=== PATIENT | male | born 1995 | race Caucasian/White ===

== ENCOUNTER 2018-01-11 13:30 | Emergency (ER) | payer MEDICAID, SELFPAY ==
[2018-01-11 13:31] VITALS: BP 163/69; PULSE 98; RESP 16; TEMP 36.6; O2SAT 97; BMI 40.6
[2018-01-11 15:10] LABS: Absolute Lymphocyte Count 2.82 X10^3/ul (0.83-4.51); Absolute Neutrophil Count 5.2 X10^3/uL (2.0-7.7); Basophil# 0.02 X10^3/uL; Basophil% 0.2 % (0-1); Eosinophil# 0.36 X10^3/uL; Eosinophils% 3.9 % (0-5); Hematocrit 43.9 % (40-54); Lymphocyte # 2.82 X10^3/ul (4.0); Lymphocyte % 30.8 % (19-41); Mean Corp Hgb Conc 34.2 g/gl (32-36); Mean Corpuscular Hgb 32.7 pg (27.0-32.0); Mean Corpuscular Volume 95.6 fL (80-94); Mean Platelet Vol. 10.1 fl (6.2-12.0); Monocyte# 0.77 X10^3/uL; Monocyte% 8.4 % (0-10); Neutrophil # 5.17 X10^3/uL (2.7-7.7); Neutrophil % 56.6 % (47-70); POSITIVE COUNT NO; POSITIVE DIFFERENTIAL NO; POSITIVE MORPHOLOGY NO; Platelet Count 207 K/mm3 (150-450); RBC Distribution Width CV 12.3 % (11.6-14.6); RBC Distribution Width SD 42.1 fl (35.1-43.9); Red Blood Count 4.59 M/mm3 (4.6-6.2); White Blood Count 9.2 K/mm3 (4.4-11.0)
[2018-01-11 15:17] LABS: Anion Gap 5 (5-15); BUN 14 mg/dL (7-18); BUN/Creat Ratio 10.1 RATIO (10-20); Calcium,Total 8.2 mg/dL (8.5-10.1); Chloride 108 mmol/L (98-107); Creatinine, Serum 1.38 mg/dL (0.70-1.30); EST Glomerular Filtration Rate 68 mL/min (>60); Est Glom Filt Rate - Afr Amer 83 mL/min (>60); Estimated Creatinine Clearance 86.69 ml/min; Glucose 94 mg/dL (74-106); Potassium 4.1 mmol/L (3.5-5.1); Sodium Level 142 mmol/L (136-145)
--- NOTE | 2018-01-11 15:28 | ED.DCSUM_ITS ---
- ER Visit Summary Date of Service: 01/11/18 Chief Complaint: Blood in stool History of Present Illness: The patient is a 22 M with no primary care physician. He reports that he has had blood on the tissue when he wipes approximately 1 week. States initially looks clotted and then becomes bright red blood. States there is no blood in the commode. States he has had this previously with hemorrhoids. Patient complains of a dull lower abdominal pain that is 7 out of 10 at worst and 3 out of 10 currently. Is worsened by eating or having a bowel movement. Is relieved by nothing. He has had nausea without vomiting. No diarrhea. No dysuria or frequency. No family history of Crohn's or ulcerative colitis. No fever or chills. Physical Examination: Vitals: Stable. Afebrile. General: Well-nourished and well-developed. Head: Normocephalic atraumatic. Neck: Supple, no lymphadenopathy. No JVD. Nontender. Cardiovascular: Regular rate and rhythm. No murmurs. Respiratory: No respiratory distress. Clear to auscultation bilaterally. Abdominal: Soft, nontender, nondistended, normal bowel sounds. No guarding, rebound, or peritoneal signs. Rectal: Anal fissure at the 12 o'clock in the prone position. Back: Nontender. Extremities: Nontender, no edema. Skin: Normal color, no rash. Neurologic: Alert and oriented ?3. Cranial nerves II through XII are intact. Normal strength and sensation. Psych: Normal affect. Test Results: CBC is normal. Hemoglobin is 15. Chem-7 is more for chloride of 108, creatinine 1.3, calcium 8.2. Creatinine in 2016 was 1.36. Emergency Department Course and Treatment: Patient is resting comfortably without complaint. Treatment Plan: Patient be discharged on Colace instructed up Dr. Montelongo in 10- 14 days if not improving. Disposition: To home in improved and stable condition. Impression: 1. Anal fissure. This note was generated with [employer] dictation software. It may contain incorrect words, spelling, and punctuation that were not noted in review of the chart prior to signing ED Disposition - Plan for ED Patient: Disposition: Home or Assisted Living Chief Complaint: GI Bleed Instructions: ED Fissure Anal Ch Prescriptions: Docusate Sodium [Colace] 100 mg PO DAILY #20 capsule Referrals: Cruz Montelongo MD [STAFF PHYSICIAN] - 10-14 Days if not better
[2018-01-11 15:36] VITALS: PULSE 87; RESP 16; O2SAT 98
== END 2018-01-11 15:37 | disposition home or self-care (01) ==
PROVIDERS: Emergency Provider Emergency Medicine
DX: K60.0 Acute anal fissure (principal); Q60.0 Renal agenesis, unilateral; Z72.0 Tobacco use
CPT/HCPCS: 36415; 80048; 85025; 99282

== ENCOUNTER 2018-06-14 16:54 | Emergency (ER) | payer SELFPAY ==
[2018-06-14 16:55] VITALS: BP 155/92; PULSE 89; RESP 18; TEMP 36.6; O2SAT 97; BMI 40.5
[2018-06-14] MEDS: Ondansetron 4 MG/2 ML Vial IV (17:26)
[2018-06-14] MEDS: 0.9% Normal Saline 1,000 ML 999 ML IV (17:26)
[2018-06-14 17:46] LABS: Absolute Lymphocyte Count 1.97 X10^3/ul (0.83-4.51); Absolute Neutrophil Count 5.8 X10^3/uL (2.0-7.7); Basophil# 0.02 X10^3/uL; Basophil% 0.2 % (0-1); Eosinophil# 0.06 X10^3/uL; Eosinophils% 0.7 % (0-5); Hematocrit 49.7 % (40-54); Hemoglobin 17.1 g/dl (13.0-16.5); Lymphocyte # 1.97 X10^3/ul (4.0); Lymphocyte % 22.8 % (19-41); Mean Corp Hgb Conc 34.4 g/gl (32-36); Mean Corpuscular Hgb 32.7 pg (27.0-32.0); Mean Platelet Vol. 10.2 fl (6.2-12.0); Monocyte# 0.73 X10^3/uL; Monocyte% 8.5 % (0-10); Neutrophil # 5.84 X10^3/uL (2.7-7.7); Neutrophil % 67.7 % (47-70); Platelet Count 231 K/mm3 (150-450); RBC Distribution Width CV 12.2 % (11.6-14.6); Red Blood Count 5.23 M/mm3 (4.6-6.2); White Blood Count 8.6 K/mm3 (4.4-11.0)
[2018-06-14 17:47] LABS: POSITIVE COUNT NO; POSITIVE DIFFERENTIAL NO; POSITIVE MORPHOLOGY NO
[2018-06-14 18:05] LABS: Anion Gap 5 (5-15); BUN 11 mg/dL (7-18); BUN/Creat Ratio 6.8 RATIO (10-20); Calcium,Total 9.3 mg/dL (8.5-10.1); Chloride 108 mmol/L (98-107); Creatinine, Serum 1.62 mg/dL (0.70-1.30); EST Glomerular Filtration Rate 57 mL/min (>60); Est Glom Filt Rate - Afr Amer 69 mL/min (>60); Estimated Creatinine Clearance 71.52 ml/min; Glucose 101 mg/dL (74-106); Potassium 3.8 mmol/L (3.5-5.1); Sodium Level 141 mmol/L (136-145)
[2018-06-14 18:06] LABS: Squamous Epithelial Cells - UA 0 SEEN /hpf (0-5)
[2018-06-14 19:02] LABS: Color, Urine Yellow (Yellow); Glucose, Dipstick Normal (Normal); Ketone-Dipstick 5 mg/dl (Negative); Leukocyte Esterase-Dipstick 25 /ul (Negative); Nitrite-Dipstick Negative (Negative); Occult Blood-Urine 10 /ul (Negative); Protein-Dipstick 500 mg/dl (Negative); Urine Clarity Sl. Cloudy (Clear); Urine Urobilinogen 4 mg/dl (Normal)
[2018-06-14 19:18] LABS: Urine Bilirubin Dipstick 1 mg/dL (Negative)
[2018-06-14 19:19] VITALS: BP 141/85; PULSE 80; RESP 14; O2SAT 98
[2018-06-14 19:19] LABS: Mucous, Urine 1+ /hpf (<or=2+)
[2018-06-14 19:20] LABS: Hyaline Cast 0-5 SEEN /lpf (0-5)
[2018-06-14 19:23] LABS: Bacteria RARE /hpf (None Seen); White Blood Cells 0-5 SEEN /hpf (0-5)
[2018-06-14 19:24] LABS: Red Blood Cells-Urine 0-5 SEEN /hpf (0-5)
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
[2018-06-14 21:02] VITALS: BP 136/75; PULSE 85; RESP 14; O2SAT 98
== END 2018-06-14 21:04 | disposition home or self-care (01) ==
LOC: ED 17:45
PROVIDERS: Emergency Provider Emergency Medicine
DX: R10.32 Left lower quadrant pain (principal); Y09 Assault by unspecified means; N18.9 Chronic kidney disease, unspecified; Z90.5 Acquired absence of kidney; Z72.0 Tobacco use
CPT/HCPCS: 71250; 74176; 80048; 81001; 85025; 96361; 96374; 99283; J7030; A4216

== ENCOUNTER 2018-07-09 21:04 | Emergency (ER) | payer SELFPAY ==
[2018-07-09 21:06] VITALS: BP 141/81; PULSE 97; RESP 18; TEMP 36.4; O2SAT 95; BMI 40.1
== END 2018-07-09 21:20 | disposition left against medical advice (07) ==
LOC: ED 21:22
PROVIDERS: Emergency Provider Emergency Medicine
DX: R69 Illness, unspecified (principal); Z53.21 Procedure and treatment not carried out due to patient leaving prior to being seen by health care provider

== ENCOUNTER 2018-07-22 11:09 | Emergency (ER) | payer SELFPAY ==
[2018-07-22 11:10] VITALS: BP 148/89; PULSE 114; RESP 20; TEMP 36.6; O2SAT 96; BMI 36.9
--- NOTE | 2018-07-22 11:28 | ED.VISSUMM ---
- ER Visit Summary Date of Service: 07/22/18 Chief Complaint: Cough, shortness of breath History of Present Illness: The patient is a 22 M with cough and dyspnea. Patient states over the past 4-5 days, he has had gradually increasing cough with productive sputum and shortness of breath. He states over the past 2 days, he is begun to have fevers and chills. He denies any chest pain. He just states he feels he cannot catch his breath. He does have a history of pneumonia and states that this feels similar. He denies back pain or dysuria. He has not found anything that improved his symptoms. Physical Examination: Vital signs reviewed General: Well-nourished, well-developed Head: Normocephalic, atraumatic Eyes: Pupils equal and reactive, extraocular muscles intact Neck, supple, no lymphadenopathy Heart: Regular rate and rhythm Respiratory: No distress, wheezing with bronchospasm in all lung marie Abdomen: Soft, nontender, nondistended, no peritoneal signs Back: Nontender Extremities: Nontender, no edema, no cords Skin: Normal color no rash Neuro: Alert and oriented, no focal or lateralizing deficits Test Results: [] Emergency Department Course and Treatment: The patient presents with cough, productive sputum, and fevers and chills. He does have wheezing all lung marie. IV was established. He was given fluids, Solu-Medrol, nebulized aerosols. He had marked improvement of his aeration. He had resolution of his wheezing. His repeat heart rate and respiratory rate within normal limits. Screening labs do show leukocytosis and demonstration of his mild chronic kidney disease. X-ray does not show any definitive pneumonia. Given the patient's infectious symptoms, leukocytosis, productive sputum and wound cover him with azithromycin. He will be kept on prednisone and an albuterol inhaler. He was counseled on concerning symptoms and reasons to return. Again, on reevaluation he is resting comfortably. I do feel that he is safe for outpatient therapy. Treatment Plan: [] Disposition: Discharge Impression: 1. Infectious bronchitis This note was generated with [employer] dictation software. It may contain incorrect words, spelling, and punctuation that were not noted in review of the chart prior to signing ED Disposition - Plan for ED Patient: Chief Complaint: Cold Sx Instructions: ED Upper Resp Infec Abx Tx Prescriptions: Albuterol Inhaler [Ventolin Hfa] 1 - 2 puff INHALATION Q4H PRN PRN #1 inhaler PRN Reason: Wheezing Azithromycin [Zithromax Z-Nico] 250 mg PO UD #1 box Prednisone 10 mg PO UD #33 tab Referrals: Care Physician,No Primary [Primary Care Provider] -
[2018-07-22] MEDS: Ipratropium/Albuterol Sulfate 3 ML AMPUL.NEB INHALATION (11:34)
[2018-07-22 11:35] VITALS: PULSE 104; RESP 18
[2018-07-22] MEDS: Albuterol 2.5 MG/3 ML VIAL.NEB. INHALATION ×2 (11:39→11:47)
[2018-07-22] MEDS: 0.9% Normal Saline 1,000 ML 150 ML IV (11:42)
[2018-07-22] MEDS: MethylPREDNISolone 125 MG/2 ML Vial IV (11:42)
[2018-07-22 11:54] LABS: Absolute Lymphocyte Count 1.88 X10^3/ul (0.83-4.51); Absolute Neutrophil Count 13.5 X10^3/uL (2.0-7.7); Basophil# 0.01 X10^3/uL; Basophil% 0.1 % (0-1); Eosinophil# 0.13 X10^3/uL; Eosinophils% 0.8 % (0-5); Hematocrit 48.4 % (40-54); Hemoglobin 16.9 g/dl (13.0-16.5); Lymphocyte # 1.88 X10^3/ul (4.0); Lymphocyte % 10.9 % (19-41); Mean Corp Hgb Conc 34.9 g/gl (32-36); Mean Corpuscular Hgb 32.9 pg (27.0-32.0); Mean Corpuscular Volume 94.3 fL (80-94); Mean Platelet Vol. 10.3 fl (6.2-12.0); Monocyte# 1.71 X10^3/uL; Monocyte% 9.9 % (0-10); Neutrophil # 13.52 X10^3/uL (2.7-7.7); Neutrophil % 78.1 % (47-70); Platelet Count 224 K/mm3 (150-450); RBC Distribution Width CV 11.8 % (11.6-14.6); RBC Distribution Width SD 40.4 fl (35.1-43.9); Red Blood Count 5.13 M/mm3 (4.6-6.2); White Blood Count 17.3 K/mm3 (4.4-11.0)
[2018-07-22 11:55] LABS: Differential Indicated SCAN CRITERIA MET; POSITIVE COUNT NO; POSITIVE DIFFERENTIAL YES; POSITIVE MORPHOLOGY NO
--- NOTE | 2018-07-22 12:00 | RAD_ITS ---
STUDY: X-RAY CHEST REASON FOR EXAM: Male, 22 years old. Cough. TECHNIQUE: PA and lateral views of the chest. COMPARISON: Comparison is made with prior study dated March 17, 2017. FINDINGS: EKG electrodes are seen. The lungs are clear and expanded. There is no demonstrated pleural abnormality. Normal size heart. Normal mediastinum and clyde. Normal visualized pulmonary arteries. Normal visualized aortic arch and descending thoracic aorta. Normal visualized thoracic spine. Normal visualized ribs, clavicles, and shoulders. There is no demonstrated abnormality of the visualized soft tissue structures of the upper abdomen. RAD/Chest PA and Lateral IMPRESSION: Normal x-ray examination of the chest. Electronically Signed: Fawad Lopez MD at 12:23 EDT Tel [phone], Service support ,
[2018-07-22 12:07] LABS: Anion Gap 11 (5-15); BUN 17 mg/dL (7-18); BUN/Creat Ratio 10.6 RATIO (10-20); Calcium,Total 9.1 mg/dL (8.5-10.1); Chloride 104 mmol/L (98-107); Creatinine, Serum 1.61 mg/dL (0.70-1.30); EST Glomerular Filtration Rate 57 mL/min (>60); Est Glom Filt Rate - Afr Amer 69 mL/min (>60); Estimated Creatinine Clearance 71.97 ml/min; Glucose 98 mg/dL (74-106); Potassium 3.8 mmol/L (3.5-5.1); Sodium Level 138 mmol/L (136-145)
[2018-07-22 12:16] LABS: Reactive Lymphocyte RARE
[2018-07-22 12:56] VITALS: BP 120/79; PULSE 109; RESP 16; O2SAT 92
== END 2018-07-22 13:00 | disposition home or self-care (01) ==
LOC: ED 12:27
PROVIDERS: Emergency Provider Emergency Medicine
DX: J20.8 Acute bronchitis due to other specified organisms (principal); D72.829 Elevated white blood cell count, unspecified; N18.9 Chronic kidney disease, unspecified
CPT/HCPCS: 71046; 80048; 85025; 94640; 96361; 96374; 99284; A4216

== ENCOUNTER → 2018-08-30 13:26 | Outpatient (CLI) | payer SELFPAY ==
--- NOTE | 2018-08-30 13:30 | US_ITS ---
STUDY: RENAL ULTRASOUND - COMPLETE REASON FOR EXAM: Male, 22 years old. Renal disease TECHNIQUE: Ultrasound evaluation of the kidneys was performed with real-time and static noble-scale imaging. COMPARISON: None. 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 LEFT KIDNEY: with mild renal hypertrophy. The left kidney measures 14.1 x 5.2 x 6.8 cm. There is a normal cortex of the left kidney. The renal cortex measures 2.3 cm. There is no left renal mass or cyst. There are no left renal calculi. There is no left hydronephrosis. DISTAL LEFT URETER: There is non-visualization of the distal left ureter. There is no demonstrated left ureterovesical junction calculus. There is a visualized left ureteral jet. AORTA: Obscured. BLADDER: The distended urinary bladder has a volume of 103.9 ml. US/Kidney and Bladder IMPRESSION: Agenesis of the RIGHT kidney. LEFT kidney is hypertrophic. There are NO stones, masses or cysts. There is NO hydronephrosis. Urinary bladder is unremarkable. Electronically Signed: Jefferson Velázquez MD at 5:26 EST , Service support ,
== END ==
LOC: US 13:27
PROVIDERS: Referring Provider Internal Medicine Nephrology; Visit Provider Internal Medicine Nephrology
DX: N18.3 Chronic kidney disease, stage 3 (moderate) (principal); Q60.0 Renal agenesis, unilateral
CPT/HCPCS: 76770

== ENCOUNTER 2018-09-28 21:57 | Emergency (ER) | payer SELFPAY ==
[2018-09-28 21:58] VITALS: BP 167/96; PULSE 92; RESP 16; TEMP 36.9; O2SAT 100; BMI 39.0
[2018-09-28] MEDS: Ondansetron 4 MG/2 ML Vial IV (22:24)
[2018-09-28] MEDS: 0.9% Normal Saline 1,000 ML 1000 ML IV (22:24)
[2018-09-28 22:46] LABS: Anion Gap 8 (5-15); BUN 14 mg/dL (7-18); Calcium,Total 8.7 mg/dL (8.5-10.1); Chloride 104 mmol/L (98-107); EST Glomerular Filtration Rate 67 mL/min (>60); Est Glom Filt Rate - Afr Amer 81 mL/min (>60); Estimated Creatinine Clearance 85.46 ml/min; Glucose 90 mg/dL (74-106); Potassium 3.8 mmol/L (3.5-5.1); Sodium Level 138 mmol/L (136-145)
--- NOTE | 2018-09-28 22:56 | ED.VISSUMM ---
- ER Visit Summary Date of Service: 09/28/18 Chief Complaint: Presents from work for nausea and vomiting History of Present Illness: The patient is a 22 M who has history of end-stage renal disease, stage III who presents with nausea and vomiting. States he is vomiting because of his renal disease. He has history of hypertension tension. Is present on no antihypertensive meds. He denies headache. Eyes double vision blurred vision loss of vision. Eyes trouble with speech or swallowing. Eyes paresthesia, anesthesia motors. Denies trouble with balance or walking. He denies diarrhea. He denies hematemesis, melena hematochezia. He reports decreased urine output. He complained of 5-minute anterior right midclavicular chest pain that was worse with movement not exertion. Physical Examination: Vital signs noted blood pressure is elevated 167/96. Head is atraumatic normocephalic. Pupils are equal round reactive. Extraocular muscles are intact. Funduscopic exam reveals normal cup-to-disc ratio has no papilledema. TMs are pearly white with landmarks noted. Nares patent with no drainage. Posterior pharynx without erythema or exudate. Uvula is midline. There is no dysphonia or dysphasia. Trachea is midline. There is no stridor with auscultation of the neck. Neck is supple. There is no carotid bruit. Heart is regular without murmur, gallop or rub. S1 and S2 are normal. Lungs are clear to auscultation with good movement of air bilaterally. Abdomen is soft nontender bowel sounds are present normal. There is no CVA tenderness noted. Patient is alert and oriented ?3. Motor is 5 over 5. Sensory is intact. DTRs are symmetric with no clonus or Babinski sign. Cranial 2 through 12 are intact. Cerebellar testing is normal. Test Results: Basic metabolic panel is remarkable for a creatinine 1.4. Emergency Department Course and Treatment: Since he has dry mucosa and tongue 1 L of normal saline was administered and he was given 4 mg Zofran. He is not had any nausea vomiting. His creatinine is baseline. Treatment Plan: Antiemetic Disposition: Discharge to home with note for work that he was seen here. Impression: 1. Nausea vomiting 2. Stage III renal disease 3. Hypertension This note was generated with [employer] software. It may contain incorrect words, spelling, and punctuation that were not noted in review of the chart prior to signing ED Disposition - Plan for ED Patient: Disposition: Home or Assisted Living Chief Complaint: General Illness Instructions: ED Nausea Vomiting, ED HTN Established, ED Insufficiency Renal Prescriptions: Ondansetron [Zofran Odt] 4 mg PO Q8H PRN PRN #10 tablet PRN Reason: Nausea Lisinopril [Zestril] 10 mg PO DAILY #30 tablet Referrals: Care Physician,No Primary [Primary Care Provider] - Claudia Quan [NON-STAFF] - 1 Week Additional Instructions: Your prescriptions were electronically transmitted to [facility] [place].
[2018-09-28] MEDS: Lisinopril 10 MG Tablet PO (23:13)
== END 2018-09-28 23:16 | disposition home or self-care (01) ==
PROVIDERS: Emergency Provider Emergency Medicine
DX: R11.2 Nausea with vomiting, unspecified (principal); I12.9 Hypertensive chronic kidney disease with stage 1 through stage 4 chronic kidney disease, or unspecified chronic kidney disease; N18.3 Chronic kidney disease, stage 3 (moderate); R07.9 Chest pain, unspecified
CPT/HCPCS: 80048; 96361; 96374; 99284; J7030; A4216; J2405

== ENCOUNTER 2021-10-31 17:56 | Emergency (ER) | payer MEDICAID, SELFPAY ==
[2021-10-31 17:57] VITALS: BP 167/110; PULSE 90; RESP 18; TEMP 36.2; O2SAT 98; BMI 42.5
--- NOTE | 2021-10-31 18:37 | EDS_ITS ---
HPI HPI - URI History of Present Illness Chief Complaint: Cough Informant: patient Narrative Narrative: Patient exposed to Covid recently and now has cough, sore throat, malaise for the past 2 days. Brings in his daughter who is symptomatic today and yesterday as well, who was also exposed. He has asthma, no asthma symptoms are now. ROS ROS ED Constitutional Constitutional ED: Reports malaise; Denies chills or fever(s) Eyes Eyes: Denies change in vision or diplopia ENT ENT ED: Reports sore throat; Denies ear pain or rhinorrhea Cardiovascular Cardiovascular: Denies chest pain or palpitations Respiratory/Chest Respiratory/Chest: Reports cough; Denies dyspnea Gastrointestinal Gastrointestinal: Denies abdominal pain, diarrhea, nausea or vomiting Genitourinary Genitourinary ED: Denies dysuria or hematuria Musculoskeletal Musculoskeletal: Denies back pain or neck pain Integumentary Denies abscess or rash Neurologic Neurologic: Denies headache(s), paresthesias or weakness Psychiatric Psychiatric: Denies anxiety or suicidal thoughts PFSH PFS Medical History (Updated 10/31/21 @ 19:[address] Sung Maloney MD) Asthma attack Home Medications lisinopril [Zestril] 10 mg PO DAILY #30 tab 09/28/18 [Rx Last Taken Unknown] ondansetron 4 mg PO Q8H PRN PRN #10 tab 09/28/18 [Rx Last Taken Unknown] Allergy/AdvReac Type Severity Reaction Status Date / Time amoxicillin Allergy Rash Verified 10/31/21 18:00 Penicillins Allergy Rash Verified 10/31/21 18:00 Social History Smoking Status: Current every day smoker tobacco type: cigarettes EXAM Physical Exam Const Vital Signs: 10/31/21 17:57 10/31/21 18:46 Temperature 97.2 F L Temperature Source Temporal Pulse Rate 90 Respiratory Rate 18 Respiratory Effort Normal Respiratory Depth Normal Respiratory Pattern Normal Blood Pressure 167/110 H Blood Pressure Mean 129 Pulse Ox 98 Oxygen Delivery Method Room Air Positive well nourished, well developed and obese General Appearance ED: well developed and NAD Nutritional Appearance: obese HEENT Reports moist mucous membranes normocephalic and atraumatic Eyes PERRL and EOMs intact bilaterally Neck full ROM and supple Resp normal respiratory effort and no use of accessory muscles Resp Narrative: Conversive in full sentences GI non-distended Back/Spine normal to inspection General Back: other FROM Extremity normal to inspection General Extremety ED: Negative for edema, pulses abnormal or tenderness General Extremity: Negative for edema or pulses abnormal Neuro oriented x3, CN's II-XII intact bilaterally and no sensory deficits noted Sensorium / Orientation: awake and alert Motor Exam: strength 5/5 throughout Skin no rashes or lesions noted and no wounds MDM MDM MDM Narrative Medical decision making narrative: Rapid Covid is negative, however this does not rule out the possibility of Covid given the history and exposure. Given appropriate discharge instructions, and reasons to return. Supportive care advised at this time and watching oxygen levels. Since he does not have a pos itive test I am unable to order him monoclonal antibody infusion therapy, which he otherwise would be a candidate for because of his BMI and history of asthma. Therefore I have ordered a send out PCR to be performed and he should quarantine in the meantime. Discharge Plan Triage Chief Complaint: Cough ED Provider: Sung Maloney Dx/Rx/DC Orders Clinical Impression: Viral URI with cough, Suspected COVID-19 virus infection Instructions: Coronavirus Disease 2019 (COVID-19): Caring for Yourself or Others Prescriptions: No Action lisinopril [Zestril] 10 MG tablet 10 mg PO DAILY Qty: 30 RF: 2 ondansetron 4 MG tablet 4 mg PO Q8H PRN PRN (Reason: Nausea) Qty: 10 RF: 0 Primary Care Provider: Care Physician,No Primary Referrals: Claudia Quan [NON-STAFF] - 1 Week if not improving Care Physician,No Primary [Primary Care Provider] - Activity Restrictions/Additional Instructions: Try to get a home portable pulse oximeter and closely watch your oxygen levels periodically. If you stay below 90% for more than a minute or so, and/or you are feeling like your breathing is getting worse, return to the emergency department for further evaluation. You would be a candidate for monoclonal antibody infusion therapy, see the attached instructions for more information; however, you need a positive test which you do not have right now. The infusion is a one-time dose to help protect you from getting more ill and becoming hospitalized with life- threatening illness due to Covid given your risk for worsening. If your PCR test returns positive in several days, either call your doctor or return to the emergency department to get in order for the infusion. Disposition Disposition: Home, Self Care
[2021-10-31 18:46] VITALS: O2SAT 98
[2021-10-31 19:55] VITALS: BP 124/86; PULSE 78; RESP 16; TEMP 36.9; O2SAT 96
== END 2021-10-31 19:55 | disposition home or self-care (01) ==
PROVIDERS: Emergency Provider Emergency Medicine; Visit Provider Emergency Medicine
DX: J06.9 Acute upper respiratory infection, unspecified (principal); Z68.41 Body mass index [BMI] 40.0-44.9, adult; Z20.822 Contact with and (suspected) exposure to COVID-19; F17.210 Nicotine dependence, cigarettes, uncomplicated; J45.909 Unspecified asthma, uncomplicated; E66.9 Obesity, unspecified
CPT/HCPCS: U0003; 87426; 87635; 99282; A4216; U0005

== ENCOUNTER 2021-12-04 13:30 | Emergency (ER) | payer MEDICAID, SELFPAY ==
[2021-12-04 13:30] VITALS: BP 155/106; PULSE 97; RESP 16; TEMP 36.3; O2SAT 96; BMI 42.8
--- NOTE | 2021-12-04 14:05 | EX.ED.DYSGE1 ---
HPI History of Present Illness Chief Complaint: GI Bleed Informant: patient Onset/Context/Timing Onset: Days Timing: Waxes and wanes Current Severity: Mild Narrative Narrative: Patient presents secondary to rectal bleeding. He states for the past several days has had bright red blood per rectum. He denies any pain with bowel movement but does state he has pain when wiping. He has had 1 prior anal fissure. He has not been taking excessive aspirin or NSAIDs. He denies abdominal pain. [facility] Medical History Asthma attack Home Medications hydrocortisone [Anusol-HC] 1 applic GA DAILY PRN #30 g 12/04/21 [Rx Last Taken Unknown] Allergy/AdvReac Type Severity Reaction Status Date / Time amoxicillin Allergy Rash Verified 12/04/21 13:31 Penicillins Allergy Rash Verified 12/04/21 13:31 Social History Smoking Status: Current every day smoker tobacco type: cigarettes ROS ROS ED Constitutional Constitutional ED: Denies chills or fever(s) Eyes Eyes: Denies change in vision ENT ENT ED: Denies sore throat Cardiovascular Cardiovascular: Denies chest pain Respiratory/Chest Respiratory/Chest: Denies cough or dyspnea Gastrointestinal Gastrointestinal: Reports other Details: Bright red blood per rectum ; Denies abdominal pain, diarrhea, nausea or vomiting Genitourinary Genitourinary ED: Denies dysuria or hematuria Musculoskeletal Musculoskeletal: Denies back pain Allergic/Immunologic Allergic/Immunologic ED: Denies urticaria EXAM Physical Exam Const Vital Signs: 12/04/21 13:30 Temperature 97.3 F L Temperature Source Temporal Pulse Rate 97 Respiratory Rate 16 Blood Pressure 155/106 H Blood Pressure Mean 122 Pulse Ox 96 Oxygen Delivery Method Room Air Positive well nourished and well developed General Appearance ED: well developed HEENT Reports moist mucous membranes Eyes PERRL and EOMs intact bilaterally Neck supple Chest Wall inspection of chest normal and palpation of chest normal Resp normal respiratory effort and clear to auscultation bilaterally Cardio regular rate and regular rhythm GI normal to inspection, nondistended, normoactive bowel sounds and non-tender GI Narrative: Rectal examination: No obvious hemorrhoids or visible fissures. Mild pain with digit insertion. No blood noted. Palpation: soft Extremity normal to inspection Neuro oriented x3 Sensorium / Orientation: alert Psych mental status grossly normal MDM MDM MDM Narrative Medical decision making narrative: CBC and chemistry studies obtained. Lab Data Labs: Laboratory Results - last 24 hr 12/04/21 12/04/21 14:10 14:10 WBC 11.9 H RBC 5.03 Hgb 17.1 H Hct 47.7 MCV 94.8 H MCH 34.0 H MCHC 35.8 RDW Std Deviation 42.1 RDW Coeff of Maryanne 12.1 Plt Count 257 MPV 9.8 Immature Gran % (Auto) 0.400 Neut % (Auto) 69.5 Lymph % (Auto) 21.8 [place] % (Auto) 7.0 Eos % (Auto) 0.9 Baso % (Auto) 0.4 Absolute Neuts (auto) 8.3 H Absolute Lymphs (auto) 2.60 Nucleated RBC % 0 Sodium 139 Potassium 3.8 Chloride 108 H Carbon Dioxide 24.0 Anion Gap 7 BUN 15 Creatinine 1.62 H Estim Creat Clear Calc 69.10 Est GFR (MDRD) Af Amer 67 Est GFR (MDRD) Non-Af 55 L BUN/Creatinine Ratio 9.3 L Glucose 97 Calcium 9.1 Treatment and Re-Evaluation Comments:: Lab work is unremarkable with hemoglobin actually concentrated at 17.1. No obvious source of bleeding noted on external exam. Patient does have pain with wiping and with digital rectal exam. I suspect he likely has a small fissure as he has a history of this. Proctofoam will be prescribed. He is referred to GI for follow-up as needed. Return instructions to the ED are also given. Discharge Plan Triage Chief Complaint: GI Bleed ED Provider: Na Haynes Dx/Rx/DC Orders Clinical Impression: Rectal bleeding Instructions: ED Lower GI Bleeding (Stable) Prescriptions: New hydrocortisone [Anusol-HC] 2.5 % cream with perineal applicator 1 applic GA DAILY PRN (Reason: pain) Qty: 30 RF: 0 Primary Care Provider: Care Physician,No Primary Referrals: Friend,Terrell, DO [STAFF PHYSICIAN] - As Needed Care Physician,No Primary [Primary Care Provider] - Disposition Disposition: Home, Self Care
[2021-12-04 14:24] LABS: Absolute Neutrophil Count 8.3 X10^3/uL (2.0-7.7); Basophil# 0.05 X10^3/uL; Basophil% 0.4 % (0-1); Eosinophil# 0.11 X10^3/uL; Eosinophils% 0.9 % (0-5); Hematocrit 47.7 % (40-54); Hemoglobin 17.1 g/dL (13.0-16.5); Lymphocyte % 21.8 % (19-41); Mean Corp Hgb Conc 35.8 g/dL (32-36); Mean Corpuscular Volume 94.8 fL (80-94); Mean Platelet Vol. 9.8 fl (6.2-12.0); Monocyte# 0.84 X10^3/uL; NRBC Flagged by Analyzer 0 % (0-5); Neutrophil # 8.28 X10^3/uL (2.7-7.7); Neutrophil % 69.5 % (47-70); Platelet Count 257 K/mm3 (150-450); RBC Distribution Width CV 12.1 % (11.6-14.6); RBC Distribution Width SD 42.1 fl (35.1-43.9); Red Blood Count 5.03 M/mm3 (4.6-6.2); White Blood Count 11.9 K/mm3 (4.4-11.0)
[2021-12-04 14:40] LABS: Anion Gap 7 (5-15); BUN 15 mg/dL (7-18); BUN/Creat Ratio 9.3 RATIO (10-20); Calcium,Total 9.1 mg/dL (8.5-10.1); Chloride 108 mmol/L (98-107); Creatinine, Serum 1.62 mg/dL (0.70-1.30); EST Glomerular Filtration Rate 55 mL/min (>60); Est Glom Filt Rate - Afr Amer 67 mL/min (>60); Glucose 97 mg/dL (74-106); Potassium 3.8 mmol/L (3.5-5.1); Sodium Level 139 mmol/L (136-145)
== END 2021-12-04 15:15 | disposition home or self-care (01) ==
PROVIDERS: Emergency Provider Emergency Medicine; Visit Provider Emergency Medicine
DX: K62.5 Hemorrhage of anus and rectum (principal); F17.210 Nicotine dependence, cigarettes, uncomplicated
CPT/HCPCS: 80048; 85025; 99283; A4216

== ENCOUNTER 2021-12-11 10:30 | Emergency (ER) | payer MEDICAID, SELFPAY ==
[2021-12-11 10:32] VITALS: BP 178/106; PULSE 86; RESP 17; TEMP 35.3; O2SAT 98; BMI 41.4
--- NOTE | 2021-12-11 10:56 | EKG12_ITS ---
Test Reason : CP Blood Pressure : / mmHG Vent. Rate : 075 BPM Atrial Rate : 075 BPM P-R Int : 154 ms QRS Dur : 082 ms QT Int : 340 ms P-R-T Axes : 038 -16 024 degrees QTc Int : 379 ms Normal sinus rhythm with sinus arrhythmia Normal ECG Confirmed by QUITA MAXWELL, SHIELA ([id number]), editor publications ARIANNE OSBORNE ([id number]) on 12/12/2021 10:19:38 A M Referred By: VNO/PL Confirmed By:TRINIDAD DEVLIN MD
--- NOTE | 2021-12-11 11:05 | EX.ED.DYSGE1 ---
HPI History of Present Illness Chief Complaint: Cough Informant: patient Narrative Narrative: Patient presents with cough and an episode of chest pain. He states he has been coughing a little bit more for a few days. He does smoke and was counseled to quit. He states he coughs not uncommonly but he been coughing a little bit more. But he has not been short of breath or had fevers chills muscle aches or congestion. He coughed last night and got sharp chest pain in the left side of his chest. It lasted about 10 minutes. It is now gone. He evidently has a history of getting this chest pain. He states over the last 5 or 6 years he has had it evaluated at different places about 5 times with no results. He has no travel surgery immobilization personal family history of DVT or PE. Of note the patient was here for some rectal bleeding the other day started Anusol. He is not having this now. He has no abdominal pain [facility] Medical History Asthma attack Home Medications hydrocortisone [Anusol-HC] 1 applic IN DAILY PRN #30 g 12/04/21 [Rx Last Taken Unknown] Allergy/AdvReac Type Severity Reaction Status Date / Time amoxicillin Allergy Rash Verified 12/11/21 10:32 Penicillins Allergy Rash Verified 12/11/21 10:32 Social History Smoking Status: Current every day smoker tobacco type: cigarettes ROS ROS ED Constitutional Constitutional ED: Denies chills or fever(s) Eyes Eyes: Denies blurry vision or change in vision ENT ENT ED: Denies ear pain, rhinorrhea or sore throat Cardiovascular Cardiovascular: Reports chest pain; Denies palpitations or racing heartbeat Respiratory/Chest Respiratory/Chest: Reports cough; Denies dyspnea or sputum Gastrointestinal Gastrointestinal: Denies abdominal pain, nausea or vomiting Genitourinary Genitourinary ED: Denies dysuria Musculoskeletal Musculoskeletal: Denies myalgias Integumentary Denies rash Neurologic Neurologic: Denies headache(s) or weakness Psychiatric Psychiatric: Reports anxiety Endocrine Endocrinology: Denies polydipsia or polyuria Allergic/Immunologic Allergic/Immunologic ED: Denies mouth swelling or urticaria EXAM Physical Exam Const Vital Signs: 12/11/21 10:32 12/11/21 11:13 12/11/21 11:16 Temperature 95.6 F L Temperature Source Temporal Pulse Rate 86 65 Respiratory Rate 17 19 H Respiratory Effort Normal Non-Labored Respiratory Pattern Normal Blood Pressure 178/106 H Blood Pressure Mean 130 Pulse Ox 98 Oxygen Delivery Method Room Air Room Air 12/11/21 11:29 12/11/21 11:30 Temperature 95.6 F L Temperature Source Temporal Pulse Rate 80 80 Respiratory Rate 18 18 Respiratory Effort Respiratory Pattern Blood Pressure 168/103 H 168/103 H Blood Pressure Mean 124 124 Pulse Ox 96 96 Oxygen Delivery Method Room Air Room Air Positive well nourished and well developed General Appearance ED: well developed and NAD HEENT Reports moist mucous membranes Eyes General Eye ED: Negative for pale conjunctiva or scleral icterus Neck no JVD Chest Wall inspection of chest normal Chest Narrative: Mild tenderness to the left chest wall although he is not having pain now until I pressed on it. Resp normal respiratory effort and clear to auscultation bilaterally Effort and Inspection: Negative for pain with movement Auscultation: Negative for rales or rhonchi Cardio regular rate, regular rhythm and no murmurs GI normal to inspection, nondistended, normoactive bowel sounds and non-tender Palpation: soft Back/Spine no CVA tenderness Extremity normal to inspection General Extremety ED: Negative for edema or tenderness General Extremity: Negative for edema Neuro oriented x3 Sensorium / Orientation: alert Skin no rashes or lesions noted and no wounds MDM MDM MDM Narrative Medical decision making narrative: I reviewed blood work that was just done days ago. We added a troponin because of the symptoms. This was negative despite having symptoms last night. Chest x-ray is negative. EKG shows no acute process and is unchanged from prior. Covid is negative. This patient has had the symptoms off and on for about 5 or 6 years. I think he is safe for discharge. Lab Data Attestation: I reviewed the patient's lab results. Labs: Laboratory Results - last 24 hr 12/11/21 11:07 Troponin I High Sens 7 Radiography Diagnostic Testing: Clinical Impression(s) from Imaging Studies Chest X-Ray 12/11/21 11:20 IMPRESSION: Normal x-ray examination of the chest. Electronically Signed: Fawad Lopez MD at 11:56 EST , EKG Initial EKG: Comments: EKG done for transient chest pain read by me shows normal sinus rhythm with a rate of 75. Mild respiratory variation. No ventricular ectopy. No acute ST elevation or depression. IN interval QRS duration and QTc normal. Discharge Plan Triage Chief Complaint: Cough ED Provider: Marco Serrano Dx/Rx/DC Orders Clinical Impression: Chest pain, Chronic cough, Tobacco abuse Instructions: ED Chest Pain, Uncertain Cause, ED How to Quit Smoking Prescriptions: No Action hydrocortisone [Anusol-HC] 2.5 % cream with perineal applicator 1 applic IN DAILY PRN (Reason: pain) Qty: 30 RF: 0 Primary Care Provider: Care Physician,No Primary Referrals: Marleny Salmeron MD [STAFF PHYSICIAN] - 3-5 Days if not improving Care Physician,No Primary [Primary Care Provider] - Disposition Disposition: Home, Self Care
[2021-12-11] MEDS: Ipratropium/Albuterol Sulfate 3 ML AMPUL.NEB INHALATION (11:12)
[2021-12-11 11:13] VITALS: PULSE 65; RESP 19
--- NOTE | 2021-12-11 11:20 | RAD_ITS ---
STUDY: X-RAY CHEST REASON FOR EXAM: Male, 26 years old. Chest pain TECHNIQUE: Single AP portable view of the chest. COMPARISON: Comparison is made with prior study dated 07/22/2018. FINDINGS: The lungs are clear and expanded. There is no demonstrated pleural abnormality. Normal size heart. Normal mediastinum and clyde. Normal visualized pulmonary arteries. Normal visualized aortic arch and descending thoracic aorta. Normal visualized thoracic spine. Normal visualized ribs, clavicles, and shoulders. There is no demonstrated abnormality of the visualized soft tissue structures of the upper abdomen. RAD/Chest 1 View (Portable) IMPRESSION: Normal x-ray examination of the chest. Electronically Signed: Fawad Lopez MD at 11:56 EST ,
[2021-12-11 11:29] VITALS: BP 168/103; PULSE 80; RESP 18; O2SAT 96
[2021-12-11 11:30] VITALS: BP 168/103; PULSE 80; RESP 18; TEMP 35.3; O2SAT 96
[2021-12-11 11:34] LABS: Troponin-I HS 7 pg/mL (3.0-78.0)
[2021-12-11 12:48] VITALS: BP 157/81; PULSE 89; RESP 15; O2SAT 99
== END 2021-12-11 12:52 | disposition home or self-care (01) ==
PROVIDERS: Emergency Provider Emergency Medicine; Visit Provider Emergency Medicine
DX: R07.9 Chest pain, unspecified (principal); R05.3 Chronic cough; F17.210 Nicotine dependence, cigarettes, uncomplicated
CPT/HCPCS: 71045; 84484; 87426; 93005; 94640; 99284; A4216

== ENCOUNTER 2022-04-19 12:55 | Emergency (ER) | payer MEDICAID, SELFPAY ==
[2022-04-19 12:55] VITALS: BP 175/124; PULSE 93; RESP 16; TEMP 36.9; O2SAT 99; BMI 39.7
--- NOTE | 2022-04-19 13:22 | RAD_ITS ---
STUDY: X-RAY - RIGHT FOOT CLINICAL: Male, 26 years old. Trauma TECHNIQUE: 3 view(s) of the foot. COMPARISON: None. FINDINGS: Normal talus, calcaneus, and tarsal bones. Normal visualized subtalar, talonavicular, calcaneocuboid, tarsal and tarsometatarsal articulations. Normal metatarsi. There is mild degenerative arthrosis of the metatarsophalangeal joint of the hallux . Normal tibial and fibular sesamoid bones. Normal interphalangeal joint of the great toe. Normal phalanges of the great toe. Normal second through fifth metatarsophalangeal joints. Normal interphalangeal joints and phalanges of the lesser toes. The soft tissue structures are unremarkable. RAD/Foot min 3 Views IMPRESSION: No evidence of acute osseous injury. Electronically Signed: Mau Grissom MD at 13:45 EDT ,
--- NOTE | 2022-04-19 14:26 | ED.VIS.LOWEX ---
HPI History of Present Illness Chief Complaint: Lower Extremity Injury Informant: patient Narrative Narrative: Patient has right foot pain. He was playing basketball couple days before this started and he may have been stepped on but does not recall any specific pain. The next day it really started to hurt. It is all at the first MTP. He also has a history of gout and this feels just like gout to him. No other injury. No other areas of pain. He has used prednisone before which is very helpful for him. [facility] Medical History Asthma attack Home Medications hydrocodone-acetaminophen 5-325mg 5mg-325mg 1 tab PO Q6H PRN pain 3 days #10 tabs 04/19/22 [Rx Last Taken Unknown] prednisone 20 mg tablet 60 mg PO DAILY #15 tabs 04/19/22 [Rx Last Taken Unknown] Allergy/AdvReac Type Severity Reaction Status Date / Time amoxicillin Allergy Rash Verified 04/19/22 12:57 Penicillins Allergy Rash Verified 04/19/22 12:57 Social History Smoking Status: Current every day smoker tobacco type: cigarettes ROS ROS ED Constitutional Constitutional ED: Denies chills, fever(s), subjective or sweats ENT ENT ED: Denies rhinorrhea Cardiovascular Cardiovascular: Denies chest pain Respiratory/Chest Respiratory/Chest: Denies cough, dyspnea or dyspnea on exertion Gastrointestinal Gastrointestinal: Denies nausea or vomiting Musculoskeletal Musculoskeletal: Reports other Details: Right foot pain as above ; Denies back pain Integumentary Denies abscess Neurologic Neurologic: Denies paresthesias or weakness Endocrine Endocrinology: Denies polydipsia or polyphagia Hematologic/Lymphatic Hematologic/Lymphatic: Denies easy bleeding or easy bruising Allergic/Immunologic Allergic/Immunologic ED: Denies urticaria EXAM Physical Exam Const Vital Signs: 04/19/22 12:55 Temperature 98.5 F Temperature Source Temporal Pulse Rate 93 Respiratory Rate 16 Blood Pressure 175/124 H Blood Pressure Mean 141 Pulse Ox 99 Oxygen Delivery Method Room Air Positive well nourished, well developed and obese General Appearance ED: well developed Nutritional Appearance: obese HEENT normocephalic and atraumatic Neck Neck Narrative: No JVD Chest Wall inspection of chest normal Resp normal respiratory effort Auscultation: Negative for rales Cardio regular rate and regular rhythm GI non-tender and non-distended Extremity Extremity Narrative: Patient does appear to have may be some fullness around his first MTP. No ecchymosis. No erythema or warmth though. No deformity. Neuro Sensorium / Orientation: alert Psych mental status grossly normal Skin no wounds MDM MDM MDM Narrative Medical decision making narrative: We did do three-view x-ray of the foot. This is looked at by me and read by radiology as negative. His history is actually more consistent with gout. We will treat him with prednisone which has helped him before. I am also to recheck his blood pressure. Patient denies ever being treated for blood pressure but it is usually up when he has it checked. It is vitally important that he follows up to have this managed. I will give him number to primary care physician. Even if he is feeling better he needs to have his blood pressure checked as he may need treatment. Radiography Diagnostic Testing: Clinical Impression(s) from Imaging Studies Foot X-Ray 04/19/22 13:22 IMPRESSION: No evidence of acute osseous injury. Electronically Signed: Mau Grissom MD at 13:45 EDT , Discharge Plan Triage Chief Complaint: Lower Extremity Injury ED Provider: Marco Serrano Dx/Rx/DC Orders Clinical Impression: Acute gout of right foot, Elevated blood pressure reading Instructions: Hypertension Dc, ED Gout Prescriptions: New hydrocodone-acetaminophen 5-325 mg tablet 1 tab PO Q6H PRN (Reason: pain) 3 Days Qty: 10 0RF prednisone 20 mg tablet 60 mg PO DAILY Qty: 15 0RF Primary Care Provider: Care Physician,No Primary Referrals: Anne Madrid MD [STAFF PHYSICIAN] - As soon as possible Care Physician,No Primary [Primary Care Provider] - Activity Restrictions/Additional Instructions: Your blood pressure reading is elevated today. It is very important that you follow-up to have this rechecked. Even if you feel fine, you need to have your blood pressure checked and maybe managed. Disposition Disposition: Home, Self Care
[2022-04-19] MEDS: HYDROcodone Bitartrate/Apap 5/325 Tablet PO (14:53)
[2022-04-19] MEDS: predniSONE 20 MG Tablet 60 MG PO (14:53)
[2022-04-19 15:01] VITALS: BP 152/79; PULSE 84; RESP 17; O2SAT 97
== END 2022-04-19 15:02 | disposition home or self-care (01) ==
PROVIDERS: Emergency Provider Emergency Medicine; Visit Provider Emergency Medicine
DX: M10.071 Idiopathic gout, right ankle and foot (principal); R03.0 Elevated blood-pressure reading, without diagnosis of hypertension; F17.210 Nicotine dependence, cigarettes, uncomplicated
CPT/HCPCS: 73630; 99283

== ENCOUNTER 2022-09-02 21:00 | Emergency (ER) | payer MEDICAID, SELFPAY ==
[2022-09-02 21:01] VITALS: BP 153/89; PULSE 82; RESP 99; TEMP 36.8; BMI 37.3
--- NOTE | 2022-09-02 21:57 | ED.VIS.DYS ---
HPI History of Present Illness Chief Complaint: Shortness of Breath Informant: patient Onset/Context/Timing Onset: Yesterday Context: sudden Timing: Continuous Quality: Positive for Dyspnea on exertion Worsened by: Exertion Relieved by: Nothing Associated Symptoms cough and white sputum; Negative for rhinorrhea, post nasal drip, ear pain, fever, sore throat, subjective, chills or sweats Chest Pain: Positive for Continuous and Tightness Narrative Narrative: Patient presents with shortness of breath that began yesterday. Patient states it began rather suddenly. Patient states his breathing is worse with any exertion. Patient states that became worse again tonight at work. Patient admits to a cough with some white sputum. Patient also admits to some pain across his upper chest. Patient describes this as a tightness. Patient states this started approximately 2 hours prior to arrival. Patient states he also gets some intermittent numbness down his left arm. Patient states it only last for a few seconds and then resolves. Patient states this comes and goes fairly frequently however. [facility] Medical History (Updated 09/02/22 @ 22:[address] Tha Brooks DO) Asthma attack Liver abscess Home Medications hydrocodone-acetaminophen 5-325mg 5mg-325mg 1 tab PO Q6H PRN pain 3 days #10 tabs 04/19/22 [Rx Last Taken Unknown] prednisone 20 mg tablet 60 mg PO DAILY #15 tabs 04/19/22 [Rx Last Taken Unknown] albuterol sulfate 90 mcg/actuation aerosol inhaler (Ventolin HFA) 1 - 2 puff inhalation Q4H PRN PRN Wheezing ##1 09/02/22 [Rx Last Taken Unknown] Allergy/AdvReac Type Severity Reaction Status Date / Time amoxicillin Allergy Rash Verified 09/02/22 21:05 Penicillins Allergy Rash Verified 09/02/22 21:05 Surgical History (Updated 09/02/22 @ 21:[address] Tha Brooks DO) Hx of appendectomy Social History Smoking Status: Current every day smoker tobacco type: cigarettes ROS ROS ED Constitutional Constitutional ED: Denies chills or fever(s) Eyes Eyes: Denies blurry vision or change in vision ENT ENT ED: Denies rhinorrhea or sore throat Cardiovascular Cardiovascular: Reports chest pain; Denies palpitations Respiratory/Chest Respiratory/Chest: Reports cough and dyspnea Gastrointestinal Gastrointestinal: Reports nausea and vomiting Genitourinary Genitourinary ED: Denies dysuria or hematuria Musculoskeletal Musculoskeletal: Denies back pain or neck pain Integumentary Denies abscess or rash Neurologic Neurologic: Denies headache(s) or weakness Allergic/Immunologic Allergic/Immunologic ED: Denies mouth swelling or urticaria EXAM Physical Exam Const Vital Signs: 09/02/22 21:01 09/02/22 22:06 09/02/22 22:11 Temperature 98.3 F Temperature Source Temporal Pulse Rate 82 69 Respiratory Rate 99 H 18 Respiratory Effort Normal Non-Labored Respiratory Depth Normal Respiratory Pattern Normal Blood Pressure 153/89 H Blood Pressure Mean 110 Oxygen Delivery Method Room Air Room Air Positive well nourished, well developed and obese General Appearance ED: well developed and NAD Nutritional Appearance: obese HEENT Reports moist mucous membranes Neck supple and no JVD Resp normal respiratory effort Auscultation: wheezes expiratory wheezes and throughout Cardio regular rate, regular rhythm and no murmurs GI normal to inspection, nondistended, normoactive bowel sounds and non-tender Palpation: soft Extremity normal to inspection General Extremety ED: Negative for edema or tenderness General Extremity: Negative for edema Neuro oriented x3, CN's II-XII intact bilaterally and no sensory deficits noted Sensorium / Orientation: alert Motor Exam: strength 5/5 throughout Psych mental status grossly normal Skin no rashes or lesions noted MDM MDM MDM Narrative Medical decision making narrative: Patient was given a DuoNeb aerosol here. Patient felt better after this. CBC shows a mild leukocytosis of 14.1. Comprehensive metabolic profile shows a creatinine of 1.81. This is consistent with prior results. PA and lateral chest x-ray was obtained. There are 2 views. On my interpretation, lung marie are clear. There is normal cardiac silhouette. Bony thorax is normal. There is no acute process noted. Radiologist also interpreted the x-ray and agrees. Patient had mild wheezing on reevaluation. Patient was given a repeat albuterol aerosol. Patient was given a prescription for an albuterol inhaler. Patient was instructed to follow-up with his primary care physician in 5 to 7 days. Patient understood and was agreeable with the plan. All questions were answered. Lab Data Attestation: I reviewed the patient's lab results. Labs: Laboratory Results - last 24 hr 09/02/22 09/02/22 22:09 22:09 WBC 14.1 H RBC 4.66 Hgb 15.7 Hct 44.6 MCV 95.7 H MCH 33.7 H MCHC 35.2 RDW Std Deviation 41.1 RDW Coeff of Maryanne 11.7 Plt Count 239 MPV 9.7 Immature Gran % (Auto) 0.300 Neut % (Auto) 71.9 H Lymph % (Auto) 18.9 L [place] % (Auto) 7.3 Eos % (Auto) 1.2 Baso % (Auto) 0.4 Absolute Neuts (auto) 10.1 H Absolute Lymphs (auto) 2.67 Nucleated RBC % 0 Sodium 139 Potassium 4.0 Chloride 109 H Carbon Dioxide 25.0 Anion Gap 5 BUN 16 Creatinine 1.81 H Estim Creat Clear Calc 63.86 Est GFR (MDRD) Af Amer 58 L Est GFR (MDRD) Non-Af 48 L BUN/Creatinine Ratio 8.8 L Glucose 94 Calcium 8.8 Total Bilirubin 0.30 AST 18 ALT 23 Alkaline Phosphatase 118 H Total Protein 6.6 Albumin 3.4 Globulin 3.2 Albumin/Globulin Ratio 1.1 Radiography Chest X-Ray - ED: 2 View, Read by ED Physician, Read by Radiologist and No Acute Disease Diagnostic Testing: Clinical Impression(s) from Imaging Studies Chest X-Ray 09/02/22 22:20 IMPRESSION: No acute abnormal cardiopulmonary finding. Electronically Signed: Jhon Davis MD at 22:38 EST Reading Location ID and State: [facility] / [place] Tel , Service support , Discharge Plan Triage Chief Complaint: Shortness of Breath ED Provider: Tha Brooks Dx/Rx/DC Orders Clinical Impression: Dyspnea, Wheezing on auscultation Instructions: ED Dyspnea Prescriptions: New albuterol sulfate [Ventolin HFA] 1 INHALER inhaler 1 - 2 puff inhalation Q4H PRN PRN (Reason: Wheezing) Qty: 1 0RF No Action hydrocodone-acetaminophen 5-325 mg tablet 1 tab PO Q6H PRN (Reason: pain) 3 Days Qty: 10 0RF prednisone 20 mg tablet 60 mg PO DAILY Qty: 15 0RF Stand Alone Forms: ED Work / School Excuse Primary Care Provider: Care Physician,No Primary Referrals: Columba Nair MD [Med Staff - Active Staff] - 5-7 Days Care Physician,No Primary [Primary Care Provider] - Disposition Disposition: Home, Self Care
[2022-09-02] MEDS: Ipratropium/Albuterol Sulfate 3 ML AMPUL.NEB INHALATION (22:05)
[2022-09-02 22:06] VITALS: PULSE 69; RESP 18
[2022-09-02 22:11] VITALS: O2SAT 100
[2022-09-02 22:19] LABS: Absolute Lymphocyte Count 2.67 X10^3/uL (0.83-4.51); Absolute Neutrophil Count 10.1 X10^3/uL (2.0-7.7); Basophil# 0.05 X10^3/uL; Basophil% 0.4 % (0-1); Eosinophil# 0.17 X10^3/uL; Eosinophils% 1.2 % (0-5); Hematocrit 44.6 % (40-54); Hemoglobin 15.7 g/dL (13.0-16.5); Lymphocyte # 2.67 X10^3/ul (0.83-4.51); Lymphocyte % 18.9 % (19-41); Mean Corp Hgb Conc 35.2 g/dL (32-36); Mean Corpuscular Hgb 33.7 pg (27.0-32.0); Mean Corpuscular Volume 95.7 fL (80-94); Mean Platelet Vol. 9.7 fl (6.2-12.0); Monocyte# 1.03 X10^3/uL; Monocyte% 7.3 % (0-10); NRBC Flagged by Analyzer 0 % (0-5); Neutrophil # 10.13 X10^3/uL (2.7-7.7); Neutrophil % 71.9 % (47-70); Platelet Count 239 K/mm3 (150-450); RBC Distribution Width CV 11.7 % (11.6-14.6); RBC Distribution Width SD 41.1 fl (35.1-43.9); Red Blood Count 4.66 M/mm3 (4.6-6.2); White Blood Count 14.1 K/mm3 (4.4-11.0)
--- NOTE | 2022-09-02 22:20 | RAD_ITS ---
STUDY: X-RAY CHEST REASON FOR EXAM: Male, 26 years old. Dyspnea TECHNIQUE: PA and lateral views of the chest. COMPARISON: 12/11/2021 FINDINGS: The lungs are clear and expanded. There is no demonstrated pleural abnormality. Normal size heart. Normal mediastinum and clyde. Normal visualized pulmonary arteries. Normal visualized aortic arch and descending thoracic aorta. There is no demonstrated abnormality of the visualized soft tissue structures of the upper abdomen. RAD/Chest PA and Lateral IMPRESSION: No acute abnormal cardiopulmonary finding. Electronically Signed: Jhon Davis MD at 22:38 EST ,
[2022-09-02 22:38] LABS: ALB/GLOB Ratio 1.1 RATIO (0.9-2.4); AST(SGOT) 18 U/L (15-37); Alanine Aminotransfer ALT/SGPT 23 U/L (16-61); Albumin, Serum 3.4 g/dL (3.2-5.0); Alkaline Phosphatase 118 U/L (45-117); Anion Gap 5 (5-15); BUN 16 mg/dL (7-18); BUN/Creat Ratio 8.8 RATIO (10-20); Calcium,Total 8.8 mg/dL (8.5-10.1); Chloride 109 mmol/L (98-107); Creatinine, Serum 1.81 mg/dL (0.70-1.30); EST Glomerular Filtration Rate 48 mL/min (>60); Est Glom Filt Rate - Afr Amer 58 mL/min (>60); Estimated Creatinine Clearance 63.86 ml/min; Globulin 3.2 g/dL (2.2-4.2); Glucose 94 mg/dL (74-106); Protein, Total 6.6 g/dL (6.4-8.2); Sodium Level 139 mmol/L (136-145)
[2022-09-02 22:53] VITALS: PULSE 95; RESP 18
[2022-09-02] MEDS: Albuterol 2.5 MG/3 ML VIAL.NEB. INHALATION (22:53)
[2022-09-02 22:54] VITALS: PULSE 79; RESP 17; O2SAT 99
== END 2022-09-02 23:11 | disposition home or self-care (01) ==
PROVIDERS: Emergency Provider Emergency Medicine; Visit Provider Emergency Medicine
DX: R06.00 Dyspnea, unspecified (principal); R06.2 Wheezing; F17.210 Nicotine dependence, cigarettes, uncomplicated; E66.9 Obesity, unspecified
CPT/HCPCS: 71046; 80053; 85025; 94640; 99284; A4216

== ENCOUNTER 2023-02-19 17:39 | Emergency (ER) | payer MEDICAID, SELFPAY ==
[2023-02-19 17:39] VITALS: BP 154/103; PULSE 90; RESP 20; TEMP 36.1; O2SAT 94; BMI 38.2
--- NOTE | 2023-02-19 17:48 | EKG12_ITS ---
Test Reason : SOB Blood Pressure : / mmHG Vent. Rate : 080 BPM Atrial Rate : 080 BPM P-R Int : 138 ms QRS Dur : 082 ms QT Int : 334 ms P-R-T Axes : 060 -05 045 degrees QTc Int : 385 ms Normal sinus rhythm with sinus arrhythmia Normal ECG Confirmed by QUITA MAXWELL, SHIELA ([id number]), school photograph editor ARIANNE OSBORNE ([id number]) on 02/23/2023 11:42:52 AM Referred By: RICARDO Confirmed By:TRINIDAD DEVLIN MD
--- NOTE | 2023-02-19 17:48 | RAD_ITS ---
EXAM: XR CHEST, 1 VIEW CLINICAL INDICATION: sob, fever chills TECHNIQUE: Frontal view of the chest. This report was created using [email or web address] report generation technology. COMPARISON: 09.02.22 FINDINGS: LUNGS AND PLEURAL SPACES: Unremarkable. No consolidation or edema. No pneumothorax. No effusion. HEART: Unremarkable. Cardiac silhouette not enlarged. MEDIASTINUM: Central airways and mediastinal contour are unremarkable. BONES/JOINTS: Unremarkable. SOFT TISSUES: Unremarkable. RAD/Chest 1 View (Portable) IMPRESSION: No radiographic evidence of acute cardiopulmonary disease. Electronically Signed: Mark Giraldo MD at 18:36 EDT ,
--- NOTE | 2023-02-19 19:02 | ED.VIS.DYS ---
HPI History of Present Illness Chief Complaint: Shortness of Breath Narrative Narrative: 27-year-old male presenting with shortness of breath. Patient states he has been short of breath since yesterday. He feels like someone is standing on his chest. He does have a slight cough. He has dyspnea on exertion. Patient states he smokes a pack of cigarettes a day. He has history of bronchitis. No history of COPD or asthma. Has not had a fever or chills. He does state that he was woken up multiple times last night with shortness of breath and a feeling of being hot. Patient denies cardiac history. No history of DVT/PE and no risk factors. [facility] Medical History Asthma attack Liver abscess Home Medications hydrocodone-acetaminophen 5-325mg 5mg-325mg 1 tab PO Q6H PRN pain 3 days #10 tabs 04/19/22 [Rx Last Taken Unknown] prednisone 20 mg tablet 60 mg PO DAILY #15 tabs 04/19/22 [Rx Last Taken Unknown] albuterol sulfate 90 mcg/actuation aerosol inhaler (Ventolin HFA) 1 - 2 puff inhalation Q4H PRN PRN Wheezing ##1 09/02/22 [Rx Last Taken Unknown] albuterol sulfate 90 mcg/actuation aerosol inhaler (Ventolin HFA) 1 - 2 puff inhalation Q4H PRN PRN Wheezing #8.5 grams 02/19/23 [Rx Last Taken Unknown] prednisone 50 mg tablet 50 mg PO DAILY #5 tabs 02/19/23 [Rx Last Taken Unknown] Allergy/AdvReac Type Severity Reaction Status Date / Time amoxicillin Allergy Rash Verified 02/19/23 17:41 Penicillins Allergy Rash Verified 02/19/23 17:41 Surgical History Hx of appendectomy Social History Smoking Status: Current every day smoker tobacco type: cigarettes ROS ROS ED Constitutional Constitutional ED: Reports chills and sweats; Denies fever(s) Eyes Eyes: Denies change in vision ENT ENT ED: Denies rhinorrhea, sore throat or other Cardiovascular Cardiovascular: Reports chest pain Respiratory/Chest Respiratory/Chest: Reports cough, dyspnea and dyspnea on exertion Gastrointestinal Gastrointestinal: Denies abdominal pain, nausea or vomiting Genitourinary Genitourinary ED: Denies dysuria or hematuria Musculoskeletal Musculoskeletal: Denies arthralgias or myalgias Integumentary Denies abscess Neurologic Neurologic: Denies headache(s) Psychiatric Psychiatric: Denies anxiety or depression EXAM Physical Exam Const Vital Signs: 02/19/23 17:39 02/19/23 17:49 02/19/23 19:33 Temperature 97 F L Temperature Source Temporal Pulse Rate 90 Respiratory Rate 20 H Respiratory Effort Short of Breath Respiratory Depth Deep Respiratory Pattern Normal Blood Pressure 154/103 H Blood Pressure Mean 120 Pulse Ox 94 93 Oxygen Delivery Method Room Air Room Air 02/19/23 19:33 02/19/23 19:20 02/19/23 20:02 Temperature Temperature Source Pulse Rate 82 95 Respiratory Rate 18 18 Respiratory Effort Respiratory Depth Respiratory Pattern Normal Blood Pressure 150/89 H Blood Pressure Mean 109 Pulse Ox 93 93 Oxygen Delivery Method Room Air Room Air Positive well nourished General Appearance ED: NAD; Negative for pallor HEENT Reports moist mucous membranes Eyes PERRL and EOMs intact bilaterally Neck no lymphadenopathy and supple Resp Resp Narrative: Slightly tachypneic. Patient speaking in full sentences. Auscultation: wheezes expiratory wheezes Cardio regular rate and regular rhythm GI non-tender Neuro oriented x3 and CN's II-XII intact bilaterally Sensorium / Orientation: alert Psych mental status grossly normal Skin no wounds General Skin Exam: Negative for jaundice or pallor MDM MDM MDM Narrative Medical decision making narrative: Patient presenting shortness of breath. His symptoms started last evening. He also complains of chest pain as if somebody standing on his chest. Is been constant since last evening. He smokes a pack of cigarettes per day. No cardiac history. No DVT/PE history. Patient wheezing on examination. He is treated with Solu-Medrol 125, breathing treatments. Differential at this point includes pneumonia, COVID, influenza, ACS, bronchitis. CBC to assess white blood cell count, hemoglobin, platelets, differential. BMP to assess renal function, electrolytes, glucose. High-sensitivity troponin and EKG to assess for cardiac source. Chest x-ray was also obtained. As for rapid COVID and influenza are negative. Chest x-ray my interpretation shows no acute cardiopulmonary process. EKG on my interpretation is a normal sinus rhythm with a ventricular rate of 80 bpm without sign of ischemic change or ectopy. CBC shows slight leukocytosis 16.1. Hemoglobin hemoconcentrated at 17.3. Platelets are normal. Creatinine 1.59 and near baseline. Electrolytes unremarkable. High-sensitivity troponin is 9 after greater than 12 hours of chest pain. I do not believe he needs a delta troponin. EKG on my interpretation shows a normal sinus rhythm with a ventricular rate of 80 bpm without sign of ischemia or ectopy. I have low clinical suspicion for PE. Patient reevaluated after breathing treatments. I will ambulate him with a pulse ox. Patient ambulated on pulse ox maintained sats of 93%. Will be discharged home with prednisone and albuterol. Return precautions discussed. Impression: 1. Acute bronchitis Lab Data Labs: Laboratory Results - last 24 hr 02/19/23 02/19/23 19:15 19:15 WBC 16.1 H RBC 5.15 Hgb 17.3 H Hct 49.2 MCV 95.5 H MCH 33.6 H MCHC 35.2 RDW Std Deviation 41.1 RDW Coeff of Maryanne 11.7 Plt Count 256 MPV 10.1 Immature Gran % (Auto) 0.600 Neut % (Auto) 78.7 H Lymph % (Auto) 12.2 L Sandoval % (Auto) 6.6 Eos % (Auto) 1.5 Baso % (Auto) 0.4 Absolute Neuts (auto) 12.7 H Absolute Lymphs (auto) 1.96 Nucleated RBC % 0 Sodium 138 Potassium 3.7 Chloride 108 H Carbon Dioxide 25.0 Anion Gap 5 BUN 17 Creatinine 1.59 H Estim Creat Clear Calc 72.06 Est GFR (MDRD) Af Amer 67 Est GFR (MDRD) Non-Af 56 L BUN/Creatinine Ratio 10.7 Glucose 86 Calcium 9.3 Troponin I High Sens 9 Radiography Diagnostic Testing: Clinical Impression(s) from Imaging Studies Chest X-Ray 02/19/23 17:48 IMPRESSION: No radiographic evidence of acute cardiopulmonary disease. Electronically Signed: Mark Giraldo MD at 18:36 EDT , Discharge Plan Triage Chief Complaint: Shortness of Breath ED Provider: Ryley Ann Dx/Rx/DC Orders Instructions: ED Bronchitis with Wheezing (Adult) Prescriptions: New prednisone 50 mg tablet 50 mg PO DAILY Qty: 5 0RF albuterol sulfate [Ventolin HFA] 90 mcg/actuation HFA aerosol inhaler 1 - 2 puff inhalation Q4H PRN PRN (Reason: Wheezing) Qty: 8.5 0RF No Action hydrocodone-acetaminophen 5-325 mg tablet 1 tab PO Q6H PRN (Reason: pain) 3 Days Qty: 10 0RF prednisone 20 mg tablet 60 mg PO DAILY Qty: 15 0RF albuterol sulfate [Ventolin HFA] 1 INHALER inhaler 1 - 2 puff inhalation Q4H PRN PRN (Reason: Wheezing) Qty: 1 0RF Primary Care Provider: Care Physician,No Primary Referrals: Basilio Dietz DO [Med Staff - [facility]] - 3-5 Days Care Physician,No Primary [Primary Care Provider] - Disposition Disposition: Home, Self Care
[2023-02-19] MEDS: MethylPREDNISolone 125 MG/2 ML Vial IV (19:15)
[2023-02-19 19:20] VITALS: PULSE 82; RESP 18
[2023-02-19] MEDS: Albuterol 2.5 MG/3 ML VIAL.NEB. INHALATION ×2 (19:20→20:56)
[2023-02-19] MEDS: Ipratropium/Albuterol Sulfate 3 ML AMPUL.NEB INHALATION (19:20)
[2023-02-19 19:31] LABS: Absolute Lymphocyte Count 1.96 X10^3/uL (0.83-4.51); Absolute Neutrophil Count 12.7 X10^3/uL (2.0-7.7); Basophil# 0.07 X10^3/uL; Basophil% 0.4 % (0-1); Eosinophil# 0.24 X10^3/uL; Eosinophils% 1.5 % (0-5); Hematocrit 49.2 % (40-54); Hemoglobin 17.3 g/dL (13.0-16.5); Lymphocyte # 1.96 X10^3/ul (0.83-4.51); Lymphocyte % 12.2 % (19-41); Mean Corp Hgb Conc 35.2 g/dL (32-36); Mean Corpuscular Hgb 33.6 pg (27.0-32.0); Mean Corpuscular Volume 95.5 fL (80-94); Mean Platelet Vol. 10.1 fl (6.2-12.0); Monocyte# 1.06 X10^3/uL; Monocyte% 6.6 % (0-10); NRBC Flagged by Analyzer 0 % (0-5); Neutrophil # 12.65 X10^3/uL (2.7-7.7); Neutrophil % 78.7 % (47-70); Platelet Count 256 K/mm3 (150-450); RBC Distribution Width CV 11.7 % (11.6-14.6); RBC Distribution Width SD 41.1 fl (35.1-43.9); Red Blood Count 5.15 M/mm3 (4.6-6.2); White Blood Count 16.1 K/mm3 (4.4-11.0)
[2023-02-19 19:33] VITALS: O2SAT 93
[2023-02-19 19:51] LABS: Anion Gap 5 (5-15); BUN 17 mg/dL (7-18); BUN/Creat Ratio 10.7 RATIO (10-20); Calcium,Total 9.3 mg/dL (8.5-10.1); Chloride 108 mmol/L (98-107); Creatinine, Serum 1.59 mg/dL (0.70-1.30); EST Glomerular Filtration Rate 56 mL/min (>60); Est Glom Filt Rate - Afr Amer 67 mL/min (>60); Estimated Creatinine Clearance 72.06 ml/min; Glucose 86 mg/dL (74-106); Potassium 3.7 mmol/L (3.5-5.1); Sodium Level 138 mmol/L (136-145); Troponin-I HS 9 pg/mL (3.0-78.0)
--- NOTE | 2023-02-19 19:54 | CPS ---
x1 Albuterol given to pt. in ER as well
[2023-02-19 20:02] VITALS: BP 150/89; PULSE 95; RESP 18; O2SAT 93
[2023-02-19 20:51] VITALS: O2SAT 95
--- NOTE | 2023-02-19 21:08 | CPS ---
[2056] x1 Albuterol given to pt. prior to discharge. Pt.'s breath sounds are still clear at this time. Breath sounds are clearer after tx. in ER. Pt.'s HR and RR remain in normal range through out this time.
== END 2023-02-19 21:06 | disposition home or self-care (01) ==
PROVIDERS: Emergency Provider Student in an Organized Health Care Education/Training Program; Visit Provider Student in an Organized Health Care Education/Training Program
DX: J20.9 Acute bronchitis, unspecified (principal); F17.210 Nicotine dependence, cigarettes, uncomplicated
CPT/HCPCS: 71045; 80048; 84484; 85025; 87811; 93005; 94640; 94760; 96374; 99283; A4216

== ENCOUNTER 2023-03-08 12:28 | Emergency (ER) | payer SELFPAY ==
[2023-03-08 12:29] VITALS: BP 158/95; PULSE 86; RESP 18; TEMP 36.1; O2SAT 98; BMI 35.9
--- NOTE | 2023-03-08 12:35 | ED.VIS.CHEST ---
HPI History of Present Illness Chief Complaint: Chest Pain [facility] Medical History (Updated 03/08/23 @ 16:[address] Chad Winkler DO) Asthma attack Kidney disease Liver abscess Home Medications albuterol sulfate 90 mcg/actuation aerosol inhaler (Ventolin HFA) 1 - 2 puff inhalation Q4H PRN PRN Wheezing ##1 09/02/22 [Rx Last Taken Unknown] Allergy/AdvReac Type Severity Reaction Status Date / Time amoxicillin Allergy Rash Verified 03/08/23 12:30 Penicillins Allergy Rash Verified 03/08/23 12:30 Surgical History Hx of appendectomy Social History Smoking Status: Current every day smoker tobacco type: cigarettes EXAM Physical Exam Const Vital Signs: 03/08/23 12:29 03/08/23 12:39 03/08/23 13:03 Temperature 96.9 F L Temperature Source Temporal Pulse Rate 86 Respiratory Rate 18 Respiratory Effort Normal Non-Labored Blood Pressure 158/95 H Blood Pressure Mean 116 Pulse Ox 98 Oxygen Delivery Method Room Air Room Air 03/08/23 14:00 03/08/23 15:00 Temperature Temperature Source Pulse Rate 76 83 Respiratory Rate 16 16 Respiratory Effort Blood Pressure 128/77 H 150/104 H Blood Pressure Mean 94 119 Pulse Ox 98 96 Oxygen Delivery Method Room Air Room Air MDM MDM MDM Narrative Medical decision making narrative: HISTORY OF PRESENT ILLNESS: 27-year-old male here with chest pain. The patient states he had 2 days of intermittent chest pain. He states is pleuritic in nature. Exertional in nature. Is not ripping or tearing. Does not radiate to his neck arm or back. Patient denies sudden onset of pain, no tearing sensation, no migratory symptoms, no new numbness, weakness or loss of sensation. Patient denies family history or personal history of Marfan syndrome or Vikas-Danlos. The patient denies recent surgery in the last 4 weeks or immobilization in the last 3 days, denies previous diagnosis of DVT or PE, hemoptysis, unilateral leg swelling or malignancy with treatment the last 6 months. No estrogen use noted. Patient does note bright red blood per rectum which he states started 2 days ago. Denies any blood thinners. He also endorses several episodes of nonbloody nonbilious vomitus over the last 2 days. He denies cough, fever. He denies any shortness of breath. REVIEW OF SYSTEMS: Pertinent positives: Chest pain, nausea vomiting, hematochezia Pertinent negatives: Syncope, shortness of breath, lower extremity edema PHYSICAL EXAM: Nursing triage notes reviewed, Vital signs reviewed Constitutional: please see mdm HENT: MMM Eyes: Pupils equal round and reactive to light, Extraocular muscles intact Neck: No stridor, no JVD, full neck ROM Lungs: Clear to auscultation, No wheezing or rales. No increased work of breathing, no conversational dyspnea, no accessory muscle use, no nasal flaring. No respiratory distress noted Heart: Regular rate and rhythm, No murmurs, No rubs and No gallops, 2+ distal pulses (radial, femoral, posterior tibial) in all extremities Abdomen: Soft, there is no tenderness, rigidity, rebound or guarding, no obvious peritoneal signs, no palpable pulsatile abdominal masses, no auscultated abdominal bruit : No CVAT Extremities: No edema Neuro: No focal neurological deficits, cranial nerves II through XII intact, 5/5 strength in all extremities. Intact sensation to light touch in all extremities, 2+ reflexes bilateral patella tendons. Normal gait. No ataxia. Skin: No rash or lesions noted MEDICAL DECISION MAKING: Chief Complaint: External records reviewed: seen on 02/19/2023 for shortness of breath. Discharged after negative work-up. COVID and flu test was negative at that time MDM Narrative: I considered the following differential diagnosis: ACS, arrhythmia, anemia, electrolyte abnormalities, PE, aortic dissection, GI etiology such as Boerhaave syndrome/Margot-Gama tear The patient was hemodynamically stable, afebrile, nontoxic-appearing. There are no focal cardiopulmonary abnormalities. There is no stigmata of VTE on exam. There is no pulse deficits. I considered aortic dissection as a potential etiology however the patient had no historical factors such as connective tissue disorders, family history. His exam was without pulse deficit, focal neurologic deficit. He did not appear to be in extremis or complaining of active chest pain which makes aortic dissection unlikely. I was also concerned about pulmonary embolism given the pleuritic nature of his chest pain. I obtained a D-dimer to further lower his post test probability. D-dimer was negative. The remainder the patient's labs and images were also negative. No signs of pneumothorax, pneumonia or volume overload. No signs of myocardial ischemia with negative troponin x2. No significant anemia or electrolyte abnormalities. PE less likely given low risk Wells score. Aortic dissection is thought to be less likely given no sudden ripping or tearing pain, migratory pain, palpable pulse inequalities, no focal neurologic deficits concurrent with chest pain. Chance of dissection less than 10/1999. Pericarditis less likely given no pathognomonic EKG changes (no diffuse ST elevations, MS depressions). GI etiology (i.e. Boerhaave syndrome) less likely given no chest or neck crepitus, no vomiting or forced retching. I completed a HEART Score to screen for Major Adverse Cardiac Event (MACE) in this patient. The evidence indicates that the patient is very low risk for MACE and this is consistent with my clinical intuition. The risk of further workup or hospitalization for MACE is likely higher than the risk of the patient having a MACE. It is, therefore, in the patient?s best interest not to do additional emergent testing or to be hospitalized for MACE at this time. Shared Decision-Making No hospitalization indicated I have discussed with the patient my clinical impression and the result of the HEART Score to screen for MACE, as well as the risks of further testing and hospitalization. The HEART Score shows that the risk for MACE is less than 1%. Although the risk of MACE has not been completely eliminated, the risks of further testing or hospitalization for MACE likely exceed any potential benefit, and the patient agrees with not pursuing further emergent evaluation or hospitalization for MACE at this time. Factors affecting care: Tobacco use Social determinants of health: Poor health literacy History obtained from others: None Shared decision making: I will have a discussion with the patient and or visitors regarding risk/benefits of further testing or admission. They will be made aware of of the risk/benefits inherent in this decision they will be given the opportunity to voice understanding. Consults: None Lab Data Attestation: I reviewed the patient's lab results. Lab results narrative: EKG with normal sinus rhythm, left axis deviation, normal intervals, no STEMI CBC without leukocytosis, severe anemia, no thrombocytopenia. D-dimer negative making VTE less likely BMP without evidence of significant electrolyte abnormalities, no anion gap, no acute kidney injury. Troponin is negative, no evidence of myocardial ischemia, delta troponin negative BNP within normal limits suggestive of no volume overload, increased ventricular stretch Labs: Laboratory Results - last 24 hr 03/08/23 03/08/23 03/08/23 13:01 13:01 13:01 WBC 10.6 RBC 4.54 L Hgb 14.8 Hct 44.1 MCV 97.1 H MCH 32.6 H MCHC 33.6 RDW Std Deviation 42.8 RDW Coeff of Maryanne 11.9 Plt Count 205 MPV 10.1 Immature Gran % (Auto) 0.500 Neut % (Auto) 69.1 Lymph % (Auto) 19.4 Briscoe % (Auto) 8.3 Eos % (Auto) 2.1 Baso % (Auto) 0.6 Absolute Neuts (auto) 7.3 Absolute Lymphs (auto) 2.05 Nucleated RBC % 0 D-Dimer Quant (PE/DVT) 0.30 Sodium 143 Potassium 4.2 Chloride 110 H Carbon Dioxide 27.0 Anion Gap 6 BUN 26 H Creatinine 1.66 H Estim Creat Clear Calc 69.02 Est GFR (MDRD) Af Amer 64 Est GFR (MDRD) Non-Af 53 L BUN/Creatinine Ratio 15.7 Glucose 143 H Calcium 8.6 Troponin I High Sens 8 B-Natriuretic Peptide 03/08/23 03/08/23 13:01 15:07 WBC RBC Hgb Hct MCV MCH MCHC RDW Std Deviation RDW Coeff of Maryanne Plt Count MPV Immature Gran % (Auto) Neut % (Auto) Lymph % (Auto) Briscoe % (Auto) Eos % (Auto) Baso % (Auto) Absolute Neuts (auto) Absolute Lymphs (auto) Nucleated RBC % D-Dimer Quant (PE/DVT) Sodium Potassium Chloride Carbon Dioxide Anion Gap BUN Creatinine Estim Creat Clear Calc Est GFR (MDRD) Af Amer Est GFR (MDRD) Non-Af BUN/Creatinine Ratio Glucose Calcium Troponin I High Sens 8 B-Natriuretic Peptide 10.9 Radiography Chest X-Ray - ED: Read by ED Physician Diagnostic Testing: Clinical Impression(s) from Imaging Studies Chest X-Ray 03/08/23 13:05 IMPRESSION: No acute thoracic pathology. Electronically Signed: Zak Redding MD at 13:23 EDT , I have personally reviewed the patient's chest x-ray. Chest x-ray is unremarkable for pulmonary edema, pneumothorax, pneumonia or focal cardiopulmonary abnormality. Discharge Plan Triage Chief Complaint: Chest Pain ED Provider: Chad Winkler Dx/Rx/DC Orders Clinical Impression: Chest pain Instructions: Chest Pain [facility] Prescriptions: No Action albuterol sulfate [Ventolin HFA] 1 INHALER inhaler 1 - 2 puff inhalation Q4H PRN PRN (Reason: Wheezing) Qty: 1 0RF Primary Care Provider: Care Physician,No Primary Referrals: Adams Cartagena MD [Med Staff - Pharmacy Director] - Activity Restrictions/Additional Instructions: Thank you for trusting us with your care today! Please take Tylenol (2 pills, 650 mg), ibuprofen (2 pills, 400 mg) every 6 hours as needed for pain and fever control. Please return to the emergency department if your symptoms change or worsen. Please follow with your primary care physician for further outpatient evaluation and management. Disposition Disposition: Home, Self Care
--- NOTE | 2023-03-08 12:53 | EKG12_ITS ---
Test Reason : CP Blood Pressure : / mmHG Vent. Rate : 076 BPM Atrial Rate : 076 BPM P-R Int : 150 ms QRS Dur : 082 ms QT Int : 346 ms P-R-T Axes : 071 -10 027 degrees QTc Int : 389 ms Normal sinus rhythm with sinus arrhythmia Normal ECG Confirmed by VELASQUEZ MAXWELL, ERNESTINA ([id number]), editor in chief ARIANNE OSBORNE ([id number]) on 03/10/2023 10:47:37 AM Referred By: GRZEGORZ Confirmed By:ERNESTINA ENG MD
[2023-03-08] MEDS: 0.9% Normal Saline 1,000 ML 1000 ML IV (13:01)
[2023-03-08] MEDS: Aspirin 81 MG TAB.CHEW 324 MG PO (13:02)
--- NOTE | 2023-03-08 13:05 | RAD_ITS ---
STUDY: X-RAY CHEST REASON FOR EXAM: Male, 27 years old. Chest pain TECHNIQUE: Frontal view of the chest COMPARISON: 02/20/2020 FINDINGS: The lungs are clear. There are no pleural effusions. There is no pneumothorax. The heart is normal in size. The visualized osseous structures are within normal limits. RAD/Chest 1 View (Portable) IMPRESSION: No acute thoracic pathology. Electronically Signed: Zak Redding MD at 13:23 EDT ,
[2023-03-08 13:17] LABS: Absolute Lymphocyte Count 2.05 X10^3/uL (0.83-4.51); Absolute Neutrophil Count 7.3 X10^3/uL (2.0-7.7); Basophil# 0.06 X10^3/uL; Basophil% 0.6 % (0-1); Eosinophil# 0.22 X10^3/uL; Eosinophils% 2.1 % (0-5); Hematocrit 44.1 % (40-54); Hemoglobin 14.8 g/dL (13.0-16.5); Lymphocyte # 2.05 X10^3/ul (0.83-4.51); Lymphocyte % 19.4 % (19-41); Mean Corp Hgb Conc 33.6 g/dL (32-36); Mean Corpuscular Hgb 32.6 pg (27.0-32.0); Mean Corpuscular Volume 97.1 fL (80-94); Mean Platelet Vol. 10.1 fl (6.2-12.0); Monocyte# 0.88 X10^3/uL; Monocyte% 8.3 % (0-10); NRBC Flagged by Analyzer 0 % (0-5); Neutrophil % 69.1 % (47-70); Platelet Count 205 K/mm3 (150-450); RBC Distribution Width CV 11.9 % (11.6-14.6); RBC Distribution Width SD 42.8 fl (35.1-43.9); Red Blood Count 4.54 M/mm3 (4.6-6.2); White Blood Count 10.6 K/mm3 (4.4-11.0)
[2023-03-08 13:29] LABS: Anion Gap 6 (5-15); BUN 26 mg/dL (7-18); BUN/Creat Ratio 15.7 RATIO (10-20); Calcium,Total 8.6 mg/dL (8.5-10.1); Chloride 110 mmol/L (98-107); Creatinine, Serum 1.66 mg/dL (0.70-1.30); EST Glomerular Filtration Rate 53 mL/min (>60); Est Glom Filt Rate - Afr Amer 64 mL/min (>60); Estimated Creatinine Clearance 69.02 ml/min; Glucose 143 mg/dL (74-106); Potassium 4.2 mmol/L (3.5-5.1); Sodium Level 143 mmol/L (136-145); Troponin-I HS (w/2H Reflex) 8 pg/mL (3.0-78.0)
[2023-03-08 13:42] LABS: BNP,B-Type NATRIURETIC PEPTIDE 10.9 pg/mL (0-100)
[2023-03-08 14:00] VITALS: BP 128/77; PULSE 76; RESP 16; O2SAT 98
[2023-03-08 15:00] VITALS: BP 150/104; PULSE 83; RESP 16; O2SAT 96
[2023-03-08 15:07] LABS: Reflex Troponin-HS? (from REC) Y
[2023-03-08 15:38] LABS: Troponin-I HS 8 pg/mL (3.0-78.0)
[2023-03-08 16:46] VITALS: RESP 16
== END 2023-03-08 16:48 | disposition home or self-care (01) ==
PROVIDERS: Emergency Provider Emergency Medicine; Visit Provider Emergency Medicine
DX: R07.9 Chest pain, unspecified (principal); F17.210 Nicotine dependence, cigarettes, uncomplicated
CPT/HCPCS: 71045; 80048; 83880; 84484; 85025; 85379; 93005; 96360; 99283; J7030; A4216

== ENCOUNTER 2023-05-25 10:41 | Emergency (ER) | payer SELFPAY ==
[2023-05-25 10:43] VITALS: BP 151/101; PULSE 76; RESP 14; TEMP 36.6; O2SAT 97; BMI 41.4
--- NOTE | 2023-05-25 11:35 | EDS_ITS ---
HPI History of Present Illness Chief Complaint: Lower Extremity Injury Detail of Chief Complaint: Left second toe pain and swelling Informant: patient Narrative Narrative: Patient presents to the emergency department complaint of pain in his left second toe. Patient states that he was moving some things around in the lobby at work yesterday but does not recall an injury at any point. Patient went home and took his shoe off and noted that his left second toe was swollen and discolored and a purpleish color. Really does not hurt unless he tries to stand on it. [facility] Medical History (Updated 05/25/23 @ 12:[address] Lakshmi Hayden, DO) Asthma attack Kidney disease Liver abscess Home Medications albuterol sulfate 90 mcg/actuation aerosol inhaler (Ventolin HFA) 1 - 2 puff inhalation Q4H PRN PRN Wheezing ##1 09/02/22 [Rx Last Taken Unknown] Allergy/AdvReac Type Severity Reaction Status Date / Time amoxicillin Allergy Rash Verified 05/25/23 10:42 Penicillins Allergy Rash Verified 05/25/23 10:42 Surgical History Hx of appendectomy Social History Smoking Status: Current every day smoker tobacco type: cigarettes ROS ROS ED Review of Systems ROS Unobtainable: other Constitutional Constitutional ED: Reports lethargy; Denies chills, fever(s), sweats or weight loss Eyes Eyes: Denies blurry vision, change in vision or diplopia ENT ENT ED: Denies rhinorrhea or sore throat Cardiovascular Cardiovascular: Denies chest pain, orthopnea or racing heartbeat Respiratory/Chest Respiratory/Chest: Denies cough, dyspnea, dyspnea on exertion, orthopnea or sputum Gastrointestinal Gastrointestinal: Denies abdominal pain, diarrhea, nausea or vomiting Genitourinary Genitourinary ED: Denies dysuria, hematuria or urinary frequency Musculoskeletal Musculoskeletal: Reports other Details: Left second toe and foot pain ; Denies arthralgias, back pain, myalgias or neck pain Integumentary Denies abscess, Abrasions or rash Neurologic Neurologic: Denies headache(s) or weakness Psychiatric Psychiatric: Denies anxiety, depression or suicidal thoughts Endocrine Endocrinology: Denies polydipsia, polyphagia or polyuria Hematologic/Lymphatic Hematologic/Lymphatic: Denies easy bleeding, easy bruising or lymphadenopathy Allergic/Immunologic Allergic/Immunologic ED: Denies mouth swelling, tongue swelling or urticaria EXAM Physical Exam Const Vital Signs: 05/25/23 10:43 Temperature 98 F Temperature Source Temporal Pulse Rate 76 Respiratory Rate 14 Blood Pressure 151/101 H Blood Pressure Mean 117 Pulse Ox 97 Oxygen Delivery Method Room Air Positive well nourished and well developed General Appearance ED: well developed and NAD HEENT Reports TM's clear and moist mucous membranes normocephalic and atraumatic; Negative for trauma or tenderness Tympanic Membrane ED: Yes TM's clear Eyes PERRL and EOMs intact bilaterally General Eye ED: Negative for pale conjunctiva or scleral icterus Neck no lymphadenopathy, supple and no JVD General: Negative for tenderness Chest Wall inspection of chest normal and palpation of chest normal Chest: Negative for tenderness Resp normal respiratory effort and clear to auscultation bilaterally Effort and Inspection: Negative for respiratory distress or pain with movement Auscultation: Negative for rhonchi, wheezes or diminished lung sounds Cardio regular rate, regular rhythm, S1 normal heart sound, S2 normal heart sound and no murmurs Peripheral Pulses: pulses 2+ throughout GI normal to inspection, nondistended, normoactive bowel sounds, soft to palpation, non-tender, non-distended and no masses Back/Spine no CVA tenderness and no thoracic nor lumbar tenderness Extremity Extremity Narrative: Left foot-second toe-patient has some diffuse soft tissue swelling of the toe with diffuse tenderness on palpation. There is no ecchymosis or bruising noted. There are no cellulitic changes. No evidence of ingrown toenail. Normal cap refill. Normal sensation to light touch. General Extremety ED: Negative for edema General Extremity: Negative for edema Neuro oriented x3, CN's II-XII intact bilaterally, no sensory deficits noted and gait normal Sensorium / Orientation: awake, alert, oriented to person, oriented to place and oriented to time Motor Exam: strength 5/5 throughout and strength abnormal Psych mental status grossly normal Skin no rashes or lesions noted and no wounds MDM MDM MDM Narrative Medical decision making narrative: With pain in left second toe with no known injury. On x-rays no fractures noted. There is no evidence of cellulitis or infection. There is no ingrown nail. This point suspect possibly sprain. Patient does not want crutches. He is advised to use ibuprofen or Tylenol for discomfort. He is to follow-up with his primary care physician within next 5 to 7 days. Radiography Diagnostic Testing: Clinical Impression(s) from Imaging Studies Foot X-Ray 05/25/23 11:40 IMPRESSION: Normal x-ray examination of the foot. Electronically Signed: Fawad Lopez MD at 11:58 EDT , Three-view x-rays of the left foot obtained interpreted by myself as no evidence of fracture or dislocation. Radiology in agreement. Discharge Plan Triage Chief Complaint: Lower Extremity Injury ED Provider: Lakshmi Hayden Dx/Rx/DC Orders Clinical Impression: Foot pain, left Instructions: ED Pain, Acute, Uncertain Cause Prescriptions: No Action albuterol sulfate [Ventolin HFA] 1 INHALER inhaler 1 - 2 puff inhalation Q4H PRN PRN (Reason: Wheezing) Qty: 1 0RF Primary Care Provider: Care Physician,No Primary Referrals: Kenn Gonzalez DPM [Med Staff - Active Staff] - 5-7 Days Care Physician,No Primary [Primary Care Provider] - Disposition Disposition: Home, Self Care
--- NOTE | 2023-05-25 11:40 | RAD_ITS ---
STUDY: X-RAY - LEFT FOOT CLINICAL: Male, 27 years old. Left second toe pain. No known injury. TECHNIQUE: 3 view(s) of the foot. COMPARISON: None. FINDINGS: Normal talus, calcaneus, and tarsal bones. Normal visualized subtalar, talonavicular, calcaneocuboid, tarsal and tarsometatarsal articulations. Normal metatarsi. Normal metatarsophalangeal joint of the great toe. Normal tibial and fibular sesamoid bones. Normal interphalangeal joint of the great toe. Normal phalanges of the great toe. Normal second through fifth metatarsophalangeal joints. Normal interphalangeal joints and phalanges of the lesser toes. The soft tissue structures are unremarkable. RAD/Foot min 3 Views IMPRESSION: Normal x-ray examination of the foot. Electronically Signed: Fawad Lopez MD at 11:58 EDT ,
== END 2023-05-25 12:35 | disposition home or self-care (01) ==
PROVIDERS: Emergency Provider Emergency Medicine; Visit Provider Emergency Medicine
DX: M79.672 Pain in left foot (principal); F17.210 Nicotine dependence, cigarettes, uncomplicated
CPT/HCPCS: 73630; 99282

== ENCOUNTER 2023-05-29 08:19 | Emergency (ER) | payer SELFPAY ==
[2023-05-29 08:23] VITALS: BP 118/76; PULSE 78; RESP 16; TEMP 36.6; O2SAT 98
[2023-05-29] MEDS: Acetaminophen 500 MG Tablet 1000 MG PO (09:06)
[2023-05-29] MEDS: Diphth,Pertuss(Acell),Tet Vac 0.5 ML Vial IM (09:07)
[2023-05-29] MEDS: Lidocaine/Epi/Tetracaine 50 ML 1 APPLIC TOPICAL (09:30)
--- NOTE | 2023-05-29 10:25 | EX.ED.GENINJ ---
HPI History of Present Illness Chief Complaint: Laceration Narrative Narrative: 27-year-old male with laceration to the right lateral thigh. He states he cut it on smoking apparatus. He did not give a much more information. Last tetanus is unknown. No active bleeding. Minor pain. No numbness or tingling. PFSH PFS Medical History Asthma attack Kidney disease Liver abscess Home Medications albuterol sulfate 90 mcg/actuation aerosol inhaler (Ventolin HFA) 1 - 2 puff inhalation Q4H PRN PRN Wheezing ##1 09/02/22 [Rx Last Taken Unknown] Allergy/AdvReac Type Severity Reaction Status Date / Time amoxicillin Allergy Rash Verified 05/29/23 08:23 Penicillins Allergy Rash Verified 05/29/23 08:23 Surgical History Hx of appendectomy Social History Smoking Status: Current every day smoker tobacco type: cigarettes ROS ROS ED Constitutional Constitutional ED: Denies chills, fever(s) or sweats Eyes Eyes: Denies blurry vision or change in vision ENT ENT ED: Denies ear pain or sore throat Cardiovascular Cardiovascular: Denies chest pain, palpitations or racing heartbeat Respiratory/Chest Respiratory/Chest: Denies cough, dyspnea or sputum Gastrointestinal Gastrointestinal: Denies abdominal pain, constipation, diarrhea, nausea or vomiting Genitourinary Genitourinary ED: Denies dysuria, hematuria or urinary frequency Musculoskeletal Musculoskeletal: Denies arthralgias, myalgias or neck pain Integumentary Reports other Details: Laceration right thigh ; Denies abscess, Abrasions or rash Neurologic Neurologic: Denies headache(s), paresthesias or weakness Psychiatric Psychiatric: Denies anxiety, depression, suicidal ideation or suicidal thoughts Endocrine Endocrinology: Denies polydipsia or polyuria EXAM Physical Exam Const Vital Signs: 05/29/23 08:23 Temperature 97.8 F Temperature Source Temporal Pulse Rate 78 Respiratory Rate 16 Blood Pressure 118/76 Blood Pressure Mean 90 Pulse Ox 98 Oxygen Delivery Method Room Air Positive well nourished HEENT atraumatic Eyes PERRL and EOMs intact bilaterally Resp normal respiratory effort Cardio regular rhythm Rate: regular rate Neuro oriented x3 and CN's II-XII intact bilaterally Psych mental status grossly normal Skin Skin Narrative: 4 cm ellipsoid shaped laceration on the right lateral thigh with a horizontal lie. PROC Procedures Lacerations right thigh: Length: 1.6 in Depth: Skin Shape: Ellipsoid Prep: Sterile Conditions and Shure-Clens Laceration repair: Irrigated, Lidocaine with epi and Local Irrigated (ml): 250 Number of Sutures/Linden: 8 Suture Information: Ethilon, Simple and - (3-0) MDM MDM MDM Narrative Medical decision making narrative: Patient with laceration to the right thigh. Lidocaine was applied. Patient given a gram of Tylenol. Patient was cleaned and sutured. Please see procedure note. Patient tolerated procedure well. Tetanus was updated today. Patient counseled follow-up in 2 weeks for suture removal. Wound care instructions were given. Impression: 1. 4 cm right leg laceration Discharge Plan Triage Chief Complaint: Laceration ED Provider: Ryley Ann Dx/Rx/DC Orders Instructions: ED Laceration Extremity, ED Wound Care Prescriptions: No Action albuterol sulfate [Ventolin HFA] 1 INHALER inhaler 1 - 2 puff inhalation Q4H PRN PRN (Reason: Wheezing) Qty: 1 0RF Primary Care Provider: Care Physician,No Primary Referrals: Tha Lopez MD [Med Staff - Marketing Development Manager] - 10-14 Days suture removal Care Physician,No Primary [Primary Care Provider] - Disposition Disposition: Home, Self Care Discharge Date/Time: 05/29/23 10:40
[2023-05-29 10:37] VITALS: BMI 31.5
== END 2023-05-29 10:40 | disposition home or self-care (01) ==
PROVIDERS: Emergency Provider Student in an Organized Health Care Education/Training Program; Visit Provider Student in an Organized Health Care Education/Training Program
DX: S71.111A Laceration without foreign body, right thigh, initial encounter (principal); W26.8XXA Contact with other sharp object(s), not elsewhere classified, initial encounter; F17.210 Nicotine dependence, cigarettes, uncomplicated
CPT/HCPCS: 12002; 90715; 99283

== ENCOUNTER 2023-10-12 19:17 | Emergency (ER) | payer SELFPAY ==
[2023-10-12 19:19] VITALS: BP 166/103; PULSE 89; RESP 20; TEMP 36.2; O2SAT 96; BMI 43.4
--- NOTE | 2023-10-12 19:46 | EX.ED.DYSGE1 ---
HPI History of Present Illness Chief Complaint: Nausea/Vomiting Detail of Chief Complaint: Nausea and vomiting 2 days ago and today and respiratory symptoms Informant: patient Onset/Context/Timing Onset: Days (Onset of illness 3 days ago.) Context: Sudden Onset Timing: Intermittent and Waxes and wanes Quality: Initially GI then respiratory now both Location: Respiratory and GI Current Severity: Mild Maximum Severity: Moderate Worsened by: Dyspnea on exertion Relieved by: Nothing Associated Symptoms Associated Symptoms: Diarrhea today Narrative Narrative: Patient is a 27-year-old who was exposed to person with COVID and relative with RSV. His symptoms started 3 days ago with nausea and vomiting initially. He then developed upper respiratory symptoms with rhinorrhea, congestion sore throat and cough. Cough is productive of colored sputum. He does endorse wheezing. He is presently a smoker of 1.5 packs/day. He now complains of diarrhea. He denies headache, visual, ocular auditory symptoms. He denies ear pain or drainage from his ears. He denies neck pain or neck stiffness. He denies light sensitivity. He denies chest pain. He denies dyspnea on exertion. He does complain of some vague epigastric discomfort. He reports tarry appearing emesis today. He denies black or maroon-colored stool. He denies history of hiatal hernia, reflux or peptic ulcer disease. Prior similar symptoms: No Recent Illness/Hospitalization: No [facility] Medical History Asthma attack Kidney disease Liver abscess Home Medications prednisone 20 mg tablet 60 mg (3 x 20 mg) PO DAILY #12 TABLETS 10/12/23 [Rx Last Taken Unknown] Allergy/AdvReac Type Severity Reaction Status Date / Time amoxicillin Allergy Hives Verified 10/12/23 19:18 Penicillins Allergy Hives Verified 10/12/23 19:18 Surgical History Hx of appendectomy Social History household members: spouse and children housing: house current occupational status: employed Smoking Status: Current every day smoker tobacco type: cigarettes ROS ROS ED Constitutional Constitutional ED: Reports fever(s) and subjective; Denies chills or sweats Eyes Eyes: Denies blurry vision, change in vision or diplopia ENT ENT ED: Reports rhinorrhea; Denies ear pain Cardiovascular Cardiovascular: Denies chest pain, orthopnea, palpitations, paroxysmal nocturnal dyspnea or racing heartbeat Respiratory/Chest Respiratory/Chest: Reports cough, dyspnea, dyspnea on exertion and sputum; Denies orthopnea or paroxysmal nocturnal dyspnea Gastrointestinal Gastrointestinal: Reports abdominal pain, diarrhea, nausea and vomiting; Denies constipation or melena Genitourinary Genitourinary ED: Denies dysuria, hematuria or urinary frequency Musculoskeletal Musculoskeletal: Reports myalgias; Denies arthralgias, back pain or neck pain Integumentary Denies abscess or rash Neurologic Neurologic: Reports headache(s); Denies paresthesias or weakness Psychiatric Psychiatric: Denies anxiety Endocrine Endocrinology: Denies cold intolerance or heat intolerance Hematologic/Lymphatic Hematologic/Lymphatic: Reports systems reviewed and no addt'l complaints, except as documented EXAM Physical Exam Const Vital Signs: 10/12/23 19:19 10/12/23 20:13 Temperature 97.2 F L Temperature Source Temporal Pulse Rate 89 89 Respiratory Rate 20 H 20 H Respiratory Pattern Normal Blood Pressure 166/103 H Blood Pressure Mean 124 Pulse Ox 96 Oxygen Delivery Method Room Air Positive well nourished, well developed and obese Constitutional Narrative: Patient does not appear well. Vital signs remarkable for an elevated blood pressure. General Appearance ED: well developed, NAD and pallor; Negative for cyanotic or diaphoretic Nutritional Appearance: obese HEENT Reports dry mucous membranes HEENT Narrative: Head is atraumatic and normocephalic. Ears are normal. TMs are normal. Nares patent with clear drainage. Posterior pharynx erythema or exudate. Uvula is midline. Mouth ED: Yes dry mucous membranes Mouth: dry mucous membranes Eyes PERRL and EOMs intact bilaterally General Eye ED: Negative for pale conjunctiva or scleral icterus Neck no lymphadenopathy, supple and no JVD Neck Narrative: Trachea is midline. There is no stridor. Chest Wall inspection of chest normal and palpation of chest normal Resp normal respiratory effort and No clear to auscultation bilaterally Auscultation: rales left base and wheezes expiratory wheezes, scattered wheezes (Left greater than right.) and throughout Cardio regular rate, regular rhythm, S1 normal heart sound, S2 normal heart sound and no murmurs GI normal to inspection, nondistended, normoactive bowel sounds, non-distended and no masses; Negative for non-tender or hepatosplenomegaly Palpation: soft and tender epigastric Back/Spine no CVA tenderness Extremity normal to inspection General Extremety ED: Negative for edema or tenderness General Extremity: Negative for edema Neuro oriented x3, CN's II-XII intact bilaterally and no sensory deficits noted Sensorium / Orientation: alert Psych mental status grossly normal Skin no rashes or lesions noted, no wounds and skin turgor normal General Skin Exam: pallor; Negative for jaundice MDM MDM MDM Narrative Medical decision making narrative: Patient has symptoms consistent with viral infection. Since he has been exposed to COVID we will test for COVID. Because he is wheezing with productive cough and tachypneic will obtain chest x-ray to assess for pneumonia. He has history of pneumonia on multiple occasions. Since he has history of asthma and is wheezing albuterol was ordered. CBC to assess white count differential. Basic metabolic panel to assess renal function and assess for endorgan dysfunction. History & Record Review Additional record(s) reviewed:: Prior ED visit (Numerous visits for bronchitis, viral illness, asthma etc.) and Prior labs Lab Data Attestation: I reviewed the patient's lab results. Lab results narrative: White count is elevated with mild shift. There is no bandemia. Basic metabolic panel is remarkable for an elevated creatinine of 1.84 which is slightly above baseline for patient. Estimated GFR is 47. BUN to creatinine ratio is approximately 12-1. Labs: Laboratory Results - last 24 hr 10/12/23 20:04 WBC 14.2 H RBC 4.94 Hgb 15.7 Hct 46.6 MCV 94.3 H MCH 31.8 MCHC 33.7 RDW Std Deviation 39.5 RDW Coeff of Maryanne 11.4 L Plt Count 248 MPV 9.7 Immature Gran % (Auto) 0.600 Neut % (Auto) 77.9 H Lymph % (Auto) 14.1 L Traill % (Auto) 5.9 Eos % (Auto) 1.0 Baso % (Auto) 0.5 Absolute Neuts (auto) 11.1 H Absolute Lymphs (auto) 1.99 Nucleated RBC % 0 Sodium 140 Potassium 3.8 Chloride 109 H Carbon Dioxide 26.0 Anion Gap 5 BUN 23 H Creatinine 1.84 H Estim Creat Clear Calc 62.27 Est GFR (MDRD) Af Amer 57 L Est GFR (MDRD) Non-Af 47 L BUN/Creatinine Ratio 12.5 Glucose 99 Calcium 9.3 Radiography Chest X-Ray - ED: 2 View and Read by ED Physician (2 view chest x-rays independent reviewed interpreted by me at 2021 as negative for any acute process. Cardiac silhouette and size normal. Lung parenchyma normal. There is no effusion. Perihilar regions normal. Osseous structures are unremarkable.) Diagnostic Testing: Clinical Impression(s) from Imaging Studies Chest X-Ray 10/12/23 20:20 IMPRESSION: No radiographic evidence of acute cardiopulmonary disease. Electronically Signed: Honorio Ponce DO at 20:31 EST Reading Location ID and State: [facility] / [place] Tel [phone], Service support , Treatment and Re-Evaluation :: Patient had traumatic injury with epistaxis due to placement of NG. There is no active bleeding or coffee-ground emesis noted. NG was pulled. Comments:: Patient's wheezing improved with aerosols. Patient still has wheezing after treatment. Will discharge with burst of prednisone. He was instructed use his inhaler every 2-4 hours while awake for the next 3 to 5 days. He also was instructed follow-up with [facility] in 1 to 2 weeks to have his blood pressure rechecked. Discharge Plan Triage Chief Complaint: Nausea/Vomiting Other Complaint: Dizziness ED Provider: Valeriy Carlton Dx/Rx/DC Orders Clinical Impression: Upper respiratory infection with cough and congestion, Acute bronchospasm, Elevated blood-pressure reading without diagnosis of hypertension, Tobacco use Instructions: ED Hypertension, To Be Confirmed, ED URI, Viral W/ Wheezing (Adult) Prescriptions: New prednisone 20 mg tablet 60 mg PO DAILY Qty: 12 0RF Primary Care Provider: Care Physician,No Primary Referrals: Claudia Quan [Non-Staff] - 1 Week if not improving Care Physician,No Primary [Primary Care Provider] - Activity Restrictions/Additional Instructions: 1. 2 puffs of inhaler every 2-4 hours while awake for the next 3 to 5 days and every 4-6 hours for shortness of breath or wheezing 2. Because you smoke you may have a cough up to 1 month. 3. Your blood pressure readings are elevated. You should follow-up at the [facility] for recheck in 1 to 2 weeks Disposition Disposition: Home, Self Care
[2023-10-12 20:11] LABS: Absolute Lymphocyte Count 1.99 X10^3/uL (0.83-4.51); Absolute Neutrophil Count 11.1 X10^3/uL (2.0-7.7); Basophil# 0.07 X10^3/uL; Basophil% 0.5 % (0-1); Eosinophil# 0.14 X10^3/uL; Hematocrit 46.6 % (40-54); Hemoglobin 15.7 g/dL (13.0-16.5); Lymphocyte # 1.99 X10^3/ul (0.83-4.51); Lymphocyte % 14.1 % (19-41); Mean Corp Hgb Conc 33.7 g/dL (32-36); Mean Corpuscular Hgb 31.8 pg (27.0-32.0); Mean Corpuscular Volume 94.3 fL (80-94); Mean Platelet Vol. 9.7 fl (6.2-12.0); Monocyte# 0.83 X10^3/uL; Monocyte% 5.9 % (0-10); NRBC Flagged by Analyzer 0 % (0-5); Neutrophil # 11.05 X10^3/uL (2.7-7.7); Neutrophil % 77.9 % (47-70); Platelet Count 248 K/mm3 (150-450); RBC Distribution Width CV 11.4 % (11.6-14.6); RBC Distribution Width SD 39.5 fl (35.1-43.9); Red Blood Count 4.94 M/mm3 (4.6-6.2); White Blood Count 14.2 K/mm3 (4.4-11.0)
[2023-10-12 20:13] VITALS: PULSE 89; RESP 20
[2023-10-12] MEDS: Albuterol 2.5 MG/3 ML VIAL.NEB. INHALATION (20:13)
--- NOTE | 2023-10-12 20:20 | RAD_ITS ---
INDICATION: Cough, wheezing EXAMINATION/TECHNIQUE: X-RAY - XR Chest 2 Views COMPARISON: March 08, 2023 FINDINGS: LINES/DEVICES: None. LUNGS: No consolidation, edema or effusion. No pneumothorax. MEDIASTINUM AND CARDIOVASCULAR STRUCTURES: Cardiac silhouette not enlarged. Central airways and mediastinal contour are unremarkable. BONES AND SOFT TISSUES: Unremarkable. RAD/Chest PA and Lateral IMPRESSION: No radiographic evidence of acute cardiopulmonary disease. Electronically Signed: Honorio Ponce DO at 20:31 EST ,
[2023-10-12 20:26] LABS: Anion Gap 5 (5-15); BUN 23 mg/dL (7-18); BUN/Creat Ratio 12.5 RATIO (10-20); Calcium,Total 9.3 mg/dL (8.5-10.1); Chloride 109 mmol/L (98-107); Creatinine, Serum 1.84 mg/dL (0.70-1.30); EST Glomerular Filtration Rate 47 mL/min (>60); Est Glom Filt Rate - Afr Amer 57 mL/min (>60); Estimated Creatinine Clearance 62.27 ml/min; Glucose 99 mg/dL (74-106); Potassium 3.8 mmol/L (3.5-5.1); Sodium Level 140 mmol/L (136-145)
[2023-10-12] MEDS: predniSONE 20 MG Tablet 60 MG PO (21:45)
[2023-10-12 21:48] VITALS: RESP 14
== END 2023-10-12 21:49 | disposition home or self-care (01) ==
PROVIDERS: Emergency Provider Emergency Medicine; Visit Provider Emergency Medicine
DX: J06.9 Acute upper respiratory infection, unspecified (principal); R05.9 Cough, unspecified; R09.81 Nasal congestion; J98.01 Acute bronchospasm; R03.0 Elevated blood-pressure reading, without diagnosis of hypertension; F17.210 Nicotine dependence, cigarettes, uncomplicated; E66.9 Obesity, unspecified
CPT/HCPCS: 71046; 80048; 85025; 87428; 94640; 99285; A4216

== ENCOUNTER 2024-12-06 02:37 | Emergency (ER) | payer SELFPAY ==
[2024-12-06 02:38] VITALS: BP 175/118; PULSE 80; RESP 16; TEMP 37.1; O2SAT 97
[2024-12-06 02:42] VITALS: BP 175/118; PULSE 80; RESP 16; TEMP 37.1; O2SAT 96
[2024-12-06] MEDS: Ondansetron ODT 4 MG Tablet PO (02:52)
--- NOTE | 2024-12-06 02:54 | EX.ED.DYSGE1 ---
HPI History of Present Illness Chief Complaint: General Illness Narrative Narrative: Patient is a 29-year-old male with past medical history of anxiety, hypertension but states that he cannot afford his blood pressure medication therefore he has not been taking that he chose to take his mental health medications instead who presents to the emergency department chief complaint nausea vomiting diarrhea diffuse bodyaches. Patient states that his son and recently tested positive for influenza A also noted that last night they went to dinner to [employer] and felt that the chicken was undercooked but states that he ate a few bites of this before realizing and does not know if he has food poisoning. [facility] Medical History Kidney disease Liver abscess Asthma attack Home Medications ?Medication ?Instructions ?Recorded ?Last Taken ?Type prednisone 20 mg tablet 60 mg (3 x 20 mg) PO DAILY #12 10/12/23 Unknown Rx TABLETS dicyclomine 20 mg tablet 20 mg PO TID #20 tabs 12/06/24 Unknown Rx ondansetron 4 mg disintegrating 4 mg PO Q6H PRN nausea and 12/06/24 Unknown Rx tablet vomiting #20 tabs Allergy/AdvReac Type Severity Reaction Status Date / Time amoxicillin Allergy Hives Verified 12/06/24 02:39 Penicillins Allergy Hives Verified 12/06/24 02:39 Surgical History Hx of appendectomy Social History household members: spouse and children housing: house current occupational status: employed Smoking Status: Current every day smoker tobacco type: cigarettes ROS ROS ED ROS Narrative Constitutional: Complains of chills and diffuse bodyaches as noted above Cardiovascular: Denies chest pain or palpitations Respiratory: Denies coughing wheezing shortness of breath Abdomen: Complains of nausea vomiting diarrhea as noted above : Denies any urinary symptoms Neurological: Denies numbness, weakness, tingling Musculoskeletal: Denies back pain Skin: Denies rashes or lesions EXAM Physical Exam Narrative Exam Narrative: General: Patient was lying in bed rest comfortably did not appear to be in acute distress Head: Atraumatic, normocephalic Eyes: PERRL bilaterally, EOMI bilaterally, no conjunctival injection noted Neck: Soft, supple, trachea midline Cardiovascular: Regular rate and rhythm no murmurs gallops rubs noted Respiratory: Clear to auscultation bilaterally Abdomen: Soft, nondistended, no tenderness palpation Extremities: +5/5 strength noted in the bilateral upper and lower extremities, no pedal edema on exam radial pulses +2/4 in the bilateral extremities Neurological: Patient follow commands knew that he was at [facility] year is 2024 Skin: Warm, dry, intact Const Vital Signs: 12/06/24 02:38 12/06/24 02:42 12/06/24 02:56 Temperature 98.7 F 98.7 F Temperature Source Oral Oral Pulse Rate 80 80 Respiratory Rate 16 16 Respiratory Effort Normal Respiratory Pattern Normal Blood Pressure 175/118 H 175/118 H Blood Pressure Mean 137 137 Pulse Ox 97 96 Oxygen Delivery Method Room Air Room Air MDM MDM MDM Narrative Medical decision making narrative: Patient is a 29-year-old male who presented to the emergency department with a chief complaint of nausea vomiting diarrhea concern for influenza A versus food poisoning. On the differential diagnose includes but limited to food poisoning, influenza A, viral gastroenteritis. Patient be given Zofran and Bentyl. He will be reevaluated. Patient tested negative for COVID flu and RSV. Repeat abdominal exam at 4:18 AM patient has no tenderness palpation. He states that he feels much improved and wanted to go home at this point time. Patient be given prescriptions for Bentyl and Zofran he is advised to start with a bland diet advance as tolerated. He is vies follow-up primary care physician outpatient setting return for worsening symptoms or other concerns. He is agreeable this plan all question concerns answered he is discharged home in stable condition. Patient is requesting work note which she will be provided. Discharge Plan Triage Chief Complaint: General Illness Other Complaint: Abd Pain ED Provider: Chandana Huang Dx/Rx/DC Orders Clinical Impression: Nausea & vomiting Prescriptions: New ondansetron 4 mg tablet,disintegrating 4 mg PO Q6H PRN (Reason: nausea and vomiting) Qty: 20 0RF dicyclomine 20 mg tablet 20 mg PO TID Qty: 20 0RF No Action prednisone 20 mg tablet 60 mg PO DAILY Qty: 12 0RF Stand Alone Forms: ED Work / School Excuse Primary Care Provider: Care Physician,No Primary Referrals: Care Physician,No Primary [Primary Care Provider] - Ignacia Morales [facility], POLYSOMNOGRAPHIC TECHNOLOGIST-C [[facility]] - Activity Restrictions/Additional Instructions: Use prescriptions as prescribed. You tested negative for COVID flu and RSV. Start with bland diet and advance as tolerated. Follow-up with a primary care physician that you referred to. Return with worsening symptoms or concerns Print Language: Kiswahili Disposition Disposition: Home, Self Care
[2024-12-06] MEDS: Dicyclomine 10 MG Capsule 20 MG PO (03:00)
[2024-12-06 04:31] VITALS: BP 181/108; PULSE 79; RESP 18; TEMP 37.1; O2SAT 97
== END 2024-12-06 04:38 | disposition home or self-care (01) ==
PROVIDERS: Emergency Provider Emergency Medicine; Visit Provider Emergency Medicine
DX: R11.2 Nausea with vomiting, unspecified (principal); F17.210 Nicotine dependence, cigarettes, uncomplicated
CPT/HCPCS: 87631; 99284

== ENCOUNTER 2024-12-22 13:21 | Emergency (ER) | payer SELFPAY ==
[2024-12-22 13:23] VITALS: BP 155/102; PULSE 89; RESP 15; TEMP 36.8; O2SAT 99
--- NOTE | 2024-12-22 13:30 | RAD_ITS ---
PROCEDURE: FOOT MIN 3 VIEWS REASON FOR EXAM: Pain. History of gout. TECHNIQUE: Three views of the left foot were obtained. COMPARISON: Comparison is made with prior study dated May 25, 2023 FINDINGS: LEFT FOOT: No visible fracture. No suspicious bone lesion. Normal alignment. Soft tissues are unremarkable. RAD/Foot min 3 Views IMPRESSION: Unremarkable examination. Reading Location: [id number]
--- NOTE | 2024-12-22 14:17 | ED.VIS.LOWEX ---
HPI History of Present Illness Chief Complaint: Lower Extremity Injury Narrative Narrative: 29-year-old male presents with pain in his left great toe and foot with mild swelling. He does have history of gout, but states he usually gets it in the right foot. Over the last few days, he has noticed pain and swelling at the first MTP joint and pain across the top of his left foot. No fevers or chills, denies recent injury. At times he has leftover prednisone for his gout and has taken 1 tablet daily over the last 2 days, but has not resolved his symptoms. No trauma to the area. Patient states that he has pain with weightbearing and walking, and cannot even put a sheet on his foot when he sleeps. [facility] Medical History Kidney disease Liver abscess Asthma attack Home Medications ?Medication ?Instructions ?Recorded ?Last Taken ?Type prednisone 20 mg tablet 60 mg (3 x 20 mg) PO DAILY #12 10/12/23 Unknown Rx TABLETS dicyclomine 20 mg tablet 20 mg PO TID #20 tabs 12/06/24 Unknown Rx ondansetron 4 mg disintegrating 4 mg PO Q6H PRN nausea and 12/06/24 Unknown Rx tablet vomiting #20 tabs prednisone 20 mg tablet 40 mg (2 x 20 mg) PO DAILY 7 days 12/22/24 Unknown Rx #14 tabs Allergy/AdvReac Type Severity Reaction Status Date / Time amoxicillin Allergy Hives Verified 12/06/24 02:39 Penicillins Allergy Hives Verified 12/06/24 02:39 Surgical History Hx of appendectomy Social History household members: spouse and children housing: house current occupational status: employed Smoking Status: Current every day smoker tobacco type: cigarettes ROS ROS ED ROS Narrative Review of systems positive for left great toe MTP joint pain and swelling with mild redness. Denies any fevers or chills, positive swelling to his left foot with pain across the dorsum. No recent injury. EXAM Physical Exam Narrative Exam Narrative: Afebrile. Vital signs noted. Nontoxic-appearing. Cardiovascular examination reveals a regular rate and rhythm. Lungs clear to auscultation bilaterally. Abdomen soft and nontender with positive bowel sounds. Inspection of the left foot does reveal mild swelling with erythema at the first MTP joint. No crepitance over foot. No pain in ankles and above. Const Vital Signs: 12/22/24 13:23 Temperature 98.2 F Temperature Source Temporal Pulse Rate 89 Respiratory Rate 15 Blood Pressure 155/102 H Blood Pressure Mean 119 Pulse Ox 99 Oxygen Delivery Method Room Air MDM MDM MDM Narrative Medical decision making narrative: Differential diagnosis includes but not limited to cellulitis versus podagra/gouty arthritis exacerbation versus foot sprain versus fracture. I reviewed the patient's prior ED visits and he has been treated with prednisone for gout. X-rays were obtained per protocol of the left foot and interpreted by myself independently as no evidence of acute fracture, no gas in the tissue. No significant soft tissue swelling. I do not feel that he has a necrotizing fasciitis. I reviewed the radiology report which confirms my independent interpretation as well. At this point in time, I wrote him a prescription for continued burst of prednisone over the next 7 days. Additionally, he was given a dose of colchicine here 1.2 mg orally. I feel he can be discharged to follow-up with the [facility] clinic as he states he is currently homeless and does not have health insurance. Return instructions to the emergency department were reviewed. Disposition is discharged home in stable condition. History & Record Review Discussion w/independent historian: Patient Additional record(s) reviewed:: Prior ED visit Radiography Diagnostic Testing: Clinical Impression(s) from Imaging Studies Foot X-Ray 12/22/24 13:30 IMPRESSION: Unremarkable examination. Reading Location: [id number] Discharge Plan Triage Chief Complaint: Lower Extremity Injury ED Provider: Ryan Crump Dx/Rx/DC Orders Clinical Impression: Foot pain, left, Podagra Instructions: ED Foot Sprain, ED Gout, ED Gout Diet Prescriptions: New prednisone 20 mg tablet 40 mg PO DAILY 7 Days Qty: 14 0RF No Action prednisone 20 mg tablet 60 mg PO DAILY Qty: 12 0RF ondansetron 4 mg tablet,disintegrating 4 mg PO Q6H PRN (Reason: nausea and vomiting) Qty: 20 0RF dicyclomine 20 mg tablet 20 mg PO TID Qty: 20 0RF Primary Care Provider: Care Physician,No Primary Referrals: Care Physician,No Primary [Primary Care Provider] - Demetrio Henderson, ADMISSION SPECIALIST-C [facility] - 1 Week if not improving Activity Restrictions/Additional Instructions: Take prednisone as directed for the next 7 days. Follow-up with a primary care provider. Print Language: Guyanese Disposition Disposition: Home, Self Care
[2024-12-22] MEDS: Colchicine 0.6 MG TABLET 1.2 MG PO (14:43)
--- NOTE | 2024-12-22 15:31 | CM.ED ---
Social Work SW met with patient due to patient telling triage nurse he was homeless. Patient stated he and his in August. Patient stated at that time, he went to stay with his Dad however two weeks ago, he was asked to leave. Patient stated he may be able to go live with his Mom but he was supposed to start a new job at [employer] tomorrow and wasnt sure he would be able to transfer to a location near where she lives. Patient states if he is not able to transfer, he will continue to live out of his car, couch surf when he can, and save money for a place of his own. SDOH completed and patient was given resources for [facility], [place] card, [facility], and food pantries and hot meal locations. Emerita from [employer] also contacted to meet with patient to determine if eligible for Medicaid. No further needs identified at this time. Olinda Millan, AIR EXPORT OPERATIONS AGENT, FACTORY LAY OUT ENGINEER
== END 2024-12-22 14:50 | disposition home or self-care (01) ==
LOC: ED 14:35
PROVIDERS: Emergency Provider Emergency Medicine; Referring Provider Emergency Medicine; Visit Provider Emergency Medicine
DX: M79.672 Pain in left foot (principal); M10.072 Idiopathic gout, left ankle and foot; F17.210 Nicotine dependence, cigarettes, uncomplicated
CPT/HCPCS: 73630; 99283

== ENCOUNTER 2025-03-30 12:59 | Emergency (ER) | payer SELFPAY ==
[2025-03-30 13:00] VITALS: BP 149/119; PULSE 95; RESP 18; TEMP 36.6; O2SAT 94; BMI 43.3
[2025-03-30 13:03] VITALS: BP 149/119; PULSE 95; RESP 18; TEMP 36.6; O2SAT 94
[2025-03-30 13:09] VITALS: O2SAT 94
--- NOTE | 2025-03-30 13:42 | RAD_ITS ---
PROCEDURE: CHEST 1 VIEW (PORTABLE) 03/30/2025 REASON FOR EXAM: DYSPNEA TECHNIQUE: Frontal view of the chest. COMPARISON: 10/12/2023 FINDINGS: Lungs: Lungs clear of pneumonia and congestion. Pleura: No pleural effusions, thickening, or pneumothorax. Heart: Normal in size and configuration. Mediastinum/Pennie: Unremarkable. Great vessels: Unremarkable. Bones/soft tissues: Unremarkable. RAD/Chest 1 View (Portable) IMPRESSION: 1. No active cardiopulmonary disease. Reading Location: [place] [id number]
[2025-03-30] MEDS: Albuterol 2.5 MG/3 ML VIAL.NEB. INHALATION (13:53)
[2025-03-30] MEDS: Ipratropium/Albuterol Sulfate 3 ML AMPUL.NEB INHALATION (13:53)
[2025-03-30 13:54] VITALS: PULSE 86; RESP 17
[2025-03-30] MEDS: predniSONE 20 MG Tablet 60 MG PO (14:08)
--- NOTE | 2025-03-30 14:12 | ED.VIS.DYS ---
HPI History of Present Illness Chief Complaint: Shortness of Breath Informant: patient Narrative Narrative: 29-year-old male presenting to the emergency room with cough and shortness of breath. Patient states he has recurrent episodes of wheezing and bronchitis. He does not utilize tobacco but does smoke cannabis. He states he is never been tested for asthma. States that family has given him inhalers in the past that been helpful but over the past 24 hours in particular he has not been able to sleep very well and keeps waking up short of breath. No sputum production no fevers. [facility] Medical History Kidney disease Liver abscess Asthma attack Home Medications ?Medication ?Instructions ?Recorded ?Last Taken ?Type prednisone 20 mg tablet 60 mg (3 x 20 mg) PO DAILY #12 10/12/23 Unknown Rx TABLETS dicyclomine 20 mg tablet 20 mg PO TID #20 tabs 12/06/24 Unknown Rx ondansetron 4 mg disintegrating 4 mg PO Q6H PRN nausea and 12/06/24 Unknown Rx tablet vomiting #20 tabs prednisone 20 mg tablet 40 mg (2 x 20 mg) PO DAILY 7 days 12/22/24 Unknown Rx #14 tabs albuterol sulfate 90 mcg/actuation 2 puff inhalation Q4H PRN PRN 03/30/25 Unknown Rx aerosol inhaler (Ventolin HFA) Wheezing ##1 prednisone 20 mg tablet 60 mg (3 x 20 mg) PO DAILY #15 03/30/25 Unknown Rx TABLETS Allergy/AdvReac Type Severity Reaction Status Date / Time amoxicillin Allergy Hives Verified 03/30/25 13:03 Penicillins Allergy Hives Verified 03/30/25 13:03 Surgical History Hx of appendectomy Social History household members: spouse, children and none housing: homeless current occupational status: employed and unemployed Smoking Status: Current every day smoker tobacco type: cigarettes ROS ROS ED Constitutional Constitutional ED: Denies chills, fever(s) or weight loss Eyes Eyes: Denies change in vision or diplopia ENT ENT ED: Denies ear pain, rhinorrhea or sore throat Cardiovascular Cardiovascular: Denies chest pain, orthopnea, palpitations or racing heartbeat Respiratory/Chest Respiratory/Chest: Reports cough, dyspnea and dyspnea on exertion; Denies orthopnea Gastrointestinal Gastrointestinal: Denies abdominal pain, diarrhea, nausea or vomiting Genitourinary Genitourinary ED: Denies dysuria, hematuria or urinary frequency Musculoskeletal Musculoskeletal: Denies arthralgias or myalgias Integumentary Denies abscess or rash Neurologic Neurologic: Denies headache(s) or weakness Psychiatric Psychiatric: Denies anxiety, depression, suicidal ideation or suicidal thoughts Endocrine Endocrinology: Denies polydipsia, polyphagia or polyuria Allergic/Immunologic Allergic/Immunologic ED: Denies mouth swelling, tongue swelling or urticaria EXAM Physical Exam Const Vital Signs: 03/30/25 13:00 03/30/25 13:03 03/30/25 13:09 Temperature 97.9 F 97.9 F Temperature Source Temporal Temporal Pulse Rate 95 95 Respiratory Rate 18 18 Respiratory Effort Short of Breath Respiratory Pattern Blood Pressure 149/119 H 149/119 H Blood Pressure Mean 129 129 Pulse Ox 94 94 Oxygen Delivery Method Room Air Room Air Room Air 03/30/25 13:54 Temperature Temperature Source Pulse Rate 86 Respiratory Rate 17 Respiratory Effort Respiratory Pattern Normal Blood Pressure Blood Pressure Mean Pulse Ox Oxygen Delivery Method Positive well nourished and well developed General Appearance ED: well developed and NAD HEENT Reports normocephalic, head/scalp atraumatic and moist mucous membranes Eyes PERRL and EOMs intact bilaterally Neck no lymphadenopathy, supple and no JVD Resp Resp Narrative: Nonproductive cough Auscultation: wheezes expiratory wheezes Cardio regular rate, regular rhythm and no murmurs GI normal to inspection, nondistended, normoactive bowel sounds and non-tender Palpation: soft Back/Spine no CVA tenderness and normal ROM Extremity normal to inspection General Extremety ED: Negative for edema General Extremity: Negative for edema Neuro oriented x3 and CN's II-XII intact bilaterally Sensorium / Orientation: alert Motor Exam: strength 5/5 throughout Psych mental status grossly normal Mood & Affect: Negative for depressed or tearful Skin no rashes or lesions noted and no wounds MDM MDM MDM Narrative Medical decision making narrative: Differential diagnosis includes but not limited to bronchitis bronchospasm asthma pleural effusion Based on the physical exam and his history I do wonder if he has an underlying asthma diagnosis. He has never been tested. My independent interpretation of the chest x-ray is no acute process. He received a DuoNeb and albuterol aerosols as well as prednisone. His lung sounds are now clear. He has been on prednisone before and has done well with it. I will write for albuterol MDI with spacer as well as prednisone. I strongly encouraged him to follow-up either with primary care or pulmonology. Patient understand return instructions History & Record Review Discussion w/independent historian: Patient Additional record(s) reviewed:: Prior ED visit Radiography Diagnostic Testing: Clinical Impression(s) from Imaging Studies Chest X-Ray 03/30/25 13:42 IMPRESSION: 1. No active cardiopulmonary disease. Reading Location: [place] [address] Discharge Plan Triage Chief Complaint: Shortness of Breath ED Provider: Cruz Duarte Dx/Rx/DC Orders Clinical Impression: Acute bronchospasm, Acute dyspnea Instructions: ED Bronchospasm (Adult) Prescriptions: New prednisone 20 mg tablet 60 mg PO DAILY Qty: 15 0RF albuterol sulfate [Ventolin HFA] 90 mcg/actuation HFA aerosol inhaler 2 puff inhalation Q4H PRN PRN (Reason: Wheezing) Qty: 1 0RF Rx Instructions: dispense with spacer No Action prednisone 20 mg tablet 60 mg PO DAILY Qty: 12 0RF ondansetron 4 mg tablet,disintegrating 4 mg PO Q6H PRN (Reason: nausea and vomiting) Qty: 20 0RF dicyclomine 20 mg tablet 20 mg PO TID Qty: 20 0RF prednisone 20 mg tablet 40 mg PO DAILY 7 Days Qty: 14 0RF Primary Care Provider: Care Physician,No Primary Referrals: Michael Ho DO [Med Staff - Active Staff] - As soon as possible (or pulmonology) Columba Nair MD [Med Staff - Active Staff] - (for primary care) Care Physician,No Primary [Primary Care Provider] - Print Language: Bermudian Disposition Disposition: Home, Self Care
[2025-03-30 14:35] VITALS: BP 173/108; PULSE 73; RESP 18; TEMP 36.4; O2SAT 98
== END 2025-03-30 14:37 | disposition home or self-care (01) ==
PROVIDERS: Emergency Provider Emergency Medicine; Referring Provider Emergency Medicine; Visit Provider Emergency Medicine
DX: J98.01 Acute bronchospasm (principal); R06.00 Dyspnea, unspecified; F17.210 Nicotine dependence, cigarettes, uncomplicated; Z59.00 Homelessness unspecified
CPT/HCPCS: 71045; 94640; 99282

== ENCOUNTER 2025-04-16 17:28 | Emergency (ER) | payer SELFPAY ==
[2025-04-16 17:28] VITALS: BP 202/78; PULSE 75; RESP 16; TEMP 36.6; O2SAT 98; BMI 43.5
[2025-04-16 17:31] VITALS: BP 179/133
--- OUTSIDE RECORDS SUMMARY | 2025-04-16 17:52 | XMS RPT_ITS | CCD ---
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 [facility] Care Team Providers Care Set Up Mechanic Name Role Phone PHYSICIAN, NONE Unavailable Unavailable JJ, VU Unavailable Unavailable [facility] Unavailable Unavai lable ANDBENOIT DO Admitting Unavailable AA NO PCP, NO PCP Primary Care Unavailable ANDES, BENOIT Attending Unavailable MERCER, VALERIY E Attending Unavailable MERCER, VALERIY E Admitting Unavailable AA NO PCP, NO PCP Primary Care Unavailable Unavailable Primary Care Provider Unavailabl e Unavailable Primary Care Provider Unavailabl e NO FAMILY PHYSICIAN, 837 Primary Care Unavail able TAUJC DRAPER, KAILYN Attending Unavailable MÓNICA SERRANO MD Admitting Unavailable Care Physician, No Primary Primary Care Provider Unavailable Dr. Darin Huang DO Attending Provider [phone] Dr. Darin Huang DO Emergency Provider Ryan Crump MD Attending Provider Ryan Crump MD Referring Provider Ryan Crump MD Emergency Provider Dr. Cruz Duarte DO Referring Provider Dr. Cruz Duarte DO Emergency Provider Care Physician, No Primary Primary Care Unava ilable Darin Huang Attending Unavailable Care Physician, No Primary Primary Care Unava ilable Ryan Crump Attending Unavailable Ryan Crump Referring Unavailable Care Physician, No Primary Primary Care Unava ilable Provider, Ed Physician Attending Unavailab Cruz Trimble Attending Unavailable Cruz Duarte Referring Unavailable Care Physician, No Primary Primary Care Unava ilable Allergies Allergy Classification Reported Allergen(s) Allergy Type Date of Onset Reaction(s) Facility (3 sources) Penicillins; Translations: [PENICILLINS] Drug allergy (disorder) 08-19-2015 [facility] Repository (6 sources) Amoxicillin Drug Allergy 04-19-2022 Rash, [facility] (5 sources) Penicillins Allergy to substance 02-19-2023 Rash, [facility] (3 sources) Penicillins Drug Allergy 08-19-2015 [facility] (1 source) Amoxicillin Drug Allergy 03-30-2025 [facility] Repository (1 source) Penicillins Drug allergy (disorder) 03-30-2025 [facility] Repository Medications Current Medications Medication Drug Class(es) Dates Sig (Normalized) Sig (Original) acetaminophen 325 mg / HYDROcodone bitartrate 5 mg oral tablet (2 sources) Opioid Agonist Start: 04-19-2022 take 1 tablet by mouth every six hours Hydrocodone-Aceta minophen Active 1 TABLET PO EVERY 6 HOURS 10 3 April 19, 2022 [id number] 200 actuat albuterol 0.09 mg/actuat metered dose inhaler (7 sources) beta2-Adrenergic Agonist Start: 03-30-2025 Albuterol Sulfate (Ventolin Hfa) 90 mcg/actuation HFA aerosol inhaler Active 2 NMA INHALATION EVERY 4 HOURS NEEDED as needed for Wheezing March 30, 2025 12:00am dispense with spacer Start: 09-02-2022 End: 10-12-2023 Albuterol Sulfate (Ventolin Hfa) 1 INHALER inhaler Discontinued 1 - 2 NMA INHALATION EVERY 4 HOURS NEEDED as needed for Wheezing September 02, 2022 1:00am October 12, 2023 8:28pm Start: 09-02-2022 End: 10-12-2023 take 1 puff(s) by inhalation every four hours as needed Albuterol Sulfate (Ventolin Hfa) 1 INHALER inhaler Discontinued 1 - 2 PUFF INHALATION EVERY 4 HOURS NEEDED September 02, 2022 12:00am October 12, 2023 7:28pm amphetamine aspartate 7.5 mg / amphetamine sulfate 7.5 mg / dextroamphetamine saccharate 7.5 mg / dextroamphetamine sulfate 7.5 mg oral tablet (3 sources) Central Nervous System Stimulant take 1 tablet by mouth once daily Amphetamine-Dextroamphetamine (ADDERALL) 30 mg tablet Take 30 mg by mouth once daily. 0 Active Comment on above: Take 30 mg by mouth once daily. dicyclomine hydrochloride 20 mg oral tablet (1 source) Anticholinergic Sta rt: 5 take 1 tablet by mouth three times daily Dicyclomine 20 mg tablet Active 20 mg PO THREE TIMES A DAY December 06, 2024 1:00am ondansetron 4 mg disintegrating oral tablet (4 sources) Serotonin-3 Receptor Antagonist Sta rt: 5 take 1 tablet by mouth every six hours as needed for nausea and vomiting Ondansetron 4 mg tablet,disintegrating Active 4 mg PO EVERY 6 HOURS as needed for nausea and vomiting December 06, 2024 1:00am Start: 08-19-2015 take 1 tablet by tianna th every four hours as needed ondansetron orally disintegrating (ZOFRAN ODT) 4 mg disintegrating tablet Take 1 tablet by mouth every 4 hours as needed for Nausea/Vomiting. 8 tablet 0 08/19/2015 Active Comment on above: Take 1 tablet by tianna th every 4 hours as needed for Nausea/Vomiting. predniSONE 20 mg oral tablet (8 sources) Start: 12-22-19 take 2 tablets by mouth once daily Prednisone 20 mg tablet Active 40 mg PO DAILY 14 December 22, 2024 1:00am Start: 03-10-2024 predniSONE (DE LTASONE) 10 mg tablet Take 4 tabs daily for 3 days, then 2 tabs daily for 3 days, then 1 tab daily for 3 days with food. 21 tablet 0 03/10/2024 Active Start: 10-12-2023 take 3 tablets by mo uth once daily Prednisone 20 mg tablet Active 60 mg PO DAILY March 30, 2025 12:00am Start: 10-12-2023 take 60 mg by mouth once daily Prednisone Active 60 MG PO DAILY October 12, 2023 12:00am Start: 02-19-2023 take 50 mg by mouth once daily Prednisone Active 50 MG PO DAILY February 19, 2023 12:00am Start: 04-19-2022 take 60 mg by mouth once daily Prednisone Active 60 MG PO DAILY April 19, 2022 12:00am Problems Active Problems Problem Classification Problem Date Documented Da te Episodic/Chronic Allergic reactions (1 source) Allergy status to penicillin; Translations: [ALLERGY STATUS TO PENICILLIN] Onset: 07-31-2021 Episodic Appendicitis and other appendiceal conditions (6 sources) Appendicitis; Translations: [Unspecified appendicitis] 12-03-2015 Episodic Asthma (6 sources) Exacerbation of asthma; Translations: [Unspecified asthma with (acute) exacerbation] 10-31-2021 Chronic Chronic kidney disease (6 sources) Chronic renal failure; Translations: [Chronic renal failure, stage 3 (moderate)] 04-19-2022 Chronic Diseases of white blood cells (6 sources) Leukocytosis; Translations: [Elevated white blood cell count, unspecified] 12-03-2015 Chronic Essential hypertension (1 source) Hypertensive disorder; Translations: [Essential (primary) hypertension] 10-20-2023 Chronic Gastrointestinal hemorrhage (7 sources) Rectal hemorrhage; Translations: [Hemorrhage of anus and rectum] 12-12-2021 Episodic Gout and other crystal arthropathies (9 sources) Gout, unspecified; Translations: [Gouty arthritis of right foot] Onset: 07-31-2021 04-27-2022 Chronic Immunizations and screening for infectious disease (6 sources) Suspected disease caused by 2019-nCoV; Translations: [Suspected COVID-19 virus infection] 10-31-2021 Episodic Nonspecific chest pain (11 sources) Chest pain; Translations: [Chest pain, unspecified] 12-19-2021 Episodic Other aftercare (1 source) prison (current) use of systemic steroids; Translations: [GROUP HOME USE OF SYSTEMIC STEROIDS] Onset: 07-31-2021 Episodic Other circulatory disease (6 sources) Elevated blood pressure; Translations: [Elevated blood-pressure reading, without diagnosis of hypertension] 04-27-2022 Episodic Other circulatory disease (2 sources) Elevated blood-pressure reading without diagnosis of hypertension; Translations: [Elevated blood-pressure reading, without diagnosis of hypertension] 10-12-2023 Episodic Other connective tissue disease (1 source) Pain in right toe(s); Translations: [PAIN IN RIGHT TOES] Onset: 06-04-2021 Episodic Other connective tissue disease (4 sources) Foot pain; Translations: [Pain in left foot] 05-25-2023 Episodic Other connective tissue disease (1 source) Pain in left foot; Translations: [Pain in left foot] Onset: 01-05-2025 Episodic Other injuries and conditions due to external causes (1 source) Unspecified injury of right foot, initial encounter; Translations: [UNSPECIFIED INJURY RT FOOT INITIAL] Onset: 07-31-2021 Episodic Other lower respiratory disease (6 sources) Wheezing; Translations: [Wheezing] 09-02-2022 Episodic Other lower respiratory disease (6 sources) Chronic cough; Translations: [Chronic cough] 12-19-2021 Episodic Other lower respiratory disease (6 sources) Dyspnea; Translations: [Dyspnea, unspecified] 09-10-2022 Episodic Other lower respiratory disease (1 source) Shortness of breath; Translations: [Shortness of breath] Onset: 04-03-2025 Episodic Other upper respiratory disease (3 sources) Acute bronchospasm; Translations: [Acute bronchospasm] 10-12-2023 Episodic Other upper respiratory infections (8 sources) Viral upper respiratory tract infection; Translations: [Acute upper respiratory infection, unspecified] 11-08-2021 Episodic Pneumonia (except that caused by tuberculosis or sexually transmitted disease) (6 sources) Community acquired pneumonia; Translations: [Pneumonia, unspecified organism] 12-03-2015 Episodic Residual codes; unclassified (6 sources) Tobacco user; Translations: [Tobacco use] 12-19-2021 Episodic Residual codes; unclassified (5 sources) Acquired absence of other specified parts of digestive tract; Translations: [Status post laparoscopic appendectomy] 12-03-2015 Episodic Residual codes; unclassified (2 sources) Tobacco use and exposure - finding; Translations: [Tobacco use] 10-12-2023 Episodic Unclassified (1 source) or pulmonology Unclassified (1 source) for primary care Viral infection (1 source) Disease caused by 2019-nCoV; Translations: [COVID-19] 10-20-2023 Episodic Past or Other Problems Problem Classification Problem Date Documented Da te Episodic/Chronic Nausea and vomiting (2 sources) Nausea and vomiting; Translations: [Nausea with vomiting, unspecified] Onset: 12-21-2024 12-14-2024 Episodic Results Test Name Value Interpretation Reference Range Facility Chest 1 View (Portable)on Chest 1 View (Portable) [facility] Imaging Services [address], [place] [id number] Chest 1 View (Portable) MR#: [id number] Acct: [id number] Name: BREANNEDARIN KEYUR Rep #: [id number] : 1995 M 29 From: Tha Dial MD PCP: Care Physician,No Primary Status: [facility] ER Study: Chest 1 View (Portable) Date of Exam: 03/30/25 Exam# [id number] Ordering Dr: Cruz Duarte DO PROCEDURE: CHEST 1 VIEW (PORTABLE) 03/30/2025 REASON FOR EXAM: DYSPNEA TECHNIQUE: Frontal view of the chest. COMPARISON: 10/12/2023 FINDINGS: Lungs: Lungs clear of pneumonia and congestion. Pleura: No pleural effusions, thickening, or pneumothorax. Heart: Normal in size and configuration. Mediastinum/Pennie: Unremarkable. Great vessels: Unremarkable. Bones/soft tissues: Unremarkable. RAD/Chest 1 View (Portable) IMPRESSION: 1. No active cardiopulmonary disease. Reading Location: [place] [address] CC: Dr. Cruz Duarte DO; No Primary Care Physician Crime Laboratory Analyst: Signed Normal [facility] Emergency Department Summary on 03-30-2025 Emergency Department Summary [facility] Medical Records Department [address] [place] [address] Emergency Department Summary 03/30/25 MR#: [id number] Acct: [id number] Name: DARIN RAYMUNDO Rep #: [id number] : 1995 29 From: Cruz Duarte DO PCP: Care Physician,No Primary Status:[facility] ER Location: ED HPI History of Present Illness Chief Complaint: Shortness of Breath Informant: patient Narrative Narrative: 29-year-old male presenting to the emergency room with cough and shortness of breath. Patient states he has recurrent episodes of wheezing and bronchitis. He does not utilize tobacco but does smoke cannabis. He states he is never been tested for asthma. States that family has given him inhalers in the past that been helpful but over the past 24 hours in particular he has not been able to sleep very well and keeps waking up short of breath. No sputum production no fevers. [facility] Medical History Kidney disease Liver abscess Asthma attack Home Medications ???Medication ???Instructions ???Recorded ???Last Taken ???Type prednisone 20 mg tablet 60 mg (3 x 20 mg) PO DAILY #12 Unknown Rx TABLETS dicyclomine 20 mg tablet 20 mg PO TID #20 tabs 12/06/24 Unk nown Rx ondansetron 4 mg disintegrating 4 mg PO Q6H PRN nausea and 5 Unknown Rx tablet vomiting #20 tabs prednisone 20 mg tablet 40 mg (2 x 20 mg) PO DAILY 7 days 12/22/24 Unknown Rx #14 tabs albuterol sulfate 90 mcg/actuation 2 puff inhalation Q4H PRN PRN Unknown Rx aerosol inhaler (Ventolin HFA) Wheezing ##1 prednisone 20 mg tablet 60 mg (3 x 20 mg) PO DAILY #15 03/19 Unknown Rx TABLETS Allergy/AdvReac Type Severity Reaction Status Date / Time amoxicillin Allergy Hives Verified 03/30/25 13:03 Penicillins Allergy Hives Verified 03/30/25 13:03 Surgical History Hx of appendectomy Social History household members: spouse, children and none housing: homeless current occupational status: employed and unemployed Smoking Status: Current every day smoker tobacco type: cigarettes ROS ROS ED Constitutional Constitutional ED: Denies chills, fever(s) or weight loss Eyes Eyes: Denies change in vision or diplopia ENT ENT ED: Denies ear pain, rhinorrhea or sore throat Cardiovascular Cardiovascular: Denies chest pain, orthopnea, palpitations or racing heartbeat Respiratory/Chest Respiratory/Chest: Reports cough, dyspnea and dyspnea on exertion; Denies orthopnea Gastrointestinal Gastrointestinal: Denies abdominal pain, diarrhea, nausea or vomiting Genitourinary Genitourinary ED: Denies dysuria, hematuria or urinary frequency Musculoskeletal Musculoskeletal: Denies arthralgias or myalgias Integumentary Denies abscess or rash Neurologic Neurologic: Denies headache(s) or weakness Psychiatric Psychiatric: Denies anxiety, depression, suicidal ideation or suicidal thoughts Endocrine Endocrinology: Denies polydipsia, polyphagia or polyuria Allergic/Immunologic Allergic/Immunologic ED: Denies mouth swelling, tongue swelling or urticaria EXAM Physical Exam Const Vital Signs: 03/30/25 13:00 03/30/25 13:03 03/30/25 13:09 Temperature 97.9 F 97.9 F Temperature Source Temporal Temporal Pulse Rate 95 95 Respiratory Rate 18 18 Respiratory Effort Short of Breath Respiratory Pattern Blood Pressure 149/119 H 149/119 H Blood Pressure Mean 129 129 Pulse Ox 94 94 Oxygen Delivery Method Room Air Room Air Room Air 03/30/25 13:54 Temperature Temperature Source Pulse Rate 86 Respiratory Rate 17 Respiratory Effort Respiratory Pattern Normal Blood Pressure Blood Pressure Mean Pulse Ox Oxygen Delivery Method Positive well nourished and well developed General Appearance ED: well developed and NAD HEENT Reports normocephalic, head/scalp atraumatic and moist mucous membranes Eyes PERRL and EOMs intact bilaterally Neck no lymphadenopathy, supple and no JVD Resp Resp Narrative: Nonproductive cough Auscultation: wheezes expiratory wheezes Cardio regular rate, regular rhythm and no murmurs GI normal to inspection, nondistended, normoactive bowel sounds and non-tender Palpation: soft Back/Spine no CVA tenderness and normal ROM Extremity normal to inspection General Extremety ED: Negative for edema General Extremity: Negative for edema Neuro oriented x3 and CN's II-XII intact bilaterally Sensorium / Orientation: alert Motor Exam: strength 5/5 throughout Psych mental status grossly normal Mood Affect: Negative for depressed or tearful Skin no rashes or lesions noted and no wou (more content not included)... Normal [facility] Emergency Department Summary on 12-22-2024 Emergency Department Summary [facility] Medical Records Department [address] [place] [address] Emergency Department Summary 12/22/24 MR#: [id number] Acct: [id number] Name: DARIN RAYMUNDO Rep #: [id number] : 1995 29 From: Ryan Crump MD PCP: Care Physician,No Primary Status:PRE ER Location: ED HPI History of Present Illness Chief Complaint: Lower Extremity Injury Narrative Narrative: 29-year-old male presents with pain in his left great toe and foot with mild swelling. He does have history of gout, but states he usually gets it in the right foot. Over the last few days, he has noticed pain and swelling at the first MTP joint and pain across the top of his left foot. No fevers or chills, denies recent injury. At times he has leftover prednisone for his gout and has taken 1 tablet daily over the last 2 days, but has not resolved his symptoms. No trauma to the area. Patient states that he has pain with weightbearing and walking, and cannot even put a sheet on his foot when he sleeps. [facility] Medical History Kidney disease Liver abscess Asthma attack Home Medications ???Medication ???Instructions ???Recorded ???Last Taken ???Type prednisone 20 mg tablet 60 mg (3 x 20 mg) PO DAILY #12 Unknown Rx TABLETS dicyclomine 20 mg tablet 20 mg PO TID #20 tabs 12/06/24 Unk nown Rx ondansetron 4 mg disintegrating 4 mg PO Q6H PRN nausea and 5 Unknown Rx tablet vomiting #20 tabs prednisone 20 mg tablet 40 mg (2 x 20 mg) PO DAILY 7 days 12/22/24 Unknown Rx #14 tabs Allergy/AdvReac Type Severity Reaction Status Date / Time amoxicillin Allergy Hives Verified 12/06/24 02:39 Penicillins Allergy Hives Verified 12/06/24 02:39 Surgical History Hx of appendectomy Social History household members: spouse and children housing: house current occupational status: employed Smoking Status: Current every day smoker tobacco type: cigarettes ROS ROS ED ROS Narrative Review of systems positive for left great toe MTP joint pain and swelling with mild redness. Denies any fevers or chills, positive swelling to his left foot with pain across the dorsum. No recent injury. EXAM Physical Exam Narrative Exam Narrative: Afebrile. Vital signs noted. Nontoxic-appearing. Cardiovascular examination reveals a regular rate and rhythm. Lungs clear to auscultation bilaterally. Abdomen soft and nontender with positive bowel sounds. Inspection of the left foot does reveal mild swelling with erythema at the first MTP joint. No crepitance over foot. No pain in ankles and above. Const Vital Signs: 12/22/24 13:23 Temperature 98.2 F Temperature Source Temporal Pulse Rate 89 Respiratory Rate 15 Blood Pressure 155/102 H Blood Pressure Mean 119 Pulse Ox 99 Oxygen Delivery Method Room Air MDM MDM MDM Narrative Medical decision making narrative: Differential diagnosis includes but not limited to cellulitis versus podagra/gouty arthritis exacerbation versus foot sprain versus fracture. I reviewed the patient's prior ED visits and he has been treated with prednisone for gout. X-rays were obtained per protocol of the left foot and interpreted by myself independently as no evidence of acute fracture, no gas in the tissue. No significant soft tissue swelling. I do not feel that he has a necrotizing fasciitis. I reviewed the radiology report which confirms my independent interpretation as well. At this point in time, I wrote him a prescription for continued burst of prednisone over the next 7 days. Additionally, he was given a dose of colchicine here 1.2 mg orally. I feel he can be discharged to follow-up with the [facility] clinic as he states he is currently homeless and does not have health insurance. Return instructions to the emergency department were reviewed. Disposition is discharged home in stable condition. History Record Review Discussion w/independent historian: Patient Additional record(s) reviewed:: Prior ED visit Radiography Diagnostic Testing: Clinical Impression(s) from Imaging Studies Foot X-Ray 12/22/24 13:30 IMPRESSION: Unremarkable examination. Reading Location: [id number] Discharge Plan Triage Chief Complaint: Lower Extremity Injury ED Provider: Ryan Crump Dx/Rx/DC Orders Clinical Impression: Foot pain, left, Podagra Instructions: ED Foot Sprain, ED Gout, ED Gout Diet Prescriptions: New prednisone 20 mg tablet 40 mg PO DAILY 7 Days Qty: 14 0RF No Action prednisone 20 mg tablet 60 mg PO DAILY Qty: 12 0RF ondansetron 4 mg tablet, (more content not included)... Normal [facility] Foot min 3 Viewson 5 Foot min 3 Views [facility] Imaging Services [address] [place] [address] Foot min 3 Views MR#: [id number] Acct: [id number] Name: DARIN RAYMUNDO Rep #: [id number] : 1995 M 29 From: Fawad dixon MD PCP: Care Physician,No Primary Status: PRE ER Study: Foot min 3 Views Date of Exam: 12/22/24 Exam# [id number] Ordering Dr: Provider,Ed P. PROCEDURE: FOOT MIN 3 VIEWS REASON FOR EXAM: Pain. History of gout. TECHNIQUE: Three views of the left foot were obtained. COMPARISON: Comparison is made with prior study dated May 25, 2023 FINDINGS: LEFT FOOT: No visible fracture. No suspicious bone lesion. Normal alignment. Soft tissues are unremarkable. RAD/Foot min 3 Views IMPRESSION: Unremarkable examination. Reading Location: [id number] CC: ED PHYSICIAN PROVIDER; No Primary Care Physician Crime Laboratory Analyst: Signed Normal [facility] Emergency Department Summary on 12-06-2024 Emergency Department Summary [facility] Medical Records Department [address] [place] [address] Emergency Department Summary 12/06/24 MR#: [id number] Acct: [id number] Name: RANDYDARIN HUGHES Rep #: [id number] : 1995 29 From: Darin Huang DO PCP: Care Physician,No Primary Status:REG ER Location: ED HPI History of Present Illness Chief Complaint: General Illness Narrative Narrative: Patient is a 29-year-old male with past medical history of anxiety, hypertension but states that he cannot afford his blood pressure medication therefore he has not been taking that he chose to take his mental health medications instead who presents to the emergency department chief complaint nausea vomiting diarrhea diffuse bodyaches. Patient states that his son and recently tested positive for influenza A also noted that last night they went to dinner to [employer] and felt that the chicken was undercooked but states that he ate a few bites of this before realizing and does not know if he has food poisoning. [facility] Medical History Kidney disease Liver abscess Asthma attack Home Medications ???Medication ???Instructions ???Recorded ???Last Taken ???Type prednisone 20 mg tablet 60 mg (3 x 20 mg) PO DAILY #12 Unknown Rx TABLETS dicyclomine 20 mg tablet 20 mg PO TID #20 tabs 12/06/24 Unk nown Rx ondansetron 4 mg disintegrating 4 mg PO Q6H PRN nausea and 5 Unknown Rx tablet vomiting #20 tabs Allergy/AdvReac Type Severity Reaction Status Date / Time amoxicillin Allergy Hives Verified 12/06/24 02:39 Penicillins Allergy Hives Verified 12/06/24 02:39 Surgical History Hx of appendectomy Social History household members: spouse and children housing: house current occupational status: employed Smoking Status: Current every day smoker tobacco type: cigarettes ROS ROS ED ROS Narrative Constitutional: Complains of chills and diffuse bodyaches as noted above Cardiovascular: Denies chest pain or palpitations Respiratory: Denies coughing wheezing shortness of breath Abdomen: Complains of nausea vomiting diarrhea as noted above : Denies any urinary symptoms Neurological: Denies numbness, weakness, tingling Musculoskeletal: Denies back pain Skin: Denies rashes or lesions EXAM Physical Exam Narrative Exam Narrative: General: Patient was lying in bed rest comfortably did not appear to be in acute distress Head: Atraumatic, normocephalic Eyes: PERRL bilaterally, EOMI bilaterally, no conjunctival injection noted Neck: Soft, supple, trachea midline Cardiovascular: Regular rate and rhythm no murmurs gallops rubs noted Respiratory: Clear to auscultation bilaterally Abdomen: Soft, nondistended, no tenderness palpation Extremities: +5/5 strength noted in the bilateral upper and lower extremities, no pedal edema on exam radial pulses +2/4 in the bilateral extremities Neurological: Patient follow commands knew that he was at [facility] year is 2024 Skin: Warm, dry, intact Const Vital Signs: 12/06/24 02:38 12/06/24 02:42 12/06/24 02:56 Temperature 98.7 F 98.7 F Temperature Source Oral Oral Pulse Rate 80 80 Respiratory Rate 16 16 Respiratory Effort Normal Respiratory Pattern Normal Blood Pressure 175/118 H 175/118 H Blood Pressure Mean 137 137 Pulse Ox 97 96 Oxygen Delivery Method Room Air Room Air MDM MDM MDM Narrative Medical decision making narrative: Patient is a 29-year-old male who presented to the emergency department with a chief complaint of nausea vomiting diarrhea concern for influenza A versus food poisoning. On the differential diagnose includes but limited to food poisoning, influenza A, viral gastroenteritis. Patient be given Zofran and Bentyl. He will be reevaluated. Patient tested negative for COVID flu and RSV. Repeat abdominal exam at 4:18 AM patient has no tenderness palpation. He states that he feels much improved and wanted to go home at this point time. Patient be given prescriptions for Bentyl and Zofran he is advised to start with a bland diet advance as tolerated. He is vies follow-up primary care physician outpatient setting return for worsening symptoms or other concerns. He is agreeable this plan all question concerns answered he is discharged home in stable condition. Patient is requesting work note which she will be provided. Discharge Plan Triage Chief Complaint: General Illness Other Complaint: Abd Pain ED Provider: Darin Huang Dx/Rx/DC Orders Clinical Impression: Nausea vomiting Prescriptions: New ondansetron 4 mg tablet,disintegratin g 4 mg PO Q6H PRN (Reason: nausea (more content not included)... Normal [facility] Influenza virus A and B and SARS-CoV-2 (COVID-19) and Respiratory syncytial virus RNAOrdered By: Darin Huang on 12-06-2024 SARS-CoV-2 (COVID-19) RNA HUE+probe Ql (Unsp spec) [facility] M100.678on 12-06-2024 M100.678 Pending SARS-CoV-2 (COVID 19) Negative INFLUENZA A Negative INFLUENZA B Negative RSV PCR Negative Normal [facility] Comment on above: Performed By: #### M 100.678 #### [facility] [address] [place], [address] ALCOHOLon 10-29-2024 Ethanol [Mass/Vol] mg/dL Normal [facility] Comment on above: Result Comment: Note : Alcohol values performed at [facility] are performed on serum or plasma and reported in mg/dl, which is different then the state reporting units of g/dl which is performed on whole blood. Result reporting units are based on test methodology and are not interchangable. Performed By: #### 1 09016, [id number], 599618, 340841 #### [facility] [address] [place] [address] 67649 Transplant Immunologist: Junior Little MD AUTO DIFFon 10-29-2024 Baso Count 0.10 x1000 Normal 0.00-0.20 [facility] Comment on above: Performed By: #### 1 59521, [id number], 787249, 521760 #### [facility] [address] [place] [address] 12739 Transplant Immunologist: Junior Little MD Basos % 1.2 % Normal [facility] Comment on above: Performed By: #### 1 54133, 2858435, 064389, 505038 #### [facility] [address] [place] [address] 11275 Transplant Immunologist: Junior Little MD Eos Count 0.20 x1000 Normal 0.00-0.50 [facility] Comment on above: Performed By: #### 1 47350, 0884950, 467787, 894311 #### [facility] [address] [place] [address] 94538 Transplant Immunologist: Junior Little MD Eosinophils/100 WBC (Bld) 1.5 % Normal [facility] Comment on above: Performed By: #### 1 71110, 0474589, 476542, 335119 #### [facility] [address] [place] [address] 89720 Transplant Immunologist: Junior Little MD Lymph Count 2.20 x1000 Normal 1.20-4.80 [facility] Comment on above: Performed By: #### 1 97448, 5392604, 643725, 531907 #### [facility] [address] [place] [address] 48949 Transplant Immunologist: Junior Little MD Lymphocytes/100 WBC (Bld) 18.8 % Normal [facility] Comment on above: Performed By: #### 1 93892, 4190441, 139005, 933511 #### [facility] [address] [place] [address] 97296 Transplant Immunologist: Junior Little MD [place] Count 0.60 x1000 Normal 0.10-1.00 [facility] Comment on above: Performed By: #### 1 95155, 8392939, 726918, 568430 #### [facility] [address] [place] [address] 84224 Transplant Immunologist: Junior Little MD Monocytes/100 WBC (Bld) 4.7 % Normal [facility] Comment on above: Performed By: #### 1 91813, 1347839, 910977, 128761 #### [facility] [address] [place] [address] 96415 Transplant Immunologist: Junior Little MD Neutrophil Count (ANC) 8.80 x1000 Normal 1.40-8.80 [facility] Comment on above: Performed By: #### 1 11342, 0012072, 462121, 028416 #### [facility] [address] [place] [address] 36979 Transplant Immunologist: Junior Little MD Neutrophils/100 WBC (Bld) 73.8 % Normal [facility] Comment on above: Performed By: #### 1 42945, 1947313, 301459, 721912 #### [facility] [address] [place] [address] 44196 Transplant Immunologist: Junior Little MD COMPMETAon 10-29-2024 GFR Estimated 40 Normal [facility] Comment on above: Result Comment: The GFR is calculated and is Age, Sex, and Race adjusted. Performed By: #### 1 77560, 7525099, 426033, 000600 #### [facility] [address] [place] [address] 76316 Transplant Immunologist: Junior Little MD Albumin [Mass/Vol] 3.0 g/dL Low 3.4-5.0 [facility] Comment on above: Performed By: #### 1 66437, 8848641, 108776, 208691 #### [facility] [address] [place] [address] Transplant Immunologist: Junior Little MD Albumin/Globulin [Mass ratio] 0.7 {ratio} Normal [facility] Comment on above: Performed By: #### 1 12681, 7038553, 080012, 829398 #### [facility] [address] [place] [address] 93286 Transplant Immunologist: Junior Little MD Alk Phos 137 unit/L High 45-117 [facility] Comment on above: Performed By: #### 1 38074, 0072498, 302883, 747824 #### [facility] [address] [place] [address] 96651 Transplant Immunologist: Junior Little MD Bilirubin [Mass/Vol] 0.30 mg/dL Normal 0.30-1.20 [facility] Comment on above: Result Comment: Use of this assay is not recommended for patients undergoing treatment with eltrombopag due to the potential for falsely elevated results. Performed By: #### 1 25868, 3500580, 521403, 667666 #### [facility] [address] [place] [address] 14689 Transplant Immunologist: Junior Little MD Calcium [Mass/Vol] 8.8 mg/dL Normal 8.5-10.5 [facility] Comment on above: Performed By: #### 1 25666, 7695906, 081875, 235942 #### [facility] [address] [place] [address] 86355 Transplant Immunologist: Junior Little MD Chloride [Moles/Vol] 106 mmol/L Normal 100-109 [facility] Comment on above: Performed By: #### 1 33733, 4460878, 950693, 027998 #### [facility] [address] [place] [address] 10575 Transplant Immunologist: Junior Little MD CO2 [Moles/Vol] 26.5 mmol/L Normal 21.0-32.0 [facility] Comment on above: Performed By: #### 1 85375, 5105925, 417174, 807332 #### [facility] [address] [place] [address] Transplant Immunologist: Junior Little MD Creatinine [Mass/Vol] 2.0 mg/dL High 0.7-1.3 [facility] Comment on above: Performed By: #### 1 12872, 7721944, 546087, 819233 #### [facility] [address] [place] [address] 15904 Transplant Immunologist: Junior Little MD Globulin (S) [Mass/Vol] 4.1 g/dL Normal [facility] Comment on above: Performed By: #### 1 70891, 2234406, 226908, 417943 #### [facility] [address] [place] [address] 48716 Transplant Immunologist: Junior Little MD Glucose [Mass/Vol] 168 mg/dL High 72-100 [facility] Comment on above: Result Comment: Radha puncture should occur prior to sulfasalazine administration due to the potential for falsely depressed results. Venipuncture should occur prior to sulfapyridine administration due to the potential falsely elevated results. Baseline assay values before administration of sulfasalazine and sulfapyridine therapy would not be affected. Performed By: #### 1 96081, 0672708, 648207, 792847 #### [facility] [address] [place] [address] 27373 Transplant Immunologist: Junior Little MD GOT 15 unit/L Normal 15-37 [facility] Comment on above: Result Comment: Radha puncture should occur prior to sulfasalazine administration due to the potential for falsely depressed results. Baseline assay values before administration of sulfasalazine and sulfapyridine therapy would not be affected. Performed By: #### 1 30038, 4624610, 508314, 205561 #### [facility] [address] [place] [address] 37504 Transplant Immunologist: Junior Little MD GPT 25 unit/L Normal 16-63 [facility] Comment on above: Result Comment: Radha puncture should occur prior to sulfasalazine administration due to the potential for falsely depressed results. Baseline assay values before administration of sulfasalazine and sulfapyridine therapy would not be affected. Performed By: #### 1 93209, 0377855, 741464, 994713 #### [facility] [address] [place] [address] 34384 Transplant Immunologist: Junior Little MD Osmolality [Osmolality] 293 mosm/kg Normal 275-295 [facility] Comment on above: Performed By: #### 1 96663, 7215057, 677406, 594033 #### [facility] [address] [place] [address] 66428 Transplant Immunologist: Junior Little MD Potassium [Moles/Vol] 4.0 mmol/L Normal 3.5-5.1 [facility] Comment on above: Performed By: #### 1 16887, 6207563, 523386, 474599 #### [facility] [address] [place] [address] 13628 Transplant Immunologist: Junior Little MD Protein [Mass/Vol] 7.1 g/dL Normal 6.0-8.5 [facility] Comment on above: Performed By: #### 1 51500, 9422515, 939018, 938880 #### [facility] [address] [place] [address] 96846 Transplant Immunologist: Junior Little MD Sodium [Moles/Vol] 144 mmol/L Normal 135-145 [facility] Comment on above: Performed By: #### 1 44102, 5529760, 939608, 651704 #### [facility] [address] [place] [address] 83185 Transplant Immunologist: Junior Little MD Urea nitrogen [Mass/Vol] 19 mg/dL Normal 10-20 [facility] Comment on above: Performed By: #### 1 70084, 3934456, 036091, 521263 #### [facility] [address] [place] [address] Transplant Immunologist: Junior Little MD Urea nitrogen/Creatinine [Mass ratio] 9.5 mg/mg Normal [facility] Comment on above: Performed By: #### 1 82736, 3121239, 644627, 936647 #### [facility] [address] [place] [address] Transplant Immunologist: Junior Little MD COVID-19 Molecular BREDon SARS-CoV-2 (COVID-19) RNA HUE+probe Ql (Unsp spec) Negative Normal Negative [facility] Comment on above: Result Comment: This assay is designed to detect the RdRp target of SARS-CoV-2 using rapid molecular isothermal amplification technology. A Negative result does not preclude the possibility of COVID 19 infection since the adequacy of sample collection and/or low viral burden may result in the presence of viral nucleic acids below the analytical sensitivity of this test method. Test results should be used along with other clinical and laboratory data in making the diagnosis. This testing was performed in the [facility] laboratory located at [place] [address]] Performed By: #### C [id number] #### [facility] [address] [place] [address] Transplant Immunologist: Junior Little MD ED Data JOURNEYMAN PRESS OPERATOR - Texton 025 ED Data JOURNEYMAN PRESS OPERATOR - Text ED Data JOURNEYMAN PRESS OPERATOR Entered On: 10/29/2024 17:13 EST Performed On: 10/29/2024 17:10 EST by Jeet Weinberg RN ED General Intake Information Lakisha Coma : Document Lakisha Coma Scale Problem History : Document Problem History Procedure History : Document Procedure History Safety Screening : Document Safety Screening Referral Source : Home Mode of Arrival * : Car / Walk-In ED KINDER1 Falls Risk : Document Falls Assessment Infection Screening : Document Infection Screening Depression Screening : Document Depression Screening Would you accept a blood transfusion if necessary? : Yes Social History : Document Social History Currently or : Not Applicable Jeet Weinberg RN - 10/29/2024 17:10 EST [place] Coma Scale Eye Opening : Spontaneously Best Verbal Response : Oriented Best Motor Response : Obeys simple commands [place] Coma Score (Ref) : 15 Jeet Weinberg RN - 10/29/2024 17:10 EST Problem History (As Of: 10/29/2024 17:13:44 EST) Problems(Active) Knowledge deficit (SNOMED CT :4399614891 ) Name of Problem: Knowledge deficit ; Recorder: SYSTEM; Confirmation: Confirmed ; Classification: Nursing ; Code: 1190509462 ; Last Updated: 12/06/2013 18:01 EST ; Life Cycle Date: 03/07/2012 ; Life Cycle Status: Active ; Vocabulary: SNOMED CT ; Comments: 03/07/2012 2:11 - SYSTEM Problem added automatically by system based on learning needs addressed on emergency department admission. Diagnoses(Active) Psychiatric problem Date: 10/29/2024 ; Diagnosis Type: Reason For Visit ; Confirmation: Confirmed ; Clinical Dx: Psychiatric problem ; Classification: Medical ; Clinical Service: Non-Specified ; Code: PNED ; Probability: 0 ; Diagnosis Code: [id number] Procedure History ED Urinary Catheter Present on Admit to ED? : No Devices Present on Arrival To ED : None Jeet Weinberg RN - 10/29/2024 17:10 EST - Procedure History (As Of: 10/29/2024 17:13:44 EST) Safety Screening Abuse/Violence Concerns? : Patient denies Does the patient have a medically restricted extremity? : No Jeet Weinberg RN - 10/29/2024 17:10 EST KINDER1 Fall Risk Assessment *Presents to ED Because of Falls : No *Age > 70 : No *Altered Mental Status : No *Impaired Mobility : No *Nursing Judgment : No Jeet Weinberg RN - 10/29/2024 17:10 EST Infection Screening Travel outside [place] within past 21 days : No Positive COVID test in the last 10 days? : No Exposure to and/or close contact with a person who has a laboratory-confirmed COVID test within the last 48 hours. : No Jeet Weinberg RN - 10/29/2024 17:10 EST Depression Screening Patient able to verbalize? : Yes Feeling Down, Depressed, Hopeless : Not at all Little Interest - Pleasure in Activities : Not at all Initial Depression Screen Score : 0 Depression Screening Score 0 : No IP Pt being evaluated or treated for BH conditions : No Jeet Weinberg RN - 10/29/2024 17:10 EST Social History Are you being seen for an alcohol related problem? : No Do you or one of your family members feel like you have a drinking problem? : No Jeet Weinberg RN - 10/29/2024 17:10 EST Social History (As Of: 10/29/2024 17:13:44 EST) Normal [facility] ED Discharge Educationon ED Discharge Education Normal [facility] ED Emergency Severity Index Adult-Texton 10-29-2024 ED Emergency Severity Index Adult-Text EDDIE - Adult Entered On: 10/29/2024 17:13 EST Performed On: 10/29/2024 17:10 EST by Jeet Weinberg RN EDIDE DCP GENERIC CODE Visit Reason : Mental health Tracking Triage Date/Time : 10/29/2024 17:13 EST Tracking Reg Status : Requested Tracking Acuity : 2-Emergent Tracking Group : Jeet Huerta RN - 10/29/2024 17:10 EST Normal [facility] ED Patient Summaryon 025 ED Patient Summary [facility] Emergency Department Discharge Instructions [address] [place] [address] (Patient Copy) Name: DARIN RAYMUNDO : 1995 Allergies: penicillins Diagnosis: Depression; Verbalizes suicidal thoughts Visit Date: 10/29/2024 17:03:[address] [facility]#: [id number] Current Date Time: 10/29/2024 22:04:28 Address: [facility] [address] [facility] [address] Phone: [phone] Primary Care Provider: Name: NO FAMILY PHYSICIAN, 837 Phone: Emergency Department Care Providers: Primary Physician: MÓNICA SERRANO MD Thank you for choosing [facility] for your emergency care. You are very important to us. Our goal is to demonstrate our high quality medical care, and provide you with a very good patient experience. You may receive a survey about our service. Please take the time to complete the survey and return it so we can continue to enhance our service. Thank you again for allowing the [facility] Emergency Department to care for your medical needs. If you have questions about your care or follow up information please contact us at [phone]. Follow-Up Instructions BREANNEDARIN has been given these follow-up instructions: Patient Education Materials BREANNE DARIN has been given the following patient education materials: BEFORE YOU LEAVE Set up your [facility] [employer] account! [facility] is a secure, online health management tool that connects you to portions of your hospital-based electronic medical record, allowing you to see test results, manage appointments, access discharge care instructions and much more. You can access [employer] from a computer, tablet or smartphone. Enrollment/registrat ion is required. If you do not have a [facility] account, please provide us with an email address before you leave so that we may set up an account for you. New to [facility]! You may now securely connect some of the health management apps you use (e.g., fitness trackers, dietary trackers, etc.) to your health record in [facility]. This new feature provides expanded access to your health and wellness data, which will help you and your care team make informed decisions about your health care. If you are interested in using a health management minh not currently connected to [facility] [facility], contact a Steel Fitter at [email or web address]. We will determine if the minh meets the technical requirements to connect to [facility] and assure the security of your private health information. Medication Information REJI RAYMUNDOER has been given the following medication information: No Discharge Medications. Understanding your home medicine is important to keeping you healthy. If you are taking medications that are not on the preceding list, please call your doctor to see if you are to continue that medication. It is important that you do not skip or make up doses. If you are ordered an antibiotic, finish taking all the medicine, unless your doctor tells you otherwise. Call your doctor if you have questions or problems. Take the medicine list with you to all follow up appointments. If you or a loved one is struggling with a mental health or substance abuse issue, please call [facility] at [phone] or the National Suicide Prevention Lifeline at . BREANNE Rubio TYLER, have received the follow-up provider(s) list, medication information and patient education materials/instructio ns and have verbalized understanding. Patient Signature Date Time Provider Signature Date Time Normal [facility] ED Physician Reporton 2024 ED Physician Report BREANNEDARIN :1995 Registration Date:10/29/2024 Basic Information CC of Suicidal thoughts History of Present Illness Patient presents with feelings of depression and thoughts of suicide. He says he believes he has been depressed for a while. He feels worthless. He says he feels like his family thinks he is undeserving. He is required to have supervised visits with his oldest child although he does not feel like he has done anything wrong. Yesterday evening he thought about driving his car into a telephone pole at a high speed. He says his plan today would be to take something like penicillin which he is severely allergic to and then let himself past. He has not attempted suicide in the past. He is not currently on medication. He does see a counselor. Physical Exam Vitals & Measurements Initial: T: 36.7 ?C (Oral) HR: 120 (Peripheral) BP: 153/ 110 RR: 18 SpO2: 96% General: Awake, alert, no acute distress. Well developed, appears stated age. Skin: Warm, dry. Appropriate color for ethnicity. Head: Normocephalic and atraumatic. Hair is of normal texture. Respiratory: The chest wall is symmetric. No signs of respiratory distress. Musculoskeletal: Upper and lower extremities are without deformity or swelling. Neurological: Awake, alert, normal speech. Psychiatric: tearful Medical Decision Making Medically cleared for psychiatric admission. Reexamination/Reeval uation Patient will be admitted to [place] for suicidal thoughts and feelings of depression. Dr. Serrano has accepted. Systolic Blood Pressure: 153 mmHg High Diastolic Blood Pressure: 110 mmHg High Temperature Oral: 36.7 degC Respiratory Rate: 18 br/min SpO2: 96 % Peripheral Pulse Rate: 120 bpm High Discharge/Plan *Discharge Disposition NO DISCHARGE DISPOSITION DOCUMENTED Assessment This Visit Diagnosis Depression F32.A Verbalizes suicidal thoughts R45.851 Orders: ALCOHOL, STAT, 10/29/2024 17:16:00 EST BRED Request for Bed Placement, 10/29/2024 19:55:00 EST, MÓNICA SERRANO MD, [facility] [place], Admit as Inpatient CBCWD(CBC WITH DIFF), STAT, 10/29/2024 17:16:00 EST COMPMETA(CMP), STAT, 10/29/2024 17:16:00 EST COVID-19 Molecular BRED, STAT, 10/29/2024 17:16:00 EST, Specimen type: HEMATOLOGY TECHNICIAN Swab EKG, 10/29/2024 17:16:00 EST, Other Reason, Cart, Heart Meds Unknown at this time, PRERNA, No EKG/[place] Requested Level of Care Order, 10/29/2024, Mental Health/Psych Admit as Inpatient, GREGORY MD, MÓNICA, Reg - no need to update OAK or LEIA Resuscitation Status, Resuscitation Status: Full Code, Discussed With: Patient, 10/29/2024 Transfer Care of Patient to Attending, 10/29/2024, Upon discharge from the ED, all continued medications and orders become the responsibility of the admitting/attending physician. U DOA(URINE TOX SCREEN), STAT, 10/29/2024 17:16:00 EST, Specimen type: Urine UA, STAT, 10/29/2024 17:16:00 EST Medication Administration Administered: Medications: nicotine, 21 mg, Transderm (10/29/2024 19:17 EST) Medication Reconciliation Unchanged azithromycin (Zithromax 250 mg oral tablet)1 Tabs Oral DAILY for 7 Days. Refills: 0. Allergies penicillins Lab Results Chemistry LATEST RESULTS BUN 10/29/24 17:17 19 Na 10/29/24 17:17 144 K 10/29/24 17:17 4.0 Chloride 10/29/24 17:17 106 CO2, venous 10/29/24 17:17 26.5 Glucose 10/29/24 17:17 168 High Creatinine 10/29/24 17:17 2.0 High Estimated Creatinine Clearance 10/29/24 18:07 55.71 Total Protein 10/29/24 17:17 7.1 Calcium 10/29/24 17:17 8.8 Bilirubin, Total 10/29/24 17:17 0.30 Alk Phos 10/29/24 17:17 137 High GOT 10/29/24 17:17 15 GPT 10/29/24 17:17 25 BUN/Creat Ratio 10/29/24 17:17 9.5 Calculated Osmolality 10/29/24 17:17 293 Globulin 10/29/24 17:17 4.1 A/G Ratio 10/29/24 17:17 0.7 ALB 10/29/24 17:17 3.0 Low Alcohol 10/29/24 17:17 <3 GFR Estimated 10/29/24 17:17 40 Hematology LATEST RESULTS WBC 10/29/24 17:17 11.9 High RBC 10/29/24 17:17 5.28 HGB 10/29/24 17:17 17.2 HCT 10/29/24 17:17 50.2 MCV 10/29/24 17:17 95.1 MCH 10/29/24 17:17 32.6 MCHC 10/29/24 17:17 34.3 RDW 10/29/24 17:17 13.2 Platelet 10/29/24 17:17 272 MPV 10/29/24 17:17 8.1 Nucleated RBC 10/29/24 17:17 0 Lymph % 10/29/24 17:17 18.8 [place] % 10/29/24 17:17 4.7 Neutrophil % 10/29/24 17:17 73.8 Eosin % 10/29/24 17:17 1.5 Basos % 10/29/24 17:17 1.2 Lymph Count 10/29/24 17:17 2.20 [place] Count 10/29/24 17:17 0.60 Neutrophil Count (ANC) 10/29/24 17:17 8.80 Eos Count 10/29/24 17:17 0.20 Baso Count 10/29/24 17:17 0.10 Immunology LATEST RESULTS COVID-19 Molecular BRED 10/29/24 17:17 Negative Urine Analysis LATEST RESULTS Color, U 10/29/24 17:17 Yellow Appearance, U 10/29/24 (more content not included)... Normal [facility] ED Progress Noteon ED Progress Note Pt. alert and oriented presents with suicidal ideations due to environmental factors. No attempts. States frequent pot use since the age of 14. Denies physical complaints. Spoke with Yahir at [facility] , due to patient having no insurance and being a resident in [facility]. AP on-call transition social worker to call back. Pt. resting quietly and in no distress. Awaiting news from [facility]. 1900 Assumed care of patient. A & O x3. Safety maintained. Patient provided water at this time, declines food or snack. 0 Patient medicated per EMAR, denies questions or concerns. 200 Report given to Charo at [facility]. Patient going to N4. Received approval from [facility]. 2029 No changes in assessment. 2129 Patient resting in position of comfort with call light within reach. Safety maintained. Respirations even and unlabored, no acute distress. 2135 Report given to physician ambulance. Normal [facility] ED Triage JOURNEYMAN PRESS OPERATOR - [facility] 10-29 ED Triage JOURNEYMAN PRESS OPERATOR - Text ED Triage JOURNEYMAN PRESS OPERATOR Entered On: 10/29/2024 17:15 EST Performed On: 10/29/2024 17:14 EST by Jeet Weinberg RN Triage Temperature Oral : 36.7 degC(Converted to: 98.1 degF) Systolic Blood Pressure : 153 mmHg (HI) Diastolic Blood Pressure : 110 mmHg (HI) Heart Rate : 120 bpm (HI) Respiratory Rate : 18 br/min Oxygen Saturation : 96 % ED Document Sepsis Screening : Document Sepsis Screening ED Document Reason for Visit : Document Reason for Visit Scale Type : Patient Stated Weight Patient Stated Weight : 138 kg(Converted to: 304 lb 4 oz) Height/Length Dosing : 177 cm(Converted to: 5 ft 10 in) Pain Symptoms : No Jeet Weinberg RN - 10/29/2024 17:14 EST (As Of: 10/29/2024 17:15:39 EST) Problems(Active) Knowledge deficit (SNOMED CT :9233480533 ) Name of Problem: Knowledge deficit ; Recorder: SYSTEM; Confirmation: Confirmed ; Classification: Nursing ; Code: [id number] ; Last Updated: 12/06/2013 18:01 EST ; Life Cycle Date: 03/07/2012 ; Life Cycle Status: Active ; Vocabulary: SNOMED CT ; Comments: 03/07/2012 2:11 - SYSTEM Problem added automatically by system based on learning needs addressed on emergency department admission. Diagnoses(Active) Psychiatric problem Date: 10/29/2024 ; Diagnosis Type: Reason For Visit ; Confirmation: Confirmed ; Clinical Dx: Psychiatric problem ; Classification: Medical ; Clinical Service: Non-Specified ; Code: PNED ; Probability: 0 ; Diagnosis Code: [id number] Reason for Visit (As Of: 10/29/2024 17:15:40 EST) Problems(Active) Knowledge deficit (SNOMED CT :8473577953 ) Name of Problem: Knowledge deficit ; Recorder: SYSTEM; Confirmation: Confirmed ; Classification: Nursing ; Code: [id number] ; Last Updated: 12/06/2013 18:01 EST ; Life Cycle Date: 03/07/2012 ; Life Cycle Status: Active ; Vocabulary: SNOMED CT ; Comments: 03/07/2012 2:11 - SYSTEM Problem added automatically by system based on learning needs addressed on emergency department admission. Diagnoses(Active) Psychiatric problem Date: 10/29/2024 ; Diagnosis Type: Reason For Visit ; Confirmation: Confirmed ; Clinical Dx: Psychiatric problem ; Classification: Medical ; Clinical Service: Non-Specified ; Code: PNED ; Probability: 0 ; Diagnosis Code: [id number] Sepsis Screening Sepsis Vitals Screening ED : None/ NA(Peds) Sultana BRIGGS, Jeet Jacobs - 10/29/2024 17:14 EST Normal [facility] HEMOon 10-29-2024 DIFF? No Normal [facility] Comment on above: Performed By: #### 1 [id number], [id number], [id number], [id number] #### [facility] [address] [place], [place] [id number] Transplant Immunologist: Junior Little MD Erythrocyte distribution width (RBC) [Ratio] 13.2 % Normal 11.5-14.5 [facility] Comment on above: Performed By: #### 1 38116, [id number], 753575, 685039 #### [facility] [address] [place], [place] [address] Transplant Immunologist: Junior Little MD Hematocrit (Bld) [Volume fraction] 50.2 % Normal 41.0-52.0 [facility] Comment on above: Performed By: #### 1 76343, [id number], 230346, 078036 #### [facility] [address] [place], [place] [address] Transplant Immunologist: Junior Little MD Hemoglobin (Bld) [Mass/Vol] 17.2 g/dL Normal 13.5-17.5 [facility] Comment on above: Performed By: #### 1 02690, [id number], 405623, [id number] #### [facility] [address] [place] [address] 150[address] Transplant Immunologist: Junior Little MD Instr WBC 11.9 Normal [facility] Comment on above: Performed By: #### 1 02151, [id number], 390325, [id number] #### [facility] [address] [place] [address] 00890 Transplant Immunologist: Junior Little MD MCH (RBC) [Entitic mass] 32.6 pg Normal 27.0-34.0 [facility] Comment on above: Performed By: #### 1 96976, [id number], 309410, 848517 #### [facility] [address] [place] [address] 13787 Transplant Immunologist: Junior Little MD MCHC (RBC) [Mass/Vol] 34.3 g/dL Normal 32.0-37.0 [facility] Comment on above: Performed By: #### 1 75853, [id number], 937989, 931514 #### [facility] [address] [place] [address] 91423 Transplant Immunologist: Junior Little MD MCV (RBC) [Entitic vol] 95.1 fL Normal 80.0-100.0 [facility] Comment on above: Performed By: #### 1 22814, [id number], 783782, 248409 #### [facility] [address] [place] [address] 79942 Transplant Immunologist: Junior Little MD Nucleated RBC 0 /100WBC Normal [facility] Comment on above: Performed By: #### 1 87078, [id number], 651207, 339684 #### [facility] [address] [place] [address] 86814 Transplant Immunologist: Junior Little MD Platelet 272 x10 Normal 150-450 [facility] Comment on above: Performed By: #### 1 54147, 4686462, 287948, 105726 #### [facility] [address] [place] [address] Transplant Immunologist: Junior Little MD Platelet mean volume (Bld) [Entitic vol] 8.1 fL Normal 7.4-10.4 [facility] Comment on above: Performed By: #### 1 34014, [id number], 683758, 377887 #### [facility] [address] [place] [address] 72461 Transplant Immunologist: Junior Little MD RBC 5.28 x10 Normal 4.70-6.10 [facility] Comment on above: Result Comment: Note : RBC morphology is normal unless otherwise stated. Evaluation performed only if differential is requested. Performed By: #### 1 44881, [id number], 239607, 874009 #### [facility] [address] [place] [address] 83148 Transplant Immunologist: Junior Little MD WBC 11.9 x10 High 4.5-11.0 [facility] Comment on above: Performed By: #### 1 29388, [id number], 016833, 518351 #### [facility] [address] [place] [address] 01940 Transplant Immunologist: Junior Little MD U DOAon 10-29-2024 Amphetamines, U Negative Normal [facility] Comment on above: Performed By: #### 1 69473 #### [facility] [address] [place] [address] 75896 Transplant Immunologist: Junior Little MD Barbituates, U Negative Normal [facility] Comment on above: Performed By: #### 1 33289 #### [facility] [address] [place] [address] 30205 Transplant Immunologist: Junior Little MD Benzodiazepines, U Negative Normal [facility] Comment on above: Performed By: #### 1 54001 #### [facility] [address] [place] [address] 68159 Transplant Immunologist: Junior Little MD Cocaine, U Negative Normal [facility] Comment on above: Performed By: #### 1 40149 #### [facility] [address] [place] [address] 28330 Transplant Immunologist: Junior Little MD Ecstasy, U Negative Normal [facility] Comment on above: Performed By: #### 1 01682 #### [facility] [address] [place] [address] 24094 Transplant Immunologist: Junior Little MD Opiates, U Negative Normal [facility] Comment on above: Performed By: #### 1 28957 #### [facility] [address] [place] [address] 91041 Transplant Immunologist: Junior Little MD PCP, U Negative Normal [facility] Comment on above: Performed By: #### 1 08259 #### [facility] [address] [place], [place] [address] Transplant Immunologist: Junior Little MD THC, U Positive Normal [facility] Comment on above: Performed By: #### 1 10533 #### [facility] [address] [place] [address] 82420 Transplant Immunologist: Junior Little MD UAon 10-29-2024 Appearance, U Clear Normal [facility] Comment on above: Performed By: #### 1 10845 #### [facility] [address] [place] [address] 87547 Transplant Immunologist: Junior Little MD Bacteria, U Occasional Normal [facility] Comment on above: Performed By: #### 1 35065 #### [facility] [address] [place] [address] 16854 Transplant Immunologist: Junior Little MD Bilirubin, U Negative Normal [facility] Comment on above: Result Comment: Bili wilkerson, U: Initial positive urine bilirubin results are not confirmed. Interfering substances may include elevated urobilinogen. Trace = 0.5-1.0 mg/dL Small = 2.0-4.0 mg/dL Moderate = 6.0-8.0 mg/dL Large = 10 mg/dl and greater Performed By: #### 1 55931 #### [facility] [address] [place], [place] [address] Transplant Immunologist: Junior Little MD Blood, U Small Abnormal Negative [facility] Comment on above: Result Comment: Bloo d, U: Trace = 0.03-0.05 mg/dL Small = 0.06-0.1 mg/dL Moderate = 0.2-0.5 mg/dL Large = 1.0 mg/dL and greater Performed By: #### 1 73206 #### [facility] [address] [place] [address] Transplant Immunologist: Junior Little MD Color, U Yellow Normal [facility] Comment on above: Performed By: #### 1 60362 #### [facility] [address] [place] [address] Transplant Immunologist: Junior Little MD Glucose Qual, U Negative Normal Negative [facility] Comment on above: Performed By: #### 1 70783 #### [facility] [address] [place] [address] Transplant Immunologist: Junior Little MD Ketones, U Negative Normal Negative [facility] Comment on above: Performed By: #### 1 86978 #### [facility] [address] [place], [place] [address] Transplant Immunologist: Junior Little MD Leukocyte Esterase, U Negative Normal Negative [facility] Comment on above: Result Comment: Leuk ocyte Esterase, U: Trace = 25 Ara/uL Small = 75 Ara/uL Moderate = 250 Ara/uL Large = 500 Ara/uL and greater Performed By: #### 1 65608 #### [facility] [address] [place] [address] 21948 Transplant Immunologist: Junior Little MD Mucous, U Occasional Normal [facility] Comment on above: Performed By: #### 1 03977 #### [facility] [address] [place] [address] 57152 Transplant Immunologist: Junior Little MD Nitrite, U Negative Normal Negative [facility] Comment on above: Performed By: #### 1 17501 #### [facility] [address] [place] [address] 26519 Transplant Immunologist: Junior Little MD pH, U 6.0 Normal 4.5-8.0 [facility] Comment on above: Performed By: #### 1 86197 #### [facility] [address] [place], [place] [address] Transplant Immunologist: Junior Little MD Protein, U >=300 mg/dl Abnormal Negative [facility] Comment on above: Performed By: #### 1 70779 #### [facility] [address] [place] [address] Transplant Immunologist: Junior Little MD RBC/HPF, U 4 #/HPF High 0-3 [facility] Comment on above: Performed By: #### 1 98138 #### [facility] [address] [place], [place] [address] Transplant Immunologist: Junior Little MD Specific [place], U S>=1.030 Normal 1.001-1.035 [facility] Comment on above: Performed By: #### 1 40108 #### [facility] [address] [place], [place] [address] Transplant Immunologist: Junior Little MD U MICRO Indicated Normal [facility] Comment on above: Performed By: #### 1 45544 #### [facility] [address] [place], [place] [address] Transplant Immunologist: Junior Little MD Urobilinogen Qual, U 1.0 EU/dl Normal 0.1-1.0 mg/[facility] Comment on above: Result Comment: Urob ilinogen, U: EU/dl and mg/dl are equivalent units. Performed By: #### 1 25636 #### [facility] [address] [place], [place] [id number] Transplant Immunologist: Junior Little MD WBC/HPF, U 4 #/HPF Normal 0-5 [facility] Comment on above: Performed By: #### 1 31360 #### [facility] [address] [place] [address] Transplant Immunologist: Junior Little MD CNOVon 03-10-2024 CNOV Office Visit (UCWSTR) DARIN RAYMUNDO ([id number]) 1995 Date Time Provider Department 03/10/24 11:45 AM J[facility]IER [facility]ICE [facility] During your visit today, we recorded the following information about you: Temperature Pulse Respiration Blood pressure 97 degrees 68/minute 22/minute 143/94 Weight 143 kg Javier Justice APRN.GENERAL ADMINISTRATOR 03/10/2024 1:15 PM Signed This note was created using [employer]. Subjective Darin J Breanne is a 28 year old male. 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 Has used Ibuprofen The history is provided by the patient. No awnings mechanic was used. Pain (foot) Pain location: right great toe. This is a new problem. Episode onset: 2 days ago. There has been no history of extremity trauma. The problem occurs constantly. The problem has been unchanged. The quality of the pain is described as aching and sharp. The pain is at a severity of 6/10. The pain is moderate. Associated symptoms include joint swelling. Pertinent negatives include no fever, inability to bear weight, itching, joint locking, limited range of motion, numbness or stiffness. The symptoms are aggravated by activity. He has tried NSAIDS for the symptoms. The treatment provided no relief. Family history includes gout. Family history does not include rheumatoid arthritis. His past medical history is significant for gout. There is no history of diabetes, osteoarthritis or rheumatoid arthritis. PAST MEDICAL HISTORY Diagnosis Date Right lower quadrant pain 03/05/14 PAST SURGICAL HISTORY Procedure Laterality Date LAPAROSCOPIC APPENDECTOMY 03/05/14 ALLERGIES Penicillins MEDICATIONS predniSONE (DELTASONE) 10 mg tablet Take 4 tabs daily for 3 days, then 2 tabs daily for 3 days, then 1 tab daily for 3 days with food. Amphetamine-Dextroam phetamine (ADDERALL) 30 mg tablet Take 30 mg by mouth once daily. (Patient not taking: Reported on 10/20/2023) ondansetron orally disintegrating (ZOFRAN ODT) 4 mg disintegrating tablet Take 1 tablet by mouth every 4 hours as needed for Nausea/Vomiting. (Patient not taking: Reported on 10/20/2023) No family history on file. Social History Tobacco Use Smoking status: Every Day Packs/day: .5 Types: Cigarettes Substance Use Topics Alcohol use: Yes Comment: weekly Drug use: Yes Types: Marijuana Review of Systems Constitutional: Negative for activity change, appetite change, chills, diaphoresis, fatigue and fever. Respiratory: Negative for apnea, cough, choking and chest tightness. Cardiovascular: Negative for chest pain, palpitations and leg swelling. Gastrointestinal: Negative for abdominal pain, diarrhea, nausea and vomiting. Musculoskeletal: Positive for gout. Negative for stiffness. Right great toe +pain +redness Skin: Negative for color change, itching and pallor. Allergic/Immunologic : Negative for environmental allergies, food allergies and immunocompromised state. Neurological: Negative for dizziness, facial asymmetry, light-headedness, numbness and headaches. Hematological: Negative for adenopathy. Does not bruise/bleed easily. Psychiatric/Behavior al: Negative for agitation and behavioral problems. Objective BP 143/94 Pulse 68 Temp 36.1 ?C (97 ?F) Resp 22 Wt (!) 143 kg (315 lb 4.1 oz) SpO2 97% Physical Exam Vitals and nursing note reviewed. Constitutional: General: He is not in acute distress. Appearance: Normal appearance. He is not ill-appearing, toxic-appearing or diaphoretic. HENT: Head: Normocephalic and atraumatic. Right Ear: External ear normal. Left Ear: External ear normal. Nose: Nose normal. No congestion or rhinorrhea. Mouth/Throat: Mouth: Mucous membranes are moist. Pharynx: Oropharynx is clear. No oropharyngeal exudate or posterior oropharyngeal erythema. Eyes: General: Right eye: No discharge. Left eye: No discharge. Extraocular Movements: Extraocular movements intact. Conjunctiva/sclera: Conjunctivae normal. Pupils: Pupils are equal, round, and reactive to light. Cardiovascular: Rate and Rhythm: Normal rate and regular rhythm. Pulses: Normal pulses. Heart sounds: Normal heart sounds. No murmur heard. No friction rub. No gallop. Pulmonary: Effort: Pulmonary effort is normal. No respiratory distress. Breath sounds: Normal breath sounds. No stridor. No wheezing, rhonchi or rales. Chest: Chest wall: No tenderness. Abdominal: General: Abdomen is flat. There is no distension. Palpations: Abdomen is soft. There is no mass. Tenderness: There is no abdominal tenderness. There is no guarding or rebound. Hernia: No hernia is present. M (more content not included)... Normal [facility] CNOVon 10-20-2023 CNOV Office Visit (WSTR) DARIN RAYMUNDO ([id number]) 1995 M Date Time Provider Department 10/20/23 2:45 PM ANGEL FRIED [facility] During your visit today, we recorded the following information about you: Temperature Pulse Respiration Blood pressure 98.4 degrees 108/minute 16/minute 180/108 Weight 138.1 kg Angel Fried PA-C 10/20/2023 4:25 PM Signed This note was created using [employer]. Subjective Darinbalta Paulina is a 27 year old male. HPI Presents with a chief complaint of cough congestion fever body aches for 3 days. He tested positive for COVID at home today. His family members also tested positive. He does have a history of chronic hypertension that is not treated. He also has a history of chronic kidney disease. Does not currently have a primary doctor. Also has a history of asthma. States he has lost his smell and taste. No chest pain. He has had COVID before. Not vaccinated for COVID. He came in as he wanted a work note. Review of Systems Constitutional: Positive for fatigue and fever. HENT: Positive for congestion and sore throat. Negative for ear pain. Respiratory: Positive for cough and shortness of breath. Negative for wheezing. Cardiovascular: Negative. Gastrointestinal: Negative. Genitourinary: Negative. Musculoskeletal: Positive for myalgias. Skin: Negative. Neurological: Positive for headaches. All other systems reviewed and are negative. PAST MEDICAL HISTORY Diagnosis Date Right lower quadrant pain 03/05/14 Current Outpatient Medications Medication Sig Dispense Refill Amphetamine-Dextroam phetamine (ADDERALL) 30 mg tablet Take 30 mg by mouth once daily. (Patient not taking: Reported on 10/20/2023) ondansetron orally disintegrating (ZOFRAN ODT) 4 mg disintegrating tablet Take 1 tablet by mouth every 4 hours as needed for Nausea/Vomiting. (Patient not taking: Reported on 10/20/2023) 8 tablet 0 No current facility-administere d medications for this visit. PAST SURGICAL HISTORY Procedure Laterality Date LAPAROSCOPIC APPENDECTOMY 03/05/14 No family history on file. Social History Tobacco Use Smoking status: Every Day Packs/day: .5 Types: Cigarettes Substance Use Topics Alcohol use: Yes Comment: weekly Drug use: Yes Types: Marijuana Objective BP 180/108 Pulse 108 Temp 36.9 ?C (98.4 ?F) (Tympanic) Resp 16 Wt (!) 138.1 kg (304 lb 6.4 oz) SpO2 97% Physical Exam Vitals reviewed. Constitutional: Appearance: Normal appearance. HENT: Head: Normocephalic and atraumatic. Right Ear: Tympanic membrane, ear canal and external ear normal. Left Ear: Tympanic membrane, ear canal and external ear normal. Nose: Congestion present. Mouth/Throat: Mouth: Mucous membranes are moist. Pharynx: Oropharynx is clear. Cardiovascular: Rate and Rhythm: Normal rate and regular rhythm. Heart sounds: Normal heart sounds. Pulmonary: Effort: Pulmonary effort is normal. Breath sounds: Normal breath sounds. Musculoskeletal: Cervical back: Neck supple. Skin: General: Skin is warm and dry. Findings: No rash. Neurological: Mental Status: He is alert. Assessment and Plan ASSESSMENT/PLAN: 1. COVID-19 - ICD9: 079.89, ICD10: U07.1 (primary diagnosis) Patient was not interested in oral antiviral treatment. He states he came in as he needed a work note. This was provided. 2. Hypertension, unspecified type - ICD9: 401.9, ICD10: I10 I Did discuss with patient that he should establish with a primary care to address his hypertension. He states he has had high blood pressure since he was a child. At 1 point was on blood pressure medication but has not had a doctor in several years. Discussed the ramifications of untreated hypertension including stroke, heart attack, kidney disease, blindness, and other chronic issues. Patient voiced understanding. He does not have any acute symptoms of hypertension today. Angel Fried PA-C Allergies As of Date: 10/20/2023 Noted Allergy Reaction PENICILLINS 08/19/2015 4 - Hives Date Reviewed: 10/20/2023 Reviewed by: Dorita Coleman LPN - Fully Assessed Reason for Visit: Cough [28] Cmt: Cough, fever, SOB and no smell or taste x 3 days Primary Visit Diagnosis:COVID-19 [U07.1] Other Visit Diagnosis:Hypertensi on, unspecified type [I10] Prescriptions as of 10/20/2023 - Amphetamine-Dextroam phetamine (ADDERALL) 30 mg tablet Take 30 mg by mouth once daily. - ondansetron orally disintegrating (ZOFRAN ODT) 4 mg disintegrating tablet Take 1 tablet by mouth every 4 hours as needed for Nausea/Vomiting. Problem List As Of Date: 10/20/2023 (None) Letter Text Encounter Status:Closed by ANGEL FRIED on 10/20/23 Normal [facility] Absolute lymphocyte countOrd ered By: Valeriy Mercer on 10-12-2023 Lymphocytes Auto (Unsp spec) [#/Vol] 1.99 10*3/uL 0.83-4.51 [facility] Basophil percentageOrdered B y: Valeriy Whiteo on 10-12-2023 Basophils/100 WBC (Bld) 0.5 % 0-1 [facility] Chloride [Moles/Vol] 109 mmol/L 98-107 [facility] [place] Eosinophils/100 WBC (Bld) 1.0 % 0-5 [facility] Glucose [Mass/Vol] 99 mg/dL 74-106 [facility] [place] Neutrophils (Bld) [#/Vol] 11.1 10*3/uL 2.0-7.7 [facility] Neutrophils/100 WBC (Bld) 77.9 % 47-70 [facility] Potassium [Moles/Vol] 3.8 mmol/L 3.5-5.1 [facility] Sodium [Moles/Vol] 140 mmol/L 136-145 [facility] [place] WBC (Bld) [#/Vol] 14.2 10*3/uL 4.4-11.0 [facility] Blood erythrocytes count (nu mber/volume)Ordered By: Valeriy Mercer on 10-12-2023 RBC (Bld) [#/Vol] 4.94 10*6/uL 4.6-6.2 [facility] Blood hemoglobin measurement (mass/volume)Ordered By: Valeriy Mercer on 10-12-2023 Hemoglobin (Bld) [Mass/Vol] 15.7 g/dL 13.0-16.5 [facility] Blood lymphocytes/100 leukoc ytesOrdered By: Valeriy Mercer on 10-12-2023 Lymphocytes/100 WBC (Bld) 14.1 % 19-41 [facility] Blood monocytes/100 leukocyt esOrdered By: Valeriysymone Mercer on 10-12-2023 Monocytes/100 WBC (Bld) 5.9 % 0-10 [facility] Blood platelet mean volumeOr dered By: Valeriy Mercer on 10-12-2023 Platelet mean volume (Bld) [Entitic vol] 9.7 fL 6.2-12.0 [facility] Determination of erythrocyte mean corpuscular volume (MCV)Ordered By: Valeriy Mercer on 10-12-2023 MCV (RBC) [Entitic vol] 94.3 fL 80-94 [facility] Hematocrit Auto (Bld) [Volum e fraction]Ordered By: [facility] on 10-12-2023 Hematocrit (Bld) [Volume fraction] 46.6 % 40-54 [facility] Influenza virus A and B and SARS-CoV-2 (COVID-19) Ag panel - Upper respiratory specimOrdered By: [facility] on 10-12-2023 SARS-CoV-2 (COVID-19) RNA HUE+probe Ql (Resp) [facility] Laboratory - Chemistry and C hemistry - challengeOrdered By: [facility] on 10-12-2023 CO2 [Moles/Vol] 26.0 mmol/L 21.0-32.0 [facility] Urea nitrogen/Creatinine [Mass ratio] 12.5 mg/mg 10-20 [facility] Laboratory - Hematology and Cell countsOrdered By: [facility] on 10-12-2023 Erythrocyte distribution width (RBC) [Entitic vol] 39.5 fL 35.1-43.9 [facility] Erythrocyte distribution width (RBC) [Ratio] 11.4 % 11.6-14.6 [facility] Immature granulocytes/100 WBC (Bld) 0.600 % 0.0-0.9 [facility] Comment on above: IG% - Immature Granu locytes (promyelocytes, myelocytes and metamyelocytes) > 1% indicates that a LEFT SHIFT is Present. MCH (RBC) [Entitic mass] 31.8 pg 27.0-32.0 [facility] Nucleated RBC/100 WBC (Bld) [Ratio] 0 % 0-5 [facility] MCHC Auto (RBC) [Mass/Vol]Or dered By: [facility] on 10-12-2023 MCHC (RBC) [Mass/Vol] 33.7 g/dL 32-36 [facility] No Panel InformationOrdered By: [facility] on 10-12-2023 Estimated Creatinine Clearance Calc 62.27 ml/min [facility] Estimated GFR (MDRD) Amer 57 mL/min >60 [facility] Comment on above: GFR Calc Estimated GFR (MDRD) Non-Af Amer 47 mL/min >60 [facility] Comment on above: Non- GFR Calc Platelets bldOrdered By: Valeriy Mercer on 10-12-2023 Platelets (Bld) [#/Vol] 248 10*3/uL 150-450 [facility] Serum or plasma calcium khanh urement (mass/volume)Ordered By: Valeriy Mercer on 10-12-2023 Calcium [Mass/Vol] 9.3 mg/dL 8.5-10.1 [facility] Serum or plasma creatinine m easurement (mass/volume)Ordered By: Valeriy Mercer on 10-12-2023 Creatinine [Mass/Vol] 1.84 mg/dL 0.70-1.30 [facility] Comment on above: The validity of the calculated GFR & GFRAA in patients over 70 years has not been determined. Clinical correlation is essential. Serum or plasma urea nitroge n measurement (mass/volume)Ordered By: Valeriy Mercer on 10-12-2023 Urea nitrogen [Mass/Vol] 23 mg/dL 7-18 [facility] Thin prep Papanicolaou smear with manual screeningOrdered By: Valeriy Mercer on 10-12-2023 Thin prep Papanicolaou smear with manual screening 5 5-15 [facility] CNOVon 06-14-2023 CNOV Office Visit (UCWSTR) DARIN RAYMUNDO ([id number]) 1995 Date Time Provider Department 06/14/23 1:30 PM MIGUE SAMANO [facility] During your visit today, we recorded the following information about you: Temperature Pulse Respiration Blood pressure 97.8 degrees 88/minute 16/minute 152/88 Weight 129.7 kg Migue Samano APRN.GENERAL ADMINISTRATOR 06/14/2023 1:31 PM Signed ASSESSMENT/PLAN: 1. Visit for suture removal - ICD9: V58.32, ICD10: Z48.02 - 8 sutures removed. One suture has a short tail piece of suture remaining beneath scab. Patient advised to do warm compresses to this area and the scab will loosen and peel off, taking remaining piece of suture with it. He verbalized understanding. Migue Samano APRN.Migue Lees APRN.CNP 06/19/2023 3:08 PM Addendum Subjective Suture Removal Darin Raymundo is a 27 year old male who presents with need for suture removal. He has 8 sutures that were placed in his right thigh in the emergency room 2 weeks ago. He denies pain or symptoms. Review of Systems Constitutional: Negative for chills and fever. Musculoskeletal: Negative for myalgias. Skin: Negative for itching and rash. BP 152/88 Pulse 88 Temp 36.6 ?C (97.8 ?F) Resp 16 Wt 129.7 kg (286 lb) SpO2 98% PAST MEDICAL HISTORY Diagnosis Date - Right lower quadrant pain 03/05/14 PAST SURGICAL HISTORY Procedure Laterality Date - LAPAROSCOPIC APPENDECTOMY 03/05/14 ALLERGIES Penicillins MEDICATIONS - Amphetamine-Dextroam phetamine (ADDERALL) 30 mg tablet Take 30 mg by mouth once daily. - ondansetron orally disintegrating (ZOFRAN ODT) 4 mg disintegrating tablet Take 1 tablet by mouth every 4 hours as needed for Nausea/Vomiting. No family history on file. Social History Tobacco Use - Smoking status: Every Day Packs/day: .5 Types: Cigarettes Substance Use Topics - Alcohol use: Yes Comment: weekly - Drug use: Yes Types: Marijuana Objective Physical Exam Vitals and nursing note reviewed. Constitutional: General: He is not in acute distress. Appearance: Normal appearance. He is not ill-appearing. Skin: General: Skin is warm and dry. Capillary Refill: Capillary refill takes less than 2 seconds. Findings: Erythema (healing laceration with slight erythema at suture line consisted with wound healing) present. No rash. Neurological: Mental Status: He is alert. ASSESSMENT/PLAN: 1. Visit for suture removal - ICD9: V58.32, ICD10: Z48.02 - 8 sutures removed. One suture has a short tail piece of suture remaining beneath scab. Patient advised to do warm compresses to this area and the scab will loosen and peel off, taking remaining piece of suture with it. He verbalized understanding. Migue Samano APRN.GENERAL ADMINISTRATOR Referring Provider: SELF [200] Allergies As of Date: 06/14/2023 Noted Allergy Reaction PENICILLINS 08/19/2015 4 - Hives Date Reviewed: 06/14/2023 Reviewed by: Julieta London - Fully Assessed Reason for Visit: Suture Removal [105] Cmt: right thigh x +2 weeks, ?8 sutures Primary Visit Diagnosis:Visit for suture removal [Z48.02] Prescriptions as of 06/19/2023 - Amphetamine-Dextroam phetamine (ADDERALL) 30 mg tablet Take 30 mg by mouth once daily. - ondansetron orally disintegrating (ZOFRAN ODT) 4 mg disintegrating tablet Take 1 tablet by mouth every 4 hours as needed for Nausea/Vomiting. Problem List As Of Date: 06/14/2023 (None) Other instructions from your clinician: ASSESSMENT/PLAN: 1. Visit for suture removal - ICD9: V58.32, ICD10: Z48.02 - 8 sutures removed. One suture has a short tail piece of suture remaining beneath scab. Patient advised to do warm compresses to this area and the scab will loosen and peel off, taking remaining piece of suture with it. He verbalized understanding. Migue Samano APRN.GENERAL ADMINISTRATOR Encounter Status:Closed by MIGUE SAMANO on 06/14/23 Normal [facility] Absolute lymphocyte countOrd ered By: Dr. Winkler on 03-08-2023 Lymphocytes Auto (Unsp spec) [#/Vol] 2.05 10*3/uL 0.83-4.51 [facility] Basophil percentageOrdered B y: Dr. Winkler on 03-08-2023 Basophils/100 WBC (Bld) 0.6 % 0-1 [facility] Chloride [Moles/Vol] 110 mmol/L 98-107 [facility] Eosinophils/100 WBC (Bld) 2.1 % 0-5 [facility] Glucose [Mass/Vol] 143 mg/dL 74-106 [facility] Comment on above: Fasting Glucose resu lt greater than or equal to 126 mg/dL suggests DIABETES MELLITUS per A.D.A. criteria. Neutrophils (Bld) [#/Vol] 7.3 10*3/uL 2.0-7.7 [facility] Neutrophils/100 WBC (Bld) 69.1 % 47-70 [facility] Potassium [Moles/Vol] 4.2 mmol/L 3.5-5.1 [facility] Sodium [Moles/Vol] 143 mmol/L 136-145 [facility] WBC (Bld) [#/Vol] 10.6 10*3/uL 4.4-11.0 [facility] Blood erythrocytes count (nu mber/volume)Ordered By: Dr. Winkler on 03-08-2023 RBC (Bld) [#/Vol] 4.54 10*6/uL 4.6-6.2 [facility] Blood hemoglobin measurement (mass/volume)Ordered By: Dr. Winkler on 03-08-2023 Hemoglobin (Bld) [Mass/Vol] 14.8 g/dL 13.0-16.5 [facility] Blood lymphocytes/100 leukoc ytesOrdered By: Dr. Winkler on 03-08-2023 Lymphocytes/100 WBC (Bld) 19.4 % 19-41 [facility] Blood monocytes/100 leukocyt esOrdered By: Dr. Winkler on 03-08-2023 Monocytes/100 WBC (Bld) 8.3 % 0-10 [facility] Blood platelet mean volumeOr dered By: Dr. Winkler on 03-08-2023 Platelet mean volume (Bld) [Entitic vol] 10.1 fL 6.2-12.0 [facility] Determination of erythrocyte mean corpuscular volume (MCV)Ordered By: Dr. Winkler on 03-08-2023 MCV (RBC) [Entitic vol] 97.1 fL 80-94 [facility] Hematocrit Auto (Bld) [Volum e fraction]Ordered By: Dr. Winkler on 03-08-2023 Hematocrit (Bld) [Volume fraction] 44.1 % 40-54 [facility] Laboratory - Chemistry and C hemistry - challengeOrdered By: Dr. Winkler on 03-08-2023 CO2 [Moles/Vol] 27.0 mmol/L 21.0-32.0 [facility] Natriuretic peptide B (Bld) [Mass/Vol] 10.9 pg/mL 0-100 [facility] Urea nitrogen/Creatinine [Mass ratio] 15.7 mg/mg 10-20 [facility] Laboratory - Hematology and Cell countsOrdered By: Dr. Winkler on 03-08-2023 Erythrocyte distribution width (RBC) [Entitic vol] 42.8 fL 35.1-43.9 [facility] Erythrocyte distribution width (RBC) [Ratio] 11.9 % 11.6-14.6 [facility] Immature granulocytes/100 WBC (Bld) 0.500 % 0.0-0.9 [facility] Comment on above: IG% - Immature Granu locytes (promyelocytes, myelocytes and metamyelocytes) > 1% indicates that a LEFT SHIFT is Present. MCH (RBC) [Entitic mass] 32.6 pg 27.0-32.0 [facility] Nucleated RBC/100 WBC (Bld) [Ratio] 0 % 0-5 [facility] MCHC Auto (RBC) [Mass/Vol]Or dered By: Dr. Winkler on 03-08-2023 MCHC (RBC) [Mass/Vol] 33.6 g/dL 32-36 [facility] No Panel InformationOrdered By: Dr. Winkler on 03-08-2023 Troponin I High Sensitivity 8 pg/mL 3.0-78.0 [facility] Comment on above: Please Note: New Renetta t Units and Gender Specific Reference Ranges. For more information see Policy Stat Procedure [place] High Sensitivity Troponin (TNIH) and attachments. D-Dimer Quantitative (PE/DVT) 0.30 FEU/ug/m 0.27-0.49 [facility] Comment on above: NORMAL D-Dimer level (<0.50) indicates no DVT or PE. Estimated Creatinine Clearance Calc 69.02 ml/min [facility] Estimated GFR (MDRD) Amer 64 mL/min >60 [facility] Comment on above: GFR Calc Estimated GFR (MDRD) Non-Af Amer 53 mL/min >60 [facility] Comment on above: Non- GFR Calc Platelets bldOrdered By: Dr. Winkler on 03-08-2023 Platelets (Bld) [#/Vol] 205 10*3/uL 150-450 [facility] Serum or plasma calcium khanh urement (mass/volume)Ordered By: Dr. Winkler on 03-08-2023 Calcium [Mass/Vol] 8.6 mg/dL 8.5-10.1 [facility] Serum or plasma creatinine m easurement (mass/volume)Ordered By: Dr. Winkler on 03-08-2023 Creatinine [Mass/Vol] 1.66 mg/dL 0.70-1.30 [facility] Comment on above: The validity of the calculated GFR & GFRAA in patients over 70 years has not been determined. Clinical correlation is essential. Serum or plasma urea nitroge n measurement (mass/volume)Ordered By: Dr. Winkler on 03-08-2023 Urea nitrogen [Mass/Vol] 26 mg/dL 7-18 [facility] Thin prep Papanicolaou smear with manual screeningOrdered By: Dr. Winkler on 03-08-2023 Thin prep Papanicolaou smear with manual screening 6 5-15 [facility] Absolute lymphocyte countOrd ered By: Dr. Ann on 02-19-2023 Lymphocytes Auto (Unsp spec) [#/Vol] 1.96 10*3/uL 0.83-4.51 [facility] Basophil percentageOrdered B y: Dr. Ann on 02-19-2023 Basophils/100 WBC (Bld) 0.4 % 0-1 [facility] Chloride [Moles/Vol] 108 mmol/L 98-107 [facility] Eosinophils/100 WBC (Bld) 1.5 % 0-5 [facility] Glucose [Mass/Vol] 86 mg/dL 74-106 [facility] [place] Neutrophils (Bld) [#/Vol] 12.7 10*3/uL 2.0-7.7 [facility] Neutrophils/100 WBC (Bld) 78.7 % 47-70 [facility] Potassium [Moles/Vol] 3.7 mmol/L 3.5-5.1 [facility] Sodium [Moles/Vol] 138 mmol/L 136-145 [facility] [place] WBC (Bld) [#/Vol] 16.1 10*3/uL 4.4-11.0 [facility] Blood erythrocytes count (nu mber/volume)Ordered By: Dr. Ann on 02-19-2023 RBC (Bld) [#/Vol] 5.15 10*6/uL 4.6-6.2 [facility] Blood hemoglobin measurement (mass/volume)Ordered By: Dr. Ann on 02-19-2023 Hemoglobin (Bld) [Mass/Vol] 17.3 g/dL 13.0-16.5 [facility] Blood lymphocytes/100 leukoc ytesOrdered By: Dr. Ann on 02-19-2023 Lymphocytes/100 WBC (Bld) 12.2 % 19-41 [facility] Blood monocytes/100 leukocyt esOrdered By: Dr. Ann on 02-19-2023 Monocytes/100 WBC (Bld) 6.6 % 0-10 [facility] Blood platelet mean volumeOr dered By: Dr. Ann on 02-19-2023 Platelet mean volume (Bld) [Entitic vol] 10.1 fL 6.2-12.0 [facility] COVID-19 virus antigen assay Ordered By: Dr. Ann on 02-19-2023 SARS-CoV-2 (COVID-19) Ag IA.rapid Ql (Resp) [facility] Determination of erythrocyte mean corpuscular volume (MCV)Ordered By: Dr. Ann on 02-19-2023 MCV (RBC) [Entitic vol] 95.5 fL 80-94 [facility] Hematocrit Auto (Bld) [Volum e fraction]Ordered By: Dr. Ann on 02-19-2023 Hematocrit (Bld) [Volume fraction] 49.2 % 40-54 [facility] Laboratory - Chemistry and C hemistry - challengeOrdered By: Dr. Ann on 02-19-2023 CO2 [Moles/Vol] 25.0 mmol/L 21.0-32.0 [facility] Urea nitrogen/Creatinine [Mass ratio] 10.7 mg/mg 10-20 [facility] Laboratory - Hematology and Cell countsOrdered By: Dr. Ann on 02-19-2023 Erythrocyte distribution width (RBC) [Entitic vol] 41.1 fL 35.1-43.9 [facility] Erythrocyte distribution width (RBC) [Ratio] 11.7 % 11.6-14.6 [facility] Immature granulocytes/100 WBC (Bld) 0.600 % 0.0-0.9 [facility] Comment on above: IG% - Immature Granu locytes (promyelocytes, myelocytes and metamyelocytes) > 1% indicates that a LEFT SHIFT is Present. MCH (RBC) [Entitic mass] 33.6 pg 27.0-32.0 [facility] Nucleated RBC/100 WBC (Bld) [Ratio] 0 % 0-5 [facility] MCHC Auto (RBC) [Mass/Vol]Or dered By: Dr. Ann on 02-19-2023 MCHC (RBC) [Mass/Vol] 35.2 g/dL 32-36 [facility] No Panel InformationOrdered By: Dr. Ann on 02-19-2023 Estimated Creatinine Clearance Calc 72.06 ml/min [facility] Estimated GFR (MDRD) Amer 67 mL/min >60 [facility] Comment on above: GFR Calc Estimated GFR (MDRD) Non-Af Amer 56 mL/min >60 [facility] Comment on above: Non- GFR Calc Troponin I High Sensitivity 9 pg/mL 3.0-78.0 [facility] Comment on above: Please Note: New Renetta t Units and Gender Specific Reference Ranges. For more information see Policy Stat Procedure [place] High Sensitivity Troponin (TNIH) and attachments. Platelets bldOrdered By: Dr. Ann on 02-19-2023 Platelets (Bld) [#/Vol] 256 10*3/uL 150-450 [facility] Serum or plasma calcium khanh urement (mass/volume)Ordered By: Dr. Ann on 02-19-2023 Calcium [Mass/Vol] 9.3 mg/dL 8.5-10.1 [facility] [place] Serum or plasma creatinine m easurement (mass/volume)Ordered By: Dr. Ann on 02-19-2023 Creatinine [Mass/Vol] 1.59 mg/dL 0.70-1.30 [facility] Comment on above: The validity of the calculated GFR & GFRAA in patients over 70 years has not been determined. Clinical correlation is essential. Serum or plasma urea nitroge n measurement (mass/volume)Ordered By: Dr. Ann on 02-19-2023 Urea nitrogen [Mass/Vol] 17 mg/dL 7-18 [facility] Thin prep Papanicolaou smear with manual screeningOrdered By: Dr. Ann on 02-19-2023 Thin prep Papanicolaou smear with manual screening 5 5-15 [facility] ED Note-Provideron ED Note-Provider Normal [facility] [place] Pat Eduon 12-28-2017 Pat Edu Normal [facility] [place] Patient Summary Documentson 12-28-2017 Patient Summary Documents [facility] ([place]) Vital Signs Date Time Vital Sign Value Performing Clinician Faci lity 03-30-2025 14:35-0400 Body temperature 97.6 [degF] No Primary Care Physician [facility] 03-30-2025 14:35-0400 Diastolic blood pressure 108 mm[Hg] No Primary Care Physician [facility] 03-30-2025 14:35-0400 Heart rate 73 /min No Primary Care Physician [facility] 03-30-2025 14:35-0400 Respiratory rate 18 /min No Primary Care Physician [facility] 03-30-2025 14:35-0400 SaO2% (BldA) [Mass fraction] 98 % No Primary Care Physician [facility] 03-30-2025 14:35-0400 Systolic blood pressure 173 mm[Hg] No Primary Care Physician [facility] 03-30-2025 13:00-0400 Body height 177.8 cm No Primary Care Physician [facility] 03-30-2025 13:00-0400 Body mass index (BMI) [Ratio] 43.3 kg/m2 No Primary Care Physician [facility] 03-30-2025 13:00-0400 Body weight 136.98 kg No Primary Care Physician [facility] 12-22-2024 13:23-0500 Body temperature 98.2 [degF] No Primary Care Physician [facility] 12-22-2024 13:23-0500 Diastolic blood pressure 102 mm[Hg] No Primary Care Physician [facility] 12-22-2024 13:23-0500 Heart rate 89 /min No Primary Care Physician [facility] 12-22-2024 13:23-0500 Respiratory rate 15 /min No Primary Care Physician [facility] 12-22-2024 13:23-0500 SaO2% (BldA) [Mass fraction] 99 % No Primary Care Physician [facility] 12-22-2024 13:23-0500 Systolic blood pressure 155 mm[Hg] No Primary Care Physician [facility] 12-06-2024 04:31-0500 Body temperature 98.7 [degF] No Primary Care Physician [facility] 12-06-2024 04:31-0500 Diastolic blood pressure 108 mm[Hg] No Primary Care Physician [facility] 12-06-2024 04:31-0500 Heart rate 79 /min No Primary Care Physician [facility] 12-06-2024 04:31-0500 Respiratory rate 18 /min No Primary Care Physician [facility] 12-06-2024 04:31-0500 SaO2% (BldA) [Mass fraction] 97 % No Primary Care Physician [facility] 12-06-2024 04:31-0500 Systolic blood pressure 181 mm[Hg] No Primary Care Physician [facility] 03-10-2024 11:52-0400 Body temperature 97 [degF] Javier Justice SUPERVISOR [employer] DEPARTMENT.GENERAL ADMINISTRATOR Work Phone: [facility] 03-10-2024 11:52-0400 Body weight 143 kg Javier Ujstice SUPERVISOR PA[employer] DEPARTMENT.GENERAL ADMINISTRATOR Work Phone: [facility] 03-10-2024 11:52-0400 Diastolic blood pressure 94 mm[Hg] Javier Justice SUPERVISOR PA[employer] DEPARTMENT.GENERAL ADMINISTRATOR Work Phone: [facility] 03-10-2024 11:52-0400 Heart rate 68 /min Javier Justice SUPERVISOR [employer] DEPARTMENT.GENERAL ADMINISTRATOR Work Phone: [facility] 03-10-2024 11:52-0400 Respiratory rate 22 /min Javier Justice SUPERVISOR [employer] DEPARTMENT.GENERAL ADMINISTRATOR Work Phone: [facility] 03-10-2024 11:52-0400 SaO2% (BldA) [Mass fraction] 97 % Javier Justice SUPERVISOR [employer] DEPARTMENT.GENERAL ADMINISTRATOR Work Phone: [facility] 03-10-2024 11:52-0400 Systolic blood pressure 143 mm[Hg] Javier Justice SUPERVISOR PA[employer] DEPARTMENT.GENERAL ADMINISTRATOR Work Phone: [facility] 10-20-2023 14:46-0500 Body temperature 98.4 [degF] Angel Athy PA-C Work Phone: [facility] 10-20-2023 14:46-0500 Body weight 138.07 kg Angel Athy PA-C Work Phone: [facility] 10-20-2023 14:46-0500 Diastolic blood pressure 108 mm[Hg] Angel Athy PA-C Work Phone: [facility] 10-20-2023 14:46-0500 Heart rate 108 /min Angel Athy PA-C Work Phone: [facility] 10-20-2023 14:46-0500 Respiratory rate 16 /min Angel Athy PA-C Work Phone: [facility] 10-20-2023 14:46-0500 SaO2% (BldA) [Mass fraction] 97 % Angel Athy PA-C Work Phone: [facility] 10-20-2023 14:46-0500 Systolic blood pressure 180 mm[Hg] Angel Athy PA-C Work Phone: [facility] 10-12-2023 21:48-0500 Respiratory rate 14 /min [facility] 10-12-2023 20:13-0500 Heart rate 89 /min [facility] 10-12-2023 19:19-0500 Body height 177.8 cm [facility] 10-12-2023 19:19-0500 Body mass index (BMI) [Ratio] 43.4 kg/m2 [facility] 10-12-2023 19:19-0500 Body temperature 97.2 [degF] [facility] [facility] 10-12-2023 19:19-0500 Body weight 137.52 kg [facility] 10-12-2023 19:19-0500 Diastolic blood pressure 103 mm[Hg] [facility] 10-12-2023 19:19-0500 SaO2% (BldA) [Mass fraction] 96 % [facility] 10-12-2023 19:19-0500 Systolic blood pressure 166 mm[Hg] [facility] 05-25-2023 10:43-0400 Body height 177.8 cm [facility] 05-25-2023 10:43-0400 Body mass index (BMI) [Ratio] 41.4 kg/m2 [facility] 05-25-2023 10:43-0400 Body temperature 98 [degF] [facility] 05-25-2023 10:43-0400 Body weight 131.08 kg [facility] 05-25-2023 10:43-0400 Diastolic blood pressure 101 mm[Hg] [facility] 05-25-2023 10:43-0400 Heart rate 76 /min [facility] 05-25-2023 10:43-0400 Respiratory rate 14 /min [facility] 05-25-2023 10:43-0400 SaO2% (BldA) [Mass fraction] 97 % [facility] 05-25-2023 10:43-0400 Systolic blood pressure 151 mm[Hg] [facility] 03-08-2023 16:46-0400 Respiratory rate 16 /min [facility] 03-08-2023 15:00-0400 Diastolic blood pressure 104 mm[Hg] [facility] 03-08-2023 15:00-0400 Heart rate 83 /min [facility] 03-08-2023 15:00-0400 SaO2% (BldA) [Mass fraction] 96 % [facility] 03-08-2023 15:00-0400 Systolic blood pressure 150 mm[Hg] [facility] 03-08-2023 12:29-0400 Body height 177.8 cm [facility] 03-08-2023 12:29-0400 Body mass index (BMI) [Ratio] 35.9 kg/m2 [facility] 03-08-2023 12:29-0400 Body temperature 96.9 [degF] [facility] 03-08-2023 12:29-0400 Body weight 113.39 kg [facility] 02-19-2023 20:02-0400 Diastolic blood pressure 89 mm[Hg] [facility] 02-19-2023 20:02-0400 Heart rate 95 /min [facility] 02-19-2023 20:02-0400 Respiratory rate 18 /min [facility] 02-19-2023 20:02-0400 SaO2% (BldA) [Mass fraction] 93 % [facility] 02-19-2023 20:02-0400 Systolic blood pressure 150 mm[Hg] [facility] 02-19-2023 17:39-0400 Body height 177.8 cm [facility] 02-19-2023 17:39-0400 Body mass index (BMI) [Ratio] 38.2 kg/m2 [facility] 02-19-2023 17:39-0400 Body temperature 97 [degF] [facility] 02-19-2023 17:39-0400 Body weight 121.1 kg [facility] 04-19-2022 15:01-0400 Diastolic blood pressure 79 mm[Hg] [facility] Work Phone: 04-19-2022 15:01-0400 Heart rate 84 /min [facility] Work Phone: 04-19-2022 15:01-0400 Respiratory rate 17 /min [facility] Work Phone: 04-19-2022 15:01-0400 SaO2% (BldA) [Mass fraction] 97 % [facility] Work Phone: 04-19-2022 15:01-0400 Systolic blood pressure 152 mm[Hg] [facility] Work Phone: 04-19-2022 12:55-0400 Body height 180.34 cm [facility] Work Phone: 04-19-2022 12:55-0400 Body mass index (BMI) [Ratio] 39.7 kg/m2 [facility] Work Phone: 04-19-2022 12:55-0400 Body temperature 98.5 [degF] [facility] Work Phone: 04-19-2022 12:55-0400 Body weight 129.27 kg [facility] Work Phone: Encounters Encounter Date Encounter Type Care Provider Facility Start: 03-30-2025 End: 03-30-2025 Emergency department patient visit No Primary Care Physician -Emergency Department Work Phone: Start: 12-22-2024 ambulatory No Primary Car e Physician Facility:[facility] Start: 12-22-2024 End: 12-22-2024 Emergency department patient visit Dr. Ryan Crump MD -Emergency Department Work Phone: Start: 12-06-2024 End: 12-06-2024 Emergency department patient visit Dr. Darin Huang DO -Emergency Department Work Phone: Start: 10-29-2024 End: 11-01-2024 Evaluation and management of inpatient 837 NO FAMILY PHYSICIAN Facility:[id number] Start: 03-10-2024 End: 03-10-2024 ambulatory Facility:[facility] Start: 03-10-2024 End: 03-10-2024 Patient encounter procedure Javier Justice APRN.GENERAL ADMINISTRATOR Work Phone: [facility] Comment on above: Gouty arthritis of r ight great toe (Primary Dx) Start: 10-20-2023 End: 10-20-2023 ambulatory Facility:[facility] Start: 10-20-2023 End: 10-20-2023 Patient encounter procedure Angel Fried PA-C Work Phone: [facility] Comment on above: COVID-19 (Primary Dx ); Hypertension, unspecified type Start: 10-12-2023 End: 10-12-2023 Emergency department patient visit [facility]-Emergency Department Work Phone: Start: 06-14-2023 End: 06-14-2023 ambulatory Facility:[facility] Start: 05-25-2023 End: 05-25-2023 Emergency department patient visit [facility]-Emergency Department Work Phone: Start: 03-08-2023 End: 03-08-2023 Patient encounter procedure Marylu Delaney SUPERVISOR PAINT DEPARTMENT.GENERAL ADMINISTRATOR Work Phone: [facility] Comment on above: Chest pain, unspecif ied type (Primary Dx); Bloody stool Start: 03-08-2023 End: 03-08-2023 Emergency department patient visit [facility]Emergency Department Start: 02-19-2023 End: 02-19-2023 Emergency department patient visit [facility]Emergency Department Start: 04-19-2022 End: 04-19-2022 Emergency department patient visit [facility]Emergency Department Start: 07-25-2021 End: 07-25-2021 Emergency department patient visit [facility] Start: 05-29-2021 End: 05-29-2021 Emergency department patient visit VALERIY E [facility] Start: 12-28-2017 End: 12-28-2017 Emergency department patient visit NONE PHYSICIAN Facility:A Procedures Date Procedure Procedure Detail Performing Clinician Start: 03-30-2025 Plain chest X-ray No Primary Care Physician Start: 12-22-2024 X-ray of foot, three or more views No Primary Care Physician Start: 12-06-2024 SARS-CoV-2, Influenza & RSV (PCR) No Primary Care Physician Start: 10-12-2023 Plain chest X-ray Start: 10-12-2023 SARS-CoV-2 & FLU Antigen (Rapid) Start: 05-25-2023 X-ray of both feet Start: 03-08-2023 Plain chest X-ray Start: 02-19-2023 Plain chest X-ray Start: 02-19-2023 Viral antigen assay Start: 04-19-2022 X-ray of both feet History of appendectomy Status p ost laparoscopic appendectomy Plan of Treatment Date Care Activity Detail Author Start: 05-29-2033 Urine microalbumin profile DTaP,Tdap,Td Vaccine (9 - Td or Tdap) [facility] Start: 03-30-2025 [facility] Start: 12-22-2024 [facility] Start: 12-06-2024 [facility] Start: 12-06-2024 Respiratory secretion precautions [facility] Start: 06-26-2024 Influenza vaccination Influenza Vaccine (Season Ended) [facility] Start: 10-26-2023 Behavioral Health Screening Behavioral Health Screening [facility] Start: 10-12-2023 [facility] Start: 06-26-2023 Covid-19 Vaccine ( season) Covid-19 Vaccine () [facility] Start: 06-26-2023 Influenza vaccination [facility] Start: 03-08-2023 Electrocardiographic procedure [facility] Start: 03-08-2023 [facility] Start: 02-19-2023 [facility] Start: 02-19-2023 End: 02-19-2023 [facility] Start: 10-26-2022 DEPRESSION ASSESSMENT DEPRESSION ASSESSMENT [facility] Start: 2014 Urine microalbumin profile DTAP,TDAP,TD (1 - Tdap) [facility] Start: 2013 HEPATITIS C SCREENING HEPATITIS C SCREENING [facility] Start: 2013 Hepatitis C screening Hepatitis C Screening [facility] Start: 2013 HIV SCREENING HIV SCREENING [facility] Start: 2013 HIV screening HIV Screening [facility] Start: 2001 PNEUMOCOCCAL (1 - PCV) PNEUMOCOCCAL (1 - PCV) [facility] Start: 2001 Pneumococcal vaccination Pneumococcal Vaccine (1 of 2 - PCV) [facility] Start: 04-22-1996 COVID-19 VACCINE (#1) COVID-19 VACCINE (#1) [facility] Start: 1995 HEPATITIS B (1 of 3 - 3-dose series) HEPATITIS B (1 of 3 - 3-dose series) [facility] Patient Education [facility] Work Phone: Patient referral [facility] Work Phone: Immunizations Immunization Date Immunization Notes Care Provider Lavinia chau 05-29-2023 tetanus toxoid, redu chloé diphtheria toxoid, and acellular pertussis vaccine, adsorbed [facility] 07-04-2015 tetanus toxoid, redu chloé diphtheria toxoid, and acellular pertussis vaccine, adsorbed [facility] 07-17-2009 influenza virus vaccine, unspecified formulation Angel Fried PA-C Work Phone: [facility] Payers Date Payer Category Payer Self-pay [id number] 2022 Medicaid [employer] [facility] MEDICAID [id number] 2022-Present [phone] [address] [place] [address] Medicaid [id number] 2013 Unknown [id number] 1995 Unknown [id number] 1995 Unknown [id number] 1995 Unknown [id number] 1959 Unknown [id number] Unknown [id number] Unknown [id number] Unknown [id number] Unknown [id number] Social History Date Type Detail Facility Start: 04-19-2022 End: 10-12-2023 Tobacco smoking status OKIS Unknown if ever smoked [facility] Start: 1995 Sex Assigned At Male W [facility] Start: 08-19-2015 End: 03-30-2025 Tobacco smoking status OKIS Smokes tobacco daily [facility] History of tobacco use Cigarette Smoker [facility] Start: 08-19-2015 End: 03-10-2024 Cigarettes smoked current (pack per day) - Reported 0.5 [facility] Start: 08-19-2015 End: 03-10-2024 Alcohol intake Current drinker of alcohol (finding) [facility] Start: 08-19-2015 Alcohol Comment weekly [facility] Start: 1995 Sex Assigned At Not on file [facility] Start: 03-05-2014 Rare [facility] Start: 03-05-2014 None [facility] Start: 03-05-2014 With Family [facility] Start: 10-20-2023 End: 03-10-2024 Tobacco use panel [facility] Mental Status Date Assessment Result Facility 12-06-2024 Cognitive function Level Of Cons ciousness Awake;Alert;Appropriate;Follow s Commands [facility] Work Phone: 03-08-2023 Cognitive function Awake;Alert;A ppropriate;Follow s Commands [facility] Work Phone: Clinical Notes 02-19-2023 to 03-30-2025 Javier Justice APRN.GENERAL ADMINISTRATOR - 03/10/2024 12:02 PM Angel Helm PA-C - 10/20/2023 4:21 PM EST Note Date & Type Note Facility 03-30-2025 Radiology Diagnostic study note [facility] Imaging Services [address] [place], [place] [address] Chest 1 View (Portable) MR#: [id number] Acct: [id number] Name: DARIN RAYMUNDO Rep #: [id number] : 1995 M 29 From: Elicia Dial MD PCP: Care Physician,No Primary Status: REG ER Study:Chest 1 View (Portable) Date of Exam: 03/30/25 Exam# [id number] Ordering Dr: Geovani Duarte DO PROCEDURE: CHEST 1 VIEW (PORTABLE) 03/30/2025 REASON FOR EXAM: DYSPNEA TECHNIQUE: Frontal view of the chest. COMPARISON: 10/12/2023 FINDINGS: Lungs: Lungs clear of pneumonia and congestion. Pleura: No pleural effusions, thickening, or pneumothorax. Heart: Normal in size and configuration. Mediastinum/Pennie: Unremarkable. Great vessels: Unremarkable. Bones/soft tissues: Unremarkable. RAD/Chest 1 View (Portable) IMPRESSION: 1. No active cardiopulmonary disease. Reading Location: [facility] CC: Dr. Cruz Duarte DO; No Primary Care Physician ~ Crime Laboratory Analyst: Signed [facility] 10-29-2024 Note ED Nursing Discharge Summary Entered On: 10/29/2024 22:04 EST Performed On: 10/29/2024 21:36 EST by Julieta Tucker RN, DC Information [id number] ED IV's : No IV ED IV Site Assessment : No IV ED Vitals Completed : Yes ED Final Assessment Completed : Yes ED Progress Note Completed : Yes Complete all PRN/Pain response forms? : N/A ED Disassociate Patient from Monitor : N/A Updated Depart Time : Yes Mode of Discharge : Stretcher Discharge Transportation : Ground ambulance ED Belongings sent w patient [id number] : Yes Valuables Complete : No Julieta Tucker RN - 10/29/2024 22:03 EST Education Instructions given to : Patient TeachBack Methodology : Printed Material Barriers to Learning : None evident Julieta Tucker RN - 10/29/2024 22:03 EST Post-Hospital Education Adult Grid Plan of Care : Verbalizes understanding Julieta Tucker RN - 10/29/2024 22:03 EST Valuables/Belongings Belongings Sent Home With : sent to [employer], [employer], cellphone car keys Julieta Tucker RN - 10/29/2024 22:03 EST ED Assistance Summary Assistance Given? : No Julieta Tucker RN - 10/29/2024 22:03 EST [facility] 03-10-2024 Note HNO ID: [id number] Author: JAVIER JUSTICE APRN.GENERAL ADMINISTRATOR Service: ? Author Type: Nurse Practitioner Type: Progress Notes Filed: 03/10/2024 13:15 Note Text: This note was created using NoteWriter. Subjective Darin Raymundo is a 28 year old male. 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 Has used Ibuprofen The history is provided by the patient. No awnings mechanic was used. Pain (foot) Pain location: right great toe. This is a new problem. Episode onset: 2 days ago. There has been no history of extremity trauma. The problem occurs constantly. The problem has been unchanged. The quality of the pain is described as aching and sharp. The pain is at a severity of 6/10. The pain is moderate. Associated symptoms include joint swelling. Pertinent negatives include no fever, inability to bear weight, itching, joint locking, limited range of motion, numbness or stiffness. The symptoms are aggravated by activity. He has tried NSAIDS for the symptoms. The treatment provided no relief. Family history includes gout. Family history does not include rheumatoid arthritis. His past medical history is significant for gout. There is no history of diabetes, osteoarthritis or rheumatoid arthritis. PAST MEDICAL HISTORY Diagnosis Date Right lower quadrant pain 03/05/14 PAST SURGICAL HISTORY Procedure Laterality Date LAPAROSCOPIC APPENDECTOMY 03/05/14 ALLERGIES Penicillins MEDICATIONS predniSONE (DELTASONE) 10 mg tablet Take 4 tabs daily for 3 days, then 2 tabs daily for 3 days, then 1 tab daily for 3 days with food. Amphetamine-Dextroamphetamine (ADDERALL) 30 mg tablet Take 30 mg by mouth once daily. (Patient not taking: Reported on 10/20/2023) ondansetron orally disintegrating (ZOFRAN ODT) 4 mg disintegrating tablet Take 1 tablet by mouth every 4 hours as needed for Nausea/Vomiting. (Patient not taking: Reported on 10/20/2023) No family history on file. Social History Tobacco Use Smoking status: Every Day Packs/day: .5 Types: Cigarettes Substance Use Topics Alcohol use: Yes Comment: weekly Drug use: Yes Types: Marijuana Review of Systems Constitutional: Negative for activity change, appetite change, chills, diaphoresis, fatigue and fever. Respiratory: Negative for apnea, cough, choking and chest tightness. Cardiovascular: Negative for chest pain, palpitations and leg swelling. Gastrointestinal: Negative for abdominal pain, diarrhea, nausea and vomiting. Musculoskeletal: Positive for gout. Negative for stiffness. Right great toe +pain +redness Skin: Negative for color change, itching and pallor. Allergic/Immunologic: Negative for environmental allergies, food allergies and immunocompromised state. Neurological: Negative for dizziness, facial asymmetry, light-headedness, numbness and headaches. Hematological: Negative for adenopathy. Does not bruise/bleed easily. Psychiatric/Behavioral: Negative for agitation and behavioral problems. Objective BP 143/94 Pulse 68 Temp 36.1 ?C (97 ?F) Resp 22 Wt (!) 143 kg (315 lb 4.1 oz) SpO2 97% Physical Exam Vitals and nursing note reviewed. Constitutional: General: He is not in acute distress. Appearance: Normal appearance. He is not ill-appearing, toxic-appearing or diaphoretic. HENT: Head: Normocephalic and atraumatic. Right Ear: External ear normal. Left Ear: External ear normal. Nose: Nose normal. No congestion or rhinorrhea. Mouth/Throat: Mouth: Mucous membranes are moist. Pharynx: Oropharynx is clear. No oropharyngeal exudate or posterior oropharyngeal erythema. Eyes: General: Right eye: No discharge. Left eye: No discharge. Extraocular Movements: Extraocular movements intact. Conjunctiva/sclera: Conjunctivae normal. Pupils: Pupils are equal, round, and reactive to light. Cardiovascular: Rate and Rhythm: Normal rate and regular rhythm. Pulses: Normal pulses. Heart sounds: Normal heart sounds. No murmur heard. No friction rub. No gallop. Pulmonary: Effort: Pulmonary effort is normal. No respiratory distress. Breath sounds: Normal breath sounds. No stridor. No wheezing, rhonchi or rales. Chest: Chest wall: No tenderness. Abdominal: General: Abdomen is flat. There is no distension. Palpations: Abdomen is soft. There is no mass. Tenderness: There is no abdominal tenderness. There is no guarding or rebound. Hernia: No hernia is present. Musculoskeletal: General: Swelling and tenderness present. No deformity or signs of injury. Normal range of motion. Cervical back: Normal range of motion and neck supple. No rigidity or tenderness. Right lower leg: No edema. Left lower leg: No edema. Comments: Right great to (more content not included)... [facility] 03-10-2024 History of Present illness Narrative This note was created using [employer]. Subjective Darin Raymundo is a 28 year old male. 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 Has used Ibuprofen The history is provided by the patient. No awnings mechanic was used. Pain (foot) Pain location: right great toe. This is a new problem. Episode onset: 2 days ago. There has been no history of extremity trauma. The problem occurs constantly. The problem has been unchanged. The quality of the pain is described as aching and sharp. The pain is at a severity of 6/10. The pain is moderate. Associated symptoms include joint swelling. Pertinent negatives include no fever, inability to bear weight, itching, joint locking, limited range of motion, numbness or stiffness. The symptoms are aggravated by activity. He has tried NSAIDS for the symptoms. The treatment provided no relief. Family history includes gout. Family history does not include rheumatoid arthritis. His past medical history is significant for gout. There is no history of diabetes, osteoarthritis or rheumatoid arthritis. PAST MEDICAL HISTORY Diagnosis Date Right lower quadrant pain 03/05/14 PAST SURGICAL HISTORY Procedure Laterality Date LAPAROSCOPIC APPENDECTOMY 03/05/14 ALLERGIES Penicillins MEDICATIONS predniSONE (DELTASONE) 10 mg tablet Take 4 tabs daily for 3 days, then 2 tabs daily for 3 days, then 1 tab daily for 3 days with food. Amphetamine-Dextroamphetamine (ADDERALL) 30 mg tablet Take 30 mg by mouth once daily. (Patient not taking: Reported on 10/20/2023) ondansetron orally disintegrating (ZOFRAN ODT) 4 mg disintegrating tablet Take 1 tablet by mouth every 4 hours as needed for Nausea/Vomiting. (Patient not taking: Reported on 10/20/2023) No family history on file. Social History Tobacco Use Smoking status: Every Day Packs/day: .5 Types: Cigarettes Substance Use Topics Alcohol use: Yes Comment: weekly Drug use: Yes Types: Marijuana Review of Systems Constitutional: Negative for activity change, appetite change, chills, diaphoresis, fatigue and fever. Respiratory: Negative for apnea, cough, choking and chest tightness. Cardiovascular: Negative for chest pain, palpitations and leg swelling. Gastrointestinal: Negative for abdominal pain, diarrhea, nausea and vomiting. Musculoskeletal: Positive for gout. Negative for stiffness. Right great toe +pain +redness Skin: Negative for color change, itching and pallor. Allergic/Immunologic: Negative for environmental allergies, food allergies and immunocompromised state. Neurological: Negative for dizziness, facial asymmetry, light-headedness, numbness and headaches. Hematological: Negative for adenopathy. Does not bruise/bleed easily. Psychiatric/Behavioral: Negative for agitation and behavioral problems. Objective BP 143/94 Pulse 68 Temp 36.1 C (97 F) Resp 22 Wt (!) 143 kg (315 lb 4.1 oz) SpO2 97% Physical Exam Vitals and nursing note reviewed. Constitutional: General: He is not in acute distress. Appearance: Normal appearance. He is not ill-appearing, toxic-appearing or diaphoretic. HENT: Head: Normocephalic and atraumatic. Right Ear: External ear normal. Left Ear: External ear normal. Nose: Nose normal. No congestion or rhinorrhea. Mouth/Throat: Mouth: Mucous membranes are moist. Pharynx: Oropharynx is clear. No oropharyngeal exudate or posterior oropharyngeal erythema. Eyes: General: Right eye: No discharge. Left eye: No discharge. Extraocular Movements: Extraocular movements intact. Conjunctiva/sclera: Conjunctivae normal. Pupils: Pupils are equal, round, and reactive to light. Cardiovascular: Rate and Rhythm: Normal rate and regular rhythm. Pulses: Normal pulses. Heart sounds: Normal heart sounds. No murmur heard. No friction rub. No gallop. Pulmonary: Effort: Pulmonary effort is normal. No respiratory distress. Breath sounds: Normal breath sounds. No stridor. No wheezing, rhonchi or rales. Chest: Chest wall: No tenderness. Abdominal: General: Abdomen is flat. There is no distension. Palpations: Abdomen is soft. There is no mass. Tenderness: There is no abdominal tenderness. There is no guarding or rebound. Hernia: No hernia is present. Musculoskeletal: General: Swelling and tenderness present. No deformity or signs of injury. Normal range of motion. Cervical back: Normal range of motion and neck supple. No rigidity or tenderness. Right lower leg: No edema. Left lower leg: No edema. Comments: Right great toe with generalized TTP +erythema +swelling No abscess No red streaking No crepitus Brisk cap refill Lymphadenopathy: Cervical: No cervical adenopathy. Skin: General: Skin is warm and dry. Capillary Refill: Capillary refill takes less than 2 seconds. Coloration: Skin is not jaundiced or pale. Findings: No bruising, lesion or rash. Neurological: General: No focal deficit present. Mental Status: He is alert and oriented to person, place, and time. Cranial Nerves: No cranial nerve deficit. Sensory: No sensory deficit. Motor: No weakness. Coordination: Coordination normal. Gait: Gait normal. Deep Tendon Reflexes: Reflexes normal. Psychiatric: Mood and Affect: Mood normal. Behavior: Behavior normal. Thought Content: Thought content normal. Assessment and Plan ASSESSMENT/PLAN: 1. Gouty arthritis of right great toe - ICD9: 274.00, ICD10: M10.9 X 2 days ?? Ingestion of high purine foods RX Prednisone taper Avoid triggers F/U with PCP Javier Justice APRN.GENERAL ADMINISTRATOR documented in this encounter [facility] 10-20-2023 Note HNO ID: [id number] Author: Angel Fried PA-C Service: ? Author Type: Physician Director [employer] Type: Progress Notes Filed: 10/20/2023 4:25 PM Note Text: This note was created using [employer]. Subjective Darin Raymundo is a 27 year old male. HPI Presents with a chief complaint of cough congestion fever body aches for 3 days. He tested positive for COVID at home today. His family members also tested positive. He does have a history of chronic hypertension that is not treated. He also has a history of chronic kidney disease. Does not currently have a primary doctor. Also has a history of asthma. States he has lost his smell and taste. No chest pain. He has had COVID before. Not vaccinated for COVID. He came in as he wanted a work note. Review of Systems Constitutional: Positive for fatigue and fever. HENT: Positive for congestion and sore throat. Negative for ear pain. Respiratory: Positive for cough and shortness of breath. Negative for wheezing. Cardiovascular: Negative. Gastrointestinal: Negative. Genitourinary: Negative. Musculoskeletal: Positive for myalgias. Skin: Negative. Neurological: Positive for headaches. All other systems reviewed and are negative. PAST MEDICAL HISTORY Diagnosis Date Right lower quadrant pain 03/05/14 Current Outpatient Medications Medication Sig Dispense Refill Amphetamine-Dextroamphetamine (ADDERALL) 30 mg tablet Take 30 mg by mouth once daily. (Patient not taking: Reported on 10/20/2023) ondansetron orally disintegrating (ZOFRAN ODT) 4 mg disintegrating tablet Take 1 tablet by mouth every 4 hours as needed for Nausea/Vomiting. (Patient not taking: Reported on 10/20/2023) 8 tablet 0 No current facility-administered medications for this visit. PAST SURGICAL HISTORY Procedure Laterality Date LAPAROSCOPIC APPENDECTOMY 03/05/14 No family history on file. Social History Tobacco Use Smoking status: Every Day Packs/day: .5 Types: Cigarettes Substance Use Topics Alcohol use: Yes Comment: weekly Drug use: Yes Types: Marijuana Objective BP 180/108 Pulse 108 Temp 36.9 ?C (98.4 ?F) (Tympanic) Resp 16 Wt (!) 138.1 kg (304 lb 6.4 oz) SpO2 97% Physical Exam Vitals reviewed. Constitutional: Appearance: Normal appearance. HENT: Head: Normocephalic and atraumatic. Right Ear: Tympanic membrane, ear canal and external ear normal. Left Ear: Tympanic membrane, ear canal and external ear normal. Nose: Congestion present. Mouth/Throat: Mouth: Mucous membranes are moist. Pharynx: Oropharynx is clear. Cardiovascular: Rate and Rhythm: Normal rate and regular rhythm. Heart sounds: Normal heart sounds. Pulmonary: Effort: Pulmonary effort is normal. Breath sounds: Normal breath sounds. Musculoskeletal: Cervical back: Neck supple. Skin: General: Skin is warm and dry. Findings: No rash. Neurological: Mental Status: He is alert. Assessment and Plan ASSESSMENT/PLAN: 1. COVID-19 - ICD9: 079.89, ICD10: U07.1 (primary diagnosis) Patient was not interested in oral antiviral treatment. He states he came in as he needed a work note. This was provided. 2. Hypertension, unspecified type - ICD9: 401.9, ICD10: I10 I Did discuss with patient that he should establish with a primary care to address his hypertension. He states he has had high blood pressure since he was a child. At 1 point was on blood pressure medication but has not had a doctor in several years. Discussed the ramifications of untreated hypertension including stroke, heart attack, kidney disease, blindness, and other chronic issues. Patient voiced understanding. He does not have any acute symptoms of hypertension today. Angel Fried PA-C [facility] 10-20-2023 History of Present illness Narrative This note was created using [employer]. Subjective Darin Raymundo is a 27 year old male. HPI Presents with a chief complaint of cough congestion fever body aches for 3 days. He tested positive for COVID at home today. His family members also tested positive. He does have a history of chronic hypertension that is not treated. He also has a history of chronic kidney disease. Does not currently have a primary doctor. Also has a history of asthma. States he has lost his smell and taste. No chest pain. He has had COVID before. Not vaccinated for COVID. He came in as he wanted a work note. Review of Systems Constitutional: Positive for fatigue and fever. HENT: Positive for congestion and sore throat. Negative for ear pain. Respiratory: Positive for cough and shortness of breath. Negative for wheezing. Cardiovascular: Negative. Gastrointestinal: Negative. Genitourinary: Negative. Musculoskeletal: Positive for myalgias. Skin: Negative. Neurological: Positive for headaches. All other systems reviewed and are negative. PAST MEDICAL HISTORY Diagnosis Date Right lower quadrant pain 03/05/14 Current Outpatient Medications Medication Sig Dispense Refill Amphetamine-Dextroamphetamine (ADDERALL) 30 mg tablet Take 30 mg by mouth once daily. (Patient not taking: Reported on 10/20/2023) ondansetron orally disintegrating (ZOFRAN ODT) 4 mg disintegrating tablet Take 1 tablet by mouth every 4 hours as needed for Nausea/Vomiting. (Patient not taking: Reported on 10/20/2023) 8 tablet 0 No current facility-administered medications for this visit. PAST SURGICAL HISTORY Procedure Laterality Date LAPAROSCOPIC APPENDECTOMY 03/05/14 No family history on file. Social History Tobacco Use Smoking status: Every Day Packs/day: .5 Types: Cigarettes Substance Use Topics Alcohol use: Yes Comment: weekly Drug use: Yes Types: Marijuana Objective BP 180/108 Pulse 108 Temp 36.9 C (98.4 F) (Tympanic) Resp 16 Wt (!) 138.1 kg (304 lb 6.4 oz) SpO2 97% Physical Exam Vitals reviewed. Constitutional: Appearance: Normal appearance. HENT: Head: Normocephalic and atraumatic. Right Ear: Tympanic membrane, ear canal and external ear normal. Left Ear: Tympanic membrane, ear canal and external ear normal. Nose: Congestion present. Mouth/Throat: Mouth: Mucous membranes are moist. Pharynx: Oropharynx is clear. Cardiovascular: Rate and Rhythm: Normal rate and regular rhythm. Heart sounds: Normal heart sounds. Pulmonary: Effort: Pulmonary effort is normal. Breath sounds: Normal breath sounds. Musculoskeletal: Cervical back: Neck supple. Skin: General: Skin is warm and dry. Findings: No rash. Neurological: Mental Status: He is alert. Assessment and Plan ASSESSMENT/PLAN: 1. COVID-19 - ICD9: 079.89, ICD10: U07.1 (primary diagnosis) Patient was not interested in oral antiviral treatment. He states he came in as he needed a work note. This was provided. 2. Hypertension, unspecified type - ICD9: 401.9, ICD10: I10 I Did discuss with patient that he should establish with a primary care to address his hypertension. He states he has had high blood pressure since he was a child. At 1 point was on blood pressure medication but has not had a doctor in several years. Discussed the ramifications of untreated hypertension including stroke, heart attack, kidney disease, blindness, and other chronic issues. Patient voiced understanding. He does not have any acute symptoms of hypertension today. Angel Fried PA-C documented in this encounter [facility] 10-12-2023 Discharge summary Note Date/Time October 12, 2023 7:51pm [facility] Medical Records Department [address] [place] [id number] Emergency Department Summary 10/12/23 MR#: [id number] Acct: [id number] Name: DARIN RAYMUNDO Rep #:[id number] : 1995 27 From: Valeriy Mercer MD PCP: Care Physician,No Primary Status :REG ER Location: ED HPI History of Present Illness Chief Complaint: Nausea/Vomiting Detail of Chief Complaint: Nausea and vomiting 2 days ago and today and respiratory symptoms Informant: patient Onset/Context/Timing Onset: Days (Onset of illness 3 days ago.) Context: Sudden Onset Timing: Intermittent and Waxes and wanes Quality: Initially GI then respiratory now both Location: Respiratory and GI Current Severity: Mild Maximum Severity: Moderate Worsened by: Dyspnea on exertion Relieved by: Nothing Associated Symptoms Associated Symptoms: Diarrhea today Narrative Narrative: Patient is a 27-year-old who was exposed to person with COVID and relative with RSV. His symptoms started 3 days ago with nausea and vomiting initially. He then developed upper respiratory symptoms with rhinorrhea, congestion sore throat and cough. Cough is productive of colored sputum. He does endorse wheezing. He is presently a smoker of 1.5 packs/day. He now complains of diarrhea. He denies headache, visual, ocular auditory symptoms. He denies ear pain or drainage from his ears. He denies neck pain or neck stiffness. He denies lightsensitivity. He denies chest pain. He denies dyspnea on exertion. He does complain of some vague epigastric discomfort. He reports tarry appearing emesis today. He denies black or maroon-colored stool. He denies history of hiatal hernia, reflux or peptic ulcer disease. Prior similar symptoms: No Recent Illness/Hospitalization: No PFSH PFS Medical History Asthma attack Kidney disease Liver abscess Home Medications prednisone 20 mg tablet 60 mg (3 x 20 mg) PO DAILY #12 TABLETS 10/12/23 [Rx Last Taken Unknown] Allergy/AdvReac Type Severity Reaction Status Date / Time amoxicillin Allergy Hives Verified 10/12/23 19:18 Penicillins Allergy Hives Verified 10/12/23 19:18 Surgical History Hx of appendectomy Social History household members: spouse and children housing: house current occupational status: employed Smoking Status: Current every day smoker tobacco type: cigarettes ROS ROS ED Constitutional Constitutional ED: Reports fever(s) and subjective; Denies chills or sweats Eyes Eyes: Denies blurry vision, change in vision or diplopia ENT ENT ED: Reports rhinorrhea; Denies ear pain Cardiovascular Cardiovascular: Denies chest pain, orthopnea, palpitations, paroxysmal nocturnaldyspnea or racing heartbeat Respiratory/Chest Respiratory/Chest: Reports cough, dyspnea, dyspnea on exertion and sputum; Denies orthopnea or paroxysmal nocturnal dyspnea Gastrointestinal Gastrointestinal: Reports abdominal pain, diarrhea, nausea and vomiting; Denies constipation or melena Genitourinary Genitourinary ED: Denies dysuria, hematuria or urinary frequency Musculoskeletal Musculoskeletal: Reports myalgias; Denies arthralgias, back pain or neck pain Integumentary Denies abscess or rash Neurologic Neurologic: Reports headache(s); Denies paresthesias or weakness Psychiatric Psychiatric: Denies anxiety Endocrine Endocrinology: Denies cold intolerance or heat intolerance Hematologic/Lymphatic Hematologic/Lymphatic: Reports systems reviewed and no addt'l complaints, exceptas documented EXAM Physical Exam Const Vital Signs: 10/12/23 19:19 10/12/23 20:13 Temperature 97.2 F L Temperature Source Temporal Pulse Rate 89 89 Respiratory Rate 20 H 20 H Respiratory Pattern Normal Blood Pressure 166/103 H Blood Pressure Mean 124 Pulse Ox 96 Oxygen Delivery Method Room Air Positive well nourished, well developed and obese Constitutional Narrative: Patient does not appear well. Vital signs remarkable for an elevated blood pressure. General Appearance ED: well developed, NAD and pallor; Negative for cyanotic or diaphoretic Nutritional Appearance: obese HEENT Reports dry mucous membranes HEENT Narrative: Head is atraumatic and normocephalic. Ears are normal. TMs are normal. Nares patent with clear drainage. Posterior pharynx erythema or exudate. Uvula is midline. Mouth ED: Yes dry mucous membranes Mouth: dry mucous membranes Eyes PERRL and EOMs intact bilaterally General Eye ED: Negative for pale conjunctiva or scleral icterus Neck no lymphadenopathy, supple and no JVD Neck Narrative: Trachea is midline. There is no stridor. Chest Wall inspection of chest normal and palpation of chest normal Resp normal respiratory effort and No clear to auscultation bilaterally Auscultation: rales left base and wheezes expiratory wheezes, scattered wheezes (Left greater than right.) and throughout Cardio regular rate, regular rhythm, S1 normal heart sound, S2 normal heart sound and no murmurs GI normal to inspection, nondistended, normoactive bowel sounds, non-distended and no masses; Negative for non-tender or hepatosplenomegaly Palpation: soft and tender epigastric Back/Spine no CVA tenderness Extremity normal to inspection General Extremety ED: Negative for edema or tenderness General Extremity: Negative for edema Neuro oriented x3, CN's II-XII intact bilaterally and no sensory deficits noted Sensorium / Orientation: alert Psych mental status grossly normal Skin no rashes or lesions noted, no wounds and skin turgor normal General Skin Exam: pallor; Negative for jaundice MDM MDM MDM Narrative Medical decision making narrative: Patient has symptoms consistent with viral infection. Since he has been exposedto COVID we will test for COVID. Because he is wheezing with productive cough and tachypneic will obtain chest x-ray to assess for pneumonia. He has history of pneumonia on multiple occasions. Since he has history of asthma and is wheezing albuterol was ordered. CBC to assess white count differential. Basic metabolic panel to assess renal function and assess for endorgan dysfunction. History & Record Review Additional record(s) reviewed:: Prior ED visit (Numerous visits for bronchitis, viral illness, asthma etc.) and Prior labs Lab Data Attestation: I reviewed the patient's lab results. Lab results narrative: White count is elevated with mild shift. There is no bandemia. Basic metabolicpanel is remarkable for an elevated creatinine of 1.84 which is slightly above baseline for patient. Estimated GFR is 47. BUN to creatinine ratio is approximately 12-1. Labs: Laboratory Results - last 24 hr 10/12/23 20:04 WBC 14.2 H RBC 4.94 Hgb 15.7 Hct 46.6 MCV 94.3 H MCH 31.8 MCHC 33.7 RDW Std Deviation 39.5 RDW Coeff of Maryanne 11.4 L Plt Count 248 MPV 9.7 Immature Gran % (Auto) 0.600 Neut % (Auto) 77.9 H Lymph % (Auto) 14.1 L [place] % (Auto) 5.9 Eos % (Auto) 1.0 Baso % (Auto) 0.5 Absolute Neuts (auto) 11.1 H Absolute Lymphs (auto) 1.99 Nucleated RBC % 0 Sodium 140 Potassium 3.8 Chloride 109 H Carbon Dioxide 26.0 Anion Gap 5 BUN 23 H Creatinine 1.84 H Estim Creat Clear Calc 62.27 Est GFR (MDRD) Af Amer 57 L Est GFR (MDRD) Non-Af 47 L BUN/Creatinine Ratio 12.5 Glucose 99 Calcium 9.3 Radiography Chest X-Ray - ED: 2 View and Read by ED Physician (2 view chest x-rays independent reviewed interpreted by me at 2021 as negative for any acute process. Cardiac silhouette and size normal. Lung parenchyma normal. There isno effusion. Perihilar regions normal. Osseous structures are unremarkable.) Diagnostic Testing: Clinical Impression(s) from Imaging Studies Chest X-Ray 10/12/23 20:20 IMPRESSION: No radiographic evidence of acute cardiopulmonary disease. Electronically Signed: Honorio Ponce DO at 20:31 EST Reading Location ID and State: [facility] / [place] Tel [phone], Service support , Treatment and Re-Evaluation :: Patient had traumatic injury with epistaxis due to placement of NG. There is noactive bleeding or coffee-ground emesis noted. NG was pulled. Comments:: Patient's wheezing improved with aerosols. Patient still has wheezing after treatment. Will discharge with burst of prednisone. He was instructed use his inhaler every 2-4 hours while awake for the next 3 to 5 days. He also was instructed follow-up with [facility] in 1 to 2 weeks to have his blood pressure rechecked. Discharge Plan Triage Chief Complaint: Nausea/Vomiting Other Complaint: Dizziness ED Provider: Valeriy Mercer Dx/Rx/DC Orders Clinical Impression: Upper respiratory infection with cough and congestion, Acute bronchospasm, Elevated blood-pressure reading without diagnosis of hypertension, Tobacco use Instructions: ED Hypertension, To Be Confirmed, ED URI, Viral W/ Wheezing (Adult) Prescriptions: New prednisone 20 mg tablet 60 mg PO DAILY Qty: 12 0RF Primary Care Provider: Care Physician,No Primary Referrals: Claudia Quan [Non-Staff] - 1 Week if not improving Care Physician,No Primary [Primary Care Provider] - Activity Restrictions/Additional Instructions: 1. 2 puffs of inhaler every 2-4 hours while awake for the next 3 to 5 days and every 4-6 hours for shortness of breath or wheezing 2. Because you smoke you may have a cough up to 1 month. 3. Your blood pressure readings are elevated. You should follow-up at the [facility] for recheck in 1 to 2 weeks Disposition Disposition: Home, Self Care What to do if you have Problems For any increased pain, shortness of breath, bleeding, nausea or vomiting, chestpain, or any unexpected problems, contact your Primary Care Provider. Call [facility] ([phone]) or report to the closest Emergency Room. Call 911 if necessary. 10/12/232133 <Electronically signed by Valeriy Mercer MD> Cosigner Signature (if applicable): CC: No Primary Care Physician ~ Signed [facility] Work Phone: [phone]) 766-471808-20-2023 NoteHNO ID: [id number] Author: Migue Samano APRN.GENERAL ADMINISTRATOR Service: ? Author Type: Nurse Practitioner Type: Progress Notes Filed: 06/19/2023 3:08 PM Note Text: Subjective Suture Removal Darin Raymundo is a 27 year old male who presents with need for suture removal. He has 8 sutures that were placed in his right thigh in the emergency room 2 weeks ago. He denies pain or symptoms. Review of Systems Constitutional: Negative for chills and fever. Musculoskeletal: Negative for myalgias. Skin: Negative for itching and rash. BP 152/88 Pulse 88 Temp 36.6 ?C (97.8 ?F) Resp 16 Wt 129.7 kg (286 lb) SpO2 98% PAST MEDICAL HISTORY Diagnosis Date - Right lower quadrant pain 03/05/14 PAST SURGICAL HISTORY Procedure Laterality Date - LAPAROSCOPIC APPENDECTOMY 03/05/14 ALLERGIES Penicillins MEDICATIONS - Amphetamine-Dextroamphetamine (ADDERALL) 30 mg tablet Take 30 mg by mouth once daily. - ondansetron orally disintegrating (ZOFRAN ODT) 4 mg disintegrating tablet Take 1 tablet by mouth every 4 hours as needed for Nausea/Vomiting. No family history on file. Social History Tobacco Use - Smoking status: Every Day Packs/day: .5 Types: Cigarettes Substance Use Topics - Alcohol use: Yes Comment: weekly - Drug use: Yes Types: Marijuana Objective Physical Exam Vitals and nursing note reviewed. Constitutional: General: He is not in acute distress. Appearance: Normal appearance. He is not ill-appearing. Skin: General: Skin is warm and dry. Capillary Refill: Capillary refill takes less than 2 seconds. Findings: Erythema (healing laceration with slight erythema at suture line consisted with wound healing) present. No rash. Neurological: Mental Status: He is alert. ASSESSMENT/PLAN: 1. Visit for suture removal - ICD9: V58.32, ICD10: Z48.02 - 8 sutures removed. One suture has a short tail piece of suture remaining beneath scab. Patient advised to do warm compresses to this area and the scab will loosen and peel off, taking remaining piece of suture with it. He verbalized understanding. Migue Samano APRN.[facility]05-14-[address] Winkler [facility] March 08, 2023 4:21pm Note Date/Time March 08, 2023 12:38 pm [facility] Medical Records Department [address] [place] [address] Emergency Department Summary 03/08/23 MR#: [id number] Acct: [id number] Name: DARIN RAYMUNDO Rep #:[id number] : 1995 27 From: Chad Ashby PCP: Care Physician,No Primary Status :REG ER Location: ED HPI History of Present Illness Chief Complaint: Chest Pain [facility] Medical History (Updated 03/08/23 @ 16:[address] Chad Winkler DO) Asthma attack Kidney disease Liver abscess Home Medications albuterol sulfate 90 mcg/actuation aerosol inhaler (Ventolin HFA) 1 - 2 puff inhalation Q4H PRN PRN Wheezing ##1 09/02/22 [Rx Last Taken Unknown] Allergy/AdvReac Type Severity Reaction Status Date / Time amoxicillin Allergy Rash Verified 03/08/23 12:30 Penicillins Allergy Rash Verified 03/08/23 12:30 Surgical History Hx of appendectomy Social History Smoking Status: Current every day smoker tobacco type: cigarettes EXAM Physical Exam Const Vital Signs: 03/08/23 12:29 03/08/23 12:39 03/08/23 13:03 Temperature 96.9 F L Temperature Source Temporal Pulse Rate 86 Respiratory Rate 18 Respiratory Effort Normal Non-Labored Blood Pressure 158/95 H Blood Pressure Mean 116 Pulse Ox 98 Oxygen Delivery Method Room Air Room Air 03/08/23 14:00 03/08/23 15:00 Temperature Temperature Source Pulse Rate 76 83 Respiratory Rate 16 16 Respiratory Effort Blood Pressure 128/77 H 150/104 H Blood Pressure Mean 94 119 Pulse Ox 98 96 Oxygen Delivery Method Room Air Room Air [facility] Narr[place] Medical decision making narrative: HISTORY OF PRESENT ILLNESS: 27-year-old male here with chest pain. The patient states he had 2 days of intermittent chest pain. He states is pleuritic in nature. Exertional in nature. Is not ripping or tearing. Does not radiate to his neck arm or back. Patient denies sudden onset of pain, no tearing sensation, no migratory symptoms, no new numbness, weakness or loss of sensation. Patient denies familyhistory or personal history of Marfan syndrome or Vikas-Danlos. The patient denies recent surgery in the last 4 weeks or immobilization in the last 3 days, denies previous diagnosis of DVT or PE, hemoptysis, unilateral leg swelling or malignancy with treatment the last 6 months. No estrogen use noted. Patient does note bright red blood per rectum which he states started 2 days ago. Denies any blood thinners. He also endorses several episodes of nonbloody nonbilious vomitus over the last 2 days. He denies cough, fever. He denies anyshortness of breath. REVIEW OF SYSTEMS: Pertinent positives: Chest pain, nausea vomiting, hematochezia Pertinent negatives: Syncope, shortness of breath, lower extremity edema PHYSICAL EXAM: Nursing triage notes reviewed, Vital signs reviewed Constitutional: please see [facility] HENT: MMM Eyes: Pupils equal round and reactive to light, Extraocular muscles intact Neck: No stridor, no JVD, full neck ROM Lungs: Clear to auscultation, No wheezing or rales. No increased work of breathing, no conversational dyspnea, no accessory muscle use, no nasal flaring. No respiratory distress noted Heart: Regular rate and rhythm, No murmurs, No rubs and No gallops, 2+ distal pulses (radial, femoral, posterior tibial) in all extremities Abdomen: Soft, there is no tenderness, rigidity, rebound or guarding, no obviousperitoneal signs, no palpable pulsatile abdominal masses, no auscultated abdominal bruit : No CVAT Extremities: No edema Neuro: No focal neurological deficits, cranial nerves II through XII intact, 5/5strength in all extremities. Intact sensation to light touch in all extremities,2+ reflexes bilateral patella tendons. Normal gait. No ataxia. Skin: No rash or lesions noted MEDICAL DECISION MAKING: Chief Complaint: External records reviewed: seen on 02/19/2023 for shortness of breath. Discharged after negative work-up. COVID and flu test was negative at that time MDM Narrative: I considered the following differential diagnosis: ACS, arrhythmia, anemia, electrolyte abnormalities, PE, aortic dissection, GI etiology such as Boerhaave syndrome/Margot-Gama tear The patient was hemodynamically stable, afebrile, nontoxic-appearing. There areno focal cardiopulmonary abnormalities. There is no stigmata of VTE on exam. There is no pulse deficits. I considered aortic dissection as a potential etiology however the patient had no historical factors such as connective tissuedisorders, family history. His exam was without pulse deficit, focal neurologicdeficit. He did not appear to be in extremis or complaining of active chest pain which makes aortic dissection unlikely. I was also concerned about pulmonary embolism given the pleuritic nature of his chest pain. I obtained a D-dimer to further lower his post test probability. D-dimer was negative. The remainder the patient's labs and images were also negative. No signs of pneumothorax, pneumonia or volume overload. No signs of myocardial ischemia with negative troponin x2. No significant anemia or electrolyte abnormalities. PE less likely given low risk Wells score. Aortic dissection is thought to be less likely given no sudden ripping or tearing pain, migratory pain, palpable pulse inequalities, no focal neurologic deficits concurrent with chest pain. Chance of dissection less than 10/1999. Pericarditis less likely given no pathognomonic EKG changes (no diffuse ST elevations, [place] depressions). GI etiology (i.e. Boerhaave syndrome) less likely given no chest or neck crepitus, no vomiting or forced retching. I completed a HEART Score to screen for Major Adverse Cardiac Event (MACE) in this patient. The evidence indicates that the patient is very low risk for MACE and this is consistent with my clinical intuition. The risk of further workup or hospitalization for MACE is likely higher than therisk of the patient having a MACE. It is, therefore, in the patient?s best interest not to do additional emergent testing or to be hospitalized for MACE atthis time. Shared Decision-Making No hospitalization indicated I have discussed with the patient my clinical impression and the result of the HEART Score to screen for MACE, as well as the risks of further testing and hospitalization. The HEART Score shows that the risk for MACE is less than 1%. Although the risk of MACE has not been completely eliminated, the risks of further testing or hospitalization for MACE likely exceed any potential benefit,and the patient agrees with not pursuing further emergent evaluation or hospitalization for MACE at this time. Factors affecting care: Tobacco use Social determinants of health: Poor health literacy History obtained from others: None Shared decision making: I will have a discussion with the patient and or visitors regarding risk/benefits of further testing or admission. They will be made aware of of the risk/benefits inherent in this decision they will be given the opportunity to voice understanding. Consults: None Lab Data Attestation: I reviewed the patient's lab results. Lab results narrative: EKG with normal sinus rhythm, left axis deviation, normal intervals, no STEMI CBC without leukocytosis, severe anemia, no thrombocytopenia. D-dimer negative making VTE less likely BMP without evidence of significant electrolyte abnormalities, no anion gap, no acute kidney injury. Troponin is negative, no evidence of myocardial ischemia, delta troponin negative BNP within normal limits suggestive of no volume overload, increased ventricularstretch Labs: Laboratory Results - last 24 hr 03/08/23 03/08/23 03/08/23 13:01 13:01 13:01 WBC 10.6 RBC 4.54 L Hgb 14.8 Hct 44.1 MCV 97.1 H MCH 32.6 H MCHC 33.6 RDW Std Deviation 42.8 RDW Coeff of Maryanne 11.9 Plt Count 205 MPV 10.1 Immature Gran % (Auto) 0.500 Neut % (Auto) 69.1 Lymph % (Auto) 19.4 [place] % (Auto) 8.3 Eos % (Auto) 2.1 Baso % (Auto) 0.6 Absolute Neuts (auto) 7.3 Absolute Lymphs (auto) 2.05 Nucleated RBC % 0 D-Dimer Quant (PE/DVT) 0.30 Sodium 143 Potassium 4.2 Chloride 110 H Carbon Dioxide 27.0 Anion Gap 6 BUN 26 H Creatinine 1.66 H Estim Creat Clear Calc 69.02 Est GFR (MDRD) Af Amer 64 Est GFR (MDRD) Non-Af 53 L BUN/Creatinine Ratio 15.7 Glucose 143 H Calcium 8.6 Troponin I High Sens 8 B-Natriuretic Peptide 03/08/23 03/08/23 13:01 15:07 WBC RBC Hgb Hct MCV MCH MCHC RDW Std Deviation RDW Coeff of Maryanne Plt Count MPV Immature Gran % (Auto) Neut % (Auto) Lymph % (Auto) [place] % (Auto) Eos % (Auto) Baso % (Auto) Absolute Neuts (auto) Absolute Lymphs (auto) Nucleated RBC % D-Dimer Quant (PE/DVT) Sodium Potassium Chloride Carbon Dioxide Anion Gap BUN Creatinine Estim Creat Clear Calc Est GFR (MDRD) Af Amer Est GFR (MDRD) Non-Af BUN/Creatinine Ratio Glucose Calcium Troponin I High Sens 8 B-Natriuretic Peptide 10.9 Radiography Chest X-Ray - ED: Read by ED Physician Diagnostic Testing: Clinical Impression(s) from Imaging Studies Chest X-Ray 03/08/23 13:05 IMPRESSION: No acute thoracic pathology. Electronically Signed: Zak Redding MD at 13:23 EDT Reading Location ID and State: [facility] / [place] Tel , Service support , I have personally reviewed the patient's chest x-ray. Chest x-ray is unremarkable for pulmonary edema, pneumothorax, pneumonia or focal cardiopulmonary abnormality. Discharge Plan Triage Chief Complaint: Chest Pain ED Provider: Chad Winkler Dx/Rx/DC Orders Clinical Impression: Chest pain Instructions: Chest Pain [facility] Ch Prescriptions: No Action albuterol sulfate [Ventolin HFA] 1 INHALER inhaler 1 - 2 puff inhalation Q4H PRN PRN (Reason: Wheezing) Qty: 1 0RF Primary Care Provider: Care Physician,No Primary Referrals: Adams Cartagena MD [Med Staff - Diesel Fitter Mechanic] - Activity Restrictions/Additional Instructions: Thank you for trusting us with your care today! Please take Tylenol (2 pills, 650 mg), ibuprofen (2 pills, 400 mg) every 6 hoursas needed for pain and fever control. Please return to the emergency department if your symptoms change or worsen. Please follow with your primary care physician for further outpatient evaluationand management. Disposition Disposition: Home, Self Care What to do if you have Problems For any increased pain, shortness of breath, bleeding, nausea or vomiting, chestpain, or any unexpected problems, contact your Primary Care Provider. Call [facility] ([phone]) or report to the closest Emergency Room. Call 911 if necessary. 03/08/23 1621 <Electronically signed by Chad Winkler DO> Cosigner Signature (if applicable): CC: No Primary Care Physician ~ Signed [facility] Work Phone: [phone]) 882-891905-14-2023 History of Present illness Narrative* Marylu Delaney APRN.CNP - 03/08/2023 12:23 PM EDT Came in with complaints of heavy tight chest pain on the left side. Patient says it started yesterday. Patient also said he is having a significant amount of blood in his stool more blood than feces.At this time patient is being referred to the emergency room for full work-up. Patient was okay with this care plan and wants to take himself. [facility] Ann [facility] February 19, 2023 9:03pm Note Date/Time February 19, 2023 7:0 6pm [facility] Medical Records Department [address] [place] [address] Emergency Department Summary 02/19/23 MR#: [id number] Acct: [id number] Name: RANDYDARIN HUGHES KEYUR Rep #:[id number] : 1995 27 From: Ryley Ann DO PCP: Care Physician,No Primary Status :REG ER Location: ED HPI History of Present Illness Chief Complaint: Shortness of Breath Narrative Narrative: 27-year-old male presenting with shortness of breath. Patient states he has been short of breath since yesterday. He feels like someone is standing on his chest. He does have a slight cough. He has dyspnea on exertion. Patient states he smokes a pack of cigarettes a day. He has history of bronchitis. No history of COPD or asthma. Has not had a fever or chills. He does state that he was woken up multiple times last night with shortness of breath and a feelingof being hot. Patient denies cardiac history. No history of DVT/PE and no risk factors. [facility] Medical History Asthma attack Liver abscess Home Medications hydrocodone-acetaminophen 5-325mg 5mg-325mg 1 tab PO Q6H PRN pain 3 days #10 tabs 04/19/22 [Rx Last Taken Unknown] prednisone 20 mg tablet 60 mg PO DAILY #15 tabs 04/19/22 [Rx Last Taken Unknown] albuterol sulfate 90 mcg/actuation aerosol inhaler (Ventolin HFA) 1 - 2 puff inhalation Q4H PRN PRN Wheezing ##1 09/02/22 [Rx Last Taken Unknown] albuterol sulfate 90 mcg/actuation aerosol inhaler (Ventolin HFA) 1 - 2 puff inhalation Q4H PRN PRN Wheezing #8.5 grams 02/19/23 [Rx Last Taken Unknown] prednisone 50 mg tablet 50 mg PO DAILY #5 tabs 02/19/23 [Rx Last Taken Unknown] Allergy/AdvReac Type Severity Reaction Status Date / Time amoxicillin Allergy Rash Verified 02/19/23 17:41 Penicillins Allergy Rash Verified 02/19/23 17:41 Surgical History Hx of appendectomy Social History Smoking Status: Current every day smoker tobacco type: cigarettes ROS ROS ED Constitutional Constitutional ED: Reports chills and sweats; Denies fever(s) Eyes Eyes: Denies change in vision ENT ENT ED: Denies rhinorrhea, sore throat or other Cardiovascular Cardiovascular: Reports chest pain Respiratory/Chest Respiratory/Chest: Reports cough, dyspnea and dyspnea on exertion Gastrointestinal Gastrointestinal: Denies abdominal pain, nausea or vomiting Genitourinary Genitourinary ED: Denies dysuria or hematuria Musculoskeletal Musculoskeletal: Denies arthralgias or myalgias Integumentary Denies abscess Neurologic Neurologic: Denies headache(s) Psychiatric Psychiatric: Denies anxiety or depression EXAM Physical Exam Const Vital Signs: 02/19/23 17:39 02/19/23 17:49 02/19/23 19:33 Temperature 97 F L Temperature Source Temporal Pulse Rate 90 Respiratory Rate 20 H Respiratory Effort Short of Breath Respiratory Depth Deep Respiratory Pattern Normal Blood Pressure 154/103 H Blood Pressure Mean 120 Pulse Ox 94 93 Oxygen Delivery Method Room Air Room Air 02/19/23 19:33 02/19/23 19:20 02/19/23 20:02 Temperature Temperature Source Pulse Rate 82 95 Respiratory Rate 18 18 Respiratory Effort Respiratory Depth Respiratory Pattern Normal Blood Pressure 150/89 H Blood Pressure Mean 109 Pulse Ox 93 93 Oxygen Delivery Method Room Air Room Air Positive well nourished General Appearance ED: NAD; Negative for pallor HEENT Reports moist mucous membranes Eyes PERRL and EOMs intact bilaterally Neck no lymphadenopathy and supple Resp Resp Narrative: Slightly tachypneic. Patient speaking in full sentences. Auscultation: wheezes expiratory wheezes Cardio regular rate and regular rhythm GI non-tender Neuro oriented x3 and CN's II-XII intact bilaterally Sensorium / Orientation: alert Psych mental status grossly normal Skin no wounds General Skin Exam: Negative for jaundice or pallor MDM MDM MDM Narrative Medical decision making narrative: Patient presenting shortness of breath. His symptoms started last evening. He also complains of chest pain as if somebody standing on his chest. Is been constant since last evening. He smokes a pack of cigarettes per day. No cardiac history. No DVT/PE history. Patient wheezing on examination. He is treated with Solu-Medrol 125, breathing treatments. Differential at this point includes pneumonia, COVID, influenza, ACS, bronchitis. CBC to assess white blood cell count, hemoglobin, platelets, differential. BMP to assess renal function, electrolytes, glucose. High-sensitivity troponin and EKG to assess for cardiac source. Chest x-ray was also obtained. As for rapid COVID and influenza are negative. Chest x-ray my interpretation shows no acute cardiopulmonary process. EKG on my interpretation is a normal sinus rhythm witha ventricular rate of 80 bpm without sign of ischemic change or ectopy. CBC shows slight leukocytosis 16.1. Hemoglobin hemoconcentrated at 17.3. Plateletsare normal. Creatinine 1.59 and near baseline. Electrolytes unremarkable. High-sensitivity troponin is 9 after greater than 12 hours of chest pain. I do not believe he needs a delta troponin. EKG on my interpretation shows a normal sinus rhythm with a ventricular rate of 80 bpm without sign of ischemia or ectopy. I have low clinical suspicion for PE. Patient reevaluated after breathing treatments. I will ambulate him with a pulse ox. Patient ambulated on pulse ox maintained sats of 93%. Will be discharged home with prednisone andalbuterol. Return precautions discussed. Impression: 1. Acute bronchitis Lab Data Labs: Laboratory Results - last 24 hr 02/19/23 02/19/23 19:15 19:15 WBC 16.1 H RBC 5.15 Hgb 17.3 H Hct 49.2 MCV 95.5 H MCH 33.6 H MCHC 35.2 RDW Std Deviation 41.1 RDW Coeff of Maryanne 11.7 Plt Count 256 MPV 10.1 Immature Gran % (Auto) 0.600 Neut % (Auto) 78.7 H Lymph % (Auto) 12.2 L [place] % (Auto) 6.6 Eos % (Auto) 1.5 Baso % (Auto) 0.4 Absolute Neuts (auto) 12.7 H Absolute Lymphs (auto) 1.96 Nucleated RBC % 0 Sodium 138 Potassium 3.7 Chloride 108 H Carbon Dioxide 25.0 Anion Gap 5 BUN 17 Creatinine 1.59 H Estim Creat Clear Calc 72.06 Est GFR (MDRD) Af Amer 67 Est GFR (MDRD) Non-Af 56 L BUN/Creatinine Ratio 10.7 Glucose 86 Calcium 9.3 Troponin I High Sens 9 Radiography Diagnostic Testing: Clinical Impression(s) from Imaging Studies Chest X-Ray 02/19/23 17:48 IMPRESSION: No radiographic evidence of acute cardiopulmonary disease. Electronically Signed: Mark Giraldo MD at 18:36 EDT Reading Location ID and State: [facility] / [place] , Service support , Discharge Plan Triage Chief Complaint: Shortness of Breath ED Provider: Ryley Ann Dx/Rx/DC Orders Instructions: ED Bronchitis with Wheezing (Adult) Prescriptions: New prednisone 50 mg tablet 50 mg PO DAILY Qty: 5 0RF albuterol sulfate [Ventolin HFA] 90 mcg/actuation HFA aerosol inhaler 1 - 2 puff inhalation Q4H PRN PRN (Reason: Wheezing) Qty: 8.5 0RF No Action hydrocodone-acetaminophen 5-325 mg tablet 1 tab PO Q6H PRN (Reason: pain) 3 Days Qty: 10 0RF prednisone 20 mg tablet 60 mg PO DAILY Qty: 15 0RF albuterol sulfate [Ventolin HFA] 1 INHALER inhaler 1 - 2 puff inhalation Q4H PRN PRN (Reason: Wheezing) Qty: 1 0RF Primary Care Provider: Care Physician,No Primary Referrals: Basilio Dietz DO [Med Staff - Diesel Fitter Mechanic] - 3-5 Days Care Physician,No Primary [Primary Care Provider] - Disposition Disposition: Home, Self Care What to do if you have Problems For any increased pain, shortness of breath, bleeding, nausea or vomiting, chestpain, or any unexpected problems, contact your Primary Care Provider. Call [facility] ([phone]) or report to the closest Emergency Room. Call 911 if necessary. 02/19/232102 <Electronically signed by Ryley Ann DO> Cosigner Signature (if applicable): CC: No Primary Care Physician ~ Signed [facility] Work Phone: Evaluation noteNo assessment information available [facility] Work Phone: Evaluation note* Diagnosis Chest pain, unspecified type- Primary Bloody stool Blood in stool [facility] Diagnosis COVID-19- Primary Hypertension, unspecified type [facility]* Diagnosis Gouty arthritis of right great toe- [facility] Additional Instructions Your blood pressure reading is elevated today. It is very important that you follow-up to have this rechecked. Even if you feel fine, you need to have your blood pressure checked and maybe managed.[facility] Work Phone: Hospital Discharge instructions Additional Instructions Thank you for trusting us with your care today! Please take Tylenol (2 pills, 650 mg), ibuprofen (2 pills, 400 mg) every 6 hours as needed for pain and fever control. Please return to the emergency department if your symptoms change or worsen. Please follow with your primary care physician for further outpatient evaluation and management.[facility] Work Phone: Hospital Discharge instructions Additional Instructions 1. 2 puffs of inhaler every 2-4 hours while awake for the next 3 to 5 days and every 4-6 hours for shortness of breath or wheezing 2. Because you smoke you may have a cough up to 1 month. 3. Your blood pressure readings are elevated. You [facility] the [facility]ck [facility] Work Phone: Summary Purpose Family History No Family History Records Found Relationship Condition Age at Onset Recorded Date/T speedy Unknown Family History?Asthma Unknown March 052013 1:09pm Family History?Diabetes Unknown March 05, 2014 1:09pm Relationship Condition Age at Onset Recorded Date/T speedy Unknown Family History?Asthma Unknown March 052013 12:09pm Family History?Diabetes Unknown March 05, 2014 12:09pm Advance Directives No Advanced Directives Records Found Advance Directive Response Recorded Date/ Time Advance Directives No November 04, 2016 12:07am Living Will No April 19, 2022 1:01pm Power of Teacher Education Instructor No April 19 1:01pm Advance Directive Response Recorded Date/ Time Advance Directives No November 04, 2016 12:07am Living Will No February 19, 2023 5:49pm Power of Teacher Education Instructor No February 19 5:49pm Advance Directive Response Recorded Date/ Time Advance Directives No November 04, 2016 12:07am Living Will No March 08, 2023 1 2:39pm Power of Teacher Education Instructor No March 08, 2023 12:39pm Advance Directive Response Recorded Date/ Time Advance Directives No November 04, 2016 12:07am Living Will No May 25, 2023 11:19am Power of Teacher Education Instructor No May 25 11:19am Advance Directive Response Recorded Date/ Time Advance Directives No November 03, 2016 11:07pm Living Will No October 12, 2 023 7:28pm Power of Teacher Education Instructor No October 12, 2023 7:28pm Advance Directive Response Recorded Date/ Time Living Will No December 06 2 025 3:56am Do you have a Healthcare Power of Teacher Education Instructor? No December 06, 2024 3:56am Living Will No December 22, 2 025 3:13pm Do you have a Healthcare Power of Teacher Education Instructor? No December 22, 2024 3:13pm Do you have a Healthcare Power of Teacher Education Instructor? No March 30, 2025 1:08pm Advance Directives No November 04, 2016 12:07am Chief Complaint and Reason for Visit Chief Complaint GOUT Chief Complaint SOB Chief Complaint SOB CHEST PAIN Chief Complaint SOB CHEST PAIN FOOT PAIN Chief Complaint vomiting, dizziness Chief Complaint Admit Date ABDOMINAL PAIN December 06, 2024 2:37am L FOOT PAIN December 22, 2024 1:21pm SOB March 30, 2025 12:59 pm Additional Source Comments (unrecognized sect ion and content) No Status Records FoundNo Status Records FoundNo Status Records FoundNo Status Records FoundNo Status Records Found INFORMATION SOURCE (unrecogn ized section and content) DATE CREATED AUTHOR 04/16/2018 [facility] ([place]) DATE CREATED AUTHOR AUTHOR'S ORGANIZ ATION 08/01/2021 [facility] DATE CREATED AUTHOR AUTHOR'S ORGANIZ ATION 03/12/2024 [facility] DATE CREATED AUTHOR AUTHOR'S ORGANIZ ATION 11/05/2024 [facility] DATE CREATED AUTHOR AUTHOR'S ORGANIZ ATION 04/04/2025 [facility] Goals (unrecognized section and content) Goals may be documented in a n alternate sectionGoals may be documented in an alternate sectionGoals may be documented in an alternate sectionGoals may be documented in an alternate sectionGoals may be documented in an alternate sectionGoals may be documented in an alternate section Care Teams (unrecognized sec tion and content) Team Status: Active Member Role Status Dates No Primary Care Physician Family Provider Active No Primary Care Physician Primary Care Provider Active Team Status: Inactive Member Role Status Dates No Primary Care Physician Primary Care Provider Active Dr. Ryley Ann DO Emergency Provider Active Team Status: Inactive Member Role Status Dates No Primary Care Physician Primary Care Provider Active Dr. Ryley Ann DO Attending Provider, Emergency Provider Active Team Status: Inactive Member Role Status Dates No Primary Care Physician Primary Care Provider Active Dr. Chad Winkler DO Emergency Provider Active Team Status: Inactive Member Role Status Dates No Primary Care Physician Primary Care Provider Active Dr. Chad Winkler DO Attending Provider, Emergency P margie Active Team Status: Inactive Member Role Status Dates No Primary Care Physician Primary Care Provider Active Dr. Lakshmi Hayden DO Emergency Provider Active Team Status: Inactive Member Role Status Dates No Primary Care Physician Primary Care Provider Active Dr. Valeriy Mercer MD Emergency Provider Active Team Status: Active Member Role Status Dates No Primary Care Physician Primary Care Provider Active Team Status: Inactive Member Role Status Dates No Primary Care Physician Primary Care Provider Active Start: December 06, 2024 End: December 06, 2024 Dr. Darin Huang DO Attending Provider Active Start: December 06, 2024 End: December 06, 2024 Dr. Darin Huang DO Emergency Provider Active Start: December 06, 2024 End: December 06, 2024 Team Status: Inactive Member Role Status Dates No Primary Care Physician Primary Care Provider Active Start: December 22, 2024 End: December 22, 2024 Ryan Crump MD Attending Provider Active Star t: December 22, 2024 End: December 22, 2024 Ryan Crump MD Referring Provider Active Star t: December 22, 2024 End: December 22, 2024 Ryan Crump MD Emergency Provider Active Star t: December 22, 2024 End: December 22, 2024 Team Status: Inactive Member Role Status Dates No Primary Care Physician Primary Care Provider Active Start: March 30, 2025 End: March 30, 2025 Dr. Crzu Duarte DO Referring Provider Active Start: March 30, 2025 End: March 30, 2025 Dr. Cruz Duarte DO Emergency Provider Active Start: March 30, 2025 End: March 30, 2025 Source Comments (unrecognize d section and content) In the event this informatio n is protected by the Federal Confidentiality of Alcohol and Drug Abuse Patient Records regulations: The Federal rules restrict any use of the information to criminally investigate or prosecute any alcohol or drug abuse patient.[facility] Hospital[facility] the event this information is protected by the Federal Confidentiality of Alcohol and Drug Abuse Patient Records regulations: The Federal rules restrict any use of the information to criminally investigate or prosecute any alcohol or drug abuse patient.[facility] HospitalIn the event this information is protected by the Federal Confidentiality of Alcohol and Drug Abuse Patient Records regulations: The Federal rules restrict any use of the information to criminally investigate or prosecute any alcohol or drug abuse patient.[facility] Reason for Visit (unrecogniz ed section and content) Reason Comments Cough Cough, fever, SOB an d no smell or taste x 3 days Reason Comments Pain (foot) R foot redness, swel ling, painful x 2 days Specialty Diagnoses / Procedures Referred By Suze t Referred To Contact [facility] Diagnoses possible gout: swelling, pain x 2 days Procedures EST SAME DAY [facility] [address] [place] [address] Referral ID Status Reason Start Date Expiration Date Visits Requested Visits Authorized [id number] Pending Review Financial Clearance Required - Self Pay 03/10/2024 06/08/2024 1 1 FOR RECORDS PERTAINING TO PATIENTS WHO ARE OR HAVE BEEN ENROLLED IN A CHEMICAL DEPENDENCY/SUBSTANCEABUSE PROGRAM, SOME INFORMATION MAY BE OMITTED. This clinical summary was aggregated from multiple sources. Caution should be exercised in using it in the provision of clinical care. This summary normalizes information from multiple sources, and as a consequence, information in this document may materially change the coding, format and clinical context of patient data. In addition, data may be omitted in some cases. CLINICAL DECISIONS SHOULD BE BASED ON THE PRIMARY CLINICAL RECORDS. [facility] [employer] [facility]. provides no warranty or guarantee of the accuracy or completeness of information in this document.
--- NOTE | 2025-04-16 18:02 | EDS_ITS ---
HPI <PRADEEP Blake - Last Filed: 04/16/25 19:51> History of Present Illness Chief Complaint: Rash Narrative Narrative: Patient presenting today with a pruritic rash to his back, chest, and arms he has had over the past 2 days. He denies any exposure to known allergens or new soaps/body products. He denies any fevers or chills. He reports that he is healthy otherwise. PFSH <PRADEEP Blake - Last Filed: 04/16/25 19:51> PFSH Medical History Kidney disease Liver abscess Asthma attack Home Medications ?Medication ?Instructions ?Recorded ?Last Taken ?Type prednisone 20 mg tablet 60 mg (3 x 20 mg) PO DAILY # 12 10/12/23 Unknown Rx TABLETS dicyclomine 20 mg tablet 20 mg PO TID #20 tabs Unknown Rx ondansetron 4 mg disintegrating 4 mg PO Q6H PRN nausea and 12/06/24 Unknown Rx tablet vomiting #20 tabs prednisone 20 mg tablet 40 mg (2 x 20 mg) PO DAILY 7 days 12/22/24 Unknown Rx #14 tabs albuterol sulfate 90 mcg/actuation 2 puff inhalation Q 4H PRN PRN 03/30/25 Unknown Rx aerosol inhaler (Ventolin HFA) Wheezing ##1 prednisone 20 mg tablet 60 mg (3 x 20 mg) PO DAILY # 15 03/30/25 Unknown Rx TABLETS doxycycline hyclate 100 mg capsule 100 mg PO BID #10 c aps 04/16/25 Unknown Rx Allergy/AdvReac Type Severity Reaction Status Date / Time amoxicillin Allergy Hives Verified 04/16/25 17:29 Penicillins Allergy Hives Verified 04/16/25 17:29 Surgical History Hx of appendectomy Social History household members: spouse, children and none housing: homeless current occupational status: employed and unemployed Smoking Status: Current every day smoker tobacco type: cigarettes ROS <PRADEEP Blake - Last Filed: 04/16/25 19:51> ROS ED Constitutional Constitutional ED: Denies chills or fever(s) Cardiovascular Cardiovascular: Denies chest pain Respiratory/Chest Respiratory/Chest: Denies dyspnea Gastrointestinal Gastrointestinal: Denies abdominal pain, nausea or vomiting Integumentary Reports rash Neurologic Neurologic: Denies paresthesias EXAM <PRADEEP Blake - Last Filed: 04/16/25 19:51> Physical Exam Const Vital Signs: 04/16/25 17:28 04/16/25 17:31 04/16/25 18:09 Temperature 97.9 F 98.2 F Temperature Source Oral Pulse Rate 75 82 Respiratory Rate 16 16 Blood Pressure 202/78 H 179/133 H 174/108 H Blood Pressure Mean 119 148 130 Pulse Ox 98 100 Oxygen Delivery Method Room Air Positive well nourished, well developed and no apparent distress General Appearance ED: well developed HEENT Reports normocephalic and head/scalp atraumatic Mouth ED: Yes moist mucous membranes normal Eyes PERRL and EOMs intact bilaterally Neck full ROM and supple Chest Wall inspection of chest normal Resp normal respiratory effort and clear to auscultation bilaterally Cardio regular rate and regular rhythm GI soft to palpation, non-tender, non-distended and no masses Back/Spine normal ROM and normal to inspection Extremity normal to inspection and full ROM Neuro oriented x3, CN's II-XII intact bilaterally, moves all extremities, no focal mo tor deficits and no sensory deficits noted Sensorium / Orientation: awake and alert Psych mental status grossly normal and thought process normal Skin Skin Narrative: Papular rash consistent with folliculitis to the arms, trunk, and back. No warmth, purulence, fluctuance. <Dr. Valeriy Carlton MD - Last Filed: 04/16/25 20:23> Physical Exam Const Vital Signs: 04/16/25 17:28 04/16/25 17:31 04/16/25 18:09 Temperature 97.9 F 98.2 F Temperature Source Oral Pulse Rate 75 82 Respiratory Rate 16 16 Blood Pressure 202/78 H 179/133 H 174/108 H Blood Pressure Mean 119 148 130 Pulse Ox 98 100 Oxygen Delivery Method Room Air MDM <PRADEEP Blake - Last Filed: 04/16/25 19:51> MDM MDM Narrative Medical decision making narrative: Patient presenting today due to a pruritic papular rash to his arms, chest, abdomen, and upper back he has had over the past 2 days. He is otherwise nontoxic-appearing and afebrile. He admits that he has been sweating a lot, it has been very hot outside. His exam is consistent with folliculitis. We will place him on a course of doxycycline given his penicillin allergy. Encouraged good hygiene with antibacterial soap. drawer hardware worker did come and give him resources on a PCP referral and prescription assistance given he does not have insurance. Return instructions were discussed and patient discharged home in stable condition. <Dr. Valeriy Carlton MD - Last Filed: 04/16/25 20:23> [facility] MDM Narrative Medical decision making narrative: Patient presenting today due to a pruritic papular rash to his arms, chest, abdomen, and upper back he has had over the past 2 days. He is otherwise nontoxic-appearing and afebrile. He admits that he has been sweating a lot, it has been very hot outside. His exam is consistent with folliculitis. We will place him on a course of doxycycline given his penicillin allergy. Encouraged good hygiene with antibacterial soap. drawer hardware worker did come and give him resources on a PCP referral and prescription assistance given he does not have insurance. Return instructions were discussed and patient discharged home in stable condition. Dr. Crump: I have personally performed a face to face assessment of the patient and have reviewed the MARY JO Note. I performed a substantive portion of the visit including all aspects of the following. My jeffries findings include: History is patient presents with a rash to his extremities, torso. This been present for last 2 days. He states he sweats heavily at work. He states he has no means of filling any prescriptions. He states the rash is slightly pruritic. He has no other symptoms or complaints. Exam is exam is consistent with folliculitis. Since this is widespread he was treated with doxycycline since he has allergy to penicillin. craft manager was consulted to help with getting assistance to fill his prescription and referral to Medical Decision Making: Generalized folliculitis. He was discharged home with appropriate home care instruction antibiotics. Other additions or changes: [None] Management Discussion w/another healthcare provider: drawer hardware worker/Case management (For prescription assistance and establishing with local physician.) Discharge Plan Triage Chief Complaint: Rash ED Midlevel Provider: Olesya Mendoza ED Provider: Valeriy Carlton Dx/Rx/DC Orders Clinical Impression: Folliculitis Instructions: ED Folliculitis Prescriptions: New doxycycline hyclate 100 mg capsule 100 mg PO BID Qty: 10 0RF No Action prednisone 20 mg tablet 60 mg PO DAILY Qty: 12 0RF ondansetron 4 mg tablet,disintegrating 4 mg PO Q6H PRN (Reason: nausea and vomiting) Qty: 20 0RF dicyclomine 20 mg tablet 20 mg PO TID Qty: 20 0RF prednisone 20 mg tablet 40 mg PO DAILY 7 Days Qty: 14 0RF prednisone 20 mg tablet 60 mg PO DAILY Qty: 15 0RF albuterol sulfate [Ventolin HFA] 90 mcg/actuation HFA aerosol inhaler 2 puff inhalation Q4H PRN PRN (Reason: Wheezing) Qty: 1 0RF Rx Instructions: dispense with spacer Stand Alone Forms: ED Work / School Excuse Primary Care Provider: Care Physician,No Primary Referrals: [facility] [Provider Group] - 5-7 Days Care Physician,No Primary [Primary Care Provider] - Activity Restrictions/Additional Instructions: Practice good hygiene, keep your skin clean and dry, use an antibacterial soap to wash when you shower. Follow-up with the clinic I referred you to if no improvement. Return for any worsening symptoms. Print Language: Arabic Disposition Disposition: Home, Self Care Discharge Date/Time: 04/16/25 18:14
--- NOTE | 2025-04-16 18:05 | CM.ED ---
Social Work Date of referral: 04/16/2025 Reason for referral: Resources needed and no Primary Care Physician Referred by: ED Doctor Patient provided consent to social work visit. leather production worker provided patient with an abundance of various resource lists and cards for prescription discount savings as well as a handout for the [facility] for PCP, dental and case management services which patient accepted and expressed appreciation for. No other needs identified at this time. Na Narayan, CHILD CARE CENTRE MANAGER, HOMEMAKER [employer]
[2025-04-16] MEDS: Doxycycline 100 MG CAPSULE PO (18:08)
[2025-04-16 18:09] VITALS: BP 174/108; PULSE 82; RESP 16; TEMP 36.8; O2SAT 100
== END 2025-04-16 18:14 | disposition home or self-care (01) ==
PROVIDERS: Emergency Provider Emergency Medicine; Visit Provider Emergency Medicine
DX: L73.9 Follicular disorder, unspecified (principal); F17.210 Nicotine dependence, cigarettes, uncomplicated
CPT/HCPCS: 99282

== ENCOUNTER 2025-04-21 07:47 | Emergency (ER) | payer SELFPAY ==
[2025-04-21 07:49] VITALS: BP 211/100; PULSE 80; RESP 16; TEMP 36.9; O2SAT 100; BMI 43.0
--- NOTE | 2025-04-21 08:22 | RAD_ITS ---
PROCEDURE: ANKLE MIN 3 VIEWS 04/21/2025 REASON FOR EXAM: PAIN TECHNIQUE: ANKLE MIN 3 VIEWS COMPARISON: None FINDINGS: Bones: No fracture seen. Joints: Normal alignment. Mortise appears intact. No effusion. Soft tissues: Soft tissues are unremarkable. Other: RAD/Ankle min 3 Views IMPRESSION: NEGATIVE ANKLE SERIES Reading Location: [id number]
--- NOTE | 2025-04-21 08:22 | VDLE_ITS ---
Reason For Study Reason For Study: RLE PAin RIGHT GSV is normal. CFV is compressible, spontaneous, phasic, competent and demonstrates normal augmentation. FV is compressible, spontaneous, phasic, competent and demonstrates normal augmentation. POP V is compressible, spontaneous, phasic, competent and demonstrates normal augmentation. T/P Trunk is compressible. PTV is compressible. RT PerV is compressible. Procedure This is a venous duplex using B-mode, color flow and spectral Doppler. Exam performed portable in ED. The exam was diagnostic. A preliminary report was called and/or faxed to Dr. Maloney. VL/Venous Duplex US, Unilateral Interpretation Summary Deep veins of the right lower extremity are patent and compressible segmentally . There is no evidence of right lower extremity deep vein thrombosis. Valvular competence appears intact within the p roximal deep venous system on the right . The right great saphenous vein appears patent and compressible segmentally. Ordering Physician: Sung Maloney Referring Physician: N/A Performed By: Shadi Jackson RVT
--- NOTE | 2025-04-21 08:23 | ED.VIS.LOWEX ---
HPI History of Present Illness Chief Complaint: Lower Extremity Injury Informant: patient and EMS Narrative Narrative: 29-year-old male presenting with severe right lower extremity pain that he woke up with 3 hours ago. No injury. No fevers or chills. He went to bed and it felt okay. Seems to be centered at his right ankle, but pain radiating up toward the knee. Cannot move the ankle due to pain hence calling EMS. States he has a history of gout that has had in his toes before. He denies any fevers or chills or recent illness or systemic symptoms. No history of DVT or PE. [facility] Medical History (Updated 04/21/25 @ 11:[address] Sung Maloney MD) Gout History of substance abuse Asthma Kidney disease Liver abscess Asthma attack Home Medications ?Medication ?Instructions ?Recorded ?Last Taken ?Type albuterol sulfate 90 mcg/actuation 2 puff inhalation Q4H PRN PRN 03/30/25 Unknown Rx aerosol inhaler (Ventolin HFA) Wheezing ##1 amlodipine 10 mg tablet 10 mg PO DAILY #30 tabs 04/21/25 Unknown Rx hydrocodone-acetaminophen 5-325mg 1 tab PO Q4H PRN PRN Pain 2 days 04/21/25 Unknown Rx 5mg-325mg #10 TABLETS prednisone 10 mg tablet 10 mg PO UD #30 tabs 04/21/25 Unknown Rx Allergy/AdvReac Type Severity Reaction Status Date / Time amoxicillin Allergy Hives Verified 04/21/25 07:49 Penicillins Allergy Hives Verified 04/21/25 07:49 Surgical History Hx of appendectomy Social History household members: spouse, children and none housing: homeless current occupational status: employed and unemployed Smoking Status: Current every day smoker tobacco type: cigarettes ROS ROS ED Constitutional Constitutional ED: Denies chills or fever(s) Eyes Eyes: Denies change in vision or diplopia ENT ENT ED: Denies rhinorrhea or sore throat Cardiovascular Cardiovascular: Denies chest pain or palpitations Respiratory/Chest Respiratory/Chest: Denies cough or dyspnea Gastrointestinal Gastrointestinal: Denies abdominal pain, diarrhea, nausea or vomiting Genitourinary Genitourinary ED: Denies dysuria or hematuria Musculoskeletal Musculoskeletal: Reports extremity pain; Denies neck pain Integumentary Denies Abrasions, rash or wounds Neurologic Neurologic: Denies paresthesias or weakness Psychiatric Psychiatric: Reports anxiety; Denies suicidal thoughts EXAM Physical Exam Const Vital Signs: 04/21/25 07:49 04/21/25 10:44 04/21/25 10:44 Temperature 98.5 F 97.9 F Temperature Source Oral Pulse Rate 80 79 Respiratory Rate 16 16 Blood Pressure 211/100 H 186/109 H 186/109 H Blood Pressure Mean 137 134 134 Pulse Ox 100 97 Oxygen Delivery Method Room Air Positive well nourished and well developed Constitutional Narrative: In painful distress. General Appearance ED: well developed HEENT Reports moist mucous membranes normocephalic and atraumatic Eyes PERRL and EOMs intact bilaterally Neck full ROM and supple Resp normal respiratory effort and clear to auscultation bilaterally Cardio regular rate, regular rhythm and no murmurs GI non-tender and non-distended Auscultation: normoactive bowel sounds Palpation: soft Back/Spine normal ROM and normal to inspection General Back: other FROM Extremity Extremity Narrative: Refuses to move right ankle due to pain. Severe pain with attempting to passively range it. The ankle is mildly swollen, and just barely touching it reproduces severe pain. Less tender in the calf but the entire posterior aspect of the lower leg is tender, excluding the popliteal fossa. All compartments of the lower leg and thigh are soft and nondistended. There is no pedal edema above the ankle. The ankle is warm compared with the contralateral ankle. There is no erythema. Strong DP pulse 2+ bilaterally. Brisk cap refill bilaterally. No rash or lesions. Achilles intact by palpation. Foot and calcaneus nontender. Good range at the knee without pain there and no tenderness in the thigh. No palpable cords. Neuro oriented x3, no focal motor deficits and no sensory deficits noted Sensorium / Orientation: alert Motor Exam: strength 5/5 throughout Psych thought process normal Mood & Affect: anxious Skin no wounds Rashes: no rashes MDM MDM MDM Narrative Medical decision making narrative: I suspect this is gout. Spontaneous onset pain in the extremity it is focused at the joint and the ankle, but he has pain going up the calf which is very tender as well. My suspicion is that it is all ankle but I am also getting a venous scan of the veins to rule out DVT here. In the meantime we will give him Toradol, morphine, and some colchicine to see if that helps his pain which is quite severe. Three-view x-ray of the right ankle is negative for my interpretation and according to the ultrasound biological science technician fish, the DVT scan is negative. These medications helped his pain significantly. He does have a significant leukocytosis, however his ESR is normal his CRP is just barely out of range elevated. He has a creatinine of 2.10, but looking at old labs, he was 1.84 couple years ago so that is not new. When I asked him about this, he states yes, I have had chronic kidney disease since I was young and my blood pressure is always high but when I asked him prior to giving him Toradol if he had any history of kidney problems he said no. He and I both agree, he probably told us that accidentally because he was in a lot of pain. I did review his records prior to giving him Toradol and there is no documented history of chronic kidney disease in his chart here at this hospital, but he did tell the nurse later who then placed it into his chart. His blood pressure is persistently elevated, and he has no symptoms from that. His uric acid is 10.8, and in context this is all consistent with gout. He can move the ankle little better but it still hurts to do so. I discussed the low possibility of septic arthritis given his inflammatory indicators but high white blood count, but am not able to rule it out without arthrocentesis. He adamantly refuses arthrocentesis. He is okay with attempting treatment for gout with prednisone, I gave him an initial dose here, he understands that if this is infection that that might make it worse and he should come back immediately, but in the meantime we will give him an Carlos wrap crutches, steroid and analgesic prescriptions and advised him to follow-up or return if worse he is comfortable with that plan and understands risks. He states he does not have a doctor but [facility] I reinforced the importance of following up because of his blood pressure, his kidney issues as he is at risk of becoming a dialysis patient if he does not get this controlled, and in addition to all of this, when his gout flareup is better, he may benefit from preventative treatment that needs to be started later. Lab Data Attestation: I reviewed the patient's lab results. Labs: Laboratory Results - last 24 hr 04/21/25 08:50 WBC 18.5 H RBC 4.98 Hgb 16.3 Hct 46.1 MCV 92.6 MCH 32.7 H MCHC 35.4 RDW Std Deviation 41.1 RDW Coeff of Maryanne 12.0 Plt Count 237 MPV 10.0 Immature Gran % (Auto) 0.300 Neut % (Auto) 87.3 H Lymph % (Auto) 7.0 L [place] % (Auto) 5.0 Eos % (Auto) 0.2 Baso % (Auto) 0.2 Absolute Neuts (auto) 16.2 H Absolute Lymphs (auto) 1.30 Nucleated RBC % 0 ESR 5 Sodium 137 Potassium 4.1 Chloride 105 Carbon Dioxide 21.1 Anion Gap 12 BUN 18 Creatinine 2.10 H Estim Creat Clear Calc 72.09 Est GFR (MDRD) Non-Af 43 L BUN/Creatinine Ratio 8.4 L Glucose 104 H Uric Acid 10.8 H Calcium 9.1 C-React Prot Ext Range 4.76 H Radiography Diagnostic Testing: Clinical Impression(s) from Imaging Studies Ankle X-Ray 04/21/25 08:22 IMPRESSION: NEGATIVE ANKLE SERIES Reading Location: [id number] Discharge Plan Triage Chief Complaint: Lower Extremity Injury ED Provider: Sung Maloney Dx/Rx/DC Orders Clinical Impression: Gouty arthritis of right ankle, Chronic kidney disease (CKD), Accelerated hypertension Instructions: Eating to Prevent Gout, ED Gout Prescriptions: New hydrocodone-acetaminophen 5-325 mg tablet 1 tab PO Q4H PRN PRN (Reason: Pain) 2 Days Qty: 10 0RF prednisone 10 mg tablet 10 mg PO UD Qty: 30 0RF Rx Instructions: Take 4 tablets daily for 3 days, then 3 daily for 3 days, then 2 daily for 3 days, then 1 a day for 3 days amlodipine 10 mg tablet 10 mg PO DAILY Qty: 30 0RF No Action albuterol sulfate [Ventolin HFA] 90 mcg/actuation HFA aerosol inhaler 2 puff inhalation Q4H PRN PRN (Reason: Wheezing) Qty: 1 0RF Rx Instructions: dispense with spacer Primary Care Provider: Care Physician,No Primary [facility] - As soon as possible Activity Restrictions/Additional Instructions: If the steroids make your ankle worse or you develop a fever, stop them and return to the ER immediately. Print Language: Mohawk Disposition Disposition: Home, Self Care
[2025-04-21] MEDS: Morphine 4 MG/ML Syringe IV (08:49)
[2025-04-21] MEDS: Ketorolac 30 MG/ML Syringe IV (08:49)
[2025-04-21 09:06] LABS: Absolute Neutrophil Count 16.2 X10^3/uL (2.0-7.7); Basophil# 0.04 X10^3/uL; Basophil% 0.2 % (0-1); Eosinophil# 0.04 X10^3/uL; Eosinophils% 0.2 % (0-5); Hematocrit 46.1 % (40-54); Hemoglobin 16.3 g/dL (13.0-16.5); Mean Corp Hgb Conc 35.4 g/dL (32-36); Mean Corpuscular Hgb 32.7 pg (27.0-32.0); Mean Corpuscular Volume 92.6 fL (80-94); Monocyte# 0.93 X10^3/uL; NRBC Flagged by Analyzer 0 % (0-5); Neutrophil # 16.18 X10^3/uL (2.7-7.7); Neutrophil % 87.3 % (47-70); Platelet Count 237 K/mm3 (150-450); RBC Distribution Width SD 41.1 fl (35.1-43.9); Red Blood Count 4.98 M/mm3 (4.6-6.2); White Blood Count 18.5 K/mm3 (4.4-11.0)
[2025-04-21] MEDS: Colchicine 0.6 MG TABLET 1.2 MG PO (09:22)
[2025-04-21 09:30] LABS: Erythrocyte Sedimentation Rate 5 mm/hr (0-20)
[2025-04-21 09:39] LABS: CRP 4.76 mg/L (0.0-3.0); Uric Acid 10.8 mg/dL (3.5-7.2)
[2025-04-21 09:46] LABS: Anion Gap 12 (5-15); BUN 18 mg/dL (4-19); BUN/Creat Ratio 8.4 RATIO (10-20); Calcium,Total 9.1 mg/dL (7.6-11.0); Carbon Dioxide 21.1 mmol/L (21.0-32.0); Chloride 105 mmol/L (98-108); EST Glomerular Filtration Rate 43 (>60); Estimated Creatinine Clearance 72.09 ml/min (50-250); Glucose 104 mg/dL (70-99); Potassium 4.1 mmol/L (3.3-5.1); Sodium Level 137 mmol/L (133-145)
[2025-04-21] MEDS: MethylPREDNISolone 125 MG/2 ML Vial IV (10:43)
[2025-04-21 10:44] VITALS: BP 186/109; PULSE 79; RESP 16; TEMP 36.6; O2SAT 97
== END 2025-04-21 11:06 | disposition home or self-care (01) ==
PROVIDERS: Emergency Provider Emergency Medicine; Visit Provider Emergency Medicine
DX: M10.071 Idiopathic gout, right ankle and foot (principal); N18.9 Chronic kidney disease, unspecified; I12.9 Hypertensive chronic kidney disease with stage 1 through stage 4 chronic kidney disease, or unspecified chronic kidney disease; F17.210 Nicotine dependence, cigarettes, uncomplicated; J45.909 Unspecified asthma, uncomplicated; Z79.51 Long term (current) use of inhaled steroids; Z59.00 Homelessness unspecified
CPT/HCPCS: 73610; 80048; 84550; 85025; 85652; 86140; 93971; 96374; 96375; 96376; 99285; A4216

== ENCOUNTER 2025-04-28 13:17 | Emergency (ER) | payer SELFPAY ==
[2025-04-28 13:18] VITALS: BP 156/110; PULSE 98; RESP 16; TEMP 36.8; O2SAT 99; BMI 43.2
--- NOTE | 2025-04-28 14:41 | RAD_ITS ---
EXAM: XR Left Foot Complete, 3 or More Views CLINICAL INDICATION: PAIN TECHNIQUE: Frontal, lateral and oblique views of the left foot. COMPARISON: No relevant prior studies available. FINDINGS: BONES/JOINTS: See below. SOFT TISSUES: Soft tissue swelling without acute fracture. No radiopaque foreign body. RAD/Foot min 3 Views IMPRESSION: 1. Soft tissue swelling without acute fracture. 2. If symptoms persist, further evaluation with CT is recommended. Reading Location: [id number]
--- NOTE | 2025-04-28 14:41 | RAD_ITS ---
EXAM: XR Left Foot Complete, 3 or More Views CLINICAL INDICATION: PAIN TECHNIQUE: Frontal, lateral and oblique views of the left foot. COMPARISON: No relevant prior studies available. FINDINGS: BONES/JOINTS: See below. SOFT TISSUES: Soft tissue swelling without acute fracture. No radiopaque foreign body. RAD/Foot min 3 Views IMPRESSION: 1. Soft tissue swelling without acute fracture. 2. If symptoms persist, further evaluation with CT is recommended. Reading Location: [id number]
--- NOTE | 2025-04-28 14:43 | EDS_ITS ---
HPI <PRADEEP Monroe - Last Filed: 04/28/25 16:15> History of Present Illness Chief Complaint: Lower Extremity Injury Narrative Narrative: 29-year-old male states a few days ago he was playing basketball and jumped to make a shot and then landed on his left foot awkwardly. He developed pain and swelling in the left ankle and foot. He has tried elevating and icing it but the swelling will go down. He states if he ties his shoe really tight we he can walk on it. No weakness or numbness or tingling. PFSH <PRADEEP Monroe - Last Filed: 04/28/25 16:15> [facility] [place] Medical History (Updated 04/28/25 @ 15:44 by PRADEEP Monroe) Gout History of substance abuse Asthma Kidney disease Liver abscess Asthma attack Home Medications ?Medication ?Instructions ?Recorded ?Last Taken ?Type albuterol sulfate 90 mcg/actuation 2 puff inhalation Q 4H PRN PRN 03/30/25 Unknown Rx aerosol inhaler (Ventolin HFA) Wheezing ##1 amlodipine 10 mg tablet 10 mg PO DAILY #30 tabs 03/27 05/19 Unknown Rx hydrocodone-acetaminophen 5-325mg 1 tab PO Q4H PRN PRN Pain 2 days 04/21/25 Unknown Rx 5mg-325mg #10 TABLETS prednisone 10 mg tablet 10 mg PO UD #30 tabs 5 Unknown Rx hydrocodone-acetaminophen 5-325mg 1 tab PO Q6H PRN PRN Pain 3 days 04/28/25 Unknown Rx 5mg-325mg #10 TABLETS Allergy/AdvReac Type Severity Reaction Status Date / Time amoxicillin Allergy Hives Verified 04/28/25 13:19 Penicillins Allergy Hives Verified 04/28/25 13:19 Surgical History Hx of appendectomy Social History household members: spouse, children and none housing: homeless current occupational status: employed and unemployed Smoking Status: Current every day smoker tobacco type: cigarettes ROS <PRADEEP Monroe - Last Filed: 04/28/25 16:15> ROS ED ROS Narrative Neuro: Negative for motor/sensory dysfunction. Skin: Negative for wound. Musc: Positive for left ankle and foot pain, swelling, trauma. EXAM <PRADEEP Monroe - Last Filed: 04/28/25 16:15> Physical Exam Narrative Exam Narrative: CONST: Patient sitting in no acute distress. EYES: Normal inspection. NECK: Normal inspection. RESP: No respiratory distress, CTAB. CVS: Regular rate and rhythm, no murmur, no gallop. SKIN: Color normal, no rash, warm, dry, intact. EXTREMITIES: Soft tissue swelling of the left lateral ankle and proximal lateral foot. Tender over the proximal 4th and 5th metatarsals without deformity or crepitus. Achilles intact. Normal sensation. 2+ DP pulse. NEURO: Alert and answering questions appropriately. PSYCH: Normal affect. Const Vital Signs: 04/28/25 13:18 04/28/25 16:05 Temperature 98.3 F 98.3 F Temperature Source Oral Pulse Rate 98 98 Respiratory Rate 16 16 Blood Pressure 156/110 H 133/90 H Blood Pressure Mean 125 104 Pulse Ox 99 99 <Dr. Tha Brooks DO - Last Filed: 04/28/25 16:04> Physical Exam Const Vital Signs: 04/28/25 13:18 04/28/25 16:05 Temperature 98.3 F 98.3 F Temperature Source Oral Pulse Rate 98 98 Respiratory Rate 16 16 Blood Pressure 156/110 H 133/90 H Blood Pressure Mean 125 104 Pulse Ox 99 99 [facility] <PRADEEP Monroe - Last Filed: 04/28/25 16:15> [facility] Narrative Medical decision making narrative: Differential includes ankle and foot sprain versus fracture The 29-year-old male injured his left ankle 2 days ago while playing basketball. He has pain and swelling over the lateral ankle and foot. He is especially tender over the proximal foot. Neurovascularly intact. X-rays are negative. He already has crutches and I provided an Aircast. I discussed RICE protocol. He has been taking Tylenol without much relief and cannot take NSAIDs due to CKD. I prescribed a few Hagerman for breakthrough pain. I provided podiatry follow-up and he was discharged in stable condition. Radiography Diagnostic Testing: Clinical Impression(s) from Imaging Studies Foot X-Ray 04/28/25 14:41 IMPRESSION: 1. Soft tissue swelling without acute fracture. 2. If symptoms persist, further evaluation with CT is recommended. Reading Location: [facility] Ankle X-Ray 04/28/25 15:00 IMPRESSION: 1. Soft tissue swelling without acute fracture. 2. If symptoms persist, further evaluation with CT is recommended. Reading Location: [facility] ED attending interpretation of left ankle shows no fracture or dislocation. ED attending interpretation of left foot shows no fracture or dislocation. <Dr. Tha Brooks, DO - Last Filed: 04/28/25 16:04> MDM Radiography Diagnostic Testing: Clinical Impression(s) from Imaging Studies Foot X-Ray 04/28/25 14:41 IMPRESSION: 1. Soft tissue swelling without acute fracture. 2. If symptoms persist, further evaluation with CT is recommended. Reading Location: [facility] Ankle X-Ray 04/28/25 15:00 IMPRESSION: 1. Soft tissue swelling without acute fracture. 2. If symptoms persist, further evaluation with CT is recommended. Reading Location: [facility] Treatment and Re-Evaluation Narrative: I have personally performed a face to face assessment of the patient and have reviewed the MARY JO Note. I performed a substantive portion of the visit including all aspects of the following. My jeffries findings include: History: Patient presents with left ankle injury that occurred 2 days ago. Patient states he was playing basketball and inverted his ankle. Patient states his pain is mainly over the lateral aspect of his left foot and ankle. Patient denies any paresthesias or weakness. Patient denies any head injury or loss of consciousness. Patient denies any other injuries. Exam: Vital signs are stable. Patient is afebrile. Patient is in no acute distress. Musculoskeletal exam reveals tenderness, edema, and ecchymosis over the lateral aspect of the left foot and ankle. There is no bony crepitance or step-off. There is no obvious deformity noted. Range of motion was limited in all motions of the left foot and ankle secondary to pain. Pedal pulses are equal bilaterally. Sensation was intact to light touch in all digits. Medical Decision Making: Differential diagnosis includes strain, sprain, and contusion. X-rays of the left foot will be obtained to assess for fracture. X- rays of the left ankle will be obtained to assess for fracture. X-rays of the left ankle were obtained. There are 3 views. On my independent interpretation, there is no acute fracture. There is no dislocation. There is some mild soft tissue swelling. Radiologist also interpreted the x-rays and agrees. X-rays of the left foot were obtained. There are 3 views. On my independent interpretation, there is no acute fracture. There is no dislocation. There is some mild soft tissue swelling. Radiologist also interpreted the x-rays and agrees. Patient was advised of his findings. Patient was given an Aircast. Patient was instructed to ice and elevate the left foot and ankle. Patient was instructed to follow-up with his primary care physician in 5 to 7 days. Patient understood and was agreeable with the plan. All questions were answered. Discharge Plan Triage Chief Complaint: Lower Extremity Injury ED Midlevel Provider: Kyara Segal ED Provider: Tha Brooks Dx/Rx/DC Orders Clinical Impression: Left ankle sprain Instructions: ED Ankle Sprain (Adult) Prescriptions: New hydrocodone-acetaminophen 5-325 mg tablet 1 tab PO Q6H PRN PRN (Reason: Pain) 3 Days Qty: 10 0RF No Action hydrocodone-acetaminophen 5-325 mg tablet 1 tab PO Q4H PRN PRN (Reason: Pain) 2 Days Qty: 10 0RF prednisone 10 mg tablet 10 mg PO UD Qty: 30 0RF Rx Instructions: Take 4 tablets daily for 3 days, then 3 daily for 3 days, then 2 daily for 3 days, then 1 a day for 3 days amlodipine 10 mg tablet 10 mg PO DAILY Qty: 30 0RF albuterol sulfate [Ventolin HFA] 90 mcg/actuation HFA aerosol inhaler 2 puff inhalation Q4H PRN PRN (Reason: Wheezing) Qty: 1 0RF Rx Instructions: dispense with spacer Stand Alone Forms: ED Work / School Excuse Primary Care Provider: Care Physician,No Primary Referrals: Emil Méndez DPM [Med Staff - Active Staff] - Care Physician,No Primary [Primary Care Provider] - Activity Restrictions/Additional Instructions: Rest, ice, elevate your foot to help decrease swelling. Take Tylenol as needed and use the Hagerman for breakthrough pain. Follow-up with the air press operator if it is not improving. Print Language: Kosovan Disposition Disposition: Home, Self Care Discharge Date/Time: 04/28/25 16:06
--- NOTE | 2025-04-28 14:43 | EDS_ITS ---
HPI <PRADEEP Monroe - Last Filed: 04/28/25 16:15> History of Present Illness Chief Complaint: Lower Extremity Injury Narrative Narrative: 29-year-old male states a few days ago he was playing basketball and jumped to make a shot and then landed on his left foot awkwardly. He developed pain and swelling in the left ankle and foot. He has tried elevating and icing it but the swelling will go down. He states if he ties his shoe really tight we he can walk on it. No weakness or numbness or tingling. PFSH <PRADEEP Monroe - Last Filed: 04/28/25 16:15> [facility] Medical History (Updated 04/28/25 @ 15:44 by PRADEEP Monroe) Gout History of substance abuse Asthma Kidney disease Liver abscess Asthma attack Home Medications ?Medication ?Instructions ?Recorded ?Last Taken ?Type albuterol sulfate 90 mcg/actuation 2 puff inhalation Q 4H PRN PRN 03/30/25 Unknown Rx aerosol inhaler (Ventolin HFA) Wheezing ##1 amlodipine 10 mg tablet 10 mg PO DAILY #30 tabs 03/27 05/19 Unknown Rx hydrocodone-acetaminophen 5-325mg 1 tab PO Q4H PRN PRN Pain 2 days 04/21/25 Unknown Rx 5mg-325mg #10 TABLETS prednisone 10 mg tablet 10 mg PO UD #30 tabs 5 Unknown Rx hydrocodone-acetaminophen 5-325mg 1 tab PO Q6H PRN PRN Pain 3 days 04/28/25 Unknown Rx 5mg-325mg #10 TABLETS Allergy/AdvReac Type Severity Reaction Status Date / Time amoxicillin Allergy Hives Verified 04/28/25 13:19 Penicillins Allergy Hives Verified 04/28/25 13:19 Surgical History Hx of appendectomy Social History household members: spouse, children and none housing: homeless current occupational status: employed and unemployed Smoking Status: Current every day smoker tobacco type: cigarettes ROS <PRADEEP Monroe - Last Filed: 04/28/25 16:15> ROS ED ROS Narrative Neuro: Negative for motor/sensory dysfunction. Skin: Negative for wound. Musc: Positive for left ankle and foot pain, swelling, trauma. EXAM <PRADEEP Monroe - Last Filed: 04/28/25 16:15> Physical Exam Narrative Exam Narrative: CONST: Patient sitting in no acute distress. EYES: Normal inspection. NECK: Normal inspection. RESP: No respiratory distress, CTAB. CVS: Regular rate and rhythm, no murmur, no gallop. SKIN: Color normal, no rash, warm, dry, intact. EXTREMITIES: Soft tissue swelling of the left lateral ankle and proximal lateral foot. Tender over the proximal 4th and 5th metatarsals without deformity or crepitus. Achilles intact. Normal sensation. 2+ DP pulse. NEURO: Alert and answering questions appropriately. PSYCH: Normal affect. Const Vital Signs: 04/28/25 13:18 04/28/25 16:05 Temperature 98.3 F 98.3 F Temperature Source Oral Pulse Rate 98 98 Respiratory Rate 16 16 Blood Pressure 156/110 H 133/90 H Blood Pressure Mean 125 104 Pulse Ox 99 99 <Dr. Tha Brooks DO - Last Filed: 04/28/25 16:04> Physical Exam Const Vital Signs: 04/28/25 13:18 04/28/25 16:05 Temperature 98.3 F 98.3 F Temperature Source Oral Pulse Rate 98 98 Respiratory Rate 16 16 Blood Pressure 156/110 H 133/90 H Blood Pressure Mean 125 [address] Ox [address] [facility] <PRADEEP Monroe - Last Filed: 04/28/25 16:15> [facility] Narrative Medical decision making narrative: Differential includes ankle and foot sprain versus fracture The 29-year-old male injured his left ankle 2 days ago while playing basketball. He has pain and swelling over the lateral ankle and foot. He is especially tender over the proximal foot. Neurovascularly intact. X-rays are negative. He already has crutches and I provided an Aircast. I discussed RICE protocol. He has been taking Tylenol without much relief and cannot take NSAIDs due to CKD. I prescribed a few Prescott for breakthrough pain. I provided podiatry follow-up and he was discharged in stable condition. Radiography Diagnostic Testing: Clinical Impression(s) from Imaging Studies Foot X-Ray 04/28/25 14:41 IMPRESSION: 1. Soft tissue swelling without acute fracture. 2. If symptoms persist, further evaluation with CT is recommended. Reading Location: [facility] Ankle X-Ray 04/28/25 15:00 IMPRESSION: 1. Soft tissue swelling without acute fracture. 2. If symptoms persist, further evaluation with CT is recommended. Reading Location: [facility] ED attending interpretation of left ankle shows no fracture or dislocation. ED attending interpretation of left foot shows no fracture or dislocation. <Dr. Tha Brooks, DO - Last Filed: 04/28/25 16:04> MDM Radiography Diagnostic Testing: Clinical Impression(s) from Imaging Studies Foot X-Ray 04/28/25 14:41 IMPRESSION: 1. Soft tissue swelling without acute fracture. 2. If symptoms persist, further evaluation with CT is recommended. Reading Location: [facility] Ankle X-Ray 04/28/25 15:00 IMPRESSION: 1. Soft tissue swelling without acute fracture. 2. If symptoms persist, further evaluation with CT is recommended. Reading Location: [facility] Treatment and Re-Evaluation Narrative: I have personally performed a face to face assessment of the patient and have reviewed the MARY JO Note. I performed a substantive portion of the visit including all aspects of the following. My jeffries findings include: History: Patient presents with left ankle injury that occurred 2 days ago. Patient states he was playing basketball and inverted his ankle. Patient states his pain is mainly over the lateral aspect of his left foot and ankle. Patient denies any paresthesias or weakness. Patient denies any head injury or loss of consciousness. Patient denies any other injuries. Exam: Vital signs are stable. Patient is afebrile. Patient is in no acute distress. Musculoskeletal exam reveals tenderness, edema, and ecchymosis over the lateral aspect of the left foot and ankle. There is no bony crepitance or step-off. There is no obvious deformity noted. Range of motion was limited in all motions of the left foot and ankle secondary to pain. Pedal pulses are equal bilaterally. Sensation was intact to light touch in all digits. Medical Decision Making: Differential diagnosis includes strain, sprain, and contusion. X-rays of the left foot will be obtained to assess for fracture. X- rays of the left ankle will be obtained to assess for fracture. X-rays of the left ankle were obtained. There are 3 views. On my independent interpretation, there is no acute fracture. There is no dislocation. There is some mild soft tissue swelling. Radiologist also interpreted the x-rays and agrees. X-rays of the left foot were obtained. There are 3 views. On my independent interpretation, there is no acute fracture. There is no dislocation. There is some mild soft tissue swelling. Radiologist also interpreted the x-rays and agrees. Patient was advised of his findings. Patient was given an Aircast. Patient was instructed to ice and elevate the left foot and ankle. Patient was instructed to follow-up with his primary care physician in 5 to 7 days. Patient understood and was agreeable with the plan. All questions were answered. Discharge Plan Triage Chief Complaint: Lower Extremity Injury ED Midlevel Provider: Kyara Segal ED Provider: Tha Brooks Dx/Rx/DC Orders Clinical Impression: Left ankle sprain Instructions: ED Ankle Sprain (Adult) Prescriptions: New hydrocodone-acetaminophen 5-325 mg tablet 1 tab PO Q6H PRN PRN (Reason: Pain) 3 Days Qty: 10 0RF No Action hydrocodone-acetaminophen 5-325 mg tablet 1 tab PO Q4H PRN PRN (Reason: Pain) 2 Days Qty: 10 0RF prednisone 10 mg tablet 10 mg PO UD Qty: 30 0RF Rx Instructions: Take 4 tablets daily for 3 days, then 3 daily for 3 days, then 2 daily for 3 days, then 1 a day for 3 days amlodipine 10 mg tablet 10 mg PO DAILY Qty: 30 0RF albuterol sulfate [Ventolin HFA] 90 mcg/actuation HFA aerosol inhaler 2 puff inhalation Q4H PRN PRN (Reason: Wheezing) Qty: 1 0RF Rx Instructions: dispense with spacer Stand Alone Forms: ED Work / School Excuse Primary Care Provider: Care Physician,No Primary Referrals: Emil Méndez DPM [Med Staff - Active Staff] - Care Physician,No Primary [Primary Care Provider] - Activity Restrictions/Additional Instructions: Rest, ice, elevate your foot to help decrease swelling. Take Tylenol as needed and use the Prescott for breakthrough pain. Follow-up with the preforms laminator if it is not improving. Print Language: Nauruan Disposition Disposition: Home, Self Care Discharge Date/Time: 04/28/25 16:06
--- OUTSIDE RECORDS SUMMARY | 2025-04-28 14:47 | XMS RPT_ITS | CCD ---
Author Organization [facility] Care Team Providers Care Java Tech Lead Name Role Phone PHYSICIAN, NONE Unavailable Unavailable JJ, VU Unavailable Unavailable [facility] Unavailable Unavai lable BENOIT MCKEON Admitting Unavailable AA NO PCP, NO PCP Primary Care Unavailable ANDBENOIT DO Attending Unavailable VALERIY MERCER E Attending Unavailable VALERIY MERCER Admitting Unavailable AA NO PCP, NO PCP Primary Care Unavailable Unavailable Primary Care Provider Unavailabl e Unavailable Primary Care Provider Unavailabl e NO FAMILY PHYSICIAN, 837 Primary Care Unavail able SIMON DRAPER, KAILYN Attending Unavailable MÓNICA SERRANO MD Admitting Unavailable Care Physician, No Primary Primary Care Provider Unavailable Dr. Chandana Huang DO Attending Provider Dr. Chandana Huang DO Emergency Provider Ryan Crump MD Attending Provider Ryan Crump MD Referring Provider Ryan Crump MD Emergency Provider Dr. Cruz Duarte DO Referring Provider Dr. Cruz Duarte DO Emergency Provider Care Physician, No Primary Primary Care Provider Unavailable Dr. Cruz Duarte DO Attending Provider Dr. Valeriy Mercer MD Emergency Provider Dr. Valeriy Mercer MD Attending Provider Dr. Sung Maloney MD Emergency Provider Care Physician, No Primary Primary Care Unava ilable Chandana Huang Attending Unavailable Ryan Crump Attending Unavailable Ryan Crump Referring Unavailable Care Physician, No Primary Primary Care Unava ilable Cruz Duarte Attending Unavailable Cruz Duarte Referring Unavailable Care Physician, No Primary Primary Care Unava ilable Brandt Valeriy Attending Unavailable Care Physician, No Primary Primary Care Unava ilable Sung Maloney Attending Unavailable Care Physician, No Primary Primary Care Unava ilable Provider, Ed Physician Attending Unavail le Care Physician, No Primary Primary Care Unava ilable Allergies Allergy Classification Reported Allergen(s) Allergy Type Date of Onset Reaction(s) Facility (3 sources) Penicillins; Translations: [PENICILLINS] Drug allergy (disorder) 08-19-2015 [facility] Repository (8 sources) Amoxicillin Drug Allergy 04-19-2022 [facility] (7 sources) Penicillins Allergy to substance 02-19-2023 [facility] (3 sources) Penicillins Drug Allergy 08-19-2015 [facility] (1 source) Amoxicillin Drug Allergy 04-21-2025 [facility] Repository (1 source) Penicillins Drug allergy (disorder) 04-21-2025 [facility] Repository Medications Current Medications Medication Drug Class(es) Dates Sig (Normalized) Sig (Original) acetaminophen 325 mg / HYDROcodone bitartrate 5 mg oral tablet (3 sources) Opioid Agonist Start: 04-21-2025 take 1 tablet by mouth every four hours as needed for pain Hydrocodone-Acetam inophen 5-325 mg tablet Active 1 {tbl} PO EVERY 4 HOURS NEEDED as needed for Pain 10 2 0 April 21, 2025 Gouty arthritis of right ankle Gout, unspecified Start: 04-19-2022 take 1 tablet by tianna th every six hours Hydrocodone-Acetaminophen Active 1 TABLE T PO EVERY 6 HOURS 10 3 April 19, 2022 [id number] actuat albuterol 0.09 mg/actuat metered dose inhaler (11 sources) beta2-Adrenergic Agonist Start: 03-30-2025 Albut ulysses Sulfate (Ventolin Hfa) 90 mcg/actuation HFA aerosol inhaler Active 2 NMA INHALATION EVERY 4 HOURS NEEDED as needed for Wheezing 1 0 March 30, 2025 12:00am dispense with spacer Start: 09-02-2022 End: 10-12-2023 Albuterol Sulfate (Ventolin Hfa) 1 INHALER inhaler Discontinued 1 - 2 NMA INHALATION EVERY 4 HOURS NEEDED as needed for Wheezing 1 0 September 02, 2022 1:00am October 12, 2023 8:28pm Start: 09-02-2022 End: 10-12-2023 take 1 puff(s) by inhalation every four hours as needed Albuterol Sulfate (Ventolin Hfa) 1 INHALER inhaler Discontinued 1 - 2 PUFF INHALATION EVERY 4 HOURS NEEDED September 02, 2022 12:00am October 12, 2023 7:28pm amLODIPine 10 mg oral tablet (1 source) Dihydropyridine Calcium Channel Lacy Start: 04-21-2025 take 1 tablet by mouth once daily Amlodipine 10 mg tablet Active 10 mg PO DAILY 30 0 April 21, 2025 12:00am amphetamine aspartate 7.5 mg / amphetamine sulfate 7.5 mg / dextroamphetamine saccharate 7.5 mg / dextroamphetamine sulfate 7.5 mg oral tablet (3 sources) Central Nervous System Stimulant take 1 tablet by mouth once daily Amphetamine-Dex troamphetamine (ADDERALL) 30 mg tablet Take 30 mg by mouth once daily. 0 Active Comment on above: Take 30 mg by mouth once daily. predniSONE 10 mg oral tablet (15 sources) Start: 04-21-2025 take 4 tablets by mouth once daily, then take 3 tablets by mouth once daily, then take 2 tablets by mouth once daily, then take 1 tablet by mouth once daily Prednisone 10 mg tablet Active 10 mg PO DIRECTED 30 April 21, 2025 12:00am Take 4 tablets daily for 3 days, then 3 daily for 3 days, then 2 daily for 3 days, then 1 a day for 3 days Start: 12-22-2024 End: 04-21-2025 take 2 tablets by mouth once daily Prednisone 20 mg tablet Discontinued 40 mg PO DAILY 14 7 0 December 22, 2024 1:00am April 21, 2025 7:54am Start: 03-10-2024 predniSONE (DE LTASONE) 10 mg tablet Take 4 tabs daily for 3 days, then 2 tabs daily for 3 days, then 1 tab daily for 3 days with food. 21 tablet 0 03/10/2024 Active Start: 10-12-2023 End: 04-21-2025 take 3 tablets by mouth once daily Prednisone 20 mg tablet Discontinued 60 mg PO DAILY 15 0 March 30, 2025 12:00am April 21, 2025 7:54am Start: 10-12-2023 take 60 mg by mouth once daily Prednisone Active 60 MG PO DAILY October 12, 2023 12:00am Start: 02-19-2023 take 50 mg by mouth once daily Prednisone Active 50 MG PO DAILY February 19, 2023 12:00am Start: 04-19-2022 take 60 mg by mouth once daily Prednisone Active 60 MG PO DAILY April 19, 2022 12:00am Completed/Discontinued Medications Medication Drug Class(es) Dates Sig (Normalized) Sig (Original) dicyclomine hydrochloride 20 mg oral tablet (3 sources) Anticholinergic Start: 12-06-2024 End: 04-21-2025 take 1 tablet by mouth three times daily Dicyclomine 20 mg tablet Discontinued 20 mg PO THREE TIMES A DAY December 06, 2024 1:00am April 21, 2025 7:53am doxycycline hyclate 100 mg oral capsule (2 sources) Tetracycline-class Drug Start: 04-16-2025 End: 04-21-2025 take 1 capsule by mouth twice daily Doxycycline Hyclate 100 mg capsule Discontinued 100 mg PO TWICE A DAY 10 April 16, 2025 12:00am April 21, 2025 7:53am ondansetron 4 mg disintegrating oral tablet (6 sources) Serotonin-3 Receptor Antagonist Start: 12-06-2024 End: 04-21-2025 take 1 tablet by mouth every six hours as needed for nausea and vomiting Ondansetron 4 mg tablet,disintegra ting Discontinued 4 mg PO EVERY 6 HOURS as needed for nausea and vomiting December 06, 2024 1:00am April 21, 2025 7:53am Start: 08-19-2015 take 1 tablet by tianna th every four hours as needed ondansetron orally disintegrating (ZOFRAN ODT) 4 mg disintegrating tablet Take 1 tablet by mouth every 4 hours as needed for Nausea/Vomiting. 8 tablet 0 08/19/2015 Active Comment on above: Take 1 tablet by tianna th every 4 hours as needed for Nausea/Vomiting. Problems Active Problems Problem Classification Problem Date Documented Da te Episodic/Chronic Allergic reactions (1 source) Allergy status to penicillin; Translations: [ALLERGY STATUS TO PENICILLIN] Onset: 07-31-2021 Episodic Appendicitis and other appendiceal conditions (8 sources) Appendicitis; Translations: [Unspecified appendicitis] 12-03-2015 Episodic Asthma (8 sources) Exacerbation of asthma; Translations: [Unspecified asthma with (acute) exacerbation] 10-31-2021 Chronic Chronic kidney disease (9 sources) Chronic renal failure; Translations: [Chronic renal failure, stage 3 (moderate)] 04-19-2022 Chronic Diseases of white blood cells (8 sources) Leukocytosis; Translations: [Elevated white blood cell count, unspecified] 12-03-2015 Chronic Essential hypertension (2 sources) Hypertensive disorder; Translations: [Essential (primary) hypertension] 10-20-2023 Chronic Gastrointestinal hemorrhage (9 sources) Rectal hemorrhage; Translations: [Hemorrhage of anus and rectum] 12-12-2021 Episodic Gout and other crystal arthropathies (14 sources) Gout, unspecified; Translations: [Gouty arthritis of right foot] Onset: 07-31-2021 04-27-2022 Chronic Immunizations and screening for infectious disease (8 sources) Suspected disease caused by 2019-nCoV; Translations: [Suspected COVID-19 virus infection] 10-31-2021 Episodic Nonspecific chest pain (15 sources) Chest pain; Translations: [Chest pain, unspecified] 12-19-2021 Episodic Other aftercare (1 source) 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 systemic steroids; Translations: [JAIL USE OF SYSTEMIC STEROIDS] Onset: 07-31-2021 Episodic Other circulatory disease (8 sources) Elevated blood pressure; Translations: [Elevated blood-pressure reading, without diagnosis of hypertension] 04-27-2022 Episodic Other circulatory disease (4 sources) Elevated blood-pressure reading without diagnosis of hypertension; Translations: [Elevated blood-pressure reading, without diagnosis of hypertension] 10-12-2023 Episodic Other connective tissue disease (1 source) Pain in right toe(s); Translations: [PAIN IN RIGHT TOES] Onset: 06-04-2021 Episodic Other connective tissue disease (8 sources) Foot pain; Translations: [Pain in left foot] 05-25-2023 Episodic Other injuries and conditions due to external causes (1 source) Unspecified injury of right foot, initial encounter; Translations: [UNSPECIFIED INJURY RT FOOT INITIAL] Onset: 07-31-2021 Episodic Other lower respiratory disease (8 sources) Wheezing; Translations: [Wheezing] 09-02-2022 Episodic Other lower respiratory disease (8 sources) Chronic cough; Translations: [Chronic cough] 12-19-2021 Episodic Other lower respiratory disease (10 sources) Dyspnea; Translations: [Dyspnea, unspecified] 09-10-2022 Episodic Other lower respiratory disease (1 source) Shortness of breath; Translations: [Shortness of breath] Onset: 04-03-2025 Episodic Other non-traumatic joint disorders (1 source) Pain in right ankle and joints of right foot; Translations: [Pain in right ankle and joints of right foot] Onset: 04-25-2025 Episodic Other skin disorders (2 sources) Folliculitis; Translations: [Follicular disorder, unspecified] 04-16-2025 Episodic Other skin disorders (1 source) Rash and other nonspecific skin eruption; Translations: [Rash and other nonspecific skin eruption] Onset: 04-20-2025 Episodic Other upper respiratory disease (7 sources) Acute bronchospasm; Translations: [Acute bronchospasm] 10-12-2023 Episodic Other upper respiratory infections (12 sources) Viral upper respiratory tract infection; Translations: [Acute upper respiratory infection, unspecified] 11-08-2021 Episodic Pneumonia (except that caused by tuberculosis or sexually transmitted disease) (8 sources) Community acquired pneumonia; Translations: [Pneumonia, unspecified organism] 12-03-2015 Episodic Residual codes; unclassified (8 sources) Tobacco user; Translations: [Tobacco use] 12-19-2021 Episodic Residual codes; unclassified (7 sources) Acquired absence of other specified parts of digestive tract; Translations: [Status post laparoscopic appendectomy] 12-03-2015 Episodic Residual codes; unclassified (4 sources) Tobacco use and exposure - finding; Translations: [Tobacco use] 10-12-2023 Episodic Unclassified (3 sources) or pulmonology Unclassified (3 sources) for primary care Viral infection (1 source) Disease caused by 2019-nCoV; Translations: [COVID-19] 10-20-2023 Episodic Past or Other Problems Problem Classification Problem Date Documented Da te Episodic/Chronic Nausea and vomiting (4 sources) Nausea and vomiting; Translations: [Nausea with vomiting, unspecified] Onset: 12-21-2024 12-14-2024 Episodic Other connective tissue disease (1 source) Pain in left foot; Translations: [Pain in left foot] Onset: 01-05-2025 Episodic Results Test Name Value Interpretation Reference Range Facility Absolute lymphocyte countOrd ered By: Sung Maloney on 04-21-2025 Lymphocytes Auto (Unsp spec) [#/Vol] 1.30 10*3/uL 0.83-4.51 [facility] Absolute neutrophil countOrd ered By: Sung Maloney on 04-21-2025 Neutrophils (Bld) [#/Vol] 16.2 10*3/uL High 2.0-7.7 [facility] Anion gap in Serum or Plasma Ordered By: Sung Maloney on 04-21-2025 Anion gap [Moles/Vol] 12 mmol/L 03-09 [facility] Ankle min 3 Viewson 04-21-20 Ankle min 3 Views [facility] Imaging Services [address] [place], [place] [address] Ankle min 3 Views MR#: [id number] Acct: [id number] Name: CHANDANA RAYMUNDO Rep #: [id number] : 1995 M 29 From: Fawad dixon MD PCP: Care Physician,No Primary Status: REG ER Study: Ankle min 3 Views Date of Exam: 04/21/25 Exam# [id number] Ordering Dr: Sung Maloney MD PROCEDURE: ANKLE MIN 3 VIEWS 04/21/2025 REASON FOR EXAM: PAIN TECHNIQUE: ANKLE MIN 3 VIEWS COMPARISON: None FINDINGS: Bones: No fracture seen. Joints: Normal alignment. Mortise appears intact. No effusion. Soft tissues: Soft tissues are unremarkable. Other: RAD/Ankle min 3 Views IMPRESSION: NEGATIVE ANKLE SERIES Reading Location: [id number] CC: Dr. Sung Maloney MD; No Primary Care Physician Vegetable Thinner: Signed Normal [facility] Automated lymphocyte count a s percentage of total leukocytesOrdered By: Sung Maloney on 04-21-2025 Lymphocytes/100 WBC Auto (Unsp spec) 7.0 % Low 19-41 [facility] BUN/creatinine ratioOrdered By: Sung Maloney on 04-21-2025 Urea nitrogen/Creatinine [Mass ratio] 8.4 mg/mg Low 10-20 [facility] Basic Metabolic Profile (BMP )on 04-21-2025 BUN/CRE 8.4 RATIO Low 10-20 [facility] Comment on above: Performed By: #### L 501.1400, L501.6710, L100.0100, L500.2500, L101.9900 #### [facility] [address] [place], [address] Calcium [Mass/Vol] 9.1 mg/dL Normal 7.6-11.0 [facility] Comment on above: Performed By: #### L 501.1400, L501.6710, L100.0100, L500.2500, L101.9900 #### [facility] [address] [place], [address] Chloride [Moles/Vol] 105 mmol/L Normal 98-108 [facility] Comment on above: Performed By: #### L 501.1400, L501.6710, L100.0100, L500.2500, L101.9900 #### [facility] [address] [place], [address] CO2 [Moles/Vol] 21.1 mmol/L Normal 21.0-32.0 [facility] Comment on above: Performed By: #### L 501.1400, L501.6710, L100.0100, L500.2500, L101.9900 #### [facility] [address] [place], [address] Creatinine [Mass/Vol] 2.10 mg/dL High 0.70-1.20 [facility] Comment on above: Performed By: #### L 501.1400, L501.6710, L100.0100, L500.2500, L101.9900 #### [facility] [address] [place], [address] ECRCL 72.09 ml/min Normal 50-250 [facility] Comment on above: Performed By: #### L 501.1400, L501.6710, L100.0100, L500.2500, L101.9900 #### [facility] [address] [place], [address] GAP 12 Normal 5-15 [facility] Comment on above: Performed By: #### L 501.1400, L501.6710, L100.0100, L500.2500, L101.9900 #### [facility] [address] [place], [address] GFR/1.73 sq M.predicted among non-blacks MDRD (S/P/Bld) [Vol rate/Area] 43 mL/min/{1.73_m2} Low >60 [facility] Comment on above: Result Comment: mL/m in/1.73m2 CKD-EPI Creatinine Equation (2020) Performed By: #### L 501.1400, L501.6710, L100.0100, L500.2500, L101.9900 #### [facility] [address] [place], [address] Glucose [Mass/Vol] 104 mg/dL High 70-99 [facility] Comment on above: Performed By: #### L 501.1400, L501.6710, L100.0100, L500.2500, L101.9900 #### [facility] [address] [place], [address] Potassium [Moles/Vol] 4.1 mmol/L Normal 3.3-5.1 [facility] Comment on above: Result Comment: Hemo lysis present, Results??could be affected. ?? Performed By: #### L 501.1400, L501.6710, L100.0100, L500.2500, L101.9900 #### [facility] [address] [place], [address] Sodium [Moles/Vol] 137 mmol/L Normal 133-145 [facility] Comment on above: Performed By: #### L 501.1400, L501.6710, L100.0100, L500.2500, L101.9900 #### [facility] [address] [place], [address] Urea nitrogen [Mass/Vol] 18 mg/dL Normal 4-19 [facility] Comment on above: Performed By: #### L 501.1400, L501.6710, L100.0100, L500.2500, L101.9900 #### [facility] [address] [place], [address] Basophil percentageOrdered B y: Sung Maloney on 04-21-2025 Basophils/100 WBC (Bld) 0.2 % 0-1 [facility] CBC W/Diff, Automatedon 03-27 Absolute Lymph 1.30 X10 3/uL Normal 0.83-4.51 [facility] Comment on above: Performed By: #### L 501.1400, L501.6710, L100.0100, L500.2500, L101.9900 #### [facility] [address] [place], [address] Absolute Neut 16.2 X10 3/uL High 2.0-7.7 [facility] Comment on above: Performed By: #### L 501.1400, L501.6710, L100.0100, L500.2500, L101.9900 #### [facility] [address] [place], [address] Basophils/100 WBC (Bld) 0.2 % Normal 0-1 [facility] Comment on above: Performed By: #### L 501.1400, L501.6710, L100.0100, L500.2500, L101.9900 #### [facility] [address] [place], [address] Eosinophils/100 WBC (Bld) 0.2 % Normal 0-5 [facility] Comment on above: Performed By: #### L 501.1400, L501.6710, L100.0100, L500.2500, L101.9900 #### [facility] [address] [place], [address] Erythrocyte distribution width (RBC) [Ratio] 12.0 % Normal 11.6-14.6 [facility] Comment on above: Performed By: #### L 501.1400, L501.6710, L100.0100, L500.2500, L101.9900 #### [facility] [address] [place], [address] Hematocrit (Bld) [Volume fraction] 46.1 % Normal 40-54 [facility] Comment on above: Performed By: #### L 501.1400, L501.6710, L100.0100, L500.2500, L101.9900 #### [facility] [address] [place], [address] Hemoglobin (Bld) [Mass/Vol] 16.3 g/dL Normal 13.0-16.5 [facility] Comment on above: Performed By: #### L 501.1400, L501.6710, L100.0100, L500.2500, L101.9900 #### [facility] [address] [place], [address] IG% 0.300 Normal 0.0-0.9 [facility] Comment on above: Result Comment: IG% - Immature Granulocytes (promyelocytes, myelocytes and metamyelocytes) > 1% indicates that a LEFT SHIFT is Present. Performed By: #### L 501.1400, L501.6710, L100.0100, L500.2500, L101.9900 #### [facility] [address] [place], [address] Lymphocytes/100 WBC (Bld) 7.0 % Low 19-41 [facility] Comment on above: Performed By: #### L 501.1400, L501.6710, L100.0100, L500.2500, L101.9900 #### [facility] [address] [place], [address] MCH (RBC) [Entitic mass] 32.7 pg High 27.0-32.0 [facility] Comment on above: Performed By: #### L 501.1400, L501.6710, L100.0100, L500.2500, L101.9900 #### [facility] [address] [place], [address] MCHC (RBC) [Mass/Vol] 35.4 g/dL Normal 32-36 [facility] Comment on above: Performed By: #### L 501.1400, L501.6710, L100.0100, L500.2500, L101.9900 #### [facility] [address] [place], [address] MCV (RBC) [Entitic vol] 92.6 fL Normal 80-94 [facility] Comment on above: Performed By: #### L 501.1400, L501.6710, L100.0100, L500.2500, L101.9900 #### [facility] [address] [place], [address] Monocytes/100 WBC (Bld) 5.0 % Normal 0-10 [facility] Comment on above: Performed By: #### L 501.1400, L501.6710, L100.0100, L500.2500, L101.9900 #### [facility] [address] [place], [address] Neutrophils/100 WBC (Bld) 87.3 % High 47-70 [facility] Comment on above: Performed By: #### L 501.1400, L501.6710, L100.0100, L500.2500, L101.9900 #### [facility] [address] [place], [address] Nucleated RBC (Bld) [#/Vol] 0 10*3/uL Normal 0-5 [facility] Comment on above: Performed By: #### L 501.1400, L501.6710, L100.0100, L500.2500, L101.9900 #### [facility] [address] [place], [address] Platelet mean volume (Bld) [Entitic vol] 10.0 fL Normal 6.2-12.0 [facility] Comment on above: Performed By: #### L 501.1400, L501.6710, L100.0100, L500.2500, L101.9900 #### [facility] [address] [place], [address] Platelets (Bld) [#/Vol] 237 10*3/uL Normal 150-450 [facility] Comment on above: Performed By: #### L 501.1400, L501.6710, L100.0100, L500.2500, L101.9900 #### [facility] [address] [place], [address] RBC (Bld) [#/Vol] 4.98 10*6/uL Normal 4.6-6.2 [facility] Comment on above: Performed By: #### L 501.1400, L501.6710, L100.0100, L500.2500, L101.9900 #### [facility] [address] [place], [address] RDW SD 41.1 fl Normal 35.1-43.9 [facility] Comment on above: Performed By: #### L 501.1400, L501.6710, L100.0100, L500.2500, L101.9900 #### [facility] [address] [place], [address] WBC (Bld) [#/Vol] 18.5 10*3/uL High 4.4-11.0 [facility] Comment on above: Performed By: #### L 501.1400, L501.6710, L100.0100, L500.2500, L101.9900 #### [facility] [address] [place], [address] CRPon 04-21-2025 C-REACTIVE PROT 4.76 mg/L High 0.0-3.0 [facility] Comment on above: Performed By: #### L 501.1400, L501.6710, L100.0100, L500.2500, L101.9900 ####[facility] [address] [place], [address] Carbon dioxide, total [Moles /volume] in Central venous bloodOrdered By: Sung Maloney on 04-21-2025 CO2 [Moles/Vol] 21.1 mmol/L 21.0-32.0 [facility] Chloride assayOrdered By: Angy Maloney on 04-21-2025 Chloride [Moles/Vol] 105 mmol/L 98-108 [facility] Emergency Department Summary on 04-21-2025 Emergency Department Summary [facility] Medical Records Department [address] [place] [address] Emergency Department Summary 04/21/25 MR#: [id number] Acct: [id number] Name: CHANDANA RAYMUNDO Rep #: [id number] : 1995 29 From: Sung Maloney MD PCP: Care Physician,No Primary Status:REG ER Location: ED HPI History of Present Illness Chief Complaint: Lower Extremity Injury Informant: patient and EMS Narrative Narrative: 29-year-old male presenting with severe right lower extremity pain that he woke up with 3 hours ago. No injury. No fevers or chills. He went to bed and it felt okay. Seems to be centered at his right ankle, but pain radiating up toward the knee. Cannot move the ankle due to pain hence calling EMS. States he has a history of gout that has had in his toes before. He denies any fevers or chills or recent illness or systemic symptoms. No history of DVT or PE. [facility] Medical History (Updated 04/21/25 @ 11:[address] Sung Maloney MD) Gout History of substance abuse Asthma Kidney disease Liver abscess Asthma attack Home Medications ???Medication ???Instructions ???Recorded ???Last Taken ???Type albuterol sulfate 90 mcg/actuation 2 puff inhalation Q4H PRN PRN Unknown Rx aerosol inhaler (Ventolin HFA) Wheezing ##1 amlodipine 10 mg tablet 10 mg PO DAILY #30 tabs 04/21/25 U nknown Rx hydrocodone-acetami nophen 5-325mg 1 tab PO Q4H PRN PRN Pain 2 days 04/21/25 Unknown Rx 5mg-325mg #10 TABLETS prednisone 10 mg tablet 10 mg PO UD #30 tabs 04/21/25 Unkn own Rx Allergy/AdvReac Type Severity Reaction Status Date / Time amoxicillin Allergy Hives Verified 04/21/25 07:49 Penicillins Allergy Hives Verified 04/21/25 07:49 Surgical History Hx of appendectomy Social History household members: spouse, children and none housing: homeless current occupational status: employed and unemployed Smoking Status: Current every day smoker tobacco type: cigarettes ROS ROS ED Constitutional Constitutional ED: Denies chills or fever(s) Eyes Eyes: Denies change in vision or diplopia ENT ENT ED: Denies rhinorrhea or sore throat Cardiovascular Cardiovascular: Denies chest pain or palpitations Respiratory/Chest Respiratory/Chest: Denies cough or dyspnea Gastrointestinal Gastrointestinal: Denies abdominal pain, diarrhea, nausea or vomiting Genitourinary Genitourinary ED: Denies dysuria or hematuria Musculoskeletal Musculoskeletal: Reports extremity pain; Denies neck pain Integumentary Denies Abrasions, rash or wounds Neurologic Neurologic: Denies paresthesias or weakness Psychiatric Psychiatric: Reports anxiety; Denies suicidal thoughts EXAM Physical Exam Const Vital Signs: 04/21/25 07:49 04/21/25 10:44 04/21/25 10:44 Temperature 98.5 F 97.9 F Temperature Source Oral Pulse Rate 80 79 Respiratory Rate 16 16 Blood Pressure 211/100 H 186/109 H 186/109 H Blood Pressure Mean 137 134 134 Pulse Ox 100 97 Oxygen Delivery Method Room Air Positive well nourished and well developed Constitutional Narrative: In painful distress. General Appearance ED: well developed HEENT Reports moist mucous membranes normocephalic and atraumatic Eyes PERRL and EOMs intact bilaterally Neck full ROM and supple Resp normal respiratory effort and clear to auscultation bilaterally Cardio regular rate, regular rhythm and no murmurs GI non-tender and non-distended Auscultation: normoactive bowel sounds Palpation: soft Back/Spine normal ROM and normal to inspection General Back: other FROM Extremity Extremity Narrative: Refuses to move right ankle due to pain. Severe pain with attempting to passively range it. The ankle is mildly swollen, and just barely touching it reproduces severe pain. Less tender in the calf but the entire posterior aspect of the lower leg is tender, excluding the popliteal fossa. All compartments of the lower leg and thigh are soft and nondistended. There is no pedal edema above the ankle. The ankle is warm compared with the contralateral ankle. There is no erythema. Strong DP pulse 2+ bilaterally. Brisk cap refill bilaterally. No rash or lesions. Achilles intact by palpation. Foot and calcaneus nontender. Good range at the knee without pain there and no tenderness in the thigh. No palpable cords. Neuro oriented x3, no focal motor deficits and no sensory deficits noted Sensorium / Orientation: alert Motor Exam: strength 5/5 throughout Psych thought process normal Mood Affect: anxious Skin no wounds Rashes: no rashes MDM MDM MDM Narrative Medical decision making narrative: I suspect this is gout. Spontaneous onset pain in the extremity it i (more content not included)... Normal [facility] Eosinophil percentageOrdered By: Sung Maloney on 04-21-2025 Eosinophils/100 WBC (Bld) 0.2 % 0-5 [facility] Erythrocyte Sed Rateon 04-21 SED RATE 5 mm/hr Normal 0-20 [facility] Comment on above: Performed By: #### L 501.1400, L501.6710, L100.0100, L500.2500, L101.9900 #### [facility] [address] [place], [address] Erythrocyte distribution wid th ratioOrdered By: Sung Maloney on 04-21-2025 Erythrocyte distribution width (RBC) [Ratio] 12.0 % 11.6-14.6 [facility] Erythrocyte distribution wid th standard deviationOrdered By: Sung Maloney on 04-21-2025 Erythrocyte distribution width (RBC) [Ratio] 41.1 fl 35.1-43.9 [facility] Erythrocyte sedimentation ra teOrdered By: Sung Maloney on 04-21-2025 ESR (Bld) [Velocity] 5 mm/h 0-20 [facility] Glomerular filtration rate ( GFR) estimation/1.73 sq m using serum, plasma, or whole bOrdered By: Sung Maloney on 04-21-2025 GFR/1.73 sq M.predicted among non-blacks MDRD (S/P/Bld) [Vol rate/Area] 43 mL/min/{1.73_m2} Low >60 [facility] Comment on above: mL/min/1.73m2 CKD-EP I Creatinine Equation (2020) Hematocrit Auto (Bld) [Volum e fraction]Ordered By: Sung Maloney on 04-21-2025 Hematocrit (Bld) [Volume fraction] 46.1 % 40-54 [facility] Hemoglobin measurementOrdere d By: Sung Maloney on 04-21-2025 Hemoglobin (Bld) [Mass/Vol] 16.3 g/dL 13.0-16.5 [facility] Immature granulocytes/100 WB C Auto (Bld)Ordered By: Sung Maloney 04-21-2025 Immature granulocytes/100 WBC (Bld) 0.300 % 0.0-0.9 [facility] Comment on above: IG% - Immature Granu locytes (promyelocytes, myelocytes and metamyelocytes) > 1% indicates that a LEFT SHIFT is Present. MCV (mean corpuscular volume ) determinationOrdered By: Sung Maloney on 04-21-2025 MCV (RBC) [Entitic vol] 92.6 fL 80-94 [facility] Mean corpuscular hemoglobin (MCH) determinationOrdered By: uSng Maloney 04-21-2025 MCH (RBC) [Entitic mass] 32.7 pg High 27.0-32.0 [facility] Mean corpuscular hemoglobin concentration (MCHC) determinationOrdered By: Sung Maloney on 04-21-2025 MCHC (RBC) [Mass/Vol] 35.4 g/dL 32-36 [facility] Mean platelet volume determi nationOrdered By: Sung Maloney on 04-21-2025 Platelet mean volume (Bld) [Entitic vol] 10.0 fL 6.2-12.0 [facility] Monocyte percentageOrdered B y: Sung Maloney on 04-21-2025 Monocytes/100 WBC (Bld) 5.0 % 0-10 [facility] Neutrophil percentageOrdered By: Sung Maloney on 04-21-2025 Neutrophils/100 WBC (Bld) 87.3 % High 47-70 [facility] Nucleated red blood cell per centageOrdered By: Sung Maloney on 04-21-2025 Nucleated RBC/100 WBC (Bld) [Ratio] 0 % 0-5 [facility] Platelet countOrdered By: Angy Maloney on 04-21-2025 Platelets (Bld) [#/Vol] 237 10*3/uL 150-450 [facility] Potassium measurement (mass/ volume)Ordered By: Sung Maloney on 04-21-2025 Potassium (Unsp spec) [Mass/Vol] 4.1 mmol/L 3.3-5.1 [facility] Comment on above: Hemolysis present, R esults could be affected. RBC Auto (Bld) [#/Vol]Ordere d By: Sung Maloney on 04-21-2025 RBC (Bld) [#/Vol] 4.98 10*6/uL 4.6-6.2 [facility] Serum creatinine measurement (mass/volume)Ordered By: Sung Maloney on 04-21-2025 Creatinine [Mass/Vol] 2.10 mg/dL High 0.70-1.20 [facility] Serum glucose measurement (m ass/volume)Ordered By: Sung Maloney on 04-21-2025 Glucose [Mass/Vol] 104 mg/dL High 70-99 [facility] Serum or plasma C reactive p rotein measurement (mass/volume)Ordered By: Sung Maloney on 04-21-2025 CRP [Mass/Vol] 4.76 mg/L High 0.0-3.0 [facility] Serum or plasma calcium khanh urement (mass/volume)Ordered By: Sung Maloney on 04-21-2025 Calcium [Mass/Vol] 9.1 mg/dL 7.6-11.0 [facility] Serum or plasma urea nitroge n measurement (mass/volume)Ordered By: Sung Maloney on 04-21-2025 Urea nitrogen [Mass/Vol] 18 mg/dL 4-19 [facility] Serum or plasma uric acid me asurement (mass/volume)Ordered By: Sung Maloney on 04-21-2025 Urate [Mass/Vol] 10.8 mg/dL High 3.5-7.2 [facility] Comment on above: The drugs N-Acetylcy steine and Metamizole may falsely depress this assay. Sodium levelOrdered By: Asim Maloney on 04-21-2025 Sodium [Moles/Vol] 137 mmol/L 133-145 [facility] Uric Acidon 04-21-2025 URIC 10.8 mg/dL High 3.5-7.2 [facility] Comment on above: Result Comment: The drugs N-Acetylcysteine and Metamizole may falsely depress this assay. Performed By: #### L 501.1400, L501.6710, L100.0100, L500.2500, L101.9900 ####[facility] [id number] [place], [address] Venous Duplex US, Unilateral on 04-21-2025 Venous Duplex US, Unilateral [facility] [address] [place] [address] Venous Duplex US, Unilateral 04/21/25 0838 MR#: [id number] Acct: [id number] Name: CHANDANA RAYMUNDO Rep #: [id number] : 1995 29 From: Keith Nava MD Attending Dr: Status: DEP ER Ordering Dr: Sung Maloney MD Date: 04/21/25 Location: ED Sex: M C Admitted: Reason For Study Reason For Study: RLE PAin RIGHT GSV is normal. CFV is compressible, spontaneous, phasic, competent and demonstrates normal augmentation. FV is compressible, spontaneous, phasic, competent and demonstrates normal augmentation. POP V is compressible, spontaneous, phasic, competent and demonstrates normal augmentation. T/P Trunk is compressible. PTV is compressible. RT PerV is compressible. Procedure This is a venous duplex using B-mode, color flow and spectral Doppler. Exam performed portable in ED. The exam was diagnostic. A preliminary report was called and/or faxed to Dr. Maloney. VL/Venous Duplex US, Unilateral Interpretation Summary Deep veins of the right lower extremity are patent and compressible segmentally. There is no evidence of right lower extremity deep vein thrombosis. Valvular competence appears intact within the proximal deep venous system on the right . The right great saphenous vein appears patent and compressible segmentally. __ Ordering Physician: Sung Maloney Referring Physician: N/A Performed By: Shadi Jackson, T 04/21/251920 Date Keith Nava MD CC: Dr. Sung Maloney MD; No Primary Care Physician Date Dictated: 04/21/25837 Date Transcribed: 04/21/251920 Vegetable Thinner: Signed Normal [facility] White blood cell (WBC) count Ordered By: Sung Maloney on 04-21-2025 WBC (Bld) [#/Vol] 18.5 10*3/uL High 4.4-11.0 [facility] Emergency Department Summary on 04-16-[address] [facility] Medical Records Department [address] [place] [address] Emergency Department Summary 04/16/25 MR#: [id number] Acct: [id number] Name: CHANDANA RAYMUNDO Rep #: [id number] : 1995 29 From: Olesya FERNÁNDEZ PCP: Care Physician,No Primary Status:DEP ER Location: ED HPI History of Present Illness Chief Complaint: Rash Narrative Narrative: Patient presenting today with a pruritic rash to his back, chest, and arms he has had over the past 2 days. He denies any exposure to known allergens or new soaps/body products. He denies any fevers or chills. He reports that he is healthy otherwise. [facility] Medical History Kidney disease Liver abscess Asthma [...] PO DAILY #15 03/19 Unknown Rx TABLETS doxycycline hyclate 100 mg capsule 100 mg PO BID #10 caps 04/16/25 Unknown Rx Allergy/AdvReac Type Severity Reaction Status Date / Time amoxicillin Allergy Hives Verified 04/16/25 17:29 Penicillins Allergy Hives Verified 04/16/25 17:29 Surgical History Hx of appendectomy Social History household members: spouse, children and none housing: homeless current occupational status: employed and unemployed Smoking Status: Current every day smoker tobacco type: cigarettes ROS ROS ED Constitutional Constitutional ED: Denies chills or fever(s) Cardiovascular Cardiovascular: Denies chest pain Respiratory/Chest Respiratory/Chest: Denies dyspnea Gastrointestinal Gastrointestinal: Denies abdominal pain, nausea or vomiting Integumentary Reports rash Neurologic Neurologic: Denies paresthesias EXAM Physical Exam Const Vital Signs: 04/16/25 17:28 04/16/25 17:31 04/16/25 18:09 Temperature 97.9 F 98.2 F Temperature Source Oral Pulse Rate 75 82 Respiratory Rate 16 16 Blood Pressure 202/78 H 179/133 H 174/108 H Blood Pressure Mean 119 148 130 Pulse Ox 98 100 Oxygen Delivery Method Room Air Positive well nourished, well developed and no apparent distress General Appearance ED: well developed HEENT Reports normocephalic and head/scalp atraumatic Mouth ED: Yes moist mucous membranes normal Eyes PERRL and EOMs intact bilaterally Neck full ROM and supple Chest Wall inspection of chest normal Resp normal respiratory effort and clear to auscultation bilaterally Cardio regular rate and regular rhythm GI soft to palpation, non-tender, non-distended and no masses Back/Spine normal ROM and normal to inspection Extremity normal to inspection and full ROM Neuro oriented x3, CN's II-XII intact bilaterally, moves all extremities, no focal motor deficits and no sensory deficits noted Sensorium / Orientation: awake and alert Psych mental status grossly normal and thought process normal Skin Skin Narrative: Papular rash consistent with folliculitis to the arms, trunk, and back. No warmth, purulence, fluctuance. Physical Exam Const Vital Signs: 04/16/25 17:28 04/16/25 17:31 04/16/25 18:09 Temperature 97.9 F 98.2 F Temperature Source Oral Pulse Rate 75 82 Respiratory Rate 16 16 Blood Pressure 202/78 H 179/133 H 174/108 H Blood Pressure Mean 119 148 130 Pulse Ox 98 100 Oxygen Delivery Method Room Air MDM MDM MDM Narrative Medical decision making narrative: Patient presenting today due to a pruritic papular rash to his arms, chest, abdomen, and upper back he has had over the past 2 days. He is otherwise nontoxic-appearing and afebrile. He admits that he has been sweating a lot, it has been very hot outside. His exam is consistent with folliculitis. We will place him on a course of doxycycline given his penicillin allergy. Encouraged good hygiene with antibacterial soap. general ii farmworker did come and give him resources on a PCP referral and prescription assistance given he does not have insurance. Return instructions were discussed and patient discharged home in stable condition. MDM MDM Narrative Medica (more content not included)... Normal [facility] Chest 1 View (Portable)on Chest 1 View (Portable) [facility] Imaging Services [address] [place] [address] Chest 1 View (Portable) MR#: [id number] Acct: [id number] Name: RANDYGUERREROCHANDANA TORRES Rep #: [id number] : 1995 M 29 From: Tha Dial MD PCP: Care Physician,No Primary Status: REG ER Study: Chest 1 View (Portable) Date of Exam: 03/30/25 Exam# [id number] Ordering Dr: Cruz Duarte DO PROCEDURE: CHEST [...] 1. No active cardiopulmonary disease. Reading Location: [place] [address] CC: Dr. Cruz Duarte DO; No Primary Care Physician Vegetable Thinner: Signed Normal [facility] Emergency Department Summary on 03-30-2025 Emergency Department Summary [facility] Medical Records Department [address] [place] [address] Emergency Department Summary 03/30/25 MR#: [id number] Acct: [id number] Name: CHANDANA RAYMUNDO Rep #: [id number] : 1995 29 From: Cruz Duarte DO PCP: Care Physician,No Primary Status:DEP ER Location: ED HPI History of Present [...] of breath. No sputum production no fevers. PFSH PFSH Medical History Kidney disease Liver abscess Asthma [...] Endocrine Endocrinology: Denies polydipsia, polyphagia or polyuria Allergic/Immunologi c Allergic/Immunologi c ED: Denies mouth swelling, tongue swelling or [...] no wou (more content not included)... Normal [facility] Emergency Department Summary on 12-22-[address] [facility] Medical Records Department [address] [place] [address] Emergency Department Summary 12/22/24 MR#: [id number] Acct: [id number] Name: CHANDANA RAYMUNDO Rep #: [id number] : 1995 29 From: Ryan Crump MD [...] sheet on his foot when he sleeps. [facility] Medical History Kidney disease Liver abscess Asthma [...] can be discharged to follow-up with the [facility] clinic as he states he is currently homeless and does not have health insurance. Return instructions to the emergency department were reviewed. Disposition is discharged home in stable condition. History Record Review Discussion w/independent historian: Patient Additional record(s) reviewed:: Prior ED visit Radiography Diagnostic Testing: Clinical Impression(s) from Imaging Studies Foot X-Ray 12/22/24 13:30 IMPRESSION: Unremarkable examination. Reading Location: [id number] Discharge Plan Triage Chief Complaint: Lower Extremity [...] mg tablet, (more content not included)... Normal [facility] Foot min 3 Viewson Foot min 3 Views [facility] Imaging Services [address] [place] [address] Foot min 3 Views MR#: [id number] Acct: [id number] Name: CHANDANA RAYMUNDO Rep #: [id number] : 1995 M 29 From: Fawad dixon MD PCP: Care Physician,No Primary Status: PRE ER Study: Foot min 3 Views Date of Exam: 12/22/24 Exam# [id number] Ordering Dr: Provider,Ed P. PROCEDURE: FOOT MIN 3 VIEWS REASON FOR EXAM: Pain. History of gout. TECHNIQUE: Three views of the left foot were obtained. COMPARISON: Comparison is made with prior study dated May 25, 2023 FINDINGS: LEFT FOOT: No visible fracture. No suspicious bone lesion. Normal alignment. Soft tissues are unremarkable. RAD/Foot min 3 Views IMPRESSION: Unremarkable examination. Reading Location: [id number] CC: ED PHYSICIAN PROVIDER; No Primary Care Physician Vegetable Thinner: Signed Normal [facility] Emergency Department Summary on 12-06-2024 Emergency Department Summary [facility] Medical Records Department [address] [place] [address] Emergency Department Summary 12/06/24 MR#: [id number] Acct: [id number] Name: CHANDANA RAYMUNDO Rep #: [id number] : 1995 29 From: Chandana Huang DO PCP: Care Physician,No Primary Status:REG [...] last night they went to dinner to [employer] and felt that the chicken was undercooked but states that he ate a few bites of this before realizing and does not know if he has food poisoning. [facility] Medical History Kidney disease Liver abscess Asthma [...] follow commands knew that he was at [facility] year is 2024 Skin: Warm, dry, [...] Illness Other Complaint: Abd Pain ED Provider: Chandana Huang Dx/Rx/DC Orders Clinical Impression: Nausea vomiting Prescriptions: New ondansetron 4 mg tablet,disintegrati ng 4 mg PO Q6H PRN (Reason: nausea (more content not included)... Normal [facility] Influenza virus A and B and SARS-CoV-2 (COVID-19) and Respiratory syncytial virus RNAOrdered By: Chandana Huang on 12-06-2024 SARS-CoV-2 (COVID-19) RNA HUE+probe Ql (Unsp spec) [facility] M100.678on 12-06-2024 M100.678 Pending SARS-CoV-2 (COVID 19) Negative INFLUENZA A Negative INFLUENZA B Negative RSV PCR Negative Normal [facility] Comment on above: Performed By: #### M 100.678 #### [facility] [place], [address] ALCOHOLon 10-29-2024 Ethanol [Mass/Vol] mg/dL Normal [facility] Comment on above: Result Comment: Note : Alcohol values performed at [facility] are performed on serum or plasma and reported in mg/dl, which is different then the state reporting units of g/dl which is performed on whole blood. Result reporting units are based on test methodology and are not interchangable. Performed By: #### 1 81952, [id number], 359974, 993322 #### [facility] Services [address] [place], [place] [address] Community Outreach Specialist: Junior Little MD AUTO DIFFon 10-29-2024 Baso Count 0.10 x1000 Normal 0.00-0.20 [facility] Comment on above: Performed By: #### 1 32918, [id number], 876975, 357530 #### [facility] Services [address] [place], [place] [address] Community Outreach Specialist: Junior Little MD Basos % 1.2 % [facility] Comment on above: Performed By: #### 1 16789, [id number], 156945, 684369 #### [facility] Services [address] [place], [place] [address] Community Outreach Specialist: Junior Little MD Eos Count 0.20 x1000 Normal 0.00-0.50 [facility] Comment on above: Performed By: #### 1 42695, [id number], 084047, 236091 #### [facility] Services [address] [place] [address] Community Outreach Specialist: Junior Little MD Eosinophils/100 WBC (Bld) 1.5 % Normal [facility] Comment on above: Performed By: #### 1 78270, [id number], 266210, 587112 #### [facility] Services [address] [place] [address] Community Outreach Specialist: Junior Little MD Lymph Count 2.20 x1000 Normal 1.20-4.80 [facility] Comment on above: Performed By: #### 1 03972, [id number], 021597, 739236 #### [facility] [address] [place] [address] Community Outreach Specialist: Junior Little MD Lymphocytes/100 WBC (Bld) 18.8 % Normal [facility] Comment on above: Performed By: #### 1 67443, [id number], 689228, 440646 #### [facility] [address] [place] [address] Community Outreach Specialist: Junior Little MD Bannock Count 0.60 x1000 Normal 0.10-1.00 [facility] Comment on above: Performed By: #### 1 81112, [id number], 574379, 059734 #### [facility] [address] [place] [address] Community Outreach Specialist: Junior Little MD Monocytes/100 WBC (Bld) 4.7 % Normal [facility] Comment on above: Performed By: #### 1 29142, [id number], 795372, 510015 #### [facility] [address] [place] [address] Community Outreach Specialist: Junior Little MD Neutrophil Count (ANC) 8.80 x1000 Normal 1.40-8.80 So [facility] Comment on above: Performed By: #### 1 24463, [id number], 102864, 940069 #### [facility] [address] [place] [address] Community Outreach Specialist: Junior Little MD Neutrophils/100 WBC (Bld) 73.8 % Normal [facility] Comment on above: Performed By: #### 1 41968, [id number], 981493, 109890 #### [facility] [address] [place] [address] Community Outreach Specialist: MD Jack Andres 10-29-2024 GFR Estimated 40 Normal [facility] Comment on above: Result Comment: The GFR is calculated and is Age, Sex, and Race adjusted. Performed By: #### 1 79801, [id number], 915935, 080365 #### [facility] [address] [place] [address] Community Outreach Specialist: Junior Little MD Albumin [Mass/Vol] 3.0 g/dL Low 3.4-5.0 [facility] Comment on above: Performed By: #### 1 27654, [id number], 157044, 863716 #### [facility] [address] [place] [address] Community Outreach Specialist: Junior Little MD Albumin/Globulin [Mass ratio] 0.7 {ratio} Normal [facility] Comment on above: Performed By: #### 1 24133, [id number], 676964, 266728 #### [facility] Services [address] [place] [address] Community Outreach Specialist: Junior Little MD Alk Phos 137 unit/L High 45-117 [facility] Comment on above: Performed By: #### 1 42698, [id number], 606672, 282979 #### [facility] Services [address] [place] [address] Community Outreach Specialist: Junior Little MD Bilirubin [Mass/Vol] 0.30 mg/dL Normal 0.30-1.20 [facility] Comment on above: Result Comment: Use of this assay is not recommended for patients undergoing treatment with eltrombopag due to the potential for falsely elevated results. Performed By: #### 1 52160, [id number], 438908, 096863 #### [facility] Services [address] [place] [address] Community Outreach Specialist: Junior Little MD Calcium [Mass/Vol] 8.8 mg/dL Normal 8.5-10.5 [facility] Comment on above: Performed By: #### 1 07587, 1438137, 943220, 090930 #### [facility] Services [address] [place] [address] Community Outreach Specialist: Junior Little MD Chloride [Moles/Vol] 106 mmol/L Normal 100-109 [facility] Comment on above: Performed By: #### 1 65835, 0137727, 385890, 442729 #### [facility] [address] [place] [address] 85453 Community Outreach Specialist: Junior Little MD CO2 [Moles/Vol] 26.5 mmol/L Normal 21.0-32.0 [facility] Comment on above: Performed By: #### 1 81488, [id number], 588675, 397314 #### [facility] [address] [place] [address] 73462 Community Outreach Specialist: Junior Little MD Creatinine [Mass/Vol] 2.0 mg/dL High 0.7-1.3 [facility] Comment on above: Performed By: #### 1 86052, [id number], 873160, 810237 #### [facility] [address] [place] [address] 44936 Community Outreach Specialist: Junior Little MD Globulin (S) [Mass/Vol] 4.1 g/dL Normal S [facility] Comment on above: Performed By: #### 1 72671, [id number], 250915, 598805 #### [facility] [address] [place] [address] 54085 Community Outreach Specialist: Junior Little MD Glucose [Mass/Vol] 168 mg/dL High 72-100 [facility] Comment on above: Result Comment: Radha puncture should occur prior to sulfasalazine administration due to the potential for falsely depressed results. Venipuncture should occur prior to sulfapyridine administration due to the potential falsely elevated results. Baseline assay values before administration of sulfasalazine and sulfapyridine therapy would not be affected. Performed By: #### 1 05277, [id number], 908112, 341670 #### [facility] [address] [place] [address] 02199 Community Outreach Specialist: Junior Little MD GOT 15 unit/L Normal 15-37 [facility] Comment on above: Result Comment: Radha puncture should occur prior to sulfasalazine administration due to the potential for falsely depressed results. Baseline assay values before administration of sulfasalazine and sulfapyridine therapy would not be affected. Performed By: #### 1 59498, [id number], 705137, 772008 #### [facility] [address] [place] [address] 33775 Community Outreach Specialist: Junior Ltitle MD GPT 25 unit/L Normal 16-63 [facility] Comment on above: Result Comment: Radha puncture should occur prior to sulfasalazine administration due to the potential for falsely depressed results. Baseline assay values before administration of sulfasalazine and sulfapyridine therapy would not be affected. Performed By: #### 1 53849, [id number], 899952, 334286 #### [facility] [address] [place] [address] 57898 Community Outreach Specialist: Junior Little MD Osmolality [Osmolality] 293 mosm/kg Normal 275-295 [facility] Comment on above: Performed By: #### 1 93844, [id number], 904883, 953160 #### [facility] [address] [place], [place] [address] Community Outreach Specialist: Junior Little MD Potassium [Moles/Vol] 4.0 mmol/L Normal 3.5-5.1 [facility] Comment on above: Performed By: #### 1 57691, [id number], 152659, 713796 #### [facility] [address] [place] [address] 07993 Community Outreach Specialist: Junior Little MD Protein [Mass/Vol] 7.1 g/dL Normal 6.0-8.5 [facility] Comment on above: Performed By: #### 1 67729, [id number], 419100, 171620 #### [facility] [address] [place] [address] Community Outreach Specialist: Junior Little MD Sodium [Moles/Vol] 144 mmol/L Normal 135-145 [facility] Comment on above: Performed By: #### 1 93935, [id number], 088751, 325168 #### [facility] [address] [place] [address] 50617 Community Outreach Specialist: Junior Little MD Urea nitrogen [Mass/Vol] 19 mg/dL Normal 10-20 [facility] Comment on above: Performed By: #### 1 17559, 9076062, 290623, 924870 #### [facility] [address] [place] [address] 35475 Community Outreach Specialist: Junior Little MD Urea nitrogen/Creatinine [Mass ratio] 9.5 mg/mg Normal [facility] Comment on above: Performed By: #### 1 74428, [id number], 813102, 445074 #### [facility] [address] [place] [address] 99868 Community Outreach Specialist: Junior Little MD COVID-19 Molecular BREDon SARS-CoV-2 (COVID-19) RNA HUE+probe Ql (Unsp spec) Negative Normal Negative [facility] Comment on above: Result Comment: This assay [...] diagnosis. This testing was performed in the [facility] laboratory located at [place] [address]] Performed By: #### C [id number] #### [facility] [address] [place] [address] 63850 Community Outreach Specialist: Junior Little MD ED Data BIOLOGY MANAGER - Texton 025 ED Data BIOLOGY MANAGER - Text ED Data BIOLOGY MANAGER Entered On: 10/29/2024 17:13 EST Performed On: 10/29/2024 17:10 EST by Jeet Weinberg RN ED General Intake Information Greenwood Coma : Document Greenwood Coma Scale Problem History : Document Problem [...] Jeet Weinberg RN - 10/29/2024 17:10 EST Lakisha Coma Scale Eye Opening : Spontaneously Best Verbal Response : Oriented Best Motor Response : Obeys simple commands Greenwood Coma Score (Ref) : 15 Jeet Weinberg RN - 10/29/2024 17:10 EST Problem History (As Of: 10/29/2024 17:13:44 EST) Problems(Active) Knowledge deficit (SNOMED CT :2590511405 ) Name of Problem: Knowledge deficit ; Recorder: SYSTEM; Confirmation: Confirmed ; Classification: Nursing ; Code: 1345783791 ; Last Updated: 12/06/2013 18:01 EST ; [...] PNED ; Probability: 0 ; Diagnosis Code: [id number] Procedure History ED Urinary Catheter Present on [...] contact with a person who has a laboratory-confirme d COVID test within the last 48 hours. [...] History (As Of: 10/29/2024 17:13:44 EST) Normal [facility] ED Discharge Educationon ED Discharge Education Normal So [facility] ED Emergency Severity Index Adult-Texton 10-29-2024 ED Emergency Severity Index Adult-Text EDDIE - Adult Entered On: 10/29/2024 17:13 EST Performed On: 10/29/2024 17:10 EST by Jeet Weinberg RN EDDIE DCP GENERIC CODE Visit Reason : Mental health Tracking Triage Date/Time : 10/29/2024 17:13 EST Tracking Reg Status : Requested Tracking Acuity : 2-Emergent Tracking Group : Jeet Huerta RN - 10/29/2024 17:10 EST Normal [facility] ED Patient Summaryon 025 ED Patient Summary [facility] Emergency Department Discharge Instructions [address] [place] [address] (Patient Copy) Name: CHANDANA RAYMUNDO : 1995 Allergies: penicillins Diagnosis: Depression; Verbalizes suicidal thoughts Visit Date: 10/29/2024 17:03:12 [facility]#: [id number] Current Date Time: 10/29/2024 22:04:28 Address: [place] [address] Phone: [phone] Primary Care Provider: Name: NO FAMILY PHYSICIAN, 837 Phone: Emergency Department Care Providers: Primary Physician: MÓNICA SERRANO MD Thank you for choosing [facility] for your emergency care. You are very important to us. Our goal is to demonstrate our high quality medical care, and provide you with a very good patient experience. You may receive a survey about our service. Please take the time to complete the survey and return it so we can continue to enhance our service. Thank you again for allowing the [facility] Emergency Department to care for your medical needs. If you have questions about your care or follow up information please contact us at [phone]. Follow-Up Instructions CHANDANA RAYMUNDO has been given these follow-up instructions: Patient Education Materials CHANDANA RAYMUNDO has been given the following patient education materials: BEFORE YOU LEAVE Set up your [facility] Compar[employer] account! [employer] is a secure, online health management tool that connects you to portions of your hospital-based electronic medical record, allowing you to see test results, manage appointments, access discharge care instructions and much more. You can access [employer] from a computer, tablet or smartphone. Enrollment/registra tion is required. If you do not have a [employer] account, please provide us with an email address before you leave so that we may set up an account for you. New to ClickHome! You may now securely connect some of the health management apps you use (e.g., fitness trackers, dietary trackers, etc.) to your health record in [facility]. This new feature provides expanded access to your health and wellness data, which will help you and your care team make informed decisions about your health care. If you are interested in using a health management minh not currently connected to ClickHome, contact a Issuing Operator at [email or web address]. We will determine if the minh meets the technical requirements to connect to [facility] ClickHome and assure the security of your private health information. Medication Information CHANDANA RAYMUNDO has been given the following medication information: [...] health or substance abuse issue, please call [facility] at [phone] or the National Suicide Prevention Lifeline at . BREANNE Rubio TYLER, have received the follow-up provider(s) list, medication information and patient education materials/instructi ons and have verbalized understanding. Patient Signature Date Time Provider Signature Date Time Normal [facility] ED Physician Reporton 2024 ED Physician Report CHANDANA RAYMUNDO :1995 Registration Date:10/29/2024 Basic Information CC of [...] Decision Making Medically cleared for psychiatric admission. Reexamination/Reeva luation Patient will be admitted to [facility] for suicidal thoughts and feelings of depression. [...] Placement, 10/29/2024 19:55:00 EST, MÓNICA SERRANO MD, [facility], Admit as Inpatient CBCWD(CBC WITH DIFF), STAT, 10/29/2024 17:16:00 EST COMPMETA(CMP), STAT, 10/29/2024 17:16:00 EST COVID-19 Molecular BRED, STAT, 10/29/2024 17:16:00 EST, Specimen type: CHEF Swab EKG, 10/29/2024 17:16:00 EST, Other Reason, Cart, Heart Meds Unknown at this time, PRERNA, No EKG/Vian Requested Level of Care Order, 10/29/2024, Mental Health/Psych Admit as Inpatient, MÓNICA SERRANO MD, Reg - no need to update [place] [...] 17:17 0 Lymph % 10/29/24 17:17 18.8 Bannock % 10/29/24 17:17 4.7 Neutrophil % 10/29/24 17:17 73.8 Eosin % 10/29/24 17:17 1.5 Basos % 10/29/24 17:17 1.2 Lymph Count 10/29/24 17:17 2.20 Bannock Count 10/29/24 17:17 0.60 Neutrophil Count (ANC) 10/29/24 17:17 8.80 Eos Count 10/29/24 17:17 0.20 Baso Count 10/29/24 17:17 0.10 Immunology LATEST RESULTS COVID-19 Molecular BRED 10/29/24 17:17 Negative Urine Analysis LATEST RESULTS Color, U 10/29/24 17:17 Yellow Appearance, U 10/29/24 (more content not included)... Normal [facility] ED Progress Noteon ED Progress Note Pt. alert and oriented presents with suicidal ideations due to environmental factors. No attempts. States frequent pot use since the age of 14. Denies physical complaints. Spoke with Yahir at [facility] , due to patient having no insurance and being a resident in [facility]. AP on-call socially responsible investment adviser to call back. Pt. resting quietly and in no distress. Awaiting news from alternative paths. 1900 Assumed care of patient. A & O x3. Safety maintained. Patient provided water at this time, declines food or snack. 1920 Patient medicated per EMAR, denies questions or concerns. 200 Report given to Charo at [facility]. Patient going to . Received approval from [employer] [facility]. 2029 No changes in assessment. 2130 Patient resting in position of comfort with call light within reach. Safety maintained. Respirations even and unlabored, no acute distress. 6 Report given to physician ambulance. Normal [facility] ED Triage BIOLOGY MANAGER - Texton 10-29 ED Triage BIOLOGY MANAGER - Text ED Triage BIOLOGY MANAGER Entered On: 10/29/2024 17:15 EST Performed On: [...] 17:15:39 EST) Problems(Active) Knowledge deficit (SNOMED CT :2377698809 ) Name of Problem: Knowledge deficit ; Recorder: SYSTEM; Confirmation: Confirmed ; Classification: Nursing ; Code: [id number] ; Last Updated: 12/06/2013 18:01 EST ; [...] PNED ; Probability: 0 ; Diagnosis Code: [id number] Reason for Visit (As Of: 10/29/2024 17:15:40 EST) Problems(Active) Knowledge deficit (SNOMED CT :2461675004 ) Name of Problem: Knowledge deficit ; Recorder: SYSTEM; Confirmation: Confirmed ; Classification: Nursing ; Code: [id number] ; Last Updated: 12/06/2013 18:01 EST ; [...] PNED ; Probability: 0 ; Diagnosis Code: [id number] Sepsis Screening Sepsis Vitals Screening ED : None/ NA(Peds) Sultana BRIGGS, Jeet Jacobs - 10/29/2024 17:14 EST Normal [facility] HEMOon 10-29-2024 DIFF? No Normal [facility] Comment on above: Performed By: #### 1 90192, 7534502, 626461, 641536 #### [facility] [address] [place] [address] 44130 Community Outreach Specialist: Junior Little MD Erythrocyte distribution width (RBC) [Ratio] 13.2 % Normal 11.5-14.5 [facility] Comment on above: Performed By: #### 1 57723, 7818378, 637842, 448489 #### [facility] [address] [place] [address] 10625 Community Outreach Specialist: Junior Little MD Hematocrit (Bld) [Volume fraction] 50.2 % Normal 41.0-52.0 [facility] Comment on above: Performed By: #### 1 89118, 2040989, 066171, 462917 #### [facility] [address] [place] [address] 38342 Community Outreach Specialist: Junior Little MD Hemoglobin (Bld) [Mass/Vol] 17.2 g/dL Normal 13.5-17.5 [facility] Comment on above: Performed By: #### 1 07065, 1658246, 606041, 585771 #### [facility] [address] [place], [place] [address] Community Outreach Specialist: Junior Little MD Instr WBC 11.9 Normal [facility] Comment on above: Performed By: #### 1 94342, 8201545, 413620, 876412 #### [facility] [address] [place], [place] [address] Community Outreach Specialist: Junior Little MD MCH (RBC) [Entitic mass] 32.6 pg Normal 27.0-34.0 [facility] Comment on above: Performed By: #### 1 24740, 5771293, 746441, 502173 #### [facility] [address] [place] [address] 81653 Community Outreach Specialist: Junior Little MD MCHC (RBC) [Mass/Vol] 34.3 g/dL Normal 32.0-37.0 [facility] Comment on above: Performed By: #### 1 59293, 2888988, 458224, 674683 #### [facility] [address] [place] [address] 75678 Community Outreach Specialist: Junior Little MD MCV (RBC) [Entitic vol] 95.1 fL Normal 80.0-100.0 S [facility] Comment on above: Performed By: #### 1 99431, 1799812, 756429, 641000 #### [facility] [address] [place] [address] 88811 Community Outreach Specialist: Junior Little MD Nucleated RBC 0 /100WBC Normal [facility] Comment on above: Performed By: #### 1 86081, 8699971, 894021, 455623 #### [facility] [address] [place] [address] 87474 Community Outreach Specialist: Junior Little MD Platelet 272 x10 Normal 150-450 [facility] Comment on above: Performed By: #### 1 75324, 1409377, 738236, 706790 #### [facility] [address] [place] [address] 95622 Community Outreach Specialist: Junior Little MD Platelet mean volume (Bld) [Entitic vol] 8.1 fL Normal 7.4-10.4 [facility] Comment on above: Performed By: #### 1 19903, 5970611, 346904, 792235 #### [facility] [address] [place] [address] 48417 Community Outreach Specialist: Junior Little MD RBC 5.28 x10 Normal 4.70-6.10 [facility] Comment on above: Result Comment: Note : RBC morphology is normal unless otherwise stated. Evaluation performed only if differential is requested. Performed By: #### 1 49679, 1622390, 639134, 288966 #### [facility] [address] [place] [address] 49934 Community Outreach Specialist: uJnior Little MD WBC 11.9 x10 High 4.5-11.0 [facility] Comment on above: Performed By: #### 1 75109, 8514830, 201698, 253976 #### [facility] [address] [place] [address] 16256 Community Outreach Specialist: MD Atul Andres 10-29-2024 Amphetamines, U Negative Normal [facility] Comment on above: Performed By: #### 1 43346 #### [facility] [address] [place] [address] 15883 Community Outreach Specialist: Junior Little MD Barbituates, U Negative Normal [facility] Comment on above: Performed By: #### 1 41399 #### [facility] [address] [place] [address] 95896 Community Outreach Specialist: Junior Little MD Benzodiazepines, U Negative Normal [facility] Comment on above: Performed By: #### 1 39227 #### [facility] [address] [place] [address] 54195 Community Outreach Specialist: Junior Little MD Cocaine, U Negative Normal [facility] Comment on above: Performed By: #### 1 06143 #### [facility] [address] [place] [address] 27757 Community Outreach Specialist: Junior Little MD Ecstasy, U Negative Normal [facility] Comment on above: Performed By: #### 1 08476 #### [facility] [address] [place] [address] 43942 Community Outreach Specialist: Junior Little MD Opiates, U Negative Normal [facility] Comment on above: Performed By: #### 1 36564 #### [facility] [address] [place] [address] 31196 Community Outreach Specialist: Junior Little MD PCP, U Negative Normal [facility] Comment on above: Performed By: #### 1 23547 #### [facility] [address] [place] [address] 54352 Community Outreach Specialist: Junior Little MD THC, U Positive Normal [facility] Comment on above: Performed By: #### 1 59057 #### [facility] [address] [place] [address] 26169 Community Outreach Specialist: Junior Little MD UAon 10-29-2024 Appearance, U Clear Normal [facility] Comment on above: Performed By: #### 1 97394 #### [facility] [address] [place] [address] 80750 Community Outreach Specialist: Junior Little MD Bacteria, U Occasional Normal [facility] Comment on above: Performed By: #### 1 62507 #### [facility] [address] [place] [address] 39172 Community Outreach Specialist: Junior Little MD Bilirubin, U Negative Normal [facility] Comment on above: Result Comment: Bili wilkerson, U: Initial positive urine bilirubin results are not confirmed. Interfering substances may include elevated urobilinogen. Trace = 0.5-1.0 mg/dL Small = 2.0-4.0 mg/dL Moderate = 6.0-8.0 mg/dL Large = 10 mg/dl and greater Performed By: #### 1 83367 #### [facility] [address] [place] [address] 95988 Community Outreach Specialist: Junior Little MD Blood, U Small Abnormal Negative [facility] Comment on above: Result Comment: Bloo d, U: Trace = 0.03-0.05 mg/dL Small = 0.06-0.1 mg/dL Moderate = 0.2-0.5 mg/dL Large = 1.0 mg/dL and greater Performed By: #### 1 28803 #### [facility] [address] [place] [address] 28297 Community Outreach Specialist: Junior Little MD Color, U Yellow Normal [facility] Comment on above: Performed By: #### 1 50871 #### [facility] [address] [place] [address] 26342 Community Outreach Specialist: Junior Little MD Glucose Qual, U Negative Normal Negative [facility] Comment on above: Performed By: #### 1 55639 #### [facility] [address] [place] [address] 45526 Community Outreach Specialist: Juinor Little MD Ketones, U Negative Normal Negative [facility] Comment on above: Performed By: #### 1 85503 #### [facility] [address] [place] [address] 13320 Community Outreach Specialist: Junior Little MD Leukocyte Esterase, U Negative Normal Negative [facility] Comment on above: Result Comment: Leuk ocyte Esterase, U: Trace = 25 Ara/uL Small = 75 Ara/uL Moderate = 250 Ara/uL Large = 500 Ara/uL and greater Performed By: #### 1 30097 #### [facility] [address] [place] [address] 49003 Community Outreach Specialist: Junior Little MD Mucous, U Occasional Normal [facility] Comment on above: Performed By: #### 1 60869 #### [facility] [address] [place] [address] 64506 Community Outreach Specialist: Junior Little MD Nitrite, U Negative Normal Negative [facility] Comment on above: Performed By: #### 1 75111 #### [facility] [address] [place] [address] 80876 Community Outreach Specialist: Junior Little MD pH, U 6.0 Normal 4.5-8.0 [facility] Comment on above: Performed By: #### 1 67842 #### [facility] [address] [place] [address] 26046 Community Outreach Specialist: Junior Little MD Protein, U >=300 mg/dl Abnormal Negative [facility] Comment on above: Performed By: #### 1 21560 #### [facility] [address] [place] [address] 70666 Community Outreach Specialist: Junior Little MD RBC/HPF, U 4 #/HPF High 0-3 [facility] Comment on above: Performed By: #### 1 12970 #### [facility] [address] [place] [address] 54041 Community Outreach Specialist: Junior Little MD Specific Amo, U S>=1.030 Normal 1.001-1.035 [facility] Comment on above: Performed By: #### 1 98945 #### [facility] [address] [place] [address] Community Outreach Specialist: Junior Little MD U MICRO Indicated Normal [facility] Comment on above: Performed By: #### 1 30391 #### [facility] [address] [place] [address] [id number] Community Outreach Specialist: Junior Little MD Urobilinogen Qual, U 1.0 EU/dl Normal 0.1-1.0 mg/dl [facility] Comment on above: Result Comment: Urob ilinogen, U: EU/dl and mg/dl are equivalent units. Performed By: [id number] #### [facility] Services [address] [place] [address] [id number] Community Outreach Specialist: Junior Little MD WBC/HPF, U 4 #/HPF Normal 0-5 [facility] Comment on above: Performed By: #### [id number] #### [facility] Services [address] [place] [id number] Community Outreach Specialist: Junior Little MD OVon 03-10-[address] [facility] Office Visit (UCTR) ---- CHANDANA RAYMUNDO ([id number]) 1995 M Date Time Provider Department 03/10/24 11:45 AM [facility] During your visit today, we recorded the following information about you: Temperature Pulse Respiration Blood pressure 97 degrees 68/minute 22/minute 143/94 Weight 143 kg Ignacia Justice APRN.PRINT MACHINE OPERATOR 03/10/2024 1:15 PM Signed This note was created using Genasysriter. Subjective hCandana Raymundo is a 28 year old male. 28 year old male with PMH gout presents for complaints gout Acute onset of symptoms was 2 days ago +right great toe +redness +swelling +tenderness Denies trauma or injury History of gout, Endorses feels similar to prior bouts States he was at a green party and there was a cook out. Has used Ibuprofen The history is provided by the patient. No specialized language instructor was used. Pain (foot) Pain location: right [...] tab daily for 3 days with food. Amphetamine-Dextroa mphetamine (ADDERALL) 30 mg tablet Take 30 mg [...] Negative for color change, itching and pallor. Allergic/Immunologi c: Negative for environmental allergies, food allergies and immunocompromised state. Neurological: Negative for dizziness, facial asymmetry, light-headedness, numbness and headaches. Hematological: Negative for adenopathy. Does not bruise/bleed easily. Psychiatric/Behavio ral: Negative for agitation and behavioral problems. Objective [...] present. M (more content not included)... Normal [facility] CNOVon 10-20-2023 CNOV Office Visit (UCWSTR) ---- CHANDANA RAYMUNDO ([id number]) 1995 M Date Time Provider Department 10/20/23 2:45 PM [facility] During your visit today, we recorded the following information about you: Temperature Pulse Respiration Blood pressure 98.4 degrees 108/minute 16/minute 180/108 Weight 138.1 kg Angel Fried, [place] 10/20/2023 4:25 PM Signed This note was created using Ryla. Subjective Chandana Raymundo is a 27 year old male. [...] Current Outpatient Medications Medication Sig Dispense Refill Amphetamine-Dextroa mphetamine (ADDERALL) 30 mg tablet Take 30 mg by mouth once daily. (Patient not taking: Reported on 10/20/2023) ondansetron orally disintegrating (ZOFRAN ODT) 4 mg disintegrating tablet Take 1 tablet by mouth every 4 hours as needed for Nausea/Vomiting. (Patient not taking: Reported on 10/20/2023) 8 tablet 0 No current facility-administer ed medications for this visit. PAST SURGICAL HISTORY [...] days Primary Visit Diagnosis:COVID-19 [U07.1] Other Visit Diagnosis:Hypertens ion, unspecified type [I10] Prescriptions as of 10/20/2023 - Amphetamine-Dextroa mphetamine (ADDERALL) 30 mg tablet Take 30 mg by mouth once daily. - ondansetron orally disintegrating (ZOFRAN ODT) 4 mg disintegrating tablet Take 1 tablet by mouth every 4 hours as needed for Nausea/Vomiting. Problem List As Of Date: 10/20/2023 (None) Letter Text Encounter Status:Closed by ANGEL FRIED on 10/20/23 Normal [facility] Absolute lymphocyte countOrd ered By: Valeriy Mercer on 10-12-2023 Lymphocytes Auto (Unsp spec) [#/Vol] 1.99 10*3/uL 0.83-4.51 [facility] Basophil percentageOrdered B y: Valeriy Mercer on 10-12-2023 Basophils/100 WBC (Bld) 0.5 % 0-1 [facility] Chloride [Moles/Vol] 109 mmol/L 98-107 [facility] Eosinophils/100 WBC (Bld) 1.0 % 0-5 [facility] Glucose [Mass/Vol] 99 mg/dL 74-106 [facility] Neutrophils (Bld) [#/Vol] 11.1 10*3/uL 2.0-7.7 [facility] Neutrophils/100 WBC (Bld) 77.9 % 47-70 [facility] Potassium [Moles/Vol] 3.8 mmol/L 3.5-5.1 [facility] Sodium [Moles/Vol] 140 mmol/L 136-145 [facility] WBC (Bld) [#/Vol] 14.2 10*3/uL 4.4-11.0 [facility] Blood erythrocytes count (nu mber/volume)Ordered By: Valeriy Mercer on 10-12-2023 RBC (Bld) [#/Vol] 4.94 10*6/uL 4.6-6.2 [facility] Blood hemoglobin measurement (mass/volume)Ordered By: Valeriy Mercer on 10-12-2023 Hemoglobin (Bld) [Mass/Vol] 15.7 g/dL 13.0-16.5 [facility] Blood lymphocytes/100 leukoc ytesOrdered By: Valeriysymone Mercer on 10-12-2023 Lymphocytes/100 WBC (Bld) 14.1 % 19-41 [facility] Blood monocytes/100 leukocyt esOrdered By: Valeriysymone Mercer on 10-12-2023 Monocytes/100 WBC (Bld) 5.9 % 0-10 [facility] Blood platelet mean volumeOr dered By: Valeriysymone Mercer on 10-12-2023 Platelet mean volume (Bld) [Entitic vol] 9.7 fL 6.2-12.0 [facility] Determination of erythrocyte mean corpuscular volume (MCV)Ordered By: Valeriysymone Mercer on 10-12-2023 MCV (RBC) [Entitic vol] 94.3 fL 80-94 [facility] Hematocrit Auto (Bld) [Volum e fraction]Ordered By: Valeriysymone Mercer on 10-12-2023 Hematocrit (Bld) [Volume fraction] 46.6 % 40-54 [facility] Influenza virus A and B and SARS-CoV-2 (COVID-19) Ag panel - Upper respiratory specimOrdered By: Valeriysymone Mercer on 10-12-2023 SARS-CoV-2 (COVID-19) RNA HUE+probe Ql (Resp) [facility] Laboratory - Chemistry and C hemistry - challengeOrdered By: Valeriysymone Mercer on 10-12-2023 CO2 [Moles/Vol] 26.0 mmol/L 21.0-32.0 [facility] Urea nitrogen/Creatinine [Mass ratio] 12.5 mg/mg 10-20 [facility] Laboratory - Hematology and Cell countsOrdered By: Valeriysymone Mercer on 10-12-2023 Erythrocyte distribution width (RBC) [Entitic vol] 39.5 fL 35.1-43.9 [facility] Erythrocyte distribution width (RBC) [Ratio] 11.4 % 11.6-14.6 [facility] Immature granulocytes/100 WBC (Bld) 0.600 % 0.0-0.9 [facility] Comment on above: IG% - Immature Granu locytes (promyelocytes, myelocytes and metamyelocytes) > 1% indicates that a LEFT SHIFT is Present. MCH (RBC) [Entitic mass] 31.8 pg 27.0-32.0 [facility] Nucleated RBC/100 WBC (Bld) [Ratio] 0 % 0-5 [facility] MCHC Auto (RBC) [Mass/Vol]Or dered By: Valeriy Mercer on 10-12-2023 MCHC (RBC) [Mass/Vol] 33.7 g/dL 32-36 [facility] No Panel InformationOrdered By: Valeriy Mercer on 10-12-2023 Estimated Creatinine Clearance Calc 62.27 ml/min [facility] Estimated GFR (MDRD) Amer 57 mL/min >60 [facility] Comment on above: GFR Calc Estimated GFR (MDRD) Non-Af Amer 47 mL/min >60 [facility] Comment on above: Non- GFR Calc Platelets bldOrdered By: Valeriy Mercer on 10-12-2023 Platelets (Bld) [#/Vol] 248 10*3/uL 150-450 [facility] Serum or plasma calcium khanh urement (mass/volume)Ordered By: Valeriy Mercer on 10-12-2023 Calcium [Mass/Vol] 9.3 mg/dL 8.5-10.1 [facility] Serum or plasma creatinine m easurement (mass/volume)Ordered By: Valeriy Mercer on 10-12-2023 Creatinine [Mass/Vol] 1.84 mg/dL 0.70-1.30 [facility] Comment on above: The validity of the calculated GFR & GFRAA in patients over 70 years has not been determined. Clinical correlation is essential. Serum or plasma urea nitroge n measurement (mass/volume)Ordered By: Valeriy Mercer on 10-12-2023 Urea nitrogen [Mass/Vol] 23 mg/dL - [facility] Thin prep Papanicolaou smear with manual screeningOrdered By: Valeriy Mercer on 10-12-2023 Thin prep Papanicolaou smear with manual screening 5 5-15 [facility] CNOVon 06-14-2023 CNOV Office Visit (UCWSTR) ---- CHANDANA RAYMUNDO ([id number]) 1995 M Date Time Provider Department 06/14/23 1:30 PM TIFFANY SAMANO UCWSTR During your visit today, we recorded the following information about you: Temperature Pulse Respiration Blood pressure 97.8 degrees 88/minute 16/minute 152/88 Weight 129.7 kg Tiffany Samano APRN.CNP 06/14/2023 1:31 PM Signed ASSESSMENT/PLAN: 1. Visit for suture removal - ICD9: V58.32, ICD10: Z48.02 - 8 sutures removed. One suture has a short tail piece of suture remaining beneath scab. Patient advised to do warm compresses to this area and the scab will loosen and peel off, taking remaining piece of suture with it. He verbalized understanding. Tiffany Samano APRN.Tiffany Lees APRN.PRINT MACHINE OPERATOR 06/19/2023 3:08 PM Addendum Subjective Suture Removal Chandana Raymundo is a 27 year old male [...] LAPAROSCOPIC APPENDECTOMY 03/05/14 ALLERGIES Penicillins MEDICATIONS - Amphetamine-Dextroa mphetamine (ADDERALL) 30 mg tablet Take 30 mg [...] of suture with it. He verbalized understanding. Tiffany Samano APRN.PRINT MACHINE OPERATOR Referring Provider: SELF [[id number]] Allergies As of Date: 06/14/2023 Noted Allergy Reaction PENICILLINS 08/19/2015 4 - Hives Date Reviewed: 06/14/2023 Reviewed by: Julieta London - Fully Assessed Reason for Visit: Suture Removal [105] Cmt: right thigh x +2 weeks, ?8 sutures Primary Visit Diagnosis:Visit for suture removal [Z48.02] Prescriptions as of 06/19/2023 - Amphetamine-Dextroa mphetamine (ADDERALL) 30 mg tablet Take 30 mg [...] of suture with it. He verbalized understanding. Tiffany Samano APRN.PRINT MACHINE OPERATOR Encounter Status:Closed by TIFFANY SAMANO on 06/14/23 Normal [facility] Absolute lymphocyte countOrd ered By: Dr. Winkler on 03-08-2023 Lymphocytes Auto (Unsp spec) [#/Vol] 2.05 10*3/uL 0.83-4.51 [facility] Basophil percentageOrdered B y: Dr. Winkler on 03-08-2023 Basophils/100 WBC (Bld) 0.6 % 0-1 [facility] Chloride [Moles/Vol] 110 mmol/L 98-107 [facility] Eosinophils/100 WBC (Bld) 2.1 % 0-5 [facility] Glucose [Mass/Vol] 143 mg/dL 74-106 [facility] Comment on above: Fasting Glucose resu lt greater than or equal to 126 mg/dL suggests DIABETES MELLITUS per A.D.A. criteria. Neutrophils (Bld) [#/Vol] 7.3 10*3/uL 2.0-7.7 [facility] Neutrophils/100 WBC (Bld) 69.1 % 47-70 [facility] Potassium [Moles/Vol] 4.2 mmol/L 3.5-5.1 [facility] Sodium [Moles/Vol] 143 mmol/L 136-145 [facility] WBC (Bld) [#/Vol] 10.6 10*3/uL 4.4-11.0 [facility] Blood erythrocytes count (nu mber/volume)Ordered By: Dr. Winkler on 03-08-2023 RBC (Bld) [#/Vol] 4.54 10*6/uL 4.6-6.2 [facility] Blood hemoglobin measurement (mass/volume)Ordered By: Dr. Winkler on 03-08-2023 Hemoglobin (Bld) [Mass/Vol] 14.8 g/dL 13.0-16.5 [facility] Blood lymphocytes/100 leukoc ytesOrdered By: Dr. Winkler on 03-08-2023 Lymphocytes/100 WBC (Bld) 19.4 % 19-41 [facility] Blood monocytes/100 leukocyt esOrdered By: Dr. Winkler on 03-08-2023 Monocytes/100 WBC (Bld) 8.3 % 0-10 [facility] Blood platelet mean volumeOr dered By: Dr. Winkler on 03-08-2023 Platelet mean volume (Bld) [Entitic vol] 10.1 fL 6.2-12.0 [facility] Determination of erythrocyte mean corpuscular volume (MCV)Ordered By: Dr. Winkler on 03-08-2023 MCV (RBC) [Entitic vol] 97.1 fL 80-94 [facility] Hematocrit Auto (Bld) [Volum e fraction]Ordered By: Dr. Winkler on 03-08-2023 Hematocrit (Bld) [Volume fraction] 44.1 % 40-54 [facility] Laboratory - Chemistry and C hemistry - challengeOrdered By: Dr. Winkler on 03-08-2023 CO2 [Moles/Vol] 27.0 mmol/L 21.0-32.0 [facility] Natriuretic peptide B (Bld) [Mass/Vol] 10.9 pg/mL 0-100 [facility] Urea nitrogen/Creatinine [Mass ratio] 15.7 mg/mg 10-20 [facility] Laboratory - Hematology and Cell countsOrdered By: Dr. Winkler on 03-08-2023 Erythrocyte distribution width (RBC) [Entitic vol] 42.8 fL 35.1-43.9 [facility] Erythrocyte distribution width (RBC) [Ratio] 11.9 % 11.6-14.6 [facility] Immature granulocytes/100 WBC (Bld) 0.500 % 0.0-0.9 [facility] Comment on above: IG% - Immature Granu locytes (promyelocytes, myelocytes and metamyelocytes) > 1% indicates that a LEFT SHIFT is Present. MCH (RBC) [Entitic mass] 32.6 pg 27.0-32.0 [facility] Nucleated RBC/100 WBC (Bld) [Ratio] 0 % 0-5 [facility] MCHC Auto (RBC) [Mass/Vol]Or dered By: Dr. Winkler on 03-08-2023 MCHC (RBC) [Mass/Vol] 33.6 g/dL 32-36 [facility] No Panel InformationOrdered By: Dr. Winkler on 03-08-2023 Troponin I High Sensitivity 8 pg/mL 3.0-78.0 [facility] Comment on above: Please Note: New Renetta t Units and Gender Specific Reference Ranges. For more information see Policy Stat Procedure [place] High Sensitivity Troponin (TNIH) and attachments. D-Dimer Quantitative (PE/DVT) 0.30 FEU/ug/m 0.27-0.49 [facility] Comment on above: NORMAL D-Dimer level (<0.50) indicates no DVT or PE. Estimated Creatinine Clearance Calc 69.02 ml/min [facility] Estimated GFR (MDRD) Amer 64 mL/min >60 [facility] Comment on above: GFR Calc Estimated GFR (MDRD) Non-Af Amer 53 mL/min >60 [facility] Comment on above: Non- GFR Calc Platelets bldOrdered By: Dr. Winkler on 03-08-2023 Platelets (Bld) [#/Vol] 205 10*3/uL 150-450 [facility] Serum or plasma calcium khanh urement (mass/volume)Ordered By: Dr. Winkler on 03-08-2023 Calcium [Mass/Vol] 8.6 mg/dL 8.5-10.1 [facility] Serum or plasma creatinine m easurement (mass/volume)Ordered By: Dr. Winkler on 03-08-2023 Creatinine [Mass/Vol] 1.66 mg/dL 0.70-1.30 [facility] Comment on above: The validity of the calculated GFR & GFRAA in patients over 70 years has not been determined. Clinical correlation is essential. Serum or plasma urea nitroge n measurement (mass/volume)Ordered By: Dr. Winkler on 03-08-2023 Urea nitrogen [Mass/Vol] 26 mg/dL 7-18 [facility] Thin prep Papanicolaou smear with manual screeningOrdered By: Dr. Winkler on 03-08-2023 Thin prep Papanicolaou smear with manual screening 6 5-15 [facility] Absolute lymphocyte countOrd ered By: Dr. Ann on 02-19-2023 Lymphocytes Auto (Unsp spec) [#/Vol] 1.96 10*3/uL 0.83-4.51 [facility] Basophil percentageOrdered B y: Dr. Ann on 02-19-2023 Basophils/100 WBC (Bld) 0.4 % 0-1 [facility] Chloride [Moles/Vol] 108 mmol/L 98-107 [facility] Eosinophils/100 WBC (Bld) 1.5 % 0-5 [facility] Glucose [Mass/Vol] 86 mg/dL 74-106 [facility] Neutrophils (Bld) [#/Vol] 12.7 10*3/uL 2.0-7.7 [facility] Neutrophils/100 WBC (Bld) 78.7 % 47-70 [facility] Potassium [Moles/Vol] 3.7 mmol/L 3.5-5.1 [facility] Sodium [Moles/Vol] 138 mmol/L 136-145 [facility] WBC (Bld) [#/Vol] 16.1 10*3/uL 4.4-11.0 [facility] Blood erythrocytes count (nu mber/volume)Ordered By: Dr. Ann on 02-19-2023 RBC (Bld) [#/Vol] 5.15 10*6/uL 4.6-6.2 [facility] Blood hemoglobin measurement (mass/volume)Ordered By: Dr. Ann on 02-19-2023 Hemoglobin (Bld) [Mass/Vol] 17.3 g/dL 13.0-16.5 [facility] Blood lymphocytes/100 leukoc ytesOrdered By: Dr. Ann on 02-19-2023 Lymphocytes/100 WBC (Bld) 12.2 % 19-41 [facility] Blood monocytes/100 leukocyt esOrdered By: Dr. Ann on 02-19-2023 Monocytes/100 WBC (Bld) 6.6 % 0-10 [facility] Blood platelet mean volumeOr dered By: Dr. Ann on 02-19-2023 Platelet mean volume (Bld) [Entitic vol] 10.1 fL 6.2-12.0 [facility] COVID-19 virus antigen assay Ordered By: Dr. Ann on 02-19-2023 SARS-CoV-2 (COVID-19) Ag IA.rapid Ql (Resp) [facility] Determination of erythrocyte mean corpuscular volume (MCV)Ordered By: Dr. Ann on 02-19-2023 MCV (RBC) [Entitic vol] 95.5 fL 80-94 [facility] Hematocrit Auto (Bld) [Volum e fraction]Ordered By: Dr. Ann on 02-19-2023 Hematocrit (Bld) [Volume fraction] 49.2 % 40-54 [facility] Laboratory - Chemistry and C hemistry - challengeOrdered By: Dr. Ann on 02-19-2023 CO2 [Moles/Vol] 25.0 mmol/L 21.0-32.0 [facility] Urea nitrogen/Creatinine [Mass ratio] 10.7 mg/mg 10-20 [facility] Laboratory - Hematology and Cell countsOrdered By: Dr. Ann on 02-19-2023 Erythrocyte distribution width (RBC) [Entitic vol] 41.1 fL 35.1-43.9 [facility] Erythrocyte distribution width (RBC) [Ratio] 11.7 % 11.6-14.6 [facility] Immature granulocytes/100 WBC (Bld) 0.600 % 0.0-0.9 [facility] Comment on above: IG% - Immature Granu locytes (promyelocytes, myelocytes and metamyelocytes) > 1% indicates that a LEFT SHIFT is Present. MCH (RBC) [Entitic mass] 33.6 pg 27.0-32.0 [facility] Nucleated RBC/100 WBC (Bld) [Ratio] 0 % 0-5 [facility] MCHC Auto (RBC) [Mass/Vol]Or dered By: Dr. Ann on 02-19-2023 MCHC (RBC) [Mass/Vol] 35.2 g/dL 32-36 [facility] No Panel InformationOrdered By: Dr. Ann on 02-19-2023 Estimated Creatinine Clearance Calc 72.06 ml/min [facility] Estimated GFR (MDRD) Amer 67 mL/min >60 [facility] Comment on above: GFR Calc Estimated GFR (MDRD) Non-Af Amer 56 mL/min >60 [facility] Comment on above: Non- GFR Calc Troponin I High Sensitivity 9 pg/mL 3.0-78.0 [facility] Comment on above: Please Note: New Renetta t Units and Gender Specific Reference Ranges. For more information see Policy Stat Procedure [place] High Sensitivity Troponin (TNIH) and attachments. Platelets bldOrdered By: Dr. Ann on 02-19-2023 Platelets (Bld) [#/Vol] 256 10*3/uL 150-450 [facility] Serum or plasma calcium khanh urement (mass/volume)Ordered By: Dr. Ann on 02-19-2023 Calcium [Mass/Vol] 9.3 mg/dL 8.5-10.1 [facility] Serum or plasma creatinine m easurement (mass/volume)Ordered By: Dr. Ann on 02-19-2023 Creatinine [Mass/Vol] 1.59 mg/dL 0.70-1.30 [facility] Comment on above: The validity of the calculated GFR & GFRAA in patients over 70 years has not been determined. Clinical correlation is essential. Serum or plasma urea nitroge n measurement (mass/volume)Ordered By: Dr. Ann on 02-19-2023 Urea nitrogen [Mass/Vol] 17 mg/dL 7-18 [facility] Thin prep Papanicolaou smear with manual screeningOrdered By: Dr. Ann on 02-19-2023 Thin prep Papanicolaou smear with manual screening 5 5-15 [facility] ED Note-Provideron 8 ED Note-Provider Normal [facility] ([place]) Pat Eduon 12-28-2017 [facility] ([place]) Patient Summary Documentson 12-28-2017 Patient Summary Documents [facility] ([place]) Vital Signs Date Time Vital Sign Value Performing Clinician Iban osborn 04-21-2025 10:44-0400 Body temperature 97.9 [degF] No Primary Care Physician [facility] 04-21-2025 10:44-0400 Diastolic blood pressure 109 mm[Hg] No Primary Care Physician [facility] 04-21-2025 10:44-0400 Heart rate 79 /min No Primary Care Physician [facility] 04-21-2025 10:44-0400 Respiratory rate 16 /min No Primary Care Physician [facility] 04-21-2025 10:44-0400 SaO2% (BldA) [Mass fraction] 97 % No Primary Care Physician [facility] 04-21-2025 10:44-0400 Systolic blood pressure 186 mm[Hg] No Primary Care Physician [facility] 04-21-2025 07:49-0400 Body height 177.8 cm No Primary Care Physician [facility] 04-21-2025 07:49-0400 Body mass index (BMI) [Ratio] 43 kg/m2 No Primary Care Physician [facility] 04-21-2025 07:49-0400 Body weight 136 kg No Primary Care Physician [facility] 04-16-2025 18:09-0400 Body temperature 98.2 [degF] No Primary Care Physician [facility] 04-16-2025 18:09-0400 Diastolic blood pressure 108 mm[Hg] No Primary Care Physician [facility] 04-16-2025 18:09-0400 Heart rate 82 /min No Primary Care Physician [facility] 04-16-2025 18:09-0400 Respiratory rate 16 /min No Primary Care Physician [facility] 04-16-2025 18:09-0400 SaO2% (BldA) [Mass fraction] 100 % No Primary Care Physician [facility] 04-16-2025 18:09-0400 Systolic blood pressure 174 mm[Hg] No Primary Care Physician [facility] 04-16-2025 17:28-0400 Body height 177.8 cm No Primary Care Physician [facility] 04-16-2025 17:28-0400 Body mass index (BMI) [Ratio] 43.5 kg/m2 No Primary Care Physician [facility] 04-16-2025 17:28-0400 Body weight 137.75 kg No Primary Care Physician [facility] 03-30-2025 14:35-0400 Body temperature 97.6 [degF] No Primary Care Physician [facility] 03-30-2025 14:35-0400 Diastolic blood pressure 108 mm[Hg] No Primary Care Physician [facility] 03-30-2025 14:35-0400 Heart rate 73 /min No Primary Care Physician [facility] 03-30-2025 14:35-0400 Respiratory rate 18 /min No Primary Care Physician [facility] 03-30-2025 14:35-0400 SaO2% (BldA) [Mass fraction] 98 % No Primary Care Physician [facility] 03-30-2025 14:35-0400 Systolic blood pressure 173 mm[Hg] No Primary Care Physician [facility] 03-30-2025 13:00-0400 Body height 177.8 cm No Primary Care Physician [facility] 03-30-2025 13:00-0400 Body mass index (BMI) [Ratio] 43.3 kg/m2 No Primary Care Physician [facility] 03-30-2025 13:00-0400 Body weight 136.98 kg No Primary Care Physician [facility] 12-22-2024 13:23-0500 Body temperature 98.2 [degF] No Primary Care Physician [facility] 12-22-2024 13:23-0500 Diastolic blood pressure 102 mm[Hg] No Primary Care Physician [facility] 12-22-2024 13:23-0500 Heart rate 89 /min No Primary Care Physician [facility] 12-22-2024 13:23-0500 Respiratory rate 15 /min No Primary Care Physician [facility] 12-22-2024 13:23-0500 SaO2% (BldA) [Mass fraction] 99 % No Primary Care Physician [facility] 12-22-2024 13:23-0500 Systolic blood pressure 155 mm[Hg] No Primary Care Physician [facility] 12-06-2024 04:31-0500 Body temperature 98.7 [degF] No Primary Care Physician [facility] 12-06-2024 04:31-0500 Diastolic blood pressure 108 mm[Hg] No Primary Care Physician [facility] 12-06-2024 04:31-0500 Heart rate 79 /min No Primary Care Physician [facility] 12-06-2024 04:31-0500 Respiratory rate 18 /min No Primary Care Physician [facility] 12-06-2024 04:31-0500 SaO2% (BldA) [Mass fraction] 97 % No Primary Care Physician [facility] 12-06-2024 04:31-0500 Systolic blood pressure 181 mm[Hg] No Primary Care Physician [facility] 03-10-2024 11:52-0400 Body temperature 97 [degF] Ignacia Justice APRN.CNP Work Phone: [facility] 03-10-2024 11:52-0400 Body weight 143 kg Ignacia Justice APRN.CNP Work Phone: [facility] 03-10-2024 11:52-0400 Diastolic blood pressure 94 mm[Hg] Ignacia Justice DENTAL CERAMIST ASSISTANT.PRINT MACHINE OPERATOR Work Phone: [facility] 03-10-2024 11:52-0400 Heart rate 68 /min Ignacia Justice DENTAL CERAMIST ASSISTANT.PRINT MACHINE OPERATOR Work Phone: [facility] 03-10-2024 11:52-0400 Respiratory rate 22 /min Ignacia Justice DENTAL CERAMIST ASSISTANT.PRINT MACHINE OPERATOR Work Phone: [facility] [facility] 03-10-2024 11:52-0400 SaO2% (BldA) [Mass fraction] 97 % Ignacia Justice DENTAL CERAMIST ASSISTANT.PRINT MACHINE OPERATOR Work Phone: [facility] 03-10-2024 11:52-0400 Systolic blood pressure 143 mm[Hg] Ignacia Justice DENTAL CERAMIST ASSISTANT.PRINT MACHINE OPERATOR Work Phone: [facility] 10-20-2023 14:46-0500 Body temperature 98.4 [degF] Angel Athy PA-C Work Phone: [facility] 10-20-2023 14:46-0500 Body weight 138.07 kg Angel Athy PA-C Work Phone: [facility] 10-20-2023 14:46-0500 Diastolic blood pressure 108 mm[Hg] Angel Athy PA-C Work Phone: [facility] 10-20-2023 14:46-0500 Heart rate 108 /min Angel Athy PA-C Work Phone: [facility] 10-20-2023 14:46-0500 Respiratory rate 16 /min Angel Athy PA-C Work Phone: [facility] 10-20-2023 14:46-0500 SaO2% (BldA) [Mass fraction] 97 % Angel Athy PA-C Work Phone: [facility] 10-20-2023 14:46-0500 Systolic blood pressure 180 mm[Hg] Angel Athy PA-C Work Phone: [facility] 10-12-2023 21:48-0500 Respiratory rate 14 /min [facility] 10-12-2023 20:13-0500 Heart rate 89 /min [facility] 10-12-2023 19:19-0500 Body height 177.8 cm [facility] 10-12-2023 19:19-0500 Body mass index (BMI) [Ratio] 43.4 kg/m2 [facility] 10-12-2023 19:19-0500 Body temperature 97.2 [degF] [facility] 10-12-2023 19:19-0500 Body weight 137.52 kg [facility] 10-12-2023 19:19-0500 Diastolic blood pressure 103 mm[Hg] [facility] 10-12-2023 19:19-0500 SaO2% (BldA) [Mass fraction] 96 % [facility] 10-12-2023 19:19-0500 Systolic blood pressure 166 mm[Hg] [facility] 05-25-2023 10:43-0400 Body height 177.8 cm [facility] 05-25-2023 10:43-0400 Body mass index (BMI) [Ratio] 41.4 kg/m2 [facility] 05-25-2023 10:43-0400 Body temperature 98 [degF] [facility] 05-25-2023 10:43-0400 Body weight 131.08 kg [facility] 05-25-2023 10:43-0400 Diastolic blood pressure 101 mm[Hg] [facility] 05-25-2023 10:43-0400 Heart rate 76 /min [facility] 05-25-2023 10:43-0400 Respiratory rate 14 /min [facility] 05-25-2023 10:43-0400 SaO2% (BldA) [Mass fraction] 97 % [facility] 05-25-2023 10:43-0400 Systolic blood pressure 151 mm[Hg] [facility] 03-08-2023 16:46-0400 Respiratory rate 16 /min [facility] 03-08-2023 15:00-0400 Diastolic blood pressure 104 mm[Hg] [facility] 03-08-2023 15:00-0400 Heart rate 83 /min [facility] 03-08-2023 15:00-0400 SaO2% (BldA) [Mass fraction] 96 % [facility] 03-08-2023 15:00-0400 Systolic blood pressure 150 mm[Hg] [facility] 03-08-2023 12:29-0400 Body height 177.8 cm [facility] 03-08-2023 12:29-0400 Body mass index (BMI) [Ratio] 35.9 kg/m2 [facility] 03-08-2023 12:29-0400 Body temperature 96.9 [degF] [facility] 03-08-2023 12:29-0400 Body weight 113.39 kg [facility] 02-19-2023 20:02-0400 Diastolic blood pressure 89 mm[Hg] [facility] 02-19-2023 20:02-0400 Heart rate 95 /min [facility] 02-19-2023 20:02-0400 Respiratory rate 18 /min [facility] 02-19-2023 20:02-0400 SaO2% (BldA) [Mass fraction] 93 % [facility] 02-19-2023 20:02-0400 Systolic blood pressure 150 mm[Hg] [facility] 02-19-2023 17:39-0400 Body height 177.8 cm [facility] 02-19-2023 17:39-0400 Body mass index (BMI) [Ratio] 38.2 kg/m2 [facility] 02-19-2023 17:39-0400 Body temperature 97 [degF] [facility] 02-19-2023 17:39-0400 Body weight 121.1 kg [facility] 04-19-2022 15:01-0400 Diastolic blood pressure 79 mm[Hg] [facility] Work Phone: 04-19-2022 15:01-0400 Heart rate 84 /min [facility] Work Phone: 04-19-2022 15:01-0400 Respiratory rate 17 /min [facility] Work Phone: 04-19-2022 15:01-0400 SaO2% (BldA) [Mass fraction] 97 % [facility] Work Phone: 04-19-2022 15:01-0400 Systolic blood pressure 152 mm[Hg] [facility] Work Phone: 04-19-2022 12:55-0400 Body height 180.34 cm [facility] Work Phone: 04-19-2022 12:55-0400 Body mass index (BMI) [Ratio] 39.7 kg/m2 [facility] Work Phone: 04-19-2022 12:55-0400 Body temperature 98.5 [degF] [facility] Work Phone: 04-19-2022 12:55-0400 Body weight 129.27 kg [facility] Work Phone: Encounters Encounter Date Encounter Type Care Provider Facility Start: 04-21-2025 End: 04-21-2025 Emergency department patient visit No Primary Care Physician -Emergency Department Work Phone: Start: 04-16-2025 End: 04-16-2025 Emergency department patient visit No Primary Care Physician -Emergency Department Work Phone: Start: 03-30-2025 End: 03-30-2025 Emergency department patient visit No Primary Care Physician -Emergency Department Work Phone: Start: 12-22-2024 ambulatory Ed Physician Provider F acility:[facility] Start: 12-22-2024 End: 12-22-2024 Emergency department patient visit Dr. Ryan Crump MD -Emergency Department Work Phone: Start: 12-06-2024 End: 12-06-2024 Emergency department patient visit Dr. Chandana Huang DO -Emergency Department Work Phone: Start: 10-29-2024 End: 11-01-2024 Evaluation and management of inpatient 837 NO FAMILY PHYSICIAN Facility:[id number] Start: 03-10-2024 End: 03-10-2024 ambulatory Facility:[facility] Start: 03-10-2024 End: 03-10-2024 Patient encounter procedure Ignacia Kellen DENTAL CERAMIST ASSISTANT.PRINT MACHINE OPERATOR Work Phone: [facility] Comment on above: Gouty arthritis of r ight great toe (Primary Dx) Start: 10-20-2023 End: 10-20-2023 ambulatory Facility:[facility] Start: 10-20-2023 End: 10-20-2023 Patient encounter procedure Angel Fried PA-C Work Phone: [facility] Comment on above: COVID-19 (Primary Dx ); Hypertension, unspecified type Start: 10-12-2023 End: 10-12-2023 Emergency department patient visit [facility]Emergency Department Work Phone: Start: 06-14-2023 End: 06-14-2023 ambulatory Facility:[facility] Start: 05-25-2023 End: 05-25-2023 Emergency department patient visit [facility]Emergency Department Work Phone: Start: 03-08-2023 End: 03-08-2023 Patient encounter procedure Marylu Delaney DENTAL CERAMIST ASSISTANT.PRINT MACHINE OPERATOR Work Phone: [facility] Comment on above: Chest pain, unspecif ied type (Primary Dx); Bloody stool Start: 03-08-2023 End: 03-08-2023 Emergency department patient visit [facility]Emergency Department Start: 02-19-2023 End: 02-19-2023 Emergency department patient visit [facility]gency Department Start: 04-19-2022 End: 04-19-2022 Emergency department patient visit [facility]gency Department Start: 07-25-2021 End: 07-25-2021 Emergency department patient visit [facility] Start: 05-29-2021 End: 05-29-2021 Emergency department patient visit [facility] Start: 12-28-2017 End: 12-28-2017 Emergency department patient visit NONE PHYSICIAN Facility:A Procedures Date Procedure Procedure Detail Performing Clinician Start: 04-21-2025 Estimated creatinine clearance No Primary Care Physician Start: 04-21-2025 X-ray of ankle, three or more views No Primary Care Physician Start: 03-30-2025 Plain chest X-ray No Primary [...] DTaP,Tdap,Td Vaccine (9 - Td or Tdap) [facility] Start: 04-21-2025 [facility] Start: 04-16-2025 [facility] Start: 03-30-2025 [facility] Start: 12-22-2024 [facility] Start: 12-06-2024 [facility] Start: 12-06-2024 Respiratory secretion precautions [facility] Start: 06-26-2024 Influenza vaccination Influenza Vaccine (Season Ended) [facility] Start: 10-26-2023 Behavioral Health Screening Behavioral Health Screening [facility] Start: 10-12-2023 [facility] Start: 06-26-2023 Covid-19 Vaccine ( season) Covid-19 Vaccine ( season) [facility] Start: 06-26-2023 Influenza vaccination [facility] Start: 03-08-2023 Electrocardiographic procedure [facility] Start: 03-08-2023 [facility] Start: 02-19-2023 [facility] Start: 02-19-2023 End: 02-19-2023 [facility] Start: 10-26-2022 DEPRESSION ASSESSMENT DEPRESSION ASSESSMENT [facility] Start: 2014 Urine microalbumin profile DTAP,TDAP,TD (1 - Tdap) [facility] Start: 2013 HEPATITIS C SCREENING HEPATITIS C SCREENING [facility] Start: 2013 Hepatitis C screening Hepatitis C Screening [facility] Start: 2013 HIV SCREENING HIV SCREENING [facility] Start: 2013 HIV screening HIV Screening [facility] Start: 2001 PNEUMOCOCCAL (1 - PCV) PNEUMOCOCCAL (1 - PCV) [facility] Start: 2001 Pneumococcal vaccination Pneumococcal Vaccine (1 of 2 - PCV) [facility] Start: 04-22-1996 COVID-19 VACCINE (#1) COVID-19 VACCINE (#1) [facility] Start: 1995 HEPATITIS B (1 of 3 - 3-dose series) HEPATITIS B (1 of 3 - 3-dose series) [facility] Patient Education [facility] Work Phone: Patient referral [facility] Work Phone: Immunizations Immunization Date Immunization Notes Care Provider Fa cility 05-29-2023 tetanus toxoid, redu chloé diphtheria toxoid, and acellular pertussis vaccine, adsorbed [facility] 07-04-2015 tetanus toxoid, redu chloé diphtheria toxoid, and acellular pertussis vaccine, adsorbed [facility] 07-17-2009 influenza virus vaccine, unspecified formulation Angel Fried PA-C Work Phone: [facility] Payers Date Payer Category Payer Self-pay [id number] 2022 Medicaid [facility] MEDIC A[facility] [id number] 2022-Present [phone] [address] [place] [address] Medicaid [id number] 2013 Unknown [id number] 1995 Unknown [id number] 1995 Unknown [id number] 1995 Unknown [id number] 1959 Unknown [id number] Unknown [id number] Unknown [id number] Unknown [id number] Unknown [id number] Unknown [id number] Unknown [id number] Social History Date Type Detail Facility Start: 04-19-2022 End: 10-12-2023 Tobacco smoking status [facility] Unknown if ever smoked [facility] Start: 1995 Sex Assigned At Male [facility] Start: 08-19-2015 End: 04-21-2025 Tobacco smoking status [facility] Smokes tobacco daily [facility] History of tobacco use Cigarette Smoker [facility] Start: 08-19-2015 End: 03-10-2024 Cigarettes smoked current (pack per day) - Reported 0.5 [facility] Start: 08-19-2015 End: 03-10-2024 Alcohol intake Current drinker of alcohol (finding) [facility] Start: 08-19-[address] [facility] Start: 1995 Sex Assigned At Not on file [facility] Start: 03-05-2014 Rare [facility] Start: 03-05-2014 None [facility] Start: 03-05-2014 With Family [facility] Start: 10-20-2023 End: 03-10-2024 Tobacco use panel [facility] Mental Status Date Assessment Result Facility 12-06-2024 Cognitive function Level Of Cons ciousness Awake;Alert;Appropriate;Follow s Commands [facility] Work Phone: 03-08-2023 Cognitive function Awake;Alert;A ppropriate;Follow s Commands [facility] Work Phone: Clinical Notes 02-19-2023 to 04-21-2025 Kellen IgnaciaJESÚS olson.BONNY - 03/10/2024 12:02 PM EDTAAngel carter PA-C - 10/20/2023 4:21 PM EST Note Date & Type Note Facility 04-21-2025 Discharge summary [facility] 04-21-2025 Radiology Diagnostic study note [facility] Imaging Services [address] [place] [address] Ankle min 3 Views MR#: [id number] Acct: [id number] Name: CHANDANA RAYMUNDO Rep #: [id number] : 1995 M 29 From: Esteban Lopez MD PCP: Care Physician,No Primary Status: REG ER Study:Ankle min 3 Views Date of Exam: Exam# [id number] Ordering Dr: Estuardo Maloney MD PROCEDURE: ANKLE MIN 3 VIEWS 04/21/2025 REASON FOR EXAM: PAIN TECHNIQUE: ANKLE MIN 3 VIEWS COMPARISON: None FINDINGS: Bones: No fracture seen. Joints: Normal alignment. Mortise appears intact. No effusion. Soft tissues: Soft tissues are unremarkable. Other: RAD/Ankle min 3 Views IMPRESSION: NEGATIVE ANKLE SERIES Reading Location: [id number] CC: Dr. Sung Maloney MD; No Primary Care Physician ~ Vegetable Thinner: Signed [facility] 03-30-2025 Radiology Diagnostic study note [facility] Imaging Services [address] [place] [address] Chest 1 View (Portable) MR#: [id number] Acct: [id number] Name: CHANDANA RAYMUNDO Rep #: [id number] : 1995 M 29 From: Elicia Dial MD PCP: Care Physician,No Primary Status: REG ER Study:Chest 1 View (Portable) Date of Exam: 03/30/25 Exam# [id number] Ordering Dr: Geovani Duarte DO PROCEDURE: CHEST [...] 1. No active cardiopulmonary disease. Reading Location: [place] [address] CC: Dr. Cruz Duarte DO; No Primary Care Physician ~ Vegetable Thinner: Signed [facility] 10-29-2024 Note ED Nursing Discharge Summary Entered On: 10/29/2024 22:04 EST Performed On: 10/29/2024 21:36 EST by Julieta Tucker RN PR Information [id number] ED IV's : No IV ED IV Site Assessment : No IV ED Vitals Completed : Yes ED Final Assessment Completed : Yes ED Progress Note Completed : Yes Complete all PRN/Pain response forms? : N/A ED Disassociate Patient from Monitor : N/A Updated Depart Time : Yes Mode of Discharge : Stretcher Discharge Transportation : Ground ambulance ED Belongings sent w patient [id number] : Yes Valuables Complete : No Julieta Tucker RN - 10/29/2024 22:03 EST Education Instructions given to : Patient TeachBack Methodology : Printed Material Barriers to Learning : None evident Julieta Tucker RN - 10/29/2024 22:03 EST Post-Hospital Education Adult Grid Plan of Care : Verbalizes understanding Julieta Tucker RN - 10/29/2024 22:03 EST Valuables/Belongings Belongings Sent Home With : sent to [employer] clothes, [place], cellphone car keys Julieta Tucker RN - 10/29/2024 22:03 EST ED Assistance Summary Assistance Given? : No Julieta Tucker RN - 10/29/2024 22:03 EST [facility] 03-10-2024 Note HNO ID: [id number] Author: IGNACIA JUSTICE APRN.PRINT MACHINE OPERATOR Service: ? Author Type: Nurse Practitioner Type: Progress Notes Filed: 03/10/2024 13:15 Note Text: This note was created using Genasysriter. Subjective Chandana Raymundo is a 28 year old male. 28 year old male with PMH gout presents for complaints gout Acute onset of symptoms was 2 days ago +right great toe +redness +swelling +tenderness Denies trauma or injury History of gout, Endorses feels similar to prior bouts States he was at a green party and there was a cook out. Has used Ibuprofen The history is provided by the patient. No specialized language instructor was used. Pain (foot) Pain location: right [...] Right great to (more content not included)... [facility] 03-10-2024 History of Present illness Narrative This note was created using Genasysriter. Subjective Chandana Raymundo is a 28 year old male. 28 year old male with PMH gout presents for complaints gout Acute onset of symptoms was 2 days ago +right great toe +redness +swelling +tenderness Denies trauma or injury History of gout, Endorses feels similar to prior bouts States he was at a green party and there was a cook out. Has used Ibuprofen The history is provided by the patient. No specialized language instructor was used. Pain (foot) Pain location: right [...] Prednisone taper Avoid triggers F/U with PCP Ignacia Justice APRN.PRINT MACHINE OPERATOR documented in this encounter [facility] 10-20-2023 Note HNO ID: [id number] Author: Angel Fried PA-C Service: ? Author Type: Physician Physical Science Aide Type: Progress Notes Filed: 10/20/2023 4:25 PM Note Text: This note was created using Genasysriter. Subjective Chandana Raymundo is a 27 year old male. [...] symptoms of hypertension today. Angel Fried PA-C [facility] 10-20-2023 History of Present illness Narrative This note was created using Ryla. Subjective Chandana Raymundo is a 27 year old male. [...] Angel Fried PA-C documented in this encounter [facility] 10-12-2023 Discharge summary Note Date/Time October 12, 2023 7:51pm [facility] Medical Records Department [address] [place] [address] Emergency Department Summary 10/12/23 MR#: [id number] Acct: [id number] Name: CHANDANA RAYMUNDO Rep #:[id number] : 1995 27 [...] similar symptoms: No Recent Illness/Hospitalization: No PFSH PFSH Medical History Asthma attack Kidney disease Liver [...] 77.9 H Lymph % (Auto) 14.1 L [place] % (Auto) 5.9 Eos % (Auto) 1.0 [...] 20:31 EST Reading Location ID and State: [facility] / [place] Tel [phone], Service support , Treatment and Re-Evaluation :: [...] days. He also was instructed follow-up with [facility] in 1 to 2 weeks to have [...] are elevated. You should follow-[facility] at the [facility] for recheck in 1 to 2 weeks Disposition Disposition: Home, Self Care What to do if you have Problems For any increased pain, shortness of breath, bleeding, nausea or vomiting, chestpain, or any unexpected problems, contact your Primary Care Provider. Call [facility] ([phone]) or report to the closest Emergency Room. Call 911 if necessary. 10/12/232133 <Electronically signed by Valeriy Mercer MD> Cosigner Signature (if applicable): CC: No Primary Care Physician ~ Signed [facility] Work Phone: 1(426) 186-356208-20-2023 NoteHNO ID: [id number] Author: Tiffany Samano APRN.PRINT MACHINE OPERATOR Service: ? Author Type: Nurse Practitioner Type: Progress Notes Filed: 06/19/2023 3:08 PM Note Text: Subjective Suture Removal Chandana Raymundo is a 27 year old male [...] of suture with it. He verbalized understanding. Tiffany Samano APRN.[facility]05-14-[address] Winkler [facility] March 08, 2023 4:21pm Note Date/Time March 08, 2023 12:[address] [facility] Medical Records Department [address] [place] [address] Emergency Department Summary 03/08/23 MR#: [id number] Acct: [id number] Name: CHANDANA RAYMUNDO Rep #:[id number] : 1995 27 From: Chad Ashby PCP: Care Physician,No Primary Status :REG ER Location: ED HPI History of Present Illness Chief Complaint: Chest Pain [facility] Medical History (Updated 03/08/23 @ 16:[address] Chad Winkler, DO) Asthma attack Kidney disease Liver abscess [...] MDM MDM Narrative Medical decision making narrative: HISTORY OF [...] reviewed, Vital signs reviewed Constitutional: please see mdm HENT: MMM Eyes: Pupils equal round and [...] pathognomonic EKG changes (no diffuse ST elevations, MD depressions). GI etiology (i.e. Boerhaave syndrome) less [...] % (Auto) 69.1 Lymph % (Auto) 19.4 [place]ock % (Auto) 8.3 Eos % (Auto) 2.1 [...] (Auto) Neut % (Auto) Lymph % (Auto) Bannock % (Auto) Eos % (Auto) Baso % [...] Signed: Zak Redding MD at 13:23 EDT , I have personally reviewed the patient's [...] Care Physician,No Primary Referrals: Adams Cartagena MD [[facility] Staff - Painter Foreman] - Activity Restrictions/Additional Instructions: Thank you for [...] your Primary Care Provider. Call [facility] ([phone]) or report to the closest Emergency Room. Call 911 if necessary. 03/08/23 1621 <Electronically signed by Chad Winkler DO> Cosigner Signature (if applicable): CC: No Primary Care Physician ~ Signed [facility] Work Phone: 1(830) 602-219505-14-2023 History of Present illness Narrative* Marylu Delaney APRN.BONNY - 03/08/2023 12:23 PM EDT Came in [...] wants to take himself. [facility] Ann [facility] February 19, 2023 9:03pm Note Date/Time February 19, 2023 7:0 6pm [facility] Medical Records Department [address] [place] [address] Emergency Department Summary 02/19/23 MR#: [id number] Acct: [id number] Name: CHANDANA RAYMUNDO Rep #:[id number] : 1995 27 From: [...] history of DVT/PE and no risk factors. PFSH PFSH Medical History Asthma attack Liver abscess Home [...] 78.7 H Lymph % (Auto) 12.2 L [place] % (Auto) 6.6 Eos % (Auto) 1.5 [...] Signed: Mark Giraldo MD at 18:36 EDT , Discharge Plan Triage Chief Complaint: Shortness [...] Referrals: Basilio Dietz DO [Med Staff - Painter Foreman] - 3-5 Days Care Physician,No Primary [Primary Care Provider] - Disposition Disposition: Home, Self Care What to do if you have Problems For any increased pain, shortness of breath, bleeding, nausea or vomiting, chestpain, or any unexpected problems, contact your Primary Care Provider. Call [facility] ([phone]) or report to the closest Emergency Room. Call 911 if necessary. 02/19/232102 <Electronically signed by Ryley Ann DO> Cosigner Signature (if applicable): CC: No Primary Care Physician ~ Signed [facility] Work Phone: Discharge summary Author Sung Maloney [facility] Note Date/Time April 21, 2025 11:0 6am [facility] Medical Records Department [address] [place] [address] Emergency Department Summary 04/21/25 MR#: [id number] Acct: [id number] Name: CHANDANA RAYMUNDO Rep #:[id number] : 1995 29 From: Sung Maloney MD PCP: Care Physician,No Primary Status :REG ER Location: ED HPI History of Present Illness Chief Complaint: Lower Extremity Injury Informant: patient and EMS Narrative Narrative: 29-year-old male presenting with severe right lower extremity pain that he woke up with 3 hours ago. No injury. No fevers or chills. He went to bed and it felt okay. Seems to be centered at his right ankle, but pain radiating up toward the knee. Cannot move the ankle due to pain hence calling EMS. States he has a history of gout that has had in his toes before. He denies any fevers or chills or recent illness or systemic symptoms. No history of DVT or PE. [facility] Medical History (Updated 04/21/25 @ 11:[address] Sung Maloney MD) Gout History of substance abuse Asthma Kidney disease Liver abscess Asthma attack Home Medications ?Medication ?Instructions ?Recorded ?Last Taken ?Type albuterol sulfate 90 mcg/actuation 2 puff inhalation Q 4H PRN PRN 03/30/25 Unknown Rx aerosol inhaler (Ventolin HFA) Wheezing ##1 amlodipine 10 mg tablet 10 mg PO DAILY #30 tabs 03/27 05/19 Unknown Rx hydrocodone-acetaminophen 5-325mg 1 tab PO Q4H PRN PRN Pain 2 days 04/21/25 Unknown Rx 5mg-325mg #10 TABLETS prednisone 10 mg tablet 10 mg PO UD #30 tabs 5 Unknown Rx Allergy/AdvReac Type Severity Reaction Status Date / Time amoxicillin Allergy Hives Verified 04/21/25 07:49 Penicillins Allergy Hives Verified 04/21/25 07:49 Surgical History Hx of appendectomy Social History household members: spouse, children and none housing: homeless current occupational status: employed and unemployed Smoking Status: Current every day smoker tobacco type: cigarettes ROS ROS ED Constitutional Constitutional ED: Denies chills or fever(s) Eyes Eyes: Denies change in vision or diplopia ENT ENT ED: Denies rhinorrhea or sore throat Cardiovascular Cardiovascular: Denies chest pain or palpitations Respiratory/Chest Respiratory/Chest: Denies cough or dyspnea Gastrointestinal Gastrointestinal: Denies abdominal pain, diarrhea, nausea or vomiting Genitourinary Genitourinary ED: Denies dysuria or hematuria Musculoskeletal Musculoskeletal: Reports extremity pain; Denies neck pain Integumentary Denies Abrasions, rash or wounds Neurologic Neurologic: Denies paresthesias or weakness Psychiatric Psychiatric: Reports anxiety; Denies suicidal thoughts EXAM Physical Exam Const Vital Signs: 04/21/25 07:49 04/21/25 10:44 04/21/25 10:44 Temperature 98.5 F 97.9 F Temperature Source Oral Pulse Rate 80 79 Respiratory Rate 16 16 Blood Pressure 211/100 H 186/109 H 186/109 H Blood Pressure Mean 137 134 134 Pulse Ox 100 97 Oxygen Delivery Method Room Air Positive well nourished and well developed Constitutional Narrative: In painful distress. General Appearance ED: well developed HEENT Reports moist mucous membranes normocephalic and atraumatic Eyes PERRL and EOMs intact bilaterally Neck full ROM and supple Resp normal respiratory effort and clear to auscultation bilaterally Cardio regular rate, regular rhythm and no murmurs GI non-tender and non-distended Auscultation: normoactive bowel sounds Palpation: soft Back/Spine normal ROM and normal to inspection General Back: other FROM Extremity Extremity Narrative: Refuses to move right ankle due to pain. Severe pain with attempting to passively range it. The ankle is mildly swollen, and just barely touching it reproduces severe pain. Less tender in the calf but the entire posterior aspectof the lower leg is tender, excluding the popliteal fossa. All compartments of the lower leg and thigh are soft and nondistended. There is no pedal edema above the ankle. The ankle is warm compared with the contralateral ankle. There is no erythema. Strong DP pulse 2+ bilaterally. Brisk cap refill bilaterally. No rash or lesions. Achilles intact by palpation. Foot and calcaneus nontender. Good range at the knee without pain there and no tenderness in the thigh. No palpable cords. Neuro oriented x3, no focal motor deficits and no sensory deficits noted Sensorium / Orientation: alert Motor Exam: strength 5/5 throughout Psych thought process normal Mood & Affect: anxious Skin no wounds Rashes: no rashes MDM MDM MDM Narrative Medical decision making narrative: I suspect this is gout. Spontaneous onset pain in the extremity it is focused at the joint and the ankle, but he has pain going up the calf which is very tender as well. My suspicion is that it is all ankle but I am also getting a venous scan of the veins to rule out DVT here. In the meantime we will give himToradol, morphine, and some colchicine to see if that helps his pain which is quite severe. Three-view x-ray of the right ankle is negative for my interpretation and according to the ultrasound vascular sonographer, the DVT scan is negative. These medications helped his pain significantly. He does have a significant leukocytosis, however his ESR is normal his CRP is just barely out of range elevated. He has a creatinine of 2.10, but looking at old labs, he was 1.84 couple years ago so that is not new. When I asked him about this, he states yes,I have had chronic kidney disease since I was young and my blood pressure is always high but when I asked him prior to giving him Toradol if he had any history of kidney problems he said no. He and I both agree, he probably told brittanyat accidentally because he was in a lot of pain. I did review his records prior to giving him Toradol and there is no documented history of chronic kidneydisease in his chart here at this hospital, but he did tell the nurse later who then placed it into his chart. His blood pressure is persistently elevated, andhe has no symptoms from that. His uric acid is 10.8, and in context this is allconsistent with gout. He can move the ankle little better but it still hurts todo so. I discussed the low possibility of septic arthritis given his inflammatory indicators but high white blood count, but am not able to rule it out without arthrocentesis. He adamantly refuses arthrocentesis. He is okay with attempting treatment for gout with prednisone, I gave him an initial dose here, he understands that if this is infection that that might make it worse andhe should come back immediately, but in the meantime we will give him an Carlos wrap crutches, steroid and analgesic prescriptions and advised him to follow-up or return if worse he is comfortable with that plan and understands risks. He states he does not have a doctor but he is planning on following up at the [facility]. I reinforced the importance of following up because of his blood pressure, his kidney issues as he is at risk of becoming a dialysis patient if he does not get this controlled, and in addition to all of this, whenhis gout flareup is better, he may benefit from preventative treatment that needs to be started later. Lab Data Attestation: I reviewed the patient's lab results. Labs: Laboratory Results - last 24 hr 04/21/25 08:50 WBC 18.5 H RBC 4.98 Hgb 16.3 Hct 46.1 MCV 92.6 MCH 32.7 H MCHC 35.4 RDW Std Deviation 41.1 RDW Coeff of Maryanne 12.0 Plt Count 237 MPV 10.0 Immature Gran % (Auto) 0.300 Neut % (Auto) 87.3 H Lymph % (Auto) 7.0 L [place] % (Auto) 5.0 Eos % (Auto) 0.2 Baso % (Auto) 0.2 Absolute Neuts (auto) 16.2 H Absolute Lymphs (auto) 1.30 Nucleated RBC % 0 ESR 5 Sodium 137 Potassium 4.1 Chloride 105 Carbon Dioxide 21.1 Anion Gap 12 BUN 18 Creatinine 2.10 H Estim Creat Clear Calc 72.09 Est GFR (MDRD) Non-Af 43 L BUN/Creatinine Ratio 8.4 L Glucose 104 H Uric Acid 10.8 H Calcium 9.1 C-React Prot Ext Range 4.76 H Radiography Diagnostic Testing: Clinical Impression(s) from Imaging Studies Ankle X-Ray 04/21/25 08:22 IMPRESSION: NEGATIVE ANKLE SERIES Reading Location: [facility] Discharge Plan Triage Chief Complaint: Lower Extremity Injury ED Provider: Sung Maloney Dx/Rx/DC Orders Clinical Impression: Gouty arthritis of right ankle, Chronic kidney disease (CKD), Accelerated hypertension Instructions: Eating to Prevent Gout, ED Gout Prescriptions: New hydrocodone-acetaminophen 5-325 mg tablet 1 tab PO Q4H PRN PRN (Reason: Pain) 2 Days Qty: 10 0RF prednisone 10 mg tablet 10 mg PO UD Qty: 30 0RF Rx Instructions: Take 4 tablets daily for 3 days, then 3 daily for 3 days, then 2 daily for 3 days, then 1 a day for 3 days amlodipine 10 mg tablet 10 mg PO DAILY Qty: 30 0RF No Action albuterol sulfate [Ventolin HFA] 90 mcg/actuation HFA aerosol inhaler 2 puff inhalation Q4H PRN PRN (Reason: Wheezing) Qty: 1 0RF Rx Instructions: dispense with spacer Primary Care Provider: Care Physician,No Primary [facility]errals[facility]Non-Staff[facility] - As soon as possible Activity Restrictions/Additional Instructions: If the steroids make your ankle worse or you develop a fever, stop them and return to the ER immediately. Print Language: Vietnamese Disposition Disposition: Home, Self Care What to do if you have Problems For any increased pain, shortness of breath, bleeding, nausea or vomiting, chestpain, or any unexpected problems, contact your Primary Care Provider. Call [facility] ([phone]) or report to the closest Emergency Room. Call 911 if necessary. 04/21/25 1106 <Electronically signed by Sung Maloney MD> Cosigner Signature (if applicable): CC: Irma Roque, ; No Primary Care Physician ~ Signed [facility] Work Phone: Evaluation noteNo assessment information available [facility] Work Phone: Evaluation note* Diagnosis Chest pain, unspecified type- Primary Bloody stool Blood in stool [facility]- Primary Hypertension, unspecified type [facility] Diagnosis Gouty arthritis of right great toe- Primary [facility] Additional Instructions Your blood pressure reading is elevated today. It is very important that you follow-up to have this rechecked. Even if you feel fine, you need to have your blood pressure checked and maybe managed.[facility] Work Phone: Hospital Discharge instructions Additional Instructions Thank you for trusting us with your care today! Please take Tylenol (2 pills, 650 mg), ibuprofen (2 pills, 400 mg) every 6 hours as needed for pain and fever control. Please return to the emergency department if your symptoms change or worsen. Please follow with your primary care physician for further outpatient evaluation and management.[facility] Work Phone: Hospital Discharge instructions Additional Instructions 1. 2 puffs of inhaler every 2-4 hours while awake for the next 3 to 5 days and every 4-6 hours for shortness of breath or wheezing 2. Because you smoke you may have a cough up to 1 month. 3. Your blood pressure readings are elevated. [facility]: Hospital Discharge instructions Additional Instructions Practice good hygiene, keep your skin clean and dry, use an antibacterial soap to wash when you shower. Follow-up with the clinic I referred you to if no improvement. Return for any worsening symptoms.[facility] Work Phone: Hospital Discharge instructionsAdditional Instructions If the steroids make your ankle worse or you develop a fever, stop them and return to the ER immediately.[facility] Work Phone: Summary Purpose Family History [...] No April 19, 2022 1:01pm Power of Train Driver No April 19 1:01pm Advance Directive Response Recorded Date/ Time Advance Directives No November 04, 2016 12:07am Living Will No February 19, 2023 5:49pm Power of Train Driver No February 19 5:49pm Advance Directive Response Recorded Date/ Time Advance Directives No November 04, 2016 12:07am Living Will No March 08, 2023 1 2:39pm Power of Train Driver No March 08, 2023 12:39pm Advance Directive Response Recorded Date/ Time Advance Directives No November 04, 2016 12:07am Living Will No May 25, 2023 11:19am Power of Train Driver No May 25 11:19am Advance Directive Response Recorded Date/ Time Advance Directives No November 03, 2016 11:07pm Living Will No October 12, 2 023 7:28pm Power of Train Driver No October 12, 2023 7:28pm Advance Directive Response Recorded Date/ Time Living Will No December 06, 2 025 3:56am Do you have a Healthcare Power of Train Driver? No December 06, 2024 3:56am Living Will No December 22, 2 025 3:13pm Do you have a Healthcare Power of Train Driver? No December 22, 2024 3:13pm Do you have a Healthcare Power of Train Driver? No March 30, 2025 1:08pm Advance Directives No November 04, 2016 12:07am Advance Directive Response Recorded Date/ Time Living Will No December 22, 2 025 3:13pm Do you have a Healthcare Power of Train Driver? No December 22, 2024 3:13pm Do you have a Healthcare Power of Train Driver? No April 16, 2025 6:09pm Do you have a Healthcare Power of Train Driver? No March 30, 2025 1:08pm Advance Directives No November 04, 2016 12:07am Advance Directive Response Recorded Date/ Time Living Will No December 22, 2 025 3:13pm Do you have a Healthcare Power of Train Driver? No December 22, 2024 3:13pm Do you have a Healthcare Power of Train Driver? No April 16, 2025 6:09pm Do you have a Healthcare Power of Train Driver? No April 21, 2025 7:54am Do you have a Healthcare Power of Train Driver? No March 30, 2025 1:08pm Advance Directives No November 04, 2016 12:07am Chief Complaint and Reason for Visit Chief Complaint GOUT Chief Complaint SOB Chief Complaint SOB CHEST PAIN Chief Complaint SOB CHEST PAIN FOOT PAIN Chief Complaint vomiting, dizziness Chief Complaint Admit Date ABDOMINAL PAIN December 06, 2024 2:37am L FOOT PAIN December 22, 2024 1:21pm SOB March 30, 2025 12:59 pm Chief Complaint Admit Date L FOOT PAIN December 22, 2024 1:21pm SOB March 30, 2025 12:59 pm RASH April 16, 2025 5:28 pm Chief Complaint Admit Date L FOOT PAIN December 22, 2024 1:21pm SOB March 30, 2025 12:59 pm RASH April 16, 2025 5:28 pm rt ankle April 21, 2025 7:47 am Additional Source Comments (unrecognized sect ion and content) No Status Records FoundNo Status Records FoundNo Status Records FoundNo Status Records FoundNo Status Records Found INFORMATION SOURCE (unrecogn ized section and content) DATE CREATED AUTHOR 04/16/2018 [facility] ([place]) DATE CREATED AUTHOR AUTHOR'S ORGANIZ ATION 08/01/2021 [facility] DATE CREATED AUTHOR AUTHOR'S ORGANIZ ATION 03/12/2024 [facility] DATE CREATED AUTHOR AUTHOR'S ORGANIZ ATION 11/05/2024 [facility] DATE CREATED AUTHOR AUTHOR'S ORGANIZ ATION 04/27/2025 [facility] Goals (unrecognized section and content) Goals may [...] 06, 2024 End: December 06, 2024 Dr. Chandana Huang , Attending Provider Active Start: December 06, 2024 End: December 06, 2024 Dr. Chandana Huang DO Emergency Provider Active Start: December [...] March 30, 2025 Dr. Cruz Duarte DO Referring Provider Active Start: March 30, 2025 End: March 30, 2025 Dr. Cruz Duarte DO Emergency Provider Active Start: March 30, 2025 End: March 30, 2025 Team Status: Inactive Member Role Status Dates No Primary Care Physician Primary Care Provider Active Start: March 30, 2025 End: March 30, 2025 Dr. Cruz Duarte DO Attending Provider Active Start: March 30, 2025 End: March 30, 2025 Dr. Cruz Duarte DO Referring Provider Active Start: March 30, 2025 End: March 30, 2025 Dr. Cruz Duarte DO Emergency Provider Active Start: March 30, 2025 End: March 30, 2025 Team Status: Inactive Member Role Status Dates No Primary Care Physician Primary Care Provider Active Start: April 16, 2025 End: April 16, 2025 Dr. Valeriy Mercer MD Emergency Provider Active Sta rt: April 16, 2025 End: April 16, 2025 Team Status: Active Member Role/Relationship Status Dates No Primary Care Physician Primary Care Provider Active Team Status: Inactive Member Role/Relationship Status Dates No Primary Care Physician Primary [...] December 22, 2024 Team Status: Inactive Member Role/Relationship Status Dates No Primary Care Physician Primary Care Provider Active Start: March 30, 2025 End: March 30, 2025 Dr. Cruz Duarte DO Attending Provider Active Start: March 30, 2025 End: March 30, 2025 Dr. Cruz Duarte DO Referring Provider Active Start: March 30, 2025 End: March 30, 2025 Dr. Cruz Duarte DO Emergency Provider Active Start: March 30, 2025 End: March 30, 2025 Team Status: Inactive Member Role/Relationship Status Dates No Primary Care Physician Primary Care Provider Active Start: April 16, 2025 End: April 16, 2025 Dr. Valeriy Mercer MD Attending Provider Active Sta rt: April 16, 2025 End: April 16, 2025 Dr. Valeriy Mercer MD Emergency Provider Active Sta rt: April 16, 2025 End: April 16, 2025 Team Status: Inactive Member Role/Relationship Status Dates No Primary Care Physician Primary Care Provider Active Start: April 21, 2025 End: April 21, 2025 Dr. Sung Maloney MD Emergency Provider Active Start: April 21, 2025 End: April 21, 2025 Source Comments (unrecognize d section and content) In the event this informatio n is protected by the Federal Confidentiality of Alcohol and Drug Abuse Patient Records regulations: The Federal rules restrict any use of the information to criminally investigate or prosecute any alcohol or drug abuse patient.[facility] the event this information is protected by the Federal Confidentiality of Alcohol and Drug Abuse Patient Records regulations: The Federal rules restrict any use of the information to criminally investigate or prosecute any alcohol or drug abuse patient.[facility] the event this information is protected by the Federal Confidentiality of Alcohol and Drug Abuse Patient Records regulations: The Federal rules restrict any use of the information to criminally investigate or prosecute any alcohol or drug abuse patient.[facility] Reason for Visit (unrecogniz ed section [...] Procedures EST SAME DAY [facility] [address] [place] [address] Referral ID Status Reason Start Date Expiration Date Visits Requested Visits Authorized [id number] Pending Review Financial Clearance Required - Self [...] BE BASED ON THE PRIMARY CLINICAL RECORDS. [employer] [facility]. provides no warranty or guarantee of the accuracy or completeness of information in this document.
--- OUTSIDE RECORDS SUMMARY | 2025-04-28 14:47 | XMS RPT_ITS | CCD ---
Author Organization [facility] CliniSyil Care Team Providers Care Senior Qa Analyst Name Role Phone PHYSICIAN, NONE Unavailable Unavailable JJ, VU Unavailable Unavailable [facility] Unavailable Unavai lable BENOIT MCKEON Admitting Unavailable AA NO PCP, NO PCP Primary Care Unavailable ANDBENOIT DO Attending Unavailable VALERYI MERCER E Attending Unavailable VALERIY MERCER Admitting [...] Penicillins; Translations: [PENICILLINS] Drug allergy (disorder) 08-19-2015 [facility] (8 sources) Amoxicillin Drug Allergy 04-19-[address] [facility] (7 sources) Penicillins Allergy to substance 02-19-[address] 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) use of systemic steroids; Translations: [SENIOR CARE USE OF SYSTEMIC STEROIDS] Onset: 07-31-2021 Episodic [...] Auto (Unsp spec) [#/Vol] 1.30 10*3/uL 0.83-4.51 [facility] Absolute neutrophil countOrd ered By: Sung Maloney on 04-21-2025 Neutrophils (Bld) [#/Vol] 16.2 10*3/uL High 2.0-7.7 [facility] Anion gap in Serum or Plasma Ordered By: Sung Maloney on 04-21-2025 Anion gap [Moles/Vol] 12 mmol/L 03-09 [facility] Ankle min 3 Viewson 04-21-20 Ankle min 3 Views [facility] Imaging Services [address] [place], [place] [address] Ankle min 3 Views MR#: [id number] Acct: [id number] Name: CHANDANA RAYMUNDO Rep #: [id number] : 1995 M 29 From: Fawad dixon MD PCP: Care Physician,No Primary Status: REG ER Study: Ankle min 3 Views Date of Exam: 04/21/25 Exam# [id number] Ordering Dr: Sung Maloney MD PROCEDURE: ANKLE MIN 3 VIEWS 04/21/2025 REASON FOR EXAM: PAIN TECHNIQUE: ANKLE MIN 3 VIEWS COMPARISON: None FINDINGS: Bones: No fracture seen. Joints: Normal alignment. Mortise appears intact. No effusion. Soft tissues: Soft tissues are unremarkable. Other: RAD/Ankle min 3 Views IMPRESSION: NEGATIVE ANKLE SERIES Reading Location: [id number] CC: Dr. Sung Maloney MD; No Primary Care Physician Protector Plate Attacher: Signed Normal [facility] Automated lymphocyte count a s percentage of total leukocytesOrdered By: Sung Maloney on 04-21-2025 Lymphocytes/100 WBC Auto (Unsp spec) 7.0 % Low 19-41 [facility] BUN/creatinine ratioOrdered By: Sung Maloney on 04-21-2025 Urea nitrogen/Creatinine [Mass ratio] 8.4 mg/mg Low 10-20 [facility] Basic Metabolic Profile (BMP )on 04-21-2025 BUN/CRE 8.4 RATIO Low 10-20 [facility] Comment on above: Performed By: #### L 501.1400, L501.6710, L100.0100, L500.2500, L101.9900 #### [facility] [address] [place], [address] Calcium [Mass/Vol] 9.1 mg/dL Normal 7.6-11.0 [facility] Comment on above: Performed By: #### L 501.1400, L501.6710, L100.0100, L500.2500, L101.9900 #### [facility] [address] [place], [address] Chloride [Moles/Vol] 105 mmol/L Normal 98-108 [facility] Comment on above: Performed By: #### L 501.1400, L501.6710, L100.0100, L500.2500, L101.9900 #### [facility] [address] [place], [address] CO2 [Moles/Vol] 21.1 mmol/L Normal 21.0-32.0 [facility] Comment on above: Performed By: #### L 501.1400, L501.6710, L100.0100, L500.2500, L101.9900 #### [facility] [address] [place], [address] Creatinine [Mass/Vol] 2.10 mg/dL High 0.70-1.20 [facility] Comment on above: Performed By: #### L 501.1400, L501.6710, L100.0100, L500.2500, L101.9900 #### [facility] [address] [place], [address] ECRCL 72.09 ml/min Normal 50-250 [facility] Comment on above: Performed By: #### L 501.1400, L501.6710, L100.0100, L500.2500, L101.9900 #### [facility] [address] [place], [address] GAP 12 Normal 5-15 [facility] Comment on above: Performed By: #### L 501.1400, L501.6710, L100.0100, L500.2500, L101.9900 #### [facility] [address] [place], [address] GFR/1.73 sq M.predicted among non-blacks MDRD (S/P/Bld) [Vol rate/Area] 43 mL/min/{1.73_m2} Low >60 [facility] Comment on above: Result Comment: mL/m in/1.73m2 CKD-EPI Creatinine Equation (2020) Performed By: #### L 501.1400, L501.6710, L100.0100, L500.2500, L101.9900 #### [facility] [address] [place], [address] Glucose [Mass/Vol] 104 mg/dL High 70-99 [facility] Comment on above: Performed By: #### L 501.1400, L501.6710, L100.0100, L500.2500, L101.9900 #### [facility] [address] [place], [address] Potassium [Moles/Vol] 4.1 mmol/L Normal 3.3-5.1 [facility] Comment on above: Result Comment: Hemo lysis present, Results??could be affected. ?? Performed By: #### L 501.1400, L501.6710, L100.0100, L500.2500, L101.9900 #### [facility] [address] [place], [address] Sodium [Moles/Vol] 137 mmol/L Normal 133-145 [facility] Comment on above: Performed By: #### L 501.1400, L501.6710, L100.0100, L500.2500, L101.9900 #### [facility] [address] [place], [address] Urea nitrogen [Mass/Vol] 18 mg/dL Normal 4-19 [facility] Comment on above: Performed By: #### L 501.1400, L501.6710, L100.0100, L500.2500, L101.9900 #### [facility] [address] [place], [address] Basophil percentageOrdered B y: Sung Maloney on 04-21-2025 Basophils/100 WBC (Bld) 0.2 % 0-1 [facility] CBC W/Diff, Automatedon 03-27 Absolute Lymph 1.30 X10 3/uL Normal 0.83-4.51 [facility] Comment on above: Performed By: #### L 501.1400, L501.6710, L100.0100, L500.2500, L101.9900 #### [facility] [address] [place], [address] Absolute Neut 16.2 X10 3/uL High 2.0-7.7 [facility] Comment on above: Performed By: #### L 501.1400, L501.6710, L100.0100, L500.2500, L101.9900 #### [facility] [address] [place], [address] Basophils/100 WBC (Bld) 0.2 % Normal 0-1 [facility] Comment on above: Performed By: #### L 501.1400, L501.6710, L100.0100, L500.2500, L101.9900 #### [facility] [address] [place], [address] Eosinophils/100 WBC (Bld) 0.2 % Normal 0-5 [facility] Comment on above: Performed By: #### L 501.1400, L501.6710, L100.0100, L500.2500, L101.9900 #### [facility] [address] [place], [address] Erythrocyte distribution width (RBC) [Ratio] 12.0 % Normal 11.6-14.6 [facility] Comment on above: Performed By: #### L 501.1400, L501.6710, L100.0100, L500.2500, L101.9900 #### [facility] [address] [place], [address] Hematocrit (Bld) [Volume fraction] 46.1 % Normal 40-54 [facility] Comment on above: Performed By: #### L 501.1400, L501.6710, L100.0100, L500.2500, L101.9900 #### [facility] [address] [place], [address] Hemoglobin (Bld) [Mass/Vol] 16.3 g/dL Normal 13.0-16.5 [facility] Comment on above: Performed By: #### L 501.1400, L501.6710, L100.0100, L500.2500, L101.9900 #### [facility] [address] [place], [address] IG% 0.300 Normal 0.0-0.9 [facility] Comment on above: Result Comment: IG% - Immature Granulocytes (promyelocytes, myelocytes and metamyelocytes) > 1% indicates that a LEFT SHIFT is Present. Performed By: #### L 501.1400, L501.6710, L100.0100, L500.2500, L101.9900 #### [facility] [address] [place], [address] Lymphocytes/100 WBC (Bld) 7.0 % Low 19-41 [facility] Comment on above: Performed By: #### L 501.1400, L501.6710, L100.0100, L500.2500, L101.9900 #### [facility] [address] [place], [address] MCH (RBC) [Entitic mass] 32.7 pg High 27.0-32.0 [facility] Comment on above: Performed By: #### L 501.1400, L501.6710, L100.0100, L500.2500, L101.9900 #### [facility] [address] [place], [address] MCHC (RBC) [Mass/Vol] 35.4 g/dL Normal 32-36 [facility] Comment on above: Performed By: #### L 501.1400, L501.6710, L100.0100, L500.2500, L101.9900 #### [facility] [address] [place], [address] MCV (RBC) [Entitic vol] 92.6 fL Normal 80-94 [facility] Comment on above: Performed By: #### L 501.1400, L501.6710, L100.0100, L500.2500, L101.9900 #### [facility] [address] [place], [address] Monocytes/100 WBC (Bld) 5.0 % Normal 0-10 [facility] Comment on above: Performed By: #### L 501.1400, L501.6710, L100.0100, L500.2500, L101.9900 #### [facility] [address] [place], [address] Neutrophils/100 WBC (Bld) 87.3 % High 47-70 [facility] Comment on above: Performed By: #### L 501.1400, L501.6710, L100.0100, L500.2500, L101.9900 #### [facility] [address] [place], [address] Nucleated RBC (Bld) [#/Vol] 0 10*3/uL Normal 0-5 [facility] Comment on above: Performed By: #### L 501.1400, L501.6710, L100.0100, L500.2500, L101.9900 #### [facility] [address] [place], [address] Platelet mean volume (Bld) [Entitic vol] 10.0 fL Normal 6.2-12.0 [facility] Comment on above: Performed By: #### L 501.1400, L501.6710, L100.0100, L500.2500, L101.9900 #### [facility] [address] [place], [address] Platelets (Bld) [#/Vol] 237 10*3/uL Normal 150-450 [facility] Comment on above: Performed By: #### L 501.1400, L501.6710, L100.0100, L500.2500, L101.9900 #### [facility] [address] [place], [address] RBC (Bld) [#/Vol] 4.98 10*6/uL Normal 4.6-6.2 [facility] Comment on above: Performed By: #### L 501.1400, L501.6710, L100.0100, L500.2500, L101.9900 #### [facility] [address] [place], [address] RDW SD 41.1 fl Normal 35.1-43.9 [facility] Comment on above: Performed By: #### L 501.1400, L501.6710, L100.0100, L500.2500, L101.9900 #### [facility] [address] [place], [address] WBC (Bld) [#/Vol] 18.5 10*3/uL High 4.4-11.0 [facility] Comment on above: Performed By: #### L 501.1400, L501.6710, L100.0100, L500.2500, L101.9900 #### [facility] [address] [place], [address] CRPon 04-21-2025 C-REACTIVE PROT 4.76 mg/L High 0.0-3.0 [facility] Comment on above: Performed By: #### L 501.1400, L501.6710, L100.0100, L500.2500, L101.9900 ####[facility] [address] [place], [address] Carbon dioxide, total [Moles /volume] in Central venous bloodOrdered By: Sung Maloney on 04-21-2025 CO2 [Moles/Vol] 21.1 mmol/L 21.0-32.0 [facility] Chloride assayOrdered By: Angy Maloney on 04-21-2025 Chloride [Moles/Vol] 105 mmol/L 98-108 [facility] Emergency Department Summary on 04-21-2025 Emergency Department Summary [facility] Medical Records Department [address] [place] [address] Emergency Department Summary 04/21/25 MR#: [id number] Acct: [id number] Name: CHANDANA RAYMUNDO Rep #: [id number] : 1995 29 From: Sung Maloney MD [...] symptoms. No history of DVT or PE. [facility] Medical History (Updated 04/21/25 @ 11:03 [...] it i (more content not included)... Normal [facility] Eosinophil percentageOrdered By: Sung Maloney on 04-21-2025 Eosinophils/100 WBC (Bld) 0.2 % 0-5 [facility] Erythrocyte Sed Rateon 04-21 SED RATE 5 mm/hr Normal 0-20 [facility] Comment on above: Performed By: #### L 501.1400, L501.6710, L100.0100, L500.2500, L101.9900 #### [facility] [address] [place], [address] Erythrocyte distribution wid th ratioOrdered By: Sung Maloney on 04-21-2025 Erythrocyte distribution width (RBC) [Ratio] 12.0 % 11.6-14.6 [facility] Erythrocyte distribution wid th standard deviationOrdered By: Sung Maloney on 04-21-2025 Erythrocyte distribution width (RBC) [Ratio] 41.1 fl 35.1-43.9 [facility] Erythrocyte sedimentation ra teOrdered By: Sung Maloney on 04-21-2025 ESR (Bld) [Velocity] 5 mm/h 0-20 [facility] Glomerular filtration rate ( GFR) estimation/1.73 sq m using serum, plasma, or whole bOrdered By: Sung Maloney on 04-21-2025 GFR/1.73 sq M.predicted among non-blacks MDRD (S/P/Bld) [Vol rate/Area] 43 mL/min/{1.73_m2} Low >60 [facility] Comment on above: mL/min/1.73m2 CKD-EP I Creatinine Equation (2020) Hematocrit Auto (Bld) [Volum e fraction]Ordered By: Sung Maloney on 04-21-2025 Hematocrit (Bld) [Volume fraction] 46.1 % 40-54 [facility] Hemoglobin measurementOrdere d By: Sung Maloney on 04-21-2025 Hemoglobin (Bld) [Mass/Vol] 16.3 g/dL 13.0-16.5 [facility] Immature granulocytes/100 WB C Auto (Bld)Ordered By: Sung Maloney 04-21-2025 Immature granulocytes/100 WBC (Bld) 0.300 % 0.0-0.9 [facility] Comment on above: IG% - Immature Granu locytes (promyelocytes, myelocytes and metamyelocytes) > 1% indicates that a LEFT SHIFT is Present. MCV (mean corpuscular volume ) determinationOrdered By: Sung Maloney on 04-21-2025 MCV (RBC) [Entitic vol] 92.6 fL 80-94 [facility] Mean corpuscular hemoglobin (MCH) determinationOrdered By: Sung Maloney 04-21-2025 MCH (RBC) [Entitic mass] 32.7 pg High 27.0-32.0 [facility] Mean corpuscular hemoglobin concentration (MCHC) determinationOrdered By: Sung Maloney on 04-21-2025 MCHC (RBC) [Mass/Vol] 35.4 g/dL 32-36 [facility] Mean platelet volume determi nationOrdered By: Sung Maloney on 04-21-2025 Platelet mean volume (Bld) [Entitic vol] 10.0 fL 6.2-12.0 [facility] Monocyte percentageOrdered B y: Sung Maloney on 04-21-2025 Monocytes/100 WBC (Bld) 5.0 % 0-10 [facility] Neutrophil percentageOrdered By: Sung Maloney on 04-21-2025 Neutrophils/100 WBC (Bld) 87.3 % High 47-70 [facility] Nucleated red blood cell per centageOrdered By: Sung Maloney on 04-21-2025 Nucleated RBC/100 WBC (Bld) [Ratio] 0 % 0-5 [facility] Platelet countOrdered By: Angy Maloney on 04-21-2025 Platelets (Bld) [#/Vol] 237 10*3/uL 150-450 [facility] Potassium measurement (mass/ volume)Ordered By: Sung Maloney on 04-21-2025 Potassium (Unsp spec) [Mass/Vol] 4.1 mmol/L 3.3-5.1 [facility] Comment on above: Hemolysis present, R esults could be affected. RBC Auto (Bld) [#/Vol]Ordere d By: Sung Maloney on 04-21-2025 RBC (Bld) [#/Vol] 4.98 10*6/uL 4.6-6.2 [facility] Serum creatinine measurement (mass/volume)Ordered By: Sung Maloney on 04-21-2025 Creatinine [Mass/Vol] 2.10 mg/dL High 0.70-1.20 [facility] Serum glucose measurement (m ass/volume)Ordered By: Sung Maloney on 04-21-2025 Glucose [Mass/Vol] 104 mg/dL High 70-99 [facility] Serum or plasma C reactive p rotein measurement (mass/volume)Ordered By: Sung Maloney on 04-21-2025 CRP [Mass/Vol] 4.76 mg/L High 0.0-3.0 [facility] Serum or plasma calcium khanh urement (mass/volume)Ordered By: Sung Maloney on 04-21-2025 Calcium [Mass/Vol] 9.1 mg/dL 7.6-11.0 [facility] Serum or plasma urea nitroge n measurement (mass/volume)Ordered By: Sung Maloney on 04-21-2025 Urea nitrogen [Mass/Vol] 18 mg/dL 4-19 [facility] Serum or plasma uric acid me asurement (mass/volume)Ordered By: Sung Maloney on 04-21-2025 Urate [Mass/Vol] 10.8 mg/dL High 3.5-7.2 [facility] Comment on above: The drugs N-Acetylcy steine and Metamizole may falsely depress this assay. Sodium levelOrdered By: Asim Maloney on 04-21-2025 Sodium [Moles/Vol] 137 mmol/L 133-145 [facility] Uric Acidon 04-21-2025 URIC 10.8 mg/dL High 3.5-7.2 [facility] Comment on above: Result Comment: The drugs N-Acetylcysteine and Metamizole may falsely depress this assay. Performed By: #### L 501.1400, L501.6710, L100.0100, L500.2500, L101.9900 ####[facility] [address] [place], [address] Venous Duplex US, Unilateral on 04-21-2025 Venous Duplex US, Unilateral [facility] [address] [place] [address] Venous Duplex US, Unilateral 04/21/25 0838 MR#: [id number] Acct: [id number] Name: CHANDANA RAYMUNDO Rep #: [id number] : 1995 29 From: Keith Nava MD [...] Physician Date Dictated: 04/21/25837 Date Transcribed: 04/21/251920 Protector Plate Attacher: Signed Normal [facility] White blood cell (WBC) count Ordered By: Sung Maloney on 04-21-2025 WBC (Bld) [#/Vol] 18.5 10*3/uL High 4.4-11.0 [facility] Emergency Department Summary on 04-16-2025 Emergency Department Summary [facility] Medical Records Department [address] [place] [address] Emergency Department Summary 04/16/25 MR#: [id number] Acct: [id number] Name: CHANDANA RAYMUNDO Rep #: [id number] : 1995 29 From: Olesya FERNÁNDEZ PCP: [...] He reports that he is healthy otherwise. [facility] Medical History Kidney disease Liver abscess [...] allergy. Encouraged good hygiene with antibacterial soap. workers compensation legal secretary did come and give him resources on a PCP referral and prescription assistance given he does not have insurance. Return instructions were discussed and patient discharged home in stable condition. MDM MDM Narrative Medica (more content not included)... Normal [facility] Chest 1 View (Portable)on Chest 1 View (Portable) [facility] Imaging Services [address] [place] [address] Chest 1 View (Portable) MR#: [id number] Acct: [id number] Name: RANDYGUERREROCHANDANA TORRES Rep #: [id number] : 1995 M 29 From: Tha Dial MD PCP: Care Physician,No Primary Status: REG ER Study: Chest 1 View (Portable) Date of Exam: 03/30/25 Exam# [id number] Ordering Dr: Cruz Duarte DO PROCEDURE: CHEST [...] 1. No active cardiopulmonary disease. Reading Location: [place] [address] CC: Dr. Cruz Duarte DO; No Primary Care Physician Protector Plate Attacher: Signed Normal [facility] Emergency Department Summary on 03-30-2025 Emergency Department Summary [facility] Medical Records Department [address] [place] [address] Emergency Department Summary 03/30/25 MR#: [id number] Acct: [id number] Name: CHANDANA RAYMUNDO Rep #: [id number] : 1995 29 From: Cruz Duarte DO [...] no wou (more content not included)... Normal [facility] Emergency Department Summary on 12-22-2024 Emergency Department Summary [facility] Medical Records Department [address] [place] [address] Emergency Department Summary 12/22/24 MR#: [id number] Acct: [id number] Name: CHANDANA RAYMUNDO Rep #: [id number] : 1995 29 From: Ryan Crump MD [...] sheet on his foot when he sleeps. [facility] Medical History Kidney disease Liver abscess [...] can be discharged to follow-up with the [facility] clinic as he states he is currently homeless and does not have health insurance. Return instructions to the emergency department were reviewed. Disposition is discharged home in stable condition. History Record Review Discussion w/independent historian: Patient Additional record(s) reviewed:: Prior ED visit Radiography Diagnostic Testing: Clinical Impression(s) from Imaging Studies Foot X-Ray 12/22/24 13:30 IMPRESSION: Unremarkable examination. Reading Location: [id number] Discharge Plan Triage Chief Complaint: Lower Extremity [...] mg tablet, (more content not included)... Normal [facility] Foot min 3 Viewson Foot min 3 Views [facility] Imaging Services [address] [place] [address] Foot min 3 Views MR#: [id number] Acct: [id number] Name: CHANDANA RAYMUNDO Rep #: [id number] : 1995 M 29 From: Fawad dixon MD PCP: Care Physician,No Primary Status: PRE ER Study: Foot min 3 Views Date of Exam: 12/22/24 Exam# [id number] Ordering Dr: Provider,Ed P. PROCEDURE: FOOT MIN 3 VIEWS REASON FOR EXAM: Pain. History of gout. TECHNIQUE: Three views of the left foot were obtained. COMPARISON: Comparison is made with prior study dated May 25, 2023 FINDINGS: LEFT FOOT: No visible fracture. No suspicious bone lesion. Normal alignment. Soft tissues are unremarkable. RAD/Foot min 3 Views IMPRESSION: Unremarkable examination. Reading Location: [id number] CC: ED PHYSICIAN PROVIDER; No Primary Care Physician Protector Plate Attacher: Signed Normal [facility] Emergency Department Summary on 12-06-2024 Emergency Department Summary [facility] Medical Records Department [address] [place] [address] Emergency Department Summary 12/06/24 MR#: [id number] Acct: [id number] Name: CHANDANA RAYMUNDO Rep #: [id number] : 1995 29 From: Chandana Huang DO [...] last night they went to dinner to [employer] and felt that the chicken was undercooked but states that he ate a few bites of this before realizing and does not know if he has food poisoning. [facility] Medical History Kidney disease Liver abscess [...] follow commands knew that he was at [facility] year is 2024 Skin: Warm, dry, [...] (Reason: nausea (more content not included)... Normal [facility] Influenza virus A and B and SARS-CoV-2 (COVID-19) and Respiratory syncytial virus RNAOrdered By: Chandana Huang on 12-06-2024 SARS-CoV-2 (COVID-19) RNA HUE+probe Ql (Unsp spec) [facility] M100.678on 12-06-2024 M100.678 Pending SARS-CoV-2 (COVID 19) Negative INFLUENZA A Negative INFLUENZA B Negative RSV PCR Negative Normal [facility] Comment on above: Performed By: #### M 100.678 #### [facility] [place], [address] ALCOHOLon 10-29-2024 Ethanol [Mass/Vol] mg/dL Normal [facility] Comment on above: Result Comment: Note : Alcohol values performed at [facility] are performed on serum or plasma and reported in mg/dl, which is different then the state reporting units of g/dl which is performed on whole blood. Result reporting units are based on test methodology and are not interchangable. Performed By: #### 1 13868, [id number], 597153, 258288 #### [facility] [address] [place], [place] [address] Hr Recruiter: Junior Little MD AUTO DIFFon 10-29-2024 Baso Count 0.10 x1000 Normal 0.00-0.20 [facility] Comment on above: Performed By: #### 1 01007, [id number], 575648, 096486 #### [facility] [address] [place], [place] [address] Hr Recruiter: Junior Little MD Basos % 1.2 % [facility] Comment on above: Performed By: #### 1 95828, 8754511, 932664, 108701 #### [facility] [address] [place], [place] [address] Hr Recruiter: Junior Little MD Eos Count 0.20 x1000 Normal 0.00-0.50 [facility] Comment on above: Performed By: #### 1 54358, [id number], 175555, 780510 #### [facility] [address] [place] [address] Hr Recruiter: Junior Little MD Eosinophils/100 WBC (Bld) 1.5 % Normal [facility] Comment on above: Performed By: #### 1 90967, 4885526, 754118, 044592 #### [facility] [address] [place] [address] Hr Recruiter: Junior Little MD Lymph Count 2.20 x1000 Normal 1.20-4.80 [facility] Comment on above: Performed By: #### 1 66465, [id number], 830518, 512950 #### [facility] [address] [place] [address] Hr Recruiter: Junior Little MD Lymphocytes/100 WBC (Bld) 18.8 % Normal [facility] Comment on above: Performed By: #### 1 28912, [id number], 104415, 853862 #### [facility] [facility] [address] [place] [address] 75465 Hr Recruiter: Junior Little MD [place] Count 0.60 x1000 Normal 0.10-1.00 [facility] Comment on above: Performed By: #### 1 88584, [id number], 741718, 724462 #### [facility] [address] [place] [address] 49738 Hr Recruiter: Junior Little MD Monocytes/100 WBC (Bld) 4.7 % Normal [facility] Comment on above: Performed By: #### 1 64206, 9805682, 597812, 288324 #### [facility] [address] [place] [address] 23846 Hr Recruiter: Junior Little MD Neutrophil Count (ANC) 8.80 x1000 Normal 1.40-8.80 [facility] Comment on above: Performed By: #### 1 09557, 0727232, 541692, 107139 #### [facility] [address] [place] [address] 78878 Hr Recruiter: Junior Little MD Neutrophils/100 WBC (Bld) 73.8 % Normal [facility] Comment on above: Performed By: #### 1 90760, 8212277, 679757, 080963 #### [facility] [address] [place] [address] Hr Recruiter: MD Jack Andres 10-29-2024 GFR Estimated 40 Normal [facility] Comment on above: Result Comment: The GFR is calculated and is Age, Sex, and Race adjusted. Performed By: #### 1 40371, 7621832, 848719, 629584 #### [facility] [address] [place] [address] 18631 Hr Recruiter: Junior Little MD Albumin [Mass/Vol] 3.0 g/dL Low 3.4-5.0 [facility] Comment on above: Performed By: #### 1 09493, 0860224, 724753, 815914 #### [facility] [address] [place] [address] 66308 Hr Recruiter: Junior Little MD Albumin/Globulin [Mass ratio] 0.7 {ratio} Normal [facility] Comment on above: Performed By: #### 1 60821, 9050331, 736422, 368837 #### [facility] [address] [place] [address] 80828 Hr Recruiter: Junior Little MD Alk Phos 137 unit/L High 45-117 [facility] Comment on above: Performed By: #### 1 14873, 8681016, 279944, 203802 #### [facility] [address] [place] [address] 41655 Hr Recruiter: Junior Little MD Bilirubin [Mass/Vol] 0.30 mg/dL Normal 0.30-1.20 [facility] Comment on above: Result Comment: Use of this assay is not recommended for patients undergoing treatment with eltrombopag due to the potential for falsely elevated results. Performed By: #### 1 92394, 9401411, 678698, 310931 #### [facility] [address] [place] [address] 53655 Hr Recruiter: Junior Little MD Calcium [Mass/Vol] 8.8 mg/dL Normal 8.5-10.5 [facility] Comment on above: Performed By: #### 1 54787, 0837103, 216819, 948543 #### [facility] [address] [place] [address] 96274 Hr Recruiter: Junior Little MD Chloride [Moles/Vol] 106 mmol/L Normal 100-109 [facility] Comment on above: Performed By: #### 1 89405, 2466061, 198932, 923899 #### [facility] [address] [place] [address] 74060 Hr Recruiter: Junior Little MD CO2 [Moles/Vol] 26.5 mmol/L Normal 21.0-32.0 [facility] Comment on above: Performed By: #### 1 87059, 2706884, 630453, 735244 #### [facility] [address] [place] [address] 25475 Hr Recruiter: Junior Little MD Creatinine [Mass/Vol] 2.0 mg/dL High 0.7-1.3 [facility] Comment on above: Performed By: #### 1 25786, 8372316, 219445, 442213 #### [facility] [address] [place] [address] 15846 Hr Recruiter: Junior Little MD Globulin (S) [Mass/Vol] 4.1 g/dL Normal [facility] Comment on above: Performed By: #### 1 15642, 8092167, 614848, 625396 #### [facility] [address] [place] [address] 96927 Hr Recruiter: Junior Little MD Glucose [Mass/Vol] 168 mg/dL High 72-100 [facility] Comment on above: Result Comment: Radha puncture should occur prior to sulfasalazine administration due to the potential for falsely depressed results. Venipuncture should occur prior to sulfapyridine administration due to the potential falsely elevated results. Baseline assay values before administration of sulfasalazine and sulfapyridine therapy would not be affected. Performed By: #### 1 33618, 7784252, 621468, 650835 #### [facility] [address] [place] [address] 67732 Hr Recruiter: Junior Little MD GOT 15 unit/L Normal 15-37 [facility] Comment on above: Result Comment: Radha puncture should occur prior to sulfasalazine administration due to the potential for falsely depressed results. Baseline assay values before administration of sulfasalazine and sulfapyridine therapy would not be affected. Performed By: #### 1 97507, 4569982, 109613, 745877 #### [facility] [address] [place] [address] 34157 Hr Recruiter: Junior Little MD GPT 25 unit/L Normal 16-63 [facility] Comment on above: Result Comment: Radha puncture should occur prior to sulfasalazine administration due to the potential for falsely depressed results. Baseline assay values before administration of sulfasalazine and sulfapyridine therapy would not be affected. Performed By: #### 1 63075, 5627757, 412649, 319918 #### [facility] [address] [place] [address] 85455 Hr Recruiter: Junior Little MD Osmolality [Osmolality] 293 mosm/kg Normal 275-295 [facility] Comment on above: Performed By: #### 1 96833, 7592290, 773111, 063442 #### [facility] [address] [place], [place] [address] Hr Recruiter: Junior Little MD Potassium [Moles/Vol] 4.0 mmol/L Normal 3.5-5.1 [facility] Comment on above: Performed By: #### 1 47811, 6544074, 336711, 690682 #### [facility] [address] [place] [address] 93337 Hr Recruiter: Junior Little MD Protein [Mass/Vol] 7.1 g/dL Normal 6.0-8.5 [facility] Comment on above: Performed By: #### 1 42561, 8316815, 849743, 267823 #### [facility] [address] [place] [address] Hr Recruiter: Junior Little MD Sodium [Moles/Vol] 144 mmol/L Normal 135-145 [facility] Comment on above: Performed By: #### 1 54235, 2671077, 645649, 090149 #### [facility] [address] [place] [address] 43448 Hr Recruiter: Junior Little MD Urea nitrogen [Mass/Vol] 19 mg/dL Normal 10-20 [facility] Comment on above: Performed By: #### 1 80954, 8555861, 404183, 961923 #### [facility] [address] [place] [address] 33777 Hr Recruiter: Junior Little MD Urea nitrogen/Creatinine [Mass ratio] 9.5 mg/mg Normal [facility] Comment on above: Performed By: #### 1 65615, 0451221, 561226, 522792 #### [facility] [address] [place] [address] 72394 Hr Recruiter: Junior Little MD COVID-19 Molecular BREDon SARS-CoV-2 (COVID-19) RNA HUE+probe Ql (Unsp spec) Negative Normal Negative [facility] Comment on above: Result Comment: This [...] diagnosis. This testing was performed in the [facility] laboratory located at [place] [address]] Performed By: #### C [id number] #### [facility] [address] [place] [address] 54127 Hr Recruiter: Junior Little MD ED Data CLEANING ATTENDANT - Texton 025 ED Data CLEANING ATTENDANT - Text ED Data CLEANING ATTENDANT Entered On: 10/29/2024 17:13 EST Performed On: 10/29/2024 17:10 EST by Jeet Weinberg RN ED General Intake Information Willard Coma : Document Willard Coma Scale Problem History : Document Problem [...] Best Motor Response : Obeys simple commands Willard Coma Score (Ref) : 15 Jeet Weinberg RN - 10/29/2024 17:10 EST Problem History (As Of: 10/29/2024 17:13:44 EST) Problems(Active) Knowledge deficit (SNOMED CT :2753316163 ) Name of Problem: Knowledge deficit ; Recorder: SYSTEM; Confirmation: Confirmed ; Classification: Nursing ; Code: 9531517898 ; Last Updated: 12/06/2013 18:01 EST ; [...] PNED ; Probability: 0 ; Diagnosis Code: [id number] Procedure History ED Urinary Catheter Present on [...] History (As Of: 10/29/2024 17:13:44 EST) Normal [facility] ED Discharge Educationon ED Discharge Education Normal [facility] ED Emergency Severity Index Adult-Texton 10-29-2024 [...] Huerta RN - 10/29/2024 17:10 EST Normal [facility] ED Patient Summaryon 025 ED Patient Summary [facility] Emergency Department Discharge Instructions [address] [place] [address] (Patient Copy) Name: CHANDANA RAYMUNDO : 1995 Allergies: penicillins Diagnosis: Depression; Verbalizes suicidal thoughts Visit Date: 10/29/2024 17:03:12 [facility]#: [id number] Current Date Time: 10/29/2024 22:04:28 Address: [place] [address] Phone: [phone] Primary Care Provider: Name: NO FAMILY PHYSICIAN, 837 Phone: Emergency Department Care Providers: Primary Physician: MÓNICA SERRANO MD Thank you for choosing [facility] for your emergency care. You are very important to us. Our goal is to demonstrate our high quality medical care, and provide you with a very good patient experience. You may receive a survey about our service. Please take the time to complete the survey and return it so we can continue to enhance our service. Thank you again for allowing the [facility] Emergency Department to care for your medical needs. If you have questions about your care or follow up information please contact us at [phone]. Follow-Up Instructions CHANDANA RAYMUNDO has been given these follow-up instructions: Patient Education Materials CHANDANA RAYMUNDO has been given the following patient education materials: BEFORE YOU LEAVE Set up your [facility] [employer] account! [employer] is a secure, online health management tool that connects you to portions of your hospital-based electronic medical record, allowing you to see test results, manage appointments, access discharge care instructions and much more. You can access [employer] from a computer, tablet or smartphone. Enrollment/registra tion is required. If you do not have a [employer] account, please provide us with an email address before you leave so that we may set up an account for you. New to [employer]! You may now securely connect some of the health management apps you use (e.g., fitness trackers, dietary trackers, etc.) to your health record in [facility] [employer]. This new feature provides expanded access to your health and wellness data, which will help you and your care team make informed decisions about your health care. If you are interested in using a health management mnih not currently connected to [employer], contact a [employer] at [email or web address]. We will determine if the minh meets the technical requirements to connect to [facility] [employer] and assure the security of your private [...] health or substance abuse issue, please call [facility] at [phone] or the National Suicide Prevention Lifeline at . BREANNE Rubio TYLER, have received the follow-up provider(s) list, medication information and patient education materials/instructi ons and have verbalized understanding. Patient Signature Date Time Provider Signature Date Time Normal [facility] ED Physician Reporton 2024 ED Physician [...] Reexamination/Reeva luation Patient will be admitted to [facility] for suicidal thoughts and feelings of depression. [...] 19:55:00 EST, MÓNICA SERRANO MD, [facility], Admit as Inpatient CBCWD(CBC WITH DIFF), STAT, 10/29/2024 17:16:00 EST COMPMETA(CMP), STAT, 10/29/2024 17:16:00 EST COVID-19 Molecular BRED, STAT, 10/29/2024 17:16:00 EST, Specimen type: RESIN REMOVER Swab EKG, 10/29/2024 17:16:00 EST, Other Reason, Cart, Heart Meds Unknown at this time, PRERNA, No EKG/Osborne Requested Level of Care Order, 10/29/2024, Mental [...] 17:17 0 Lymph % 10/29/24 17:17 18.8 [place] % 10/29/24 17:17 4.7 Neutrophil % 10/29/24 17:17 73.8 Eosin % 10/29/24 17:17 1.5 Basos % 10/29/24 17:17 1.2 Lymph Count 10/29/24 17:17 2.20 [place] Count 10/29/24 17:17 0.60 Neutrophil Count (ANC) 10/29/24 17:17 8.80 Eos Count 10/29/24 17:17 0.20 Baso Count 10/29/24 17:17 0.10 Immunology LATEST RESULTS COVID-19 Molecular BRED 10/29/24 17:17 Negative Urine Analysis LATEST RESULTS Color, U 10/29/24 17:17 Yellow Appearance, U 10/29/24 (more content not included)... Normal [facility] ED Progress Noteon ED Progress Note Pt. alert and oriented presents with suicidal ideations due to environmental factors. No attempts. States frequent pot use since the age of 14. Denies physical complaints. Spoke with Yahir at [facility] , due to patient having no insurance and being a resident in [facility]. AP on-call protective services social worker to call back. Pt. resting quietly and in no distress. Awaiting news from [facility]. 1900 Assumed care of patient. A & O x3. Safety maintained. Patient provided water at this time, declines food or snack. 1920 Patient medicated per EMAR, denies questions or concerns. 200 Report given to Charo at [facility]. Patient going to . Received approval from [facility]. 2029 No changes in assessment. 2130 Patient resting in position of comfort with call light within reach. Safety maintained. Respirations even and unlabored, no acute distress. 6 Report given to physician ambulance. Normal [facility] ED Triage CLEANING ATTENDANT - Texton 10-29 ED Triage CLEANING ATTENDANT - Text ED Triage CLEANING ATTENDANT Entered On: 10/29/2024 17:15 EST Performed On: [...] 17:15:39 EST) Problems(Active) Knowledge deficit (SNOMED CT :6787087800 ) Name of Problem: Knowledge deficit ; Recorder: SYSTEM; Confirmation: Confirmed ; Classification: Nursing ; Code: 9494463696 ; Last Updated: 12/06/2013 18:01 EST ; [...] PNED ; Probability: 0 ; Diagnosis Code: [id number] Reason for Visit (As Of: 10/29/2024 17:15:40 EST) Problems(Active) Knowledge deficit (SNOMED CT :2886483043 ) Name of Problem: Knowledge deficit ; Recorder: SYSTEM; Confirmation: Confirmed ; Classification: Nursing ; Code: [id number] ; Last Updated: 12/06/2013 18:01 EST ; [...] PNED ; Probability: 0 ; Diagnosis Code: [id number] Sepsis Screening Sepsis Vitals Screening ED : None/ NA(Peds) Sultana BRIGGS, Jeet Jacobs - 10/29/2024 17:14 EST Normal [facility] HEMOon 10-29-2024 DIFF? No Normal [facility] Comment on above: Performed By: #### 1 94482, 7615284, 797029, 033259 #### [facility] [address] [place] [address] 44130 Hr Recruiter: Junior Little MD Erythrocyte distribution width (RBC) [Ratio] 13.2 % Normal 11.5-14.5 [facility] Comment on above: Performed By: #### 1 07539, 0563139, 393349, 148299 #### [facility] [address] [place] [address] 69934 Hr Recruiter: Junior Little MD Hematocrit (Bld) [Volume fraction] 50.2 % Normal 41.0-52.0 [facility] Comment on above: Performed By: #### 1 27144, 4790564, 505200, 869365 #### [facility] [address] [place] [address] 09109 Hr Recruiter: Junior Little MD Hemoglobin (Bld) [Mass/Vol] 17.2 g/dL Normal 13.5-17.5 [facility] Comment on above: Performed By: #### 1 74083, 0888547, 659408, 240469 #### [facility] [address] [place], [place] [address] Hr Recruiter: Junior Little MD Instr WBC 11.9 Normal [facility] Comment on above: Performed By: #### 1 66332, 8959429, 544441, 190842 #### [facility] [address] [place], [place] [address] Hr Recruiter: Junior Little MD MCH (RBC) [Entitic mass] 32.6 pg Normal 27.0-34.0 [facility] Comment on above: Performed By: #### 1 51606, 1559505, 615697, 515625 #### [facility] [address] [place] [address] 24799 Hr Recruiter: Junior Little MD MCHC (RBC) [Mass/Vol] 34.3 g/dL Normal 32.0-37.0 [facility] Comment on above: Performed By: #### 1 20609, 1348121, 430517, 016721 #### [facility] [address] [place] [address] 56860 Hr Recruiter: Junior Little MD MCV (RBC) [Entitic vol] 95.1 fL Normal 80.0-100.0 [facility] Comment on above: Performed By: #### 1 82981, 2011763, 254403, 861074 #### [facility] [address] [place] [address] 89206 Hr Recruiter: Junior Little MD Nucleated RBC 0 /100WBC Normal [facility] Comment on above: Performed By: #### 1 49071, 3946903, 542922, 329824 #### [facility] [address] [place] [address] 41746 Hr Recruiter: Junior Little MD Platelet 272 x10 Normal 150-450 [facility] Comment on above: Performed By: #### 1 73639, 9080148, 578262, 590143 #### [facility] [address] [place] [address] 78694 Hr Recruiter: Junior Little MD Platelet mean volume (Bld) [Entitic vol] 8.1 fL Normal 7.4-10.4 [facility] Comment on above: Performed By: #### 1 74085, 4412857, 523897, 682736 #### [facility] [address] [place] [address] 55788 Hr Recruiter: Junior Little MD RBC 5.28 x10 Normal 4.70-6.10 [facility] Comment on above: Result Comment: Note : RBC morphology is normal unless otherwise stated. Evaluation performed only if differential is requested. Performed By: #### 1 85228, 4667697, 378043, 961311 #### [facility] [address] [place] [address] 51408 Hr Recruiter: Junior Little MD WBC 11.9 x10 High 4.5-11.0 [facility] Comment on above: Performed By: #### 1 93589, 0668233, 434789, 978439 #### [facility] [address] [place] [address] 69074 Hr Recruiter: MD Atul Andres 10-29-2024 Amphetamines, U Negative Normal [facility] Comment on above: Performed By: #### 1 13262 #### [facility] [address] [place] [address] 94353 Hr Recruiter: Junior Little MD Barbituates, U Negative Normal [facility] Comment on above: Performed By: #### 1 18522 #### [facility] [address] [place] [address] 82930 Hr Recruiter: Junior Little MD Benzodiazepines, U Negative Normal [facility] Comment on above: Performed By: #### 1 70596 #### [facility] [address] [place] [address] 83658 Hr Recruiter: Junior Little MD Cocaine, U Negative Normal [facility] Comment on above: Performed By: #### 1 81212 #### [facility] [address] [place] [address] 83033 Hr Recruiter: Junior Little MD Ecstasy, U Negative Normal [facility] Comment on above: Performed By: #### 1 93428 #### [facility] [address] [place] [address] 58533 Hr Recruiter: Junior Little MD Opiates, U Negative Normal [facility] Comment on above: Performed By: #### 1 81267 #### [facility] [address] [place] [address] 79773 Hr Recruiter: Junior Little MD PCP, U Negative Normal [facility] Comment on above: Performed By: #### 1 70387 #### [facility] [address] [place] [address] 35732 Hr Recruiter: Junior Little MD THC, U Positive Normal [facility] Comment on above: Performed By: #### 1 93632 #### [facility] [address] [place] [address] 82529 Hr Recruiter: Junior Little MD UAon 10-29-2024 Appearance, U Clear Normal [facility] Comment on above: Performed By: #### 1 47390 #### [facility] [address] [place] [address] 70419 Hr Recruiter: Junior Little MD Bacteria, U Occasional Normal [facility] Comment on above: Performed By: #### 1 07915 #### [facility] [address] [place] [address] 41149 Hr Recruiter: Junior Little MD Bilirubin, U Negative Normal [facility] Comment on above: Result Comment: Bili wilkerson, U: Initial positive urine bilirubin results are not confirmed. Interfering substances may include elevated urobilinogen. Trace = 0.5-1.0 mg/dL Small = 2.0-4.0 mg/dL Moderate = 6.0-8.0 mg/dL Large = 10 mg/dl and greater Performed By: #### 1 76539 #### [facility] [address] [place] [address] 70664 Hr Recruiter: Junior Little MD Blood, U Small Abnormal Negative [facility] Comment on above: Result Comment: Bloo d, U: Trace = 0.03-0.05 mg/dL Small = 0.06-0.1 mg/dL Moderate = 0.2-0.5 mg/dL Large = 1.0 mg/dL and greater Performed By: #### 1 65997 #### [facility] [address] [place] [address] 00990 Hr Recruiter: Junior Little MD Color, U Yellow Normal [facility] Comment on above: Performed By: #### 1 48691 #### [facility] [address] [place] [address] 27612 Hr Recruiter: Junior Little MD Glucose Qual, U Negative Normal Negative [facility] Comment on above: Performed By: #### 1 27097 #### [facility] [address] [place] [address] 43553 Hr Recruiter: Junior Little MD Ketones, U Negative Normal Negative [facility] Comment on above: Performed By: #### 1 25570 #### [facility] [address] [place] [address] 17196 Hr Recruiter: Junior Little MD Leukocyte Esterase, U Negative Normal Negative [facility] Comment on above: Result Comment: Leuk ocyte Esterase, U: Trace = 25 Ara/uL Small = 75 Ara/uL Moderate = 250 Ara/uL Large = 500 Ara/uL and greater Performed By: #### 1 06156 #### [facility] [address] [place] [address] 30374 Hr Recruiter: Junior Little MD Mucous, U Occasional Normal [facility] Comment on above: Performed By: #### 1 77695 #### [facility] [address] [place] [address] 73145 Hr Recruiter: Junior Little MD Nitrite, U Negative Normal Negative [facility] Comment on above: Performed By: #### 1 96138 #### [facility] [address] [place] [address] 95272 Hr Recruiter: Junior Little MD pH, U 6.0 Normal 4.5-8.0 [facility] Comment on above: Performed By: #### 1 71587 #### [facility] [address] [place] [address] 27218 Hr Recruiter: Junior Little MD Protein, U >=300 mg/dl Abnormal Negative [facility] Comment on above: Performed By: #### 1 90506 #### [facility] [address] [place] [address] 65100 Hr Recruiter: Junior Little MD RBC/HPF, U 4 #/HPF High 0-3 [facility] Comment on above: Performed By: #### 1 04667 #### [facility] [address] [place] [address] 50255 Hr Recruiter: Junior Little MD Specific [place], U S>=1.030 Normal 1.001-1.035 [facility] Comment on above: Performed By: #### 1 56549 #### [facility] [address] [place] [address] Hr Recruiter: Junior Little MD U MICRO Indicated Normal [facility] Comment on above: Performed By: #### 1 57634 #### [facility] [address] [place] [address] [id number] Hr Recruiter: Junior Little MD Urobilinogen Qual, U 1.0 EU/dl Normal 0.1-1.0 mg/dl [facility] Comment on above: Result Comment: Urob ilinogen, U: EU/dl and mg/dl are equivalent units. Performed By: #### [id number] #### [facility] [address] [place] [address] [id number] Hr Recruiter: Junior Little MD WBC/HPF, U 4 #/HPF Normal 0-5 [facility] Comment on above: Performed By: #### [id number] #### [facility] [address] [place] [id number] Hr Recruiter: Junior Little MD OVon 03-10-2024 [facility] Office Visit (UCTR) ---- CHANDANA RAYMUNDO ([id number]) 1995 M Date Time Provider Department 03/10/24 11:45 AM IGNACIA JUSTICE [facility] During your visit today, we recorded the following information about you: Temperature Pulse Respiration Blood pressure 97 degrees 68/minute 22/minute 143/94 Weight 143 kg Ignacia Justice APRN.RN ANGIOGRAPHY 03/10/2024 1:15 PM Signed This note was created using [employer]. Subjective Chandana Raymundo is a 28 year [...] history is provided by the patient. No language teacher was used. Pain (foot) Pain location: right [...] present. M (more content not included)... Normal [facility] CNOVon 10-20-2023 CNOV Office Visit (UCWSTR) ---- CHANDANA RAYMUNDO ([id number]) 1995 M Date Time Provider Department 10/20/23 2:45 PM ANGEL FRIED [facility] During your visit today, we recorded the following information about you: Temperature Pulse Respiration Blood pressure 98.4 degrees 108/minute 16/minute 180/108 Weight 138.1 kg Angel Fried, [place] 10/20/2023 4:25 PM Signed This note was created using [employer]. Subjective Chandana Raymundo is a 27 year [...] Status:Closed by ANGEL FRIED on 10/20/23 Normal [facility] Absolute lymphocyte countOrd ered By: Valeriy Mercer on 10-12-2023 Lymphocytes Auto (Unsp spec) [#/Vol] 1.99 10*3/uL 0.83-4.51 [facility] Basophil percentageOrdered B y: Valeriy Mercer on 10-12-2023 Basophils/100 WBC (Bld) 0.5 % 0-1 [facility] Chloride [Moles/Vol] 109 mmol/L 98-107 [facility] Eosinophils/100 WBC (Bld) 1.0 % 0-5 [facility] Glucose [Mass/Vol] 99 mg/dL 74-106 [facility] Neutrophils (Bld) [#/Vol] 11.1 10*3/uL 2.0-7.7 [facility] Neutrophils/100 WBC (Bld) 77.9 % 47-70 [facility] Potassium [Moles/Vol] 3.8 mmol/L 3.5-5.1 [facility] Sodium [Moles/Vol] 140 mmol/L 136-145 [facility] WBC (Bld) [#/Vol] 14.2 10*3/uL 4.4-11.0 [facility] Blood erythrocytes count (nu mber/volume)Ordered By: Valeriy Mercer on 10-12-2023 RBC (Bld) [#/Vol] 4.94 10*6/uL 4.6-6.2 [facility] Blood hemoglobin measurement (mass/volume)Ordered By: Valeriy Mercer on 10-12-2023 Hemoglobin (Bld) [Mass/Vol] 15.7 g/dL 13.0-16.5 [facility] Blood lymphocytes/100 leukoc ytesOrdered By: Valeriysymone Mercer on 10-12-2023 Lymphocytes/100 WBC (Bld) 14.1 % 19-41 [facility] Blood monocytes/100 leukocyt esOrdered By: Valeriysymone Mercer on 10-12-2023 Monocytes/100 WBC (Bld) 5.9 % 0-10 [facility] Blood platelet mean volumeOr dered By: Valeriysymoen Mercer on 10-12-2023 Platelet mean volume (Bld) [Entitic vol] 9.7 fL 6.2-12.0 [facility] Determination of erythrocyte mean corpuscular volume (MCV)Ordered By: Valeriysymone Mercer on 10-12-2023 MCV (RBC) [Entitic vol] 94.3 fL 80-94 [facility] Hematocrit Auto (Bld) [Volum e fraction]Ordered By: Valeriysymone Mercer on 10-12-2023 Hematocrit (Bld) [Volume fraction] 46.6 % 40-54 [facility] Influenza virus A and B and SARS-CoV-2 (COVID-19) Ag panel - Upper respiratory specimOrdered By: Valeriysymone Mercer on 10-12-2023 SARS-CoV-2 (COVID-19) RNA HUE+probe Ql (Resp) [facility] - Chemistry and C hemistry - challengeOrdered By: Valeriysymone Mercer on 10-12-2023 CO2 [Moles/Vol] 26.0 mmol/L 21.0-32.0 [facility] Urea nitrogen/Creatinine [Mass ratio] 12.5 mg/mg 10-20 [facility] - Hematology and Cell countsOrdered By: Valeriysymone Mercer on 10-12-2023 Erythrocyte distribution width (RBC) [Entitic vol] 39.5 fL 35.1-43.9 [facility] Erythrocyte distribution width (RBC) [Ratio] 11.4 % 11.6-14.6 [facility] Immature granulocytes/100 WBC (Bld) 0.600 % 0.0-0.9 [facility] Comment on above: IG% - Immature Granu locytes (promyelocytes, myelocytes and metamyelocytes) > 1% indicates that a LEFT SHIFT is Present. MCH (RBC) [Entitic mass] 31.8 pg 27.0-32.0 [facility] Nucleated RBC/100 WBC (Bld) [Ratio] 0 % 0-5 [facility] MCHC Auto (RBC) [Mass/Vol]Or dered By: Valeriy Mercer on 10-12-2023 MCHC (RBC) [Mass/Vol] 33.7 g/dL 32-36 [facility] No Panel InformationOrdered By: Valeriy Mercer on 10-12-2023 Estimated Creatinine Clearance Calc 62.27 ml/min [facility] Estimated GFR (MDRD) Amer 57 mL/min >60 [facility] Comment on above: GFR Calc Estimated GFR (MDRD) Non-Af Amer 47 mL/min >60 [facility] Comment on above: Non- GFR Calc Platelets bldOrdered By: Valeriy Mercer on 10-12-2023 Platelets (Bld) [#/Vol] 248 10*3/uL 150-450 [facility] Serum or plasma calcium khanh urement (mass/volume)Ordered By: Valeriy Mercer on 10-12-2023 Calcium [Mass/Vol] 9.3 mg/dL 8.5-10.1 [facility] Serum or plasma creatinine m easurement (mass/volume)Ordered By: Valeriy Mercer on 10-12-2023 Creatinine [Mass/Vol] 1.84 mg/dL 0.70-1.30 [facility] Comment on above: The validity of the calculated GFR & GFRAA in patients over 70 years has not been determined. Clinical correlation is essential. Serum or plasma urea nitroge n measurement (mass/volume)Ordered By: Valeriy Mercer on 10-12-2023 Urea nitrogen [Mass/Vol] 23 mg/dL - [facility] Thin prep Papanicolaou smear with manual screeningOrdered By: Valeriy Mercer on 10-12-2023 Thin prep Papanicolaou smear with manual screening 5 5-15 [facility] CNOVon 06-14-2023 CNOV Office Visit (UCWSTR) ---- CHANDANA RAYMUNDO ([id number]) 1995 M Date Time Provider Department 06/14/23 [...] He verbalized understanding. Tiffany Samano APRN.Tiffany Lees APRN.RN ANGIOGRAPHY 06/19/2023 3:08 PM Addendum Subjective Suture Removal [...] with it. He verbalized understanding. Tiffany Samano APRN.RN ANGIOGRAPHY Referring Provider: SELF [[id number]] Allergies As of [...] with it. He verbalized understanding. Tiffany Samano APRN.RN ANGIOGRAPHY Encounter Status:Closed by TIFFANY SAMANO on 06/14/23 Normal [facility] Absolute lymphocyte countOrd ered By: Dr. Winkler on 03-08-2023 Lymphocytes Auto (Unsp spec) [#/Vol] 2.05 10*3/uL 0.83-4.51 [facility] Basophil percentageOrdered B y: Dr. Winkler on 03-08-2023 Basophils/100 WBC (Bld) 0.6 % 0-1 [facility] Chloride [Moles/Vol] 110 mmol/L 98-107 [facility] Eosinophils/100 WBC (Bld) 2.1 % 0-5 [facility] Glucose [Mass/Vol] 143 mg/dL 74-106 [facility] Comment on above: Fasting Glucose resu lt greater than or equal to 126 mg/dL suggests DIABETES MELLITUS per A.D.A. criteria. Neutrophils (Bld) [#/Vol] 7.3 10*3/uL 2.0-7.7 [facility] Neutrophils/100 WBC (Bld) 69.1 % 47-70 [facility] Potassium [Moles/Vol] 4.2 mmol/L 3.5-5.1 [facility] Sodium [Moles/Vol] 143 mmol/L 136-145 [facility] WBC (Bld) [#/Vol] 10.6 10*3/uL 4.4-11.0 [facility] Blood erythrocytes count (nu mber/volume)Ordered By: Dr. Winkler on 03-08-2023 RBC (Bld) [#/Vol] 4.54 10*6/uL 4.6-6.2 [facility] Blood hemoglobin measurement (mass/volume)Ordered By: Dr. Winkler on 03-08-2023 Hemoglobin (Bld) [Mass/Vol] 14.8 g/dL 13.0-16.5 [facility] Blood lymphocytes/100 leukoc ytesOrdered By: Dr. Winkler on 03-08-2023 Lymphocytes/100 WBC (Bld) 19.4 % 19-41 [facility] Blood monocytes/100 leukocyt esOrdered By: Dr. Winkler on 03-08-2023 Monocytes/100 WBC (Bld) 8.3 % 0-10 [facility] Blood platelet mean volumeOr dered By: Dr. Winkler on 03-08-2023 Platelet mean volume (Bld) [Entitic vol] 10.1 fL 6.2-12.0 [facility] Determination of erythrocyte mean corpuscular volume (MCV)Ordered By: Dr. Winkler on 03-08-2023 MCV (RBC) [Entitic vol] 97.1 fL 80-94 [facility] Hematocrit Auto (Bld) [Volum e fraction]Ordered By: Dr. Winkler on 03-08-2023 Hematocrit (Bld) [Volume fraction] 44.1 % 40-54 [facility] - Chemistry and C hemistry - challengeOrdered By: Dr. Winkler on 03-08-2023 CO2 [Moles/Vol] 27.0 mmol/L 21.0-32.0 [facility] Natriuretic peptide B (Bld) [Mass/Vol] 10.9 pg/mL 0-100 [facility] Urea nitrogen/Creatinine [Mass ratio] 15.7 mg/mg 10-20 [facility] - Hematology and Cell countsOrdered By: Dr. Winkler on 03-08-2023 Erythrocyte distribution width (RBC) [Entitic vol] 42.8 fL 35.1-43.9 [facility] Erythrocyte distribution width (RBC) [Ratio] 11.9 % 11.6-14.6 [facility] Immature granulocytes/100 WBC (Bld) 0.500 % 0.0-0.9 [facility] Comment on above: IG% - Immature Granu locytes (promyelocytes, myelocytes and metamyelocytes) > 1% indicates that a LEFT SHIFT is Present. MCH (RBC) [Entitic mass] 32.6 pg 27.0-32.0 [facility] Nucleated RBC/100 WBC (Bld) [Ratio] 0 % 0-5 [facility] MCHC Auto (RBC) [Mass/Vol]Or dered By: Dr. Winkler on 03-08-2023 MCHC (RBC) [Mass/Vol] 33.6 g/dL 32-36 [facility] No Panel InformationOrdered By: Dr. Winkler on 03-08-2023 Troponin I High Sensitivity 8 pg/mL 3.0-78.0 [facility] Comment on above: Please Note: New Renetta t Units and Gender Specific Reference Ranges. For more information see Policy Stat Procedure [place] High Sensitivity Troponin (TNIH) and attachments. D-Dimer Quantitative (PE/DVT) 0.30 FEU/ug/m 0.27-0.49 [facility] Comment on above: NORMAL D-Dimer level (<0.50) indicates no DVT or PE. Estimated Creatinine Clearance Calc 69.02 ml/min [facility] Estimated GFR (MDRD) Amer 64 mL/min >60 [facility] Comment on above: GFR Calc Estimated GFR (MDRD) Non-Af Amer 53 mL/min >60 [facility] Comment on above: Non- GFR Calc Platelets bldOrdered By: Dr. Winkler on 03-08-2023 Platelets (Bld) [#/Vol] 205 10*3/uL 150-450 [facility] Serum or plasma calcium khanh urement (mass/volume)Ordered By: Dr. Winkler on 03-08-2023 Calcium [Mass/Vol] 8.6 mg/dL 8.5-10.1 [facility] Serum or plasma creatinine m easurement (mass/volume)Ordered By: Dr. Winkler on 03-08-2023 Creatinine [Mass/Vol] 1.66 mg/dL 0.70-1.30 [facility] Comment on above: The validity of the calculated GFR & GFRAA in patients over 70 years has not been determined. Clinical correlation is essential. Serum or plasma urea nitroge n measurement (mass/volume)Ordered By: Dr. Winkler on 03-08-2023 Urea nitrogen [Mass/Vol] 26 mg/dL 7-18 [facility] Thin prep Papanicolaou smear with manual screeningOrdered By: Dr. Winkler on 03-08-2023 Thin prep Papanicolaou smear with manual screening 6 5-15 [facility] Absolute lymphocyte countOrd ered By: Dr. Ann on 02-19-2023 Lymphocytes Auto (Unsp spec) [#/Vol] 1.96 10*3/uL 0.83-4.51 [facility] Basophil percentageOrdered B y: Dr. Ann on 02-19-2023 Basophils/100 WBC (Bld) 0.4 % 0-1 [facility] Chloride [Moles/Vol] 108 mmol/L 98-107 [facility] Eosinophils/100 WBC (Bld) 1.5 % 0-5 [facility] Glucose [Mass/Vol] 86 mg/dL 74-106 [facility] Neutrophils (Bld) [#/Vol] 12.7 10*3/uL 2.0-7.7 [facility] Neutrophils/100 WBC (Bld) 78.7 % 47-70 [facility] Potassium [Moles/Vol] 3.7 mmol/L 3.5-5.1 [facility] Sodium [Moles/Vol] 138 mmol/L 136-145 [facility] WBC (Bld) [#/Vol] 16.1 10*3/uL 4.4-11.0 [facility] Blood erythrocytes count (nu mber/volume)Ordered By: Dr. Ann on 02-19-2023 RBC (Bld) [#/Vol] 5.15 10*6/uL 4.6-6.2 [facility] Blood hemoglobin measurement (mass/volume)Ordered By: Dr. Ann on 02-19-2023 Hemoglobin (Bld) [Mass/Vol] 17.3 g/dL 13.0-16.5 [facility] Blood lymphocytes/100 leukoc ytesOrdered By: Dr. Ann on 02-19-2023 Lymphocytes/100 WBC (Bld) 12.2 % 19-41 [facility] Blood monocytes/100 leukocyt esOrdered By: Dr. Ann on 02-19-2023 Monocytes/100 WBC (Bld) 6.6 % 0-10 [facility] Blood platelet mean volumeOr dered By: Dr. Ann on 02-19-2023 Platelet mean volume (Bld) [Entitic vol] 10.1 fL 6.2-12.0 [facility] COVID-19 virus antigen assay Ordered By: Dr. Ann on 02-19-2023 SARS-CoV-2 (COVID-19) Ag IA.rapid Ql (Resp) [facility] Determination of erythrocyte mean corpuscular volume (MCV)Ordered By: Dr. Ann on 02-19-2023 MCV (RBC) [Entitic vol] 95.5 fL 80-94 [facility] Hematocrit Auto (Bld) [Volum e fraction]Ordered By: Dr. Ann on 02-19-2023 Hematocrit (Bld) [Volume fraction] 49.2 % 40-54 [facility] - Chemistry and C hemistry - challengeOrdered By: Dr. Ann on 02-19-2023 CO2 [Moles/Vol] 25.0 mmol/L 21.0-32.0 [facility] Urea nitrogen/Creatinine [Mass ratio] 10.7 mg/mg 10-20 [facility] - Hematology and Cell countsOrdered By: Dr. Ann on 02-19-2023 Erythrocyte distribution width (RBC) [Entitic vol] 41.1 fL 35.1-43.9 [facility] Erythrocyte distribution width (RBC) [Ratio] 11.7 % 11.6-14.6 [facility] Immature granulocytes/100 WBC (Bld) 0.600 % 0.0-0.9 [facility] Comment on above: IG% - Immature Granu locytes (promyelocytes, myelocytes and metamyelocytes) > 1% indicates that a LEFT SHIFT is Present. MCH (RBC) [Entitic mass] 33.6 pg 27.0-32.0 [facility] Nucleated RBC/100 WBC (Bld) [Ratio] 0 % 0-5 [facility] MCHC Auto (RBC) [Mass/Vol]Or dered By: Dr. Ann on 02-19-2023 MCHC (RBC) [Mass/Vol] 35.2 g/dL 32-36 [facility] No Panel InformationOrdered By: Dr. Ann on 02-19-2023 Estimated Creatinine Clearance Calc 72.06 ml/min [facility] Estimated GFR (MDRD) Amer 67 mL/min >60 [facility] Comment on above: GFR Calc Estimated GFR (MDRD) Non-Af Amer 56 mL/min >60 [facility] Comment on above: Non- GFR Calc Troponin I High Sensitivity 9 pg/mL 3.0-78.0 [facility] Comment on above: Please Note: New Renetta t Units and Gender Specific Reference Ranges. For more information see Policy Stat Procedure [place] High Sensitivity Troponin (TNIH) and attachments. Platelets bldOrdered By: Dr. Ann on 02-19-2023 Platelets (Bld) [#/Vol] 256 10*3/uL 150-450 [facility] Serum or plasma calcium khanh urement (mass/volume)Ordered By: Dr. Ann on 02-19-2023 Calcium [Mass/Vol] 9.3 mg/dL 8.5-10.1 [facility] Serum or plasma creatinine m easurement (mass/volume)Ordered By: Dr. Ann on 02-19-2023 Creatinine [Mass/Vol] 1.59 mg/dL 0.70-1.30 [facility] Comment on above: The validity of the calculated GFR & GFRAA in patients over 70 years has not been determined. Clinical correlation is essential. Serum or plasma urea nitroge n measurement (mass/volume)Ordered By: Dr. Ann on 02-19-2023 Urea nitrogen [Mass/Vol] 17 mg/dL 7-18 [facility] Thin prep Papanicolaou smear with manual screeningOrdered By: Dr. Ann on 02-19-2023 Thin prep Papanicolaou smear with manual screening 5 5-15 [facility] ED Note-Provideron 8 ED Note-Provider Normal [facility] ([place]) Pat Eduon 12-28-2017 [facility] ([place]) Patient Summary Documentson 12-28-2017 Patient Summary Documents [facility] ([place]) Vital Signs Date Time Vital Sign Value Performing Clinician Iban osborn 04-21-2025 10:44-0400 Body temperature 97.9 [degF] No Primary Care Physician [facility] 04-21-2025 10:44-0400 Diastolic blood pressure 109 mm[Hg] No Primary Care Physician [facility] 04-21-2025 10:44-0400 Heart rate 79 /min No Primary Care Physician [facility] 04-21-2025 10:44-0400 Respiratory rate 16 /min No Primary Care Physician [facility] 04-21-2025 10:44-0400 SaO2% (BldA) [Mass fraction] 97 % No Primary Care Physician [facility] 04-21-2025 10:44-0400 Systolic blood pressure 186 mm[Hg] No Primary Care Physician [facility] 04-21-2025 07:49-0400 Body height 177.8 cm No Primary Care Physician [facility] 04-21-2025 07:49-0400 Body mass index (BMI) [Ratio] 43 kg/m2 No Primary Care Physician [facility] 04-21-2025 07:49-0400 Body weight 136 kg No Primary Care Physician [facility] 04-16-2025 18:09-0400 Body temperature 98.2 [degF] No Primary Care Physician [facility] 04-16-2025 18:09-0400 Diastolic blood pressure 108 mm[Hg] No Primary Care Physician [facility] 04-16-2025 18:09-0400 Heart rate 82 /min No Primary Care Physician [facility] 04-16-2025 18:09-0400 Respiratory rate 16 /min No Primary Care Physician [facility] 04-16-2025 18:09-0400 SaO2% (BldA) [Mass fraction] 100 % No Primary Care Physician [facility] 04-16-2025 18:09-0400 Systolic blood pressure 174 mm[Hg] No Primary Care Physician [facility] 04-16-2025 17:28-0400 Body height 177.8 cm No Primary Care Physician [facility] 04-16-2025 17:28-0400 Body mass index (BMI) [Ratio] 43.5 kg/m2 No Primary Care Physician [facility] 04-16-2025 17:28-0400 Body weight 137.75 kg No Primary Care Physician [facility] 03-30-2025 14:35-0400 Body temperature 97.6 [degF] No Primary Care Physician [facility] 03-30-2025 14:35-0400 Diastolic blood pressure 108 mm[Hg] No Primary Care Physician [facility] 03-30-2025 14:35-0400 Heart rate 73 /min No Primary Care Physician [facility] 03-30-2025 14:35-0400 Respiratory rate 18 /min No Primary Care Physician [facility] 03-30-2025 14:35-0400 SaO2% (BldA) [Mass fraction] 98 % No Primary Care Physician [facility] 03-30-2025 14:35-0400 Systolic blood pressure 173 mm[Hg] No Primary Care Physician [facility] 03-30-2025 13:00-0400 Body height 177.8 cm No Primary Care Physician [facility] 03-30-2025 13:00-0400 Body mass index (BMI) [Ratio] 43.3 kg/m2 No Primary Care Physician [facility] 03-30-2025 13:00-0400 Body weight 136.98 kg No Primary Care Physician [facility] 12-22-2024 13:23-0500 Body temperature 98.2 [degF] No Primary Care Physician [facility] 12-22-2024 13:23-0500 Diastolic blood pressure 102 mm[Hg] No Primary Care Physician [facility] 12-22-2024 13:23-0500 Heart rate 89 /min No Primary Care Physician [facility] 12-22-2024 13:23-0500 Respiratory rate 15 /min No Primary Care Physician [facility] 12-22-2024 13:23-0500 SaO2% (BldA) [Mass fraction] 99 % No Primary Care Physician [facility] 12-22-2024 13:23-0500 Systolic blood pressure 155 mm[Hg] No Primary Care Physician [facility] 12-06-2024 04:31-0500 Body temperature 98.7 [degF] No Primary Care Physician [facility] 12-06-2024 04:31-0500 Diastolic blood pressure 108 mm[Hg] No Primary Care Physician [facility] 12-06-2024 04:31-0500 Heart rate 79 /min No Primary Care Physician [facility] 12-06-2024 04:31-0500 Respiratory rate 18 /min No Primary Care Physician [facility] 12-06-2024 04:31-0500 SaO2% (BldA) [Mass fraction] 97 % No Primary Care Physician [facility] 12-06-2024 04:31-0500 Systolic blood pressure 181 mm[Hg] No Primary Care Physician [facility] 03-10-2024 11:52-0400 Body temperature 97 [degF] Ignacia Justice APRN.CNP Work Phone: [facility] 03-10-2024 11:52-0400 Body weight 143 kg Ignacia Justice APRN.CNP Work Phone: [facility] 03-10-2024 11:52-0400 Diastolic blood pressure 94 mm[Hg] Ignacia Justice INDUSTRIAL [employer]ERIAL INSTALLER.RN ANGIOGRAPHY Work Phone: [facility] 03-10-2024 11:52-0400 Heart rate 68 /min Ignacia Justice INDUSTRIAL AERIAL INSTALLER.RN ANGIOGRAPHY Work Phone: [facility] 03-10-2024 11:52-0400 Respiratory rate 22 /min Ignacia Justice INDUSTRIAL AERIAL INSTALLER.RN ANGIOGRAPHY Work Phone: [facility] 03-10-2024 11:52-0400 SaO2% (BldA) [Mass fraction] 97 % Ignacia Justice INDUSTRIAL AERIAL INSTALLER.RN ANGIOGRAPHY Work Phone: [facility] 03-10-2024 11:52-0400 Systolic blood pressure 143 mm[Hg] Ignacia Justice INDUSTRIAL AERIAL INSTALLER.RN ANGIOGRAPHY Work Phone: [facility] 10-20-2023 14:46-0500 Body temperature 98.4 [degF] Angel Athy PA-C Work Phone: [facility] 10-20-2023 14:46-0500 Body weight 138.07 kg Angel Athy PA-C Work Phone: [facility] 10-20-2023 14:46-0500 Diastolic blood pressure 108 mm[Hg] Angel Athy PA-C Work Phone: [facility] 10-20-2023 14:46-0500 Heart rate 108 /min Angel Athy PA-C Work Phone: [facility] 10-20-2023 14:46-0500 Respiratory rate 16 /min Angel Athy PA-C Work Phone: [facility] 10-20-2023 14:46-0500 SaO2% (BldA) [Mass fraction] 97 % Angel Athy PA-C Work Phone: [facility] 10-20-2023 14:46-0500 Systolic blood pressure 180 mm[Hg] Angel Athy PA-C Work Phone: [facility] 10-12-2023 21:48-0500 Respiratory rate 14 /min [facility] 10-12-2023 20:13-0500 Heart rate 89 /min [facility] 10-12-2023 19:19-0500 Body height 177.8 cm [facility] 10-12-2023 19:19-0500 Body mass index (BMI) [Ratio] 43.4 kg/m2 [facility] 10-12-2023 19:19-0500 Body temperature 97.2 [degF] [facility] 10-12-2023 19:19-0500 Body weight 137.52 kg [facility] 10-12-2023 19:19-0500 Diastolic blood pressure 103 mm[Hg] [facility] 10-12-2023 19:19-0500 SaO2% (BldA) [Mass fraction] 96 % [facility] 10-12-2023 19:19-0500 Systolic blood pressure 166 mm[Hg] [facility] 05-25-2023 10:43-0400 Body height 177.8 cm [facility] 05-25-2023 10:43-0400 Body mass index (BMI) [Ratio] 41.4 kg/m2 [facility] 05-25-2023 10:43-0400 Body temperature 98 [degF] [facility] 05-25-2023 10:43-0400 Body weight 131.08 kg [facility] 05-25-2023 10:43-0400 Diastolic blood pressure 101 mm[Hg] [facility] 05-25-2023 10:43-0400 Heart rate 76 /min [facility] 05-25-2023 10:43-0400 Respiratory rate 14 /min [facility] 05-25-2023 10:43-0400 SaO2% (BldA) [Mass fraction] 97 % [facility] 05-25-2023 10:43-0400 Systolic blood pressure 151 mm[Hg] [facility] 03-08-2023 16:46-0400 Respiratory rate 16 /min [facility] 03-08-2023 15:00-0400 Diastolic blood pressure 104 mm[Hg] [facility] 03-08-2023 15:00-0400 Heart rate 83 /min [facility] 03-08-2023 15:00-0400 SaO2% (BldA) [Mass fraction] 96 % [facility] 03-08-2023 15:00-0400 Systolic blood pressure 150 mm[Hg] [facility] 03-08-2023 12:29-0400 Body height 177.8 cm [facility] 03-08-2023 12:29-0400 Body mass index (BMI) [Ratio] 35.9 kg/m2 [facility] 03-08-2023 12:29-0400 Body temperature 96.9 [degF] [facility] 03-08-2023 12:29-0400 Body weight 113.39 kg [facility] 02-19-2023 20:02-0400 Diastolic blood pressure 89 mm[Hg] [facility] 02-19-2023 20:02-0400 Heart rate 95 /min [facility] 02-19-2023 20:02-0400 Respiratory rate 18 /min [facility] 02-19-2023 20:02-0400 SaO2% (BldA) [Mass fraction] 93 % [facility] 02-19-2023 20:02-0400 Systolic blood pressure 150 mm[Hg] [facility] 02-19-2023 17:39-0400 Body height 177.8 cm [facility] 02-19-2023 17:39-0400 Body mass index (BMI) [Ratio] 38.2 kg/m2 [facility] 02-19-2023 17:39-0400 Body temperature 97 [degF] [facility] 02-19-2023 17:39-0400 Body weight 121.1 kg [facility] 04-19-2022 15:01-0400 Diastolic blood pressure 79 mm[Hg] [facility] Work Phone: 04-19-2022 15:01-0400 Heart rate 84 /min [facility] Work Phone: 04-19-2022 15:01-0400 Respiratory rate 17 /min [facility] Work Phone: 04-19-2022 15:01-0400 SaO2% (BldA) [Mass fraction] 97 % [facility] Work Phone: 04-19-2022 15:01-0400 Systolic blood pressure 152 mm[Hg] [facility] Work Phone: 04-19-2022 12:55-0400 Body height 180.34 cm [facility] Work Phone: 04-19-2022 12:55-0400 Body mass index (BMI) [Ratio] 39.7 kg/m2 [facility] Work Phone: 04-19-2022 12:55-0400 Body temperature 98.5 [degF] [facility] Work Phone: 04-19-2022 12:55-0400 Body weight 129.27 kg [facility] Work Phone: Encounters Encounter Date Encounter Type [...] Start: 12-22-2024 ambulatory Ed Physician Provider F acility:[facility] Start: 12-22-2024 End: 12-22-2024 Emergency department patient visit Dr. Ryan Crump MD -Emergency Department Work Phone: Start: 12-06-2024 End: 12-06-2024 Emergency department patient visit Dr. Chandana Huang DO -Emergency Department Work Phone: Start: 10-29-2024 End: 11-01-2024 Evaluation and management of inpatient 837 NO FAMILY PHYSICIAN Facility:[id number] Start: 03-10-2024 End: 03-10-2024 ambulatory Facility:[facility] Start: 03-10-2024 End: 03-10-2024 Patient encounter procedure Ignacia Kellen INDUSTRIAL AERIAL INSTALLER.RN ANGIOGRAPHY Work Phone: [facility] Comment on above: Gouty arthritis of r ight great toe (Primary Dx) Start: 10-20-2023 End: 10-20-2023 ambulatory Facility:[facility] Start: 10-20-2023 End: 10-20-2023 Patient encounter procedure Angel Fried PA-C Work Phone: [facility] Comment on above: COVID-19 (Primary Dx ); Hypertension, unspecified type Start: 10-12-2023 End: 10-12-2023 Emergency department patient visit [facility]-Emergency Department Work Phone: Start: 06-14-2023 End: 06-14-2023 ambulatory Facility:[facility] Start: 05-25-2023 End: 05-25-2023 Emergency department patient visit [facility]gency [facility] Work Phone: Start: 03-08-2023 End: 03-08-2023 Patient encounter procedure Marylu Delaney INDUSTRIAL AERIAL INSTALLER.RN ANGIOGRAPHY Work Phone: [facility] Comment on above: Chest pain, unspecif ied type (Primary Dx); Bloody stool Start: 03-08-2023 End: 03-08-2023 Emergency department patient visit [facility]-Emergency Department Start: 02-19-2023 End: 02-19-2023 Emergency department patient visit [facility]gency [facility] Start: 04-19-2022 End: 04-19-2022 Emergency department patient visit [facility] Start: 07-25-2021 End: 07-25-2021 Emergency department patient visit [facility] Start: 05-29-2021 End: 05-29-2021 Emergency department patient visit [facility] Start: 12-28-2017 End: 12-28-2017 Emergency department [...] DTaP,Tdap,Td Vaccine (9 - Td or Tdap) [facility] Start: 04-21-2025 [facility] Start: 04-16-2025 [facility] Start: 03-30-2025 [facility] Start: 12-22-2024 [facility] Start: 12-06-2024 [facility] Start: 12-06-2024 Respiratory secretion precautions [facility] Start: 06-26-2024 Influenza vaccination Influenza Vaccine (Season Ended) [facility] Start: 10-26-2023 Behavioral Health Screening Behavioral Health Screening [facility] Start: 10-12-2023 [facility] Start: 06-26-2023 Covid-19 Vaccine ( season) Covid-19 Vaccine ( season) [facility] Start: 06-26-2023 Influenza vaccination [facility] Start: 03-08-2023 Electrocardiographic procedure [facility] Start: 03-08-2023 [facility] Start: 02-19-2023 [facility] Start: 02-19-2023 End: 02-19-2023 [facility] Start: 10-26-2022 DEPRESSION ASSESSMENT DEPRESSION ASSESSMENT [facility] Start: 2014 Urine microalbumin profile DTAP,TDAP,TD (1 - Tdap) [facility] Start: 2013 HEPATITIS C SCREENING HEPATITIS C SCREENING [facility] Start: 2013 Hepatitis C screening Hepatitis C Screening [facility] Start: 2013 HIV SCREENING HIV SCREENING [facility] Start: 2013 HIV screening HIV Screening [facility] Start: 2001 PNEUMOCOCCAL (1 - PCV) PNEUMOCOCCAL (1 - PCV) [facility] Start: 2001 Pneumococcal vaccination Pneumococcal Vaccine (1 of 2 - PCV) [facility] Start: 04-22-1996 COVID-19 VACCINE (#1) COVID-19 VACCINE (#1) [facility] Start: 1995 HEPATITIS B (1 of 3 - 3-dose series) HEPATITIS B (1 of 3 - 3-dose series) [facility] Patient Education [facility] Work Phone: Patient referral [facility] Work Phone: Immunizations Immunization Date Immunization Notes Care Provider Fa cility 05-29-2023 tetanus toxoid, redu chloé diphtheria toxoid, and acellular pertussis vaccine, adsorbed [facility] 07-04-2015 tetanus toxoid, redu chloé diphtheria toxoid, and acellular pertussis vaccine, adsorbed [facility] 07-17-2009 influenza virus vaccine, unspecified formulation Angel Fried PA-C Work Phone: [facility] Payers Date Payer Category Payer Self-pay [id number] 2022 Medicaid [facility] MEDICAID [id number] 2022-Present [phone] [address] [place] [address] Medicaid [id number] 2013 Unknown [id number] 1995 Unknown [id number] 1995 Unknown [id number] 1995 Unknown [id number] 1959 Unknown [id number] Unknown [id number] Unknown [id number] Unknown [id number] Unknown [id number] Unknown [id number] Unknown [id number] Social History Date Type Detail Facility Start: 04-19-2022 End: 10-12-2023 Tobacco smoking status [facility] Unknown if ever smoked [facility] Start: 1995 Sex Assigned At Male [facility] Start: 08-19-2015 End: 04-21-2025 Tobacco smoking status [facility] Smokes tobacco daily [facility] History of tobacco use Cigarette Smoker [facility] Start: 08-19-2015 End: 03-10-2024 Cigarettes smoked current (pack per day) - Reported 0.5 [facility] Start: 08-19-2015 End: 03-10-2024 Alcohol intake Current drinker of alcohol (finding) [facility] Start: 08-19-2015 Alcohol Comment weekly [facility] Start: 1995 Sex Assigned At Not on file [facility] Start: 03-05-2014 Rare [facility] Start: 03-05-2014 None [facility] Start: 03-05-2014 With Family [facility] Start: 10-20-2023 End: 03-10-2024 Tobacco use panel [facility] Mental Status Date Assessment Result Facility 12-06-2024 Cognitive function Level Of Cons ciousness Awake;Alert;Appropriate;Follow s Commands [facility] Work Phone: 03-08-2023 Cognitive function Awake;Alert;A ppropriate;Follow s Commands [facility] Work Phone: Clinical Notes 02-19-2023 to 04-21-2025 Kellen IgnaciaJESÚS olson.BONNY - 03/10/2024 12:02 PM EDTAAngel carter PA-C - 10/20/2023 4:21 PM EST Note Date & Type Note Facility 04-21-2025 Discharge summary [facility] 04-21-2025 Radiology Diagnostic study note [facility] Imaging Services [address] [place] [address] Ankle min 3 Views MR#: [id number] Acct: [id number] Name: CHANDANA RAYMUNDO Rep #: [id number] : 1995 M 29 From: Esteban Lopez MD PCP: Care Physician,No Primary Status: REG ER Study:Ankle min 3 Views Date of Exam: Exam# [id number] Ordering Dr: Estuardo Maloney MD PROCEDURE: ANKLE MIN 3 VIEWS 04/21/2025 REASON FOR EXAM: PAIN TECHNIQUE: ANKLE MIN 3 VIEWS COMPARISON: None FINDINGS: Bones: No fracture seen. Joints: Normal alignment. Mortise appears intact. No effusion. Soft tissues: Soft tissues are unremarkable. Other: RAD/Ankle min 3 Views IMPRESSION: NEGATIVE ANKLE SERIES Reading Location: [id number] CC: Dr. Sung Maloney MD; No Primary Care Physician ~ Protector Plate Attacher: Signed [facility] 03-30-2025 Radiology Diagnostic study note [facility] Imaging Services [address] [place] [address] Chest 1 View (Portable) MR#: [id number] Acct: [id number] Name: CHANDANA RAYMUNDO Rep #: [id number] : 1995 M 29 From: Elicia Dial MD PCP: Care Physician,No Primary Status: REG ER Study:Chest 1 View (Portable) Date of Exam: 03/30/25 Exam# [id number] Ordering Dr: Geovani Duarte DO PROCEDURE: CHEST [...] 1. No active cardiopulmonary disease. Reading Location: [place] [address] CC: Dr. 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 : N/A ED Disassociate Patient from Monitor : N/A Updated Depart Time : Yes Mode of Discharge : Stretcher Discharge Transportation : Ground ambulance ED Belongings sent w patient [id number] : Yes Valuables Complete : No Julieta Tucker RN - 10/29/2024 22:03 EST Education Instructions given to : Patient TeachBack Methodology : Printed Material Barriers to Learning : None evident Julieta Tucker RN - 10/29/2024 22:03 EST Post-Hospital Education Adult Grid Plan of Care : Verbalizes understanding Julieta Tucker RN - 10/29/2024 22:03 EST Valuables/Belongings Belongings Sent Home With : sent to [employer] clothes, [place], cellphone car keys Julieta Tucker RN - 10/29/2024 22:03 EST ED Assistance Summary Assistance Given? : No Julieta Tucker RN - 10/29/2024 22:03 EST [facility] 03-10-2024 Note HNO ID: [id number] Author: IGNACIA JUSTICE APRN.RN ANGIOGRAPHY Service: ? Author Type: Nurse Practitioner Type: Progress Notes Filed: 03/10/2024 13:15 Note Text: This note was created using Loopcam[employer]. Subjective Chandana Raymundo is a 28 year [...] history is provided by the patient. No language teacher was used. Pain (foot) Pain location: right [...] Right great to (more content not included)... [facility] 03-10-2024 History of Present illness Narrative This note was created using Loopcamriter. Subjective Chandana Raymundo is a 28 year [...] history is provided by the patient. No language teacher was used. Pain (foot) Pain location: right [...] Avoid triggers F/U with PCP Ignacia Justice APRN.RN ANGIOGRAPHY documented in this encounter [facility] 10-20-2023 Note HNO ID: [id number] Author: Angel Fried PA-C Service: ? Author Type: Physician Seed Cutter Type: Progress Notes Filed: 10/20/2023 4:25 PM Note Text: This note was created using [employer]cam[employer]. Subjective Chandana Raymundo is a 27 year [...] symptoms of hypertension today. Angel Fried PA-C [facility] 10-20-2023 History of Present illness Narrative This note was created using [employer]. Subjective Chandana Raymundo is a 27 year [...] Angel Fried PA-C documented in this encounter [facility] 10-12-2023 Discharge summary Note Date/Time October 12, 2023 7:51pm [facility] Medical Records Department [address] [place] [address] Emergency Department Summary 10/12/23 MR#: [id number] Acct: [id number] Name: CHANDANA RAYMUNDO Rep #:[id number] : [...] 77.9 H Lymph % (Auto) 14.1 L [place] % (Auto) 5.9 Eos % (Auto) 1.0 [...] 20:31 EST Reading Location ID and State: [facility] / [place] Tel [phone], Service support , Treatment and Re-Evaluation :: [...] days. He also was instructed follow-up with [facility] in 1 to 2 weeks to [...] are elevated. [facility] 1 to 2 weeks Disposition Disposition: Home, Self Care What to do if you have Problems For any increased pain, shortness of breath, bleeding, nausea or vomiting, chestpain, or any unexpected problems, contact your Primary Care Provider. Call [facility] ([phone]) or report to the closest Emergency Room. Call 911 if necessary. 10/12/232133 <Electronically signed by Valeriy Mercer MD> Cosigner Signature (if applicable): CC: No Primary Care Physician ~ Signed [facility] Work Phone: 1(279) 600-430808-20-2023 NoteHNO ID: [id number] Author: Tiffany Samano APRN.RN ANGIOGRAPHY Service: ? Author Type: Nurse Practitioner Type: [...] with it. He verbalized understanding. Tiffany Samano APRN.[facility]05-14-[address] Winkler [facility] March 08, 2023 4:21pm Note Date/Time March 08, 2023 12:38 pm [facility] Medical Records Department [address] [place] [address] Emergency Department Summary 03/08/23 MR#: [id number] Acct: [id number] Name: CHANDANA RAYMUNDO Rep #:[id number] : 1995 27 From: Chad Ashby PCP: Care Physician,No Primary Status :REG ER Location: ED HPI History of Present Illness Chief Complaint: Chest Pain [facility] Medical History (Updated 03/08/23 @ 16:17 [...] pathognomonic EKG changes (no diffuse ST elevations, ND depressions). GI etiology (i.e. Boerhaave syndrome) less [...] % (Auto) 69.1 Lymph % (Auto) 19.4 [place] % (Auto) 8.3 Eos % (Auto) 2.1 [...] (Auto) Neut % (Auto) Lymph % (Auto) [place] % (Auto) Eos % (Auto) Baso % [...] Care Physician,No Primary Referrals: Adams Cartagena MD [[facility] Staff - Business Office Representative] - Activity Restrictions/Additional Instructions: Thank you for [...] your Primary Care Provider. Call [facility] ([phone]) or report to the closest Emergency Room. Call 911 if necessary. 03/08/23 1621 <Electronically signed by Chad Winkler DO> Cosigner Signature (if applicable): CC: No Primary Care Physician ~ Signed [facility] Work Phone: 1(143) 240-176305-14-2023 History of Present illness Narrative* Marylu Delaney [...] wants to take himself. [facility] Ann [facility] February 19, 2023 9:03pm Note Date/Time February 19, 2023 7:0 6pm [facility] Medical Records Department [address] [place] [address] Emergency Department Summary 02/19/23 MR#: [id number] Acct: [id number] Name: CHANDANA RAYMUNDO Rep #:[id number] : [...] 78.7 H Lymph % (Auto) 12.2 L [place] % (Auto) 6.6 Eos % (Auto) 1.5 [...] Referrals: Basilio Dietz DO [Med Staff - Business Office Representative] - 3-5 Days Care Physician,No Primary [Primary Care Provider] - Disposition Disposition: Home, Self Care What to do if you have Problems For any increased pain, shortness of breath, bleeding, nausea or vomiting, chestpain, or any unexpected problems, contact your Primary Care Provider. Call [facility] ([phone]) or report to the closest Emergency Room. Call 911 if necessary. 02/19/232102 <Electronically signed by Ryley Ann DO> Cosigner Signature (if applicable): CC: No Primary Care Physician ~ Signed [facility] Work Phone: Discharge summary Author Sung Maloney [facility] Note Date/Time April 21, 2025 11:0 6am [facility] Medical Records Department [address] [place] [address] Emergency Department Summary 04/21/25 MR#: [id number] Acct: [id number] Name: CHANDANA RAYMUNDO Rep #:[id number] : [...] symptoms. No history of DVT or PE. [facility] Medical History (Updated 04/21/25 @ 11:03 [...] my interpretation and according to the ultrasound porcelain technician, the DVT scan is negative. These medications [...] is planning on following up at the [facility]. I reinforced the importance of following up [...] 87.3 H Lymph % (Auto) 7.0 L [place] % (Auto) 5.0 Eos % (Auto) 0.2 [...] 08:22 IMPRESSION: NEGATIVE ANKLE SERIES Reading Location: [facility] Discharge Plan Triage Chief Complaint: [...] return to the ER immediately. Print Language: Sami Disposition Disposition: Home, Self Care What to do if you have Problems For any increased pain, shortness of breath, bleeding, nausea or vomiting, chestpain, or any unexpected problems, contact your Primary Care Provider. Call [facility] ([phone]) or report to the closest Emergency Room. Call 911 if necessary. 04/21/25 1106 <Electronically signed by Sung Maloney MD> Cosigner Signature (if applicable): CC: Irma Roque, ; No Primary Care Physician ~ Signed [facility] Work Phone: Evaluation noteNo assessment information available [facility] Work Phone: Evaluation note* Diagnosis Chest pain, unspecified type- Primary Bloody stool Blood in stool [facility]-19- Primary Hypertension, unspecified type [facility] Diagnosis Gouty arthritis of right great toe- Primary [facility] Dis[facility] instructions Additional Instructions Your blood pressure reading is elevated today. It is very important that you follow-up to have this rechecked. Even if you feel fine, you need to have your blood pressure checked and maybe managed.[facility] Work Phone: Hospital Discharge instructions Additional Instructions Thank you for trusting us with your care today! Please take Tylenol (2 pills, 650 mg), ibuprofen (2 pills, 400 mg) every 6 hours as needed for pain and fever control. Please return to the emergency department if your symptoms change or worsen. Please follow with your primary care physician for further outpatient evaluation and management.[facility] Work Phone: Hospital Discharge instructions Additional Instructions 1. 2 puffs of inhaler every 2-4 hours while awake for the next 3 to 5 days and every 4-6 hours for shortness of breath or wheezing 2. Because you smoke you may have a cough up to 1 month. 3. Your blood pressure readings are elevated. [facility] Work [facility]: Hospital Discharge instructions Additional Instructions Practice good hygiene, keep your skin clean and dry, use an antibacterial soap to wash when you shower. Follow-up with the clinic I referred you to if no improvement. Return for any worsening symptoms.[facility] Work Phone: Hospital Discharge instructionsAdditional Instructions If the steroids make your ankle worse or you develop a fever, stop them and return to the ER immediately.[facility] Work Phone: Summary Purpose Family History [...] No April 19, 2022 1:01pm Power of Telemarketing Representative No April 19 1:01pm Advance Directive Response Recorded Date/ Time Advance Directives No November 04, 2016 12:07am Living Will No February 19, 2023 5:49pm Power of Telemarketing Representative No February 19 5:49pm Advance Directive Response Recorded Date/ Time Advance Directives No November 04, 2016 12:07am Living Will No March 08, 2023 1 2:39pm Power of Telemarketing Representative No March 08, 2023 12:39pm Advance Directive Response Recorded Date/ Time Advance Directives No November 04, 2016 12:07am Living Will No May 25, 2023 11:19am Power of Telemarketing Representative No May 25 11:19am Advance Directive Response Recorded Date/ Time Advance Directives No November 03, 2016 11:07pm Living Will No October 12, 2 023 7:28pm Power of Telemarketing Representative No October 12, 2023 7:28pm Advance Directive Response Recorded Date/ Time Living Will No December 06, 2 025 3:56am Do you have a Healthcare Power of Telemarketing Representative? No December 06, 2024 3:56am Living Will No December 22, 2 025 3:13pm Do you have a Healthcare Power of Telemarketing Representative? No December 22, 2024 3:13pm Do you have a Healthcare Power of Telemarketing Representative? No March 30, 2025 1:08pm Advance Directives No November 04, 2016 12:07am Advance Directive Response Recorded Date/ Time Living Will No December 22, 2 025 3:13pm Do you have a Healthcare Power of Telemarketing Representative? No December 22, 2024 3:13pm Do you have a Healthcare Power of Telemarketing Representative? No April 16, 2025 6:09pm Do you have a Healthcare Power of Telemarketing Representative? No March 30, 2025 1:08pm Advance Directives No November 04, 2016 12:07am Advance Directive Response Recorded Date/ Time Living Will No December 22, 2 025 3:13pm Do you have a Healthcare Power of Telemarketing Representative? No December 22, 2024 3:13pm Do you have a Healthcare Power of Telemarketing Representative? No April 16, 2025 6:09pm Do you have a Healthcare Power of Telemarketing Representative? No April 21, 2025 7:54am Do you have a Healthcare Power of Telemarketing Representative? No March 30, 2025 1:08pm Advance Directives [...] section and content) DATE CREATED AUTHOR 04/16/2018 [facility] ([place]) DATE CREATED AUTHOR AUTHOR'S ORGANIZ ATION 08/01/2021 [facility] DATE CREATED AUTHOR AUTHOR'S ORGANIZ ATION 03/12/2024 [facility] DATE CREATED AUTHOR AUTHOR'S ORGANIZ ATION 11/05/2024 [facility] DATE CREATED AUTHOR AUTHOR'S ORGANIZ ATION 04/27/2025 [facility] Goals (unrecognized section and content) Goals may [...] or prosecute any alcohol or drug abuse patient.[facility] the event this information is protected by the Federal Confidentiality of Alcohol and Drug Abuse Patient Records regulations: The Federal rules restrict any use of the information to criminally investigate or prosecute any alcohol or drug abuse patient.[facility] the event this information is protected by the Federal Confidentiality of Alcohol and Drug Abuse Patient Records regulations: The Federal rules restrict any use of the information to criminally investigate or prosecute any alcohol or drug abuse patient.[facility] Reason for Visit (unrecogniz ed section [...] Procedures EST SAME DAY Self Express [facility] [address] [place] [address] Referral ID Status Reason Start Date Expiration Date Visits Requested Visits Authorized [id number] Pending Review Financial Clearance Required - Self [...] BE BASED ON THE PRIMARY CLINICAL RECORDS. [employer] [facility]. provides no warranty or guarantee of the accuracy or completeness of information in this document.
--- NOTE | 2025-04-28 15:00 | RAD_ITS ---
EXAM: XR Left Ankle Complete, 3 or More Views CLINICAL INDICATION: PAIN TECHNIQUE: Frontal, lateral and oblique views of the left ankle. COMPARISON: No relevant prior studies available. FINDINGS: BONES/JOINTS: See below. SOFT TISSUES: Soft tissue swelling without acute fracture. RAD/Ankle min 3 Views IMPRESSION: 1. Soft tissue swelling without acute fracture. 2. If symptoms persist, further evaluation with CT is recommended. Reading Location: [id number]
--- NOTE | 2025-04-28 15:00 | RAD_ITS ---
EXAM: XR Left Ankle Complete, 3 or More Views CLINICAL INDICATION: PAIN TECHNIQUE: Frontal, lateral and oblique views of the left ankle. COMPARISON: No relevant prior studies available. FINDINGS: BONES/JOINTS: See below. SOFT TISSUES: Soft tissue swelling without acute fracture. RAD/Ankle min 3 Views IMPRESSION: 1. Soft tissue swelling without acute fracture. 2. If symptoms persist, further evaluation with CT is recommended. Reading Location: [id number]
[2025-04-28 16:05] VITALS: BP 133/90; PULSE 98; RESP 16; TEMP 36.8; O2SAT 99
== END 2025-04-28 16:06 | disposition home or self-care (01) ==
PROVIDERS: Emergency Provider Emergency Medicine; Visit Provider Emergency Medicine
DX: S93.402A Sprain of unspecified ligament of left ankle, initial encounter (principal); F17.210 Nicotine dependence, cigarettes, uncomplicated; Y93.67 Activity, basketball; Z79.51 Long term (current) use of inhaled steroids; Z79.899 Other long term (current) drug therapy; Z59.00 Homelessness unspecified
CPT/HCPCS: 73610; 73630; 99283

== ENCOUNTER 2025-09-15 21:01 | Emergency (ER) | payer SELFPAY ==
[2025-09-15 21:02] VITALS: PULSE 78; RESP 18; TEMP 36.4; O2SAT 100; BMI 45.3
--- NOTE | 2025-09-15 21:14 | RAD_ITS ---
PROCEDURE: FOOT MIN 3 VIEWS 09/15/2025 REASON FOR EXAM: PAIN, LIMITED ROM TECHNIQUE: Procedure Code: RADFO Modality: DX Procedure: FOOT MIN 3 VIEWS Laterality: Right COMPARISON: None. FINDINGS: No acute fracture or dislocation. Alignment is anatomic. Mild arthrosis of the 1st MTP joint. Preserved remaining visualized joint spaces without evidence for erosion or significant arthrosis. No appreciable soft tissue swelling or unusual mineralization. RAD/Foot min 3 Views IMPRESSION: No acute or aggressive osseous abnormality. Mild arthrosis of the 1st MTP joint without any erosive changes. Reading Location: [id number]
--- NOTE | 2025-09-15 22:42 | EX.ED.DYSGE1 ---
HPI History of Present Illness Chief Complaint: Lower Extremity Injury Informant: patient Narrative Narrative: Patient is a 29-year-old male with past ministry of chronic kidney disease and gout. He states over the last 2 days he has had increased pain redness and swelling along the right great toe region of the foot. He denies any trauma. He states initially the pain was bearable and he was using [id number] medication to help with symptoms. However he states that today while at work the pain was severe that he could not stand anymore and had to leave work early. Therefore with worsening symptoms he presents for evaluation. Patient denies any trauma or excessive activity prior to the pain beginning [facility] Medical History (Updated 09/16/25 @ 04:[address] Tanmay Santos DO) Gout History of substance abuse Asthma Kidney disease Liver abscess Asthma attack Home Medications ?Medication ?Instructions ?Recorded ?Last Taken ?Type albuterol sulfate 90 mcg/actuation 2 puff inhalation Q4H PRN PRN 03/30/25 Unknown Rx aerosol inhaler (Ventolin HFA) Wheezing ##1 amlodipine 10 mg tablet 10 mg PO DAILY #30 tabs 04/21/25 Unknown Rx hydrocodone-acetaminophen 5-325mg 1 tab PO Q4H PRN PRN Pain 2 days 04/21/25 Unknown Rx 5mg-325mg #10 TABLETS prednisone 10 mg tablet 10 mg PO UD #30 tabs 04/21/25 Unknown Rx hydrocodone-acetaminophen 5-325mg 1 tab PO Q6H PRN PRN Pain 3 days 04/28/25 Unknown Rx 5mg-325mg #10 TABLETS oxycodone-acetaminophen 5 mg-325 1 tab PO Q6H PRN pain 3 days #12 09/15/25 Unknown Rx mg tablet (Percocet) tabs prednisone 10 mg tablet See Rx Instructions .Route 09/15/25 Unknown Rx .COMPLEX #28 tabs Allergy/AdvReac Type Severity Reaction Status Date / Time amoxicillin Allergy Hives Verified 09/15/25 21:02 Penicillins Allergy Hives Verified 09/15/25 21:02 Surgical History Hx of appendectomy Social History household members: spouse, children and none housing: homeless current occupational status: employed and unemployed Smoking Status: Current every day smoker tobacco type: cigarettes ROS ROS ED Constitutional Constitutional ED: Denies chills or fever(s) ENT ENT ED: Denies sore throat Cardiovascular Cardiovascular: Denies chest pain Respiratory/Chest Respiratory/Chest: Denies cough or dyspnea Musculoskeletal Musculoskeletal: Reports other Details: Positive right foot pain Integumentary Reports other Details: Positive redness and swelling right foot Neurologic Neurologic: Denies headache(s) Hematologic/Lymphatic Hematologic/Lymphatic: Denies easy bleeding or easy bruising Allergic/Immunologic Allergic/Immunologic ED: Denies urticaria EXAM Physical Exam Const Vital Signs: 09/15/25 21:02 Temperature 97.5 F L Temperature Source Temporal Pulse Rate 78 Respiratory Rate 18 Pulse Ox 100 Oxygen Delivery Method Room Air Positive well nourished, well developed and obese General Appearance ED: well developed Nutritional Appearance: obese HEENT HEENT Narrative: Normocephalic atraumatic Eyes PERRL and EOMs intact bilaterally General Eye ED: Negative for scleral icterus Neck supple Resp normal respiratory effort and clear to auscultation bilaterally Cardio regular rate and regular rhythm Extremity Extremity Narrative: Right lower extremity is neurovascularly intact. Patient has asymmetric soft tissue swelling and erythema with faint asymmetric warmth along the MTP region of the great toe. No lymphangitic streaking noted. No obvious abscess formation present. No crepitance palpated. No ulcer or lesion noted. There is pain with palpation over top of the area of skin discoloration Remainder of the exam is normal Neuro oriented x3, CN's II-XII intact bilaterally and no sensory deficits noted Sensorium / Orientation: alert Motor Exam: strength 5/5 throughout Psych mental status grossly normal Skin Skin Narrative: Soft tissue changes to the right foot at the first MTP as documented above MDM MDM MDM Narrative Medical decision making narrative: Patient arrived to the ER with report of right foot mainly pain in the great toe without trauma. With his reported history of gout and the fact he has got redness and swelling and asymmetric warmth along the great toe region this would most correlate with an acute gout flare. An x-ray was obtained to ensure there is no retained foreign body or acute fracture or dislocation or signs of osteomyelitis. X-ray revealed no acute findings indicating patient's symptoms are most likely related to gout. Therefore do not feel the need for blood work or further imaging at this time. The patient will be treated with prednisone which he has taken in the past to help with gout flares and is otherwise safe for discharge History & Record Review Discussion w/independent historian: Patient Radiography Diagnostic Testing: Clinical Impression(s) from Imaging Studies Foot X-Ray 09/15/25 21:14 IMPRESSION: No acute or aggressive osseous abnormality. Mild arthrosis of the 1st MTP joint without any erosive changes. Reading Location: [facility] Right foot x-ray as interpreted by the emergency medicine physician reveals no acute fracture dislocation retained foreign body free air or moth-eaten appearance of the bones to suggest osteomyelitis Discharge Plan Triage Chief Complaint: Lower Extremity Injury ED Provider: Tanmay Santos Dx/Rx/DC Orders Clinical Impression: Gout attack, Chronic kidney disease Instructions: ED Gout, ED Gout Diet Prescriptions: New prednisone 10 mg tablet See Rx Instructions .ROUTE .COMPLEX Qty: 28 0RF Rx Instructions: 7 pills po day 1, 6 pills po day 2, 5 pills po day 3, 4 pills po day 4, 3 pills po day 5, 2 pills po day 6, 1 pill po day 7 oxycodone-acetaminophen [Percocet] 5-325 mg tablet 1 tab PO Q6H PRN (Reason: pain) 3 Days Qty: 12 0RF No Action hydrocodone-acetaminophen 5-325 mg tablet 1 tab PO Q4H PRN PRN (Reason: Pain) 2 Days Qty: 10 0RF prednisone 10 mg tablet 10 mg PO UD Qty: 30 0RF Rx Instructions: Take 4 tablets daily for 3 days, then 3 daily for 3 days, then 2 daily for 3 days, then 1 a day for 3 days amlodipine 10 mg tablet 10 mg PO DAILY Qty: 30 0RF hydrocodone-acetaminophen 5-325 mg tablet 1 tab PO Q6H PRN PRN (Reason: Pain) 3 Days Qty: 10 0RF albuterol sulfate [Ventolin HFA] 90 mcg/actuation HFA aerosol inhaler 2 puff inhalation Q4H PRN PRN (Reason: Wheezing) Qty: 1 0RF Rx Instructions: dispense with spacer Stand Alone Forms: ED Work / School Excuse Primary Care Provider: Care Physician,No Primary Referrals: Care Physician,No Primary [Primary Care Provider, Medical] Activity Restrictions/Additional Instructions: Your history and exam is consistent with a gout flare/attack. Take the prescribed medication as directed to resolve the inflammation and pain. It would typically take 2 to 3 days for the medication to take effect. If you do not have improvement by Thursday or you feel like symptoms are worsening such as spreading of the redness or worsening pain or development of fever and return to the ER for repeat evaluation. Print Language: Scottish Disposition Disposition: Home, Self Care Discharge Date/Time: 09/15/25 23:05
--- OUTSIDE RECORDS SUMMARY | 2025-09-15 22:52 | XMS RPT_ITS | CCD ---
Author Organization [facility] ion Partnership [facility] Care Team Providers Care Managing Partner [employer] Name Role Phone PHYSICIAN, NONE Unavailable Unavailable JJ, VU Unavailable Unavailable [facility] Unavailable Unavai lable ANDBENOIT DO Admitting Unavailable AA NO PCP, NO PCP Primary Care Unavailable ANDESSHONDAIN Attending Unavailable MERCER, VALERIY E Attending Unavailable MERCER, VALERIY E Admitting Unavailable AA NO PCP, NO PCP Primary Care Unavailable Unavailable Primary Care Provider Unavailabl e Unavailable Primary Care Provider Unavailabl e NO FAMILY PHYSICIAN, 837 Primary Care Unavail able [employer] TECHNICAL SUPPORT CONSULTANT, KAILYN Attending Unavailable MÓNICA SERRANO MD Admitting [...] No Primary Primary Care Provider Unavailable Dr. Sung Maloney MD Attending Provider Elijah MAXWELL, Dr. Keith Pierre Attending Provider Dr. Sung Maloney MD Referring Provider Dr. Tha Brooks DO Emergency Provider Sung Maloney Attending Unavailable Care Physician, No Primary Primary Care Unava ilable Provider, Ed Physician Attending Unavailab le Care Physician, No Primary Primary Care Unava ilable Tha Brooks Attending Unavailable Care Physician, No Primary Primary Care Unava ilable Chandana Huang Attending Unavailable Care Physician, No Primary Primary Care Unava ilable Ryan Crump Attending Unavailable Ryan Crump Referring Unavailable Care Physician, No Primary Primary Care Unava ilable Cruz Duarte Attending Unavailable Cruz Duarte Referring Unavailable Care Physician, No Primary Primary Care Unava ilable Mercer, Valeriy Attending Unavailable Care Physician, No Primary Primary Care Unava ilable Allergies Allergy Classification Reported Allergen(s) Allergy Type Date of Onset Reaction(s) Facility (3 sources) Penicillins; Translations: [PENICILLINS] Drug allergy (disorder) 08-19-2015 [facility] Repository (9 sources) Amoxicillin Drug Allergy 04-19-2022 [facility] (8 sources) Penicillins Allergy to substance 02-19-2023 [facility] (3 sources) Penicillins Drug Allergy 08-19-2015 [facility] (1 source) Amoxicillin Drug Allergy 04-28-2025 [facility] Repository (1 source) Penicillins Drug allergy (disorder) 04-28-2025 [facility] Repository Medications Current Medications Medication Drug Class(es) Dates Sig (Normalized) Sig (Original) acetaminophen 325 mg / HYDROcodone bitartrate 5 mg oral tablet (5 sources) Opioid Agonist Start: 04-28-2025 take 1 tablet by mouth every six hours as needed for pain Hydrocodone-Acetam inophen 5-325 mg tablet Active 1 {tbl} PO EVERY 6 HOURS NEEDED as needed for Pain 10 3 0 April 28, 2025 Sprain of left ankle Sprain of unspecified ligament of left ankle, initial encounter Start: 04-21-2025 take 1 tablet by tianna th every four hours as needed for pain Hydrocodone-Acetaminophen 5-325 mg table t Active 1 {tbl} PO EVERY 4 HOURS NEEDED as needed for Pain 10 2 0 April 21, 2025 Gouty arthritis of right ankle Gout, unspecified Start: 04-19-2022 take 1 tablet by tianna th every six hours Hydrocodone-Acetaminophen Active 1 TABLE T PO EVERY 6 HOURS 10 April 19, 2022 [id number] 200 actuat albuterol 0.09 mg/actuat metered dose inhaler (13 sources) beta2-Adrenergic Agonist Start: 03-30-2025 Albut ulysses Sulfate (Ventolin Hfa) 90 mcg/actuation HFA aerosol inhaler Active 2 NMA INHALATION EVERY 4 HOURS NEEDED as needed for Wheezing 1 March 30, 2025 12:00am dispense with spacer Start: 09-02-2022 End: 10-12-2023 Albuterol Sulfate (Ventolin Hfa) 1 INHALER inhaler Discontinued 1 - 2 NMA INHALATION EVERY 4 HOURS NEEDED as needed for Wheezing 1 September 02, 2022 1:00am October 12, 2023 8:28pm Start: 09-02-2022 End: 10-12-2023 take 1 puff(s) by inhalation every four hours as needed Albuterol Sulfate (Ventolin Hfa) 1 INHALER inhaler Discontinued 1 - 2 PUFF INHALATION EVERY 4 HOURS NEEDED September 02, 2022 12:00am October 12, 2023 7:28pm amLODIPine 10 mg oral tablet (2 sources) Dihydropyridine Calcium Channel Lacy Start: 04-21-2025 take 1 tablet by mouth once daily Amlodipine 10 mg tablet Active 10 mg PO DAILY April 21, 2025 12:00am amphetamine aspartate 7.5 [...] once daily. predniSONE 10 mg oral tablet (19 sources) Start: 04-21-2025 take 4 tablets by mouth once daily, then take 3 tablets by mouth once daily, then take 2 tablets by mouth once daily, then take 1 tablet by mouth once daily Prednisone 10 mg tablet Active 10 mg PO DIRECTED April 21, 2025 12:00am Take 4 tablets [...] (Original) dicyclomine hydrochloride 20 mg oral tablet (4 sources) Anticholinergic Start: 12-06-2024 End: 04-21-2025 take 1 tablet by mouth three times daily Dicyclomine 20 mg tablet Discontinued 20 mg PO THREE TIMES A DAY 20 0 December 06, 2024 1:00am April 21, 2025 7:53am doxycycline hyclate 100 mg oral capsule (3 sources) Tetracycline-class Drug Start: 04-16-2025 End: 04-21-2025 take 1 capsule by mouth twice daily Doxycycline Hyclate 100 mg capsule Discontinued 100 mg PO TWICE A DAY 10 0 April 16, 2025 12:00am April 21, 2025 7:53am ondansetron 4 mg disintegrating oral tablet (7 sources) Serotonin-3 Receptor Antagonist Start: 12-06-2024 End: 04-21-2025 take 1 tablet by mouth every six hours as needed for nausea and vomiting Ondansetron 4 mg tablet,disintegra ting Discontinued 4 mg PO EVERY 6 HOURS as needed for nausea and vomiting 20 0 December 06, 2024 1:00am April 21, 2025 [...] 07-31-2021 Episodic Appendicitis and other appendiceal conditions (9 sources) Appendicitis; Translations: [Unspecified appendicitis] 12-03-2015 Episodic Asthma (9 sources) Exacerbation of asthma; Translations: [Unspecified asthma with (acute) exacerbation] 10-31-2021 Chronic Chronic kidney disease (11 sources) Chronic renal failure; Translations: [Chronic renal failure, stage 3 (moderate)] 04-19-2022 Chronic Diseases of white blood cells (9 sources) Leukocytosis; Translations: [Elevated white blood cell count, unspecified] 12-03-2015 Chronic Essential hypertension (3 sources) Hypertensive disorder; Translations: [Essential (primary) hypertension] 10-20-2023 Chronic Gastrointestinal hemorrhage (10 sources) Rectal hemorrhage; Translations: [Hemorrhage of anus and rectum] 12-12-2021 Episodic Gout and other crystal arthropathies (17 sources) Gout, unspecified; Translations: [Gouty arthritis of right foot] Onset: 07-31-2021 04-27-2022 Chronic Immunizations and screening for infectious disease (9 sources) Suspected disease caused by 2019-nCoV; Translations: [Suspected COVID-19 virus infection] 10-31-2021 Episodic Nonspecific chest pain (17 sources) Chest pain; Translations: [Chest pain, unspecified] 12-19-2021 Episodic Other aftercare (1 source) long term care pharmacist (current) use of systemic steroids; Translations: [LONGTERM USE OF SYSTEMIC STEROIDS] Onset: 07-31-2021 Episodic Other circulatory disease (9 sources) Elevated blood pressure; Translations: [Elevated blood-pressure reading, without diagnosis of hypertension] 04-27-2022 Episodic Other circulatory disease (5 sources) Elevated blood-pressure reading without diagnosis of hypertension; Translations: [Elevated blood-pressure reading, without diagnosis of hypertension] 10-12-2023 Episodic Other connective tissue disease (1 source) Pain in right toe(s); Translations: [PAIN IN RIGHT TOES] Onset: 06-04-2021 Episodic Other connective tissue disease (10 sources) Foot pain; Translations: [Pain in left foot] 05-25-2023 Episodic Other injuries and conditions due to external causes (1 source) Unspecified injury of right foot, initial encounter; Translations: [UNSPECIFIED INJURY RT FOOT INITIAL] Onset: 07-31-2021 Episodic Other lower respiratory disease (9 sources) Wheezing; Translations: [Wheezing] 09-02-2022 Episodic Other lower respiratory disease (9 sources) Chronic cough; Translations: [Chronic cough] 12-19-2021 Episodic Other lower respiratory disease (12 sources) Dyspnea; Translations: [Dyspnea, unspecified] 09-10-2022 Episodic Other skin disorders (3 sources) Folliculitis; Translations: [Follicular disorder, unspecified] 04-16-2025 Episodic Other skin disorders (1 source) Rash and other nonspecific skin eruption; Translations: [Rash and other nonspecific skin eruption] Onset: 08-03-2025 Episodic Other upper respiratory disease (9 sources) Acute bronchospasm; Translations: [Acute bronchospasm] 10-12-2023 Episodic Other upper respiratory infections (14 sources) Viral upper respiratory tract infection; Translations: [Acute upper respiratory infection, unspecified] 11-08-2021 Episodic Pneumonia (except that caused by tuberculosis or sexually transmitted disease) (9 sources) Community acquired pneumonia; Translations: [Pneumonia, unspecified organism] 12-03-2015 Episodic Residual codes; unclassified (9 sources) Tobacco user; Translations: [Tobacco use] 12-19-2021 Episodic Residual codes; unclassified (8 sources) Acquired absence of other specified parts of digestive tract; Translations: [Status post laparoscopic appendectomy] 12-03-2015 Episodic Residual codes; unclassified (5 sources) Tobacco use and exposure - finding; Translations: [Tobacco use] 10-12-2023 Episodic Sprains and strains (1 source) Sprain of left ankle; Translations: [Sprain of unspecified ligament of left ankle, initial encounter] 04-28-2025 Episodic Unclassified (4 sources) or pulmonology Unclassified (4 sources) for primary care Viral infection (1 source) Disease caused by 2019-nCoV; Translations: [COVID-19] 10-20-2023 Episodic Past or Other Problems Problem Classification Problem Date Documented Da te Episodic/Chronic Nausea and vomiting (5 sources) Nausea and vomiting; Translations: [Nausea with vomiting, unspecified] Onset: 12-21-2024 12-14-2024 Episodic Other connective tissue disease (1 source) Pain in left foot; Translations: [Pain in left foot] Onset: 01-05-2025 Episodic Other lower respiratory disease (1 source) Shortness of breath; Translations: [Shortness of breath] Onset: 04-03-2025 Episodic Other non-traumatic joint disorders (1 source) Pain in left ankle and joints of left foot; Translations: [Pain in left ankle and joints of left foot] Onset: 05-03-2025 Episodic Other non-traumatic joint disorders (1 source) Pain in right ankle and joints of right foot; Translations: [Pain in right ankle and joints of right foot] Onset: 04-25-2025 Episodic Results Test Name Value Interpretation Reference Range Facility Ankle min 3 Viewson 04-28-20 Ankle min 3 Views [facility] Imaging Services [address] [place] [address] [id number] Ankle min 3 Views MR#: [id number] Acct: [id number] Name: CHANDANA RAYMUNDO Rep #: [id number] : 1995 M 29 From: Basilio Conway MD PCP: Care Physician,No Primary Status: REG ER Study: Ankle min 3 Views Date of Exam: 04/28/25 Exam# [id number] Ordering Dr: Kyara Segal EXAM: XR Left Ankle Complete, 3 or More Views CLINICAL INDICATION: PAIN TECHNIQUE: Frontal, lateral and oblique views of the left ankle. COMPARISON: No relevant prior studies available. FINDINGS: BONES/JOINTS: See below. SOFT TISSUES: Soft tissue swelling without acute fracture. RAD/Ankle min 3 Views IMPRESSION: 1. Soft tissue swelling without acute fracture. 2. If symptoms persist, further evaluation with CT is recommended. Reading Location: [facility] CC: PRADEEP Monroe; No Primary Care Physician Mechanical Engineering Manager: Signed Normal [facility] Emergency Department Summary on 04-28-2025 Emergency Department Summary [facility] Medical Records Department [address] [place] [address] Emergency Department Summary 04/28/25 MR#: [id number] Acct: [id number] Name: CHANDANA RAYMUNDO Rep #: [id number] : 1995 29 From: Kyara FERNÁNDEZ PCP: Care Physician,No Primary Status:DEP ER Location: ED HPI History of Present Illness Chief Complaint: Lower Extremity Injury Narrative Narrative: 29-year-old male states a few days ago he was playing basketball and jumped to make a shot and then landed on his left foot awkwardly. He developed pain and swelling in the left ankle and foot. He has tried elevating and icing it but the swelling will go down. He states if he ties his shoe really tight we he can walk on it. No weakness or numbness or tingling. [facility] Medical History (Updated 04/28/25 @ 15:44 by PRADEEP Monroe) Gout History of substance abuse Asthma Kidney [...] UD #30 tabs 04/21/25 Unkn own Rx hydrocodone-acetami nophen 5-325mg 1 tab PO Q6H PRN PRN Pain 3 days 04/28/25 Unknown Rx 5mg-325mg #10 TABLETS Allergy/AdvReac Type Severity Reaction Status Date / Time amoxicillin Allergy Hives Verified 04/28/25 13:19 Penicillins Allergy Hives Verified 04/28/25 13:19 Surgical History Hx of appendectomy Social History household members: spouse, children and none housing: homeless current occupational status: employed and unemployed Smoking Status: Current every day smoker tobacco type: cigarettes ROS ROS ED ROS Narrative Neuro: Negative for motor/sensory dysfunction. Skin: Negative for wound. Musc: Positive for left ankle and foot pain, swelling, trauma. EXAM Physical Exam Narrative Exam Narrative: CONST: Patient sitting in no acute distress. EYES: Normal inspection. NECK: Normal inspection. RESP: No respiratory distress, CTAB. CVS: Regular rate and rhythm, no murmur, no gallop. SKIN: Color normal, no rash, warm, dry, intact. EXTREMITIES: Soft tissue swelling of the left lateral ankle and proximal lateral foot. Tender over the proximal 4th and 5th metatarsals without deformity or crepitus. Achilles intact. Normal sensation. 2+ DP pulse. NEURO: Alert and answering questions appropriately. PSYCH: Normal affect. Const Vital Signs: 04/28/25 13:18 04/28/25 16:05 Temperature 98.3 F 98.3 F Temperature Source Oral Pulse Rate 98 98 Respiratory Rate 16 16 Blood Pressure 156/110 H 133/90 H Blood Pressure Mean 125 104 Pulse Ox 99 99 Physical Exam Const Vital Signs: 04/28/25 13:18 04/28/25 16:05 Temperature 98.3 F 98.3 F Temperature Source Oral Pulse Rate 98 98 Respiratory Rate 16 16 Blood Pressure 156/110 H 133/90 H Blood Pressure Mean 125 104 Pulse Ox 99 99 MDM MDM MDM Narrative Medical decision making narrative: Differential includes ankle and foot sprain versus fracture The 29-year-old male injured his left ankle 2 days ago while playing basketball. He has pain and swelling over the lateral ankle and foot. He is especially tender over the proximal foot. Neurovascularly intact. X-rays are negative. He already has crutches and I provided an Aircast. I discussed RICE protocol. He has been taking Tylenol without much relief and cannot take NSAIDs due to CKD. I prescribed a few [place] for breakthrough pain. I provided podiatry follow-up and he was discharged in stable condition. Radiography Diagnostic Testing: Clinical Impression(s) from Imaging Studies Foot X-Ray 04/28/25 14:41 IMPRESSION: 1. Soft tissue swelling without acute fracture. 2. If symptoms persist, further evaluation with CT is recommended. Reading Location: [facility] Ankle X-Ray 04/28/25 15:00 IMPRESSION: 1. Soft tissue swelling without acute fracture. 2. If symptoms persist, further evaluation with CT is recommended. Reading Location: [facility] ED attending interpretation of left ankle shows no fracture or dislocation. ED attending interpretation of left foot shows no fracture or dislocation. MDM Radiography Diagnostic Testing: Clinical Impr (more content not included)... Normal [facility] Foot min 3 Viewson 5 Foot min 3 Views [facility] Imaging Services [address] [place] [address] [id number] Foot min 3 Views MR#: [id number] Acct: [id number] Name: CHANDANA RAYMUNDO Rep #: [id number] : 1995 M 29 From: Basilio Conway MD PCP: Care Physician,No Primary Status: REG ER Study: Foot min 3 Views Date of Exam: 04/28/25 Exam# [id number] Ordering Dr: Kyara Segal EXAM: XR Left Foot Complete, 3 or More Views CLINICAL INDICATION: PAIN TECHNIQUE: Frontal, lateral and oblique views of the left foot. COMPARISON: No relevant prior studies available. FINDINGS: BONES/JOINTS: See below. SOFT TISSUES: Soft tissue swelling without acute fracture. No radiopaque foreign body. RAD/Foot min 3 Views IMPRESSION: 1. Soft tissue swelling without acute fracture. 2. If symptoms persist, further evaluation with CT is recommended. Reading Location: [facility] CC: PRADEEP Monroe; No Primary Care Physician Mechanical Engineering Manager: Signed Normal [facility] Absolute lymphocyte countOrd ered By: Sung Maloney on 04-21-2025 Lymphocytes Auto (Unsp spec) [#/Vol] 1.30 10*3/uL 0.83-4.51 [facility] Absolute neutrophil countOrd ered By: Sung Maloney on 04-21-2025 Neutrophils (Bld) [#/Vol] 16.2 10*3/uL High 2.0-7.7 [facility] Anion gap in Serum or Plasma Ordered By: Sung Maloney on 04-21-2025 Anion gap [Moles/Vol] 12 mmol/L 5- [facility] Ankle min 3 Viewson 04-21-20 25 Ankle min 3 Views [facility] Imaging Services [address] [place] [address] Ankle min 3 Views MR#: [id number] Acct: [id number] Name: CHANDANA RAYMUNDO Rep #: [id number] : 1995 M 29 From: Fawad dixon MD PCP: Care Physician,No Primary Status: REG ER Study: Ankle min 3 Views Date of Exam: 04/21/25 Exam# [id number] Ordering Dr: Sung Maloney MD PROCEDURE: ANKLE MIN 3 VIEWS 04/21/2025 REASON FOR EXAM: PAIN TECHNIQUE: ANKLE MIN 3 VIEWS COMPARISON: None FINDINGS: Bones: No fracture seen. Joints: Normal alignment. Mortise appears intact. No effusion. Soft tissues: Soft tissues are unremarkable. Other: RAD/Ankle min 3 Views IMPRESSION: NEGATIVE ANKLE SERIES Reading Location: [id number] CC: Dr. Sung Maloney MD; No Primary Care Physician Mechanical Engineering Manager: Signed Normal [facility] Automated lymphocyte count a s percentage of total leukocytesOrdered By: Sung Maloney on 04-21-2025 Lymphocytes/100 WBC Auto (Unsp spec) 7.0 % Low 19-41 [facility] BUN/creatinine ratioOrdered By: Sung Maloney on 04-21-2025 Urea nitrogen/Creatinine [Mass ratio] 8.4 mg/mg Low 10-20 [facility] Basic Metabolic Profile (BMP )on 04-21-2025 BUN/CRE 8.4 RATIO Low 10- [facility] Comment on above: Performed By: #### L 501.1400, L501.6710, L100.0100, L500.2500, L101.9900 #### [facility] Laboratory [address] [place], [address] Calcium [Mass/Vol] 9.1 mg/dL Normal 7.6-11.0 [facility] Comment on above: Performed By: #### L 501.1400, L501.6710, L100.0100, L500.2500, L101.9900 #### [facility] [address] [place], [address] Chloride [Moles/Vol] 105 mmol/L Normal 98-108 [facility] Comment on above: Performed By: #### L 501.1400, L501.6710, L100.0100, L500.2500, L101.9900 #### [facility] [address] [place], [address] CO2 [Moles/Vol] 21.1 mmol/L Normal 21.0-32.0 [facility] Comment on above: Performed By: #### L 501.1400, L501.6710, L100.0100, L500.2500, L101.9900 #### [facility] [address] [place], [address] Creatinine [Mass/Vol] 2.10 mg/dL High 0.70-1.[address] [facility] Comment on above: Performed By: #### L 501.1400, L501.6710, L100.0100, L500.2500, L101.9900 #### [facility] [address] [place], [address] ECRCL 72.09 ml/min Normal 50-250 [facility] Comment on above: Performed By: #### L 501.1400, L501.6710, L100.0100, L500.2500, L101.9900 #### [facility] [address] [place], [address] GAP 12 Normal 5-15 [facility] Comment on above: Performed By: #### L 501.1400, L501.6710, L100.0100, L500.2500, L101.9900 #### [facility] [address] [place], [address] GFR/1.73 sq M.predicted among non-blacks MDRD (S/P/Bld) [Vol rate/Area] 43 mL/min/{1.73_m2} Low >60 [facility] Comment on above: Result Comment: mL/m in/1.73m2 CKD-EPI Creatinine Equation (2020) Performed By: #### L 501.1400, L501.6710, L100.0100, L500.2500, L101.9900 #### [facility] [address] [place], [address] Glucose [Mass/Vol] 104 mg/dL High 70-99 [facility] Comment on above: Performed By: #### L 501.1400, L501.6710, L100.0100, L500.2500, L101.9900 #### [facility] [address] [place], [address] Potassium [Moles/Vol] 4.1 mmol/L Normal 3.3-5.[address] [facility] Comment on above: Result Comment: Hemo lysis present, Results??could be affected. ?? Performed By: #### L 501.1400, L501.6710, L100.0100, L500.2500, L101.9900 #### [facility] [address] [place], [address] Sodium [Moles/Vol] 137 mmol/L Normal 133-145 [facility] Comment on above: Performed By: #### L 501.1400, L501.6710, L100.0100, L500.2500, L101.9900 #### [facility] [address] [place], [address] Urea nitrogen [Mass/Vol] 18 mg/dL Normal 4-19 [facility] Comment on above: Performed By: #### L 501.1400, L501.6710, L100.0100, L500.2500, L101.9900 #### [facility] [address] [place], [address] Basophil percentageOrdered B y: Sung Maloney on 04-21-2025 Basophils/100 WBC (Bld) 0.2 % 0-1 [facility] CBC W/Diff, Automatedon 03-27 Absolute Lymph 1.30 X10 3/uL Normal 0.83-4.51 [facility] Comment on above: Performed By: #### L 501.1400, L501.6710, L100.0100, L500.2500, L101.9900 #### [facility] [address] [place], [address] Absolute Neut 16.2 X10 3/uL High 2.0-7.7 [facility] Comment on above: Performed By: #### L 501.1400, L501.6710, L100.0100, L500.2500, L101.9900 #### [facility] [address] [place], [address] Basophils/100 WBC (Bld) 0.2 % Normal 0-1 [facility] Comment on above: Performed By: #### L 501.1400, L501.6710, L100.0100, L500.2500, L101.9900 #### [facility] [address] [place], [address] Eosinophils/100 WBC (Bld) 0.2 % Normal 0-5 [facility] Comment on above: Performed By: #### L 501.1400, L501.6710, L100.0100, L500.2500, L101.9900 #### [facility] [address] [place], [address] Erythrocyte distribution width (RBC) [Ratio] 12.0 % Normal 11.6-14.6 [facility] Comment on above: Performed By: #### L 501.1400, L501.6710, L100.0100, L500.2500, L101.9900 #### [facility] [address] [place], [address] Hematocrit (Bld) [Volume fraction] 46.1 % Normal 40-54 [facility] Comment on above: Performed By: #### L 501.1400, L501.6710, L100.0100, L500.2500, L101.9900 #### [facility] [address] [place], [address] Hemoglobin (Bld) [Mass/Vol] 16.3 g/dL Normal 13.0-16.5 [facility] Comment on above: Performed By: #### L 501.1400, L501.6710, L100.0100, L500.2500, L101.9900 #### [facility] [address] [place], [address] IG% 0.300 Normal 0.0-0.9 [facility] Comment on above: Result Comment: IG% - Immature Granulocytes (promyelocytes, myelocytes and metamyelocytes) > 1% indicates that a LEFT SHIFT is Present. Performed By: #### L 501.1400, L501.6710, L100.0100, L500.2500, L101.9900 #### [facility] [address] [place], [address] Lymphocytes/100 WBC (Bld) 7.0 % Low 19-41 [facility] Comment on above: Performed By: #### L 501.1400, L501.6710, L100.0100, L500.2500, L101.9900 #### [facility] [address] [place], [address] MCH (RBC) [Entitic mass] 32.7 pg High 27.0-32.0 [facility] Comment on above: Performed By: #### L 501.1400, L501.6710, L100.0100, L500.2500, L101.9900 #### [facility] [address] [place], [address] MCHC (RBC) [Mass/Vol] 35.4 g/dL Normal 32-[address] [facility] Comment on above: Performed By: #### L 501.1400, L501.6710, L100.0100, L500.2500, L101.9900 #### [facility] [address] [place], [address] MCV (RBC) [Entitic vol] 92.6 fL Normal 80-94 [facility] Comment on above: Performed By: #### L 501.1400, L501.6710, L100.0100, L500.2500, L101.9900 #### [facility] [address] [place], [address] Monocytes/100 WBC (Bld) 5.0 % Normal 0-10 [facility] Comment on above: Performed By: #### L 501.1400, L501.6710, L100.0100, L500.2500, L101.9900 #### [facility] [address] [place], [address] Neutrophils/100 WBC (Bld) 87.3 % High 47-70 [facility] Comment on above: Performed By: #### L 501.1400, L501.6710, L100.0100, L500.2500, L101.9900 #### [facility] [address] [place], [address] Nucleated RBC (Bld) [#/Vol] 0 10*3/uL Normal 0-5 [facility] Comment on above: Performed By: #### L 501.1400, L501.6710, L100.0100, L500.2500, L101.9900 #### [facility] [address] [place], [address] Platelet mean volume (Bld) [Entitic vol] 10.0 fL Normal 6.2-12.0 [facility] Comment on above: Performed By: #### L 501.1400, L501.6710, L100.0100, L500.2500, L101.9900 #### [facility] [address] [place], [address] Platelets (Bld) [#/Vol] 237 10*3/uL Normal 150-450 [facility] Comment on above: Performed By: #### L 501.1400, L501.6710, L100.0100, L500.2500, L101.9900 #### [facility] [address] [place], [address] RBC (Bld) [#/Vol] 4.98 10*6/uL Normal 4.6-6.2 [facility] Comment on above: Performed By: #### L 501.1400, L501.6710, L100.0100, L500.2500, L101.9900 #### [facility] [address] [place], [address] RDW SD 41.1 fl Normal 35.1-43.9 [facility] Comment on above: Performed By: #### L 501.1400, L501.6710, L100.0100, L500.2500, L101.9900 #### [facility] [address] [place], [address] WBC (Bld) [#/Vol] 18.5 10*3/uL High 4.4-11.0 [facility] Comment on above: Performed By: #### L 501.1400, L501.6710, L100.0100, L500.2500, L101.9900 #### [facility] [address] [place], [address] CRPon 04-21-2025 C-REACTIVE PROT 4.76 mg/L High 0.0-3.0 [facility] Comment on above: Performed By: #### M 100.678 #### [facility] [address] [place], [address] Carbon dioxide, total [Moles /volume] in Central venous bloodOrdered By: Sung Maloney on 04-21-2025 CO2 [Moles/Vol] 21.1 mmol/L 21.0-32.0 [facility] Chloride assayOrdered By: Angy Maloney on 04-21-2025 Chloride [Moles/Vol] 105 mmol/L 98-108 [facility] Emergency Department Summary on 04-21-2025 Emergency Department Summary [facility] Medical Records Department [address] [place] [address] Emergency Department Summary 04/21/25 MR#: [id number] Acct: [id number] Name: CHANDANA RAYMUNDO Rep #: [id number] : 1995 29 From: Sung Maloney MD [...] symptoms. No history of DVT or PE. [facility] Medical History (Updated 04/21/25 @ 11:03 by [...] it i (more content not included)... Normal [facility] Eosinophil percentageOrdered By: Sung Maloney on 04-21-2025 Eosinophils/100 WBC (Bld) 0.2 % 0-5 [facility] Erythrocyte Sed Rateon 04-21 SED RATE 5 mm/hr Normal 0-20 [facility] Comment on above: Performed By: #### L 501.1400, L501.6710, L100.0100, L500.2500, L101.9900 #### [facility] [address] [place], [place], [address] Erythrocyte distribution wid th ratioOrdered By: Sung Maloney on 04-21-2025 Erythrocyte distribution width (RBC) [Ratio] 12.0 % 11.6-14.6 [facility] Erythrocyte distribution wid th standard deviationOrdered By: Sung Maloney on 04-21-2025 Erythrocyte distribution width (RBC) [Ratio] 41.1 fl 35.1-43.9 [facility] Erythrocyte sedimentation ra teOrdered By: Sung Maloney on 04-21-2025 ESR (Bld) [Velocity] 5 mm/h 0-20 [facility] Glomerular filtration rate ( GFR) estimation/1.73 sq m using serum, plasma, or whole bOrdered By: Sung Maloney on 04-21-2025 GFR/1.73 sq M.predicted among non-blacks MDRD (S/P/Bld) [Vol rate/Area] 43 mL/min/{1.73_m2} Low >60 [facility] Comment on above: mL/min/1.73m2 CKD-EP I Creatinine Equation (2020) Hematocrit Auto (Bld) [Volum e fraction]Ordered By: Sung Maloney on 04-21-2025 Hematocrit (Bld) [Volume fraction] 46.1 % 40-54 [facility] Hemoglobin measurementOrdere d By: Sung Maloney on 04-21-2025 Hemoglobin (Bld) [Mass/Vol] 16.3 g/dL 13.0-16.5 [facility] Immature granulocytes/100 WB C Auto (Bld)Ordered By: Sung Maloney on 04-21-2025 Immature granulocytes/100 WBC (Bld) 0.300 % 0.0-0.9 [facility] Comment on above: IG% - Immature Granu locytes (promyelocytes, myelocytes and metamyelocytes) > 1% indicates that a LEFT SHIFT is Present. MCV (mean corpuscular volume ) determinationOrdered By: Sung Maloney on 04-21-2025 MCV (RBC) [Entitic vol] 92.6 fL 80-94 [facility] Mean corpuscular hemoglobin (MCH) determinationOrdered By: Sung Maloney 04-21-2025 MCH (RBC) [Entitic mass] 32.7 pg High 27.0-32.0 [facility] Mean corpuscular hemoglobin concentration (MCHC) determinationOrdered By: Sung Maloney 04-21-2025 MCHC (RBC) [Mass/Vol] 35.4 g/dL 32-[address] [facility] Mean platelet volume determi nationOrdered By: Sung Maloney on 04-21-2025 Platelet mean volume (Bld) [Entitic vol] 10.0 fL 6.2-12.0 [facility] Monocyte percentageOrdered B y: Sung Maloney on 04-21-2025 Monocytes/100 WBC (Bld) 5.0 % 0-10 [facility] Neutrophil percentageOrdered By: Sung Maloney on 04-21-2025 Neutrophils/100 WBC (Bld) 87.3 % High 47-70 [facility] Nucleated red blood cell per centageOrdered By: Sung Maloney on 04-21-2025 Nucleated RBC/100 WBC (Bld) [Ratio] 0 % 0-5 [facility] Platelet countOrdered By: Angy Maloney on 04-21-2025 Platelets (Bld) [#/Vol] 237 10*3/uL 150-450 [facility] Potassium measurement (mass/ volume)Ordered By: Sung Maloney on 04-21-2025 Potassium (Unsp spec) [Mass/Vol] 4.1 mmol/L 3.3-5.1 [facility] Comment on above: Hemolysis present, R esults could be affected. RBC Auto (Bld) [#/Vol]Ordere d By: Sung Maloney on 04-21-2025 RBC (Bld) [#/Vol] 4.98 10*6/uL 4.6-6.2 [facility] Serum creatinine measurement (mass/volume)Ordered By: Sung Maloney on 04-21-2025 Creatinine [Mass/Vol] 2.10 mg/dL High 0.70-1.[address] [facility] Serum glucose measurement (m ass/volume)Ordered By: Sung Maloney on 04-21-2025 Glucose [Mass/Vol] 104 mg/dL High 70-99 [facility] Serum or plasma C reactive p rotein measurement (mass/volume)Ordered By: Sung Maloney on 04-21-2025 CRP [Mass/Vol] 4.76 mg/L High 0.0-3.0 [facility] Serum or plasma calcium khanh urement (mass/volume)Ordered By: Sung Maloney on 04-21-2025 Calcium [Mass/Vol] 9.1 mg/dL 7.6-11.0 [facility] Serum or plasma urea nitroge n measurement (mass/volume)Ordered By: Sung Maloney on 04-21-2025 Urea nitrogen [Mass/Vol] 18 mg/dL 4-19 [facility] Serum or plasma uric acid me asurement (mass/volume)Ordered By: Sung Maloney on 04-21-2025 Urate [Mass/Vol] 10.8 mg/dL High 3.5-7.2 [facility] Comment on above: The drugs N-Acetylcy steine and Metamizole may falsely depress this assay. Sodium levelOrdered By: Asim Maloney on 04-21-2025 Sodium [Moles/Vol] 137 mmol/L 133-145 [facility] Uric Acidon 04-21-2025 URIC 10.8 mg/dL High 3.5-7.2 [facility] Comment on above: Result Comment: The drugs N-Acetylcysteine and Metamizole may falsely depress this assay. Performed By: #### M 100.678 #### [facility] [address] [place], [address] Venous Duplex US, Unilateral on 04-21-2025 Venous Duplex US, Unilateral [facility] [address] [place] [address] Venous Duplex US, Unilateral 04/21/25 0838 MR#: [id number] Acct: [id number] Name: CHANDANA RAYMUNDO Rep #: [id number] : 1995 29 From: Keith Nava MD [...] Referring Physician: N/A Performed By: Shadi Jackson, Juju 04/21/251920 Date Keith Nava MD CC: Dr. Sung Maloney MD; No Primary Care Physician Date Dictated: 04/21/25837 Date Transcribed: 04/21/251920 Mechanical Engineering Manager: Signed Normal [facility] White blood cell (WBC) count Ordered By: Sung Maloney on 04-21-2025 WBC (Bld) [#/Vol] 18.5 10*3/uL High 4.4-11.0 [facility] Emergency Department Summary on 04-16-2025 Emergency Department Summary [facility] Medical Records Department [address] [place] [address] Emergency Department Summary 04/16/25 MR#: [id number] Acct: [id number] Name: CHANDANA RAYMUNDO Rep #: [id number] : 1995 29 From: Olesya FERNÁNDEZ PCP: [...] He reports that he is healthy otherwise. [facility] Medical History Kidney disease Liver abscess Asthma [...] 98 100 Oxygen Delivery Method Room Air [facility] Narrative Medical decision making narrative: Patient presenting [...] allergy. Encouraged good hygiene with antibacterial soap. forge utility worker did come and give him resources on a PCP referral and prescription assistance given he does not have insurance. Return instructions were discussed and patient discharged home in stable condition. [facility] Narrative Medica (more content not included)... Normal [facility] Chest 1 View (Portable)on Chest 1 View (Portable) [facility] Imaging Services [address] [place] [address] Chest 1 View (Portable) MR#: [id number] Acct: [id number] Name: CHANDANA RAYMUNDO Rep #: [id number] : 1995 M 29 From: Tha Dial MD PCP: Care Physician,No Primary Status: REG ER Study: Chest 1 View (Portable) Date of Exam: 03/30/25 Exam# [id number] Ordering Dr: Cruz Duarte DO PROCEDURE: CHEST [...] 1. No active cardiopulmonary disease. Reading Location: [place] [address] CC: Dr. Cruz Duarte DO; No Primary Care Physician Mechanical Engineering Manager: Signed Normal [facility] Emergency Department Summary on 03-30-2025 Emergency Department Summary [facility] Medical Records Department [address] [place] [address] Emergency Department Summary 03/30/25 MR#: [id number] Acct: [id number] Name: CHANDANA RAYMUNDO Rep #: [id number] : 1995 29 From: Cruz Duarte DO PCP: Care Physician,No Primary Status:[facility] ER Location: ED HPI History of Present [...] breath. No sputum production no fevers. PFSH PFS Medical History Kidney disease Liver abscess Asthma [...] no wou (more content not included)... Normal [facility] Emergency Department Summary on 12-22-2024 Emergency Department Summary [facility] Medical Records Department [address] [place] [address] Emergency Department Summary 12/22/24 MR#: [id number] Acct: [id number] Name: CHANDANA RAYMUNDO Rep #: [id number] : 1995 29 From: Ryan Crump MD [...] sheet on his foot when he sleeps. PFSH PFS Medical History Kidney disease Liver abscess Asthma [...] can be discharged to follow-up with the [facility] clinic as he states he is currently homeless and does not have health insurance. Return instructions to the emergency department were reviewed. Disposition is discharged home in stable condition. History Record Review Discussion w/independent historian: Patient Additional record(s) reviewed:: Prior ED visit Radiography Diagnostic Testing: Clinical Impression(s) from Imaging Studies Foot X-Ray 12/22/24 13:30 IMPRESSION: Unremarkable examination. Reading Location: [id number] Discharge Plan Triage Chief Complaint: Lower Extremity [...] mg tablet, (more content not included)... Normal [facility] Foot min 3 Viewson Foot min 3 Views [facility] Imaging Services [address] [place] [address] Foot min 3 Views MR#: [id number] Acct: [id number] Name: CHANDANA RAYMUNDO Rep #: [id number] : 1995 M 29 From: Fawad dixon MD PCP: Care Physician,No Primary Status: PRE ER Study: Foot min 3 Views Date of Exam: 12/22/24 Exam# [id number] Ordering Dr: Provider,Ed P. PROCEDURE: FOOT MIN 3 VIEWS REASON FOR EXAM: Pain. History of gout. TECHNIQUE: Three views of the left foot were obtained. COMPARISON: Comparison is made with prior study dated May 25, 2023 FINDINGS: LEFT FOOT: No visible fracture. No suspicious bone lesion. Normal alignment. Soft tissues are unremarkable. RAD/Foot min 3 Views IMPRESSION: Unremarkable examination. Reading Location: [id number] CC: ED PHYSICIAN PROVIDER; No Primary Care Physician Mechanical Engineering Manager: Signed Normal [facility] Emergency Department Summary on 12-06-2024 Emergency Department Summary [facility] Medical Records Department [address] [facility] [place] [address] Emergency Department Summary 12/06/24 MR#: [id number] Acct: [id number] Name: CHANDANA RAYMUNDO Rep #: [id number] : 1995 29 From: Chandana Huang DO [...] last night they went to dinner to [employer] and felt that the chicken was undercooked but states that he ate a few bites of this before realizing and does not know if he has food poisoning. [facility] Medical History Kidney disease Liver abscess Asthma [...] follow commands knew that he was at [facility] year is 2024 Skin: Warm, dry, [...] (Reason: nausea (more content not included)... Normal [facility] Influenza virus A and B and SARS-CoV-2 (COVID-19) and Respiratory syncytial virus RNAOrdered By: Chandana Huang on 12-06-2024 SARS-CoV-2 (COVID-19) RNA HUE+probe Ql (Unsp spec) [facility] M100.678on 12-06-2024 M100.678 Pending SARS-CoV-2 (COVID 19) Negative INFLUENZA A Negative INFLUENZA B Negative RSV PCR Negative Normal [facility] Comment on above: Performed By: #### M 100.068 #### [facility] [address] [place], [address] ALCOHOLon 10-29-2024 Ethanol [Mass/Vol] mg/dL Normal [facility] Comment on above: Result Comment: Note : Alcohol values performed at [facility] are performed on serum or plasma and reported in mg/dl, which is different then the state reporting units of g/dl which is performed on whole blood. Result reporting units are based on test methodology and are not interchangable. Performed By: #### 1 51424, 0726669, 707466, 518209 #### [facility] Services [address] [place], [place] [address] Grey Goods Tester: Junior Little MD AUTO DIFFon 10-29-2024 Baso Count 0.10 x1000 Normal 0.00-0.20 [facility] Comment on above: Performed By: #### 1 38209, 2767405, 740285, 277961 #### [facility] Services [address] [place] [address] Grey Goods Tester: Junior Little MD Basos % 1.2 % Normal [facility] Comment on above: Performed By: #### 1 12824, 8049887, 194340, 852070 #### [facility] [address] [place], [place] [address] Grey Goods Tester: Junior Little MD Eos Count 0.20 x1000 Normal 0.00-0.50 [facility] Comment on above: Performed By: #### 1 26701, 3223391, 700857, 497048 #### [facility] [address] [place], [place] [address] Grey Goods Tester: Junior Little MD Eosinophils/100 WBC (Bld) 1.5 % Normal [facility] Comment on above: Performed By: #### 1 72532, 6816987, 903188, 321812 #### [facility] [address] [place], [place] [address] Grey Goods Tester: Junior Little MD Lymph Count 2.20 x1000 Normal 1.20-4.80 [facility] Comment on above: Performed By: #### 1 64639, 1474470, 365791, 981717 #### [facility] Services [address] [place] [address] Grey Goods Tester: Junior Little MD Lymphocytes/100 WBC (Bld) 18.8 % Normal [facility] Comment on above: Performed By: #### 1 30739, 6505485, 653662, 913951 #### [facility] [address] [place] [address] Grey Goods Tester: Junior Little MD Morgan Count 0.60 x1000 Normal 0.10-1.00 [facility] Comment on above: Performed By: #### 1 18579, 7651618, 594407, 434785 #### [facility] [address] [place] [address] Grey Good[employer] Tester: Junior Little MD Monocytes/100 WBC (Bld) 4.7 % Normal [facility] Comment on above: Performed By: #### 1 73690, 3084745, 264718, 518782 #### [facility] [address] [place] [address] Grey Good[employer] Tester: Junior Little MD Neutrophil Count (ANC) 8.80 x1000 Normal 1.40-8.80 [facility] Comment on above: Performed By: #### 1 35687, 2459877, 390556, 211651 #### [facility] [address] [place] [address] Grey Goods Tester: Junior Little MD Neutrophils/100 WBC (Bld) 73.8 % Normal [facility] Comment on above: Performed By: #### 1 73314, 7080660, 074019, 479500 #### [facility] [address] [place] [address] Grey Goods Tester: Junior Little MD COMPMETAon 10-29-2024 GFR Estimated 40 Normal [facility] Comment on above: Result Comment: The GFR is calculated and is Age, Sex, and Race adjusted. Performed By: #### 1 75048, 2905125, 325468, 319001 #### [facility] [address] [place] [address] Grey Goods Tester: Junior Little MD Albumin [Mass/Vol] 3.0 g/dL Low 3.4-5.0 [facility] Comment on above: Performed By: #### 1 17657, 9609269, 814203, 059397 #### [facility] [address] [place] [address] Grey Goods Tester: Junior Little MD Albumin/Globulin [Mass ratio] 0.7 {ratio} Normal [facility] Comment on above: Performed By: #### 1 , 9879218, 010050, 222196 #### [facility] [address] [place] [address] Grey Goods Tester: Junior Little MD Alk Phos 137 unit/L High 45-117 [facility] Comment on above: Performed By: #### 1 , 1523112, 385908, 038825 #### [facility] [address] [place] [address] Grey Goods Tester: Junior Little MD Bilirubin [Mass/Vol] 0.30 mg/dL Normal 0.30-1.20 [facility] Comment on above: Result Comment: Use of this assay is not recommended for patients undergoing treatment with eltrombopag due to the potential for falsely elevated results. Performed By: #### 1 , [id number], 683599, 422731 #### [facility] [address] [place] [address] Grey Goods Tester: Junior Little MD Calcium [Mass/Vol] 8.8 mg/dL Normal 8.5-10.5 [facility] Comment on above: Performed By: #### 1 , 9797973, 838305, 553259 #### [facility] [address] [place] [address] Grey Goods Tester: Junior Little MD Chloride [Moles/Vol] 106 mmol/L Normal 100-109 [facility] Comment on above: Performed By: #### 1 48667, 3811269, 216362, 824970 #### [facility] [address] [place] [address] Grey Goods Tester: Junior Little MD CO2 [Moles/Vol] 26.5 mmol/L Normal 21.0-32.0 [facility] Comment on above: Performed By: #### 1 33960, 2995627, 539480, 922682 #### [facility] [address] [place] [address] Grey Goods Tester: Junior Little MD Creatinine [Mass/Vol] 2.0 mg/dL High 0.7-1.3 [facility] Comment on above: Performed By: #### 1 89961, 4391981, 822651, 466790 #### [facility] [address] [place] [address] Grey Goods Tester: Junior Little MD Globulin (S) [Mass/Vol] 4.1 g/dL Normal [facility] Comment on above: Performed By: #### 1 27683, 3851126, 958732, 876179 #### [facility] [address] [place] [address] Grey Goods Tester: Junior Little MD Glucose [Mass/Vol] 168 mg/dL High 72-100 [facility] Comment on above: Result Comment: Radha puncture should occur prior to sulfasalazine administration due to the potential for falsely depressed results. Venipuncture should occur prior to sulfapyridine administration due to the potential falsely elevated results. Baseline assay values before administration of sulfasalazine and sulfapyridine therapy would not be affected. Performed By: #### 1 10526, 1997380, 063308, 074608 #### [facility] [address] [place] [address] Grey Goods Tester: Junior Little MD GOT 15 unit/L Normal 15-37 [facility] Comment on above: Result Comment: Radha puncture should occur prior to sulfasalazine administration due to the potential for falsely depressed results. Baseline assay values before administration of sulfasalazine and sulfapyridine therapy would not be affected. Performed By: #### 1 15368, 3988952, 792144, 591276 #### [facility] [address] [place] [address] Grey Goods Tester: Junior Little MD GPT 25 unit/L Normal 16-63 [facility] Comment on above: Result Comment: Radha puncture should occur prior to sulfasalazine administration due to the potential for falsely depressed results. Baseline assay values before administration of sulfasalazine and sulfapyridine therapy would not be affected. Performed By: #### 1 74209, [id number], [id number], [id number] #### [facility] [address] [place] [address] 80396 Grey Goods Tester: Junior Little MD Osmolality [Osmolality] 293 mosm/kg Normal 275-295 [facility] Comment on above: Performed By: #### 1 28436, [id number], 724089, 998676 #### [facility] [address] [place] [address] 82924 Grey Goods Tester: Junior Little MD Potassium [Moles/Vol] 4.0 mmol/L Normal 3.5-5.1 [facility] Comment on above: Performed By: #### 1 31806, 1007631, 620851, 305922 #### [facility] [address] [place] [address] 82625 Grey Goods Tester: Junior Little MD Protein [Mass/Vol] 7.1 g/dL Normal 6.0-8.5 [facility] Comment on above: Performed By: #### 1 53454, [id number], 059561, 428688 #### [facility] [address] [place] [address] 68918 Grey Goods Tester: Junior Little MD Sodium [Moles/Vol] 144 mmol/L Normal 135-145 [facility] Comment on above: Performed By: #### 1 47948, 0732889, 911017, 695243 #### [facility] [address] [place] [address] Grey Goods Tester: Junior Little MD Urea nitrogen [Mass/Vol] 19 mg/dL Normal 10-20 [facility] Comment on above: Performed By: #### 1 54276, [id number], 754763, 649903 #### [facility] [address] [place] [address] 59633 Grey Goods Tester: Junior Little MD Urea nitrogen/Creatinine [Mass ratio] 9.5 mg/mg Normal [facility] Comment on above: Performed By: #### 1 07051, [id number], 821469, 312269 #### [facility] [address] [place] [address] 93649 Grey Goods Tester: Junior Little MD COVID-19 Molecular BREDon SARS-CoV-2 (COVID-19) RNA HUE+probe Ql (Unsp spec) Negative Normal Negative [facility] Comment on above: Result Comment: This assay [...] diagnosis. This testing was performed in the [facility] laboratory located at [place] [address]] Performed By: #### C [id number] #### [facility] [address] [place] [address] 07720 Grey Goods Tester: Junior Little MD ED Data PERSONALIZED LIVING MANAGER NURSE - [facility] 025 ED Data PERSONALIZED LIVING MANAGER NURSE - Text ED Data PERSONALIZED LIVING MANAGER NURSE Entered On: 10/29/2024 17:13 EST Performed On: 10/29/2024 17:10 EST by Jeet Weinberg RN ED General Intake Information [place] Coma : Document [place] Coma Scale Problem History : Document Problem History Procedure History : Document Procedure History Safety Screening : Document Safety Screening Referral Source : Home Mode of Arrival * : Car / Walk-In ED KINDER Falls Risk : Document Falls Assessment Infection Screening : Document Infection Screening Depression Screening : Document Depression Screening Would you accept a blood transfusion if necessary? : Yes Social History : Document Social History Currently or : Not Applicable Jeet Weinberg RN - 10/29/2024 17:10 EST [place] Coma Scale Eye Opening : Spontaneously Best Verbal Response : Oriented Best Motor Response : Obeys simple commands Lakisha Coma Score (Ref) : 15 Jeet Weinberg RN - 10/29/2024 17:10 EST Problem History (As Of: 10/29/2024 17:13:44 EST) Problems(Active) Knowledge deficit (SNOMED CT :4491354489 ) Name of Problem: Knowledge deficit ; Recorder: SYSTEM; Confirmation: Confirmed ; Classification: Nursing ; Code: 5699437562 ; Last Updated: 12/06/2013 18:01 EST ; [...] PNED ; Probability: 0 ; Diagnosis Code: [id number] Procedure History ED Urinary Catheter Present on [...] History (As Of: 10/29/2024 17:13:44 EST) Normal [facility] ED Discharge Educationon ED Discharge Education Normal So [facility] ED Emergency Severity Index Adult-[facility] 10-29-2024 [...] Huerta RN - 10/29/2024 17:10 EST Normal [facility] ED Patient Summaryon 025 ED Patient Summary [facility] Emergency Department Discharge Instructions [address] [place] [address] (Patient Copy) Name: CHANDANA RAYMUNDO : 1995 Allergies: penicillins Diagnosis: Depression; Verbalizes suicidal thoughts Visit Date: 10/29/2024 17:03:12 Current Date Time: 10/29/2024 22:04:28 Address: [address] [place] [address] Phone: [phone] Primary Care Provider: Name: NO FAMILY PHYSICIAN, 837 Phone: Emergency Department Care Providers: Primary Physician: MÓNICA SERRANO MD Thank you for choosing [facility] for your emergency care. You are very important to us. Our goal is to demonstrate our high quality medical care, and provide you with a very good patient experience. You may receive a survey about our service. Please take the time to complete the survey and return it so we can continue to enhance our service. Thank you again for allowing the [facility] Emergency Department to care for your medical needs. If you have questions about your care or follow up information please contact us at [phone]. Follow-Up Instructions CHANDANA RAYMUNDO has been given these follow-up instructions: Patient Education Materials CHANDANA RAYMUNDO has been given the following patient education materials: BEFORE YOU LEAVE Set up your [facility] [employer] account! [employer] is a secure, online health management tool that connects you to portions of your hospital-based electronic medical record, allowing you to see test results, manage appointments, access discharge care instructions and much more. You can access [employer] from a computer, tablet or smartphone. Enrollment/registra tion is required. If you do not have a [employer] account, please provide us with an email address before you leave so that we may set up an account for you. New to [employer]! You may now securely connect some of the health management apps you use (e.g., fitness trackers, dietary trackers, etc.) to your health record in [facility] [employer]. This new feature provides expanded access to your health and wellness data, which will help you and your care team make informed decisions about your health care. If you are interested in using a health management minh not currently connected to [employer], contact a Manager Data at [email or web address]. We will determine if the minh meets the technical requirements to connect to [facility] [employer] and assure the security of your private [...] health or substance abuse issue, please call [facility] at [phone] or the National Suicide Prevention Lifeline at . IBREANNE TYLER, have received the follow-up provider(s) list, medication information and patient education materials/instructi ons and have verbalized understanding. Patient Signature Date Time Provider Signature Date Time Normal [facility] ED Physician Reporton 2024 ED Physician Report [...] Reexamination/Reeva luation Patient will be admitted to [facility] for suicidal thoughts and feelings of depression. [...] Request for Bed Placement, 10/29/2024 19:55:00 EST, GREGORY MAXWELL, MÓNICA, [facility], Admit as Inpatient CBCWD(CBC WITH DIFF), STAT, 10/29/2024 17:16:00 EST COMPMETA(CMP), STAT, 10/29/2024 17:16:00 EST COVID-19 Molecular BRED, STAT, 10/29/2024 17:16:00 EST, Specimen type: PUBLIC SAFETY DISPATCHER Swab EKG, 10/29/2024 17:16:00 EST, Other Reason, Cart, Heart Meds Unknown at this time, PRERNA, No EKG/Christiana Requested Level of Care Order, 10/29/2024, Mental Health/Psych Admit as Inpatient, GREGORY MAXWELL, MÓNICA, Reg - no need to update [...] 17:17 0 Lymph % 10/29/24 17:17 18.8 Morgan % 10/29/24 17:17 4.7 Neutrophil % 10/29/24 17:17 73.8 Eosin % 10/29/24 17:17 1.5 Basos % 10/29/24 17:17 1.2 Lymph Count 10/29/24 17:17 2.20 Morgan Count 10/29/24 17:17 0.60 Neutrophil Count (ANC) 10/29/24 17:17 8.80 Eos Count 10/29/24 17:17 0.20 Baso Count 10/29/24 17:17 0.10 Immunology LATEST RESULTS COVID-19 Molecular BRED 10/29/24 17:17 Negative Urine Analysis LATEST RESULTS Color, U 10/29/24 17:17 Yellow Appearance, U 10/29/24 (more content not included)... Normal [facility] ED Progress Noteon ED Progress Note Pt. alert and oriented presents with suicidal ideations due to environmental factors. No attempts. States frequent pot use since the age of 14. Denies physical complaints. Spoke with Yahir at [facility] , due to patient having no insurance and being a resident in [facility]. AP on-call nephrology social worker to call back. Pt. resting quietly and in no distress. Awaiting news from [facility]. 1900 Assumed care of patient. A & O x3. Safety maintained. Patient provided water at this time, declines food or snack. 0 Patient medicated per EMAR, denies questions or concerns. 200 Report given to Charo at [facility]. Patient going to . Received approval from [facility]. 2029 No changes in assessment. 2129 Patient resting in position of comfort with call light within reach. Safety maintained. Respirations even and unlabored, no acute distress. 2135 Report given to physician ambulance. Normal [facility] ED Triage PERSONALIZED LIVING MANAGER NURSE - [facility] 10-29 ED Triage PERSONALIZED LIVING MANAGER NURSE - Text ED Triage PERSONALIZED LIVING MANAGER NURSE Entered On: 10/29/2024 17:15 EST Performed On: [...] 17:15:39 EST) Problems(Active) Knowledge deficit (SNOMED CT :5940616210 ) Name of Problem: Knowledge deficit ; Recorder: SYSTEM; Confirmation: Confirmed ; Classification: Nursing ; Code: 6265809184 ; Last Updated: 12/06/2013 18:01 EST ; [...] PNED ; Probability: 0 ; Diagnosis Code: [id number] Reason for Visit (As Of: 10/29/2024 17:15:40 EST) Problems(Active) Knowledge deficit (SNOMED CT :6075166192 ) Name of Problem: Knowledge deficit ; Recorder: SYSTEM; Confirmation: Confirmed ; Classification: Nursing ; Code: [id number] ; Last Updated: 12/06/2013 18:01 EST ; [...] PNED ; Probability: 0 ; Diagnosis Code: [id number] Sepsis Screening Sepsis Vitals Screening ED : None/ NA(Peds) Jeet Weinberg RN - 10/29/2024 17:14 EST Normal [facility] HEMOon 10-29-2024 DIFF? No Normal [facility] Comment on above: Performed By: #### 1 77976, 1615317, 743748, 240793 #### [facility] [address] [place], [place] [address] Grey Goods Tester: Junior Little MD Erythrocyte distribution width (RBC) [Ratio] 13.2 % Normal 11.5-14.5 [facility] Comment on above: Performed By: #### 1 38432, 9647945, 413842, 491285 #### [facility] [address] [place] [address] Grey Goods Tester: Junior Little MD Hematocrit (Bld) [Volume fraction] 50.2 % Normal 41.0-52.0 [facility] Comment on above: Performed By: #### 1 23557, 6004938, 236631, 051330 #### [facility] [address] [place] [address] 06696 Grey Goods Tester: Junior Little MD Hemoglobin (Bld) [Mass/Vol] 17.2 g/dL Normal 13.5-17.5 [facility] Comment on above: Performed By: #### 1 73844, 0015271, 864514, 796453 #### [facility] [address] [place] [address] 65214 Grey Goods Tester: Junior Little MD Instr WBC 11.9 Normal [facility] Comment on above: Performed By: #### 1 22470, 7875653, 735528, 704652 #### [facility] [address] [place] [address] 09906 Grey Goods Tester: Junior Little MD MCH (RBC) [Entitic mass] 32.6 pg Normal 27.0-34.0 [facility] Comment on above: Performed By: #### 1 01561, 8835504, 869922, 140818 #### [facility] [address] [place] [address] 43283 Grey Goods Tester: Junior Little MD MCHC (RBC) [Mass/Vol] 34.3 g/dL Normal 32.0-37.0 [facility] Comment on above: Performed By: #### 1 46672, 7084886, 217852, 026538 #### [facility] [address] [place] [address] 45103 Grey Goods Tester: Junior Little MD MCV (RBC) [Entitic vol] 95.1 fL Normal 80.0-100.0 [facility] Comment on above: Performed By: #### 1 01300, 8514355, 396060, 405097 #### [facility] [address] [place] [address] 36892 Grey Goods Tester: Junior Little MD Nucleated RBC 0 /100WBC Normal [facility] Comment on above: Performed By: #### 1 37823, 9281247, 547602, 630638 #### [facility] [address] [place] [address] 00401 Grey Goods Tester: Junior Little MD Platelet 272 x10 Normal 150-450 [facility] Comment on above: Performed By: #### 1 58061, 3141275, 774744, 473401 #### [facility] [address] [place] [address] 33525 Grey Goods Tester: Junior Little MD Platelet mean volume (Bld) [Entitic vol] 8.1 fL Normal 7.4-10.4 [facility] Comment on above: Performed By: #### 1 87943, 5169004, 610073, 577867 #### [facility] [address] [place] [address] 37665 Grey Goods Tester: Junior Little MD RBC 5.28 x10 Normal 4.70-6.10 [facility] Comment on above: Result Comment: Note : RBC morphology is normal unless otherwise stated. Evaluation performed only if differential is requested. Performed By: #### 1 42603, 1873747, 976250, 462429 #### [facility] [address] [place] [address] 85146 Grey Goods Tester: Junior Little MD WBC 11.9 x10 High 4.5-11.0 [facility] Comment on above: Performed By: #### 1 36828, 5031941, 326103, 944620 #### [facility] [address] [place] [address] 08634 Grey Goods Tester: Junior Little MD U DOAon 10-29-2024 Amphetamines, U Negative Normal [facility] Comment on above: Performed By: #### 1 44293 #### [facility] [address] [place] [address] 80906 Grey Goods Tester: Junior Little MD Barbituates, U Negative Normal [facility] Comment on above: Performed By: #### 1 80363 #### [facility] [address] [place] [address] Grey Goods Tester: Junior Little MD Benzodiazepines, U Negative Normal [facility] Comment on above: Performed By: #### 1 74056 #### [facility] [address] [place] [address] 01163 Grey Goods Tester: Junior Little MD Cocaine, U Negative Normal [facility] Comment on above: Performed By: #### 1 48416 #### [facility] [address] [place] [address] 94443 Grey Goods Tester: Junior Little MD Ecstasy, U Negative Normal [facility] Comment on above: Performed By: #### 1 10623 #### [facility] [address] [place] [address] 93983 Grey Goods Tester: Junior Little MD Opiates, U Negative Normal [facility] Comment on above: Performed By: #### 1 84170 #### [facility] [address] [place] [address] 74802 Grey Goods Tester: Junior Little MD PCP, U Negative Normal [facility] Comment on above: Performed By: #### 1 35353 #### [facility] [address] [place] [address] 22398 Grey Goods Tester: Junior Little MD THC, U Positive Normal [facility] Comment on above: Performed By: #### 1 94934 #### [facility] [address] [place] [address] 12445 Grey Goods Tester: Junior Little MD UAon 10-29-2024 Appearance, U Clear Normal [facility] Comment on above: Performed By: #### 1 86879 #### [facility] [address] [place] [address] 72784 Grey Goods Tester: Junior Little MD Bacteria, U Occasional Normal [facility] Comment on above: Performed By: #### 1 63000 #### [facility] [address] [place] [address] 41742 Grey Goods Tester: Junior Little MD Bilirubin, U Negative Normal [facility] Comment on above: Result Comment: Bili wilkerson, U: Initial positive urine bilirubin results are not confirmed. Interfering substances may include elevated urobilinogen. Trace = 0.5-1.0 mg/dL Small = 2.0-4.0 mg/dL Moderate = 6.0-8.0 mg/dL Large = 10 mg/dl and greater Performed By: #### 1 75165 #### [facility] [address] [place] [address] 14013 Grey Goods Tester: Junior Little MD Blood, U Small Abnormal Negative [facility] Comment on above: Result Comment: Bloo d, U: Trace = 0.03-0.05 mg/dL Small = 0.06-0.1 mg/dL Moderate = 0.2-0.5 mg/dL Large = 1.0 mg/dL and greater Performed By: #### 1 86071 #### [facility] [address] [place] [address] 20719 Grey Goods Tester: Junior Little MD Color, U Yellow Normal [facility] Comment on above: Performed By: #### 1 85119 #### [facility] [address] [place] [address] 49669 Grey Goods Tester: Junior Little MD Glucose Qual, U Negative Normal Negative [facility] Comment on above: Performed By: #### 1 83012 #### [facility] [address] [place] [address] 04206 Grey Goods Tester: Junior Little MD Ketones, U Negative Normal Negative [facility] Comment on above: Performed By: #### 1 09388 #### [facility] [address] [place] [address] 71095 Grey Goods Tester: Junior Little MD Leukocyte Esterase, U Negative Normal Negative [facility] Comment on above: Result Comment: Leuk ocyte Esterase, U: Trace = 25 Ara/uL Small = 75 Ara/uL Moderate = 250 Ara/uL Large = 500 Ara/uL and greater Performed By: #### 1 23985 #### [facility] [address] [place] [address] 29433 Grey Goods Tester: Junior Little MD Mucous, U Occasional Normal [facility] Comment on above: Performed By: #### 1 22418 #### [facility] [address] [place], [place] [address] Grey Goods Tester: Junior Little MD Nitrite, U Negative Normal Negative [facility] Comment on above: Performed By: #### 1 55366 #### [facility] [address] [place], [place] [address] Grey Goods Tester: Junior Little MD pH, U 6.0 Normal 4.5-8.0 [facility] Comment on above: Performed By: #### 1 33918 #### [facility] [address] [place] [address] Grey Goods Tester: Junior Little MD Protein, U >=300 mg/dl Abnormal Negative [facility] Comment on above: Performed By: #### 1 45583 #### [facility] [address] [place] [address] Grey Goods Tester: Junior Little MD RBC/HPF, U 4 #/HPF High 0-3 [facility] Comment on above: Performed By: #### 1 91803 #### [facility] [address] [place], [place] [address] Grey Goods Tester: Junior Little MD Specific Advance, U S>=1.030 Normal 1.001-1.035 [facility] Comment on above: Performed By: #### 1 04269 #### [facility] [address] [place] [address] 76784 Grey Goods Tester: Junior Little MD U MICRO Indicated Normal [facility] Comment on above: Performed By: #### 1 83855 #### [facility] [address] [place], [place] 247[address] Grey Goods Tester: Junior Little MD Urobilinogen Qual, U 1.0 EU/dl Normal 0.1-1.0 mg/dl [facility] Comment on above: Result Comment: Urob ilinogen, U: EU/dl and mg/dl are equivalent units. Performed By: #### 1 10974 #### [facility] [address] [place], [place] [address] Grey Goods Tester: Junior Little MD WBC/HPF, U 4 #/HPF Normal 0-5 [facility] Comment on above: Performed By: #### 1 33371 #### [facility] [address] [place] [address] Grey Goods Tester: Junior Little MD CNOVon 03-10-2024 [facility] ---- CHANDANA RAYMUNDO ([id number]) 1995 M Date Time Provider Department 03/10/24 11:45 AM IGNACIA [facility] During your visit today, we recorded the following information about you: Temperature Pulse Respiration Blood pressure 97 degrees 68/minute 22/minute 143/94 Weight 143 kg Ignacia Justice APRN.FIELD TECHNICAL SUPPORT CONSULTANT 03/10/2024 1:15 PM Signed This note was created using NoteWriter. Subjective Chandana Gabe Raymundo is a 28 year old male. 28 year old male with PMH gout presents for complaints gout Acute onset of symptoms was 2 days ago +right great toe +redness +swelling +tenderness Denies trauma or injury History of gout, Endorses feels similar to prior bouts States he was at a [employer] and there was a cook out. Has used Ibuprofen The history is provided by the patient. No data warehouse manager was used. Pain (foot) Pain location: right [...] present. M (more content not included)... Normal [facility] CNOVon 10-20-2023 [facility] Office Visit ([facility]) ---- CHANDANA RAYMUNDO ([id number]) 1995 M Date Time Provider Department 10/20/23 2:45 PM ANGEL FRIED [facility] During your visit today, we recorded the following information about you: Temperature Pulse Respiration Blood pressure 98.4 degrees 108/minute 16/minute 180/108 Weight 138.1 kg Angel Fried PA-C 10/20/2023 4:25 PM Signed This note was created using [employer]). Subjective Chandana Raymundo is a 27 year [...] Status:Closed by ANGEL FRIED on 10/20/23 Normal [facility] Absolute lymphocyte countOrd ered By: Valeriysymone Mercer on 10-12-2023 Lymphocytes Auto (Unsp spec) [#/Vol] 1.99 10*3/uL 0.83-4.51 [facility] Basophil percentageOrdered B y: Valeriy Mercer on 10-12-2023 Basophils/100 WBC (Bld) 0.5 % 0-1 [facility] Chloride [Moles/Vol] 109 mmol/L 98-107 [facility] Eosinophils/100 WBC (Bld) 1.0 % 0-5 [facility] Glucose [Mass/Vol] 99 mg/dL 74-106 [facility] Neutrophils (Bld) [#/Vol] 11.1 10*3/uL 2.0-7.7 [facility] [facility] Neutrophils/100 WBC (Bld) 77.9 % 47-70 [facility] Potassium [Moles/Vol] 3.8 mmol/L 3.5-5.[address] [facility] Sodium [Moles/Vol] 140 mmol/L 136-145 [facility] WBC (Bld) [#/Vol] 14.2 10*3/uL 4.4-11.0 [facility] Blood erythrocytes count (nu mber/volume)Ordered By: Valeriysymone Mercer on 10-12-2023 RBC (Bld) [#/Vol] 4.94 10*6/uL 4.6-6.2 [facility] Blood hemoglobin measurement (mass/volume)Ordered By: Valeriysymone Mercer on 10-12-2023 Hemoglobin (Bld) [Mass/Vol] 15.7 g/dL 13.0-16.5 [facility] Blood lymphocytes/100 leukoc ytesOrdered By: Valeriysymone Mercer on 10-12-2023 Lymphocytes/100 WBC (Bld) 14.1 % 19-41 [facility] Blood monocytes/100 leukocyt esOrdered By: Valeriy Mercer on 10-12-2023 Monocytes/100 WBC (Bld) 5.9 % 0-10 [facility] Blood platelet mean volumeOr dered By: Valeriy Mercer on 10-12-2023 Platelet mean volume (Bld) [Entitic vol] 9.7 fL 6.2-12.0 [facility] Determination of erythrocyte mean corpuscular volume (MCV)Ordered By: Valeriysymone Mercer on 10-12-2023 MCV (RBC) [Entitic vol] 94.3 fL 80-94 [facility] Hematocrit Auto (Bld) [Volum e fraction]Ordered By: Valeriysymone Mercer on 10-12-2023 Hematocrit (Bld) [Volume fraction] 46.6 % 40-54 [facility] Influenza virus A and B and SARS-CoV-2 (COVID-19) Ag panel - Upper respiratory specimOrdered By: Valeriysymone Mercer on 10-12-2023 SARS-CoV-2 (COVID-19) RNA HUE+probe Ql (Resp) [facility] Laboratory - Chemistry and C hemistry - challengeOrdered By: Valeriysymone Mercer on 10-12-2023 CO2 [Moles/Vol] 26.0 mmol/L 21.0-32.0 [facility] Urea nitrogen/Creatinine [Mass ratio] 12.5 mg/mg 10-20 [facility] Laboratory - Hematology and Cell countsOrdered By: Valeriysymone Mercer on 10-12-2023 Erythrocyte distribution width (RBC) [Entitic vol] 39.5 fL 35.1-43.9 [facility] Erythrocyte distribution width (RBC) [Ratio] 11.4 % 11.6-14.6 [facility] Immature granulocytes/100 WBC (Bld) 0.600 % 0.0-0.9 [facility] Comment on above: IG% - Immature Granu locytes (promyelocytes, myelocytes and metamyelocytes) > 1% indicates that a LEFT SHIFT is Present. MCH (RBC) [Entitic mass] 31.8 pg 27.0-32.0 [facility] Nucleated RBC/100 WBC (Bld) [Ratio] 0 % 0-5 [facility] MCHC Auto (RBC) [Mass/Vol]Or dered By: Valeriysymone Mercer on 10-12-2023 MCHC (RBC) [Mass/Vol] 33.7 g/dL 32-[address] [facility] No Panel InformationOrdered By: Valeriy Mercer on 10-12-2023 Estimated Creatinine Clearance Calc 62.27 ml/min [facility] Estimated GFR (MDRD) Amer 57 mL/min >60 [facility] Comment on above: GFR Calc Estimated GFR (MDRD) Non-Af Amer 47 mL/min >60 [facility] Comment on above: Non- GFR Calc Platelets bldOrdered By: Valeriy Mercer on 10-12-2023 Platelets (Bld) [#/Vol] 248 10*3/uL 150-450 [facility] Serum or plasma calcium khanh urement (mass/volume)Ordered By: Valeriy Mercer on 10-12-2023 Calcium [Mass/Vol] 9.3 mg/dL 8.5-10.1 [facility] Serum or plasma creatinine m easurement (mass/volume)Ordered By: Valeriy Mercer on 10-12-2023 Creatinine [Mass/Vol] 1.84 mg/dL 0.70-1.[address] [facility] Comment on above: The validity of the calculated GFR & GFRAA in patients over 70 years has not been determined. Clinical correlation is essential. Serum or plasma urea nitroge n measurement (mass/volume)Ordered By: Valeriy Mercer on 10-12-2023 Urea nitrogen [Mass/Vol] 23 mg/dL 05-12 [facility] Thin prep Papanicolaou smear with manual screeningOrdered By: Valeriy Mercer on 10-12-2023 Thin prep Papanicolaou smear with manual screening 5 5-15 [facility] CNOVon 06-14-2023 CNOV Office Visit ([facility]WSTR) ---- CHANDANA RAYMUNDO ([id number]) 1995 M Date Time Provider Department 06/14/23 1:30 PM TIFFANY SAMANO WSTR During your visit today, we recorded the [...] of suture with it. He verbalized understanding. TEVIN Corrales Kathy, APRN.CNP 06/19/2023 3:08 PM Addendum Subjective Suture [...] with it. He verbalized understanding. Tiffany Samano APRN.FIELD TECHNICAL SUPPORT CONSULTANT Referring Provider: SELF [[id number]] Allergies As of [...] with it. He verbalized understanding. Tiffany Samano APRN.FIELD TECHNICAL SUPPORT CONSULTANT Encounter Status:Closed by TIFFANY SAMANO on 06/14/23 Normal [facility] Absolute lymphocyte countOrd ered By: Dr. Winkler on 03-08-2023 Lymphocytes Auto (Unsp spec) [#/Vol] 2.05 10*3/uL 0.83-4.51 [facility] Basophil percentageOrdered B y: Dr. Winkler on 03-08-2023 Basophils/100 WBC (Bld) 0.6 % 0-1 [facility] Chloride [Moles/Vol] 110 mmol/L 98-107 [facility] Eosinophils/100 WBC (Bld) 2.1 % 0-5 [facility] Glucose [Mass/Vol] 143 mg/dL 74-106 [facility] Comment on above: Fasting Glucose resu lt greater than or equal to 126 mg/dL suggests DIABETES MELLITUS per A.D.A. criteria. Neutrophils (Bld) [#/Vol] 7.3 10*3/uL 2.0-7.7 [facility] Neutrophils/100 WBC (Bld) 69.1 % 47-70 [facility] Potassium [Moles/Vol] 4.2 mmol/L 3.5-5.[address] [facility] Sodium [Moles/Vol] 143 mmol/L 136-145 [facility] WBC (Bld) [#/Vol] 10.6 10*3/uL 4.4-11.0 [facility] Blood erythrocytes count (nu mber/volume)Ordered By: Dr. Winkler on 03-08-2023 RBC (Bld) [#/Vol] 4.54 10*6/uL 4.6-6.2 [facility] Blood hemoglobin measurement (mass/volume)Ordered By: Dr. Winkler on 03-08-2023 Hemoglobin (Bld) [Mass/Vol] 14.8 g/dL 13.0-16.5 [facility] Blood lymphocytes/100 leukoc ytesOrdered By: Dr. Winkler on 03-08-2023 Lymphocytes/100 WBC (Bld) 19.4 % 19-41 [facility] Blood monocytes/100 leukocyt esOrdered By: Dr. Winkler on 03-08-2023 Monocytes/100 WBC (Bld) 8.3 % 0-10 [facility] Blood platelet mean volumeOr dered By: Dr. Winkler on 03-08-2023 Platelet mean volume (Bld) [Entitic vol] 10.1 fL 6.2-12.0 [facility] Determination of erythrocyte mean corpuscular volume (MCV)Ordered By: Dr. Winkler on 03-08-2023 MCV (RBC) [Entitic vol] 97.1 fL 80-94 [facility] Hematocrit Auto (Bld) [Volum e fraction]Ordered By: Dr. Winkler on 03-08-2023 Hematocrit (Bld) [Volume fraction] 44.1 % 40-54 [facility] Laboratory - Chemistry and C hemistry - challengeOrdered By: Dr. Winkler on 03-08-2023 CO2 [Moles/Vol] 27.0 mmol/L 21.0-32.0 [facility] Natriuretic peptide B (Bld) [Mass/Vol] 10.9 pg/mL 0-100 [facility] Urea nitrogen/Creatinine [Mass ratio] 15.7 mg/mg 10-20 [facility] Laboratory - Hematology and Cell countsOrdered By: Dr. Winkler on 03-08-2023 Erythrocyte distribution width (RBC) [Entitic vol] 42.8 fL 35.1-43.9 [facility] Erythrocyte distribution width (RBC) [Ratio] 11.9 % 11.6-14.6 [facility] Immature granulocytes/100 WBC (Bld) 0.500 % 0.0-0.9 [facility] Comment on above: IG% - Immature Granu locytes (promyelocytes, myelocytes and metamyelocytes) > 1% indicates that a LEFT SHIFT is Present. MCH (RBC) [Entitic mass] 32.6 pg 27.0-32.0 [facility] Nucleated RBC/100 WBC (Bld) [Ratio] 0 % 0-5 [facility] MCHC Auto (RBC) [Mass/Vol]Or dered By: Dr. Winkler on 03-08-2023 MCHC (RBC) [Mass/Vol] 33.6 g/dL 32-[address] [facility] No Panel InformationOrdered By: Dr. Winkler on 03-08-2023 Troponin I High Sensitivity 8 pg/mL 3.0-78.0 [facility] Comment on above: Please Note: New Renetta t Units and Gender Specific Reference Ranges. For more information see Policy Stat Procedure [place] High Sensitivity Troponin (TNIH) and attachments. D-Dimer Quantitative (PE/DVT) 0.30 FEU/ug/m 0.27-0.49 [facility] Comment on above: NORMAL D-Dimer level (<0.50) indicates no DVT or PE. Estimated Creatinine Clearance Calc 69.02 ml/min [facility] Estimated GFR (MDRD) Amer 64 mL/min >60 [facility] Comment on above: GFR Calc Estimated GFR (MDRD) Non-Af Amer 53 mL/min >60 [facility] Comment on above: Non- GFR Calc Platelets bldOrdered By: Dr. Winkler on 03-08-2023 Platelets (Bld) [#/Vol] 205 10*3/uL 150-450 [facility] Serum or plasma calcium khanh urement (mass/volume)Ordered By: Dr. Winkler on 03-08-2023 Calcium [Mass/Vol] 8.6 mg/dL 8.5-10.1 [facility] Serum or plasma creatinine m easurement (mass/volume)Ordered By: Dr. Winkler on 03-08-2023 Creatinine [Mass/Vol] 1.66 mg/dL 0.70-1.[address] [facility] Comment on above: The validity of the calculated GFR & GFRAA in patients over 70 years has not been determined. Clinical correlation is essential. Serum or plasma urea nitroge n measurement (mass/volume)Ordered By: Dr. Winkler on 03-08-2023 Urea nitrogen [Mass/Vol] 26 mg/dL 7-18 [facility] Thin prep Papanicolaou smear with manual screeningOrdered By: Dr. Winkler on 03-08-2023 Thin prep Papanicolaou smear with manual screening 6 5-15 [facility] Absolute lymphocyte countOrd ered By: Dr. Ann on 02-19-2023 Lymphocytes Auto (Unsp spec) [#/Vol] 1.96 10*3/uL 0.83-4.51 [facility] Basophil percentageOrdered B y: Dr. Ann on 02-19-2023 Basophils/100 WBC (Bld) 0.4 % 0-1 [facility] Chloride [Moles/Vol] 108 mmol/L 98-107 [facility] Eosinophils/100 WBC (Bld) 1.5 % 0-5 [facility] Glucose [Mass/Vol] 86 mg/dL 74-106 [facility] Neutrophils (Bld) [#/Vol] 12.7 10*3/uL 2.0-7.7 [facility] Neutrophils/100 WBC (Bld) 78.7 % 47-70 [facility] Potassium [Moles/Vol] 3.7 mmol/L 3.5-5.[address] [facility] Sodium [Moles/Vol] 138 mmol/L 136-145 [facility] WBC (Bld) [#/Vol] 16.1 10*3/uL 4.4-11.0 [facility] Blood erythrocytes count (nu mber/volume)Ordered By: Dr. Ann on 02-19-2023 RBC (Bld) [#/Vol] 5.15 10*6/uL 4.6-6.2 [facility] Blood hemoglobin measurement (mass/volume)Ordered By: Dr. Ann on 02-19-2023 Hemoglobin (Bld) [Mass/Vol] 17.3 g/dL 13.0-16.5 [facility] Blood lymphocytes/100 leukoc ytesOrdered By: Dr. Ann on 02-19-2023 Lymphocytes/100 WBC (Bld) 12.2 % 19-41 [facility] Blood monocytes/100 leukocyt esOrdered By: Dr. Ann on 02-19-2023 Monocytes/100 WBC (Bld) 6.6 % 0-10 [facility] Blood platelet mean volumeOr dered By: Dr. Ann on 02-19-2023 Platelet mean volume (Bld) [Entitic vol] 10.1 fL 6.2-12.0 [facility] COVID-19 virus antigen assay Ordered By: Dr. Ann on 02-19-2023 SARS-CoV-2 (COVID-19) Ag IA.rapid Ql (Resp) [facility] Determination of erythrocyte mean corpuscular volume (MCV)Ordered By: Dr. Ann on 02-19-2023 MCV (RBC) [Entitic vol] 95.5 fL 80-94 [facility] Hematocrit Auto (Bld) [Volum e fraction]Ordered By: Dr. Ann on 02-19-2023 Hematocrit (Bld) [Volume fraction] 49.2 % 40-54 [facility] Laboratory - Chemistry and C hemistry - challengeOrdered By: Dr. Ann on 02-19-2023 CO2 [Moles/Vol] 25.0 mmol/L 21.0-32.0 [facility] Urea nitrogen/Creatinine [Mass ratio] 10.7 mg/mg 10-20 [facility] Laboratory - Hematology and Cell countsOrdered By: Dr. Ann on 02-19-2023 Erythrocyte distribution width (RBC) [Entitic vol] 41.1 fL 35.1-43.9 [facility] Erythrocyte distribution width (RBC) [Ratio] 11.7 % 11.6-14.6 [facility] Immature granulocytes/100 WBC (Bld) 0.600 % 0.0-0.9 [facility] Comment on above: IG% - Immature Granu locytes (promyelocytes, myelocytes and metamyelocytes) > 1% indicates that a LEFT SHIFT is Present. MCH (RBC) [Entitic mass] 33.6 pg 27.0-32.0 [facility] Nucleated RBC/100 WBC (Bld) [Ratio] 0 % 0-5 [facility] MCHC Auto (RBC) [Mass/Vol]Or dered By: Dr. Ann on 02-19-2023 MCHC (RBC) [Mass/Vol] 35.2 g/dL 32-[address] [facility] No Panel InformationOrdered By: Dr. Ann on 02-19-2023 Estimated Creatinine Clearance Calc 72.06 ml/min [facility] Estimated GFR (MDRD) Amer 67 mL/min >60 [facility] Comment on above: GFR Calc Estimated GFR (MDRD) Non-Af Amer 56 mL/min >60 [facility] Comment on above: Non- GFR Calc Troponin I High Sensitivity 9 pg/mL 3.0-78.0 [facility] Comment on above: Please Note: New Renetta t Units and Gender Specific Reference Ranges. For more information see Policy Stat Procedure [place] High Sensitivity Troponin (TNIH) and attachments. Platelets bldOrdered By: Dr. Ann on 02-19-2023 Platelets (Bld) [#/Vol] 256 10*3/uL 150-450 [facility] Serum or plasma calcium khanh urement (mass/volume)Ordered By: Dr. Ann on 02-19-2023 Calcium [Mass/Vol] 9.3 mg/dL 8.5-10.1 [facility] Serum or plasma creatinine m easurement (mass/volume)Ordered By: Dr. Ann on 02-19-2023 Creatinine [Mass/Vol] 1.59 mg/dL 0.70-1.[address] [facility] Comment on above: The validity of the calculated GFR & GFRAA in patients over 70 years has not been determined. Clinical correlation is essential. Serum or plasma urea nitroge n measurement (mass/volume)Ordered By: Dr. Ann on 02-19-2023 Urea nitrogen [Mass/Vol] 17 mg/dL 7-18 [facility] Thin prep Papanicolaou smear with manual screeningOrdered By: Dr. Ann on 02-19-2023 Thin prep Papanicolaou smear with manual screening 5 5-15 [facility] ED Note-Provideron 8 ED Note-Provider [facility] ([place]) Pat Eduon 12-28-2017 [facility] ([place]) Patient Summary Documentson 12-28-2017 Patient Summary Documents [facility] ([place]) Vital Signs Date Time Vital Sign Value Performing Clinician Faci lity 04-28-2025 16:05-0400 Body temperature 98.3 [degF] No Primary Care Physician [facility] 04-28-2025 16:05-0400 Diastolic blood pressure 90 mm[Hg] No Primary Care Physician [facility] 04-28-2025 16:05-0400 Heart rate 98 /min No Primary Care Physician [facility] 04-28-2025 16:05-0400 Respiratory rate 16 /min No Primary Care Physician [facility] 04-28-2025 16:05-0400 SaO2% (BldA) [Mass fraction] 99 % No Primary Care Physician [facility] 04-28-2025 16:05-0400 Systolic blood pressure 133 mm[Hg] No Primary Care Physician [facility] 04-28-2025 13:18-0400 Body height 177.8 cm No Primary Care Physician [facility] 04-28-2025 13:18-0400 Body mass index (BMI) [Ratio] 43.2 kg/m2 No Primary Care Physician [facility] 04-28-2025 13:18-0400 Body weight 136.67 kg No Primary Care Physician [facility] 04-21-2025 10:44-0400 Body temperature 97.9 [degF] No Primary Care Physician [facility] 04-21-2025 10:44-0400 Diastolic blood pressure 109 mm[Hg] No Primary Care Physician [facility] 04-21-2025 10:44-0400 Heart rate 79 /min No Primary Care Physician [facility] 04-21-2025 10:44-0400 Respiratory rate 16 /min No Primary Care Physician [facility] 04-21-2025 10:44-0400 SaO2% (BldA) [Mass fraction] 97 % No Primary Care Physician [facility] 04-21-2025 10:44-0400 Systolic blood pressure 186 mm[Hg] No Primary Care Physician [facility] 04-21-2025 07:49-0400 Body height 177.8 cm No Primary Care Physician [facility] 04-21-2025 07:49-0400 Body mass index (BMI) [Ratio] 43 kg/m2 No Primary Care Physician [facility] 04-21-2025 07:49-0400 Body weight 136 kg No Primary Care Physician [facility] 04-16-2025 18:09-0400 Body temperature 98.2 [degF] No Primary Care Physician [facility] 04-16-2025 18:09-0400 Diastolic blood pressure 108 mm[Hg] No Primary Care Physician [facility] 04-16-2025 18:09-0400 Heart rate 82 /min No Primary Care Physician [facility] 04-16-2025 18:09-0400 Respiratory rate 16 /min No Primary Care Physician [facility] 04-16-2025 18:09-0400 SaO2% (BldA) [Mass fraction] 100 % No Primary Care Physician [facility] 04-16-2025 18:09-0400 Systolic blood pressure 174 mm[Hg] No Primary Care Physician [facility] 04-16-2025 17:28-0400 Body height 177.8 cm No Primary Care Physician [facility] 04-16-2025 17:28-0400 Body mass index (BMI) [Ratio] 43.5 kg/m2 No Primary Care Physician [facility] 04-16-2025 17:28-0400 Body weight 137.75 kg No Primary Care Physician [facility] 03-30-2025 14:35-0400 Body temperature 97.6 [degF] No Primary Care Physician [facility] 03-30-2025 14:35-0400 Diastolic blood pressure 108 mm[Hg] No Primary Care Physician [facility] 03-30-2025 14:35-0400 Heart rate 73 /min No Primary Care Physician [facility] 03-30-2025 14:35-0400 Respiratory rate 18 /min No Primary Care Physician [facility] 03-30-2025 14:35-0400 SaO2% (BldA) [Mass fraction] 98 % No Primary Care Physician [facility] 03-30-2025 14:35-0400 Systolic blood pressure 173 mm[Hg] No Primary Care Physician [facility] 03-30-2025 13:00-0400 Body height 177.8 cm No Primary Care Physician [facility] 03-30-2025 13:00-0400 Body mass index (BMI) [Ratio] 43.3 kg/m2 No Primary Care Physician [facility] 03-30-2025 13:00-0400 Body weight 136.98 kg No Primary Care Physician [facility] 12-22-2024 13:23-0500 Body temperature 98.2 [degF] No Primary Care Physician [facility] 12-22-2024 13:23-0500 Diastolic blood pressure 102 mm[Hg] No Primary Care Physician [facility] 12-22-2024 13:23-0500 Heart rate 89 /min No Primary Care Physician [facility] 12-22-2024 13:23-0500 Respiratory rate 15 /min No Primary Care Physician [facility] 12-22-2024 13:23-0500 SaO2% (BldA) [Mass fraction] 99 % No Primary Care Physician [facility] 12-22-2024 13:23-0500 Systolic blood pressure 155 mm[Hg] No Primary Care Physician [facility] 12-06-2024 04:31-0500 Body temperature 98.7 [degF] No Primary Care Physician [facility] 12-06-2024 04:31-0500 Diastolic blood pressure 108 mm[Hg] No Primary Care Physician [facility] 12-06-2024 04:31-0500 Heart rate 79 /min No Primary Care Physician [facility] 12-06-2024 04:31-0500 Respiratory rate 18 /min No Primary Care Physician [facility] 12-06-2024 04:31-0500 SaO2% (BldA) [Mass fraction] 97 % No Primary Care Physician [facility] 12-06-2024 04:31-0500 Systolic blood pressure 181 mm[Hg] No Primary Care Physician [facility] 03-10-2024 11:52-0400 Body temperature 97 [degF] Ignacia Justice SUBSTANCE ABUSE THERAPIST.FIELD TECHNICAL SUPPORT CONSULTANT Work Phone: [facility] 03-10-2024 11:52-0400 Body weight 143 kg Ignacia Justice SUBSTANCE ABUSE THERAPIST.FIELD TECHNICAL SUPPORT CONSULTANT Work Phone: [facility] 03-10-2024 11:52-0400 Diastolic blood pressure 94 mm[Hg] Ignacia Justice SUBSTANCE ABUSE THERAPIST.FIELD TECHNICAL SUPPORT CONSULTANT Work Phone: [facility] 03-10-2024 11:52-0400 Heart rate 68 /min Ignacia Justice SUBSTANCE ABUSE THERAPIST.FIELD TECHNICAL SUPPORT CONSULTANT Work Phone: [facility] 03-10-2024 11:52-0400 Respiratory rate 22 /min Ignacia Justice SUBSTANCE ABUSE THERAPIST.FIELD TECHNICAL SUPPORT CONSULTANT Work Phone: [facility] 03-10-2024 11:52-0400 SaO2% (BldA) [Mass fraction] 97 % Ignacia Justice SUBSTANCE ABUSE THERAPIST.FIELD TECHNICAL SUPPORT CONSULTANT Work Phone: [facility] 03-10-2024 11:52-0400 Systolic blood pressure 143 mm[Hg] Ignacia Justice SUBSTANCE ABUSE THERAPIST.FIELD TECHNICAL SUPPORT CONSULTANT Work Phone: [facility] 10-20-2023 14:46-0500 Body temperature 98.4 [degF] Angel Athy PA-C Work Phone: [facility] 10-20-2023 14:46-0500 Body weight 138.07 kg Angel Athy PA-C Work Phone: [facility] 10-20-2023 14:46-0500 Diastolic blood pressure 108 mm[Hg] Angel Athy PA-C Work Phone: [facility] 10-20-2023 14:46-0500 Heart rate 108 /min Angel Athy PA-C Work Phone: [facility] 10-20-2023 14:46-0500 Respiratory rate 16 /min Angel Alcarazy PA-C Work Phone: [facility] 10-20-2023 14:46-0500 SaO2% (BldA) [Mass fraction] 97 % Angel Alcarazy PA-C Work Phone: [facility] 10-20-2023 14:46-0500 Systolic blood pressure 180 mm[Hg] Angel Alcarazy PA-C Work Phone: [facility] 10-12-2023 21:48-0500 Respiratory rate 14 /min [facility] 10-12-2023 20:13-0500 Heart rate 89 /min [facility] 10-12-2023 19:19-0500 Body height 177.8 cm [facility] 10-12-2023 19:19-0500 Body mass index (BMI) [Ratio] 43.4 kg/m2 [facility] 10-12-2023 19:19-0500 Body temperature 97.2 [degF] [facility] 10-12-2023 19:19-0500 Body weight 137.52 kg [facility] 10-12-2023 19:19-0500 Diastolic blood pressure 103 mm[Hg] [facility] 10-12-2023 19:19-0500 SaO2% (BldA) [Mass fraction] 96 % [facility] 10-12-2023 19:19-0500 Systolic blood pressure 166 mm[Hg] [facility] 05-25-2023 10:43-0400 Body height 177.8 cm [facility] 05-25-2023 10:43-0400 Body mass index (BMI) [Ratio] 41.4 kg/m2 [facility] 05-25-2023 10:43-0400 Body temperature 98 [degF] [facility] 05-25-2023 10:43-0400 Body weight 131.08 kg [facility] 05-25-2023 10:43-0400 Diastolic blood pressure 101 mm[Hg] [facility] 05-25-2023 10:43-0400 Heart rate 76 /min [facility] 05-25-2023 10:43-0400 Respiratory rate 14 /min [facility] 05-25-2023 10:43-0400 SaO2% (BldA) [Mass fraction] 97 % [facility] 05-25-2023 10:43-0400 Systolic blood pressure 151 mm[Hg] [facility] 03-08-2023 16:46-0400 Respiratory rate 16 /min [facility] 03-08-2023 15:00-0400 Diastolic blood pressure 104 mm[Hg] [facility] 03-08-2023 15:00-0400 Heart rate 83 /min [facility] 03-08-2023 15:00-0400 SaO2% (BldA) [Mass fraction] 96 % [facility] 03-08-2023 15:00-0400 Systolic blood pressure 150 mm[Hg] [facility] 03-08-2023 12:29-0400 Body height 177.8 cm [facility] 03-08-2023 12:29-0400 Body mass index (BMI) [Ratio] 35.9 kg/m2 [facility] 03-08-2023 12:29-0400 Body temperature 96.9 [degF] [facility] 03-08-2023 12:29-0400 Body weight 113.39 kg [facility] 02-19-2023 20:02-0400 Diastolic blood pressure 89 mm[Hg] [facility] 02-19-2023 20:02-0400 Heart rate 95 /min [facility] 02-19-2023 20:02-0400 Respiratory rate 18 /min [facility] 02-19-2023 20:02-0400 SaO2% (BldA) [Mass fraction] 93 % [facility] 02-19-2023 20:02-0400 Systolic blood pressure 150 mm[Hg] [facility] 02-19-2023 17:39-0400 Body height 177.8 cm [facility] 02-19-2023 17:39-0400 Body mass index (BMI) [Ratio] 38.2 kg/m2 [facility] 02-19-2023 17:39-0400 Body temperature 97 [degF] [facility] 02-19-2023 17:39-0400 Body weight 121.1 kg [facility] 04-19-2022 15:01-0400 Diastolic blood pressure 79 mm[Hg] [facility] Work Phone: 04-19-2022 15:01-0400 Heart rate 84 /min [facility] Work Phone: 04-19-2022 15:01-0400 Respiratory rate 17 /min [facility] Work Phone: 04-19-2022 15:01-0400 SaO2% (BldA) [Mass fraction] 97 % [facility] Work Phone: 04-19-2022 15:01-0400 Systolic blood pressure 152 mm[Hg] [facility] Work Phone: 04-19-2022 12:55-0400 Body height 180.34 cm [facility] Work Phone: 04-19-2022 12:55-0400 Body mass index (BMI) [Ratio] 39.7 kg/m2 [facility] Work Phone: 04-19-2022 12:55-0400 Body temperature 98.5 [degF] [facility] Work Phone: 04-19-2022 12:55-0400 Body weight 129.27 kg [facility] Work Phone: Encounters Encounter Date Encounter Type Care Provider Facility Start: 04-28-2025 End: 04-28-2025 Emergency department patient visit No Primary Care Physician -Emergency Department Work Phone: Start: 04-21-2025 End: 04-21-2025 Emergency department patient visit No Primary Care Physician -Emergency Department Work Phone: Start: 04-16-2025 End: 04-16-2025 Emergency department patient visit No Primary Care Physician -Emergency Department Work Phone: Start: 03-30-2025 End: 03-30-2025 Emergency department patient visit No Primary Care Physician -Emergency Department Work Phone: Start: 12-22-2024 ambulatory Ed Physician Provider F acility:[facility] Start: 12-22-2024 End: 12-22-2024 Emergency department patient visit Dr. Ryan Crump MD -Emergency Department Work Phone: Start: 12-06-2024 End: 12-06-2024 Emergency department patient visit Dr. Chandana Huang DO -Emergency Department Work Phone: Start: 10-29-2024 End: 11-01-2024 Evaluation and management of inpatient 837 NO FAMILY PHYSICIAN Facility:[id number] Start: 03-10-2024 End: 03-10-2024 ambulatory Facility:[facility] Start: 03-10-2024 End: 03-10-2024 Patient encounter procedure Ignacia Justice SUBSTANCE ABUSE THERAPIST.FIELD TECHNICAL SUPPORT CONSULTANT Work Phone: [facility] Comment on above: Gouty arthritis of r ight great toe (Primary Dx) Start: 10-20-2023 End: 10-20-2023 ambulatory Facility:[facility] Start: 10-20-2023 End: 10-20-2023 Patient encounter procedure Angel Fried PA-C Work Phone: [facility] Comment on above: COVID-19 (Primary Dx ); Hypertension, unspecified type Start: 10-12-2023 End: 10-12-2023 Emergency department patient visit [facility]-Emergency Department Work Phone: Start: 06-14-2023 End: 06-14-2023 ambulatory Facility:[facility] Start: 05-25-2023 End: 05-25-2023 Emergency department patient visit [facility]-Emergency Department Work Phone: Start: 03-08-2023 End: 03-08-2023 Patient encounter procedure Marylu Baer SUBSTANCE ABUSE THERAPIST.FIELD TECHNICAL SUPPORT CONSULTANT Work Phone: [facility] Comment on above: Chest pain, unspecif ied type (Primary Dx); Bloody stool Start: 03-08-2023 End: 03-08-2023 Emergency department patient visit [facility]Emergency Department Start: 02-19-2023 End: 02-19-2023 Emergency department patient visit [facility]-Emergency Department Start: 04-19-2022 End: 04-19-2022 Emergency department patient visit [facility]-Emergency Department Start: 07-25-2021 End: 07-25-2021 [facility] Start: 05-29-2021 End: 05-29-2021 Emergency department patient visit [facility] Start: 12-28-2017 End: 12-28-2017 Emergency department patient visit NONE PHYSICIAN Facility:A Procedures Date Procedure Procedure Detail Performing Clinician Start: 04-28-2025 X-ray of ankle, three or more views No Primary Care Physician Start: 04-28-2025 X-ray of foot, three or more views No Primary Care Physician Start: 04-21-2025 Estimated creatinine clearance No Primary [...] DTaP,Tdap,Td Vaccine (9 - Td or Tdap) [facility] Start: 04-28-2025 [facility] Start: 04-21-2025 [facility] Start: 04-16-2025 [facility] Start: 03-30-2025 [facility] Start: 12-22-2024 [facility] Start: 12-06-2024 [facility] Start: 12-06-2024 Respiratory secretion precautions [facility] Start: 06-26-2024 Influenza vaccination Influenza Vaccine (Season Ended) [facility] Start: 10-26-2023 Behavioral Health Screening Behavioral Health Screening [facility] Start: 10-12-2023 [facility] Start: 06-26-2023 Covid-19 Vaccine ( season) Covid-19 Vaccine ( season) [facility] Start: 06-26-2023 Influenza vaccination [facility] Start: 03-08-2023 Electrocardiographic procedure [facility] Start: 03-08-2023 [facility] Start: 02-19-2023 [facility] Start: 02-19-2023 End: 02-19-2023 [facility] Start: 10-26-2022 DEPRESSION ASSESSMENT DEPRESSION ASSESSMENT [facility] Start: 2014 Urine microalbumin profile DTAP,TDAP,TD (1 - Tdap) [facility] Start: 2013 HEPATITIS C SCREENING HEPATITIS C SCREENING [facility] Start: 2013 Hepatitis C screening Hepatitis C Screening [facility] Start: 2013 HIV SCREENING HIV SCREENING [facility] Start: 2013 HIV screening HIV Screening [facility] Start: 2001 PNEUMOCOCCAL (1 - PCV) PNEUMOCOCCAL (1 - PCV) [facility] Start: 2001 Pneumococcal vaccination Pneumococcal Vaccine (1 of 2 - PCV) [facility] Start: 04-22-1996 COVID-19 VACCINE (#1) COVID-19 VACCINE (#1) [facility] Start: 1995 HEPATITIS B (1 of 3 - 3-dose series) HEPATITIS B (1 of 3 - 3-dose series) [facility] Patient Education [facility] Work Phone: Patient referral [facility] Work Phone: Immunizations Immunization Date Immunization Notes Care Provider Fa cility 05-29-2023 tetanus toxoid, redu chloé diphtheria toxoid, and acellular pertussis vaccine, adsorbed [facility] 07-04-2015 tetanus toxoid, redu chloé diphtheria toxoid, and acellular pertussis vaccine, adsorbed [facility] 07-17-2009 influenza virus vaccine, unspecified formulation Angel Fried PA-C Work Phone: [facility] Payers Date Payer Category Payer Self-pay [id number] 2022 Medicaid [facility] MEDICAID [id number] 2022-Present [phone] [address] [place] [address] Medicaid [id number] 2013 Unknown [id number] 1995 Unknown [id number] 1995 Unknown [id number] 1995 Unknown [id number] 1959 Unknown [id number] Unknown [id number] Unknown [id number] Unknown [id number] Unknown [id number] Unknown [id number] Unknown [id number] Unknown [id number] Social History Date Type Detail Facility Start: 04-19-2022 End: 10-12-2023 Tobacco smoking status NHIS Unknown if ever smoked [facility] Start: 1995 Sex Assigned At Male W [facility] Start: 08-19-2015 End: 04-28-2025 Tobacco smoking status NHIS Smokes tobacco daily [facility] History of tobacco use Cigarette Smoker [facility] Start: 08-19-2015 End: 03-10-2024 Cigarettes smoked current (pack per day) - Reported 0.5 [facility] Start: 08-19-2015 End: 03-10-2024 Alcohol intake Current drinker of alcohol (finding) [facility] Start: 08-19-2015 Alcohol Comment weekly [facility] Start: 1995 Sex Assigned At Not on file C [facility] Start: 03-05-2014 Rare [facility] Start: 03-05-2014 None [facility] Start: 03-05-2014 With Family [facility] Start: 10-20-2023 End: 03-10-2024 Tobacco use panel [facility] Mental Status Date Assessment Result Facility 12-06-2024 Cognitive function Level Of Cons ciousness Awake;Alert;Appropriate;Follow s Commands [facility] Work Phone: 03-08-2023 Cognitive function Awake;Alert;A ppropriate;Follow s Commands [facility] Work Phone: Clinical Notes 02-19-2023 to 04-28-2025 Ignacia Justice APRN.FIELD TECHNICAL SUPPORT CONSULTANT - 03/10/2024 12:02 PM Angel Helm PA-C - 10/20/2023 4:21 PM EST Note Date & Type Note Facility 04-28-2025 Radiology Diagnostic study note [facility] Imaging Services [address] [place], [place] [address] Foot min 3 Views MR#: [id number] Acct: [id number] Name: CHANDANA RAYMUNDO Rep #: [id number] : 1995 M 29 From: Mena Conway MD PCP: Care Physician,No Primary Status: REG ER Study:Foot min 3 Views Date of Exam: 02/17 Exam# [id number] Ordering Dr: Kyara Fischer EXAM: XR Left Foot Complete, 3 or More Views CLINICAL INDICATION: PAIN TECHNIQUE: Frontal, lateral and oblique views of the left foot. COMPARISON: No relevant prior studies available. FINDINGS: BONES/JOINTS: See below. SOFT TISSUES: Soft tissue swelling without acute fracture. No radiopaque foreign body. RAD/Foot min 3 Views IMPRESSION: 1. Soft tissue swelling without acute fracture. 2. If symptoms persist, further evaluation with CT is recommended. Reading Location: [facility] CC: PRADEEP Monroe; No Primary Care Physician ~ Mechanical Engineering Manager: Signed [facility] 04-28-2025 Radiology Diagnostic study note [facility] Imaging Services [address] [place], [place] [id number] Ankle min 3 Views MR#: [id number] Acct: [id number] Name: CHANDANA RAYMUNDO Rep #: [id number] : 1995 M 29 From: Mena Conway MD PCP: Care Physician,No Primary Status: REG ER Study:Ankle min 3 Views Date of Exam: Exam# [id number] Ordering Dr: Kyara Fischer EXAM: XR Left Ankle Complete, 3 or More Views CLINICAL INDICATION: PAIN TECHNIQUE: Frontal, lateral and oblique views of the left ankle. COMPARISON: No relevant prior studies available. FINDINGS: BONES/JOINTS: See below. SOFT TISSUES: Soft tissue swelling without acute fracture. RAD/Ankle min 3 Views IMPRESSION: 1. Soft tissue swelling without acute fracture. 2. If symptoms persist, further evaluation with CT is recommended. Reading Location: [facility] CC: PRADEEP Monroe; No Primary Care Physician ~ Mechanical Engineering Manager: Signed [facility] 04-21-2025 Discharge summary [facility] 04-21-2025 Radiology Diagnostic study note [facility] Imaging Services [address] [place] [address] Ankle min 3 Views MR#: [id number] Acct: [id number] Name: CHANDANA RAYMUNDO Rep #: [id number] : 1995 M 29 From: Esteban Lopez MD PCP: Care Physician,No Primary Status: REG ER Study:Ankle min 3 Views Date of Exam: Exam# [id number] Ordering Dr: Estuardo Maloney MD PROCEDURE: ANKLE MIN 3 VIEWS 04/21/2025 REASON FOR EXAM: PAIN TECHNIQUE: ANKLE MIN 3 VIEWS COMPARISON: None FINDINGS: Bones: No fracture seen. Joints: Normal alignment. Mortise appears intact. No effusion. Soft tissues: Soft tissues are unremarkable. Other: RAD/Ankle min 3 Views IMPRESSION: NEGATIVE ANKLE SERIES Reading Location: [id number] CC: Dr. Sung Maloney MD; No Primary Care Physician ~ Mechanical Engineering Manager: Signed [facility] 03-30-2025 Radiology Diagnostic study note [facility] Imaging Services [address] [place], [place] [address] Chest 1 View (Portable) MR#: [id number] Acct: [id number] Name: CHANDANA RAYMUNDO Rep #: [id number] : 1995 M 29 From: Elicia Dial MD PCP: Care Physician,No Primary Status: REG ER Study:Chest 1 View (Portable) Date of Exam: 03/30/25 Exam# [id number] Ordering Dr: Geovani Duarte DO PROCEDURE: CHEST [...] 1. No active cardiopulmonary disease. Reading Location: [place] [address] CC: Dr. Cruz Duarte DO; No Primary Care Physician ~ Mechanical Engineering Manager: Signed [facility] 10-29-2024 Note ED Nursing Discharge Summary Entered On: 10/29/2024 22:04 EST Performed On: 10/29/2024 21:36 EST by Julieta Tucker RN SC Information [id number] ED IV's : No IV ED IV Site Assessment : No IV ED Vitals Completed : Yes ED Final Assessment Completed : Yes ED Progress Note Completed : Yes Complete all PRN/Pain response forms? : N/A ED Disassociate Patient from Monitor : N/A Updated Depart Time : Yes Mode of Discharge : Stretcher Discharge Transportation : Ground ambulance ED Belongings sent w patient 002304 : Yes Valuables Complete : No Julieta Tucker RN - 10/29/2024 22:03 EST Education Instructions given to : Patient TeachBack Methodology : Printed Material Barriers to Learning : None evident Julieta Tucker RN - 10/29/2024 22:03 EST Post-Hospital Education Adult Grid Plan of Care : Verbalizes understanding Julieta Tucker RN - 10/29/2024 22:03 EST Valuables/Belongings Belongings Sent Home With : sent to [employer], [employer], cellphone car keys Julieta Tucker RN - 10/29/2024 22:03 EST ED Assistance Summary Assistance Given? : No Julieta Tucker RN - 10/29/2024 22:03 EST [facility] 03-10-2024 Note HNO ID: [id number] Author: IGNACIA JUSTICE APRN.FIELD TECHNICAL SUPPORT CONSULTANT Service: ? Author Type: Nurse Practitioner Type: Progress Notes Filed: 03/10/2024 13:15 Note Text: This note was created using NoteWriter. Subjective Chandana Raymundo is a 28 year old male. 28 year old male with PMH gout presents for complaints gout Acute onset of symptoms was 2 days ago +right great toe +redness +swelling +tenderness Denies trauma or injury History of gout, Endorses feels similar to prior bouts States he was at a republic[employer] and there was a cook out. Has used Ibuprofen The history is provided by the patient. No data warehouse manager was used. Pain (foot) Pain location: right [...] Right great to (more content not included)... [facility] 03-10-2024 History of Present illness Narrative This note was created using Evostor[employer]. Subjective Chandana Raymundo is a 28 year old male. 28 year old male with PMH gout presents for complaints gout Acute onset of symptoms was 2 days ago +right great toe +redness +swelling +tenderness Denies trauma or injury History of gout, Endorses feels similar to prior bouts States he was at a republic[employer] and there was a cook out. Has used Ibuprofen The history is provided by the patient. No data warehouse manager was used. Pain (foot) Pain location: right [...] Avoid triggers F/U with PCP Ignacia Justice APRN.FIELD TECHNICAL SUPPORT CONSULTANT documented in this encounter [facility] 10-20-2023 Note HNO ID: [id number] Author: Angel Fried PA-C Service: ? Author Type: Physician Form Setter Type: Progress Notes Filed: 10/20/2023 4:25 PM Note Text: This note was created using [employer] Subjective Chandana Raymundo is a 27 year [...] symptoms of hypertension today. Angel Fried PA-C [facility] 10-20-2023 History of Present illness Narrative This note was created using [employer]. Subjective Chandana Raymundo is a 27 year [...] Angel Fried PA-C documented in this encounter [facility] 10-12-2023 Discharge summary Note Date/Time October 12, 2023 7:51pm [facility] Medical Records Department [address] [place] [address] Emergency Department Summary 10/12/23 MR#: [id number] Acct: [id number] Name: CHANDANA RAYMUNDO Rep #:[id number] : [...] 77.9 H Lymph % (Auto) 14.1 L Morgan % (Auto) 5.9 Eos % (Auto) 1.0 [...] Signed: Honorio Ponce DO at 20:31 EST , Treatment and Re-Evaluation :: Patient had [...] days. He also was instructed follow-up with [facility] in 1 to 2 weeks [...] are elevated. You should follow-up at the [facility] for recheck in 1 to 2 weeks Disposition Disposition: Home, Self Care What to do if you have Problems For any increased pain, shortness of breath, bleeding, nausea or vomiting, chestpain, or any unexpected problems, contact your Primary Care Provider. Call [facility] ([phone]) or report to the closest Emergency Room. Call 911 if necessary. 10/12/232133 <Electronically signed by Valeriy Mercer MD> Cosigner Signature (if applicable): CC: No Primary Care Physician ~ Signed [facility] Work Phone: 1(856) 172-447508-20-2023 NoteHNO ID: [id number] Author: Tiffany Samano APRN.FIELD TECHNICAL SUPPORT CONSULTANT Service: ? Author Type: Nurse Practitioner Type: [...] with it. He verbalized understanding. Tiffany Samano APRN.[facility]05-14-[address] Winkler [facility] March 08, 2023 4:21pm Note Date/Time March 08, 2023 12:38 pm [facility] Medical Records Department [address] [place] [address] Emergency Department Summary 03/08/23 MR#: [id number] Acct: [id number] Name: CHANDANA RAYMUNDO Rep #:[id number] : 1995 27 From: Chad Ashby PCP: Care Physician,No Primary Status :REG ER Location: ED HPI History of Present Illness Chief Complaint: Chest Pain [facility] Medical History (Updated 03/08/23 @ 16:17 by [...] Oxygen Delivery Method Room Air Room Air [facility] Narrative Medical decision making narrative: HISTORY OF [...] reviewed, Vital signs reviewed Constitutional: please see [facility] HENT: MMM Eyes: Pupils equal round and [...] pathognomonic EKG changes (no diffuse ST elevations, NE depressions). GI etiology (i.e. Boerhaave syndrome) less [...] % (Auto) 69.1 Lymph % (Auto) 19.4 Morgan % (Auto) 8.3 Eos % (Auto) 2.1 [...] (Auto) Neut % (Auto) Lymph % (Auto) Morgan % (Auto) Eos % (Auto) Baso % [...] Referrals: Adams Cartagena MD [Med Staff - American Indian Policy Specialist] - Activity Restrictions/Additional Instructions: Thank you for [...] your Primary Care Provider. Call [facility] ([phone]) or report to the closest Emergency Room. Call 911 if necessary. 03/08/23 1621 <Electronically signed by Chad Winkler DO> Cosigner Signature (if applicable): CC: No Primary Care Physician ~ Signed [facility] Work Phone: 1(573) 655-134205-14-2023 History of Present illness Narrative* Marylu Baer APRN.BONNY - 03/08/2023 12:23 PM EDT Came [...] wants to take himself. [facility] Ann [facility] February 19, 2023 9:03pm Note Date/Time February 19, 2023 7:0 6pm [facility] Medical Records Department [address] [place] [address] Emergency Department Summary 02/19/23 MR#: [id number] Acct: [id number] Name: KATALINABRIANCHANDANAULICES BAER Rep #:[id number] : 1995 27 From: [...] history of DVT/PE and no risk factors. [facility] Medical History Asthma attack Liver abscess Home [...] 78.7 H Lymph % (Auto) 12.2 L Morgan % (Auto) 6.6 Eos % (Auto) 1.5 [...] 18:36 EDT Reading Location ID and State: [facility] / [place] , Service support , Discharge Plan Triage [...] Referrals: Basilio Dietz DO [Med Staff - American Indian Policy Specialist] - 3-5 Days Care Physician,No Primary [Primary Care Provider] - Disposition Disposition: Home, Self Care What to do if you have Problems For any increased pain, shortness of breath, bleeding, nausea or vomiting, chestpain, or any unexpected problems, contact your Primary Care Provider. Call [facility] ([phone]) or report to the closest Emergency Room. Call 911 if necessary. 02/19/232102 <Electronically signed by Ryley Ann DO> Cosigner Signature (if applicable): CC: No Primary Care Physician ~ Signed [facility] Work Phone: Discharge summary Author Sung Maloney [facility] Note Date/Time April 21, 2025 11:0 6am [facility] Medical Records Department [address] [place] [address] Emergency Department Summary 04/21/25 MR#: [id number] Acct: [id number] Name: CHANDANA RAYMUNDO Rep #:[id number] : [...] symptoms. No history of DVT or PE. [facility] Medical History (Updated 04/21/25 @ 11:03 by [...] my interpretation and according to the ultrasound cad technician, the DVT scan is negative. These [...] and I both agree, he probably told john accidentally because he was in a lot [...] is planning on following up at the [facility]. I reinforced the importance of following up [...] 87.3 H Lymph % (Auto) 7.0 L Morgan % (Auto) 5.0 Eos % (Auto) 0.2 [...] 08:22 IMPRESSION: NEGATIVE ANKLE SERIES Reading Location: [id number] Discharge Plan Triage Chief Complaint: Lower Extremity [...] Primary Care Provider: Care Physician,No [facility] - As soon as possible Activity Restrictions/Additional Instructions: If the steroids make your ankle worse or you develop a fever, stop them and return to the ER immediately. Print Language: Iraqi Disposition Disposition: Home, Self Care What to do if you have Problems For any increased pain, shortness of breath, bleeding, nausea or vomiting, chestpain, or any unexpected problems, contact your Primary Care Provider. Call [facility] ([phone]) or report to the closest Emergency Room. Call 911 if necessary. 04/21/25 1106 <Electronically signed by Sung Maloney MD> Cosigner Signature (if applicable): CC: Irma Roque, ; No Primary Care Physician ~ Signed [facility] Work Phone: Evaluation noteNo assessment information available [facility] Work Phone: Evaluation note* Diagnosis Chest pain, unspecified type- Primary Bloody stool Blood in stool [facility] Diagnosis COVID-19- Primary Hypertension, unspecified type documented in this encounter [facility] note* Diagnosis Gouty arthritis of right great toe- Primary [facility] Additional Instructions Your blood pressure reading is elevated today. It is very important that you follow-up to have this rechecked. Even if you feel fine, you need to have your blood pressure checked and maybe managed.[facility] Work Phone: Hospital Discharge instructions Additional Instructions Thank you for trusting us with your care today! Please take Tylenol (2 pills, 650 mg), ibuprofen (2 pills, 400 mg) every 6 hours as needed for pain and fever control. Please return to the emergency department if your symptoms change or worsen. Please follow with your primary care physician for further outpatient evaluation and management.[facility] Work Phone: Hospital Discharge instructions Additional Instructions 1. 2 puffs of inhaler every 2-4 hours while awake for the next 3 to 5 days and every 4-6 hours for shortness of breath or wheezing 2. Because you smoke you may have a cough up to 1 month. 3. Your blood pressure readings are elevated. [facility] [address] [facility] [address] [facility] Work [facility]: Hospital Discharge instructions Additional Instructions Practice good hygiene, keep your skin clean and dry, use an antibacterial soap to wash when you shower. Follow-up with the clinic I referred you to if no improvement. Return for any worsening symptoms.[facility] Work Phone: Hospital Discharge instructionsAdditional Instructions If the steroids make your ankle worse or you develop a fever, stop them and return to the ER immediately.[facility] Work Phone: Hospital Discharge instructionsAdditional Instructions Rest, ice, elevate your foot to help decrease swelling. Take Tylenol as needed and use the [place] for breakthrough pain. Follow-up with the detasseler if it is not improving. [facility] Work Phone: Summary Purpose Family History [...] No April 19, 2022 1:01pm Power of [employer] No April 19 1:01pm Advance Directive Response Recorded Date/ Time Advance Directives No November 04, 2016 12:07am Living Will No February 19, 2023 5:49pm Power of [employer] No February 19 5:49pm Advance Directive Response Recorded Date/ Time Advance Directives No November 04, 2016 12:07am Living Will No March 08, 2023 1 2:39pm Power of [employer] No March 08, 2023 12:39pm Advance Directive Response Recorded Date/ Time Advance Directives No November 04, 2016 12:07am Living Will No May 25, 2023 11:19am Power of [employer] No May 25 11:19am Advance Directive Response Recorded Date/ Time Advance Directives No November 03, 2016 11:07pm Living Will No October 12, 2 023 7:28pm Power of [employer] No October 12, 2023 7:28pm Advance Directive Response Recorded Date/ Time Living Will No December 06, 2 025 3:56am Do you have a Healthcare Power of [employer]? No December 06, 2024 3:56am Living Will No December 22, 2 025 3:13pm Do you have a Healthcare Power of [employer] Developer? No December 22, 2024 3:13pm Do you have a Healthcare Power of [employer]? No March 30, 2025 1:08pm Advance Directives No November 04, 2016 12:07am Advance Directive Response Recorded Date/ Time Living Will No December 22, 2 025 3:13pm Do you have a Healthcare Power of [employer] Developer? No December 22, 2024 3:13pm Do you have a Healthcare Power of [employer] Developer? No April 16, 2025 6:09pm Do you have a Healthcare Power of [employer] Developer? No March 30, 2025 1:08pm Advance Directives No November 04, 2016 12:07am Advance Directive Response Recorded Date/ Time Living Will No December 22, 2 025 3:13pm Do you have a Healthcare Power of [employer] Developer? No December 22, 2024 3:13pm Do you have a Healthcare Power of [employer] Developer? No April 16, 2025 6:09pm Do you have a Healthcare Power of [employer] Developer? No April 21, 2025 7:54am Do you have a Healthcare Power of [employer] Developer? No March 30, 2025 1:08pm Advance Directives No November 04, 2016 12:07am Advance Directive Response Recorded Date/ Time Do you have a Healthcare Power of [employer] Developer? No April 16, 2025 6:09pm Do you have a Healthcare Power of [employer] Developer? No April 21, 2025 7:54am Do you have a Healthcare Power of [employer] Developer? No April 28, 2025 2:35pm Do you have a Healthcare Power of [employer] Developer? No March 30, 2025 1:08pm Advance Directives [...] FOOT PAIN December 22, 2024 1:21pm SOB Katlyn 5th, 2025 12:59 pm RASH April 16, 2025 5:28 pm rt ankle April 21, 2025 7:47 am Chief Complaint Admit Date SOB March 30, 2025 12:59 pm RASH April 16, 2025 5:28 pm rt ankle April 21, 2025 7:47 am RLE PAIN April 21, 2025 8:38 am lower extrem April 28, 2025 1:17p m Additional Source Comments (unrecognized sect ion and content) No Status Records FoundNo Status Records FoundNo Status Records FoundNo Status Records FoundNo Status Records Found INFORMATION SOURCE (unrecogn ized section and content) DATE CREATED AUTHOR 04/16/2018 [facility] ([place]) DATE CREATED AUTHOR AUTHOR'S ORGANIZ ATION 08/01/2021 [facility] DATE CREATED AUTHOR AUTHOR'S ORGANIZ ATION 03/12/2024 [facility] DATE CREATED AUTHOR AUTHOR'S ORGANIZ ATION 11/05/2024 [facility] DATE CREATED AUTHOR AUTHOR'S ORGANIZ ATION 08/05/2025 [facility] Goals (unrecognized section and content) Goals may [...] Primary Care Provider Active Dr. Ryley Ann , Emergency Provider Active Team Status: Inactive Member Role Status Dates No Primary Care Physician Primary Care Provider Active Dr. Ryley Ann , DO Attending Provider, Emergency Provider Active Team Status: Inactive Member Role Status Dates No Primary Care Physician Primary Care Provider Active Dr. Chad Winkler , DO Emergency Provider Active Team Status: Inactive [...] December 06, 2024 Dr. Chandana Huang DO Attending Provider Active Start: December [...] April 21, 2025 End: April 21, 2025 Team Status: Inactive Member Role/Relationship Status [...] April 21, 2025 Dr. Sung Maloney MD Attending Provider Active Start: April 21, 2025 End: April 21, 2025 Dr. Sung Maloney MD Emergency Provider Active Start: April 21, 2025 End: April 21, 2025 Team Status: Active Member Role/Relationship Status Dates Dr. Keith Nava MD Attending Provider Active Start: April 21, 2025 Dr. Sung Maloney MD Referring Provider Active Start: April 21, 2025 Team Status: Inactive Member Role/Relationship Status Dates No Primary Care Physician Primary Care Provider Active Start: April 28, 2025 End: April 28, 2025 Dr. Tha Brooks DO Emergency Provider Active Start: April 28, 2025 End: April 28, 2025 Source Comments (unrecognize d section and content) In the event this informatio n is protected by the Federal Confidentiality of Alcohol and Drug Abuse Patient Records regulations: The Federal rules restrict any use of the information to criminally investigate or prosecute any alcohol or drug abuse patient.[facility] the event this information is protected by the Federal Confidentiality of Alcohol and Drug Abuse Patient Records regulations: The Federal rules restrict any use of the information to criminally investigate or prosecute any alcohol or drug abuse patient.[facility] the event this information is protected by the Federal Confidentiality of Alcohol and Drug Abuse Patient Records regulations: The Federal rules restrict any use of the information to criminally investigate or prosecute any alcohol or drug abuse patient.[facility] Reason for Visit (unrecogniz ed section and content) Reason Comments Cough Cough, fever, SOB an d no smell or taste x 3 days Reason Comments Pain (foot) R foot redness, swel ling, painful x 2 days Specialty Diagnoses / Procedures Referred By Suze juan Referred To Contact [facility] Diagnoses possible gout: swelling, pain x 2 days Procedures EST SAME DAY [facility] [address] [place] [address] Referral ID Status Reason Start Date Expiration Date Visits Requested Visits Authorized [id number] Pending Review Financial Clearance Required - Self [...] BE BASED ON THE PRIMARY CLINICAL RECORDS. [employer] provides no warranty or guarantee of the accuracy or completeness of information in this document.
== END 2025-09-15 23:05 | disposition home or self-care (01) ==
PROVIDERS: Emergency Provider Emergency Medicine; Visit Provider Emergency Medicine
DX: M10.9 Gout, unspecified (principal); N18.9 Chronic kidney disease, unspecified; J45.909 Unspecified asthma, uncomplicated; E66.9 Obesity, unspecified; F17.210 Nicotine dependence, cigarettes, uncomplicated; Z79.899 Other long term (current) drug therapy
CPT/HCPCS: 73630; 99283

== ENCOUNTER 2025-10-08 02:38 | Emergency (ER) | payer SELFPAY ==
[2025-10-08 02:40] VITALS: BP 237/124; PULSE 121; RESP 20; TEMP 36.6; O2SAT 96; BMI 45.6
--- NOTE | 2025-10-08 03:07 | CT_ITS ---
PROCEDURE: SOFT TISSUE NECK WITH CONTRAST 10/08/2025 REASON FOR EXAM: ? LEFT PERITONSILLAR ABSCESS TECHNIQUE: Procedure Code: CTNEW Modality: CT Procedure: SOFT TISSUE NECK WITH CONTRAST CONTRAST: 100 cc of Isovue 370 One or more dose reduction techniques were used (e.g., Automated exposure control, adjustment of the mA and/or kV according to patient size, use of iterative reconstruction technique). COMPARISON: None available. FINDINGS: Airway: Midline and patent. Salivary glands: Unremarkable. Tonsils: Mild enlargement of both tonsils suggestive of tonsillitis. No enhancing fluid collections to suggest abscess formation. Lymph nodes: No cervical lymphadenopathy. Thyroid: Unremarkable. Vasculature: Carotid arteries and internal jugular veins are unremarkable. Orbits: Unremarkable at visualized levels. Paranasal sinuses and mastoids: Grossly clear at visualized levels. Lung apices: Clear. Upper mediastinum: Visualized mediastinum is unremarkable. Bones: Unremarkable. CT/Soft Tissue Neck WITH Contrast IMPRESSION: Probable tonsillitis. No abscess formation. Reading [facility]
--- NOTE | 2025-10-08 03:07 | EKG12_ITS ---
Test Reason : DYSRHYTHMIA Blood Pressure : */* mmHG Vent. Rate : 104 BPM Atrial Rate : 104 BPM P-R Int : 146 ms QRS Dur : 76 ms QT Int : 302 ms P-R-T Axes : 58 -13 42 degrees QTcB Int : 397 ms Sinus tachycardia Nonspecific T wave abnormality Abnormal ECG Confirmed by VELASQUEZ MAXWELL, ERNESTINA ([id number]), commissioning editor ARIANNE OSBORNE ([id number]) on 10/10/2025 1:10:38 PM Referred By: Confirmed By: ERNESTINA ENG MD
[2025-10-08 03:13] VITALS: BP 197/130; PULSE 108; RESP 20; O2SAT 97
--- OUTSIDE RECORDS SUMMARY | 2025-10-08 03:17 | XMS RPT_ITS | CCD ---
Author Organization [facility] Care Team Providers Care Healthcare Specialist Name Role Phone PHYSICIAN, NONE Unavailable Unavailable [...] PHYSICIAN, 837 Primary Care Unavail able TAUNT FAMILY ASSISTANT, KAILYN Attending Unavailable MÓNICA SERRANO MD Admitting [...] Provider Dr. Tha Brooks DO Emergency Provider [phone] Sung Maloney Attending Unavailable Care Physician, No [...] Penicillins; Translations: [PENICILLINS] Drug allergy (disorder) 08-19-2015 [facility] Repository (9 sources) Amoxicillin Drug Allergy 04-19-2022 [facility] (8 sources) Penicillins Allergy to substance 02-19-2023 [facility] (3 sources) Penicillins Drug Allergy 08-19-2015 [facility] (1 source) Amoxicillin Drug Allergy 04-28-2025 [facility] Repository (1 source) Penicillins Drug allergy (disorder) 04-28-2025 [facility] Repository Medications Current Medications Medication Drug [...] EVERY 6 HOURS 10 April 19, 2022 [id number] 200 actuat albuterol 0.09 mg/actuat metered dose [...] unspecified] 12-19-2021 Episodic Other aftercare (1 source) 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 Reading Location: [facility] CC: PRADEEP Monroe; No Primary Care Physician Bee Rancher: Signed Normal [facility] Emergency Department Summary on 04-28-2025 Emergency Department Summary [facility] Medical Records Department [address] [place] [address] Emergency Department Summary 04/28/25 MR#: [id number] Acct: [id number] Name: CHANDANA RAYMUNDO Rep #: [id number] : 1995 29 From: Kyara FERNÁNDEZ PCP: [...] it. No weakness or numbness or tingling. [facility] Medical History (Updated 04/28/25 @ 15:44 by [...] due to CKD. I prescribed a few [place] for breakthrough pain. I provided podiatry follow-up and he was discharged in stable condition. Radiography Diagnostic Testing: Clinical Impression(s) from Imaging Studies Foot X-Ray 04/28/25 14:41 IMPRESSION: 1. Soft tissue swelling without acute fracture. 2. If symptoms persist, further evaluation with CT is recommended. Reading Location: [facility] Ankle X-Ray 04/28/25 15:00 IMPRESSION: 1. Soft tissue swelling without acute fracture. 2. If symptoms persist, further evaluation with CT is recommended. Reading Location: [facility] ED attending interpretation of left ankle shows no fracture or dislocation. ED attending interpretation of left foot shows no fracture or dislocation. MDM Radiography Diagnostic Testing: Clinical Impr (more content not included)... Normal [facility] Foot min 3 Viewson 5 Foot min 3 Views [facility] Imaging Services [address] [place] [address] [id number] Foot min 3 Views MR#: [id number] Acct: [id number] Name: CHANDANA RAYMUNDO Rep #: [id number] : 1995 M 29 From: Basilio Conway MD PCP: Care Physician,No Primary Status: REG ER Study: Foot min 3 Views Date of Exam: 04/28/25 Exam# [id number] Ordering Dr: Kyara Segal EXAM: XR Left [...] evaluation with CT is recommended. Reading Location: [facility] CC: PRADEEP Monroe; No Primary Care Physician Bee Rancher: Signed Normal [facility] Absolute lymphocyte countOrd ered By: Sung Maloney on 04-21-2025 Lymphocytes Auto (Unsp spec) [#/Vol] 1.30 10*3/uL 0.83-4.51 [facility] Absolute neutrophil countOrd ered By: Sung Maloney on 04-21-2025 Neutrophils (Bld) [#/Vol] 16.2 10*3/uL High 2.0-7.7 [facility] Anion gap in Serum or Plasma Ordered By: Sung Maloney on 04-21-2025 Anion gap [Moles/Vol] 12 mmol/L 5- [facility] Ankle min 3 Viewson 04-21-20 25 Ankle min 3 Views [facility] Imaging Services [address] [place] [address] Ankle min 3 Views MR#: [id number] Acct: [id number] Name: CHANDANA RAYMUNDO Rep #: [id number] : 1995 M 29 From: Fawad dixon MD PCP: Care Physician,No Primary Status: REG ER Study: Ankle min 3 Views Date of Exam: 04/21/25 Exam# [id number] Ordering Dr: Sung Maloney MD PROCEDURE: ANKLE MIN 3 VIEWS 04/21/2025 REASON FOR EXAM: PAIN TECHNIQUE: ANKLE MIN 3 VIEWS COMPARISON: None FINDINGS: Bones: No fracture seen. Joints: Normal alignment. Mortise appears intact. No effusion. Soft tissues: Soft tissues are unremarkable. Other: RAD/Ankle min 3 Views IMPRESSION: NEGATIVE ANKLE SERIES Reading Location: [id number] CC: Dr. Sung Maloney MD; No Primary Care Physician Bee Rancher: Signed Normal [facility] Automated lymphocyte count a s percentage of total leukocytesOrdered By: Sung Maloney on 04-21-2025 Lymphocytes/100 WBC Auto (Unsp spec) 7.0 % Low 19-41 [facility] BUN/creatinine ratioOrdered By: Sung Maloney on 04-21-2025 Urea nitrogen/Creatinine [Mass ratio] 8.4 mg/mg Low 10-20 [facility] Basic Metabolic Profile (BMP )on 04-21-2025 BUN/CRE 8.4 RATIO Low 10- [facility] Comment on above: Performed By: #### L 501.1400, L501.6710, L100.0100, L500.2500, L101.9900 #### [facility] [address] [place], [address] Calcium [Mass/Vol] 9.1 mg/dL Normal 7.6-11.0 [facility] Comment on above: Performed By: #### L 501.1400, L501.6710, L100.0100, L500.2500, L101.9900 #### [facility] [address] [place], [address] Chloride [Moles/Vol] 105 mmol/L Normal 98-108 [facility] Comment on above: Performed By: #### L 501.1400, L501.6710, L100.0100, L500.2500, L101.9900 #### [facility] [address] [place], [address] CO2 [Moles/Vol] 21.1 mmol/L Normal 21.0-32.0 [facility] Comment on above: Performed By: #### L 501.1400, L501.6710, L100.0100, L500.2500, L101.9900 #### [facility] [address] [place], [address] Creatinine [Mass/Vol] 2.10 mg/dL High 0.70-1.20 [facility] Comment on above: Performed By: #### L 501.1400, L501.6710, L100.0100, L500.2500, L101.9900 #### [facility] [address] [place], [address] ECRCL 72.09 ml/min Normal 50-250 [facility] Comment on above: Performed By: #### L 501.1400, L501.6710, L100.0100, L500.2500, L101.9900 #### [facility] [address] [place], [address] GAP 12 Normal 5-15 [facility] Comment on above: Performed By: #### L 501.1400, L501.6710, L100.0100, L500.2500, L101.9900 #### [facility] [address] [place], [address] GFR/1.73 sq M.predicted among non-blacks MDRD (S/P/Bld) [Vol rate/Area] 43 mL/min/{1.73_m2} Low >60 [facility] Comment on above: Result Comment: mL/m in/1.73m2 CKD-EPI Creatinine Equation (2020) Performed By: #### L 501.1400, L501.6710, L100.0100, L500.2500, L101.9900 #### [facility] [address] [place], [address] Glucose [Mass/Vol] 104 mg/dL High 70-99 [facility] Comment on above: Performed By: #### L 501.1400, L501.6710, L100.0100, L500.2500, L101.9900 #### [facility] [address] [place], [address] Potassium [Moles/Vol] 4.1 mmol/L Normal 3.3-5.1 [facility] Comment on above: Result Comment: Hemo lysis present, Results??could be affected. ?? Performed By: #### L 501.1400, L501.6710, L100.0100, L500.2500, L101.9900 #### [facility] [address] [place], [address] Sodium [Moles/Vol] 137 mmol/L Normal 133-145 [facility] Comment on above: Performed By: #### L 501.1400, L501.6710, L100.0100, L500.2500, L101.9900 #### [facility] [address] [place], [address] Urea nitrogen [Mass/Vol] 18 mg/dL Normal 4-19 [facility] Comment on above: Performed By: #### L 501.1400, L501.6710, L100.0100, L500.2500, L101.9900 #### [facility] [address] [place], [address] Basophil percentageOrdered B y: Sung Maloney on 04-21-2025 Basophils/100 WBC (Bld) 0.2 % 0-1 [facility] CBC W/Diff, Automatedon 03-27 Absolute Lymph 1.30 X10 3/uL Normal 0.83-4.51 [facility] Comment on above: Performed By: #### L 501.1400, L501.6710, L100.0100, L500.2500, L101.9900 #### [facility] [address] [place], [address] Absolute Neut 16.2 X10 3/uL High 2.0-7.7 [facility] Comment on above: Performed By: #### L 501.1400, L501.6710, L100.0100, L500.2500, L101.9900 #### [facility] [address] [place], [address] Basophils/100 WBC (Bld) 0.2 % Normal 0-1 [facility] Comment on above: Performed By: #### L 501.1400, L501.6710, L100.0100, L500.2500, L101.9900 #### [facility] [address] [place], [address] Eosinophils/100 WBC (Bld) 0.2 % Normal 0-5 [facility] Comment on above: Performed By: #### L 501.1400, L501.6710, L100.0100, L500.2500, L101.9900 #### [facility] [address] [place], [address] Erythrocyte distribution width (RBC) [Ratio] 12.0 % Normal 11.6-14.6 [facility] Comment on above: Performed By: #### L 501.1400, L501.6710, L100.0100, L500.2500, L101.9900 #### [facility] [address] [place], [address] Hematocrit (Bld) [Volume fraction] 46.1 % Normal 40-54 [facility] Comment on above: Performed By: #### L 501.1400, L501.6710, L100.0100, L500.2500, L101.9900 #### [facility] [address] [place], [address] Hemoglobin (Bld) [Mass/Vol] 16.3 g/dL Normal 13.0-16.5 [facility] Comment on above: Performed By: #### L 501.1400, L501.6710, L100.0100, L500.2500, L101.9900 #### [facility] [address] [place], [address] IG% 0.300 Normal 0.0-0.9 [facility] Comment on above: Result Comment: IG% - Immature Granulocytes (promyelocytes, myelocytes and metamyelocytes) > 1% indicates that a LEFT SHIFT is Present. Performed By: #### L 501.1400, L501.6710, L100.0100, L500.2500, L101.9900 #### [facility] [address] [place], [address] Lymphocytes/100 WBC (Bld) 7.0 % Low 19-41 [facility] Comment on above: Performed By: #### L 501.1400, L501.6710, L100.0100, L500.2500, L101.9900 #### [facility] [address] [place], [address] MCH (RBC) [Entitic mass] 32.7 pg High 27.0-32.0 [facility] Comment on above: Performed By: #### L 501.1400, L501.6710, L100.0100, L500.2500, L101.9900 #### [facility] [address] [place], [address] MCHC (RBC) [Mass/Vol] 35.4 g/dL Normal 32-36 [facility] Comment on above: Performed By: #### L 501.1400, L501.6710, L100.0100, L500.2500, L101.9900 #### [facility] [address] [place], [address] MCV (RBC) [Entitic vol] 92.6 fL Normal 80-94 [facility] Comment on above: Performed By: #### L 501.1400, L501.6710, L100.0100, L500.2500, L101.9900 #### [facility] [address] [place], [address] Monocytes/100 WBC (Bld) 5.0 % Normal 0-10 [facility] Comment on above: Performed By: #### L 501.1400, L501.6710, L100.0100, L500.2500, L101.9900 #### [facility] [address] [place], [address] Neutrophils/100 WBC (Bld) 87.3 % High 47-70 [facility] Comment on above: Performed By: #### L 501.1400, L501.6710, L100.0100, L500.2500, L101.9900 #### [facility] [address] [place], [address] Nucleated RBC (Bld) [#/Vol] 0 10*3/uL Normal 0-5 [facility] Comment on above: Performed By: #### L 501.1400, L501.6710, L100.0100, L500.2500, L101.9900 #### [facility] [address] [place], [address] Platelet mean volume (Bld) [Entitic vol] 10.0 fL Normal 6.2-12.0 [facility] Comment on above: Performed By: #### L 501.1400, L501.6710, L100.0100, L500.2500, L101.9900 #### [facility] [address] [place], [address] Platelets (Bld) [#/Vol] 237 10*3/uL Normal 150-450 [facility] Comment on above: Performed By: #### L 501.1400, L501.6710, L100.0100, L500.2500, L101.9900 #### [facility] [address] [place], [address] RBC (Bld) [#/Vol] 4.98 10*6/uL Normal 4.6-6.2 [facility] Comment on above: Performed By: #### L 501.1400, L501.6710, L100.0100, L500.2500, L101.9900 #### [facility] [address] [place], [address] RDW SD 41.1 fl Normal 35.1-43.9 [facility] Comment on above: Performed By: #### L 501.1400, L501.6710, L100.0100, L500.2500, L101.9900 #### [facility] [address] [place], [address] WBC (Bld) [#/Vol] 18.5 10*3/uL High 4.4-11.0 [facility] Comment on above: Performed By: #### L 501.1400, L501.6710, L100.0100, L500.2500, L101.9900 #### [facility] [address] [place], [address] CRPon 04-21-2025 C-REACTIVE PROT 4.76 mg/L High 0.0-3.0 [facility] Comment on above: Performed By: #### M 100.678 #### [facility] [address] [place], [address] Carbon dioxide, total [Moles /volume] in Central venous bloodOrdered By: Sung Maloney on 04-21-2025 CO2 [Moles/Vol] 21.1 mmol/L 21.0-32.0 [facility] Chloride assayOrdered By: Angy Maloney on 04-21-2025 Chloride [Moles/Vol] 105 mmol/L 98-108 [facility] Emergency Department Summary on 04-21-2025 Emergency Department Summary [facility] Medical Records Department [address] [place] [address] Emergency Department Summary 04/21/25 MR#: [id number] Acct: [id number] Name: CHANDANA RAYMUNDO Rep #: [id number] : 1995 29 From: Sung Maloney MD [...] symptoms. No history of DVT or PE. [facility] Medical History (Updated 04/21/25 @ 11:03 by [...] it i (more content not included)... Normal [facility] Eosinophil percentageOrdered By: Sung Maloney on 04-21-2025 Eosinophils/100 WBC (Bld) 0.2 % 0-5 [facility] Erythrocyte Sed Rateon 04-21 SED RATE 5 mm/hr Normal 0-20 [facility] Comment on above: Performed By: #### L 501.1400, L501.6710, L100.0100, L500.2500, L101.9900 #### [facility] [address] [place], [place], [address] Erythrocyte distribution wid th ratioOrdered By: Sung Maloney on 04-21-2025 Erythrocyte distribution width (RBC) [Ratio] 12.0 % 11.6-14.6 [facility] Erythrocyte distribution wid th standard deviationOrdered By: Sung Maloney on 04-21-2025 Erythrocyte distribution width (RBC) [Ratio] 41.1 fl 35.1-43.9 [facility] Erythrocyte sedimentation ra teOrdered By: Sung Maloney on 04-21-2025 ESR (Bld) [Velocity] 5 mm/h 0-20 [facility] Glomerular filtration rate ( GFR) estimation/1.73 sq m using serum, plasma, or whole bOrdered By: Sung Maloney on 04-21-2025 GFR/1.73 sq M.predicted among non-blacks MDRD (S/P/Bld) [Vol rate/Area] 43 mL/min/{1.73_m2} Low >60 [facility] Comment on above: mL/min/1.73m2 CKD-EP I Creatinine Equation (2020) Hematocrit Auto (Bld) [Volum e fraction]Ordered By: Sung Maloney on 04-21-2025 Hematocrit (Bld) [Volume fraction] 46.1 % 40-54 [facility] Hemoglobin measurementOrdere d By: Sung Maloney on 04-21-2025 Hemoglobin (Bld) [Mass/Vol] 16.3 g/dL 13.0-16.5 [facility] Immature granulocytes/100 WB C Auto (Bld)Ordered By: Sung Maloney on 04-21-2025 Immature granulocytes/100 WBC (Bld) 0.300 % 0.0-0.9 [facility] Comment on above: IG% - Immature Granu locytes (promyelocytes, myelocytes and metamyelocytes) > 1% indicates that a LEFT SHIFT is Present. MCV (mean corpuscular volume ) determinationOrdered By: Sung Maloney on 04-21-2025 MCV (RBC) [Entitic vol] 92.6 fL 80-94 [facility] Mean corpuscular hemoglobin (MCH) determinationOrdered By: Sung Maloney 04-21-2025 MCH (RBC) [Entitic mass] 32.7 pg High 27.0-32.0 [facility] Mean corpuscular hemoglobin concentration (MCHC) determinationOrdered By: Sung Maloney 04-21-2025 MCHC (RBC) [Mass/Vol] 35.4 g/dL 32-36 [facility] Mean platelet volume determi nationOrdered By: Sung Maloney on 04-21-2025 Platelet mean volume (Bld) [Entitic vol] 10.0 fL 6.2-12.0 [facility] Monocyte percentageOrdered B y: Sung Maloney on 04-21-2025 Monocytes/100 WBC (Bld) 5.0 % 0-10 [facility] Neutrophil percentageOrdered By: Sung Maloney on 04-21-2025 Neutrophils/100 WBC (Bld) 87.3 % High 47-70 [facility] Nucleated red blood cell per centageOrdered By: Sung Maloney on 04-21-2025 Nucleated RBC/100 WBC (Bld) [Ratio] 0 % 0-5 [facility] Platelet countOrdered By: Angy Maloney on 04-21-2025 Platelets (Bld) [#/Vol] 237 10*3/uL 150-450 [facility] Potassium measurement (mass/ volume)Ordered By: Sung Maloney on 04-21-2025 Potassium (Unsp spec) [Mass/Vol] 4.1 mmol/L 3.3-5.1 [facility] Comment on above: Hemolysis present, R esults could be affected. RBC Auto (Bld) [#/Vol]Ordere d By: Sung Maloney on 04-21-2025 RBC (Bld) [#/Vol] 4.98 10*6/uL 4.6-6.2 [facility] Serum creatinine measurement (mass/volume)Ordered By: Sung Maloney on 04-21-2025 Creatinine [Mass/Vol] 2.10 mg/dL High 0.70-1.20 [facility] Serum glucose measurement (m ass/volume)Ordered By: Sung Maloney on 04-21-2025 Glucose [Mass/Vol] 104 mg/dL High 70-99 [facility] Serum or plasma C reactive p rotein measurement (mass/volume)Ordered By: Sung Maloney on 04-21-2025 CRP [Mass/Vol] 4.76 mg/L High 0.0-3.0 [facility] Serum or plasma calcium khanh urement (mass/volume)Ordered By: Sung Maloney on 04-21-2025 Calcium [Mass/Vol] 9.1 mg/dL 7.6-11.0 [facility] Serum or plasma urea nitroge n measurement (mass/volume)Ordered By: Sung Maloney on 04-21-2025 Urea nitrogen [Mass/Vol] 18 mg/dL 4-19 [facility] Serum or plasma uric acid me asurement (mass/volume)Ordered By: Sung Maloney on 04-21-2025 Urate [Mass/Vol] 10.8 mg/dL High 3.5-7.2 [facility] Comment on above: The drugs N-Acetylcy steine and Metamizole may falsely depress this assay. Sodium levelOrdered By: Asim Maloney on 04-21-2025 Sodium [Moles/Vol] 137 mmol/L 133-145 [facility] Uric Acidon 04-21-2025 URIC 10.8 mg/dL High 3.5-7.2 [facility] Comment on above: Result Comment: The drugs N-Acetylcysteine and Metamizole may falsely depress this assay. Performed By: #### M 100.678 #### [facility] [address] [place], [address] Venous Duplex US, Unilateral on 04-21-2025 Venous Duplex US, Unilateral [facility] Cardiovascular Services [address] [place] [address] Venous Duplex US, Unilateral 04/21/25 0838 MR#: [id number] Acct: [id number] Name: CHANDANA RAYMUNDO Rep #: [id number] : 1995 29 From: Keith Nava MD [...] Physician Date Dictated: 04/21/25837 Date Transcribed: 04/21/251920 Bee Rancher: Signed Normal [facility] White blood cell (WBC) count Ordered By: Sung Maloney on 04-21-2025 WBC (Bld) [#/Vol] 18.5 10*3/uL High 4.4-11.0 [facility] Emergency Department Summary on 04-16-2025 Emergency Department Summary [facility] Medical Records Department [address] [place] [address] Emergency Department Summary 04/16/25 MR#: [id number] Acct: [id number] Name: CHANDANA RAYMUNDO Rep #: [id number] : 1995 29 From: Olesya FERNÁNDEZ PCP: [...] He reports that he is healthy otherwise. [facility] Medical History Kidney disease Liver abscess Asthma [...] allergy. Encouraged good hygiene with antibacterial soap. horticulture worker did come and give him resources on a PCP referral and prescription assistance given he does not have insurance. Return instructions were discussed and patient discharged home in stable condition. [facility] Narrative Medica (more content not included)... Normal [facility] Chest 1 View (Portable)on Chest 1 View (Portable) [facility] Imaging Services [address] [place] [address] Chest 1 View (Portable) MR#: [id number] Acct: [id number] Name: CHANDANA RAYMUNDO Rep #: [id number] : 1995 M 29 From: Tha Dial MD PCP: Care Physician,No Primary Status: REG ER Study: Chest 1 View (Portable) Date of Exam: 03/30/25 Exam# [id number] Ordering Dr: Cruz Duarte DO PROCEDURE: CHEST [...] 1. No active cardiopulmonary disease. Reading Location: [place] [address] CC: Dr. Cruz Duarte DO; No Primary Care Physician Bee Rancher: Signed Normal [facility] Emergency Department Summary on 03-30-2025 Emergency Department Summary [facility] Medical Records Department [address] [place] [address] Emergency Department Summary 03/30/25 MR#: [id number] Acct: [id number] Name: CHANDANA RAYMUNDO Rep #: [id number] : 1995 29 From: Cruz Duarte DO PCP: Care Physician,No Primary Status:[facility] ER Location: ED HPI History [...] no wou (more content not included)... Normal [facility] Emergency Department Summary on 12-22-2024 Emergency Department Summary [facility] Medical Records Department [address] [place] [address] Emergency Department Summary 12/22/24 MR#: [id number] Acct: [id number] Name: CHANDANA RAYMUNDO Rep #: [id number] : 1995 29 From: Ryan Crump MD [...] can be discharged to follow-up with the [facility] clinic as he states he is currently homeless and does not have health insurance. Return instructions to the emergency department were reviewed. Disposition is discharged home in stable condition. History Record Review Discussion w/independent historian: Patient Additional record(s) reviewed:: Prior ED visit Radiography Diagnostic Testing: Clinical Impression(s) from Imaging Studies Foot X-Ray 12/22/24 13:30 IMPRESSION: Unremarkable examination. Reading Location: [id number] Discharge Plan Triage Chief Complaint: Lower Extremity [...] mg tablet, (more content not included)... Normal [facility] Foot min 3 Viewson Foot min 3 Views [facility] Imaging Services [address] [place] [address] Foot min 3 Views MR#: [id number] Acct: [id number] Name: CHANDANA RAYMUNDO Rep #: [id number] : 1995 M 29 From: Fawad dixon MD PCP: Care Physician,No Primary Status: PRE ER Study: Foot min 3 Views Date of Exam: 12/22/24 Exam# [id number] Ordering Dr: Provider,Ed P. PROCEDURE: FOOT MIN 3 VIEWS REASON FOR EXAM: Pain. History of gout. TECHNIQUE: Three views of the left foot were obtained. COMPARISON: Comparison is made with prior study dated May 25, 2023 FINDINGS: LEFT FOOT: No visible fracture. No suspicious bone lesion. Normal alignment. Soft tissues are unremarkable. RAD/Foot min 3 Views IMPRESSION: Unremarkable examination. Reading Location: [id number] CC: ED PHYSICIAN PROVIDER; No Primary Care Physician Bee Rancher: Signed Normal [facility] Emergency Department Summary on 12-06-2024 Emergency Department Summary [facility] Medical Records Department [address] [place] [address] Emergency Department Summary 12/06/24 MR#: [id number] Acct: [id number] Name: CHANDANA RAYMUNDO Rep #: [id number] : 1995 29 From: Chandana Huang DO [...] last night they went to dinner to [employer] and felt that the chicken was undercooked but states that he ate a few bites of this before realizing and does not know if he has food poisoning. [facility] Medical History Kidney disease Liver abscess Asthma [...] follow commands knew that he was at [facility] year is 2024 Skin: Warm, dry, [...] (Reason: nausea (more content not included)... Normal [facility] Influenza virus A and B and SARS-CoV-2 (COVID-19) and Respiratory syncytial virus RNAOrdered By: Chandana Huang on 12-06-2024 SARS-CoV-2 (COVID-19) RNA HUE+probe Ql (Unsp spec) [facility] M100.678on 12-06-2024 M100.678 Pending SARS-CoV-2 (COVID 19) Negative INFLUENZA A Negative INFLUENZA B Negative RSV PCR Negative Normal [facility] Comment on above: Performed By: #### M 100.088 #### [facility] [address] [place], [address] ALCOHOLon 10-29-2024 Ethanol [Mass/Vol] mg/dL Normal [facility] Comment on above: Result Comment: Note : Alcohol values performed at [facility] are performed on serum or plasma and reported in mg/dl, which is different then the state reporting units of g/dl which is performed on whole blood. Result reporting units are based on test methodology and are not interchangable. Performed By: #### 1 25656, [id number], 822630, 534851 #### [facility] [address] [place], [place] [address] Teradata Architect: Junior Little MD AUTO DIFFon 10-29-2024 Baso Count 0.10 x1000 Normal 0.00-0.20 [facility] Comment on above: Performed By: #### 1 52665, 3018709, 022058, 522086 #### [facility] [address] [place] [address] Teradata Architect: Junior Little MD Basos % 1.2 % Normal [facility] Comment on above: Performed By: #### 1 26682, 7229638, 786289, 438287 #### [facility] [address] [place], [place] [address] Teradata Architect: Junior Little MD Eos Count 0.20 x1000 Normal 0.00-0.50 [facility] Comment on above: Performed By: #### 1 61293, 7783902, 352070, 612502 #### [facility] [address] [place], [place] [address] Teradata Architect: Junior Little MD Eosinophils/100 WBC (Bld) 1.5 % Normal [facility] Comment on above: Performed By: #### 1 07400, 7705643, 037806, 407238 #### [facility] [address] [place], [place] [address] Teradata Architect: Junior Little MD Lymph Count 2.20 x1000 Normal 1.20-4.80 [facility] Comment on above: Performed By: #### 1 59200, 0400722, 954256, 361739 #### [facility] [address] [place] [address] Teradata Architect: Junior Little MD Lymphocytes/100 WBC (Bld) 18.8 % Normal [facility] Comment on above: Performed By: #### 1 54885, 8427812, 219864, 700229 #### [facility] [address] [place] [address] Teradata Architect: Junior Little MD Story Count 0.60 x1000 Normal 0.10-1.00 [facility] Comment on above: Performed By: #### 1 15087, 1411391, 398593, 695910 #### [facility] [address] [place] [address] Teradata Architect: Junior Little MD Monocytes/100 WBC (Bld) 4.7 % Normal [facility] Comment on above: Performed By: #### 1 11631, 5076782, 814648, 305253 #### [facility] [address] [place] [address] Teradata Architect: Junior Little MD Neutrophil Count (ANC) 8.80 x1000 Normal 1.40-8.80 So [facility] Comment on above: Performed By: #### 1 44688, 5777783, 038345, 742319 #### [facility] [address] [place] [address] Teradata Architect: Junior Little MD Neutrophils/100 WBC (Bld) 73.8 % Normal [facility] Comment on above: Performed By: #### 1 22773, 7596697, 453250, 888338 #### [facility] [address] [place] [address] Teradata Architect: Junior Little MD COMPMETAon 10-29-2024 GFR Estimated 40 Normal [facility] Comment on above: Result Comment: The GFR is calculated and is Age, Sex, and Race adjusted. Performed By: #### 1 57916, 3595262, 848656, 874367 #### [facility] [address] [place] [address] Teradata Architect: Junior Little MD Albumin [Mass/Vol] 3.0 g/dL Low 3.4-5.0 [facility] Comment on above: Performed By: #### 1 93455, 6472328, 569396, 248916 #### [facility] [address] [place] [address] Teradata Architect: Junior Little MD Albumin/Globulin [Mass ratio] 0.7 {ratio} Normal [facility] Comment on above: Performed By: #### 1 , 5553904, 747798, 547351 #### [facility] [address] [place] [address] Teradata Architect: Junior Little MD Alk Phos 137 unit/L High 45-117 [facility] Comment on above: Performed By: #### 1 , 7346114, 511473, 021499 #### [facility] [address] [place] [address] Teradata Architect: Junior Little MD Bilirubin [Mass/Vol] 0.30 mg/dL Normal 0.30-1.20 [facility] Comment on above: Result Comment: Use of this assay is not recommended for patients undergoing treatment with eltrombopag due to the potential for falsely elevated results. Performed By: #### 1 , 4478550, 233430, 250070 #### [facility] [address] [place] [address] Teradata Architect: Junior Little MD Calcium [Mass/Vol] 8.8 mg/dL Normal 8.5-10.5 [facility] Comment on above: Performed By: #### 1 , 6765712, 164994, 236965 #### [facility] [address] [place] [address] Teradata Architect: Junior Little MD Chloride [Moles/Vol] 106 mmol/L Normal 100-109 [facility] Comment on above: Performed By: #### 1 82662, 8395573, 969500, 219356 #### [facility] [address] [place] [address] Teradata Architect: Junior Little MD CO2 [Moles/Vol] 26.5 mmol/L Normal 21.0-32.0 [facility] Comment on above: Performed By: #### 1 00756, 6313583, 350753, 866594 #### [facility] [address] [place] [address] Teradata Architect: Junior Little MD Creatinine [Mass/Vol] 2.0 mg/dL High 0.7-1.3 [facility] Comment on above: Performed By: #### 1 56801, 3557590, 851869, 044092 #### [facility] [address] [place] [address] Teradata Architect: Junior Little MD Globulin (S) [Mass/Vol] 4.1 g/dL Normal [facility] Comment on above: Performed By: #### 1 74643, 1835345, 293534, 147078 #### [facility] [address] [place] [address] Teradata Architect: Junior Little MD Glucose [Mass/Vol] 168 mg/dL High 72-100 [facility] Comment on above: Result Comment: Rdaha puncture should occur prior to sulfasalazine administration due to the potential for falsely depressed results. Venipuncture should occur prior to sulfapyridine administration due to the potential falsely elevated results. Baseline assay values before administration of sulfasalazine and sulfapyridine therapy would not be affected. Performed By: #### 1 64944, 4975420, 153229, 456701 #### [facility] [address] [place] [address] Teradata Architect: Junior Little MD GOT 15 unit/L Normal 15-37 [facility] Comment on above: Result Comment: Radha puncture should occur prior to sulfasalazine administration due to the potential for falsely depressed results. Baseline assay values before administration of sulfasalazine and sulfapyridine therapy would not be affected. Performed By: #### 1 37217, 3614369, 010467, 560830 #### [facility] [address] [place] [address] Teradata Architect: Junior Little MD GPT 25 unit/L Normal 16-63 [facility] Comment on above: Result Comment: Radha puncture should occur prior to sulfasalazine administration due to the potential for falsely depressed results. Baseline assay values before administration of sulfasalazine and sulfapyridine therapy would not be affected. Performed By: #### 1 36762, 1252492, 492695, 541729 #### [facility] [address] [place] [address] Teradata Architect: Junior Little MD Osmolality [Osmolality] 293 mosm/kg Normal 275-295 [facility] Comment on above: Performed By: #### 1 51406, 4757627, 102521, 665891 #### [facility] [address] [place] [address] Teradata Architect: Junior Little MD Potassium [Moles/Vol] 4.0 mmol/L Normal 3.5-5.1 [facility] Comment on above: Performed By: #### 1 43937, 0106320, 825246, 640758 #### [facility] [address] [place] [address] Teradata Architect: Junior Little MD Protein [Mass/Vol] 7.1 g/dL Normal 6.0-8.5 [facility] Comment on above: Performed By: #### 1 15161, 8614891, 914062, 158655 #### [facility] [address] [place] [address] Teradata Architect: Junior Little MD Sodium [Moles/Vol] 144 mmol/L Normal 135-145 [facility] Comment on above: Performed By: #### 1 37259, 9997537, 572194, 014762 #### [facility] [address] [place] [address] Teradata Architect: Junior Little MD Urea nitrogen [Mass/Vol] 19 mg/dL Normal 10-20 [facility] Comment on above: Performed By: #### 1 37813, 7342883, 026891, 385524 #### [facility] [address] [place] [address] Teradata Architect: Junior Little MD Urea nitrogen/Creatinine [Mass ratio] 9.5 mg/mg Normal [facility] Comment on above: Performed By: #### 1 11272, 3301837, 408382, 342610 #### [facility] [address] [place] [address] Teradata Architect: Junior Little MD COVID-19 Molecular BREDon SARS-CoV-2 (COVID-19) RNA HUE+probe Ql (Unsp spec) Negative Normal Negative [facility] Comment on above: Result Comment: [...] diagnosis. This testing was performed in the [facility] laboratory located at [place] [address]] Performed By: #### C [id number] #### [facility] [address] [place] [address] Teradata Architect: Junior Little MD ED Data LABOR CONCILIATOR - Texton 025 ED Data LABOR CONCILIATOR - Text ED Data LABOR CONCILIATOR Entered On: 10/29/2024 17:13 EST Performed On: 10/29/2024 17:10 EST by Jeet Weinberg RN ED General Intake Information [place] Coma : Document [place] Coma Scale Problem History : Document Problem [...] Jeet Weinberg RN - 10/29/2024 17:10 EST [place] Coma Scale Eye Opening : Spontaneously Best Verbal Response : Oriented Best Motor Response : Obeys simple commands Lakisha Coma Score (Ref) : 15 Jeet Weinberg RN - 10/29/2024 17:10 EST Problem History (As Of: 10/29/2024 17:13:44 EST) Problems(Active) Knowledge deficit (SNOMED CT :0798685501 ) Name of Problem: Knowledge deficit ; Recorder: SYSTEM; Confirmation: Confirmed ; Classification: Nursing ; Code: 7304568136 ; Last Updated: 12/06/2013 18:01 EST ; [...] PNED ; Probability: 0 ; Diagnosis Code: [id number] Procedure History ED Urinary Catheter Present on [...] History (As Of: 10/29/2024 17:13:44 EST) Normal [facility] ED Discharge Educationon ED Discharge Education Normal So [facility] ED Emergency Severity Index Adult-Texton 10-29-2024 [...] Huerta RN - 10/29/2024 17:10 EST Normal [facility] ED Patient Summaryon 025 ED Patient Summary [facility] Emergency Department Discharge Instructions [address] [place] [address] (Patient Copy) Name: CHANDANA RAYMUNDO : 1995 Allergies: penicillins Diagnosis: Depression; Verbalizes suicidal thoughts Visit Date: 10/29/2024 17:03:12 Current Date Time: 10/29/2024 22:04:28 Address: [address] [place] [address] Phone: [phone] Primary Care Provider: Name: NO FAMILY PHYSICIAN, 837 Phone: Emergency Department Care Providers: Primary Physician: MÓNICA SERRANO MD Thank you for choosing [facility] for your emergency care. You are very important to us. Our goal is to demonstrate our high quality medical care, and provide you with a very good patient experience. You may receive a survey about our service. Please take the time to complete the survey and return it so we can continue to enhance our service. Thank you again for allowing the [facility] Emergency Department to care for your medical needs. If you have questions about your care or follow up information please contact us at [phone]. Follow-Up Instructions CHANDANA RAYMUNDO has been given these follow-up instructions: Patient Education Materials CHANDANA RAYMUNDO has been given the following patient education materials: BEFORE YOU LEAVE Set up your [facility] [employer] account! [employer] is a secure, online health management tool that connects you to portions of your hospital-based electronic medical record, allowing you to see test results, manage appointments, access discharge care instructions and much more. You can access [employer] from a computer, tablet or smartphone. Enrollment/registra tion is required. If you do not have a [email or web address] account, please provide us with an email address before you leave so that we may set up an account for you. New to [employer]! You may now securely connect some of the health management apps you use (e.g., fitness trackers, dietary trackers, etc.) to your health record in [facility] [employer]. This new feature provides expanded access to your health and wellness data, which will help you and your care team make informed decisions about your health care. If you are interested in using a health management minh not currently connected to [employer], contact a Building Architect at [email or web address]. We will determine if the minh meets the technical requirements to connect to [facility] [employer] and assure the security of your private [...] health or substance abuse issue, please call [facility] at [phone] or the National Suicide Prevention Lifeline at . IBREANNE TYLER, have received the follow-up provider(s) list, medication information and patient education materials/instructi ons and have verbalized understanding. Patient Signature Date Time Provider Signature Date Time Normal [facility] ED Physician Reporton 2024 ED [...] Reexamination/Reeva luation Patient will be admitted to [facility] for suicidal thoughts and feelings of depression. [...] Placement, 10/29/2024 19:55:00 EST, GREGORY MAXWELL, MÓNICA, [facility], Admit as Inpatient CBCWD(CBC WITH DIFF), STAT, 10/29/2024 17:16:00 EST COMPMETA(CMP), STAT, 10/29/2024 17:16:00 EST COVID-19 Molecular BRED, STAT, 10/29/2024 17:16:00 EST, Specimen type: CABIN SERVICE AGENT Swab EKG, 10/29/2024 17:16:00 EST, Other Reason, Cart, Heart Meds Unknown at this time, PRERNA, No EKG/[place] Requested Level of Care Order, 10/29/2024, Mental [...] 17:17 0 Lymph % 10/29/24 17:17 18.8 Story % 10/29/24 17:17 4.7 Neutrophil % 10/29/24 17:17 73.8 Eosin % 10/29/24 17:17 1.5 Basos % 10/29/24 17:17 1.2 Lymph Count 10/29/24 17:17 2.20 Story Count 10/29/24 17:17 0.60 Neutrophil Count (ANC) 10/29/24 17:17 8.80 Eos Count 10/29/24 17:17 0.20 Baso Count 10/29/24 17:17 0.10 Immunology LATEST RESULTS COVID-19 Molecular BRED 10/29/24 17:17 Negative Urine Analysis LATEST RESULTS Color, U 10/29/24 17:17 Yellow Appearance, U 10/29/24 (more content not included)... Normal [facility] ED Progress Noteon ED Progress Note Pt. alert and oriented presents with suicidal ideations due to environmental factors. No attempts. States frequent pot use since the age of 14. Denies physical complaints. Spoke with Yahir at [facility] , due to patient having no insurance and being a resident in [facility]. AP on-call social work manager to call back. Pt. resting quietly and in no distress. Awaiting news from [facility]. 1900 Assumed care of patient. A & O x3. Safety maintained. Patient provided water at this time, declines food or snack. 0 Patient medicated per EMAR, denies questions or concerns. 200 Report given to Charo at [facility]. Patient going to . Received approval from [facility]. 2029 No changes in assessment. 2129 Patient resting in position of comfort with call light within reach. Safety maintained. Respirations even and unlabored, no acute distress. 2135 Report given to physician ambulance. Normal [facility] ED Triage LABOR CONCILIATOR - Texton 10-29 ED Triage LABOR CONCILIATOR - Text ED Triage LABOR CONCILIATOR Entered On: 10/29/2024 17:15 EST Performed On: [...] 17:15:39 EST) Problems(Active) Knowledge deficit (SNOMED CT :6372432256 ) Name of Problem: Knowledge deficit ; Recorder: SYSTEM; Confirmation: Confirmed ; Classification: Nursing ; Code: [id number] ; Last Updated: 12/06/2013 18:01 EST ; [...] PNED ; Probability: 0 ; Diagnosis Code: [id number] Reason for Visit (As Of: 10/29/2024 17:15:40 EST) Problems(Active) Knowledge deficit (SNOMED CT :1675562923 ) Name of Problem: Knowledge deficit ; Recorder: SYSTEM; Confirmation: Confirmed ; Classification: Nursing ; Code: [id number] ; Last Updated: 12/06/2013 18:01 EST ; [...] PNED ; Probability: 0 ; Diagnosis Code: [id number] Sepsis Screening Sepsis Vitals Screening ED : None/ NA(Peds) Jeet Weinberg RN - 10/29/2024 17:14 EST Normal [facility] HEMOon 10-29-2024 DIFF? No Normal [facility] Comment on above: Performed By: #### 1 84412, 8794966, 603741, 199278 #### [facility] [address] [place], [place] [address] Teradata Architect: Junior Little MD Erythrocyte distribution width (RBC) [Ratio] 13.2 % Normal 11.5-14.5 [facility] Comment on above: Performed By: #### 1 98270, 1755915, 290795, 629534 #### [facility] [address] [place] [address] Teradata Architect: Junior Little MD Hematocrit (Bld) [Volume fraction] 50.2 % Normal 41.0-52.0 [facility] Comment on above: Performed By: #### 1 02835, 8069253, 967016, 372237 #### [facility] [address] [place] [address] Teradata Architect: Junior Little MD Hemoglobin (Bld) [Mass/Vol] 17.2 g/dL Normal 13.5-17.5 [facility] Comment on above: Performed By: #### 1 69927, 2536100, 646181, 323671 #### [facility] [address] [place] [address] Teradata Architect: Junior Little MD Instr WBC 11.9 Normal [facility] Comment on above: Performed By: #### 1 07743, 5991372, 111906, 062409 #### [facility] [address] [place] [address]6973 Teradata Architect: Junior Little MD MCH (RBC) [Entitic mass] 32.6 pg Normal 27.0-34.0 [facility] Comment on above: Performed By: #### 1 31544, 8356257, 625946, 134156 #### [facility] [address] [place] [address]60 Teradata Architect: Junior Little MD MCHC (RBC) [Mass/Vol] 34.3 g/dL Normal 32.0-37.0 [facility] Comment on above: Performed By: #### 1 97723, 2167947, 136124, 241304 #### [facility] [address] [place] [address]32 Teradata Architect: Junior Little MD MCV (RBC) [Entitic vol] 95.1 fL Normal 80.0-100.0 [facility] Comment on above: Performed By: #### 1 79930, 9198529, 455323, 098606 #### [facility] [address] [place] [address] Teradata Architect: Junior Little MD Nucleated RBC 0 /100WBC Normal [facility] Comment on above: Performed By: #### 1 64940, 1052086, 479402, 898906 #### [facility] [address] [place] [address] Teradata Architect: Junior Little MD Platelet 272 x10 Normal 150-450 [facility] Comment on above: Performed By: #### 1 38704, 1990631, 769369, 258505 #### [facility] [address] [place] [address] 78344 Teradata Architect: Junior Little MD Platelet mean volume (Bld) [Entitic vol] 8.1 fL Normal 7.4-10.4 [facility] Comment on above: Performed By: #### 1 89515, 1362560, 550164, 779902 #### [facility] [address] [place] [address]217 Teradata Architect: Junior Little MD RBC 5.28 x10 Normal 4.70-6.10 [facility] Comment on above: Result Comment: Note : RBC morphology is normal unless otherwise stated. Evaluation performed only if differential is requested. Performed By: #### 1 41425, 6142221, 059938, 436772 #### [facility] [address] [place] [address] Teradata Architect: Junior Little MD WBC 11.9 x10 High 4.5-11.0 [facility] Comment on above: Performed By: #### 1 94854, 5750251, 903360, 102871 #### [facility] [address] [place] [address]14 Teradata Architect: Junior Little MD U DOAon 10-29-2024 Amphetamines, U Negative Normal [facility] Comment on above: Performed By: #### 1 53279 #### [facility] [address] [place] [address] Teradata Architect: Junior Little MD Barbituates, U Negative Normal [facility] Comment on above: Performed By: #### 1 34691 #### [facility] [address] [place] [address] Teradata Architect: Junior Little MD Benzodiazepines, U Negative Normal [facility] Comment on above: Performed By: #### 1 82915 #### [facility] [address] [place] [address]691 Teradata Architect: Junior Little MD Cocaine, U Negative Normal [facility] Comment on above: Performed By: #### 1 91663 #### [facility] [address] [place] [address]602 Teradata Architect: Junior Little MD Ecstasy, U Negative Normal [facility] Comment on above: Performed By: #### 1 76196 #### [facility] [address] [place] [address] 27850 Teradata Architect: Junior Little MD Opiates, U Negative Normal [facility] Comment on above: Performed By: #### 1 27403 #### [facility] [address] [place] [address]14 Teradata Architect: Junior Little MD PCP, U Negative Normal [facility] Comment on above: Performed By: #### 1 93125 #### [facility] [address] [place] [address] Teradata Architect: Junior Little MD THC, U Positive Normal [facility] Comment on above: Performed By: #### 1 28341 #### [facility] [address] [place] [address] Teradata Architect: Junior Little MD UAon 10-29-2024 Appearance, U Clear Normal [facility] Comment on above: Performed By: #### 1 65621 #### [facility] [address] [place] [address]398 Teradata Architect: Junior Little MD Bacteria, U Occasional Normal [facility] Comment on above: Performed By: #### 1 94767 #### [facility] [address] [place] [address] Teradata Architect: Junior Little MD Bilirubin, U Negative Normal [facility] Comment on above: Result Comment: Bili wilkerson, U: Initial positive urine bilirubin results are not confirmed. Interfering substances may include elevated urobilinogen. Trace = 0.5-1.0 mg/dL Small = 2.0-4.0 mg/dL Moderate = 6.0-8.0 mg/dL Large = 10 mg/dl and greater Performed By: #### 1 [id number] #### [facility] [address] [place] [address] Teradata Architect: Junior Little MD Blood, U Small Abnormal Negative [facility] Comment on above: Result Comment: Bloo d, U: Trace = 0.03-0.05 mg/dL Small = 0.06-0.1 mg/dL Moderate = 0.2-0.5 mg/dL Large = 1.0 mg/dL and greater Performed By: #### 1 [id number] #### [facility] [address] [place] [address] Teradata Architect: Junior Little MD Color, U Yellow Normal [facility] Comment on above: Performed By: #### 1 [id number] #### [facility] [address] [place] [address] Teradata Architect: Junior Little MD Glucose Qual, U Negative Normal Negative [facility] Comment on above: Performed By: #### 1 [id number] #### [facility] [address] [place] [address] Teradata Architect: Junior Little MD Ketones, U Negative Normal Negative [facility] Comment on above: Performed By: #### 1 [id number] #### [facility] [address] [place] [address]19 Teradata Architect: Junior Little MD Leukocyte Esterase, U Negative Normal Negative [facility] Comment on above: Result Comment: Leuk ocyte Esterase, U: Trace = 25 Ara/uL Small = 75 Ara/uL Moderate = 250 Ara/uL Large = 500 Ara/uL and greater Performed By: #### 1 [id number] #### [facility] [address] [place] [address] Teradata Architect: Junior Little MD Mucous, U Occasional Normal [facility] Comment on above: Performed By: #### 1 [id number] #### [facility] [address] [place], [place] [id number] Teradata Architect: Junior Little MD Nitrite, U Negative Normal Negative [facility] Comment on above: Performed By: #### 1 [id number] #### [facility] [address] [place], [place] [phone] Teradata Architect: Junior Little MD pH, U 6.0 Normal 4.5-8.0 [facility] Comment on above: Performed By: #### 1 [id number] #### [facility] [address] [place] [address] Teradata Architect: Junior Little MD Protein, U >=300 mg/dl Abnormal Negative [facility] Comment on above: Performed By: #### 1 [id number] #### [facility] [address] [place] [address] Teradata Architect: Junior Little MD RBC/HPF, U 4 #/HPF High 0-3 [facility] Comment on above: Performed By: #### 1 [id number] #### [facility] [address] [place], [place] [phone] Teradata Architect: Junior Little MD Specific [place], U S>=1.030 Normal 1.001-1.035 [facility] Comment on above: Performed By: #### 1 [id number] #### [facility] [address] [place] [address] Teradata Architect: Junior Little MD U MICRO Indicated Normal [facility] Comment on above: Performed By: #### 1 [id number] #### [facility] [address] [place], [place] [id number] Teradata Architect: Junior Little MD Urobilinogen Qual, U 1.0 EU/dl Normal 0.1-1.0 mg/dl S [facility] Comment on above: Result Comment: Urob ilinogen, U: EU/dl and mg/dl are equivalent units. Performed By: #### 1 [id number] #### [facility] [address] [place], [place] [id number] Teradata Architect: Junior Little MD WBC/HPF, U 4 #/HPF Normal 0-5 [facility] Comment on above: Performed By: #### 1 [id number] #### [facility] [address] [place] [address] Teradata Architect: Junior Little MD CNOVon 03-10-2024 [facility] CHANDANA RAYMUNDO ([id number]) 1995 M Date Time Provider Department 03/10/24 11:[address] [facility] During your visit today, we recorded the following information about you: Temperature Pulse Respiration Blood pressure 97 degrees 68/minute 22/minute 143/94 Weight 143 kg Ignacia Justice APRN.FAMILY ASSISTANT 03/10/2024 1:15 PM Signed This note was created using NoteWriter. Subjective Chandana Gabe Raymundo is a 28 year old male. 28 year old male with PMH gout presents for complaints gout Acute onset of symptoms was 2 days ago +right great toe +redness +swelling +tenderness Denies trauma or injury History of gout, Endorses feels similar to prior bouts States he was at a constitution party and there was a cook out. Has used Ibuprofen The history is provided by the patient. No speech language pathology assistant was used. Pain (foot) Pain location: right [...] (more content not included)... Normal [facility] CNOVon 10-20-2023 [facility]OV Office Visit ([facility]) ---- CHANDANA RAYMUNDO ([id number]) 1995 M Date Time Provider Department 10/20/23 2:45 PM ANGEL FRIED [facility] During your visit today, we recorded the following information about you: Temperature Pulse Respiration Blood pressure 98.4 degrees 108/minute 16/minute 180/108 Weight 138.1 kg Angel Fried PA-C 10/20/2023 4:25 PM Signed This note was created using Bahoui. Subjective Chandana Raymundo is a 27 year [...] ANGEL FRIED on 10/20/23 Normal [facility] Absolute lymphocyte countOrd ered By: Valeriysymone Mercer on 10-12-2023 Lymphocytes Auto (Unsp spec) [#/Vol] 1.99 10*3/uL 0.83-4.51 [facility] Basophil percentageOrdered B y: Valeriy Mercer on 10-12-2023 Basophils/100 WBC (Bld) 0.5 % 0-1 [facility] Chloride [Moles/Vol] 109 mmol/L 98-107 [facility] Eosinophils/100 WBC (Bld) 1.0 % 0-5 [facility] Glucose [Mass/Vol] 99 mg/dL 74-106 [facility] Neutrophils (Bld) [#/Vol] 11.1 10*3/uL 2.0-7.7 [facility] Neutrophils/100 WBC (Bld) 77.9 % 47-70 [facility] Potassium [Moles/Vol] 3.8 mmol/L 3.5-5.1 [facility] Sodium [Moles/Vol] 140 mmol/L 136-145 [facility] WBC (Bld) [#/Vol] 14.2 10*3/uL 4.4-11.0 [facility] Blood erythrocytes count (nu mber/volume)Ordered By: Valeriysymone Mercer on 10-12-2023 RBC (Bld) [#/Vol] 4.94 10*6/uL 4.6-6.2 [facility] Blood hemoglobin measurement (mass/volume)Ordered By: Valeriysymone Mercer on 10-12-2023 Hemoglobin (Bld) [Mass/Vol] 15.7 g/dL 13.0-16.5 [facility] Blood lymphocytes/100 leukoc ytesOrdered By: Valeriysymone Mercer on 10-12-2023 Lymphocytes/100 WBC (Bld) 14.1 % 19-41 [facility] Blood monocytes/100 leukocyt esOrdered By: Valeriy Mercer on 10-12-2023 Monocytes/100 WBC (Bld) 5.9 % 0-10 [facility] Blood platelet mean volumeOr dered By: Valeriy Mercer on 10-12-2023 Platelet mean volume (Bld) [Entitic vol] 9.7 fL 6.2-12.0 [facility] Determination of erythrocyte mean corpuscular volume (MCV)Ordered By: Valeriysymone Mercer on 10-12-2023 MCV (RBC) [Entitic vol] 94.3 fL 80-94 [facility] Hematocrit Auto (Bld) [Volum e fraction]Ordered By: Valeriysymone Mercer on 10-12-2023 Hematocrit (Bld) [Volume fraction] 46.6 % 40-54 [facility] Influenza virus A and B and SARS-CoV-2 (COVID-19) Ag panel - Upper respiratory specimOrdered By: Valeriysymone Mercer on 10-12-2023 SARS-CoV-2 (COVID-19) RNA HUE+probe Ql (Resp) [facility] - Chemistry and C hemistry - challengeOrdered By: Valeriysymone Mercer on 10-12-2023 CO2 [Moles/Vol] 26.0 mmol/L 21.0-32.0 [facility] Urea nitrogen/Creatinine [Mass ratio] 12.5 mg/mg 10-20 [facility] - Hematology and Cell countsOrdered By: Valeriysymone Mercer on 10-12-2023 Erythrocyte distribution width (RBC) [Entitic vol] 39.5 fL 35.1-43.9 [facility] Erythrocyte distribution width (RBC) [Ratio] 11.4 % 11.6-14.6 [facility] Immature granulocytes/100 WBC (Bld) 0.600 % 0.0-0.9 [facility] Comment on above: IG% - Immature Granu locytes (promyelocytes, myelocytes and metamyelocytes) > 1% indicates that a LEFT SHIFT is Present. MCH (RBC) [Entitic mass] 31.8 pg 27.0-32.0 [facility] Nucleated RBC/100 WBC (Bld) [Ratio] 0 % 0-5 [facility] MCHC Auto (RBC) [Mass/Vol]Or dered By: Valeriysymone Mercer on 10-12-2023 MCHC (RBC) [Mass/Vol] 33.7 g/dL 32-36 [facility] No Panel InformationOrdered By: Valeriy Mercer on 10-12-2023 Estimated Creatinine Clearance Calc 62.27 ml/min [facility] Estimated GFR (MDRD) Amer 57 mL/min >60 [facility] Comment on above: GFR Calc Estimated GFR (MDRD) Non-Af Amer 47 mL/min >60 [facility] Comment on above: Non- GFR Calc Platelets bldOrdered By: Valeriy Mercer on 10-12-2023 Platelets (Bld) [#/Vol] 248 10*3/uL 150-450 [facility] Serum or plasma calcium khanh urement (mass/volume)Ordered By: Valeriy Mercer on 10-12-2023 Calcium [Mass/Vol] 9.3 mg/dL 8.5-10.1 [facility] Serum or plasma creatinine m easurement (mass/volume)Ordered By: Valeriy Mercer on 10-12-2023 Creatinine [Mass/Vol] 1.84 mg/dL 0.70-1.30 [facility] Comment on above: The validity of the calculated GFR & GFRAA in patients over 70 years has not been determined. Clinical correlation is essential. Serum or plasma urea nitroge n measurement (mass/volume)Ordered By: Valeriy Mercer on 10-12-2023 Urea nitrogen [Mass/Vol] 23 mg/dL 05-12 [facility] Thin prep Papanicolaou smear with manual screeningOrdered By: Valeriy Mercer on 10-12-2023 Thin prep Papanicolaou smear with manual screening 5 5-15 [facility] CNOVon 06-14-2023 CNOV Office Visit ([facility]) ---- CHANDANA RAYMUNDO ([id number]) 1995 M Date Time Provider Department 06/14/23 [...] with it. He verbalized understanding. Tiffany Samano APRN.FAMILY ASSISTANT Referring Provider: SELF [[id number]] Allergies As of [...] with it. He verbalized understanding. Tiffany Samano APRN.FAMILY ASSISTANT Encounter Status:Closed by TIFFANY SAMANO on 06/14/23 Normal [facility] Absolute lymphocyte countOrd ered By: Dr. Winkler on 03-08-2023 Lymphocytes Auto (Unsp spec) [#/Vol] 2.05 10*3/uL 0.83-4.51 [facility] Basophil percentageOrdered B y: Dr. Winkler on 03-08-2023 Basophils/100 WBC (Bld) 0.6 % 0-1 [facility] Chloride [Moles/Vol] 110 mmol/L 98-107 [facility] Eosinophils/100 WBC (Bld) 2.1 % 0-5 [facility] Glucose [Mass/Vol] 143 mg/dL 74-106 [facility] Comment on above: Fasting Glucose resu lt greater than or equal to 126 mg/dL suggests DIABETES MELLITUS per A.D.A. criteria. Neutrophils (Bld) [#/Vol] 7.3 10*3/uL 2.0-7.7 [facility] Neutrophils/100 WBC (Bld) 69.1 % 47-70 [facility] Potassium [Moles/Vol] 4.2 mmol/L 3.5-5.1 [facility] Sodium [Moles/Vol] 143 mmol/L 136-145 [facility] WBC (Bld) [#/Vol] 10.6 10*3/uL 4.4-11.0 [facility] Blood erythrocytes count (nu mber/volume)Ordered By: Dr. Winkler on 03-08-2023 RBC (Bld) [#/Vol] 4.54 10*6/uL 4.6-6.2 [facility] Blood hemoglobin measurement (mass/volume)Ordered By: Dr. Winkler on 03-08-2023 Hemoglobin (Bld) [Mass/Vol] 14.8 g/dL 13.0-16.5 [facility] Blood lymphocytes/100 leukoc ytesOrdered By: Dr. Winkler on 03-08-2023 Lymphocytes/100 WBC (Bld) 19.4 % 19-41 [facility] Blood monocytes/100 leukocyt esOrdered By: Dr. Winkler on 03-08-2023 Monocytes/100 WBC (Bld) 8.3 % 0-10 [facility] Blood platelet mean volumeOr dered By: Dr. Winkler on 03-08-2023 Platelet mean volume (Bld) [Entitic vol] 10.1 fL 6.2-12.0 [facility] Determination of erythrocyte mean corpuscular volume (MCV)Ordered By: Dr. Winkler on 03-08-2023 MCV (RBC) [Entitic vol] 97.1 fL 80-94 [facility] Hematocrit Auto (Bld) [Volum e fraction]Ordered By: Dr. Winkler on 03-08-2023 Hematocrit (Bld) [Volume fraction] 44.1 % 40-54 [facility] - Chemistry and C hemistry - challengeOrdered By: Dr. Winkler on 03-08-2023 CO2 [Moles/Vol] 27.0 mmol/L 21.0-32.0 [facility] Natriuretic peptide B (Bld) [Mass/Vol] 10.9 pg/mL 0-100 [facility] Urea nitrogen/Creatinine [Mass ratio] 15.7 mg/mg 10-20 [facility] - Hematology and Cell countsOrdered By: Dr. Winkler on 03-08-2023 Erythrocyte distribution width (RBC) [Entitic vol] 42.8 fL 35.1-43.9 [facility] Erythrocyte distribution width (RBC) [Ratio] 11.9 % 11.6-14.6 [facility] Immature granulocytes/100 WBC (Bld) 0.500 % 0.0-0.9 [facility] Comment on above: IG% - Immature Granu locytes (promyelocytes, myelocytes and metamyelocytes) > 1% indicates that a LEFT SHIFT is Present. MCH (RBC) [Entitic mass] 32.6 pg 27.0-32.0 [facility] Nucleated RBC/100 WBC (Bld) [Ratio] 0 % 0-5 [facility] MCHC Auto (RBC) [Mass/Vol]Or dered By: Dr. Winkler on 03-08-2023 MCHC (RBC) [Mass/Vol] 33.6 g/dL 32-36 [facility] No Panel InformationOrdered By: Dr. Winkler on 03-08-2023 Troponin I High Sensitivity 8 pg/mL 3.0-78.0 [facility] Comment on above: Please Note: New Renetta t Units and Gender Specific Reference Ranges. For more information see Policy Stat Procedure [place] High Sensitivity Troponin (TNIH) and attachments. D-Dimer Quantitative (PE/DVT) 0.30 FEU/ug/m 0.27-0.49 [facility] Comment on above: NORMAL D-Dimer level (<0.50) indicates no DVT or PE. Estimated Creatinine Clearance Calc 69.02 ml/min [facility] Estimated GFR (MDRD) Amer 64 mL/min >60 [facility] Comment on above: GFR Calc Estimated GFR (MDRD) Non-Af Amer 53 mL/min >60 [facility] Comment on above: Non- GFR Calc Platelets bldOrdered By: Dr. Winkler on 03-08-2023 Platelets (Bld) [#/Vol] 205 10*3/uL 150-450 [facility] Serum or plasma calcium khanh urement (mass/volume)Ordered By: Dr. Winkler on 03-08-2023 Calcium [Mass/Vol] 8.6 mg/dL 8.5-10.1 [facility] Serum or plasma creatinine m easurement (mass/volume)Ordered By: Dr. Winkler on 03-08-2023 Creatinine [Mass/Vol] 1.66 mg/dL 0.70-1.30 [facility] Comment on above: The validity of the calculated GFR & GFRAA in patients over 70 years has not been determined. Clinical correlation is essential. Serum or plasma urea nitroge n measurement (mass/volume)Ordered By: Dr. Winkler on 03-08-2023 Urea nitrogen [Mass/Vol] 26 mg/dL 7-18 [facility] Thin prep Papanicolaou smear with manual screeningOrdered By: Dr. Winkler on 03-08-2023 Thin prep Papanicolaou smear with manual screening 6 5-15 [facility] Absolute lymphocyte countOrd ered By: Dr. Ann on 02-19-2023 Lymphocytes Auto (Unsp spec) [#/Vol] 1.96 10*3/uL 0.83-4.51 [facility] Basophil percentageOrdered B y: Dr. Ann on 02-19-2023 Basophils/100 WBC (Bld) 0.4 % 0-1 [facility] Chloride [Moles/Vol] 108 mmol/L 98-107 [facility] Eosinophils/100 WBC (Bld) 1.5 % 0-5 [facility] Glucose [Mass/Vol] 86 mg/dL 74-106 [facility] Neutrophils (Bld) [#/Vol] 12.7 10*3/uL 2.0-7.7 [facility] Neutrophils/100 WBC (Bld) 78.7 % 47-70 [facility] Potassium [Moles/Vol] 3.7 mmol/L 3.5-5.1 [facility] Sodium [Moles/Vol] 138 mmol/L 136-145 [facility] WBC (Bld) [#/Vol] 16.1 10*3/uL 4.4-11.0 [facility] Blood erythrocytes count (nu mber/volume)Ordered By: Dr. Ann on 02-19-2023 RBC (Bld) [#/Vol] 5.15 10*6/uL 4.6-6.2 [facility] Blood hemoglobin measurement (mass/volume)Ordered By: Dr. Ann on 02-19-2023 Hemoglobin (Bld) [Mass/Vol] 17.3 g/dL 13.0-16.5 [facility] Blood lymphocytes/100 leukoc ytesOrdered By: Dr. Ann on 02-19-2023 Lymphocytes/100 WBC (Bld) 12.2 % 19-41 [facility] Blood monocytes/100 leukocyt esOrdered By: Dr. Ann on 02-19-2023 Monocytes/100 WBC (Bld) 6.6 % 0-10 [facility] Blood platelet mean volumeOr dered By: Dr. Ann on 02-19-2023 Platelet mean volume (Bld) [Entitic vol] 10.1 fL 6.2-12.0 [facility] COVID-19 virus antigen assay Ordered By: Dr. Ann on 02-19-2023 SARS-CoV-2 (COVID-19) Ag IA.rapid Ql (Resp) [facility] Determination of erythrocyte mean corpuscular volume (MCV)Ordered By: Dr. Ann on 02-19-2023 MCV (RBC) [Entitic vol] 95.5 fL 80-94 [facility] Hematocrit Auto (Bld) [Volum e fraction]Ordered By: Dr. Ann on 02-19-2023 Hematocrit (Bld) [Volume fraction] 49.2 % 40-54 [facility] - Chemistry and C hemistry - challengeOrdered By: Dr. Ann on 02-19-2023 CO2 [Moles/Vol] 25.0 mmol/L 21.0-32.0 [facility] Urea nitrogen/Creatinine [Mass ratio] 10.7 mg/mg 10-20 [facility] - Hematology and Cell countsOrdered By: Dr. Ann on 02-19-2023 Erythrocyte distribution width (RBC) [Entitic vol] 41.1 fL 35.1-43.9 [facility] Erythrocyte distribution width (RBC) [Ratio] 11.7 % 11.6-14.6 [facility] Immature granulocytes/100 WBC (Bld) 0.600 % 0.0-0.9 [facility] Comment on above: IG% - Immature Granu locytes (promyelocytes, myelocytes and metamyelocytes) > 1% indicates that a LEFT SHIFT is Present. MCH (RBC) [Entitic mass] 33.6 pg 27.0-32.0 [facility] Nucleated RBC/100 WBC (Bld) [Ratio] 0 % 0-5 [facility] MCHC Auto (RBC) [Mass/Vol]Or dered By: Dr. Ann on 02-19-2023 MCHC (RBC) [Mass/Vol] 35.2 g/dL 32-36 [facility] No Panel InformationOrdered By: Dr. Ann on 02-19-2023 Estimated Creatinine Clearance Calc 72.06 ml/min [facility] Estimated GFR (MDRD) Amer 67 mL/min >60 [facility] Comment on above: GFR Calc Estimated GFR (MDRD) Non-Af Amer 56 mL/min >60 [facility] Comment on above: Non- GFR Calc Troponin I High Sensitivity 9 pg/mL 3.0-78.0 [facility] Comment on above: Please Note: New Renetta t Units and Gender Specific Reference Ranges. For more information see Policy Stat Procedure [place] High Sensitivity Troponin (TNIH) and attachments. Platelets bldOrdered By: Dr. Ann on 02-19-2023 Platelets (Bld) [#/Vol] 256 10*3/uL 150-450 [facility] Serum or plasma calcium khanh urement (mass/volume)Ordered By: Dr. Ann on 02-19-2023 Calcium [Mass/Vol] 9.3 mg/dL 8.5-10.1 [facility] Serum or plasma creatinine m easurement (mass/volume)Ordered By: Dr. Ann on 02-19-2023 Creatinine [Mass/Vol] 1.59 mg/dL 0.70-1.30 [facility] Comment on above: The validity of the calculated GFR & GFRAA in patients over 70 years has not been determined. Clinical correlation is essential. Serum or plasma urea nitroge n measurement (mass/volume)Ordered By: Dr. Ann on 02-19-2023 Urea nitrogen [Mass/Vol] 17 mg/dL 7-18 [facility] Thin prep Papanicolaou smear with manual screeningOrdered By: Dr. Ann on 02-19-2023 Thin prep Papanicolaou smear with manual screening 5 5-15 [facility] ED Note-Provideron 8 ED Note-Provider [facility] ([place]) Pat Eduon 12-28-2017 [facility] ([place]) Patient Summary Documentson 12-28-2017 Patient Summary Documents [facility] ([place]) Vital Signs Date Time Vital Sign Value Performing Clinician Faci lity 04-28-2025 16:05-0400 Body temperature 98.3 [degF] No Primary Care Physician [facility] 04-28-2025 16:05-0400 Diastolic blood pressure 90 mm[Hg] No Primary Care Physician [facility] 04-28-2025 16:05-0400 Heart rate 98 /min No Primary Care Physician [facility] 04-28-2025 16:05-0400 Respiratory rate 16 /min No Primary Care Physician [facility] 04-28-2025 16:05-0400 SaO2% (BldA) [Mass fraction] 99 % No Primary Care Physician [facility] 04-28-2025 16:05-0400 Systolic blood pressure 133 mm[Hg] No Primary Care Physician [facility] 04-28-2025 13:18-0400 Body height 177.8 cm No Primary Care Physician [facility] 04-28-2025 13:18-0400 Body mass index (BMI) [Ratio] 43.2 kg/m2 No Primary Care Physician [facility] 04-28-2025 13:18-0400 Body weight 136.67 kg No Primary Care Physician [facility] 04-21-2025 10:44-0400 Body temperature 97.9 [degF] No Primary Care Physician [facility] 04-21-2025 10:44-0400 Diastolic blood pressure 109 mm[Hg] No Primary Care Physician [facility] 04-21-2025 10:44-0400 Heart rate 79 /min No Primary Care Physician [facility] 04-21-2025 10:44-0400 Respiratory rate 16 /min No Primary Care Physician [facility] 04-21-2025 10:44-0400 SaO2% (BldA) [Mass fraction] 97 % No Primary Care Physician [facility] 04-21-2025 10:44-0400 Systolic blood pressure 186 mm[Hg] No Primary Care Physician [facility] 04-21-2025 07:49-0400 Body height 177.8 cm No Primary Care Physician [facility] 04-21-2025 07:49-0400 Body mass index (BMI) [Ratio] 43 kg/m2 No Primary Care Physician [facility] 04-21-2025 07:49-0400 Body weight 136 kg No Primary Care Physician [facility] 04-16-2025 18:09-0400 Body temperature 98.2 [degF] No Primary Care Physician [facility] 04-16-2025 18:09-0400 Diastolic blood pressure 108 mm[Hg] No Primary Care Physician [facility] 04-16-2025 18:09-0400 Heart rate 82 /min No Primary Care Physician [facility] 04-16-2025 18:09-0400 Respiratory rate 16 /min No Primary Care Physician [facility] 04-16-2025 18:09-0400 SaO2% (BldA) [Mass fraction] 100 % No Primary Care Physician [facility] 04-16-2025 18:09-0400 Systolic blood pressure 174 mm[Hg] No Primary Care Physician [facility] 04-16-2025 17:28-0400 Body height 177.8 cm No Primary Care Physician [facility] 04-16-2025 17:28-0400 Body mass index (BMI) [Ratio] 43.5 kg/m2 No Primary Care Physician [facility] 04-16-2025 17:28-0400 Body weight 137.75 kg No Primary Care Physician [facility] 03-30-2025 14:35-0400 Body temperature 97.6 [degF] No Primary Care Physician [facility] 03-30-2025 14:35-0400 Diastolic blood pressure 108 mm[Hg] No Primary Care Physician [facility] 03-30-2025 14:35-0400 Heart rate 73 /min No Primary Care Physician [facility] 03-30-2025 14:35-0400 Respiratory rate 18 /min No Primary Care Physician [facility] 03-30-2025 14:35-0400 SaO2% (BldA) [Mass fraction] 98 % No Primary Care Physician [facility] 03-30-2025 14:35-0400 Systolic blood pressure 173 mm[Hg] No Primary Care Physician [facility] 03-30-2025 13:00-0400 Body height 177.8 cm No Primary Care Physician [facility] 03-30-2025 13:00-0400 Body mass index (BMI) [Ratio] 43.3 kg/m2 No Primary Care Physician [facility] 03-30-2025 13:00-0400 Body weight 136.98 kg No Primary Care Physician [facility] 12-22-2024 13:23-0500 Body temperature 98.2 [degF] No Primary Care Physician [facility] 12-22-2024 13:23-0500 Diastolic blood pressure 102 mm[Hg] No Primary Care Physician [facility] 12-22-2024 13:23-0500 Heart rate 89 /min No Primary Care Physician [facility] 12-22-2024 13:23-0500 Respiratory rate 15 /min No Primary Care Physician [facility] 12-22-2024 13:23-0500 SaO2% (BldA) [Mass fraction] 99 % No Primary Care Physician [facility] 12-22-2024 13:23-0500 Systolic blood pressure 155 mm[Hg] No Primary Care Physician [facility] 12-06-2024 04:31-0500 Body temperature 98.7 [degF] No Primary Care Physician [facility] 12-06-2024 04:31-0500 Diastolic blood pressure 108 mm[Hg] No Primary Care Physician [facility] 12-06-2024 04:31-0500 Heart rate 79 /min No Primary Care Physician [facility] 12-06-2024 04:31-0500 Respiratory rate 18 /min No Primary Care Physician [facility] 12-06-2024 04:31-0500 SaO2% (BldA) [Mass fraction] 97 % No Primary Care Physician [facility] 12-06-2024 04:31-0500 Systolic blood pressure 181 mm[Hg] No Primary Care Physician [facility] 03-10-2024 11:52-0400 Body temperature 97 [degF] Ignacia Justice LOOM TUNER.FAMILY ASSISTANT Work Phone: [facility] 03-10-2024 11:52-0400 Body weight 143 kg Ignacia Justice LOOM TUNER.FAMILY ASSISTANT Work Phone: [facility] 03-10-2024 11:52-0400 Diastolic blood pressure 94 mm[Hg] Ignacia Justice LOOM TUNER.FAMILY ASSISTANT Work Phone: [facility] 03-10-2024 11:52-0400 Heart rate 68 /min Ignacia Justice LOOM TUNER.FAMILY ASSISTANT Work Phone: [facility] 03-10-2024 11:52-0400 Respiratory rate 22 /min Ignacia Justice LOOM TUNER.FAMILY ASSISTANT Work Phone: [facility] 03-10-2024 11:52-0400 SaO2% (BldA) [Mass fraction] 97 % Ignacia Justice LOOM TUNER.FAMILY ASSISTANT Work Phone: [facility] 03-10-2024 11:52-0400 Systolic blood pressure 143 mm[Hg] Ignacia Justice LOOM TUNER.FAMILY ASSISTANT Work Phone: [facility] 10-20-2023 14:46-0500 Body temperature 98.4 [degF] Angel Athy PA-C Work Phone: [facility] 10-20-2023 14:46-0500 Body weight 138.07 kg Angel Athy PA-C Work Phone: [facility] 10-20-2023 14:46-0500 Diastolic blood pressure 108 mm[Hg] Angel Athy PA-C Work Phone: [facility] 10-20-2023 14:46-0500 Heart rate 108 /min Angel Athy PA-C Work Phone: [facility] 10-20-2023 14:46-0500 Respiratory rate 16 /min Angel Alcarazy PA-C Work Phone: [facility] 10-20-2023 14:46-0500 SaO2% (BldA) [Mass fraction] 97 % Angel Alcarazy PA-C Work Phone: [facility] 10-20-2023 14:46-0500 Systolic blood pressure 180 mm[Hg] Angel Alcarazy PA-C Work Phone: [facility] 10-12-2023 21:48-0500 Respiratory rate 14 /min [facility] 10-12-2023 20:13-0500 Heart rate 89 /min [facility] 10-12-2023 19:19-0500 Body height 177.[address] [facility] 10-12-2023 19:19-0500 Body mass index (BMI) [Ratio] 43.4 kg/m2 [facility] 10-12-2023 19:19-0500 Body temperature 97.2 [degF] [facility] 10-12-2023 19:19-0500 Body weight 137.[address] [facility] 10-12-2023 19:19-0500 Diastolic blood pressure 103 mm[Hg] [facility] 10-12-2023 19:19-0500 SaO2% (BldA) [Mass fraction] 96 % [facility] 10-12-2023 19:19-0500 Systolic blood pressure 166 mm[Hg] [facility] 05-25-2023 10:43-0400 Body height 177.[address] [facility] 05-25-2023 10:43-0400 Body mass index (BMI) [Ratio] 41.4 kg/m2 [facility] 05-25-2023 10:43-0400 Body temperature 98 [degF] [facility] 05-25-2023 10:43-0400 Body weight 131.[address] [facility] 05-25-2023 10:43-0400 Diastolic blood pressure 101 mm[Hg] [facility] 05-25-2023 10:43-0400 Heart rate 76 /min [facility] 05-25-2023 10:43-0400 Respiratory rate 14 /min [facility] 05-25-2023 10:43-0400 SaO2% (BldA) [Mass fraction] 97 % [facility] 05-25-2023 10:43-0400 Systolic blood pressure 151 mm[Hg] [facility] 03-08-2023 16:46-0400 Respiratory rate 16 /min [facility] 03-08-2023 15:00-0400 Diastolic blood pressure 104 mm[Hg] [facility] 03-08-2023 15:00-0400 Heart rate 83 /min [facility] 03-08-2023 15:00-0400 SaO2% (BldA) [Mass fraction] 96 % [facility] 03-08-2023 15:00-0400 Systolic blood pressure 150 mm[Hg] [facility] 03-08-2023 12:29-0400 Body height 177.[address] [facility] 03-08-2023 12:29-0400 Body mass index (BMI) [Ratio] 35.9 kg/m2 [facility] 03-08-2023 12:29-0400 Body temperature 96.9 [degF] [facility] 03-08-2023 12:29-0400 Body weight 113.[address] [facility] 02-19-2023 20:02-0400 Diastolic blood pressure 89 mm[Hg] [facility] 02-19-2023 20:02-0400 Heart rate 95 /min [facility] 02-19-2023 20:02-0400 Respiratory rate 18 /min [facility] 02-19-2023 20:02-0400 SaO2% (BldA) [Mass fraction] 93 % [facility] 02-19-2023 20:02-0400 Systolic blood pressure 150 mm[Hg] [facility] 02-19-2023 17:39-0400 Body height 177.[address] [facility] 02-19-2023 17:39-0400 Body mass index (BMI) [Ratio] 38.2 kg/m2 [facility] 02-19-2023 17:39-0400 Body temperature 97 [degF] [facility] 02-19-2023 17:39-0400 Body weight 121.[address] [facility] 04-19-2022 15:01-0400 Diastolic blood pressure 79 mm[Hg] [facility] Work Phone: 04-19-2022 15:01-0400 Heart rate 84 /min [facility] Work Phone: 04-19-2022 15:01-0400 Respiratory rate 17 /min [facility] Work Phone: 04-19-2022 15:01-0400 SaO2% (BldA) [Mass fraction] 97 % [facility] Work Phone: 04-19-2022 15:01-0400 Systolic blood pressure 152 mm[Hg] [facility] Work Phone: 04-19-2022 12:55-0400 Body height 180.[address] [facility] Work Phone: 04-19-2022 12:55-0400 Body mass index (BMI) [Ratio] 39.7 kg/m2 [facility] Work Phone: 04-19-2022 12:55-0400 Body temperature 98.5 [degF] [facility] Work Phone: 04-19-2022 12:55-0400 Body weight 129.[address] [facility] Work Phone: Encounters Encounter Date [...] Start: 12-22-2024 ambulatory Ed Physician Provider F acility:[facility] Start: 12-22-2024 End: 12-22-2024 Emergency department patient visit Dr. Ryan Crump MD -Emergency Department Work Phone: Start: 12-06-2024 End: 12-06-2024 Emergency department patient visit Dr. Chandana Huang DO -Emergency Department Work Phone: Start: 10-29-2024 End: 11-01-2024 Evaluation and management of inpatient 837 NO FAMILY PHYSICIAN Facility:[id number] Start: 03-10-2024 End: 03-10-2024 ambulatory Facility:[facility] Start: 03-10-2024 End: 03-10-2024 Patient encounter procedure Ignacia Justice LOOM TUNER.FAMILY ASSISTANT Work Phone: [facility] Comment on above: Gouty arthritis of r ight great toe (Primary Dx) Start: 10-20-2023 End: 10-20-2023 ambulatory Facility:[facility] Start: 10-20-2023 End: 10-20-2023 Patient encounter procedure Angel Fried PA-C Work Phone: [facility] Comment on above: COVID-19 (Primary Dx ); Hypertension, unspecified type Start: 10-12-2023 End: 10-12-2023 Emergency department patient visit [facility]Emergency Department Work Phone: Start: 06-14-2023 End: 06-14-2023 ambulatory Facility:[facility] Start: 05-25-2023 End: 05-25-2023 Emergency department patient visit [facility]gency [facility] Work Phone: Start: 03-08-2023 End: 03-08-2023 Patient encounter procedure Marylu Baer LOOM TUNER.FAMILY ASSISTANT Work Phone: [facility] Comment on above: Chest pain, unspecif ied type (Primary Dx); Bloody stool Start: 03-08-2023 End: 03-08-2023 Emergency department patient visit [facility]Emergency Department Start: 02-19-2023 End: 02-19-2023 Emergency department patient visit [facility]gency [facility] Start: 04-19-2022 End: 04-19-2022 Emergency department patient visit [facility]gency Department Start: 07-25-2021 End: 07-25-2021 [facility] Start: 05-29-2021 End: 05-29-2021 Emergency department patient visit [facility] Start: 12-28-2017 End: 12-28-2017 Emergency department patient [...] DTaP,Tdap,Td Vaccine (9 - Td or Tdap) [facility] Start: 04-28-2025 [facility] Start: 04-21-2025 [facility] Start: 04-16-2025 [facility] Start: 03-30-2025 [facility] Start: 12-22-2024 [facility] Start: 12-06-2024 [facility] Start: 12-06-2024 Respiratory secretion precautions [facility] Start: 06-26-2024 Influenza vaccination Influenza Vaccine (Season Ended) [facility] Start: 10-26-2023 Behavioral Health Screening Behavioral Health Screening [facility] Start: 10-12-2023 [facility] Start: 06-26-2023 Covid-19 Vaccine ( season) Covid-19 Vaccine ( season) [facility] Start: 06-26-2023 Influenza vaccination [facility] Start: 03-08-2023 Electrocardiographic procedure [facility] Start: 03-08-2023 [facility] Start: 02-19-2023 [facility] Start: 02-19-2023 End: 02-19-2023 [facility] Start: 10-26-2022 DEPRESSION ASSESSMENT DEPRESSION ASSESSMENT [facility] Start: 2014 Urine microalbumin profile DTAP,TDAP,TD (1 - Tdap) [facility] Start: 2013 HEPATITIS C SCREENING HEPATITIS C SCREENING [facility] Start: 2013 Hepatitis C screening Hepatitis C Screening [facility] Start: 2013 HIV SCREENING HIV SCREENING [facility] Start: 2013 HIV screening HIV Screening [facility] Start: 2001 PNEUMOCOCCAL (1 - PCV) PNEUMOCOCCAL (1 - PCV) [facility] Start: 2001 Pneumococcal vaccination Pneumococcal Vaccine (1 of 2 - PCV) [facility] Start: 04-22-1996 COVID-19 VACCINE (#1) COVID-19 VACCINE (#1) [facility] Start: 1995 HEPATITIS B (1 of 3 - 3-dose series) HEPATITIS B (1 of 3 - 3-dose series) [facility] Patient Education [facility] Work Phone: Patient referral [facility] Work Phone: Immunizations Immunization Date Immunization Notes Care Provider Fa cility 05-29-2023 tetanus toxoid, redu chloé diphtheria toxoid, and acellular pertussis vaccine, adsorbed [facility] 07-04-2015 tetanus toxoid, redu chloé diphtheria toxoid, and acellular pertussis vaccine, adsorbed [facility] 07-17-2009 influenza virus vaccine, unspecified formulation Angel Fried PA-C Work Phone: [facility] Payers Date Payer Category Payer Self-pay [id number] 2022 Medicaid [facility] MEDICAID [id number] 2022-Present [phone] [address] [place] [address] Medicaid [id number] 2013 Unknown [id number] 1995 Unknown [id number] 1995 Unknown [id number] 1995 Unknown [id number] 1959 Unknown [id number] Unknown [id number] Unknown [id number] Unknown [id number] Unknown [id number] Unknown [id number] Unknown [id number] Unknown [id number] Social History Date Type Detail Facility Start: 04-19-2022 End: 10-12-2023 Tobacco smoking status NHIS Unknown if ever smoked [facility] Start: 1995 Sex Assigned At Male W [facility] Start: 08-19-2015 End: 04-28-2025 Tobacco smoking status NHIS Smokes tobacco daily [facility] History of tobacco use Cigarette Smoker [facility] Start: 08-19-2015 End: 03-10-2024 Cigarettes smoked current (pack per day) - Reported 0.5 [facility] Start: 08-19-2015 End: 03-10-2024 Alcohol intake Current drinker of alcohol (finding) [facility] Start: 08-19-2015 [facility] Start: 1995 Sex Assigned At Not on file [facility] Start: 03-05-2014 Rare [facility] Start: 03-05-2014 None [facility] Start: 03-05-2014 With Family [facility] Start: 10-20-2023 End: 03-10-2024 Tobacco use panel [facility] Mental Status Date Assessment Result Facility 12-06-2024 Cognitive function Level Of Cons ciousness Awake;Alert;Appropriate;Follow s Commands [facility] Work Phone: 03-08-2023 Cognitive function Awake;Alert;A ppropriate;Follow s Commands [facility] Work Phone: Clinical Notes 02-19-2023 to 04-28-2025 Ignacia Justice APRN.FAMILY ASSISTANT - 03/10/2024 12:02 PM Angel Helm PA-C - 10/20/2023 4:21 PM EST Note Date & Type Note Facility 04-28-2025 Radiology Diagnostic study note [facility] Imaging Services [address] [place], [place] [address] Foot min 3 Views MR#: [id number] Acct: [id number] Name: CHANDANA RAYMUNDO Rep #: [id number] : 1995 M 29 From: Mena Conway MD PCP: Care Physician,No Primary Status: REG ER Study:Foot min 3 Views Date of Exam: 02/17 Exam# [id number] Ordering Dr: Kyara Fischer EXAM: XR Left [...] evaluation with CT is recommended. Reading Location: [facility] CC: PRADEEP Monroe; No Primary Care Physician ~ Bee Rancher: Signed [facility] 04-28-2025 Radiology Diagnostic study note [facility] Imaging Services [address] [place], [place] [id number] Ankle min 3 Views MR#: [id number] Acct: [id number] Name: CHANDANA RAYMUNDO Rep #: [id number] : 1995 M 29 From: Mena Conway MD PCP: Care Physician,No Primary Status: REG ER Study:Ankle min 3 Views Date of Exam: Exam# [id number] Ordering Dr: Kyara Fischer EXAM: XR Left [...] evaluation with CT is recommended. Reading Location: [facility] CC: PRADEEP Monroe; No Primary Care Physician ~ Bee Rancher: Signed [facility] 04-21-2025 Discharge summary [facility] 04-21-2025 Radiology Diagnostic study note [facility] Imaging Services [address] [place] [address] Ankle min 3 Views MR#: [id number] Acct: [id number] Name: CHANDANA RAYMUNDO Rep #: [id number] : 1995 M 29 From: Esteban Lopez MD PCP: Care Physician,No Primary Status: REG ER Study:Ankle min 3 Views Date of Exam: Exam# [id number] Ordering Dr: Estuardo Maloney MD PROCEDURE: ANKLE MIN 3 VIEWS 04/21/2025 REASON FOR EXAM: PAIN TECHNIQUE: ANKLE MIN 3 VIEWS COMPARISON: None FINDINGS: Bones: No fracture seen. Joints: Normal alignment. Mortise appears intact. No effusion. Soft tissues: Soft tissues are unremarkable. Other: RAD/Ankle min 3 Views IMPRESSION: NEGATIVE ANKLE SERIES Reading Location: [id number] CC: Dr. Sung Maloney MD; No Primary Care Physician ~ Bee Rancher: Signed [facility] 03-30-2025 Radiology Diagnostic study note [facility] Imaging Services [address] [place], [place] [address] Chest 1 View (Portable) MR#: [id number] Acct: [id number] Name: CHANDANA RAYMUNDO Rep #: [id number] : 1995 M 29 From: Elicia Dial MD PCP: Care Physician,No Primary Status: REG ER Study:Chest 1 View (Portable) Date of Exam: 03/30/25 Exam# [id number] Ordering Dr: Geovani Duarte DO PROCEDURE: CHEST [...] 1. No active cardiopulmonary disease. Reading Location: [place] [address] CC: Dr. Cruz Duarte DO; No Primary Care Physician ~ Bee Rancher: Signed [facility] 10-29-2024 Note ED Nursing Discharge Summary Entered On: 10/29/2024 22:04 EST Performed On: 10/29/2024 21:36 EST by Julieta Tucker RN [place] Information [id number] ED IV's : No IV ED IV Site Assessment : No IV ED Vitals Completed : Yes ED Final Assessment Completed : Yes ED Progress Note Completed : Yes Complete all PRN/Pain response forms? : N/A ED Disassociate Patient from Monitor : N/A Updated Depart Time : Yes Mode of Discharge : Stretcher Discharge Transportation : Ground ambulance ED Belongings sent w patient [id number] : Yes Valuables Complete : No Julieta Tucker RN - 10/29/2024 22:03 EST Education Instructions given to : Patient TeachBack Methodology : Printed Material Barriers to Learning : None evident Julieta Tucker RN - 10/29/2024 22:03 EST Post-Hospital Education Adult Grid Plan of Care : Verbalizes understanding Julieta Tucker RN - 10/29/2024 22:03 EST Valuables/Belongings Belongings Sent Home With : sent to [employer], [employer], cellphone car keys Julieta Tucker RN - 10/29/2024 22:03 EST ED Assistance Summary Assistance Given? : No Julieta Tucker RN - 10/29/2024 22:03 EST [facility] 03-10-2024 Note HNO ID: [id number] Author: IGNACIA JUSTICE APRN.FAMILY ASSISTANT Service: ? Author Type: Nurse Practitioner Type: [...] prior bouts States he was at a constitution party and there was a cook out. Has used Ibuprofen The history is provided by the patient. No speech language pathology assistant was used. Pain (foot) Pain location: right [...] to (more content not included)... [facility] 03-10-2024 History of Present illness Narrative This note was created using Giftangoriter. Subjective Chandana Raymundo is a 28 year old male. 28 year old male with PMH gout presents for complaints gout Acute onset of symptoms was 2 days ago +right great toe +redness +swelling +tenderness Denies trauma or injury History of gout, Endorses feels similar to prior bouts States he was at a constitution party and there was a cook out. Has used Ibuprofen The history is provided by the patient. No speech language pathology assistant was used. Pain (foot) Pain location: right [...] Avoid triggers F/U with PCP Ignacia Justice APRN.FAMILY ASSISTANT documented in this encounter [facility] 10-20-2023 Note HNO ID: [id number] Author: Angel Fried PA-C Service: ? Author Type: Physician Staking Engineer Type: Progress Notes Filed: 10/20/2023 4:25 PM Note Text: This note was created using Bahoui. Subjective Chandana Raymundo is a 27 year [...] hypertension today. Angel Fried PA-C [facility] 10-20-2023 History of Present illness Narrative This note was created using Swayter. Subjective Chandana Raymundo is a 27 year [...] Angel Fried PA-C documented in this encounter [facility] 10-12-2023 Discharge summary Note Date/Time October 12, 2023 7:51pm [facility] Medical Records Department [address] [place] [address] Emergency Department Summary 10/12/23 MR#: [id number] Acct: [id number] Name: CHANDANA RAYMUNDO Rep #:[id number] : [...] 77.9 H Lymph % (Auto) 14.1 L Story % (Auto) 5.9 Eos % (Auto) 1.0 [...] days. He also was instructed follow-up with [facility] in 1 to 2 weeks to [...] are elevated. You should follow-up at the [facility] for recheck in 1 to 2 weeks Disposition Disposition: Home, Self Care What to do if you have Problems For any increased pain, shortness of breath, bleeding, nausea or vomiting, chestpain, or any unexpected problems, contact your Primary Care Provider. Call [facility] ([phone]) or report to the closest Emergency Room. Call 911 if necessary. 10/12/232133 <Electronically signed by Valeriy Mercer MD> Cosigner Signature (if applicable): CC: No Primary Care Physician ~ Signed [facility] Work Phone: 1(127) 986-998208-20-2023 NoteHNO ID: [id number] Author: Tiffany Samano APRN.FAMILY ASSISTANT Service: ? Author Type: Nurse Practitioner Type: [...] with it. He verbalized understanding. Tiffany Samano APRN.[facility]05-14-[address] Winkler [facility] March 08, 2023 4:21pm Note Date/Time March 08, 2023 12:38 pm [facility] Medical Records Department [address] [place] [address] Emergency Department Summary 03/08/23 MR#: [id number] Acct: [id number] Name: CHANDANA RAYMUNDO Rep #:[id number] : 1995 27 From: Chad Ashby PCP: Care Physician,No Primary Status :REG ER Location: ED HPI History of Present Illness Chief Complaint: Chest Pain [facility] Medical History (Updated 03/08/23 @ 16:17 by [...] reviewed, Vital signs reviewed Constitutional: please see [facility] HENT: MMM Eyes: Pupils equal round and [...] pathognomonic EKG changes (no diffuse ST elevations, ME depressions). GI etiology (i.e. Boerhaave syndrome) less [...] % (Auto) 69.1 Lymph % (Auto) 19.4 Story % (Auto) 8.3 Eos % (Auto) 2.1 [...] (Auto) Neut % (Auto) Lymph % (Auto) Story % (Auto) Eos % (Auto) Baso % [...] Referrals: Adams Cartagena MD [Med Staff - Packing Clerk] - Activity Restrictions/Additional Instructions: Thank you for [...] your Primary Care Provider. Call [facility] ([phone]) or report to the closest Emergency Room. Call 911 if necessary. 03/08/23 1621 <Electronically signed by Chad Winkler DO> Cosigner Signature (if applicable): CC: No Primary Care Physician ~ Signed [facility] Work Phone: 1(651) 194-210005-14-2023 History of Present illness Narrative* Marylu Baer [...] wants to take himself. [facility] Ann [facility] February 19, 2023 9:03pm Note Date/Time February 19, 2023 7:0 6pm [facility] Medical Records Department [address] [place] [address] Emergency Department Summary 02/19/23 MR#: [id number] Acct: [id number] Name: KATALINABRIANCHANDANAULICES BAER Rep #:[id number] : [...] history of DVT/PE and no risk factors. [facility] Medical History Asthma attack Liver abscess Home [...] 78.7 H Lymph % (Auto) 12.2 L Story % (Auto) 6.6 Eos % (Auto) 1.5 [...] 18:36 EDT Reading Location ID and State: [facility] / MD , Service support , Discharge Plan Triage [...] Referrals: Basilio Dietz DO [Med Staff - Packing Clerk] - 3-5 Days Care Physician,No Primary [Primary Care Provider] - Disposition Disposition: Home, Self Care What to do if you have Problems For any increased pain, shortness of breath, bleeding, nausea or vomiting, chestpain, or any unexpected problems, contact your Primary Care Provider. Call [facility] ([phone]) or report to the closest Emergency Room. Call 911 if necessary. 02/19/232102 <Electronically signed by Ryley Ann DO> Cosigner Signature (if applicable): CC: No Primary Care Physician ~ Signed [facility] Work Phone: Discharge summary Author Sung Maloney [facility] Note Date/Time April 21, 2025 11:0 6am [facility] Medical Records Department [address] [place] [address] Emergency Department Summary 04/21/25 MR#: [id number] Acct: [id number] Name: CHANDANA RAYMUNDO Rep #:[id number] : [...] symptoms. No history of DVT or PE. [facility] Medical History (Updated 04/21/25 @ 11:03 by [...] my interpretation and according to the ultrasound drivability technician, the DVT scan is negative. These [...] is planning on following up at the [facility]. I reinforced the importance of following [...] 87.3 H Lymph % (Auto) 7.0 L Story % (Auto) 5.0 Eos % (Auto) 0.2 [...] 08:22 IMPRESSION: NEGATIVE ANKLE SERIES Reading Location: [id number] Discharge Plan Triage Chief Complaint: Lower Extremity [...] Primary Care Provider: Care Physician,No [facility] - As soon as possible Activity Restrictions/Additional Instructions: If the steroids make your ankle worse or you develop a fever, stop them and return to the ER immediately. Print Language: Maldivian Disposition Disposition: Home, Self Care What to do if you have Problems For any increased pain, shortness of breath, bleeding, nausea or vomiting, chestpain, or any unexpected problems, contact your Primary Care Provider. Call [facility] ([phone]) or report to the closest Emergency Room. Call 911 if necessary. 04/21/25 1106 <Electronically signed by Sung Maloney MD> Cosigner Signature (if applicable): CC: Irma Roque, ; No Primary Care Physician ~ Signed [facility] Work Phone: Evaluation noteNo assessment information available [facility] Work Phone: Evaluation note* Diagnosis Chest pain, unspecified type- Primary Bloody stool Blood in stool [facility] Diagnosis COVID-19- Primary Hypertension, unspecified type documented in this encounter [facility] note* Diagnosis Gouty arthritis of right great toe- [facility] Additional Instructions Your blood pressure reading is elevated today. It is very important that you follow-up to have this rechecked. Even if you feel fine, you need to have your blood pressure checked and maybe managed.[facility] Work Phone: Hospital Discharge instructions Additional Instructions Thank you for trusting us with your care today! Please take Tylenol (2 pills, 650 mg), ibuprofen (2 pills, 400 mg) every 6 hours as needed for pain and fever control. Please return to the emergency department if your symptoms change or worsen. Please follow with your primary care physician for further outpatient evaluation and management.[facility] Work Phone: Hospital Discharge instructions Additional Instructions 1. 2 puffs of inhaler every 2-4 hours while awake for the next 3 to 5 days and every 4-6 hours for shortness of breath or wheezing 2. Because you smoke you may have a cough up to 1 month. 3. Your blood pressure readings are elevated. [facility] instructions Additional Instructions Practice good hygiene, keep your skin clean and dry, use an antibacterial soap to wash when you shower. Follow-up with the clinic I referred you to if no improvement. Return for any worsening symptoms.[facility] Work Phone: Hospital Discharge instructionsAdditional Instructions If the steroids make your ankle worse or you develop a fever, stop them and return to the ER immediately.[facility] Work Phone: Hospital Discharge instructionsAdditional Instructions Rest, ice, elevate your foot to help decrease swelling. Take Tylenol as needed and use the [place] for breakthrough pain. Follow-up with the meters superintendent if it is not improving. [facility] Work Phone: Summary Purpose Family History [...] No April 19, 2022 1:01pm Power of Computer Support Analyst No April 19 1:01pm Advance Directive Response Recorded Date/ Time Advance Directives No November 04, 2016 12:07am Living Will No February 19, 2023 5:49pm Power of Computer Support Analyst No February 19 5:49pm Advance Directive Response Recorded Date/ Time Advance Directives No November 04, 2016 12:07am Living Will No March 08, 2023 1 2:39pm Power of Computer Support Analyst No March 08, 2023 12:39pm Advance Directive Response Recorded Date/ Time Advance Directives No November 04, 2016 12:07am Living Will No May 25, 2023 11:19am Power of Computer Support Analyst No May 25 11:19am Advance Directive Response Recorded Date/ Time Advance Directives No November 03, 2016 11:07pm Living Will No October 12, 2 023 7:28pm Power of Computer Support Analyst No October 12, 2023 7:28pm Advance Directive Response Recorded Date/ Time Living Will No December 06, 2 025 3:56am Do you have a Healthcare Power of Computer Support Analyst? No December 06, 2024 3:56am Living Will No December 22, 2 025 3:13pm Do you have a Healthcare Power of Computer Support Analyst? No December 22, 2024 3:13pm Do you have a Healthcare Power of Computer Support Analyst? No March 30, 2025 1:08pm Advance Directives No November 04, 2016 12:07am Advance Directive Response Recorded Date/ Time Living Will No December 22, 2 025 3:13pm Do you have a Healthcare Power of Computer Support Analyst? No December 22, 2024 3:13pm Do you have a Healthcare Power of Computer Support Analyst? No April 16, 2025 6:09pm Do you have a Healthcare Power of Computer Support Analyst? No March 30, 2025 1:08pm Advance Directives No November 04, 2016 12:07am Advance Directive Response Recorded Date/ Time Living Will No December 22, 2 025 3:13pm Do you have a Healthcare Power of Computer Support Analyst? No December 22, 2024 3:13pm Do you have a Healthcare Power of Computer Support Analyst? No April 16, 2025 6:09pm Do you have a Healthcare Power of Computer Support Analyst? No April 21, 2025 7:54am Do you have a Healthcare Power of Computer Support Analyst? No March 30, 2025 1:08pm Advance Directives No November 04, 2016 12:07am Advance Directive Response Recorded Date/ Time Do you have a Healthcare Power of Computer Support Analyst? No April 16, 2025 6:09pm Do you have a Healthcare Power of Computer Support Analyst? No April 21, 2025 7:54am Do you have a Healthcare Power of Computer Support Analyst? No April 28, 2025 2:35pm Do you have a Healthcare Power of Computer Support Analyst? No March 30, 2025 1:08pm Advance Directives [...] section and content) DATE CREATED AUTHOR 04/16/2018 [facility] ([place]) DATE CREATED AUTHOR AUTHOR'S ORGANIZ ATION 08/01/2021 [facility] DATE CREATED AUTHOR AUTHOR'S ORGANIZ ATION 03/12/2024 [facility] DATE CREATED AUTHOR AUTHOR'S ORGANIZ ATION 11/05/2024 [facility] DATE CREATED AUTHOR AUTHOR'S ORGANIZ ATION 08/05/[address] [facility] Goals (unrecognized section and content) [...] 2025 End: March 30, 2025 Dr. Cruz Duatre DO Attending Provider Active Start: March 30, 2025 End: March 30, 2025 Dr. Cruz Duarte DO Referring Provider Active Start: March 30, 2025 End: March 30, 2025 Dr. Cruz Daurte DO Emergency Provider Active Start: March 30, [...] Active Start: April 21, 2025 Dr. Sung Maloeny MD Referring Provider Active Start: April 21, [...] or prosecute any alcohol or drug abuse patient.[facility] AdministrationIn the event this information is protected by the Federal Confidentiality of Alcohol and Drug Abuse Patient Records regulations: The Federal rules restrict any use of the information to criminally investigate or prosecute any alcohol or drug abuse patient.[facility] AdministrationIn the event this information is protected by the Federal Confidentiality of Alcohol and Drug Abuse Patient Records regulations: The Federal rules restrict any use of the information to criminally investigate or prosecute any alcohol or drug abuse patient.[facility] Reason for Visit (unrecogniz ed section and [...] Procedures EST SAME DAY Self Express [facility] [address] [place] [address] Referral ID Status Reason Start Date Expiration Date Visits Requested Visits Authorized [id number] Pending Review Financial Clearance Required - Self [...] BE BASED ON THE PRIMARY CLINICAL RECORDS. [employer] provides no warranty or guarantee of the accuracy or completeness of information in this document.
[2025-10-08] MEDS: Ketorolac 30 MG/ML Syringe IV (03:18)
[2025-10-08] MEDS: 0.9% Normal Saline (500mL Bag) 500 ML 999 ML IV ×2 (03:18→04:17)
[2025-10-08] MEDS: DiphenhydrAMINE 50 MG/ML Syringe IV (03:19)
--- NOTE | 2025-10-08 03:26 | EDS_ITS ---
HPI History of Present Illness Chief Complaint: Other, Pain/Inj PFSH PFSH Medical History Gout History of substance abuse Asthma Kidney disease Liver abscess Asthma attack Home Medications ?Medication ?Instructions ?Recorded ?Last Taken ?Type albuterol sulfate 90 mcg/actuation 2 puff inhalation Q 4H PRN PRN 03/30/25 Unknown Rx aerosol inhaler (Ventolin HFA) Wheezing ##1 clindamycin HCl 300 mg capsule 300 mg PO TID 7 days #2 1 caps 10/08/25 Unknown Rx (Cleocin HCl) lisinopril 20 mg tablet 20 mg PO DAILY 30 days #30 t abs 10/08/25 Unknown Rx Allergy/AdvReac Type Severity Reaction Status Date / Time amoxicillin Allergy Hives Verified 10/08/25 02:40 Penicillins Allergy Hives Verified 10/08/25 02:40 Surgical History Hx of appendectomy Social History household members: spouse, children and none housing: homeless current occupational status: employed and unemployed Smoking Status: Current every day smoker tobacco type: cigarettes ROS ROS ED Constitutional Constitutional ED: Denies chills or fever(s) ENT ENT ED: Reports sore throat; Denies rhinorrhea Cardiovascular Cardiovascular: Denies chest pain Respiratory/Chest Respiratory/Chest: Denies cough or dyspnea Gastrointestinal Gastrointestinal: Denies abdominal pain, diarrhea, nausea or vomiting Musculoskeletal Musculoskeletal: Reports neck pain; Denies myalgias Integumentary Denies rash Neurologic Neurologic: Denies headache(s) Hematologic/Lymphatic Hematologic/Lymphatic: Denies easy bleeding or easy bruising Allergic/Immunologic Allergic/Immunologic ED: Denies mouth swelling or tongue swelling EXAM Physical Exam Const Vital Signs: 10/08/25 02:40 10/08/25 02:40 10/08/25 03:13 Temperature 97.9 F Temperature Source Oral Pulse Rate 121 H 108 H Respiratory Rate 20 H 20 H Respiratory Effort Short of Breath Labored Respiratory Pattern Tachypnea Blood Pressure 237/124 H 197/130 H Blood Pressure Mean 161 152 Pulse Ox 96 97 Oxygen Delivery Method Room Air Room Air 10/08/25 04:13 10/08/25 06:43 Temperature 98 F Temperature Source Pulse Rate 96 87 Respiratory Rate 18 16 Respiratory Effort Respiratory Pattern Blood Pressure 137/84 H 160/93 H Blood Pressure Mean 101 115 Pulse Ox 95 98 Oxygen Delivery Method Room Air Positive well nourished, well developed and obese General Appearance ED: well developed; Negative for pallor Nutritional Appearance: obese HEENT Reports moist mucous membranes HEENT Narrative: No tongue or lip swelling noted; no airway edema or compromise There is diffuse erythema in the posterior pharynx. There is mild hypertrophy of the left tonsil compared to right. No trismus change in voice or difficulty with secretions. No exudates noted. No hard palate petechiae. No obvious dental abscess noted Eyes PERRL and EOMs intact bilaterally General Eye ED: Negative for scleral icterus Neck supple Neck Narrative: Tender anterior cervical lymphadenopathy noted on left No overlying erythema or warmth to suggest secondary infection No crepitance palpated No brawny edema in the submental space to suggest Haile's angina Resp normal respiratory effort and clear to auscultation bilaterally Cardio regular rhythm Rate: tachycardic and other Other Details: Slightly tachycardic rate with regular rhythm No murmurs rubs or gallop Radial and carotid pulses are equal and symmetric Extremity normal to inspection Extremity Narrative: No asymmetric edema no pitting edema negative Homans' sign bilaterally Neuro oriented x3, CN's II-XII intact bilaterally and no sensory deficits noted Neuro Narrative: GCS of 15 Cranial nerves II through XII are grossly intact without focal neurologic de ficit No pronator drift no dysmetria no truncal ataxia NIH stroke scale score of 0 Sensorium / Orientation: alert Motor Exam: strength 5/5 throughout Psych Mood & Affect: anxious Skin no rashes or lesions noted and no wounds General Skin Exam: Negative for jaundice or pallor MDM MDM MDM Narrative Medical decision making narrative: Patient arrived to the ER hypertensive and tachycardic. Anxious and I felt this was a big cause for the elevated readings. However chart review does reveal he has chronic kidney disease and this could also be a cause for his persistent hypertension. In order to assess for endorgan damage such as cardiac ischemia an EKG was obtained. This revealed no acute findings. In order to assess for acute kidney injury basic blood work was also ordered which shows a creatinine of 2.16. Chart review reveals that just a few months ago it was 2.1 indicating chronic kidney disease but not acute on chronic kidney injury. As he does have a sore throat there is concern this could be viral or bacterial pharyngitis/strep throat. As the swelling and pain was localized more to the left side I also had concern for peritonsillar abscess. Therefore I did elect to perform a CT of the neck along with basic strep swab. The strep swab was given indicating strep pharyngitis. He does have penicillin allergy and therefore he was started on clindamycin. After receiving 1 L of IV fluids as well as Toradol and Benadryl the patient's heart rate reduced below 100 and his blood pressure also improved and reduced between 15 and 25% which is the goal reduction in the ER. At this time he is resting comfortably he does not show signs of sepsis he does not show signs of acute on chronic kidney injury nor is he having airway compromise or need for emergent surgical intervention/drainage for potential abscess or epiglottitis. Secondary to this he will be given clindamycin and lisinopril to help with the strep throat as well as hypertension and can follow-up with us family doctor and/or gravity manager to continue further treatment regarding his chronic kidney disease and hypertension History & Record Review Discussion w/independent historian: Patient Lab Data Attestation: I reviewed the patient's lab results. Labs: Laboratory Results - last 24 hr 10/08/25 03:19 WBC 14.7 H RBC 4.64 Hgb 15.2 Hct 44.3 MCV 95.5 H MCH 32.8 H MCHC 34.3 RDW Std Deviation 40.9 RDW Coeff of Maryanne 11.8 Plt Count 241 MPV 10.4 Immature Gran % (Auto) 0.300 Neut % (Auto) 80.1 H Lymph % (Auto) 11.7 L Robeson % (Auto) 5.6 Eos % (Auto) 1.8 Baso % (Auto) 0.5 Absolute Neuts (auto) 11.8 H Absolute Lymphs (auto) 1.72 Nucleated RBC % 0 Sodium 138 Potassium 3.8 Chloride 105 Carbon Dioxide 19.3 L Anion Gap 14 BUN 19 Creatinine 2.16 H Estim Creat Clear Calc 70.25 Est GFR (MDRD) Non-Af 41 L BUN/Creatinine Ratio 8.9 L Glucose 252 H Calcium 8.6 Radiography Diagnostic Testing: Clinical Impression(s) from Imaging Studies Soft Tissue Neck CT 10/08/25 03:07 IMPRESSION: Probable tonsillitis. No abscess formation. Reading Location: [facility] Discharge Plan Triage Chief Complaint: Other, Pain/Inj ED Provider: Tanmay Santos Dx/Rx/DC Orders Clinical Impression: Acute streptococcal pharyngitis, Chronic kidney disease, Hypertension Instructions: CKD Dc, ED High Blood Pressure New Begin Tx, ED Pharyngitis, Strep (Confirmed) Prescriptions: New clindamycin HCl [Cleocin HCl] 300 mg capsule 300 mg PO TID 7 Days Qty: 21 0RF lisinopril 20 mg tablet 20 mg PO DAILY 30 Days Qty: 30 2RF No Action albuterol sulfate [Ventolin HFA] 90 mcg/actuation HFA aerosol inhaler 2 puff inhalation Q4H PRN PRN (Reason: Wheezing) Qty: 1 0RF Rx Instructions: dispense with spacer Stand Alone Forms: ED Work / School Excuse Primary Care Provider: Care Physician,No Primary Referrals: Bella Medina MD [Med Staff - Consulting, Nephrology] Referral Note: Hypertension and chronic kidney disease Jhon Romero MD [Med Staff - Active Staff, Family Practice] Care Physician,No Primary [Primary Care Provider, Medical] Activity Restrictions/Additional Instructions: You tested positive for strep pharyngitis/strep throat which is the cause of your throat pain. Take the prescribed antibiotic to help resolve this. It would typically take 2 to 3 days before you notice improvement. If you have difficulty swallowing water or even your saliva and then return to the ER for repeat evaluation. Because of your hypertension and chronic kidney disease you should follow-up with nephrology. Begin taking the lisinopril to help reduce your blood pressure and protect your kidneys and seek further treatment options by nephrology Print Language: Montenegrin Disposition Disposition: Home, Self Care Discharge Date/Time: 10/08/25 06:46
[2025-10-08 03:34] LABS: Hematocrit 44.3 % (40-54); Hemoglobin 15.2 g/dL (13.0-16.5); Immature Granulocytes Count 0.040 X10^3/uL (0.0-0.0); Mean Corp Hgb Conc 34.3 g/dL (32-36); Mean Corpuscular Volume 95.5 fL (80-94); Mean Platelet Vol. 10.4 fl (6.2-12.0); NRBC Flagged by Analyzer 0 % (0-5); Platelet Count 241 K/mm3 (150-450); RBC Distribution Width CV 11.8 % (11.6-14.6); RBC Distribution Width SD 40.9 fl (35.1-43.9); Red Blood Count 4.64 M/mm3 (4.6-6.2); White Blood Count 14.7 K/mm3 (4.4-11.0)
[2025-10-08 03:53] LABS: Anion Gap 14 (5-15); BUN 19 mg/dL (4-19); BUN/Creat Ratio 8.9 RATIO (10-20); Calcium,Total 8.6 mg/dL (7.6-11.0); Carbon Dioxide 19.3 mmol/L (21.0-32.0); Chloride 105 mmol/L (98-108); Estimated Creatinine Clearance 70.25 ml/min (50-250); Glucose 252 mg/dL (70-99); Potassium 3.8 mmol/L (3.3-5.1)
[2025-10-08 04:13] VITALS: BP 137/84; PULSE 96; RESP 18; O2SAT 95
[2025-10-08 06:43] VITALS: BP 160/93; PULSE 87; RESP 16; TEMP 36.6; O2SAT 98
== END 2025-10-08 06:46 | disposition home or self-care (01) ==
PROVIDERS: Emergency Provider Emergency Medicine; Visit Provider Emergency Medicine
DX: J02.0 Streptococcal pharyngitis (principal); N18.9 Chronic kidney disease, unspecified; Z59.00 Homelessness unspecified; F17.210 Nicotine dependence, cigarettes, uncomplicated; I12.9 Hypertensive chronic kidney disease with stage 1 through stage 4 chronic kidney disease, or unspecified chronic kidney disease; J45.909 Unspecified asthma, uncomplicated; Z79.899 Other long term (current) drug therapy; E66.9 Obesity, unspecified
CPT/HCPCS: 70491; 80048; 85025; 87651; 93005; 96361; 96374; 96375; 96376; 99284; Q9967; A4216